=== PATIENT | female | born 1970 | race Caucasian/White ===

== ENCOUNTER 2018-01-06 18:20 | Emergency (ER) | payer OTHER ==
--- OUTSIDE RECORDS SUMMARY | 2018-01-06 18:23 | XMS REPORT | Clinical Summary ---
:1970 Author Organization [facility] Address [address] [place] [address] Care Team Providers Name Role Phone Robert Perez MD Primary Care Provider Allergies Active Allergy Reactions Severity Noted Date Comments Iodine And Iodide Containing Products 04/06/2017 Current Medications Prescription Sig. Disp. Refills Start Date End Date Status ALPRAZolam (NIRAVAM) 0.5 MG TAKE 1 TABLET BY 2 03/09/2017 Active disintegrating tablet MOUTH ONCE A DAY NEEDED amLODIPine (NORVASC) 5 mg Take 5 mg by 3 03/02/2017 Active tablet mouth once daily. atorvastatin (LIPITOR) 40 Take 40 mg by 3 03/02/2017 Active MG tablet mouth once daily. ciprofloxacin HCl (CIPRO) TK 1 T PO BID 0 02/26/2017 Active 250 MG tablet ciprofloxacin, mixture, Take by mouth 0 03/07/2017 Active (CIPRO XR) 500 mg 24 hr once daily. tablet doxycycline (VIBRA-TABS) TK 1 T PO BID 0 04/04/2017 Active 100 MG tablet WITH FOOD. ezetimibe (ZETIA) 10 mg Take 10 mg by 3 03/02/2017 Active tablet mouth once daily. lamoTRIgine (LaMICtal) 200 Take 200 mg by 0 03/30/2017 Active MG tablet mouth once daily. omeprazole (PriLOSEC) 40 MG Take 40 mg by 3 03/02/2017 Active capsule mouth once daily. phenazopyridine (PYRIDIUM) TK 1 T PO TID 0 02/26/2017 Active 200 MG tablet sertraline (ZOLOFT) 100 MG Take 100 mg by 0 03/30/2017 Active tablet mouth once daily. sulfamethoxazole-trimethopr TAKE 1 TABLET BY 0 04/01/2017 Active im (BACTRIM DS) 800-160 mg MOUTH EVERY 12 per tablet HOURS FOR 10 DAYS telmisartan (MICARDIS) 80 Take 80 mg by 3 03/03/2017 Active MG tablet mouth once daily. 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 Endometriosis of bladder; Adenomyosis; Pelvic pain in female; Dyspareunia, female 12/20/2017 Telephone Obstetrics Kajal Owens Gynecology Jose Ramirez MD 12/19/2017 Office Visit Obstetrics Chas Anders, Endometriosis ( Primary Dx); Gynecology Endometriosis, bladder; Pelvic pain; Adenomyosis; Dyspareunia, female 09/14/2017 Office Visit Chas Reynolds, Endometriosis ( Primary Dx); Gynecology Endometriosis, bladder; Pelvic pain; Adenomyosis 08/09/2017 Telephone Urology Leighann Zuleta MD 08/05/2017 Office Visit Urology Leighann Zuleta, History of hematuria ( Primary Dx); Endometriosis 04/12/2017 Procedure Pass Radiology 04/12/2017 Procedure Pass Radiology 04/12/2017 Orders Only Urology Mariza Dawson Gross hematuria LUIS F Nicole (Primary Dx) 04/06/2017 Lab Lab Leighann Zuleta MD 04/06/2017 Office Visit Urology Leighann Zuleta Gross hematuria MD (Primary Dx) after 01/05/2017 Family History Medical History Relation Name Comments Cancer Brother Alzheimer's disease Father Hypertension Father Cancer Mother Hypertension Mother Relation Name Status Comments Brother Alive colon Father Alive Mother Alive breast Social History Tobacco Use Types Packs/Day Years Used Date Current Every Day Smoker Smokeless Tobacco: Never Used Alcohol Use Drinks/Week oz/Week Comments No Sex Assigned at Date Recorded Not on file Last Filed Vital Signs Vital Sign Reading Time Taken Blood Pressure 141/85 12/19/2017 3:33 PM CDT Pulse 91 12/19/2017 3:33 PM CDT Temperature - - Respiratory Rate - - Oxygen Saturation - - Inhaled Oxygen Concentration - - Weight 113 kg (250 lb) 12/19/2017 3:33 PM CDT Height 165.1 cm (5' 5") 04/15/2017 9:25 AM CDT Body Mass Index 41.6 12/19/2017 3:33 PM CDT Plan of Treatment Date Type Specialty Care Team Description 01/25/2018 Office Visit Physical Therapy Chas Eisenberg MD [address] [facility] [address] [place], [place] [id number] Graciela Dempsey, PT 03/20/2018 Office Visit Obstetrics and Gynecology Chas Eisenberg MD [address] [facility] [address] [place], [place] [id number] Health Maintenance Due Date Last Done Comments PAP SMEAR 1989 INFLUENZA VACCINE 04/19/2018 Results US Pelvic Transvaginal (09/14/2017 11:38 AM) Specimen Performing Laboratory [facility] [address] [place] [address] Narrative Uterus:7.35x3.33x4.87 cm, texture heterogeneous Endometrium: 5.1 mm Free Fluid:Small amount Rt Ovary: 2.88x1.86x2.72 (2.49cm) Rt Adnexa:wnl Lt Ovary: 2.72x2.74x2.93 (2.8cm) Lt Adnexa:wnl kt POC urinalysis dipstick (08/05/2017 12:18 PM)Only the most recent of2 resultswithin the time period is included. Component Value Ref Range Color urine, POC Yellow Clarity urine, POC Clear Glucose urine, POC Negative Negative Bilirubin urine, POC Negative Negative Ketones urine, POC Negative Negative Specific gravity urine, POC 1.025 1.005 - 1.030 Blood urine, POC Moderate (A) Negative pH urine, POC 5.5 5.0, 5.5, 6.0, 6.5, 7.0, 7.5, 8.0, 8.5 Protein urine, POC Negative Negative Urobilinogen urine, POC <2.0 <2.0 Nitrite urine, POC Negative Negative Leukocyte esterase urine, POC Small (A) Negative Specimen Performing Laboratory Urine Urinalysis, automated with microscopy (08/05/2017 12:10 PM)Only the most recent of2 resultswithin the time period is included. Component Value Ref Range Color, UA DARK YELLOW YELLOW Appearance TURBID (A) CLEAR Specific gravity, urine 1.020 1.001 - 1.035 pH, urine 5.5 5.0 - 8.0 Glucose, urine NEGATIVE NEGATIVE Bilirubin, UA NEGATIVE NEGATIVE Ketones, UA NEGATIVE NEGATIVE Occult blood, urine 2+ (A) NEGATIVE Protein, UA NEGATIVE NEGATIVE Nitrite, UA NEGATIVE NEGATIVE Leukocyte esterase, UA 1+ (A) NEGATIVE WBC, UA 40-60 (A) < OR=5 /HPF RBC, UA 3-10 (A) < OR=2 /HPF Squamous epithelial cells, UA 0-5 < OR=5 /HPF Bacteria, UA NONE SEEN NONE SEEN /HPF Hyaline casts, UA NONE SEEN NONE SEEN /LPF Specimen Performing Laboratory [facility] Urine culture (08/05/2017 12:10 PM)Only the most recent of2 resultswithin the time period is included. Component Value Ref Range Urine culture SEE NOTE Comment: CULTURE, URINE, ROUTINE MICRO NUMBER:[id number] TEST STATUS: FINAL SPECIMEN SOURCE: URINE SPECIMEN QUALITY:ADEQUATE RESULT:Multiple organisms present, each less than 10,000 CFU/mL. These organisms, commonly found on external and internal genitalia, are considered to be colonizers. No further testing performed. Specimen Performing Laboratory Urine [facility] MRI Abdomen W Wo Contrast (04/15/2017 10:30 AM) Specimen Performing Laboratory [address] [address] Narrative EXAMINATION:MRI ABDOMEN W WO CONTRAST CLINICAL HISTORY:R31.0 Gross hematuria, Gross hematuria COMPARISON:None. TECHNIQUE: Multiplanar, multisequence MRI of the abdomen with and without intravenous gadolinium. FINDINGS: Kidneys are normal in size. There is an 8 mm cyst in the left midpole. No suspicious renal lesion. MRI is not sensitive for detection of stone disease. No obvious stones are seen. There is no hydronephrosis. No abnormal thickening or enhancement is seen along the visualized proximal course of the ureters. There is marked fatty infiltration of the liver. Unremarkable gallbladder, pancreas, and spleen. No adrenal mass. No retroperitoneal adenopathy. Colon diverticulosis. IMPRESSION: No suspicious renal lesion. Subcentimeter left midpole cyst. Marked hepatic steatosis. [facility]-[id number] Procedure Note [facility], Radiology Results - 04/15/2017 4:40 PM CDT EXAMINATION: MRI ABDOMEN W WO CONTRAST CLINICAL HISTORY: R31.0 Gross hematuria, Gross hematuria COMPARISON: None. TECHNIQUE: Multiplanar, multisequence MRI of the abdomen with and without intravenous gadolinium. FINDINGS: Kidneys are normal in size. There is an 8 mm cyst in the left midpole. No suspicious renal lesion. MRI is not sensitive for detection of stone disease. No obvious stones are seen. There is no hydronephrosis. No abnormal thickening or enhancement is seen along the visualized proximal course of the ureters. There is marked fatty infiltration of the liver. Unremarkable gallbladder, pancreas, and spleen. No adrenal mass. No retroperitoneal adenopathy. Colon diverticulosis. IMPRESSION: No suspicious renal lesion. Subcentimeter left midpole cyst. Marked hepatic steatosis. [facility]-[id number] MRI Pelvis W Wo Contrast (04/15/2017 10:30 AM) Specimen Performing Laboratory [facility] [address] [place] [address] Narrative EXAMINATION:MRI PELVIS W WO CONTRAST CLINICAL HISTORY:R31.0 Gross hematuria, GROSS HEMATURIA TECHNIQUE:Multiplanar, multisequence MR imaging examination of the pelvis obtained prior to and following gadolinium IV contrast. COMPARISON:None. IMPRESSION: 1.Uterus measures 8.1 x 3.1 x 6.1 cm. Nabothian cysts. Diffuse thickening of the junctional zone extending to the serosa, and measuring approximately 14 mm. Tiny punctate T1 and T2 hyperintense foci. Findings indicate adenomyosis. The endometrial stripe is poorly visualized, atrophic. section scar noted. 2.Ovaries demonstrate nothing unusual. 3.No free fluid or lymphadenopathy identified within the pelvis. Regional marrow signal show no suspicious lesion. 4.Wall thickening in the sigmoid colon partially imaged, and there is some mild stranding especially anteriorly in the proximal sigmoid colon. Scattered diverticula present. Findings indicate mild or early acute epididymitis. Follow-up to ensure resolution recommended. No fluid collection is identified indicate an abscess on the [id number] of this exam. 5.Urinary bladder mostly collapsed and not well seen. There does appear to be some wall irregularity and attenuation at the left posterior lateral aspect of the bladder dome, series 7 image 21. Detail limited as the bladder is slightly collapsed. Given the history of hematuria however, correlation with cystoscopy is advised. The visualized left ureter does not appear dilated. This is just anterolateral to the expected location of the left UVJ. 6.Visualized portions of the sciatic nerves well-maintained. SUMMARY: Early acute sigmoid diverticulitis. Follow-up to ensure resolution recommended. Focal wall irregularity and attenuation at the left posterolateral aspect of the bladder dome. Cystoscopy correlation advised. Adenomyosis. [facility]-[id number] Procedure Note [facility]m Interface, Radiology Results Incoming - 04/15/2017 8:11 PM CDT EXAMINATION: MRI PELVIS W WO CONTRAST CLINICAL HISTORY: R31.0 Gross hematuria, GROSS HEMATURIA TECHNIQUE: Multiplanar, multisequence MR imaging examination of the pelvis obtained prior to and following gadolinium IV contrast. COMPARISON: None. IMPRESSION: 1. Uterus measures 8.1 x 3.1 x 6.1 cm. Nabothian cysts. Diffuse thickening of the junctional zone extending to the serosa, and measuring approximately 14 mm. Tiny punctate T1 and T2 hyperintense foci. Findings indicate adenomyosis. The endometrial stripe is poorly visualized, atrophic. section scar noted. 2. Ovaries demonstrate nothing unusual. 3. No free fluid or lymphadenopathy identified within the pelvis. Regional marrow signal show no suspicious lesion. 4. Wall thickening in the sigmoid colon partially imaged, and there is some mild stranding especially anteriorly in the proximal sigmoid colon. Scattered diverticula present. Findings indicate mild or early acute epididymitis. Follow- up to ensure resolution recommended. No fluid collection is identified indicate an abscess on the [id number] of this exam. 5. Urinary bladder mostly collapsed and not well seen. There does appear to be some wall irregularity and attenuation at the left posterior lateral aspect of the bladder dome, series 7 image 21. Detail limited as the bladder is slightly collapsed. Given the history of hematuria however, correlation with cystoscopy is advised. The visualized left ureter does not appear dilated. This is just anterolateral to the expected location of the left UVJ. 6. Visualized portions of the sciatic nerves well-maintained. SUMMARY: Early acute sigmoid diverticulitis. Follow-up to ensure resolution recommended. Focal wall irregularity and attenuation at the left posterolateral aspect of the bladder dome. Cystoscopy correlation advised. Adenomyosis. [facility]-[id number] Basic metabolic panel (04/06/2017 12:49 PM) Component Value Ref Range Glucose 117 (H) 65 - 99 mg/dL Comment: Fasting reference interval For someone without known diabetes, a glucose value between 100 and 125 mg/dL is consistent with prediabetes and should be confirmed with a follow-up test. BUN, whole blood 12 7 - 25 mg/dL Creatinine 1.00 0.50 - 1.10 mg/dL EGFR Non-Afr. Mauritian 67 > OR=60 mL/min/1.73m2 EGFR 77 > OR=60 mL/min/1.73m2 BUN/creatinine ratio NOT APPLICABLE 6 - 22 (calc) Sodium 137 135 - 146 mmol/L Potassium 4.5 3.5 - 5.3 mmol/L Chloride 100 98 - 110 mmol/L CO2 28 20 - 31 mmol/L Calcium 10.2 8.6 - 10.2 mg/dL Specimen Performing Laboratory [facility] Surgical pathology request (04/06/2017 10:38 AM) Component Value Ref Range Surgical pathology report See link below for PDF Lab Report Specimen Performing Laboratory [facility] DEPARTMENT OF PATHOLOGY AND GENOMIC MEDICINE [address] [place] [phone] after 01/05/2017 Insurance Payer Benefit Plan / Group Subscriber ID Type Phone Address AETNA AETNA PPO OPEN CHOICE xxxxxxxxx PPO Home: [id number] [phone] [place] [id number]
[2018-01-06] MEDS ORDERED: TETANUS & DIPHTHERIA TOX,ADULT 0.5 ML VIAL ONE (19:00)
[2018-01-06] MEDS ORDERED: HYDROCODONE/APAP 10/325 TAB ONE (19:10)
[2018-01-06] MEDS ORDERED: LIDOCAINE 2% MPF 5 ML VIAL ONE (19:41)
--- NOTE | 2018-01-06 20:21 | EDPHYS ---
Physician Documentation [facility] Name: Kelley Ordaz Age: 47 yrs Sex: Female : 1970 Arrival Date: 01/06/2018 Time: 18:24 Bed 16 Private MD: ED Physician Ted Booker HPI: 01/06 20:30 This 47 yrs old Female presents to ER via Wheelchair with complaints of pm1 Insect Bite. 20:30 The patient presents with cellulitis of the right leal. Description: The affected area pm1 is approximately 1.5 cm(s), circular. Onset: The symptoms/episode began/occurred 2 day(s) ago. Possible cause(s): Shaving legs. Associated signs and symptoms: Pertinent negatives: discharge, drainage, fever. Modifying factors: the symptoms are alleviated by nothing, the symptoms are aggravated by walking, touching. Severity of symptoms: in the emergency department the symptoms are actually worse. The patient has experienced similar episodes in the past, a few times. 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 - Social history:: Smoking status: Patient uses tobacco products, smokes one pack cigarettes per day. ROS: 20:30 Constitutional: Negative for fever, chills, and weight loss, Cardiovascular: Negative pm1 for chest pain, palpitations, and edema, Respiratory: Negative for shortness of breath, cough, wheezing, and pleuritic chest pain, Abdomen/GI: Negative for abdominal pain, nausea, vomiting, diarrhea, and constipation, Back: Negative for injury and pain. 20:30 Neuro: Negative for headache, weakness, numbness, tingling, and seizure. 20:30 Skin: Positive for cellulitis, of the right leal. Exam: 20:30 Constitutional: This is a well developed, well nourished patient who is awake, alert, pm1 and in no acute distress. Head/Face: Normocephalic, atraumatic. Chest/axilla: Normal chest wall appearance and motion. Nontender with no deformity. No lesions are appreciated. Cardiovascular: Regular rate and rhythm with a normal S1 and S2. No gallops, murmurs, or rubs. Normal PMI, no JVD. No pulse deficits. Respiratory: Lungs have equal breath sounds bilaterally, clear to auscultation and percussion. No rales, rhonchi or wheezes noted. No increased work of breathing, no retractions or nasal flaring. Abdomen/GI: Soft, non-tender, with normal bowel sounds. No distension or tympany. No guarding or rebound. No evidence of tenderness throughout. Back: No spinal tenderness. No costovertebral tenderness. Full range of motion. 20:30 Skin: abscess, not appreciated, cellulitis, that is mild, on the right leal. Vital Signs: 18:44 BP 184 / 70; Pulse 92; Resp 16; Temp 98.3; Pulse Ox 100% on R/A; Weight 113.4 kg; hb Height 5 ft. 6 in. (167.64 cm); Pain 9/10; 19:12 BP 156 / 86; Pulse 95; Resp 18; Pulse Ox 98% on R/A; ea 19:49 BP 179 / 98; Pulse 87; Resp 18; Pulse Ox 99% on R/A; ea 20:43 BP 159 / 85; Pulse 78; Resp 18; Temp 98.2; Pulse Ox 99% on R/A; Pain 3/10; ea 18:44 Body Mass Index 40.35 (113.40 kg, 167.64 cm) hb MDM: 18:48 Patient medically screened. pm1 20:15 ED course: Needle aspiration performed without any purulent drainage. Will treat pm1 patient with antibiotics for cellulitis. Local anesthesia with lidocaine 1 mL. Patient tolerated procedure well. 20:19 Data reviewed: vital signs. Data interpreted: Pulse oximetry: on room air is 99 %. pm1 Interpretation: normal. Counseling: I had a detailed discussion with the patient and/or guardian regarding: the historical points, exam findings, and any diagnostic results supporting the discharge/admit diagnosis, the need for outpatient follow up, to return to the emergency department if symptoms worsen or persist or if there are any questions or concerns that arise at home. Administered Medications: 19:12 Drug: [place] 10 mg-325 mg 1 tabs Route: PO; ea 20:44 Follow up: Response: No adverse reaction; Pain is decreased ea 20:30 Drug: Lidocaine (1 %) 5 ml {Note: administered by provider.} Volume: 5 ml; Route: ea Infiltration; Disposition: 01/06/18 20:20 Discharged to Home. Impression: Cellulitis of right lower limb. - Condition is Stable. - Discharge Instructions: Cellulitis. - Prescriptions for Bactrim DS 800- 160 mg Oral Tablet - take 1 tablet by ORAL route every 12 hours for 10 days; 20 tablet. Tylenol- Codeine #3 300-30 mg Oral Tablet - take 2 tablets by ORAL route every 6 hours As needed; 20 tablet. - Medication Reconciliation Form, Thank You Letter, Antibiotic Education, Prescription Opioid Use form. - Follow up: Emergency Department; When: As needed; Reason: Worsening of condition. Follow up: Private Physician; When: 2 - 3 days; Reason: Recheck today's complaints, Continuance of care, Re-evaluation by your physician. - Problem is new. - Symptoms have improved. Addendum: 01/21/2018 19:55 Co-signature as Attending Physician, Ted Booker MD I agree with the assessment and k dr plan of care. Signatures: Ted Booker MD MD [facility] Dexter Gagnon NP INSTRUMENT SPECIALIST pm1 Mery Masterson RN RN Beronica Gold RN RN ea Corrections: (The following items were deleted from the chart) 01/06 20:47 20:20 01/06/2018 20:20 Discharged to Home. Impression: Cellulitis of right lower limb. ea Condition is Stable. Forms are Medication Reconciliation Form, Thank You Letter, Antibiotic Education, Prescription Opioid Use. Follow up: Emergency Department; When: As needed; Reason: Worsening of condition. Follow up: Private Physician; When: 2 - 3 days; Reason: Recheck today's complaints, Continuance of care, Re-evaluation by your physician. Problem is new. Symptoms have improved. pm1
--- NOTE | 2018-01-06 20:21 | ER ---
Nurse's Notes [facility] Name: Kelley Ordaz Age: 47 yrs Sex: Female : 1970 Arrival Date: 01/06/2018 Time: 18:24 Bed 16 Private MD: Diagnosis: Cellulitis of right lower limb Presentation: 01/06 18:43 Presenting complaint: Patient states: Painful insect bite on right leal x 2 days. Pt hb report pain has become severe and she is unable to bear weight. Seen at urgent care today for same s/s, received clindamycin IM. Transition of care: patient was not received from another setting of care. Onset of symptoms was January 05, 2018. Care prior to arrival: None. 18:43 Method Of Arrival: Wheelchair hb 18:43 Acuity: DEJUAN 3 hb 20:46 Initial Sepsis Screen: Does the patient meet any 2 criteria? No. Patient's initial ea sepsis screen is negative. Does the patient have a suspected source of infection? No. Patient's initial sepsis screen is negative. Triage Assessment: 19:30 Bite description: bite sustained to right leal by pt reports she was bitten by spider. 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 - Social history:: Smoking status: Patient uses tobacco products, smokes one pack cigarettes per day. Screenin:06 Abuse screen: Denies threats or abuse. Nutritional screening: No deficits noted. ea Tuberculosis screening: No symptoms or risk factors identified. Fall Risk None identified. Assessment: 19:03 General: Appears in no apparent distress. Behavior is calm, cooperative, appropriate ea for age. Pain: Complains of pain in right leal Pain currently is 10 out of 10 on a pain scale. Quality of pain is described as aching. Neuro: Level of Consciousness is awake, alert, obeys commands, Oriented to person, place, time, situation. Cardiovascular: Patient's skin is warm and dry. Respiratory: Airway is patent Respiratory effort is even, unlabored, Respiratory pattern is regular, symmetrical. GI: No signs and/or symptoms were reported involving the gastrointestinal system. : No signs and/or symptoms were reported regarding the genitourinary system. EENT: No signs and/or symptoms were reported regarding the EENT system. Derm: Skin patient reports she was bit by an insect. red area noted to right leal Skin is normal. 20:42 Reassessment: Patient and/or family updated on plan of care and expected duration. Pain ea level reassessed. Patient is alert, oriented x 3, equal unlabored respirations, skin warm/dry/pink. Discharge instruction given to patient, verbalized the understanding of instruction. Vital Signs: 18:44 BP 184 / 70; Pulse 92; Resp 16; Temp 98.3; Pulse Ox 100% on R/A; Weight 113.4 kg; hb Height 5 ft. 6 in. (167.64 cm); Pain 9/10; 19:12 BP 156 / 86; Pulse 95; Resp 18; Pulse Ox 98% on R/A; ea 19:49 BP 179 / 98; Pulse 87; Resp 18; Pulse Ox 99% on R/A; ea 20:43 BP 159 / 85; Pulse 78; Resp 18; Temp 98.2; Pulse Ox 99% on R/A; Pain 3/10; ea 18:44 Body Mass Index 40.35 (113.40 kg, 167.64 cm) hb ED Course: 18:24 Patient arrived in ED. al2 18:44 Triage completed. hb 18:45 Arm band placed on right wrist. hb 18:47 Dexter Gagnon NP is PHCP. pm1 18:47 Ted Booker MD is Attending Physician. pm1 19:03 Beronica Gold, ABI is Primary Nurse. ea 19:07 Patient has correct armband on for positive identification. Bed in low position. Call ea light in reach. Side rails up X 1. 20:42 No provider procedures requiring assistance completed. Patient did not have IV access ea during this emergency room visit. Administered Medications: 19:12 Drug: [place] 10 mg-325 mg 1 tabs Route: PO; ea 20:44 Follow up: Response: No adverse reaction; Pain is decreased ea 20:30 Drug: Lidocaine (1 %) 5 ml {Note: administered by provider.} Volume: 5 ml; Route: ea Infiltration; Outcome: 20:20 Discharge ordered by . pm1 20:45 Discharged to home via wheelchair. ea 20:45 Discharged to home via wheelchair, with significant other. 20:45 Condition: improved 20:45 Discharge instructions given to patient, family, Instructed on discharge instructions, follow up and referral plans. medication usage, Demonstrated understanding of instructions, follow-up care, medications, Prescriptions given X 2. 20:47 Patient left the ED. ea Signatures: Dexter Gagnon, SHEILA MECHANICAL ENGINEERING TECHNOLOGIST pm1 Mery Masterson RN RN hb Antunez, Elena, RN RN ea Love, Angelica al2
[2018-01-06 20:55] VITALS: BP 159/85; TEMP 98.2; O2SAT 99
== END 2018-01-06 20:47 | disposition home or self-care (01) ==
LOC: ER 18:20
DX: L03.115 Cellulitis of right lower limb (principal); E78.5 Hyperlipidemia, unspecified; I10 Essential (primary) hypertension; F32.9 Major depressive disorder, single episode, unspecified; Z91.09 Other allergy status, other than to drugs and biological substances
CPT/HCPCS: 90714; 99283

== ENCOUNTER 2018-02-20 12:54 | Emergency (ER) | payer SELFPAY ==
--- OUTSIDE RECORDS SUMMARY | 2018-02-20 12:56 | XMS REPORT | Clinical Summary ---
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 Endometriosis of bladder; Adenomyosis; Pelvic pain in [...] Zuleta Gross hematuria MD (Primary Dx) after 02/19/2017 Family History Medical History Relation Name Comments [...] Treatment Date Type Specialty Care Team Description 03/20/2018 Office Visit Obstetrics and Gynecology Chas Eisenberg MD [address] [facility] [address] [place] [address] Health Maintenance Due Date Last Done Comments CERVICAL CANCER SCREENING 1989 INFLUENZA VACCINE 04/19/2018 Results US Pelvic Transvaginal (09/14/2017 11:38 AM) Specimen Performing Laboratory [facility] [address] [place] [address] Narrative Uterus:7.35x3.33x4.87 cm, texture heterogeneous Endometrium: 5.1 [...] SEE NOTE Comment: CULTURE, URINE, ROUTINE MICRO NUMBER:[id number] TEST STATUS: FINAL SPECIMEN SOURCE: URINE SPECIMEN QUALITY:ADEQUATE RESULT:Multiple organisms present, each less than 10,000 CFU/mL. These organisms, commonly found on external and internal genitalia, are considered to be colonizers. No further testing performed. Specimen Performing Laboratory Urine [facility] MRI Abdomen W Wo Contrast (04/15/2017 10:30 AM) Specimen Performing Laboratory [address] [address] Narrative EXAMINATION:MRI ABDOMEN W WO CONTRAST CLINICAL [...] Subcentimeter left midpole cyst. Marked hepatic steatosis. [id number] Procedure Note [facility], Radiology Results - 04/15/2017 4:40 PM [...] Subcentimeter left midpole cyst. Marked hepatic steatosis. [id number] MRI Pelvis W Wo Contrast (04/15/2017 10:30 AM) Specimen Performing Laboratory [facility] [address] [place] [address] Narrative EXAMINATION:MRI PELVIS W WO CONTRAST CLINICAL [...] is identified indicate an abscess on the rvcak-pw-zbdb of this exam. 5.Urinary bladder mostly collapsed [...] the bladder dome. Cystoscopy correlation advised. Adenomyosis. [id number] Procedure Note Hm Interface, Radiology Results Incoming [...] is identified indicate an abscess on the uujxz-ru-gszq of this exam. 5. Urinary bladder mostly [...] the bladder dome. Cystoscopy correlation advised. Adenomyosis. [id number] Basic metabolic panel (04/06/2017 12:49 PM) Component Value Ref Range Glucose 117 (H) 65 - 99 mg/dL Comment: Fasting reference interval For someone without known diabetes, a glucose value between 100 and 125 mg/dL is consistent with prediabetes and should be confirmed with a follow-up test. BUN, whole blood 12 7 - 25 mg/dL Creatinine 1.00 0.50 - 1.10 mg/dL EGFR Non-Afr. Slovenian 67 > OR=60 mL/min/1.73m2 EGFR 77 > [...] for PDF Lab Report Specimen Performing Laboratory [facility] DEPARTMENT OF PATHOLOGY AND GENOMIC MEDICINE [address] [place] [address] after 02/19/2017 Insurance Payer Benefit Plan / Group Subscriber ID Type Phone Address AETNA AETNA PPO OPEN CHOICE xxxxxxxxx PPO
--- NOTE | 2018-02-20 14:45 | ER ---
Nurse's Notes [facility] Name: Kelley Ordaz Age: 47 yrs Sex: Female : 1970 Arrival Date: 02/20/2018 Time: 12:57 Bed Waiting Private MD: Edvin Perez B Diagnosis: Presentation: 02/20 13:09 Presenting complaint: Patient states: "I have like an insect bite on my left hip area aa5 since and Tuesday it started bleeding and getting more red". Transition of care: patient was not received from another setting of care. Onset of symptoms was 2017. Risk Assessment: Do you want to hurt yourself or someone else? Patient reports no desire to harm self or others. Initial Sepsis Screen: Does the patient meet any 2 criteria? No. Patient's initial sepsis screen is negative. Does the patient have a suspected source of infection? No. Patient's initial sepsis screen is negative. Care prior to arrival: None. 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 - Social history:: Smoking status: Patient uses tobacco products, smokes one pack cigarettes per day. - Ebola Screening: : No symptoms or risks identified at this time. Vital Signs: 13:11 BP 145 / 74; Pulse 88; Resp 18 S; Temp 97.0(TE); Pulse Ox 96% on R/A; Weight 113.4 kg aa5 (R); Height 5 ft. 6 in. (167.64 cm) (R); Pain 6/10; 13:11 Body Mass Index 40.35 (113.40 kg, 167.64 cm) aa5 ED Course: 12:57 Patient arrived in ED. mr 12:58 Edvin Perez MD is Private Physician. mr 13:10 Triage completed. aa5 13:10 Arm band placed on. aa5 13:55 Sushma Resendez FNP-C is PSYCHIATRICP. snw 13:55 Navneet Taylor MD is Attending Physician. snw 14:44 Kenzie Malik, RN is Primary Nurse. iw Administered Medications: No medications were administered Outcome: 14:45 Patient left the ED. iw 14:45 Eloped from waiting room, before seeing physician Time discovered patient gone: February at 14:45 Signatures: Sushma Resendez FNP-C CHIEF TECHNOLOGY OFFICER-[facility] Aleyda Barrett mr Kenzie Malik, RN RN iw Crystal Mccurdy RN RN aa5
[2018-02-20 14:48] VITALS: BP 145/74; TEMP 97; O2SAT 96
== END 2018-02-20 14:45 | disposition left against medical advice (07) ==
LOC: ER 12:54
DX: Z53.21 Procedure and treatment not carried out due to patient leaving prior to being seen by health care provider (principal)
CPT/HCPCS: 99281

== ENCOUNTER 2018-02-22 11:43 | Day surgery (SDC) | payer OTHER ==
--- OUTSIDE RECORDS SUMMARY | 2018-02-22 11:46 | XMS REPORT | Clinical Summary ---
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 Endometriosis of bladder; Adenomyosis; Pelvic pain in [...] Zuleta Gross hematuria MD (Primary Dx) after 02/21/2017 Family History Medical History Relation Name Comments [...] Visit Obstetrics and Gynecology Chas Eisenberg MD [address] [facility] [address] [place] [address] Health Maintenance Due Date Last Done Comments CERVICAL CANCER SCREENING 1989 INFLUENZA VACCINE 04/19/2018 Results US Pelvic Transvaginal (09/14/2017 11:38 AM) Specimen Performing Laboratory [facility] [address] [place] [address] Narrative Uterus:7.35x3.33x4.87 cm, texture heterogeneous Endometrium: 5.1 [...] SEE NOTE Comment: CULTURE, URINE, ROUTINE MICRO NUMBER:[id number] TEST STATUS: FINAL SPECIMEN SOURCE: URINE SPECIMEN QUALITY:ADEQUATE RESULT:Multiple organisms present, each less than 10,000 CFU/mL. These organisms, commonly found on external and internal genitalia, are considered to be colonizers. No further testing performed. Specimen Performing Laboratory Urine [facility] MRI Abdomen W Wo Contrast (04/15/2017 10:30 AM) Specimen Performing Laboratory [address] [address] Narrative EXAMINATION:MRI ABDOMEN W WO CONTRAST CLINICAL [...] Subcentimeter left midpole cyst. Marked hepatic steatosis. [facility]-[id number] Procedure Note [facility], Radiology Results - 04/15/2017 4:40 [...] Subcentimeter left midpole cyst. Marked hepatic steatosis. [facility]-[id number] MRI Pelvis W Wo Contrast (04/15/2017 10:30 AM) Specimen Performing Laboratory [facility] [address] [place] [address] Narrative EXAMINATION:MRI PELVIS W WO CONTRAST CLINICAL [...] is identified indicate an abscess on the awbiy-ir-eouq of this exam. 5.Urinary bladder mostly collapsed [...] the bladder dome. Cystoscopy correlation advised. Adenomyosis. [facility]-[id number] Procedure Note Hm Interface, Radiology Results Incoming [...] is identified indicate an abscess on the ssrxz-yu-bujc of this exam. 5. Urinary bladder mostly [...] the bladder dome. Cystoscopy correlation advised. Adenomyosis. [facility]-[id number] Basic metabolic panel (04/06/2017 12:49 PM) Component Value Ref Range Glucose 117 (H) 65 - 99 mg/dL Comment: Fasting reference interval For someone without known diabetes, a glucose value between 100 and 125 mg/dL is consistent with prediabetes and should be confirmed with a follow-up test. BUN, whole blood 12 7 - 25 mg/dL Creatinine 1.00 0.50 - 1.10 mg/dL EGFR Non-Afr. [place]er 67 > OR=60 mL/min/1.73m2 EGFR 77 > [...] for PDF Lab Report Specimen Performing Laboratory [facility] DEPARTMENT OF PATHOLOGY AND GENOMIC MEDICINE [address] [place] [address] after 02/21/2017 Insurance Payer Benefit Plan / Group Subscriber ID Type Phone Address AETNA AETNA PPO OPEN CHOICE xxxxxxxxx PPO
[2018-02-22] MEDS ORDERED: Ringers Lactate 1,000 ML IV ONE (11:51)
[2018-02-22] MEDS ORDERED: PROPOFOL 200 MG/20 ML VIAL IV ONE (12:03)
[2018-02-22] MEDS ORDERED: FENTANYL CITR 100 MCG/2 ML ONE (12:04)
[2018-02-22] MEDS ORDERED: LIDOCAINE 1% MPF 5 ML VIAL ONE (12:04)
[2018-02-22] MEDS ORDERED: MIDAZOLAM HCL 2 MG/2 ML INJ ONE (12:04)
[2018-02-22] MEDS ORDERED: ONDANSETRON HCL 40 MG/20 ML VIAL ONE (12:06)
[2018-02-22 12:23] LABS: Absolute Lymphocytes (CBC) 2.4 K/uL (0.7-4.9); Absolute Monocytes 0.7 K/uL (0.1-1.3); Basophils % 1.1 % (0-1.3); Eosinophils % 2.1 % (0-4.4); Lymphocytes % 23.1 % (15.3-44.8); MCH 30.5 pg (27.0-35.0); MCV 88.5 fL (80-100); MPV 8.8 fL (7.6-11.3); Monocytes % 6.6 % (3.3-12.3); RBC Red Blood Cell Count 4.98 M/uL (3.86-4.86)
[2018-02-22 12:26] LABS: Specific Gravity 1.025 (1.005-1.030)
[2018-02-22] MEDS: CEFAZOLIN/SWI 1gm 1 GM/10 ML SYR ONE ×2 (12:27→12:31)
--- NOTE | 2018-02-22 12:27 | RAD REPORT ---
EXAM DESCRIPTION: RAD - Chest Pa And Lat (2 Views) - 02/22/2018 12:22 pm CLINICAL HISTORY: Preop chest, emergent drainage of soft tissue abscess COMPARISON: December 2016, August 2016 TECHNIQUE: PA and lateral views of the chest were obtained. FINDINGS: The lungs are clear of an acute infiltrate, mass or failure finding. Lung markings are sim ilar to the comparison studies. Heart size is normal and central vasculature is within normal limit s. No pleural effusion or pneumothorax seen. No acute bony finding noted. No aortic abnormality. IMPRESSION: No acute cardiopulmonary process. No significant change back to August 2016.
[2018-02-22 12:34] LABS: Potassium 3.8 mEq/L (3.6-5.0)
[2018-02-22] MEDS ORDERED: EPHEDRINE SULF 50 MG/5 ML SYR ONE (12:39)
[2018-02-22] MEDS ORDERED: BUPIVACAINE 0.5% Inj,MDV 50 mL VIAL ONE (12:42)
--- NOTE | 2018-02-22 13:01 | P.BOP ---
Preoperative diagnosis: left buttock cellulitis / abscess Postoperative diagnosis: same Primary procedure: Incision and drainage of left buttock complex abscess [id number] Estimated blood loss: <10cc Specimen: necrotic devitalized tissue Findings: as above Anesthesia: General Complications: None Drain(s): Other Transferred to: Recovery Room Condition: Good
[2018-02-22] MEDS: MEPERIDINE HCL 50 MG/ML AMP ONE ×2 (13:13→13:18)
[2018-02-22] MEDS ORDERED: CODEINE 30MG/APAP 300MG TAB ONE (13:38)
[2018-02-22 14:05] VITALS: BP 115/64; TEMP 98.1; O2SAT 92
--- NOTE | 2018-02-22 16:31 | DS ---
Date of Discharge: 02/22/2018 Diagnosis: Left buttock cellulitis and abscess. Procedure: Incision and drainage of complex left buttock cellulitis and abscess, 5 x 5 x 3 cm. Disposition: Home. Activity: As tolerated. No heavy lifting. Followup: Follow up in my office in 1 week. Call for appointment [phone]. Discharge Medications: Include normal saline. Dressing changes daily. CHARLEE/JACKELINE Voice ID: [id number] Report ID: [id number]
--- NOTE | 2018-02-22 23:31 | OP ---
Date of Procedure: 02/22/2018 Surgeon: Pepe Coats MD Preoperative Diagnosis: Left buttocks cellulitis and abscess. Postoperative Diagnosis: Left buttocks cellulitis and abscess. Procedures: Incision and drainage of left buttock complex abscess, 5 x 5 x 3 cm. Specimen: Necrotic tissue. Anesthesia: General plus local. Indications: This is a case of a 47-year-old patient, comes to us with above diagnosis. I fully exp lained the benefits, alternatives, and risks of incision and drainage of complex abscess and debridem ent, which include, but are not limited to infection, bleeding, damage to adjacent structures anesthe rony complications, nonhealing wound, NE, and even . She also understood this may not relieve an y symptoms. She might need more than one surgical intervention. She also understood the importance of wound care and she thinks her and her can do the dressing changes. The patient came this morning. The area was marked by me and the patient in the holding room. Description Of Procedure: The patient was brought to the operating room and placed in the supine pos ition. Anesthesia was done without complication. A time-out was called. The patient was placed in lateral decubitus position with proper protection. The area was prepped and draped in usual sterile fashion. An incision was made in the skin in a circular fashion since the patient has necrotic tissu e that needs to be opened that led into an abscess. With multiple loculations, they were explored, o pened, irrigated, and hemostasis was obtained. Those loculations were aspirated. The area was irrig ated. was then debrided. Then, we noticed the cavity to be about 5 x 5 x 3 cm. The area was packed with wet-to-dry dressing. The patient tolerated the procedure well. The patient was sent to recovery in stable condition. CHARLEE/JACKELINE Voice ID: [id number] Report ID: [id number]
== END 2018-02-22 14:45 | disposition home or self-care (01) ==
LOC: OR 11:43
PROVIDERS: ATTEND Surgery
PROC: 0J990ZZ Drainage of Buttock Subcutaneous Tissue and Fascia, Open Approach (ICD-10-PCS; principal; 2018-02-22 12:30)
DX: L02.31 Cutaneous abscess of buttock (principal); I10 Essential (primary) hypertension; I25.10 Atherosclerotic heart disease of native coronary artery without angina pectoris; K21.9 Gastro-esophageal reflux disease without esophagitis; F17.210 Nicotine dependence, cigarettes, uncomplicated; Z88.3 Allergy status to other anti-infective agents; Z82.49 Family history of ischemic heart disease and other diseases of the circulatory system; Z80.0 Family history of malignant neoplasm of digestive organs; Z80.3 Family history of malignant neoplasm of breast
CPT/HCPCS: 36415; 71046; 80048; 81025; 82962; 85025; 87070; 87075; 87077; 87186; 87205; 88304; J0690; J2175; J2250; J2405; J3010

== ENCOUNTER 2018-11-11 12:39 | Inpatient (IN) | payer OTHER ==
--- OUTSIDE RECORDS SUMMARY | 2018-11-11 12:41 | XMS REPORT | Clinical Summary ---
:1970 Author Organization [facility] Address [address] [place] [address] Care Team Providers Name Role Phone Robert Perez MD Primary Care Provider Allergies Active Allergy Reactions Severity Noted Date Comments Iodine And Iodide Containing Products 04/06/2017 Medications Medication Sig Dispensed Refills Start Date End Date Status ALPRAZolam (NIRAVAM) 0.5 TAKE 1 TABLET 2 03/09/2017 Active MG disintegrating tablet BY MOUTH ONCE A DAY NEEDED amLODIPine (NORVASC) [...] Active tablet mouth once daily. lamoTRIgine (LaMICtal) Take 200 mg by 0 03/30/2017 Active 200 MG tablet mouth once daily. omeprazole (PriLOSEC) 40 Take 40 mg by 3 03/02/2017 Active MG capsule mouth once daily. phenazopyridine TK 1 T PO TID 0 02/26/2017 Active (PYRIDIUM) 200 MG tablet sertraline (ZOLOFT) 100 Take 100 mg by 0 03/30/2017 Active MG tablet mouth once daily. sulfamethoxazole-trimetho TAKE 1 TABLET 0 04/01/2017 Active prim (BACTRIM DS) 800-160 BY MOUTH EVERY mg per tablet 12 HOURS FOR 10 DAYS telmisartan (MICARDIS) 80 Take 80 mg by 3 03/03/2017 Active MG tablet mouth once daily. Active Problems Not on file Encounters Date Type Specialty Care Team Description 12/29/2017 Orders Only Obstetrics and Susi Rose, Endometriosis ( Primary Dx); Gynecology INTELLIGENCE OPERATIONS Endometriosis of bladder; Adenomyosis; Pelvic pain in female; Dyspareunia, female 12/20/2017 Telephone Obstetrics and Kajal Prieto Gynecology Jose Ramirez MD 12/19/2017 Office Visit Obstetrics and Chas Eisenberg, Endometriosis ( Primary Dx); Gynecology Endometriosis, bladder; Pelvic pain; Adenomyosis; Dyspareunia, female after 11/10/2017 Family History Medical History Relation Name Comments Cancer Brother Alzheimer's disease Father Hypertension Father Cancer Mother Hypertension Mother Relation Name Status Comments Brother Alive colon Father Alive Mother Alive breast Social History Tobacco Use Types Packs/Day Years Used Date Current Every Day Smoker Smokeless Tobacco: Never Used Alcohol Use Drinks/Week oz/Week Comments No Sex Assigned at Date Recorded Not on file Job Start Date Occupation Industry Not on file Not on file Not on file Travel History Travel Start Travel End No recent travel history available. Last Filed Vital Signs Vital Sign Reading Time Taken Blood Pressure 141/85 12/19/2017 3:33 PM CDT Pulse 91 12/19/2017 3:33 PM CDT Temperature - - Respiratory Rate - - Oxygen Saturation - - Inhaled Oxygen Concentration - - Weight 113 kg (250 lb) 12/19/2017 3:33 PM CDT Height - - Body Mass Index 41.6 12/19/2017 3:33 PM CDT Plan of Treatment Health Maintenance Due Date Last Done Comments CERVICAL CANCER SCREENING 1989 INFLUENZA VACCINE 04/19/2018 BREAST CANCER SCREENING 2018 COLON CANCER SCREENING 2018 SHINGLES VACCINES (#1) 2018 Results Not on fileafter 11/10/2017 Insurance Payer Benefit Plan / Group Subscriber ID Type Phone Address AETNA AETNA PPO OPEN CHOICE xxxxxxxxx PPO Advance Directives Patient has advance care planning documents on file. For more information, please contact:Jayesh Betts[address] [place] [address]
[2018-11-11 13:33] LABS: Protime INR 1.04
[2018-11-11 13:36] LABS: Absolute Lymphocytes (CBC) 2.4 K/uL (0.7-4.9); Absolute Monocytes 0.7 K/uL (0.1-1.3); Absolute Neutrophil 6.7 K/uL (1.8-8.0); Basophils % 1.2 % (0-1.3); Eosinophils % 2.9 % (0-4.4); Hematocrit 42.9 % (36.0-45.0); Lymphocytes % 23.3 % (15.3-44.8); MPV 8.7 fL (7.6-11.3); Monocytes % 6.8 % (3.3-12.3); RBC Red Blood Cell Count 4.82 M/uL (3.86-4.86)
[2018-11-11 13:50] LABS: ALT/SGPT 29 U/L (12-78); AST/SGOT 18 U/L (15-37); Albumin 3.6 g/dL (3.4-5.0); Alkaline Phosphatase 77 U/L (45-117); BUN Blood Urea Nitrogen 13 mg/dL (7-18); Bicarbonate 26 mmol/L (21-32); Bilirubin Direct < 0.1 mg/dL (0-0.2); Bilirubin Total 0.4 mg/dL (0.2-1.0); Glucose Level 144 mg/dL (74-106); Lipase 124 U/L (73-393); Magnesium 2.1 mg/dL (1.8-2.4); NT PRO-BNP 201 pg/mL (<125); Potassium 3.5 mmol/L (3.5-5.1); Protein, Total 7.4 g/dL (6.4-8.2); Sodium Level 139 mmol/L (136-145)
--- NOTE | 2018-11-11 13:58 | RAD REPORT ---
EXAM DESCRIPTION: RAD - Chest Single View - 11/11/2018 1:26 pm CLINICAL HISTORY: Cough, chest pain COMPARISON: February 2018 TECHNIQUE: AP portable chest image was obtained 1323 hours . FINDINGS: Lung volumes are low accentuating baseline interstitial pattern. No peripheral mass or con solidation. No significant failure or volume overload suspected. Heart and vasculature are normal. No measurable pleural effusion and no pneumothorax. No acute bony abnormality seen. No acute aortic fin dings suspected. IMPRESSION: Shallow inspiration chest film without acute cardiopulmonary finding. No significant change from comparison.
--- NOTE | 2018-11-11 13:59 | ER ---
Nurse's Notes [facility] Name: Kelley Ordaz Age: 48 yrs Sex: Female : 1970 Arrival Date: 11/11/2018 Time: 12:41 Bed 25 Private MD: Edvin Perez B Diagnosis: Other chest pain;Dyspnea;Essential (primary) hypertension Presentation: 11/11 13:02 Presenting complaint: Patient states: Chest pain that started this morning, reports sg having shortness of breath that had resolved prior to arrival, still becomes short of breath with walking short distances, denies N/V/D/Fever. Transition of care: patient was not received from another setting of care. Onset of symptoms was November 11, 2018. Risk Assessment: Do you want to hurt yourself or someone else? Patient reports no desire to harm self or others. Initial Sepsis Screen: Does the patient meet any 2 criteria? No. Patient's initial sepsis screen is negative. Does the patient have a suspected source of infection? No. Patient's initial sepsis screen is negative. Care prior to arrival: None. 13:02 Method Of Arrival: Ambulatory sg 13:02 Acuity: DEJUAN 3 sg Historical: - Allergies: 13:04 Iodine (Respiratory distress); sg - Home Meds: 15:26 Norvasc 10 mg Oral tab 1 tab once daily [Active]; sertraline 150 oral tab [Active]; la1 telmisartan oral oral [Active]; - PMHx: 13:04 Depression; High Cholesterol; Hypertension; sg - PSHx: 13:04 Vaginal Mesh; TURBT; Carpal Tunnel Repair; D \T\ C; Tubal ligation; sg - Immunization history:: Adult Immunizations up to date. - Social history:: Smoking status: Patient/guardian denies using tobacco. - Ebola Screening: : Patient negative for fever greater than or equal to 101.5 degrees Fahrenheit, and additional compatible Ebola Virus Disease symptoms Patient denies exposure to infectious person Patient denies travel to an Ebola-affected area in the 21 days before illness onset No symptoms or risks identified at this time. - Family history:: not pertinent. Screenin:59 Abuse screen: Denies threats or abuse. Nutritional screening: No deficits noted. la1 Tuberculosis screening: No symptoms or risk factors identified. Fall Risk None identified. Assessment: 13:30 Pain: Complains of pain in mid-sternal area Pain radiates to anterior aspect of left la1 upper chest and anterior aspect of right upper chest and left clavicle and right clavicle Pain currently is 4 out of 10 on a pain scale. Quality of pain is described as pressure, Pain began 2-3 days ago. Neuro: Level of Consciousness is awake, alert, obeys commands, Oriented to person, place, time, situation. Cardiovascular: Heart tones S1 S2 present Capillary refill < 3 seconds Patient's skin is warm and dry. Rhythm is sinus rhythm. Respiratory: Airway is patent Respiratory effort is even, unlabored, Respiratory pattern is regular, symmetrical, Breath sounds are clear bilaterally. GI: No signs and/or symptoms were reported involving the gastrointestinal system. : No signs and/or symptoms were reported regarding the genitourinary system. 13:58 General: Appears in no apparent distress. Behavior is calm, cooperative. la1 15:21 Reassessment: Patient appears in no apparent distress at this time. No changes from la1 previously documented assessment. Patient and/or family updated on plan of care and expected duration. Pain level reassessed. Patient is alert, oriented x 3, equal unlabored respirations, skin warm/dry/pink. Patient states symptoms have improved. Vital Signs: 13:04 BP 154 / 88; Pulse 98; Resp 17; Temp 98.2; Pulse Ox 96% on R/A; Pain 7/10; sg 13:52 Weight 108.86 kg; la1 13:58 BP 132 / 74; Pulse 79; Resp 18; Pulse Ox 98% on R/A; la1 15:21 BP 124 / 74; Pulse 80; Resp 18; Pulse Ox 98% on R/A; la1 16:04 BP 138 / 72; Pulse 71; Resp 18; Pulse Ox 97% on R/A; la1 ED Course: 12:41 Patient arrived in ED. mr 12:42 Edvin Perez MD is Private Physician. mr 12:49 Navneet Taylor MD is Attending Physician. ted 12:59 Rashi Alvarado, ABI is Primary Nurse. la1 13:02 Arm band placed on. sg 13:04 Triage completed. sg 13:23 X-ray completed. Portable x-ray completed in exam room. Patient tolerated procedure sg4 well. 13:25 XRAY Chest (1 view) In Process Unspecified. EDMS 13:57 Js Burch MD is Hospitalizing Provider. ted 13:59 Bed in low position. Call light in reach. Side rails up X 1. monitoring and evaluation advisor on. Pulse la1 ox on. NIBP on. 13:59 No provider procedures requiring assistance completed. Inserted saline lock: 22 gauge la1 in left forearm, using aseptic technique. Blood collected. Patient maintains SpO2 saturation greater than 95% on room air. 14:[address] kw1 16:22 Patient admitted, IV remains in place. la1 Administered Medications: 14:18 Drug: PlaVIX 300 mg Route: PO; la1 15:22 Follow up: Response: No adverse reaction la1 14:21 Drug: morphine 4 mg Route: IVP; Site: left forearm; la1 15:22 Follow up: Response: No adverse reaction; Pain is decreased la1 14:21 Drug: Zofran 4 mg Route: IVP; Site: left forearm; la1 15:22 Follow up: Response: No adverse reaction la1 14:22 Drug: Aspirin Chewable Tablet 324 mg Route: PO; la1 15:22 Follow up: Response: No adverse reaction la1 14:22 Drug: Lovenox 1 mg/kg Route: Sub-Q; Site: left upper abdomen; la1 15:22 Follow up: Response: No adverse reaction la1 14:22 Drug: Pepcid 20 mg Route: IVP; Site: left forearm; la1 15:22 Follow up: Response: No adverse reaction la1 15:17 Drug: Lopressor 25 mg Route: PO; la1 15:21 Follow up: Response: No adverse reaction la1 16:35 Drug: Bactrim (160 mg-800 mg (DS) 1 tablet Route: PO; la1 16:36 Follow up: Response: No adverse reaction la1 16:36 Drug: Clindamycin 900 mg Route: IVPB; Infused Over: 30 mins; Site: left antecubital; la1 16:36 Follow up: IV Status: Infusion continued upon admission la1 Outcome: 13:59 Decision to Hospitalize by Provider. ted 16:22 Admitted to Med/surg accompanied by tech, via wheelchair, room 211, with chart, Report la1 called to TJ 16:22 Condition: stable 16:22 Instructed on the need for admit. 16:53 Patient left the ED. la1 Signatures: Dispatcher [employer] EDMS Evert Null RN RN sg Anderson, Corey, MD MD cha Rivera, Mary mr Attema, ABI Markham RN, Kimberly kw1 Garcia, Susana sg4
--- NOTE | 2018-11-11 13:59 | EDPHYS ---
Physician Documentation [facility] Name: Kelley Ordaz Age: 48 yrs Sex: Female : 1970 Arrival Date: 11/11/2018 Time: 12:41 Bed 25 Private MD: Edvin Perez B ED Physician Navneet Taylor HPI: 11/11 13:51 This 48 yrs old Female presents to ER via Ambulatory with complaints of Chest ted Pain. 13:51 The patient or guardian reports chest pain that is located primarily in the substernal ted area. Onset: 2 day(s) ago. The pain radiates to both shoulders. Associated signs and symptoms: The patient has no apparent associated signs or symptoms. The chest pain is described as aching, a pressure. Modifying factors: The symptoms are alleviated by nothing. the symptoms are aggravated by nothing. Severity of pain: At its worst the pain was. The patient has not experienced similar symptoms in the past. Historical: - Allergies: 13:04 Iodine (Respiratory distress); sg - Home Meds: 15:26 Norvasc 10 mg Oral tab 1 tab once daily [Active]; sertraline 150 oral tab [Active]; la1 telmisartan oral oral [Active]; - PMHx: 13:04 Depression; High Cholesterol; Hypertension; sg - PSHx: 13:04 Vaginal Mesh; TURBT; Carpal Tunnel Repair; D \T\ C; Tubal ligation; sg - Immunization history:: Adult Immunizations up to date. - Social history:: Smoking status: Patient/guardian denies using tobacco. - Ebola Screening: : Patient negative for fever greater than or equal to 101.5 degrees Fahrenheit, and additional compatible Ebola Virus Disease symptoms Patient denies exposure to infectious person Patient denies travel to an Ebola-affected area in the 21 days before illness onset No symptoms or risks identified at this time. - Family history:: not pertinent. ROS: 13:51 Constitutional: Negative for fever, chills, and weight loss, Eyes: Negative for injury, ted pain, redness, and discharge, ENT: Negative for injury, pain, and discharge, Neck: Negative for injury, pain, and swelling, Respiratory: Negative for shortness of breath, cough, wheezing, and pleuritic chest pain, Abdomen/GI: Negative for abdominal pain, nausea, vomiting, diarrhea, and constipation, Back: Negative for injury and pain, : Negative for injury, bleeding, discharge, and swelling, MS/Extremity: Negative for injury and deformity, Skin: Negative for injury, rash, and discoloration, Neuro: Negative for headache, weakness, numbness, tingling, and seizure, Psych: Negative for depression, anxiety, suicide ideation, homicidal ideation, and hallucinations, Allergy/Immunology: Negative for hives, rash, and allergies, Endocrine: Negative for neck swelling, polydipsia, polyuria, polyphagia, and marked weight changes, Hematologic/Lymphatic: Negative for swollen nodes, abnormal bleeding, and unusual bruising. 13:51 Cardiovascular: Positive for chest pain, of the right clavicle, left clavicle, anterior aspect of right upper chest, anterior aspect of left upper chest and mid-sternal area. Exam: 13:51 Constitutional: This is a well developed, well nourished patient who is awake, alert, ted and in no acute distress. Head/Face: Normocephalic, atraumatic. Eyes: Pupils equal round and reactive to light, extra-ocular motions intact. Lids and lashes normal. Conjunctiva and sclera are non-icteric and not injected. Cornea within normal limits. Periorbital areas with no swelling, redness, or edema. ENT: Nares patent. No nasal discharge, no septal abnormalities noted. Tympanic membranes are normal and external auditory canals are clear. Oropharynx with no redness, swelling, or masses, exudates, or evidence of obstruction, uvula midline. Mucous membranes moist. Neck: Trachea midline, no thyromegaly or masses palpated, and no cervical lymphadenopathy. Supple, full range of motion without nuchal rigidity, or vertebral point tenderness. No Meningismus. Chest/axilla: Normal chest wall appearance and motion. Nontender with no deformity. No lesions are appreciated. Cardiovascular: Regular rate and rhythm with a normal S1 and S2. No gallops, murmurs, or rubs. Normal PMI, no JVD. No pulse deficits. Respiratory: Lungs have equal breath sounds bilaterally, clear to auscultation and percussion. No rales, rhonchi or wheezes noted. No increased work of breathing, no retractions or nasal flaring. Abdomen/GI: Soft, non-tender, with normal bowel sounds. No distension or tympany. No guarding or rebound. No evidence of tenderness throughout. Back: No spinal tenderness. No costovertebral tenderness. Full range of motion. Skin: Warm, dry with normal turgor. Normal color with no rashes, no lesions, and no evidence of cellulitis. MS/ Extremity: Pulses equal, no cyanosis. Neurovascular intact. Full, normal range of motion. Neuro: Awake and alert, GCS 15, oriented to person, place, time, and situation. Cranial nerves II-XII grossly intact. Motor strength 5/5 in all extremities. Sensory grossly intact. Cerebellar exam normal. Normal gait. Psych: Awake, alert, with orientation to person, place and time. Behavior, mood, and affect are within normal limits. 13:51 Musculoskeletal/extremity: ROM: no acute changes, intact in all extremities, Circulation is intact in all extremities. Sensation intact. Compartment Syndrome exam of affected extremity: is normal. DVT Exam: No signs of deep vein thrombosis. no pain, no swelling, no tenderness, negative Homans' sign noted on exam, no appreciated bluish discoloration, no erythema, no increased warmth. Vital Signs: 13:04 BP 154 / 88; Pulse 98; Resp 17; Temp 98.2; Pulse Ox 96% on R/A; Pain 7/10; sg 13:52 Weight 108.86 kg; la1 13:58 BP 132 / 74; Pulse 79; Resp 18; Pulse Ox 98% on R/A; la1 15:21 BP 124 / 74; Pulse 80; Resp 18; Pulse Ox 98% on R/A; la1 16:04 BP 138 / 72; Pulse 71; Resp 18; Pulse Ox 97% on R/A; la1 MDM: 12:50 Patient medically screened. [facility] 13:54 Data reviewed: vital signs, nurses notes, lab test result(s), EKG, radiologic studies, [facility] CT scan, plain films. 11/11 12:57 Order name: Basic Metabolic Panel; Complete Time: 13:54 [facility] 11/11 12:57 Order name: CBC with Diff; Complete Time: 13:54 [facility] 11/11 12:57 Order name: LFT's; Complete Time: 13:54 [facility] 11/11 12:57 Order name: Magnesium; Complete Time: 13:54 [facility] 11/11 12:57 Order name: NT PRO-BNP; Complete Time: 13:54 [facility] 11/11 12:57 Order name: PT-INR; Complete Time: 13:36 [facility] 11/11 12:57 Order name: Troponin (emerg Dept Use Only); Complete Time: 13:54 [facility] 11/11 12:57 Order name: XRAY Chest (1 view); Complete Time: 15:12 [facility] 11/11 12:57 Order name: Lipase; Complete Time: 13:55 [facility] 11/11 13:51 Order name: CT Chest Wo Con [facility] 11/11 13:51 Order name: D-Dimer [facility] 11/11 14:37 Order name: Urine Dipstick--Ancillary (enter results) tx 11/11 14:37 Order name: Urine --Ancillary (enter results) tx 11/11 16:25 Order name: Wound Culture [facility] 11/11 12:57 Order name: EKG; Complete Time: 12:58 [facility] 11/11 12:57 Order name: Cardiac monitoring; Complete Time: 14:22 [facility] 11/11 12:57 Order name: EKG - Nurse/Tech; Complete Time: 14:22 [facility] 11/11 12:57 Order name: IV Saline Lock; Complete Time: 14:22 [facility] 11/11 12:57 Order name: Labs collected and sent; Complete Time: 14:23 [facility] 11/11 12:57 Order name: O2 Per Protocol; Complete Time: 14:23 [facility] 11/11 14:48 Order name: CT; Complete Time: 15:12 EDCT 11/11 12:57 Order name: O2 Sat Monitoring; Complete Time: 14:23 [facility] 11/11 12:57 Order name: Urine Dipstick-Ancillary (obtain specimen); Complete Time: 14:35 [facility] 11/11 16:25 Order name: Wound dressing; Complete Time: 16:53 [facility] Administered Medications: 14:18 Drug: PlaVIX 300 mg Route: PO; la1 15:22 Follow up: Response: No adverse reaction la1 14:21 Drug: morphine 4 mg Route: IVP; Site: left forearm; la1 15:22 Follow up: Response: No adverse reaction; Pain is decreased la1 14:21 Drug: Zofran 4 mg Route: IVP; Site: left forearm; la1 15:22 Follow up: Response: No adverse reaction la1 14:22 Drug: Aspirin Chewable Tablet 324 mg Route: PO; la1 15:22 Follow up: Response: No adverse reaction la1 14:22 Drug: Lovenox 1 mg/kg Route: Sub-Q; Site: left upper abdomen; la1 15:22 Follow up: Response: No adverse reaction la1 14:22 Drug: Pepcid 20 mg Route: IVP; Site: left forearm; la1 15:22 Follow up: Response: No adverse reaction la1 15:17 Drug: Lopressor 25 mg Route: PO; la1 15:21 Follow up: Response: No adverse reaction la1 16:35 Drug: Bactrim (160 mg-800 mg (DS) 1 tablet Route: PO; la1 16:36 Follow up: Response: No adverse reaction la1 16:36 Drug: Clindamycin 900 mg Route: IVPB; Infused Over: 30 mins; Site: left antecubital; la1 16:36 Follow up: IV Status: Infusion continued upon admission la1 Disposition: 11/11/18 13:59 Hospitalization ordered by Js Burch for Observation. Preliminary diagnosis are Other chest pain, Dyspnea, Essential (primary) hypertension. - Bed requested for Telemetry/MedSurg (observation). - Status is Observation. la1 - Condition is Fair. - Problem is new. - Symptoms have improved. UTI on Admission? No Signatures: Dispatcher [employer] EDEvert Stone RN RN Navneet Long MD MD cha Attema, Lee, RN RN laAn aLilia Villar RN RN df Corrections: (The following items were deleted from the chart) 14:55 13:59 Hospitalization Ordered by Js Burch MD for Observation. Preliminary diagnosis df is Other chest pain; Dyspnea; Essential (primary) hypertension. Bed requested for Telemetry/MedSurg (observation). Status is Observation. Condition is Fair. Problem is new. Symptoms have improved. UTI on Admission? No. ted 16:53 14:55 11/11/2018 13:59 Hospitalization Ordered by Js Burch MD for Observation. la1 Preliminary diagnosis is Other chest pain; Dyspnea; Essential (primary) hypertension. Bed requested for Telemetry/MedSurg (observation). Status is Observation. Condition is Fair. Problem is new. Symptoms have improved. UTI on Admission? No. df
[2018-11-11] MEDS ORDERED: ASPIRIN 81 MG CHEWABLE TABLET ONE (14:17)
[2018-11-11] MEDS ORDERED: MORPHINE 4 MG/ML SYR ONE (14:18)
[2018-11-11] MEDS ORDERED: CLOPIDOGREL 75 MG TABLET ONE (14:18)
[2018-11-11] MEDS ORDERED: ONDANSETRON 4 MG/2 ML VIAL ONE (14:18)
[2018-11-11] MEDS ORDERED: ENOXAPARIN 100 MG/ML SYR SQ ONE (14:18)
[2018-11-11] MEDS ORDERED: FAMOTIDINE 20 MG/2 ML VIAL IV ONE (14:19)
[2018-11-11] MEDS ORDERED: NA CHLORIDE 0.9% 1,000 ML ONE (14:20)
--- NOTE | 2018-11-11 14:47 | RAD REPORT ---
EXAM DESCRIPTION: CT - Thorax Wo Con - 11/11/2018 2:37 pm CLINICAL HISTORY: Chest pain, shortness of breath COMPARISON: Films same date TECHNIQUE: Axial 5 mm thick images of the chest were obtained without IV contrast. All CT scans are performed using dose optimization technique as appropriate and may include automated exposure control or mA/KV adjustment according to patient size. FINDINGS: No mass or infiltrate in the lung parenchyma. No pleural thickening or pleural effusion. N o pneumothorax. A few small nonspecific mediastinal lymph nodes are present. These are not regarded as suspicious. Co ronary artery calcifications are present. No pericardial thickening or effusion. No gross aortic or p ulmonary artery finding suspected. Assessment is limited in the absence of IV contrast. No chest wall mass or abnormal axillary lymphadenopathy. Disc and bony degenerative changes are present. Limited imaging of the upper abdomen shows mild diffu se fatty infiltration of the liver. IMPRESSION: No mass, infiltrate or other emergent CT chest finding. Coronary artery calcifications without cardiomegaly or pericardial effusion. Fatty infiltration of the liver.
[2018-11-11] MEDS ORDERED: METOPROLOL TAR 25 MG TAB ONE (15:28)
[2018-11-11] MEDS ORDERED: CLINDAMYCIN 900MG/D5W 900 MG/50 ML IVPB IV ONE (16:39)
[2018-11-11] MEDS ORDERED: SMZ./TMP. 800/160 MG TABLET ONE (16:43)
[2018-11-11] MEDS ORDERED: NITROGLYCERIN 0.4 MG/TAB SL PRN (17:02)
[2018-11-11] MEDS ORDERED: MORPHINE 2 MG/ML SYR IV PRN (17:02)
[2018-11-11 17:18] VITALS: BMI 39.5
[2018-11-11] MEDS ORDERED: INFLUENZA VACCINE (for 3y+) 0.5 ML DOSE IMVAC ONE (18:00)
--- NOTE | 2018-11-11 18:29 | EKG ---
Test Date: 2018-11-11 Test Time: 13:09:38 Pharmacy Billing Adjudicator: LA MEASUREMENT RESULTS: Intervals: Rate: 85 MD: 124 QRSD: 74 QT: 390 QTc: 464 [place]: P: 7 MD: 124 QRS: 0 T: 33 INTERPRETIVE STATEMENTS: Normal sinus rhythm Prolonged QT Abnormal ECG Compared to ECG 01/14/2017 10:15:14 Prolonged QT interval now present T-wave abnormality no longer present Electronically Signed On 11-11-18 18:29:30 PRODUCTION HARDENER by Amaury Fabian
[2018-11-11] MEDS: ACETAMINOPHEN 500 MG TAB PO PRN (18:30)
[2018-11-11 18:38] LABS: Troponin I 0.11 ng/mL (0.0-0.045)
[2018-11-11 20:30] LABS: Urine Blood NEGATIVE (NEG); Urine Glucose NEGATIVE (NEG); Urine Protein NEGATIVE (NEG); Urine Specific Gravity 1.025 (1.005-1.030); Urine pH 5.5 (5.0-7.0)
[2018-11-11] MEDS: ATORVASTATIN 80 MG TAB PO SCH (21:07)
[2018-11-11] MEDS: METOPROLOL TAR 25 MG TAB PO SCH (21:07)
--- NOTE | 2018-11-12 01:46 | HP ---
Date of Admission: 11/11/2018 Chief Complaint: Chest pain. Consultants: Dr. Fabian with Cardiology. History Of Present Illness: The patient is a 48-year-old female with past medical history of hyperte nsion, hyperlipidemia, obesity, and history of gestational diabetes, who has had a previous history o f heart catheterization 4 years ago, which was normal, comes in with chest pain. Chest pain started 3 days prior to admission. It was substernal, radiating to her neck and head, also causing some head ache. The patient describes nausea, but no vomiting, diaphoresis, or palpitations. No significant s hortness of breath. The patient's symptoms are constant, moderate, and progressively worsening. She came into the ER for further evaluation. In the ER, her workup showed an elevated troponin level of 0.1. Her EKG did not show any changes. Imaging studies including CT scan of the chest was negative , did show some fatty liver infiltration. The patient was then referred for admission. When seen in the ER, she was awake, alert, and oriented x3, stating that her chest pain had improved. Past Medical History: Hypertension, hyperlipidemia, major depressive disorder, and gestational diabe madai. Past Surgical History: Carpal tunnel repair, tubal ligation, and mesh liner. Allergies: NO KNOWN DRUG ALLERGIES. Medications: List reviewed. Social History: The patient denies any alcohol use. Does smoke 1 pack per day for 30 years. No ill icit drug use. The patient has 1 son who lives at home, is independent in her activities of daily li ving. Family History: Father has Alzheimer's disease and aneurysm. Mother had hypertension, breast cancer , and colon cancer. Review of Systems: An 11-point system reviewed, negative except as per HPI. Physical Examination: Vital Signs: Blood pressure 154/88, pulse 98, respirations 17, temperature 98.2, and O2 96% on room air. General: Awake, alert, and oriented x3, ill-appearing, obese female. HEENT: Normocephalic, atraumatic. PERRLA. EOMI. Moist mucous membranes. Oropharynx is clear. No rmal dentition. Conjunctivae are anicteric. Neck: Supple. No JVD. Trachea midline. CV: S1, S2. Regular rate and rhythm. Peripheral pulses present. No murmurs, gallops, or rubs. Respiratory: Clear to auscultation bilaterally. No wheezing or stridor. No use of accessory muscle s. Gastrointestinal: Abdomen is soft, nontender, and nondistended. Positive bowel sounds. No guarding or rigidity. Extremities: No clubbing, cyanosis, or edema. No calf tenderness. Neuro: Cranial nerves 2-12 intact grossly. No focal neurological deficits. Speech is normal. Stre ngth is 5/5 in bilateral upper and lower extremities. Sensation intact to light touch. Skin: No rashes. Normal skin turgor. Psych: Mood is okay. Affect is flat. Insight and judgment are fair. Laboratory Data: WBC 10.2, H and H 15.3 and 42.9, platelets 265, and neutrophils 65%. INR 1.04. D- dimer is pending. Sodium 139, potassium 3.5, chloride 106, CO2 26, BUN 13, creatinine 0.84, glucose 144, calcium 8.6, and magnesium 2.1. Troponin 0.1, albumin 3.6, and lipase 124. UA is pending. Imaging Studies: Chest x-ray shows shallow inspiration chest film without acute cardiopulmonary find ing. No significant change from previous. CT scan of the chest shows no mass, infiltrate, or other urgent CT chest finding. Coronary artery calcification without cardiomegaly or pericardial effusion. Fatty infiltration of the liver. EKG showed sinus bradycardia, no acute ST elevation. Assessment And Plan: A 48-year-old female with: 1.Zva-TE-bahikcjnx myocardial infarction. We will start her on chest pain guidelines. We will star t her on blood thinners with Lovenox 1 mg/kg q.[address] Fabian with Cardiology recommended that the patient will likely need cardiac catheterization. 2.Essential hypertension, stable. We will resume home medications. 3.Dyslipidemia. We will check lipid panel. Start her on statin. 4.Major depressive disorder, on SSRI. 5.Obesity. 6.Nicotine dependence with cigarette smoking. Counseled. 7.Deep vein thrombosis prophylaxis, Lovenox. Admit the patient to Med-Surg, place as inpatient with remote cardiac telemetry. Length of stay, gre ater than 2 midnights. DERRELL Voice ID: [id number]
[2018-11-12] MEDS ORDERED: ENOXAPARIN 100 MG/ML SYR SQ SCH (05:00)
[2018-11-12 06:26] LABS: Potassium 3.9 mmol/L (3.5-5.1)
[2018-11-12 06:36] LABS: Absolute Lymphocytes (CBC) 2.6 K/uL (0.7-4.9); Absolute Monocytes 0.9 K/uL (0.1-1.3); Absolute Neutrophil 5.6 K/uL (1.8-8.0); Basophils % 0.5 % (0-1.3); Eosinophils % 3.3 % (0-4.4); Hematocrit 40.7 % (36.0-45.0); Lymphocytes % 27.8 % (15.3-44.8); MPV 9.1 fL (7.6-11.3); Monocytes % 9.4 % (3.3-12.3); RBC Red Blood Cell Count 4.55 M/uL (3.86-4.86)
[2018-11-12] MEDS: METOPROLOL TAR 25 MG TAB PO SCH ×2 (08:26→21:08)
[2018-11-12] MEDS: SERTRALINE HCL 100 MG TAB PO SCH (08:26)
[2018-11-12] MEDS: LOSARTAN POTASSIUM 50 MG TABLET PO SCH (08:26)
[2018-11-12] MEDS: ASPIRIN EC 81 MG TAB PO SCH (08:26)
[2018-11-12] MEDS: DIPHENHYDRAMINE 50 MG/ML VIAL IV PRN (11:22)
[2018-11-12] MEDS: ACETAMINOPHEN 500 MG TAB PO PRN ×2 (11:23→17:06)
--- NOTE | 2018-11-12 11:39 | CON ---
History Of Present Illness: Ms. Ordaz came to the hospital because of chest pain. She has had a lo t of spells of heart pounding, heart racing, and she had a spell of chest pain that started with a he adache and then later became diffuse pain across her chest, lasted for several minutes, resolved. Jignesh perdomo has had several spells of chest pains being in the hospital. There is nothing on telemetry to [facility] it is atrial fibrillation or any other arrhythmia. Her electrocardiogram shows sinus rhythm. El ectrocardiogram shows sinus rhythm. There is no infarction injury or ischemia. There is nonspecific T-wave flattening. Her troponins are elevated. All of them are just about the same and they are al l about 0.15. She has had a CT scan of the chest and chest x-ray that are unremarkable. In 2016, jignesh perdomo had a similar presentation. We did a cardiac cath and her coronary arteries were completely normal . She is a regular cigarette smoker. She says she is trying to quit, certainly wants to quit. Outpatient Medications: Telmisartan, sertraline, amlodipine. She reports a drug intolerance to iodine. Physical Examination: General: She is alert, oriented, pleasant, 5 feet 6 inches, weight 245 pounds, obese. No carotid br uit. Lungs: Clear. Cardiac exam: Within normal limits. Abdomen: Soft. Extremities: Normal. Impression: The patient probably has CAD causing elevated troponins and chest pain. We will do a ca rdiac cath and see if there is anything to do other than medical therapy. JIGNESH/JACKELINE Voice ID: [id number] Report ID: [id number]
--- NOTE | 2018-11-12 17:51 | PN ---
Date of Progress Note: 11/12/2018 Subjective: The patient is seen and examined. Chart reviewed, and case discussed with RN and Dr. Manpreet villafuerte. The patient states her pain has improved. Medications: List reviewed. Physical Examination: Vital Signs: Temperature 97.3, heart rate 75, blood pressure 116/58, respirations 18, O2 of 95% on r oom air. General: Awake, alert, oriented x3. A morbidly obese female, in some mild distress. CV: S1, S2. Regular rate and rhythm. Peripheral pulses present. Respiratory: Moving air well bilaterally. No wheezing or stridor. Gastrointestinal: Abdomen is soft, nontender, nondistended. Positive bowel sounds. Extremities: No clubbing, cyanosis, or edema. Neurologic: Nonfocal. Laboratory Data: Sodium 140, potassium 3.9, chloride 105, CO2 of 27, BUN 14, creatinine 0.78, glucos e 107, calcium 8.2. Troponin 0.10, 0.11, and 0.12. Triglycerides 385, cholesterol 247, LDL 142, HDL 28. WBC 9.4, H and H 14 and 40.7, platelets 227. Assessment: A 48-year-old female with: 1.Tli-CM-thbbtkpcq myocardial infarction. Continue chest pain guidelines. Appreciate Dr. Fabian' i nput. Cardiac catheterization on Tuesday. 2.Essential hypertension, stable. 3.Dyslipidemia, uncontrolled. We will continue high-dose statin. 4.Hyperglycemia without diagnosis of diabetes. We will check hemoglobin A1c. 5.Obesity, BMI 39.5. 6.Major depressive disorder. Continue SSRI. 7.Nicotine dependence with cigarette smoking. Counseled. 8.Deep venous thrombosis prophylaxis with Lovenox. Plan: As above. /JACKELINE Voice ID: [id number] Report ID: [id number]
[2018-11-12] MEDS ORDERED: predniSONE 20 MG TAB PO ONE (20:00)
[2018-11-12] MEDS: ATORVASTATIN 80 MG TAB PO SCH (21:08)
[2018-11-13] MEDS: METOPROLOL TAR 25 MG TAB PO SCH ×2 (09:05→21:21)
[2018-11-13] MEDS: ASPIRIN EC 81 MG TAB PO SCH (09:05)
[2018-11-13] MEDS: LOSARTAN POTASSIUM 50 MG TABLET PO SCH (09:05)
[2018-11-13] MEDS: SERTRALINE HCL 100 MG TAB PO SCH (09:05)
--- NOTE | 2018-11-13 11:13 | ECHO ---
HEIGHT: 5 ft 6 in WEIGHT: 245 lb 0 oz DATE OF STUDY: 11/13/[address]: Js Burch MD 2-DIMENSIONAL: YES M.MODE: YES DOPPLER: YES COLOR FLOW: YES TDS: NO PORTABLE: NO DEFINITY: NO BUBBLE STUDY: NO DIAGNOSIS: MYOCARDIAL INFARCTION CARDIAC HISTORY: CATHERIZATION: YES SURGERY: NO PROSTHETIC VALVE: NO PACEMAKER: NO MEASUREMENTS (cm) DIASTOLIC (NORMALS) SYSTOLIC (NORMALS) IVSd 1.0 (0.6-1.2) LA Diam 4.0 (1.9-4.0) LVEF 68% LVIDd 4.7 (3.5-5.7) LVIDs 2.9 (2.0-3.5) %FS 38% LVPWd 1.2 (0.6-1.2) Ao Diam 2.6 (2.0-3.7) 2 DIMENSIONAL ASSESSMENT: RIGHT ATRIUM: NORMAL LEFT ATRIUM: NORMAL RIGHT VENTRICLE: NORMAL LEFT VENTRICLE: NORMAL TRICUSPID VALVE: NORMAL MITRAL VALVE: NORMAL PULMONIC VALVE: NORMAL AORTIC VALVE: NORMAL PERICARDIAL EFFUSION: NONE AORTIC ROOT: NORMAL LEFT VENTRICULAR WALL MOTION: NORMAL DOPPLER/COLOR FLOW: MILD MITRAL AND TRICUSPID REGURGITATION. NORMAL RIGHT VENTRICULAR SYSTOIC PRESSURE. COMMENTS: NORMAL 2D ECHOCARDIOGRAM ECHOCARDIOGRAM. MILD MITRAL AND TRICUSPID REGURGITATION. TECHNOLOGIST: Latrice WIN
[2018-11-13] MEDS ORDERED: HEPA 1000U/500MLS 1,000 UNIT/500 ML BAG IV ONE ×2 (11:18→11:41)
[2018-11-13] MEDS ORDERED: NA CHLORIDE 0.9% 500 ML ONE (11:18)
[2018-11-13] MEDS ORDERED: MIDAZOLAM HCL 2 MG/2 ML INJ ONE ×2 (11:28→11:41)
[2018-11-13] MEDS ORDERED: HEPARIN 5000 UNIT/ML 1 ML VIAL ONE (11:28)
[2018-11-13] MEDS ORDERED: METHYLPREDNISOLONE 125 MG INJ ONE (11:28)
[2018-11-13] MEDS ORDERED: NITROGLYCERIN 100 MCG/ML SYR (for cath lab use only) IV ONE (11:29)
[2018-11-13] MEDS ORDERED: NICARDIPINE HCL 25 MG/10 ML IV ONE (11:29)
[2018-11-13] MEDS ORDERED: NA CHLORIDE 0.9% 50 ML ONE (11:29)
[2018-11-13] MEDS ORDERED: ATROPINE SULF 1 MG/10 ML SYR IV ONE (11:29)
[2018-11-13] MEDS ORDERED: FENTANYL CITR 100 MCG/2 ML ONE ×2 (11:29→12:05)
[2018-11-13] MEDS ORDERED: NA CHLORIDE 0.9% 100 ML IV ONE (12:08)
[2018-11-13] MEDS ORDERED: DIPHENHYDRAMINE 50 MG/ML VIAL ONE (12:18)
[2018-11-13] MEDS ORDERED: PRASUGREL (EFFIENT) 10 MG TAB ONE (12:47)
[2018-11-13] MEDS: AMLODIPINE 5 MG TAB PO SCH (13:58)
--- NOTE | 2018-11-13 14:20 | PN ---
Date of Progress Note: 11/13/2018 Subjective: The patient is seen and examined. Chart reviewed and case discussed with RN and Dr. Florentin long. The patient went for cardiac catheterization today with the stent, with multiple stent placemen ts in the RCA. Medications: List reviewed. Physical Examination: Vital Signs: Temperature 97.7, heart rate 73, blood pressure 135/81, respirations 16, and O2 of 97% on room air. General: Awake, alert, and oriented x3, not in any acute distress, obese female. CV: S1 and S2. Regular rate and rhythm. Peripheral pulses present. Respiratory: Moving air well bilaterally. No wheezing or stridor. Gastrointestinal: Abdomen is soft, nontender, and nondistended. Positive bowel sounds. Extremities: No clubbing, cyanosis, or edema. Neurologic: Nonfocal. Laboratory Data: Sodium 140, potassium 3.9, chloride 105, CO2 of 27, BUN 14, creatinine 0.78, glucos e 107, and calcium 8.2, lab values from 11/12/2018. Echocardiogram shows EF of 68%, mild mitral and tricuspid regurgitation. Assessment: A 48-year-old female with, 1.Gou-TO-mbgazkrli myocardial infarction, status post cardiac catheterization with stent in the righ t coronary artery x3. We will continue with antiplatelet therapy and chest pain guidelines. I appre ciate Dr. Fabian' input. 2.Essential hypertension, stable. 3.Dyslipidemia. Continue high-dose statin. 4.Hyperglycemia without diagnosis of diabetes. Hemoglobin A1c is still pending. 5.Obesity, BMI of 39.5. 6.Major depressive disorder. We will continue SSRI. 7.Nicotine dependence with cigarette smoking, counseled. 8.Deep venous thrombosis prophylaxis with SCDs. SA/MODL Voice ID: [id number] Report ID: [id number]
[2018-11-13] MEDS: ATORVASTATIN 80 MG TAB PO SCH (21:21)
[2018-11-13] MEDS: DIPHENHYDRAMINE 50 MG/ML VIAL IV PRN (21:23)
[2018-11-13 22:09] VITALS: O2SAT 95
--- NOTE | 2018-11-13 22:35 | OP ---
Surgeon: Amaury Fabian MD Procedures: Left heart catheterization, coronary left ventricular angiography, and percutaneous braden nary intervention of 3 separate lesions in the right coronary artery; 99, 90, and a 70. All were suc cessful. Procedure Findings: The patient has diffuse CAD. There is mild disease in the LAD and circumflex. The right coronary is diffusely torturous and diffusely plaqued. Three separate 90% lesions. A coup le of other 50% lesions were noted. Procedure In Detail: The patient was brought to the cardiac catheterization lab in a fasting state, sedated with Versed and fentanyl, and prepared and draped in usual sterile fashion. Right radial glynn rooney was used. Right radial artery was entered using a 21-gauge needle after anesthetizing it with 1% lidocaine. A 6-Greek sheath was placed after cannulating it with a 0.830-wqpr-aqltwnhh guidewire . We used a TIG catheter to angiogram right coronary, left coronary, and left ventricle. We then pl aced an exchange-length J-wire. We gave Angiomax and documented an activated clotting time greater t morales 400 seconds. We used an Wattvision right guide catheter with side holes, guided to the right coronary ostium using fluoroscopy. We crossed all the lesions using a [place] wire. We pre-dilated the lesio ns with a 2.25 x 15 Emerge balloon. We then used a 2.5 x 8 Emerge noncompliant balloon to dilate one of the lesions up to 18 atmospheres that would not dilate it; 14, it dilated. We then succeeded in placing three different stents, two in the mid right coronary, one in the proximal right coronary. A ll stents were 2.5 x 12 Synergy stents, inflated to 14 atmospheres. The angiographic result was exce llent. Complications From The Procedure: None. Estimated Blood Loss: 150 cc. JIGNESH/JACKELINE Voice ID: [id number] Report ID: [id number]
[2018-11-14 06:29] LABS: Potassium 4.1 mmol/L (3.5-5.1)
[2018-11-14 06:33] LABS: Hematocrit 42.3 % (36.0-45.0); MPV 9.6 fL (7.6-11.3); RBC Red Blood Cell Count 4.75 M/uL (3.86-4.86)
[2018-11-14] MEDS: ASPIRIN EC 81 MG TAB PO SCH (08:21)
[2018-11-14] MEDS: AMLODIPINE 5 MG TAB PO SCH (08:22)
[2018-11-14] MEDS: METOPROLOL TAR 25 MG TAB PO SCH (08:22)
[2018-11-14] MEDS: SERTRALINE HCL 100 MG TAB PO SCH (08:22)
[2018-11-14] MEDS ORDERED: CLOPIDOGREL 75 MG TABLET PO SCH (09:00)
[2018-11-14] MEDS ORDERED: VALSARTAN 80 MG TAB PO SCH (09:00)
[2018-11-14 10:31] LABS: Absolute Lymphocytes (CBC) 3.2 K/uL (0.7-4.9); Absolute Monocytes 1.4 K/uL (0.1-1.3); Absolute Neutrophil 13.8 K/uL (1.8-8.0); Basophils % 0.3 % (0-1.3); Eosinophils % 0.2 % (0-4.4); Hematocrit 42.9 % (36.0-45.0); Lymphocytes % 17.1 % (15.3-44.8); MPV 9.3 fL (7.6-11.3); Monocytes % 7.8 % (3.3-12.3)
[2018-11-14 14:30] VITALS: BP 132/76; TEMP 97.3
--- NOTE | 2018-11-15 07:15 | PN ---
Date of Progress Note: 11/14/2018 Ms. Ordaz is a 48-year-old white woman who had an RCA stent by Dr. Fabian on 11/13/2018. Overnight, she did very well. She has no hematoma at the insertion site with the catheter, had good pulses. N o chest pain overnight. No telemetry issues overnight. The patient sees Dr. Edvin Perez as an out patient. I recommend she goes home today on aspirin, Plavix, beta-julius, and a statin. The case w as discussed with Dr. Burch. She will see us in the office in the near future. JL/JACKELINE Voice ID: [id number] Report ID: [id number]
--- NOTE | 2018-11-16 18:32 | P.DS ---
Admission Date: 11/11/18 Discharge Date: 11/16/18 Disposition: ROUTINE DISCHARGE Discharge Condition: GOOD Reason for Admission: Chest pain Consultations: Cardiology, Dr. Fabian Brief History of Present Illness: : The patient is a 48-year-old female with past medical history of hypertension , hyperlipidemia, obesity, and history of gestational diabetes, who has had a previous history of heart catheterization 4 years ago, which was normal, comes in with chest pain. Chest pain started 3 days prior to admission. It was substernal, radiating to her neck and head, also causing some headache. The patient describes nausea, but no vomiting, diaphoresis, or palpitations. No significant shortness of breath. The patient's symptoms are constant, moderate , and progressively worsening. She came into the ER for further evaluation. In the ER, her workup showed an elevated troponin level of 0.1. Her EKG did not show any changes. Imaging studies including CT scan of the chest was negative, did show some fatty liver infiltration. The patient was then referred for admission. When seen in the ER, she was awake, alert, and oriented x3, stating that her chest pain had improved. Hospital Course: Patient was admitted for chest pain. She was started on Lovenox 1 milligram/ kilogram q.12 hr, cardiology was consulted and she was started on chest pain guidelines. Per cardiology recommendations, patient underwent cardiac catheterization with stent placement in the right coronary artery x3. She was continued on antiplatelet therapy and chest pain guidelines. She otherwise remained stable throughout the stay. Her hemoglobin A1c was 6.0. Prior to discharge, her WBC count was elevated, likely related to steroids that she was seen she was hemodynamically stable, afebrile, no other evidence of infection. Prior to discharge, she was symptom-free, alert oriented x3, hemodynamically stable. She was discharged home in a stable manner with callusing on smoking cessation and other lifestyle modifications. Vital Signs/Physical Exam: Temp Pulse Resp BP Pulse Ox 97.3 F 65 16 132/76 97 11/14/18 12:00 11/14/18 12:00 11/14/18 12:00 11/14/18 12:11/14/18 12:00 General: Alert, In no apparent distress, Oriented x3 HEENT: Atraumatic, PERRLA, EOMI Neck: Supple, JVD not distended Respiratory: Clear to auscultation bilaterally, Normal air movement Cardiovascular: Regular rate/rhythm, Normal S1 S2 Gastrointestinal: Normal bowel sounds, No tenderness Musculoskeletal: No tenderness Integumentary: No rashes Neurological: Normal speech, Normal tone, Normal affect Lymphatics: No axilla or inguinal lymphadenopathy Laboratory Data at Discharge: WBC 18.5 K/uL (4.3-10.9) H 11/14/18 10:11 Hgb 14.7 g/dL (12.0-15.0) 11/14/18 10:11 Hct 42.9 % (36.0-45.0) 11/14/18 10:11 Plt Count 279 K/uL (152-406) 11/14/18 10:11 PT 12.2 SECONDS (9.5-12.5) 11/11/18 13:20 INR 1.04 11/11/18 13:20 Sodium 141 mmol/L (136-145) 11/14/18 05:27 Potassium 4.1 mmol/L (3.5-5.1) 11/14/18 05:27 BUN 15 mg/dL (7-18) 11/14/18 05:27 Creatinine 0.79 mg/dL (0.55-1.3) 11/14/18 05:27 Glucose 141 mg/dL (74-106) H 11/14/18 05:27 Magnesium 2.1 mg/dL (1.8-2.4) 11/11/18 13:20 Total Bilirubin 0.4 mg/dL (0.2-1.0) 11/11/18 13:20 AST 18 U/L (15-37) 11/11/18 13:20 ALT 29 U/L (12-78) 11/11/18 13:20 Alkaline Phosphatase 77 U/L (45-117) 11/11/18 13:20 Troponin I 0.12 ng/mL (0.0-0.045) H 11/11/18 21:07 Triglycerides 385 mg/dL (<150) H 11/11/18 17:54 Cholesterol 247 mg/dL (<200) H 11/11/18 17:54 HDL Cholesterol 28 mg/dL (40-60) L 11/11/18 17:54 Cholesterol/HDL Ratio 8.82 11/11/18 17:54 Lipase 124 U/L (73-393) 11/11/18 13:20 Home Medications: Sertraline HCl 150 mg PO DAILY 12/19/16 Telmisartan 80 mg PO DAILY 12/19/16 Amlodipine [Norvasc*] 10 mg PO DAILY 02/22/18 Amlodipine [Norvasc*] 5 mg PO DAILY #30 tab 11/14/18 Atorvastatin Calcium [Lipitor] 80 mg PO BEDTIME #30 tab 11/14/18 Clopidogrel Bisulfate [Plavix*] 75 mg PO DAILY #30 tablet 11/14/18 Metoprolol Tartrate [Lopressor*] 25 mg PO BID #60 tab 11/14/18 Nitroglycerin [Nitrostat*] 0.4 mg SL UD PRN #1 bottle 11/14/18 Sertraline [Zoloft*] 150 mg PO DAILY tab 11/14/18 New Medications: Amlodipine [Norvasc*] 5 mg PO DAILY #30 tab Atorvastatin Calcium [Lipitor] 80 mg PO BEDTIME #30 tab Clopidogrel Bisulfate [Plavix*] 75 mg PO DAILY #30 tablet Metoprolol Tartrate [Lopressor*] 25 mg PO BID #60 tab Nitroglycerin [Nitrostat*] 0.4 mg SL UD PRN #1 bottle PRN Reason: Pain Scale 2-4 (Mild) Patient Discharge Instructions: Please follow up with the primary care physician 1 week. Please follow up with cardiology in 2 weeks. Information provided to you. Please return to the emergency room for worsening symptoms. Diet: AHA Activity: Ad rena Followup: Rasheed Romero MD [ACTIVE - CAN ADMIT] - 1-2 Weeks Time spent managing pt's care (in minutes): 55
== END 2018-11-14 15:15 | disposition home or self-care (01) | DRG 247 ==
LOC: ER 12:39 → ERHOLD 14:20 → 2ND 16:22
PROVIDERS: ADMIT Family Medicine; ATTEND Family Medicine
PROC: 027036Z Dilation of Coronary Artery, One Artery with Three Drug-eluting Intraluminal Devices, Percutaneous Approach (ICD-10-PCS; principal; 2018-11-13)
PROC: 4A023N7 Measurement of Cardiac Sampling and Pressure, Left Heart, Percutaneous Approach (ICD-10-PCS; 2018-11-13)
PROC: B2111ZZ Fluoroscopy of Multiple Coronary Arteries using Low Osmolar Contrast (ICD-10-PCS; 2018-11-13)
DX: I21.4 Non-ST elevation (NSTEMI) myocardial infarction (principal); I25.10 Atherosclerotic heart disease of native coronary artery without angina pectoris; I10 Essential (primary) hypertension; E78.5 Hyperlipidemia, unspecified; R73.9 Hyperglycemia, unspecified; K76.0 Fatty (change of) liver, not elsewhere classified; F32.9 Major depressive disorder, single episode, unspecified; F17.210 Nicotine dependence, cigarettes, uncomplicated; Z79.899 Other long term (current) drug therapy; E66.01 Morbid (severe) obesity due to excess calories; Z68.39 Body mass index [BMI] 39.0-39.9, adult; Z86.32 Personal history of gestational diabetes; I34.0 Nonrheumatic mitral (valve) insufficiency; I36.1 Nonrheumatic tricuspid (valve) insufficiency
CPT/HCPCS: 36415; 71045; 71250; 80048; 80061; 80076; 81003; 81025; 83036; 83690; 83735; 83880; 84484; 85025; 85027; 85347; 85379; 85610; 87070; 87205; 92928; 93005; 93306; 93458; 94760; 96372; 99285; C1725; C1893; G0008; J0583; J1644; J1650; J2250; J2270; J2405; J2930; J3010; J7030; J7512; Q2035

== ENCOUNTER 2019-04-07 23:35 | Emergency (ER) | payer OTHER ==
--- OUTSIDE RECORDS SUMMARY | 2019-04-07 23:38 | XMS REPORT | Clinical Summary ---
:1970 Author Organization [facility] Address [address] [place] [address] Care Team Providers Name Role Phone Robert [...] once daily. Active Problems Not on file Family History Medical History Relation Name Comments [...] travel history available. Last Filed Vital Signs Not on file Plan of Treatment Health Maintenance Due Date Last Done Comments BREAST CANCER SCREENING 2018 COLONOSCOPY SCREENING 2018 SHINGLES VACCINES (#1) 2018 INFLUENZA VACCINE 04/19/2019 Results Not on fileafter 04/06/2018 Advance Directives Patient has advance care planning documents on file. For more information, please contact:[place] [address]
--- OUTSIDE RECORDS SUMMARY | 2019-04-07 23:39 | XMS REPORT | Continuity of Care Document ---
:1970 Author Organization [facility] Care Team Providers Name Role Phone MD Ureil, Samson Unavailable Unavailable Insurance Providers Payer name Policy type / Coverage type Policy ID Covered alliance party ID Policy Simmons AETNA AETNA Encounters Encounter Performer Location Date Office Visit Samson Trevino MD [facility] Aug 23, 2014 Problems Problem Effective Dates Problem Status HYPERTENSION January 17, 2014 Active DYSLIPIDEMIA January 17, 2014 Active ANXIETY DEPRESSION January 17, 2014 Active OBESITY January 17, 2014 Active PHYSICAL EXAMINATION January 17, 2014 Active RHINITIS Mar 29, 2014 Inactive UTI Mar 29, 2014 Inactive POLYDIPSIA May 10, 2014 Active TMJ SYNDROME Aug 23, 2014 Active MEDIAL MENISCUS TEAR, LEFT Aug 23, 2014 Active Procedures Date Description Comments January 17, 2014 smoking status current every day smoker Feb 17, 2013 vaginal Pap smear results Complete January 17, 2014 smoking/tobacco cessation, patient education DONE and counseling Apr 19, 2013 mammogram Complete Mar 29, 2014 smoking status Current every day smoker Mar 29, 2014 smoking/tobacco cessation, patient education yes and counseling May 10, 2014 smoking status Current every day smoker May 10, 2014 smoking/tobacco cessation, patient education yes and counseling Aug 23, 2014 smoking status Current every day smoker Aug 23, 2014 smoking/tobacco cessation, patient education yes and counseling Medications Medication Instructions Start Date Status LAMICTAL 150 MG TABS 1 tablet daily January 17, 2014 Active LEXAPRO 20 MG TABS 1 tablet twice day January 17, 2014 Active ALPRAZOLAM 0.5 MG TABS 1 tablet daily PRN January 17, 2014 Active ATORVASTATIN CALCIUM 10 MG TABS one tablet every evening Mar 29, 2014 Active BACTRIM DS 800-160 MG TABS one bid. Mar 29, 2014 Inactive DIOVAN HCT 160-12.5 MG TABS one daily January 17, 2014 Inactive AMLODIPINE BESY-BENAZEPRIL HCL 5-40 one daily May 10, 2014 Active MG CAPS AMLODIPINE BESY-BENAZEPRIL HCL 5-20 One tablet every morning. Mar 29, 2014 Inactive MG CAPS AMLODIPINE BESY-BENAZEPRIL HCL 10-40 one daily Aug 23, 2014 Active MG CAPS DYAZIDE 37.5-25 MG CAPS one daily Aug 23, 2014 Active Vital Signs Date Description Test Result January 17, 2014 height Tashi - 8302-2 HEIGHT 65.5 in January 17, 2014 weight Tashi - 3141-9 WEIGHT 240 lb January 17, 2014 temperature E&M TEMPERATURE 98.0 deg f January 17, 2014 pulse rate E&M - 8867-4 PULSE RATE 82 /min January 17, 2014 blood pressure, systolic - 8480-6 BP SYSTOLIC 140 mm Hg January 17, 2014 blood pressure, diastolic - 8462-4 BP DIASTOLIC 90 mm Hg Mar 29, 2014 weight Tashi - 3141-9 WEIGHT 242 lb Mar 29, 2014 temperature E&M TEMPERATURE 97.8 deg f Mar 29, 2014 pulse rate E&M - 8867-4 PULSE RATE 98 /min Mar 29, 2014 blood pressure, systolic - 8480-6 BP SYSTOLIC 140 mm Hg Mar 29, 2014 blood pressure, diastolic - 8462-4 BP DIASTOLIC 86 mm Hg May 10, 2014 weight Tashi - 3141-9 WEIGHT 242 lb May 10, 2014 temperature E&M TEMPERATURE 98.2 deg f May 10, 2014 pulse rate E&M - 8867-4 PULSE RATE 84 /min May 10, 2014 blood pressure, systolic - 8480-6 BP SYSTOLIC 144 mm Hg May 10, 2014 blood pressure, diastolic - 8462-4 BP DIASTOLIC 96 mm Hg May 10, 2014 height Tashi - 8302-2 HEIGHT 65.5 in Aug 23, 2014 height Tashi - 8302-2 HEIGHT 65.5 in Aug 23, 2014 weight Tashi - Kamar1-9 WEIGHT 242 lb Aug 23, 2014 temperature E&M TEMPERATURE 98.1 deg f Aug 23, 2014 pulse rate E&M - 8867-4 PULSE RATE 96 /min Aug 23, 2014 blood pressure, systolic - 8480-6 BP SYSTOLIC 142 mm Hg Aug 23, 2014 blood pressure, diastolic - 8462-4 BP DIASTOLIC 90 mm Hg Results Date Description Test Name Value Reference Interpretation Status January 17, hemoglobin, blood HGB 14.9 g/dL 12.0-16.0 2013January 17, hematocrit, blood HCT 43.8 % 36.0-48.0 2013January 17, platelet count PLATELETS 251 K/CMM 709-152 2618 /mm3 January 17, hemoglobin, blood HGB 14.9 g/dL 12.0-16.0 2013January 17, hematocrit, blood HCT 43.8 % 36.0-48.0 2013January 17, platelet count PLATELETS 251 K/CMM 460-945 5327 /mm3 January 17, cholesterol, serum CHOLESTEROL 271 mg/dl <=199 High 2013January 17, triglyceride, TRIGLYCERIDE 574 mg/dl <=149 High 2013 serum, fasting January 17, HDL cholesterol, HDL 31 mg/dl >=61 Low 2013 serum January 17, LDL cholesterol, LDL See Note <=99 2014 serum mg/dL mg/dl January 17, sodium, serum SODIUM 137 MEQ/L 246-358 8569 mmol/L January 17, potassium, serum POTASSIUM 4.6 MEQ/L 3.5-5.1 2013 mmol/L January 17, creatinine, serum CREATININE 0.7 mg/dL 0.5-1.4 2013January 17, urea nitrogen, BUN 15 mg/dL 7-22 2013 blood January 17, urea BUN/CREAT 21 null 6-25 2013 nitrogen/creatinine ratio, serum January 17, albumin, serum ALBUMIN 4.3 g/dL 3.5-5.0 2013January 17, calcium, serum CALCIUM 9.0 mg/dL 8.5-10.5 2013January 17, alanine SGPT (ALT) 30 U/L 0-65 2013 aminotransferase (SGPT), serum January 17, aspartate SGOT (AST) 12 U/L 0-37 2013 aminotransferase (SGOT), serum January 17, alkaline ALK PHOS 73 U/L 39-136 2013 phosphatase, serum January 17, thyroid stimulating TSH 1.680 0.360-3.740 2013 hormone, serum uIU/mL January 17, cholesterol, serum CHOLESTEROL 271 mg/dl <=199 High 2013January 17, triglyceride, TRIGLYCERIDE 574 mg/dl <=149 High 2013 serum, fasting January 17, HDL cholesterol, HDL 31 mg/dl >=61 Low 2013 serum January 17, LDL cholesterol, LDL See Note <=99 2013 serum mg/dL mg/dl January 17, sodium, serum SODIUM 137 MEQ/L 242-737 5965 mmol/L January 17, potassium, serum POTASSIUM 4.6 MEQ/L 3.5-5.1 2013 mmol/L January 17, creatinine, serum CREATININE 0.7 mg/dL 0.5-1.4 2013January 17, urea nitrogen, BUN 15 mg/dL 7-2013 blood January 17, urea BUN/CREAT 21 null 6-25 2013 nitrogen/creatinine ratio, serum January 17, albumin, serum ALBUMIN 4.3 g/dL 3.5-5.0 2013January 17, calcium, serum CALCIUM 9.0 mg/dL 8.5-10.5 2013January 17, alanine SGPT (ALT) 30 U/L 0-65 2013 aminotransferase (SGPT), serum January 17, aspartate SGOT (AST) 12 U/L 0-37 2013 aminotransferase (SGOT), serum January 17, alkaline ALK PHOS 73 U/L 39-136 2013 phosphatase, serum January 17, thyroid stimulating TSH 1.680 0.360-3.740 2013 hormone, serum uIU/mL May 10, hemoglobin A1C, HGBA1C 5.5 % <=5.6 2014 blood, as % of total hemoglobin May 10, cholesterol, serum CHOLESTEROL 175 mg/dl <=199 2013May 10, triglyceride, TRIGLYCERIDE 246 mg/dl <=149 High 2013 serum, fasting May 10, HDL cholesterol, HDL 36 mg/dl >=61 Low 2013 serum May 10, LDL cholesterol, LDL 90 mg/dl <=99 2013 serum Feb 17, vaginal Pap smear PAP SMEAR Complete 2012 results null
--- OUTSIDE RECORDS SUMMARY | 2019-04-07 23:39 | XMS REPORT | Continuity of Care Document ---
:1970 Author Organization [employer] Care Team Providers Name Role Phone [employer] [facility] Unavailable Unavailable Problems Problem Status Onset Classification Date Comments Source Date Reported Discharge Diagnosis: 03/02/2017 Acute UTI 017 [place] ABD PAIN Active [facility] 017 [place] TMJ SYNDROME Active Condition 08/23/2014 [facility] MEDIAL MENISCUS TEAR, Active Condition 08/23/2014 LEFT [facility] Tear of medial Resolved Problem 04/06/2019 Data [facility] meniscus of knee6 014 [facility]. Temporomandibular Resolved Problem 04/06/2019 Data [facility] [id number] 014 migrated Neuro,[facility] syndrome7 [facility] 02/18[facility]15. POLYDIPSIA Active Condition 08/23/2014 [facility] Excessive thirst2 Resolved Problem 04/06/2019 Data [facility] 014 migrated [facility] from [facility] on 02/18/15. RHINITIS Inactive Condition 08/23/2014 [facility] UTI Inactive Condition 08/23/2014 [facility] Urinary tract Resolved Problem 04/06/2019 Data [facility] infectious disease8 014 migrated [facility] 04/04/15. HYPERTENSION Active Condition 08/23/2014 [facility] DYSLIPIDEMIA Active Condition 08/23/2014 [facility] ANXIETY DEPRESSION Active Condition 08/23/2014 [facility] OBESITY Active Condition 08/23/2014 [facility] PHYSICAL EXAMINATION Active Condition 08/23/2014 014 [facility] Dyslipidemia1 Active Problem 04/06/2019 Data [facility] 014 migrated Neuro, from [facility] on 02/18/15. Hypertensive disorder3 Active Problem 04/06/2019 Data [facility] 014 migrated Neuro, from [facility] on 02/18/15. Mixed anxiety and Active Problem 04/06/2019 Data [facility] depressive disorder4 014 migrated Neuro, from [facility] on 02/18/15. Obesity5 Active Problem 04/06/2019 Data [facility] 014 migrated Neuro, from [facility] on 02/18/15. Diabetes Active Problem 04/06/2019 [facility] Diverticulitis Resolved Problem 04/06/2019 [facility] Headache Active Problem 04/06/2019 [facility] Hypercholesterolemia Active Problem 04/06/2019 [facility] Lumbar radiculopathy Active Problem 04/06/2019 [facility] Depression Active Problem 04/06/2019 [facility] Myocardial infarct Active Problem 04/06/2019 [facility] Hypertension Active Problem 03/02/2017 [facility] Medications Medication Details Route Status Patient Ordering Order Source Instructions Provider Date ezetimibe 10 mg=1 Active tab, PO, 2018 [facility] Daily, # 30 tab, 0 Refill(s) Nitroglycerin See Active Instructi 2019 Neuro ons, 5 mg PO Daily, 0 Refill(s) Lipitor 80 mg, Active PO, 2019 [facility] Daily, 0 Refill(s) Vascepa 1g, PO, Active Daily, 0 2018 Neuro Refill(s) Sertraline 100 mg, Active cher PO, 2019 Neuro Daily, 0 Refill(s) clopidogrel 75 mg, Active cher PO, 2019 Neuro Daily, 0 Refill(s) Hydrochlorothiazide 25 mg, Active [facility] PO, BID, 2018 Neuro 0 Refill(s) Norvasc 5 mg, PO, Active cher Daily, 0 2018 Neuro Refill(s) Metformin 500 mg, Active [facility] PO, BID, 2018 Neuro 0 Refill(s) tramadol 50 mg=1 Active 02/28/ hydrochloride 50 MG tab, PO, 2017 [place] Oral Tablet Q6H, PRN Pain, X 3 day, # 12 tab, 0 Refill(s) 24 HR Ciprofloxacin 500 mg=1 Active 500 MG Extended tab, PO, 2017 [place] Release Tablet Daily, X [Cipro] 5 day, # 5 tab, 0 Refill(s) Benadryl 50 mg, Inactive Route: 2016 [place] IVP, ONCE, Dosing Weight 110.455, kg, Priority: STAT, Start date: 02/27/17 19:30:00 CDT, Stop date: 02/27/17 19:30:00 CDT Morphine 4 mg, Inactive Route: 2016 [place] IVP, ONCE, Dosing Weight 110.455, kg, Priority: STAT, Start date: 02/27/17 18:55:00 CDT, Stop date: 02/27/17 18:55:00 CDT Zofran 4 mg, Inactive Route: 2016 [place] IVP, Drug form: INJ, ONCE, Dosing Weight 110.455, kg, Priority: STAT, Start date: 02/27/17 18:55:00 CDT, Stop date: 02/27/17 18:55:00 CDT Saline Flush 0.9% 10 mL, Inactive Route: 2016 [place] IVP, Drug Form: INJ, kg, PRN, PRN Line Flush, Start date: 02/27/17 17:13:00 CDT, Duration: 30 day, Stop date: 03/29/17 17:12:00 CDTNotes: (Same as: BD Posiflush ) AMLODIPINE one daily Active BESY-BENAZEPRIL HCL 2013 Medical 10-40 MG [facility] DYAZIDE 37.5-25 MG one daily Active CAPS 2014 [facility] AMLODIPINE one daily Active BESY-BENAZEPRIL HCL 2013 Medical 5-40 MG [facility] Group ATORVASTATIN CALCIUM one Active 10 MG TABS tablet 2014 Medical every Group evening AMLODIPINE One No Longer BESY-BENAZEPRIL HCL tablet Active 2013 Medical 5-20 MG CAPS every Group morning. BACTRIM DS 800-160 MG one bid. No Longer TABS Active 2013 [facility] ATORVASTATIN CALCIUM one Active 10 MG TABS tablet 2013 Medical every Group evening DIOVAN HCT 160-12.5 one daily No Longer MG TABS Active 2013 [facility] LAMICTAL 150 MG TABS 1 tablet Active daily 2013 [facility] LEXAPRO 20 MG TABS 1 tablet Active twice day 2013 [facility] ALPRAZOLAM 0.5 MG 1 tablet Active TABS daily PRN 2013 [facility] LEXAPRO 20 MG TABS 1 tablet Active twice day 2013 [facility] ALPRAZOLAM 0.5 MG 1 tablet Active TABS daily PRN 2013 [facility] DIOVAN HCT 160-12.5 one daily No Longer MG TABS Active 2013 [facility] Allergies, Adverse Reactions, Alerts Substance Category Reaction Severity Reaction Status Date Comments Source type Reported No Known Assertion Drug [facility] Medication allergy Neuro Allergies Immunizations No Data Provided for This Section Results Order Name Results Value Reference Date Interpretation Comments Source Range CHEM PANEL eGFR 95 02/27 Result Comment: The [place] eGFR is calculated using the CKD-EPI formula. In most young, healthy individuals the eGFR will be >90 mL/min/1.73m2 . The eGFR declines with age. An eGFR of 60-89 may be normal in some populations, particularly the elderly, for whom the CKD-EPI formula has not been extensively validated. Use of the eGFR is not recommended in the following populations:< br/>
Nadine viduals with unstable creatinine concentration s, including patients and those with serious co-morbid conditions.<b r/>
Patie nts with extremes in muscle mass or diet.

The data above are obtained from the National Kidney Disease Education Program (NKDEP) which additionally recommends that when the eGFR is used in patients with extremes of body mass index for purposes of drug dosing, the eGFR should be multiplied by the estimated BMI. CHEM PANEL ASPARTATE 13 0 - 37 02/27 MH [place] CHEM PANEL BUN 10 7 - 22 02/27 [place] CHEM PANEL Creatinine 0.74 0.50 - 02/27 Lvl 1.40 [place] CHEM PANEL ALANINE 28 0 - 65 02/27 MH AMINO [place] ASE CHEM PANEL Albumin Lvl 3.6 3.5 - 5.0 02/27 [place] CHEM PANEL Alk Phos 81 39 - 136 02/27 [place] CHEM PANEL Glucose Lvl 123 70 - 99 02/27 [place] CHEM PANEL Bili Total 0.3 0.2 - 1.3 02/27 [place] CHEM PANEL Sodium Lvl 143 135 - 145 02/27 [place] CHEM PANEL Total Protein 7.9 6.4 - 8.4 02/27 [place] CHEM PANEL Calcium Lvl 8.9 8.5 - 10.5 02/27 [place] CHEM PANEL Chloride Lvl 107 95 - 109 02/27 [place] CHEM PANEL Potassium Lvl 3.9 3.5 - 5.1 02/27 [place] CHEM PANEL CO2 29 24 - 32 02/27 [place] CHEM PANEL A/G Ratio 0.8 0.7 - 1.6 02/27 [place] CHEM PANEL AGAP 10.9 10.0 - 02/27 MH 20.0 [place] CHEM PANEL Globulin 4.3 2.7 - 4.2 02/27 [place] CHEM PANEL B/C Ratio 14 6 - 25 02/27 [place] CHEM PANEL Lipase Lvl 157 73 - 393 02/27 [place] ENDOCRINOLO hCG Tot 1 02/27 [place] HEMATOLOGY Segs 64.7 45.0 - 02/27 MH 75.0 [place] HEMATOLOGY Lymphocytes # 2.9 1.0 - 5.5 02/27 [place] HEMATOLOGY Basophils # 0.1 0.0 - 0.2 02/27 [place] HEMATOLOGY Eosinophils # 0.4 0.0 - 0.5 02/27 [place] HEMATOLOGY Monocytes # 0.9 0.0 - 0.8 02/27 [place] HEMATOLOGY Segs-Bands # 7.8 1.5 - 8.1 02/27 [place] HEMATOLOGY Eosinophils 3.2 0.0 - 4.0 02/27 [place] HEMATOLOGY Monocytes 7.4 2.0 - 12.0 02/27 [place] HEMATOLOGY Lymphocytes 24.1 20.0 - 06 MH 40.0 /2016 [place] HEMATOLOGY Basophils 0.6 0.0 - 1.0 02/27 MH /2016 [place] HEMATOLOGY Hct 40.4 36.0 - 02/27 MH 48.0 /2016 [place] HEMATOLOGY Hgb 13.9 12.0 - 02/27 MH 16.0 /2016 [place] HEMATOLOGY RBC X 10x6 4.61 4.20 - 02/27 MH 5.40 /2016 [place] HEMATOLOGY WBC X 10x3 12.0 3.7 - 10.4 02/27 [place] HEMATOLOGY MPV 8.1 7.4 - 10.4 02/27 [place] HEMATOLOGY RDW 13.9 11.5 - 02/27 MH 14.5 /2016 [place] HEMATOLOGY Platelet 279 133 - 450 02/27 [place] HEMATOLOGY MCHC 34.5 32.0 - 02/27 MH 36.0 [place] HEMATOLOGY MCH 30.2 27.0 - 02/27 MH 31.0 [place] HEMATOLOGY MCV 87.5 80.0 - 02/27 MH 98.0 [place] URINE AND UA Bacteria Moderate None Seen 02/27 STOOL /HPF /HPF /2016 [place] URINE AND UA Sq Epi Few /LPF Few /LPF 02/27 STOOL /2016 [place] URINE AND UA WBC 11-20 None Seen 02/27 STOOL /HPF /HPF /2016 [place] URINE AND UA RBC 21-50 0 - 2 02/27 STOOL /HPF /2016 [place] URINE AND UA Nitrite See Note Negative 02/27 STO[facility] (02/27/17 5:29 PM) /2016 [place] URINE AND UA Leuk Est Moderate Negative 02/27 STOOL *ABN* /2016 [place] (02/27/17 5:29 PM) URINE AND UA 4.0 0.1 - 1.0 02/27 STOOL Urobilinogen /2016 [place] URINE AND UA Glucose See Note 1 Negative 02/27 Result [facility] (02/27/17 5:29 PM) /2016 Comment: [place] Unable to determine due to interference from color of urine.
17:57 cg URINE AND UA Ketones Negative Negative 02/27 STOOL *NA* /2016 [place] (02/27/17 5:29 PM) URINE AND UA Bili See Note Negative 02/27 [facility] (02/27/17 5:29 PM) [place] URINE AND UA Blood Large Negative 02/27 STOOL *ABN* /2016 [place] (02/27/17 5:29 PM) URINE AND UA Protein >=300 Negative 02/27 STOOL mg/dL mg/dL [place] URINE AND UA Turbidity Slight Cloudy Clear 02/27 [facility] (02/27/17 5:29 PM) [place] URINE AND UA Spec Grav >=1.030 <=1.030 02/27 STOOL *ABN* /2016 [place] (02/27/17 5:29 PM) URINE AND UA pH 5.5 5.0 - 8.0 02/27 STOOL /2016 [place] URINE AND UA Color Altheimer Yellow 02/27 STOOL *ABN* /2016 [place] (02/27/17 5:29 PM) URINE CHEM U Preg Negative Negative 02/27 (02/27/17 5:29 PM) [place] Chemistry HGBA1C 5.5 - 5.6 05/10 [facility] Chemistry CHOLESTEROL 175 - 199 05/10 [facility] Chemistry TRIGLYCERIDE 246 - 149 05/10 [facility] Chemistry HDL 36 >=61 05/10 [facility] Chemistry LDL 90 - 99 05/10 [facility] Chemistry CHOLESTEROL 271 - 199 01/17 [facility] Chemistry TRIGLYCERIDE 574 - 149 01/17 [facility] Chemistry HDL 31 >=61 01/17 [facility] Chemistry LDL See Note - 99 01/17 mg/dL [facility] Chemistry SODIUM 137 MEQ/L 135 - 145 01/17 [facility] Chemistry POTASSIUM 4.6 MEQ/L 3.5 - 5.1 01/17 [facility] Chemistry CREATININE 0.7 0.5 - 1.4 01/17 [facility] Chemistry BUN 15 7 - 22 01/17 [facility] Chemistry BUN/CREAT 21 6 - 25 01/17 [facility] Chemistry ALBUMIN 4.3 3.5 - 5.0 01/17 [facility] Chemistry CALCIUM 9.0 8.5 - 10.5 01/17 [facility] Chemistry SGPT (ALT) 30 0 - 65 01/17 [facility] Chemistry SGOT (AST) 12 0 - 37 01/17 [facility] Chemistry ALK PHOS 73 39 - 136 01/17 [facility] Chemistry TSH 1.680 0.360 - 01/17 3 [facility] Chemistry CHOLESTEROL 271 - 199 01/17 [facility] Chemistry TRIGLYCERIDE 574 - 149 01/17 [facility] Chemistry HDL 31 >=61 01/17 [facility] Chemistry LDL See Note - 99 01/17 mg/dL [facility] Chemistry SODIUM 137 MEQ/L 135 - 145 01/17 [facility] Chemistry POTASSIUM 4.6 MEQ/L 3.5 - 5.1 01/17 [facility] Chemistry CREATININE 0.7 0.5 - 1.4 01/17 [facility] Chemistry BUN 15 7 - 22 01/17 [facility] Chemistry BUN/CREAT 21 6 - 25 01/17 [facility] Chemistry ALBUMIN 4.3 3.5 - 5.0 01/17 [facility] Chemistry CALCIUM 9.0 8.5 - 10.5 01/17 [facility] Chemistry SGPT (ALT) 30 0 - 65 01/17 [facility] Chemistry SGOT (AST) 12 0 - 37 01/17 [facility] Chemistry ALK PHOS 73 39 - 136 01/17 [facility] Chemistry TSH 1.680 0.360 - 01/17 3 [facility] Hematology HGB 14.9 12.0 - 01/17 16.0 [facility] Hematology HCT 43.8 36.0 - 01/17 48.0 [facility] Hematology PLATELETS 251 K/CMM 133 - 450 01/17 [facility] Hematology HGB 14.9 12.0 - 01/17 16.0 [facility] Hematology HCT 43.8 36.0 - 01/17 48.0 [facility] Hematology PLATELETS 251 K/CMM 133 - 450 01/17 [facility] Bending Machine Set Up Operator PAP SMEAR Complete 02/17 [facility] Bending Machine Set Up Operator PAP SMEAR Complete 02/17 [facility] Pathology PAP SMEAR Complete 02/17 [facility] Pathology PAP SMEAR Complete 02/17 [facility] Pathology Reports No Data Provided for This Section Diagnostic Reports Report Value Date Source ED Abdomen/Pelvis IV Study: CT abdomen and pelvis with contrast. 02/27/[address] [facility] [place] [place] contrast only CT HISTORY: Left lower quadrant pain Comments: Abdomen pelvic CT was obtained utilizing multiple axial images from the lung bases to the pelvic outlet. Intravenous contrast was given. Sagittal and coronal reconstructions were reviewed. Total exam DLP is 1695 mgy-cm. Visualized lower chest: The lung bases are clear. Normal size heart. ABDOMEN: The liver, spleen, gallbladder, kidneys, pancreas and adrenal glands are within normal limits. The small and large bowel loops are nondilated. No evidence of acute appendicitis or diverticulitis. No free intraperitoneal air or fluid collections. Urinary bladder is underdistended. 2 x 1.7 cm low-density region within the urinary bladder is not filled with contrast in the delayed images and is of uncertain etiology. Correlate with cystoscopy. Bones are within normal limits. Impression: 2 x 1.7 cm low-density region within the urinary bladder is not filled with contrast in the delayed images and is of uncertain etiology. Correlate with cystoscopy. Colonic diverticulosis without acute diverticulitis. Consultation Notes No Data Provided for This Section Discharge Summaries No Data Provided for This Section History and Physicals No Data Provided for This Section Vital Signs Vital Sign Value Date Comments Source Weight 118.636 04/03/2019 [facility] BMI Calculated 42.21 04/03/2019 [facility] Height 167.64 cm 04/03/2019 [facility] Heart Rate 82 04/03/2019 [facility] Respitory Rate 16 04/03/2019 [facility] Systolic (mm Hg) 121 04/03/2019 [facility] Diastolic (mm Hg) 83 04/03/2019 [facility] Systolic (mm Hg) 133 02/28/2017 [facility] Diastolic (mm Hg) 63 02/28/2017 [facility] Respitory Rate 18 02/28/2017 [facility] Temperature Oral (F) 98 F 02/28/2017 [facility] Heart Rate 82 02/28/2017 [facility] Systolic (mm Hg) 142 02/28/2017 [facility] Diastolic (mm Hg) 70 02/28/2017 [facility] Heart Rate 122 02/27/2017 [facility] Systolic (mm Hg) 128 02/27/2017 [facility] Diastolic (mm Hg) 85 02/27/2017 [facility] Temperature Oral (F) 98.6 F 02/27/2017 [facility] Respitory Rate 18 02/27/2017 [facility] Height 167.64 cm 02/27/2017 [facility] BMI Calculated 39.3 02/27/2017 [facility] Weight 110.455 02/27/2017 [facility] Height 65.5 08/23/2014 [facility] Weight 242 08/23/2014 [facility] Temperature Oral (F) 98.1 F 08/23/2014 [facility] Heart Rate 96 08/23/2014 [facility] Systolic (mm Hg) 142 08/23/2014 [facility] Diastolic (mm Hg) 90 08/23/2014 [facility] Weight 242 05/10/2014 [facility] Temperature Oral (F) 98.2 F 05/10/2014 [facility] Heart Rate 84 05/10/2014 [facility] Systolic (mm Hg) 144 05/10/2014 [facility] Diastolic (mm Hg) 96 05/10/2014 [facility] Height 65.5 05/10/2014 [facility] Weight 242 03/29/2014 [facility] Temperature Oral (F) 97.8 F 03/29/2014 [facility] Heart Rate 98 03/29/2014 [facility] Systolic (mm Hg) 140 03/29/2014 [facility] Diastolic (mm Hg) 86 03/29/2014 [facility] Height 65.5 01/17/2014 [facility] Weight 240 01/17/2014 [facility] Temperature Oral (F) 98.0 F 01/17/2014 [facility] Heart Rate 82 01/17/2014 [facility] Systolic (mm Hg) 140 01/17/2014 [facility] Diastolic (mm Hg) 90 01/17/2014 [facility] Encounters Location Location Encounter Encounter Reason Attending ADM DC Status Source Details Type Number For Provider Date Date Visit [facility] [id number] Samson 01/17 01/17 Srini 6980 [facility] Office [id number] Samson03/29 [place] Visit 1590 [facility] Office [id number] 05/10 Srini Visit 5240 Medical Medical [facility] Lab Report [id number] 05/10 Srini 2930 Medical Medical [facility] Group [facility] Office [id number] Samson 08/23 08/23 Srini Visit 3330 [place], /2013 Medical Medical [facility] Group [facility] Emergency [id number] Spike 02/27 02/28 ZANA Billy /2016 [facility] Outpatient [id number] Ruy 04/03 04/04 [facility] /2018 Neuro [place] Outpatient [id number] Ruy 05/18 [facility] [place] Procedures Procedure Code Date Perfomer Comments Source smoking/tobacco 14 08/23/2014 yes Medical cessation, patient Group education and counseling smoking/tobacco 14 05/10/2014 yes Medical cessation, patient Group education and counseling smoking/tobacco 14 03/29/2014 yes Medical cessation, patient Group education and counseling smoking/tobacco 14 01/17/2014 DONE Medical cessation, patient Group education and counseling mammogram [id number] 04/19/2013 [facility] vaginal Pap smear [id number] 02/17/2013 [facility] Assessment and Plan No Data Provided for This Section Plan of Care No Data Provided for This Section Social History Social History Date Source Social History TypeResponse 04/03/2019 [facility] Employment/School Status: Employed. Work/School description: [employer]. Smoking Status Current every day smoker; Lives with someone who smokes; Cigarette Smoking Last 365 Days Yes; Reg Smoking Cessation Counseling Yes entered on: 04/03/19 Social History TypeResponse 02/27/2017 [facility] Smoking Status Current every day smoker; Lives with someone who smokes; Cigarette Smoking Last 365 Days Yes; Reg Smoking Cessation Counseling Yes Family History No Data Provided for This Section Advance Directives No Data Provided for This Section Functional Status No Data Provided for This Section
--- OUTSIDE RECORDS SUMMARY | 2019-04-07 23:39 | XMS REPORT | Continuity of Care Document ---
:1970 Author Organization [facility] Care Team Providers Name Role Phone MD Uriel, Samson Unavailable Unavailable Insurance Providers Payer name Policy type / Coverage type Policy ID Covered democrat ID Policy [place] AET[employer] AET[employer] Encounters Encounter Performer Location Date Lab Report Samson Trevino MD [facility] May 10, 2014 Problems Problem Effective Dates Problem Status HYPERTENSION January 17, 2014 Active DYSLIPIDEMIA January 17, 2014 Active ANXIETY DEPRESSION January 17, 2014 Active OBESITY January 17, 2014 Active PHYSICAL EXAMINATION January 17, 2014 Active RHINITIS Mar 29, 2014 Active UTI Mar 29, 2014 Active POLYDIPSIA May 10, 2014 Active Procedures Date Description Comments January [...] tablet every evening Mar 29, 2014 Active AMLODIPINE BESY-BENAZEPRIL HCL 5-20 One tablet every morning. Mar 29, 2014 Active MG CAPS BACTRIM DS 800-160 MG TABS one bid. Mar 29, 2014 Inactive DIOVAN HCT 160-12.5 MG TABS one daily January 17, 2014 Inactive AMLODIPINE BESY-BENAZEPRIL HCL 5-40 one daily May 10, 2014 Active MG CAPS Vital Signs Date Description Test Result January 17, 2014 height E&M HEIGHT 65.5 in January 17, 2014 weight E&M WEIGHT 240 lb January 17, 2014 temperature E&M TEMPERATURE 98.0 deg f January 17, 2014 pulse rate E&M PULSE RATE 82 /min January 17, 2014 blood pressure, systolic BP SYSTOLIC 140 mm Hg January 17, 2014 blood pressure, diastolic BP DIASTOLIC 90 mm Hg Mar 29, 2014 weight E&M WEIGHT 242 lb Mar 29, 2014 temperature E&M TEMPERATURE 97.8 deg f Mar 29, 2014 pulse rate E&M PULSE RATE 98 /min Mar 29, 2014 blood pressure, systolic BP SYSTOLIC 140 mm Hg Mar 29, 2014 blood pressure, diastolic BP DIASTOLIC 86 mm Hg May 10, 2014 weight E&M WEIGHT 242 lb May 10, 2014 temperature E&M TEMPERATURE 98.2 deg f May 10, 2014 pulse rate E&M PULSE RATE 84 /min May 10, 2014 blood pressure, systolic BP SYSTOLIC 144 mm Hg May 10, 2014 blood pressure, diastolic BP DIASTOLIC 96 mm Hg May 10, 2014 height E&M HEIGHT 65.5 in Results Date Description Test Name Value Reference Interpretation Status January 17, hemoglobin, blood HGB 14.9 g/dL 12.0-16.0 2013January 17, hematocrit, blood HCT 43.8 % 36.0-48.0 2013January 17, platelet count PLATELETS 251 K/CMM [phone] /mm3 January 17, hemoglobin, blood HGB 14.9 g/dL 12.0-16.0 2013January 17, hematocrit, blood HCT 43.8 % 36.0-48.0 2013January 17, platelet count PLATELETS 251 K/CMM [phone] /mm3 January 17, cholesterol, serum CHOLESTEROL 271 mg/dl <=199 High 2013January 17, triglyceride, TRIGLYCERIDE 574 mg/dl <=149 High 2013 serum, fasting January 17, HDL cholesterol, HDL 31 mg/dl >=61 Low 2013 serum January 17, LDL cholesterol, LDL See Note <=99 2013 serum mg/dL mg/dl January 17, sodium, serum SODIUM 137 MEQ/L [phone] mmol/L January 17, potassium, serum POTASSIUM 4.6 [...] January 17, sodium, serum SODIUM 137 MEQ/L [phone] mmol/L January 17, potassium, serum POTASSIUM 4.6 MEQ/L 3.5-5.1 2013 mmol/L January 17, creatinine, serum CREATININE 0.7 mg/dL 0.5-1.4 2013January 17, urea nitrogen, BUN 15 mg/dL 04-09 blood January 17, urea BUN/CREAT 21 null [...]
--- OUTSIDE RECORDS SUMMARY | 2019-04-07 23:39 | XMS REPORT | Continuity of Care Document ---
:1970 Author Organization [facility] Care Team Providers Name Role Phone MD Uriel, Samson Unavailable Unavailable Insurance Providers Payer name Policy type / Coverage type Policy ID Covered constitution party ID Policy Simmons AETNA AETNA Encounters Encounter Performer Location Date Office Visit Samson Trevino MD [facility] Mar 29, 2014 Problems Problem Effective Dates Problem Status HYPERTENSION January 17, 2014 Active DYSLIPIDEMIA January 17, 2014 Active ANXIETY DEPRESSION January 17, 2014 Active OBESITY January 17, 2014 Active PHYSICAL EXAMINATION January 17, 2014 Active RHINITIS Mar 29, 2014 Active UTI Mar 29, 2014 Active Procedures Date Description Comments January 17, 2014 smoking status current every day smoker Feb 17, 2013 vaginal Pap smear results Complete January 17, 2014 smoking/tobacco cessation, patient education DONE and counseling Apr 19, 2013 mammogram Complete Mar 29, 2014 smoking status Current every day smoker Mar 29, 2014 smoking/tobacco cessation, patient education yes and counseling Medications Medication Instructions Start Date Status DIOVAN HCT 160-12.5 MG TABS one daily January 17, 2014 Active LAMICTAL 150 MG TABS 1 tablet daily January 17, 2014 Active LEXAPRO 20 MG TABS 1 tablet twice day January 17, 2014 Active ALPRAZOLAM 0.5 MG TABS 1 tablet daily PRN January 17, 2014 Active ATORVASTATIN CALCIUM 10 MG TABS one tablet every evening Mar 29, 2014 Active AMLODIPINE BESY-BENAZEPRIL HCL 5-20 MG One tablet every morning. Mar 29, 2014 Active CAPS BACTRIM DS 800-160 MG TABS one bid. Mar 29, 2014 Active Vital Signs Date Description Test [...] pressure, diastolic BP DIASTOLIC 86 mm Hg Results Date Description Test Name Value Reference Interpretation Status January 17, hemoglobin, blood HGB 14.9 g/dL 12.0-16.0 2013January 17, hematocrit, blood HCT 43.8 % 36.0-48.0 2013January 17, platelet count PLATELETS 251 K/CMM [phone] /mm3 January 17, hemoglobin, blood HGB 14.9 g/dL 12.0-16.0 2013January 17, hematocrit, blood HCT 43.8 % 36.0-48.0 2013January 17, platelet count PLATELETS 251 K/CMM [phone] /mm3 January 17, cholesterol, serum CHOLESTEROL 271 mg/dl <=199 High 2013January 17, triglyceride, TRIGLYCERIDE 574 mg/dl <=149 High 2013 serum, fasting January 17, HDL cholesterol, HDL 31 mg/dl >=61 Low 2013 serum January 17, LDL cholesterol, LDL See Note <=99 2013 serum mg/dL mg/dl January 17, sodium, serum SODIUM 137 MEQ/L [phone] mmol/L January 17, potassium, serum POTASSIUM 4.6 [...] 17, triglyceride, TRIGLYCERIDE 574 mg/dl <=149 High 2014 serum, fasting January 17, HDL cholesterol, HDL 31 mg/dl >=61 Low 2013 serum January 17, LDL cholesterol, LDL See Note <=99 2014 serum mg/dL mg/dl January 17, sodium, serum SODIUM 137 MEQ/L [phone] mmol/L January 17, potassium, serum POTASSIUM 4.6 MEQ/L 3.5-5.1 2013 mmol/L January 17, creatinine, serum CREATININE 0.7 mg/dL 0.5-1.4 2013January 17, urea nitrogen, BUN 15 mg/dL 7-2013 blood January 17, urea BUN/CREAT 21 null -2013 nitrogen/creatinine ratio, serum January 17, albumin, serum [...] TSH 1.680 0.360-3.740 2013 hormone, serum uIU/mL Feb 17, vaginal Pap smear PAP SMEAR Complete 2012 results null
--- OUTSIDE RECORDS SUMMARY | 2019-04-07 23:39 | XMS REPORT | Continuity of Care Document ---
:1970 Author Organization [facility] Care Team Providers Name Role Phone MD Uriel, Samson Unavailable Unavailable Insurance Providers Payer name Policy type / Coverage type Policy ID Covered alliance party ID Policy Simmons AETNA AETNA Encounters Encounter Performer Location Date Office Visit Samson Trevino MD [facility] May 10, 2014 Problems Problem Effective Dates [...] 2013January 17, platelet count PLATELETS 251 K/CMM [phone] /mm3 January 17, hemoglobin, blood HGB 14.9 g/dL 12.0-16.0 2013January 17, hematocrit, blood HCT 43.8 % 36.0-48.0 2013January 17, platelet count PLATELETS 251 K/CMM [phone] /mm3 January 17, cholesterol, serum CHOLESTEROL 271 mg/dl <=199 High 2013January 17, triglyceride, TRIGLYCERIDE 574 mg/dl <=149 High 2013 serum, fasting January 17, HDL cholesterol, HDL 31 mg/dl >=61 Low 2013 serum January 17, LDL cholesterol, LDL See Note <=99 2013 serum mg/dL mg/dl January 17, sodium, serum SODIUM 137 MEQ/L [phone] mmol/L January 17, potassium, serum POTASSIUM 4.6 [...] January 17, sodium, serum SODIUM 137 MEQ/L [phone] mmol/L January 17, potassium, serum POTASSIUM 4.6 [...]
--- OUTSIDE RECORDS SUMMARY | 2019-04-07 23:39 | XMS REPORT | Continuity of Care Document ---
:1970 Author Organization [facility] Care Team Providers Name Role Phone MD Uriel, Samson Unavailable Unavailable Insurance Providers Payer name Policy type / Coverage type Policy ID Covered democrat ID Policy Simmons AETNA AETNA Encounters Encounter Performer Location Date Lab Report Samson Trevino MD [facility] January 17, 2014 Problems Problem Effective Dates Problem Status HYPERTENSION January 17, 2014 Active DYSLIPIDEMIA January 17, 2014 Active ANXIETY DEPRESSION January 17, 2014 Active OBESITY January 17, 2014 Active PHYSICAL EXAMINATION January 17, 2014 Active Procedures Date Description Comments January 17, 2014 smoking status current every day smoker Feb 17, 2013 vaginal Pap smear results Complete January 17, 2014 smoking/tobacco cessation, patient education DONE and counseling Apr 19, 2013 mammogram Complete Medications Medication Instructions Start Date Status DIOVAN HCT 160-12.5 MG TABS one daily January 17, 2014 Active LAMICTAL 150 MG TABS 1 tablet daily January 17, 2014 Active LEXAPRO 20 MG TABS 1 tablet twice day January 17, 2014 Active ALPRAZOLAM 0.5 MG TABS 1 tablet daily PRN January 17, 2014 Active Vital Signs Date Description Test Result January 17, 2014 height E&M - 8302-2 HEIGHT 65.5 in January 17, 2014 weight E&M - 3141-9 WEIGHT 240 lb January 17, [...] 2013January 17, platelet count PLATELETS 251 K/CMM [phone] /mm3 January 17, hemoglobin, blood HGB 14.9 g/dL 12.0-16.0 2013January 17, hematocrit, blood HCT 43.8 % 36.0-48.0 2013January 17, platelet count PLATELETS 251 K/CMM [phone] /mm3 January 17, cholesterol, serum CHOLESTEROL 271 mg/dl <=199 High 2013January 17, triglyceride, TRIGLYCERIDE 574 mg/dl <=149 High 2013 serum, fasting January 17, HDL cholesterol, HDL 31 mg/dl >=61 Low 2013 serum January 17, LDL cholesterol, LDL See Note <=99 2013 serum mg/dL mg/dl January 17, sodium, serum SODIUM 137 MEQ/L [phone] mmol/L January 17, potassium, serum POTASSIUM 4.6 MEQ/L 3.5-5.1 2013 mmol/L January 17, creatinine, serum CREATININE 0.7 mg/dL 0.5-1.4 2013January 17, urea nitrogen, BUN 15 mg/dL 04-09 blood January 17, urea BUN/CREAT 21 null 03-13 nitrogen/creatinine ratio, serum January 17, albumin, serum [...] HDL cholesterol, HDL 31 mg/dl >=61 Low 2013January 17, LDL cholesterol, LDL See Note <=99 2013 serum mg/dL mg/dl January 17, sodium, serum SODIUM 137 MEQ/L [phone] mmol/L January 17, potassium, serum POTASSIUM 4.6 [...] January 17, thyroid stimulating TSH 1.680 0.360-3.740 2014 hormone, serum uIU/mL Feb 17, vaginal Pap smear PAP SMEAR Complete 2013 results null
--- OUTSIDE RECORDS SUMMARY | 2019-04-07 23:40 | XMS REPORT | Summary of Care ---
:1970 Author Organization [facility] [place] Address [address] [place] [address]- Encounter HQ Jorge(FIN) [id number] Date(s): 04/03/19 - 04/03/19 [facility] [address] [place] [address]- [phone] Discharge Disposition: Home or Self Care Attending Physician: Ruy Mac MD Referring Physician: Ruy Mac MD Vital Signs Most recent to oldest [Reference Range]: 1 Height 167.64 cm (04/03/19 1:11 PM) Blood Pressure [90-140/60-90 mmHg] 121/83 mmHg (04/03/19 1:11 PM) Respiratory Rate [14-20 BRMIN] 16 BRMIN (04/03/19 1:11 PM) Peripheral Pulse Rate [60-100 bpm] 82 bpm (04/03/19 1:11 PM) Weight 118.636 kg (04/03/19 1:11 PM) Body Mass Index 42.21 m2 (04/03/19 1:11 PM) Problem List Condition Effective Dates Status Health Status Informant Diabetes(Confirmed) Active Diverticulitis(Confirmed) Resolved Dyslipidemia1 01/17/14 Active Excessive thirst2 05/10/14 Resolved Headache(Confirmed) Active Hypercholesterolemia(Confirmed) Active Hypertensive disorder3 01/17/14 Active Lumbar radiculopathy(Confirmed) Active 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 Depression(Confirmed) Active Myocardial infarct(Confirmed) Active Obesity5 01/17/14 Active Tear of medial meniscus of knee6 08/23/14 Resolved 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 Allergies, Adverse Reactions, Alerts No Known Medication Allergies Medications clopidogrel 75 mg, PO, Daily, 0 Refill(s) Start Date: 04/03/19 Status: Orderedezetimibe 10 mg=1 tab, PO, Daily, # 30 tab, 0 Refill(s) Start Date: 04/03/19 Status: Orderedhydrochlorothiazide 25 mg, PO, BID, 0 Refill(s) Start Date: 04/03/19 Status: OrderedLipitor 80 mg, PO, Daily, 0 Refill(s) Start Date: 04/03/19 Status: OrderedmetFORMIN 500 mg, PO, BID, 0 Refill(s) Start Date: 04/03/19 Status: Orderednitroglycerin See Instructions, 5 mg PO Daily, 0 Refill(s) Start Date: 04/03/19 Status: OrderedNorvasc 5 mg, PO, Daily, 0 Refill(s) Start Date: 04/03/19 Status: Orderedsertraline 100 mg, PO, Daily, 0 Refill(s) Start Date: 04/03/19 Status: OrderedVascepa 1g, PO, Daily, 0 Refill(s) Start Date: 04/03/19 Status: Ordered Results No data available for this section Immunizations No data available for this section Procedures No data available for this section Social History Social History Type Response Employment/School Status: Employed. Work/School description: [employer]. Smoking Status Current every day smoker; Lives with someone who smokes; Cigarette Smoking Last 365 Days Yes; Reg Smoking Cessation Counseling Yes entered on: 04/03/19 Assessment and Plan No data available for this section
--- OUTSIDE RECORDS SUMMARY | 2019-04-07 23:40 | XMS REPORT | Summary of Care ---
:1970 Author Organization [facility] Address [address] [place] [address]- Encounter HQ Varun_clemencia(FIN) [id number] Date(s): 02/27/17 - 02/27/17 [facility] [id number] [place] [address] [phone] Discharge Diagnosis: Acute UTI Discharge Disposition: Home or Self Care Attending Physician: Spike Billy MD Vital Signs Most recent to oldest 1 2 3 [Reference Range]: Height 167.64 cm (02/27/17 5:13 PM) Temperature Oral [96.4-99.1 98 DegF 98.6 DegF DegF] (02/27/17 7:36 PM) (02/27/17 5:13 PM) Blood Pressure [90-140/60-90 133/63 mmHg 142/70 mmHg 128/85 mmHg mmHg] (02/27/17 8:20 PM) *HI* (02/27/17 5:13 PM) (02/27/17 7:36 PM) Respiratory Rate [14-20 BRMIN] 18 BRMIN 18 BRMIN (02/27/17 7:36 PM) (02/27/17 5:13 PM) Peripheral Pulse Rate [60-100 82 bpm 122 bpm bpm] (02/27/17 7:36 PM) *HI* (02/27/17 5:13 PM) Weight 110.455 kg (02/27/17 5:13 PM) Body Mass Index 39.3 m2 (02/27/17 5:13 PM) Problem List Condition Effective Dates Status Health Status Informant Diverticulitis(Confirmed) Active Dyslipidemia1 01/17/14 Active Excessive thirst2 05/10/14 Active Hypercholesterolemia(Confirmed) Active Hypertensive disorder3 01/17/14 Active Hypertension(Confirmed) Active 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 Allergies, Adverse Reactions, Alerts Substance Reaction Severity Status NKDA1 Active 1Data migrated from [employer] on 11/11/15. Originally documented as NKA. Medications Benadryl 50 mg, Route: IVP, ONCE, Dosing Weight 110.455, kg, Priority: STAT, Start date: 02/27/17 19:30:00 CDT, Stop date: 02/27/17 19:30:00 CDT Start Date: 02/27/17 Stop Date: 02/27/17 Status: CompletedCipro XR 500 mg oral tablet, extended release 500 mg=1 tab, PO, Daily, X 5 day, # 5 tab, 0 Refill(s) Start Date: 02/27/17 Stop Date: 03/04/17 Status: Orderedmorphine Sulfate 4 mg, Route: IVP, ONCE, Dosing Weight 110.455, kg, Priority: STAT, Start date: 02/27/17 18:55:00 CDT, Stop date: 02/27/17 18:55:00 CDT Start Date: 02/27/17 Stop Date: 02/27/17 Status: CompletedSaline Flush 0.9% 10 mL, Route: IVP, Drug Form: INJ, kg, PRN, PRN Line Flush, Start date: 17:13:00 CDT, Duration: 30 day, Stop date: 03/29/17 17:12:00 CDT Notes: (Same as: BD Posiflush) Start Date: 02/27/17 Stop Date: 02/27/17 Status: Discontinuedtramadol 50 mg oral tablet 50 mg=1 tab, PO, Q6H, PRN Pain, X 3 day, # 12 tab, 0 Refill(s) Start Date: 02/27/17 Stop Date: 03/02/17 Status: OrderedZofran 4 mg, Route: IVP, Drug form: INJ, ONCE, Dosing Weight 110.455, kg, Priority: STAT, Start date: 02/27/17 18:55:00 CDT, Stop date: 02/27/17 18:55:00 CDT Start Date: 02/27/17 Stop Date: 02/27/17 Status: Completed Results ELECTROLYTES Most recent to oldest [Reference Range]: 1 Sodium Lvl [135-145 mEq/L] 143 mEq/L (02/27/17 5:38 PM) Potassium Lvl [3.5-5.1 mEq/L] 3.9 mEq/L (02/27/17 5:38 PM) Chloride Lvl [95-109 mEq/L] 107 mEq/L (02/27/17 5:38 PM) CO2 [24-32 mEq/L] 29 mEq/L (02/27/17 5:38 PM) AGAP [10.0-20.0 mEq/L] 10.9 mEq/L (02/27/17 5:38 PM) CHEM PANEL Most recent to oldest [Reference Range]: 1 Creatinine Lvl [0.50-1.40 mg/dL] 0.74 mg/dL (02/27/17 5:38 PM) eGFR 95 mL/min/1.73m2 1 *NA* (02/27/17 5:38 PM) BUN [7-22 mg/dL] 10 mg/dL (02/27/17 5:38 PM) B/C Ratio [6-25] 14 (02/27/17 5:38 PM) Glucose Lvl [70-99 mg/dL] 123 mg/dL *HI* (02/27/17 5:38 PM) Total Protein [6.4-8.4 g/dL] 7.9 g/dL (02/27/17 5:38 PM) Albumin Lvl [3.5-5.0 g/dL] 3.6 g/dL (02/27/17 5:38 PM) Globulin [2.7-4.2 g/dL] 4.3 g/dL *HI* (02/27/17 5:38 PM) A/G Ratio [0.7-1.6] 0.8 (02/27/17 5:38 PM) Calcium Lvl [8.5-10.5 mg/dL] 8.9 mg/dL (02/27/17 5:38 PM) ALT [0-65 unit/L] 28 unit/L (02/27/17 5:38 PM) AST [0-37 unit/L] 13 unit/L (02/27/17 5:38 PM) Alk Phos [39-136 unit/L] 81 unit/L (02/27/17 5:38 PM) Bili Total [0.2-1.3 mg/dL] 0.3 mg/dL (02/27/17 5:38 PM) Lipase Lvl [73-393 unit/L] 157 unit/L (02/27/17 5:38 PM) 1Result Comment: The eGFR is calculated using the CKD-EPI formula. In most young , healthy individualsthe eGFR will be >90 mL/min/1.73m2. The eGFR declines with age. An eGFR of 60-89 may be normal in some populations, particularly the elderly, for whom the CKD-EPI formula has not been extensively validated. Use of the eGFR is not recommended in the following populations: Individuals with unstable creatinine concentrations, including patients and those with serious co-morbid conditions. Patients with extremes in muscle mass or diet. The data above are obtained from the National Kidney Disease Education Program ( NKDEP) which additionally recommends that when the eGFR is used in patients with extremes of body mass index for purposesof drug dosing, the eGFR should be multiplied by the estimated BMI.ENDOCRINOLOGY Most recent to oldest [Reference Range]: 1 hCG Tot 1 mIU/mL *NA* (02/27/17 5:38 PM) URINE CHEM Most recent to oldest [Reference Range]: 1 U Preg [Negative] Negative (02/27/17 5:29 PM) URINE AND STOOL Most recent to oldest [Reference Range]: 1 UA Turbidity [Clear] Slight Cloudy (02/27/17 5:29 PM) UA Color [Yellow] Phelps *ABN* (02/27/17 5:29 PM) UA pH [5.0-8.0] 5.5 (02/27/17 5:29 PM) UA Spec Grav [<=1.030] >=1.030 *ABN* (02/27/17 5:29 PM) UA Glucose [Negative] See Note 1 (02/27/17 5:29 PM) UA Blood [Negative] Large *ABN* (02/27/17 5:29 PM) UA Ketones [Negative] Negative *NA* (02/27/17 5:29 PM) UA Protein [Negative mg/dL] >=300 mg/dL *ABN* (02/27/17 5:29 PM) UA Urobilinogen [0.1-1.0 EU/dL] 4.0 EU/dL *HI* (02/27/17 5:29 PM) UA Bili [Negative] See Note (02/27/17 5:29 PM) UA Leuk Est [Negative] Moderate *ABN* (02/27/17 5:29 PM) UA Nitrite [Negative] See Note (02/27/17 5:29 PM) UA WBC [None Seen /HPF] 11-20 /HPF *ABN* (02/27/17 5:29 PM) UA RBC [0-2 /HPF] 21-50 /HPF *ABN* (02/27/17 5:29 PM) UA Bacteria [None Seen /HPF] Moderate /HPF (02/27/17 5:29 PM) UA Sq Epi [Few /LPF] Few /LPF (02/27/17 5:29 PM) 1Result Comment: Unable to determine due to interference from color of urine. 02/27/2017 17:57 cgHEMATOLOGY Most recent to oldest [Reference Range]: 1 WBC [3.7-10.4 K/CMM] 12.0 K/CMM *HI* (02/27/17 5:38 PM) RBC [4.20-5.40 M/CMM] 4.61 M/CMM (02/27/17 5:38 PM) Hgb [12.0-16.0 g/dL] 13.9 g/dL (02/27/17 5:38 PM) Hct [36.0-48.0 %] 40.4 % (02/27/17 5:38 PM) MCV [80.0-98.0 fL] 87.5 fL (02/27/17 5:38 PM) MCH [27.0-31.0 pg] 30.2 pg (02/27/17 5:38 PM) MCHC [32.0-36.0 g/dL] 34.5 g/dL (02/27/17 5:38 PM) RDW [11.5-14.5 %] 13.9 % (02/27/17 5:38 PM) Platelet [133-450 K/CMM] 279 K/CMM (02/27/17 5:38 PM) MPV [7.4-10.4 fL] 8.1 fL (02/27/17 5:38 PM) Segs [45.0-75.0 %] 64.7 % (02/27/17 5:38 PM) Lymphocytes [20.0-40.0 %] 24.1 % (02/27/17 5:38 PM) Monocytes [2.0-12.0 %] 7.4 % (02/27/17 5:38 PM) Eosinophils [0.0-4.0 %] 3.2 % (02/27/17 5:38 PM) Basophils [0.0-1.0 %] 0.6 % (02/27/17 5:38 PM) Segs-Bands # [1.5-8.1 K/CMM] 7.8 K/CMM (02/27/17 5:38 PM) Lymphocytes # [1.0-5.5 K/CMM] 2.9 K/CMM (02/27/17 5:38 PM) Monocytes # [0.0-0.8 K/CMM] 0.9 K/CMM *HI* (02/27/17 5:38 PM) Eosinophils # [0.0-0.5 K/CMM] 0.4 K/CMM (02/27/17 5:38 PM) Basophils # [0.0-0.2 K/CMM] 0.1 K/CMM (02/27/17 5:38 PM) Immunizations No data available for this section Procedures No data available for this section Social History Social History Type Response Smoking Status Current every day smoker; Lives with someone who smokes; Cigarette Smoking Last 365 Days Yes; Reg Smoking Cessation Counseling Yes Assessment and Plan No data available for this section
[2019-04-08 00:27] LABS: Absolute Lymphocytes (CBC) 2.6 K/uL (0.7-4.9); Basophils % 0.9 % (0-1.3); Hematocrit 39.9 % (36.0-45.0); Lymphocytes % 22.6 % (15.3-44.8); MPV 9.2 fL (7.6-11.3); Monocytes % 7.4 % (3.3-12.3)
[2019-04-08 00:28] LABS: Protime INR 0.96
[2019-04-08] MEDS ORDERED: ASPIRIN 81 MG CHEWABLE TABLET ONE (00:48)
[2019-04-08] MEDS ORDERED: ONDANSETRON 4 MG/2 ML VIAL ONE (00:49)
[2019-04-08] MEDS ORDERED: FENTANYL CITR 100 MCG/2 ML ONE (00:49)
[2019-04-08 01:00] LABS: ALT/SGPT 30 U/L (12-78); AST/SGOT 16 U/L (15-37); Albumin 3.6 g/dL (3.4-5.0); Alkaline Phosphatase 96 U/L (45-117); BUN Blood Urea Nitrogen 15 mg/dL (7-18); Bicarbonate 26 mmol/L (21-32); Bilirubin Direct < 0.1 mg/dL (0-0.2); Bilirubin Total 0.2 mg/dL (0.2-1.0); Glucose Level 179 mg/dL (74-106); Magnesium 1.9 mg/dL (1.8-2.4); NT PRO-BNP 76 pg/mL (<125); Potassium 3.7 mmol/L (3.5-5.1); Protein, Total 7.4 g/dL (6.4-8.2); Sodium Level 139 mmol/L (136-145); Troponin (Emerg Dept Use Only) < 0.02 ng/mL (0.0-0.045)
--- NOTE | 2019-04-08 03:30 | ER ---
Nurse's Notes [facility] Name: Kelley Ordaz Age: 48 yrs Sex: Female : 1970 Arrival Date: 04/07/2019 Time: 23:38 Bed 15 Private MD: Edvin Perez B Diagnosis: Chest pain, unspecified Presentation: 04/07 23:57 Presenting complaint: Patient states: she has been having left arm pain all day then bb for the last 45 mins she has been having chest pain with various other areas of pain. Transition of care: patient was not received from another setting of care. Onset of symptoms was April 07, 2019. Risk Assessment: Do you want to hurt yourself or someone else? Patient reports no desire to harm self or others. Initial Sepsis Screen: Does the patient meet any 2 criteria? No. Patient's initial sepsis screen is negative. Does the patient have a suspected source of infection? No. Patient's initial sepsis screen is negative. Care prior to arrival: None. 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 00:06 LMP N/A - Post-menopause bb Historical: - Allergies: 00:06 Iodine (Respiratory distress); bb - Home Meds: 00:06 Norvasc 5 mg oral tab [Active]; Plavix 75 mg Oral tab 1 tab once daily [Active]; bb ezetimibe oral oral [Active]; Hydrochlorothiazide Oral [Active]; Lipitor Oral [Active]; Metformin Oral [Active]; Nitroglycerin SL [Active]; sertraline oral oral [Active]; Vascepa oral oral [Active]; Vitamin D3 oral oral [Active]; - PMHx: 00:06 Depression; High Cholesterol; Hypertension; CAD; Myocardial infarction; Diverticulitis; bb - PSHx: 00:06 Heart stents; uterine ablation; Carpal Tunnel Repair; Tubal ligation; TURBT; bb - Immunization history:: Adult Immunizations up to date. - Social history:: Smoking status: Patient uses tobacco products, smokes one pack cigarettes per day. Patient uses alcohol, but reports only rare drinking. - Ebola Screening: : No symptoms or risks identified at this time. Screenin:06 Abuse screen: Denies threats or abuse. Nutritional screening: No deficits noted. la1 Tuberculosis screening: No symptoms or risk factors identified. Fall Risk None identified. Assessment: 00:08 General: Appears in no apparent distress. Behavior is calm, cooperative. Pain: la1 Complains of pain in Chest, back, left arm, left leg, headache. Neuro: Level of Consciousness is awake, alert, obeys commands, Oriented to person, place, time, situation. Cardiovascular: Capillary refill < 3 seconds Patient's skin is warm and dry. Respiratory: Airway is patent Respiratory effort is even, unlabored, Respiratory pattern is regular, symmetrical, Breath sounds are clear bilaterally. GI: No signs and/or symptoms were reported involving the gastrointestinal system. : No signs and/or symptoms were reported regarding the genitourinary system. 01:47 Reassessment: pt family member comes out and states pt c/o increase in pain in her ch back, relieved with laying the bed down, and that the pt thinks the pain medication is wearing off. when I go in room to assess pt. pt appears asleep, eyes closed resps even and unlabored, no s/s of distress or pain at this time. pillow and call light within pt reach. Rashi notified of pt status, awaiting repeat blood draw. 02:50 Reassessment: Patient appears in no apparent distress at this time. No changes from la1 previously documented assessment. Patient and/or family updated on plan of care and expected duration. Pain level reassessed. Patient is alert, oriented x 3, equal unlabored respirations, skin warm/dry/pink. 03:00 Pain: Pain does not radiate. Pain began gradually. Vital Signs: 00:05 BP 114 / 57; Pulse 83; Resp 16; Temp 97.5; Pulse Ox 98% on R/A; la1 01:30 BP 97 / 58; Pulse 71; Resp 16; Pulse Ox 95% on R/A; ch 02:55 BP 114 / 49; Pulse 66; Resp 16; Pulse Ox 93% on R/A; la1 ED Course: 04/07 23:38 Patient arrived in ED. am2 23:39 Edvin Perez MD is Private Physician. am2 23:57 [facility]armad [facility]weeney [facility] jr8 23:57 Dwight Leach MD is Attending Physician. jr8 04/08 00:01 Triage completed. bb 00:05 Rashi Alvarado, RN is Primary Nurse. la1 00:06 Arm band placed on left wrist. EKG completed in triage. Results shown to MD. la1 00:06 No provider procedures requiring assistance completed. Inserted saline lock: 20 gauge la1 in right antecubital area, using aseptic technique. Patient maintains SpO2 saturation greater than 95% on room air. 00:09 Placed in gown. Bed in low position. Call light in reach. certified novell engineer on. Pulse ox la1 on. NIBP on. 00:11 X-ray completed. Portable x-ray completed in exam room. Patient tolerated procedure kw well. 02:11 XRAY Chest (1 view) In Process Unspecified. EDMS 02:59 Primary Nurse role handed off by Rashi Alvarado RN 02:59 Sydney Godwin, RN is Primary Nurse. 03:20 IV discontinued, intact, bleeding controlled, No redness/swelling at site. Pressure ch dressing applied. Administered Medications: 00:38 Drug: Zofran 4 mg Route: IVP; Site: right antecubital; la1 00:54 Follow up: Response: No adverse reaction la1 00:38 Drug: fentaNYL (PF) 50 mcg Route: IVP; Site: right antecubital; la1 00:55 Follow up: Response: No adverse reaction; Pain is decreased la1 00:39 Drug: Aspirin Chewable Tablet 324 mg Route: PO; la1 00:55 Follow up: Response: No adverse reaction la1 Outcome: 03:29 Discharge ordered by MD. berry 03:35 Discharged to home ambulatory, with family. 03:35 Condition: stable 03:35 Discharge instructions given to patient, family, Instructed on discharge instructions, follow up and referral plans. Demonstrated understanding of instructions, follow-up care. 03:40 Patient left the ED. Signatures: Dispatcher [employer] EDWY Sydney Godwin, ABI ALEX Katya Shah RN RN bb Whitley, Kimberlee kw Roszak, Josh, PA PA jrRashi Alexandre RN RN la1 Aubree Dunn am2 Corrections: (The following items were deleted from the chart) 01:17 00:05 BP 114 / 57; Pulse 83bpm; Resp 16bpm; Pulse Ox 98% RA; la1 la1
--- NOTE | 2019-04-08 03:31 | EDPHYS ---
Physician Documentation [facility] Name: Kelley Ordaz Age: 48 yrs Sex: Female : 1970 Arrival Date: 04/07/2019 Time: 23:38 Bed 15 Private MD: Edvin Perez B ED Physician Dwight Leach HPI: 04/08 00:44 This 48 yrs old Female presents to ER via Ambulatory with complaints of Chest jr8 Pain. 00:44 The patient or guardian reports chest pain that is located primarily in the substernal jr8 area. Onset: acutely, 1 hour(s) ago, at 23:00. The pain radiates to back. Associated signs and symptoms: Pertinent positives: headache, nausea, Pertinent negatives: cough, diaphoresis, dizziness, recent travel, shortness of breath, vomiting. The chest pain is described as a heaviness. Duration: The patient or guardian reports a single episode, that is still ongoing, but improving. Modifying factors: The symptoms are alleviated by nothing. the symptoms are aggravated by nothing. Severity of pain: in the emergency department the pain has improved is a 5 / 10. The patient has experienced a previous episode, approximately 5 months ago, but today's symptoms are not as bad as this previous episode, had 2 stents placed at that time. The patient has not recently seen a physician. Chest pain radiating through to back and headache both with sudden onset at 2300 while sitting down on couch. Denies fever, SOB, or cough. 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 LMP N/A - Post-menopause bb Historical: - Allergies: 00:06 Iodine (Respiratory distress); bb - Home Meds: 00:06 Norvasc 5 mg oral tab [Active]; Plavix 75 mg Oral tab 1 tab once daily [Active]; bb ezetimibe oral oral [Active]; Hydrochlorothiazide Oral [Active]; Lipitor Oral [Active]; Metformin Oral [Active]; Nitroglycerin SL [Active]; sertraline oral oral [Active]; Vascepa oral oral [Active]; Vitamin D3 oral oral [Active]; - PMHx: 00:06 Depression; High Cholesterol; Hypertension; CAD; Myocardial infarction; Diverticulitis; bb - PSHx: 00:06 Heart stents; uterine ablation; Carpal Tunnel Repair; Tubal ligation; TURBT; bb - Immunization history:: Adult Immunizations up to date. - Social history:: Smoking status: Patient uses tobacco products, smokes one pack cigarettes per day. Patient uses alcohol, but reports only rare drinking. - Ebola Screening: : No symptoms or risks identified at this time. ROS: 00:44 Constitutional: Negative for fever, chills, and weight loss, Eyes: Negative for injury, jr8 pain, redness, and discharge, ENT: Negative for injury, pain, and discharge, Neck: Negative for injury, pain, and swelling, Respiratory: Negative for shortness of breath, cough, wheezing, and pleuritic chest pain, Back: Negative for injury and pain, MS/Extremity: Negative for injury and deformity, Skin: Negative for injury, rash, and discoloration, Neuro: Negative for headache, weakness, numbness, tingling, and seizure. 00:44 Cardiovascular: Positive for chest pain, Negative for edema, orthopnea, palpitations, paroxysmal nocturnal dyspnea. 00:44 Respiratory: Negative for cough, shortness of breath. 00:44 Abdomen/GI: Positive for nausea, diarrhea, Negative for abdominal pain, vomiting. Exam: 00:44 Constitutional: This is a well developed, well nourished patient who is awake, alert, jr8 and in no acute distress. Head/Face: Normocephalic, atraumatic. Eyes: Pupils equal round and reactive to light, extra-ocular motions intact. Lids and lashes normal. Conjunctiva and sclera are non-icteric and not injected. Cornea within normal limits. Periorbital areas with no swelling, redness, or edema. ENT: Nares patent. No nasal discharge, no septal abnormalities noted. Tympanic membranes are normal and external auditory canals are clear. Oropharynx with no redness, swelling, or masses, exudates, or evidence of obstruction, uvula midline. Mucous membranes moist. Chest/axilla: Normal chest wall appearance and motion. Nontender with no deformity. No lesions are appreciated. Cardiovascular: Regular rate and rhythm with a normal S1 and S2. No gallops, murmurs, or rubs. Normal PMI, no JVD. No pulse deficits. Respiratory: Lungs have equal breath sounds bilaterally, clear to auscultation and percussion. No rales, rhonchi or wheezes noted. No increased work of breathing, no retractions or nasal flaring. Abdomen/GI: Soft, non-tender, with normal bowel sounds. No distension or tympany. No guarding or rebound. No evidence of tenderness throughout. Back: No spinal tenderness. No costovertebral tenderness. Full range of motion. Skin: Warm, dry with normal turgor. Normal color with no rashes, no lesions, and no evidence of cellulitis. MS/ Extremity: Pulses equal, no cyanosis. Neurovascular intact. Full, normal range of motion. Neuro: Awake and alert, GCS 15, oriented to person, place, time, and situation. Cranial nerves II-XII grossly intact. Motor strength 5/5 in all extremities. Sensory grossly intact. Cerebellar exam normal. Normal gait. Vital Signs: 00:05 BP 114 / 57; Pulse 83; Resp 16; Temp 97.5; Pulse Ox 98% on R/A; la1 01:30 BP 97 / 58; Pulse 71; Resp 16; Pulse Ox 95% on R/A; ch 02:55 BP 114 / 49; Pulse 66; Resp 16; Pulse Ox 93% on R/A; la1 MDM: 04/07 23:57 Patient medically screened. 04/08 03:00 The patient was given aspirin in the Emergency Department. Data reviewed: vital signs, [facility] nurses notes, lab test result(s), EKG, radiologic studies, plain films. 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 ED course: Patient hemodynamically stable. Currently pain free and feeling better. X 2 negative troponins. Will d/c home to f/u with smoking pipe maker after the weekend. Knows to come back if worse or something changes. 04/07 23:58 Order name: Basic Metabolic Panel 04/07 23:58 Order name: CBC with Diff 04/07 23:58 Order name: LFT's 04/07 23:58 Order name: Magnesium; Complete Time: 02:[address] [facility] 04/07 23:58 Order name: NT PRO-BNP; Complete Time: 02:59 04/07 23:58 Order name: PT-INR; Complete Time: 02:11 04/07 23:58 Order name: Troponin (emerg Dept Use Only); Complete Time: 02:59 04/07 23:58 Order name: XRAY Chest (1 view) 04/08 02:08 Order name: Basic Metabolic Panel; Complete Time: 02:59 EDMS 04/08 02:08 Order name: CBC with Automated Diff; Complete Time: 02:59 EDMS 04/08 02:08 Order name: Liver (Hepatic) Function; Complete Time: 02:59 EDMS 04/08 02:50 Order name: Troponin (emerg Dept Use Only); Complete Time: 03:29 oh04/07 23:58 Order name: EKG; Complete Time: 02:09 04/07 23:58 Order name: Cardiac monitoring; Complete Time: 00:00 04/07 23:58 Order name: EKG - Nurse/Tech; Complete Time: 00:00 04/07 23:58 Order name: IV Saline Lock; Complete Time: 00:10 04/07 23:58 Order name: Labs collected and sent; Complete Time: 00:10 04/07 23:58 Order name: O2 Per Protocol; Complete Time: 00:01 04/07 23:58 Order name: O2 Sat Monitoring; Complete Time: 00:01 EC:01 Rate is 84 beats/min. Rhythm is regular, Normal Sinus Rhythm with No ectopy. QRS [place] jr8 is Normal. NV interval is normal at 130 msec. QRS interval is normal at 72 msec. QT interval is normal at 458 msec. No Q waves. T waves are Normal. No ST changes noted. Clinical impression: Normal ECG. Interpreted by me. Reviewed by me. Administered Medications: 00:38 Drug: Zofran 4 mg Route: IVP; Site: right antecubital; la1 00:54 Follow up: Response: No adverse reaction la1 00:38 Drug: fentaNYL (PF) 50 mcg Route: IVP; Site: right antecubital; la1 00:55 Follow up: Response: No adverse reaction; Pain is decreased la1 00:39 Drug: Aspirin Chewable Tablet 324 mg Route: PO; la1 00:55 Follow up: Response: No adverse reaction la1 Disposition: 06:40 Co-signature as Attending Physician, Dwight Leach MD I agree with the assessment and tw4 plan of care. Disposition: 04/08/19 03:29 Discharged to Home. Impression: Chest pain, unspecified. - Condition is Stable. - Discharge Instructions: Nonspecific Chest Pain, Chest Pain Observation. - Medication Reconciliation Form, Thank You Letter, Antibiotic Education, Prescription Opioid Use form. - Follow up: Private Physician; When: 1 - 2 days; Reason: Recheck today's complaints, Continuance of care, Re-evaluation by your physician. - Problem is new. - Symptoms have improved. Signatures: Dispatcher [employer] EDMS Sydney Godwin, RN RN Katya Hannah RN RN bb Roszak, Josh, PA PA jr8 Rashi Alvarado RN RN la1 Wadley, Terrence, MD MD tw4 Corrections: (The following items were deleted from the chart) 03:40 03:29 04/08/2019 03:29 Discharged to Home. Impression: Chest pain, unspecified. Condition is Stable. Discharge Instructions: Nonspecific Chest Pain, Chest Pain Observation. Forms are Medication Reconciliation Form, Thank You Letter, Antibiotic Education, Prescription Opioid Use. Follow up: Private Physician; When: 1 - 2 days; Reason: Recheck today's complaints, Continuance of care, Re-evaluation by your physician. Problem is new. Symptoms have improved. jr8
[2019-04-08 05:24] VITALS: TEMP 97.5
[2019-04-08 05:44] VITALS: BP 114/49; O2SAT 93
--- NOTE | 2019-04-08 09:11 | EKG ---
Test Date: 2019-04-07 Test Time: 23:47:02 Energy Specialist: JORGE LUIS MEASUREMENT RESULTS: Intervals: Rate: 84 [place]: 130 QRSD: 72 QT: 388 QTc: 458 [place]: P: 2 [place]: 130 QRS: 18 T: 39 INTERPRETIVE STATEMENTS: Normal sinus rhythm Normal ECG Compared to ECG 11/11/2018 13:09:38 Prolonged QT interval no longer present Electronically Signed On 04-08-19 09:10:35 CDT by Rasheed Romero
--- NOTE | 2019-04-08 12:52 | RAD REPORT ---
EXAM DESCRIPTION: RAD - Chest Single View - 04/08/2019 12:16 am CLINICAL HISTORY: CHEST PAIN Chest pain. COMPARISON: Chest Single View dated 11/11/2018; Chest Pa And Lat (2 Views) dated 02/22/2018; Chest Sing le View dated 12/19/2016; Chest Pa And Lat (2 Views) dated 09/10/2016 FINDINGS: Portable technique limits examination quality. The lungs are grossly clear. The heart is normal in size. No displaced fractures. IMPRESSION: No acute intrathoracic process suspected.
== END 2019-04-08 03:40 | disposition home or self-care (01) ==
LOC: ER 23:35
DX: R07.9 Chest pain, unspecified (principal); R51 Headache; R11.0 Nausea; F32.9 Major depressive disorder, single episode, unspecified; E78.00 Pure hypercholesterolemia, unspecified; I25.2 Old myocardial infarction; I25.10 Atherosclerotic heart disease of native coronary artery without angina pectoris; I10 Essential (primary) hypertension; F17.210 Nicotine dependence, cigarettes, uncomplicated
CPT/HCPCS: 36415; 71045; 80048; 80076; 83735; 83880; 84484; 85025; 85610; 93005; 96374; 96375; 99285; J2405; J3010

== ENCOUNTER 2019-05-08 18:44 | Emergency (ER) | payer OTHER ==
--- OUTSIDE RECORDS SUMMARY | 2019-05-08 18:47 | XMS REPORT | Clinical Summary ---
:1970 Author Organization [facility] Address [address] [place] [address] Care Team Providers Name Role Phone Robert [...] INFLUENZA VACCINE 04/19/2019 Results Not on fileafter 05/07/2018 Advance Directives For more information, please contact: [phone] Type Date Recorded Patient Fire Eater Explanation Advance Directives, Living Will and Medical Power of Engagement Specialist
--- OUTSIDE RECORDS SUMMARY | 2019-05-08 18:48 | XMS REPORT | Continuity of Care Document ---
:1970 Author Organization [facility] Care Team Providers Name Role Phone MD Uriel, Samson Unavailable Unavailable Insurance Providers Payer name Policy type / Coverage type Policy ID Covered libertarian ID Policy Simmons AETNA AETNA Encounters Encounter Performer Location Date Office Visit Samson Trevino MD [facility] Mar 29, 2014 Problems Problem Effective [...] 2013January 17, platelet count PLATELETS 251 K/CMM [phone] /mm3 January 17, hemoglobin, blood HGB 14.9 g/dL 12.0-16.0 2013January 17, hematocrit, blood HCT 43.8 % 36.0-48.0 2013January 17, platelet count PLATELETS 251 K/CMM [phone] /mm3 January 17, cholesterol, serum CHOLESTEROL 271 mg/dl <=199 High 2013January 17, triglyceride, TRIGLYCERIDE 574 mg/dl <=149 High 2013 serum, fasting January 17, HDL cholesterol, HDL 31 mg/dl >=61 Low 2013 serum January 17, LDL cholesterol, LDL See Note <=99 2013 serum mg/dL mg/dl January 17, sodium, serum SODIUM 137 MEQ/L [phone] mmol/L January 17, potassium, serum POTASSIUM 4.6 [...] January 17, sodium, serum SODIUM 137 MEQ/L [phone] mmol/L January 17, potassium, serum POTASSIUM 4.6 [...]
--- OUTSIDE RECORDS SUMMARY | 2019-05-08 18:48 | XMS REPORT | Continuity of Care Document ---
:1970 Author Organization [facility] Care Team Providers Name Role Phone MD Uriel, Samson Unavailable Unavailable Insurance Providers Payer name Policy type / Coverage type Policy ID Covered alliance party ID Policy [employer] AETNA AETNA Encounters Encounter Performer Location Date Office Visit Samson Trevino MD [facility] May 10, 2014 Problems Problem Effective Dates [...] 2013January 17, platelet count PLATELETS 251 K/CMM [phone] /mm3 January 17, hemoglobin, blood HGB 14.9 g/dL 12.0-16.0 2013January 17, hematocrit, blood HCT 43.8 % 36.0-48.0 2013January 17, platelet count PLATELETS 251 K/CMM [phone] /mm3 January 17, cholesterol, serum CHOLESTEROL 271 mg/dl <=199 High 2013January 17, triglyceride, TRIGLYCERIDE 574 mg/dl <=149 High 2013 serum, fasting January 17, HDL cholesterol, HDL 31 mg/dl >=61 Low 2013 serum January 17, LDL cholesterol, LDL See Note <=99 2013 serum mg/dL mg/dl January 17, sodium, serum SODIUM 137 MEQ/L [phone] mmol/L January 17, potassium, serum POTASSIUM 4.6 [...] January 17, sodium, serum SODIUM 137 MEQ/L [phone] mmol/L January 17, potassium, serum POTASSIUM 4.6 [...]
--- OUTSIDE RECORDS SUMMARY | 2019-05-08 18:48 | XMS REPORT | Continuity of Care Document ---
:1970 Author Organization [facility] Care Team Providers Name Role Phone [facility] Unavailable Unavailable Problems Problem Status Onset Classification Date Comments Source Date Reported Discharge Diagnosis: 03/02/2017 Acute UTI 017 [place] ABD PAIN Active [facility] 017 [place] TMJ SYNDROME Active Condition 08/23/2014 [facility] MEDIAL MENISCUS TEAR, Active Condition 08/23/2014 LEFT [facility] Tear of medial Resolved Problem 04/06/2019 Data [facility] meniscus of knee6 014 [facility]. Temporomandibular Resolved Problem 04/06/2019 Data [facility] [id number] 014 migrated Neuro,MH syndrome7 from [facility] on 02/18/15. POLYDIPSIA Active Condition 08/23/2014 [facility] Excessive thirst2 Resolved Problem 04/06/2019 Data [facility] 014 migrated Neuro,[facility] from [facility] on 02/18/15. RHINITIS Inactive Condition 08/23/2014 [...] 04/06/2019 Data [facility] 014 migrated Neuro, from [facility] on 02/18/15. Hypertensive disorder3 Active Problem 04/06/2019 Data [facility] 014 migrated Neuro, from [facility] on 02/18/15. Mixed anxiety and Active Problem [facility]06[facility]4 [facility] Neuro, from [facility] on 02/18/15. Obesity5 Active Problem 04/06/2019 Data [facility] 014 migrated Neuro, from [facility] on 02/18/15. Diabetes Active Problem 04/06/2019 [facility] Diverticulitis Resolved Problem 04/06/2019 [facility] Headache Active Problem 04/06/2019 [facility] Hypercholesterolemia Active Problem 04/06/2019 [facility] Lumbar radiculopathy Active Problem 04/06/2019 [facility] Depression Active Problem 04/06/2019 [facility] Myocardial infarct Active Problem 04/06/2019 [facility] Hypertension Active Problem 03/02/2017 [facility] Medications Medication Details Route Status Patient Ordering [...] 02/28/ hydrochloride 50 MG tab, PO, 2017 [place] Oral Tablet Q6H, PRN Pain, X 3 day, # 12 tab, 0 Refill(s) 24 HR Ciprofloxacin 500 mg=1 Active 500 MG Extended tab, PO, 2017 [place] Release Tablet Daily, X [Cipro] 5 day, # 5 tab, 0 Refill(s) Benadryl 50 mg, Inactive Route: 2016 [place] IVP, ONCE, Dosing Weight 110.455, kg, Priority: STAT, Start date: 02/27/17 19:30:00 CDT, Stop date: 02/27/17 19:30:00 CDT Morphine 4 mg, Inactive Route: 2016 [place] IVP, ONCE, Dosing Weight 110.455, kg, Priority: STAT, Start date: 02/27/17 18:55:00 CDT, Stop date: 02/27/17 18:55:00 CDT Zofran 4 mg, Inactive Route: 2016 [place] IVP, Drug form: INJ, ONCE, Dosing Weight 110.455, kg, Priority: STAT, Start date: 02/27/17 18:55:00 CDT, Stop date: 02/27/17 18:55:00 CDT Saline Flush 0.9% 10 mL, Inactive Route: 2016 [place] IVP, Drug Form: INJ, kg, PRN, PRN [...] PANEL eGFR 95 02/27 Result Comment: The [place] eGFR is calculated using the CKD-EPI formula. [...] ASPARTATE 13 0 - 37 02/27 [facility] [place] CHEM PANEL BUN 10 7 - 22 02/27 [place] CHEM PANEL Creatinine 0.74 0.50 - 02/27 Lvl 1.40 [place] CHEM PANEL ALANINE 28 0 - 65 02/27 MH AMINO [place] ASE CHEM PANEL Albumin Lvl 3.6 3.5 - 5.0 02/27 [place] CHEM PANEL Alk Phos 81 39 - 136 02/27 [place] CHEM PANEL Glucose Lvl 123 70 - 99 02/27 [place] CHEM PANEL Bili Total 0.3 0.2 - 1.3 02/27 [place] CHEM PANEL Sodium Lvl 143 135 - 145 02/27 [place] CHEM PANEL Total Protein 7.9 6.4 - 8.4 02/27 [place] CHEM PANEL Calcium Lvl 8.9 8.5 - 10.5 02/27 [place] CHEM PANEL Chloride Lvl 107 95 - 109 02/27 [place] CHEM PANEL Potassium Lvl 3.9 3.5 - 5.1 02/27 [place] CHEM PANEL CO2 29 24 - 32 02/27 [place] CHEM PANEL A/G Ratio 0.8 0.7 - 1.6 02/27 [place] CHEM PANEL AGAP 10.9 10.0 - 02/27 MH 20.0 [place] CHEM PANEL Globulin 4.3 2.7 - 4.2 02/27 [place] CHEM PANEL B/C Ratio 14 6 - 25 02/27 [place] CHEM PANEL Lipase Lvl 157 73 - 393 02/27 [facility] ENDOCRINOLO hCG Tot 1 02/27 [place] HEMATOLOGY Segs 64.7 45.0 - 02/27 MH 75.0 [place] HEMATOLOGY Lymphocytes # 2.9 1.0 - 5.5 02/27 [place] HEMATOLOGY Basophils # 0.1 0.0 - 0.2 02/27 [place] HEMATOLOGY Eosinophils # 0.4 0.0 - 0.5 02/27 [place] HEMATOLOGY Monocytes # 0.9 0.0 - 0.8 02/27 [place] HEMATOLOGY Segs-Bands # 7.8 1.5 - 8.1 02/27 [place] HEMATOLOGY Eosinophils 3.2 0.0 - 4.0 02/27 [place] HEMATOLOGY Monocytes 7.4 2.0 - 12.0 02/27 [place] HEMATOLOGY Lymphocytes 24.1 20.0 - 06 MH 40.0 /2016 [place] HEMATOLOGY Basophils 0.6 0.0 - 1.0 02/27 MH /2016 [place] HEMATOLOGY Hct 40.4 36.0 - 02/27 MH 48.0 /2016 [place] HEMATOLOGY Hgb 13.9 12.0 - 02/27 MH 16.0 /2016 [place] HEMATOLOGY RBC X 10x6 4.61 4.20 - 02/27 MH 5.40 /2016 [place] HEMATOLOGY WBC X 10x3 12.0 3.7 - 10.4 02/27 [place] HEMATOLOGY MPV 8.1 7.4 - 10.4 02/27 [place] HEMATOLOGY RDW 13.9 11.5 - 02/27 MH 14.5 /2016 [place] HEMATOLOGY Platelet 279 133 - 450 02/27 [place] HEMATOLOGY MCHC 34.5 32.0 - 02/27 MH 36.0 [place] HEMATOLOGY MCH 30.2 27.0 - 02/27 MH 31.0 [place] HEMATOLOGY MCV 87.5 80.0 - 02/27 MH 98.0 [place] URINE AND UA Bacteria Moderate None Seen 02/27 STOOL /HPF /HPF /2016 [place] URINE AND UA Sq Epi Few /LPF Few /LPF 02/27 STOOL /2016 [place] URINE AND UA WBC 11-20 None Seen 02/27 STOOL /HPF /HPF /2016 [place] URINE AND UA RBC 21-50 0 - 2 02/27 STOOL /HPF /2016 [place] URINE AND UA Nitrite See Note Negative 02/27 STOOL (02/27/17 5:29 PM) /2016 [place] URINE AND UA Leuk Est Moderate Negative 02/27 STOOL *ABN* /2016 [place] (02/27/17 5:29 PM) URINE AND UA 4.0 0.1 - 1.0 02/27 STOOL Urobilinogen /2016 [place] URINE AND UA Glucose See Note 1 Negative 02/27 Result [facility]OOL (02/27/17 5:29 PM) /2016 Comment: [place] Unable to determine due to interference from color of urine.
17:57 cg URINE AND UA Ketones Negative Negative 02/27 STOOL *NA* /2016 [place] (02/27/17 5:29 PM) URINE AND UA Bili See Note Negative 02/27 STOOL (02/27/17 5:29 PM) [place] URINE AND UA Blood Large Negative 02/27 STOOL *ABN* /2016 [place] (02/27/17 5:29 PM) URINE AND UA Protein >=300 Negative 02/27 STOOL mg/dL mg/dL [place] URINE AND UA Turbidity Slight Cloudy Clear 02/27 STOOL (02/27/17 5:29 PM) [place] URINE AND UA Spec Grav >=1.030 <=1.030 02/27 STOOL *ABN* /2016 [place] (02/27/17 5:29 PM) URINE AND UA pH 5.5 5.0 - 8.0 02/27 STOOL /2016 [place] URINE AND UA Color [place] Yellow 02/27 STOOL *ABN* /2016 [place] (02/27/17 5:29 PM) URINE CHEM U Preg Negative Negative 02/27 (02/27/17 5:29 PM) [place] Chemistry HGBA1C 5.5 - 5.6 05/10 Medical [...] K/CMM 133 - 450 01/17 [facility] Wet End Helper PAP SMEAR Complete 02/17 [facility] Wet End Helper PAP SMEAR Complete 02/17 [facility] Pathology PAP SMEAR Complete 02/17 [facility] Pathology PAP SMEAR Complete 02/17 [facility] Pathology Reports No Data Provided for This Section Diagnostic Reports Report Value Date Source ED Abdomen/Pelvis IV Study: CT abdomen and pelvis with contrast. 02/27/2017 [facility] contrast only CT HISTORY: Left lower quadrant [...] Value Date Comments Source Weight 118.636 04/03/2019 [facility] Neuro BMI Calculated 42.21 04/03/2019 [facility] Height 167.64 cm 04/03/2019 [facility] Heart Rate 82 04/03/2019 [facility] Respitory Rate 16 04/03/2019 [facility] Systolic (mm Hg) 121 04/03/2019 [facility] Diastolic (mm Hg) 83 04/03/2019 [facility] Systolic (mm Hg) 133 02/28/2017 [facility] Diastolic (mm Hg) 63 02/28/2017 [facility] Respitory Rate 18 02/28/2017 [facility] Temperature Oral (F) 98 F 02/28/2017 [facility] Heart Rate 82 02/28/2017 [facility] Systolic (mm Hg) 142 02/28/2017 [facility] Diastolic (mm Hg) 70 02/28/2017 [facility] Heart Rate 122 02/27/2017 [facility] Systolic (mm Hg) 128 02/27/2017 [facility] Diastolic (mm Hg) 85 02/27/2017 [facility] Temperature Oral (F) 98.6 F 02/27/2017 [facility] Respitory Rate 18 02/27/2017 [facility] Height 167.64 cm 02/27/2017 [facility] BMI Calculated 39.3 02/27/2017 [facility] Weight 110.455 02/27/2017 [facility] Height 65.5 08/23/2014 [facility] Weight 242 [...] Provider Date Date Visit [facility] Report [id number] Samson 01/17 01/17 Srini 6980 [facility] Office [id number] Samson03/29 [place] Visit 1590 [facility] Office [id number] 05/10 [place] Visit 5240 [facility] Lab Report [id number] 05/10 [place] 2930 [facility] Office [id number] Samson 08/23 08/23 Srini Visit 3330 U[place], /2013 [facility] Emergency [id number] Spike 02/27 02/28 Srini Billy /2016 [facility] Outpatient [id number] Ruy 04/03 04/04 [facility] /2018 Neuro [place] [facility] [id number] Ruy 05/18 [facility] Kre Srini Procedures Procedure Code Date Perfomer Comments Source smoking/tobacco 14 08/23/2014 yes Medical cessation, patient Group education and counseling mammogram [id number] 04/19/2013 [facility] vaginal Pap smear 63640 02/17/2013 [facility] Assessment and Plan No Data Provided for This Section Plan of Care No Data Provided for This Section Social History Social History Date Source Social History TypeResponse 04/03/2019 [facility] Employment/School Status: Employed. Work/School description: Smoking Status Current every day smoker; Lives with someone who smokes; Cigarette Smoking Last 365 Days Yes; Reg Smoking Cessation Counseling Yes entered on: 04/03/19 Social History TypeResponse 02/27/2017 [facility] Smoking Status Current every day smoker; Lives with someone who smokes; Cigarette Smoking Last 365 Days Yes; Reg Smoking Cessation Counseling Yes Family History No Data Provided for This Section Advance Directives No Data Provided for This Section Functional Status No Data Provided for This Section
--- OUTSIDE RECORDS SUMMARY | 2019-05-08 18:48 | XMS REPORT | Continuity of Care Document ---
:1970 Author Organization [facility] Care Team Providers Name Role Phone MD Uriel, Samson Unavailable Unavailable Insurance Providers Payer name Policy type / Coverage type Policy ID Covered republican ID Policy Simmons AETNA AETNA Encounters Encounter Performer Location Date Lab Report Samson Trevino MD [facility] [place] January 17, 2014 Problems Problem Effective [...] 2013January 17, platelet count PLATELETS 251 K/CMM [phone] /mm3 January 17, hemoglobin, blood HGB 14.9 g/dL 12.0-16.0 2013January 17, hematocrit, blood HCT 43.8 % 36.0-48.0 2013January 17, platelet count PLATELETS 251 K/CMM [phone] /mm3 January 17, cholesterol, serum CHOLESTEROL 271 mg/dl <=199 High 2013January 17, triglyceride, TRIGLYCERIDE 574 mg/dl <=149 High 2013 serum, fasting January 17, HDL cholesterol, HDL 31 mg/dl >=61 Low 2013 serum January 17, LDL cholesterol, LDL See Note <=99 2013 serum mg/dL mg/dl January 17, sodium, serum SODIUM 137 MEQ/L [phone] mmol/L January 17, potassium, serum POTASSIUM 4.6 [...] January 17, sodium, serum SODIUM 137 MEQ/L [phone] mmol/L January 17, potassium, serum POTASSIUM 4.6 [...]
--- OUTSIDE RECORDS SUMMARY | 2019-05-08 18:49 | XMS REPORT | Continuity of Care Document ---
:1970 Author Organization [facility] Care Team Providers Name Role Phone MD Uriel, Samson Unavailable Unavailable Insurance Providers Payer name Policy type / Coverage type Policy ID Covered constitution party ID Policy Simmons AETNA AETNA Encounters Encounter Performer Location Date Office Visit Samson Trevino MD [facility] Aug 23, 2014 Problems Problem Effective Dates [...] 2013January 17, platelet count PLATELETS 251 K/CMM [phone] /mm3 January 17, hemoglobin, blood HGB 14.9 g/dL 12.0-16.0 2013January 17, hematocrit, blood HCT 43.8 % 36.0-48.0 2013January 17, platelet count PLATELETS 251 K/CMM [phone] /mm3 January 17, cholesterol, serum CHOLESTEROL 271 mg/dl <=199 High 2013January 17, triglyceride, TRIGLYCERIDE 574 mg/dl <=149 High 2013 serum, fasting January 17, HDL cholesterol, HDL 31 mg/dl >=61 Low 2013 serum January 17, LDL cholesterol, LDL See Note <=99 2014 serum mg/dL mg/dl January 17, sodium, serum SODIUM 137 MEQ/L [phone] mmol/L January 17, potassium, serum POTASSIUM 4.6 [...] January 17, sodium, serum SODIUM 137 MEQ/L [phone] mmol/L January 17, potassium, serum POTASSIUM 4.6 [...]
--- OUTSIDE RECORDS SUMMARY | 2019-05-08 18:49 | XMS REPORT | Continuity of Care Document ---
:[address] [facility] Care Team Providers Name Role Phone MD Uriel, Samson Unavailable Unavailable Insurance Providers Payer name Policy type / Coverage type Policy ID Covered libertarian ID Policy [employer] AETNA AETNA Encounters Encounter Performer Location Date Lab Report Samson Trevino MD [facility] May 10, 2014 Problems Problem Effective Dates [...] 2013January 17, platelet count PLATELETS 251 K/CMM [phone] /mm3 January 17, hemoglobin, blood HGB 14.9 g/dL 12.0-16.0 2013January 17, hematocrit, blood HCT 43.8 % 36.0-48.0 2013January 17, platelet count PLATELETS 251 K/CMM [phone] /mm3 January 17, cholesterol, serum CHOLESTEROL 271 mg/dl <=199 High 2013January 17, triglyceride, TRIGLYCERIDE 574 mg/dl <=149 High 2013 serum, fasting January 17, HDL cholesterol, HDL 31 mg/dl >=61 Low 2013 serum January 17, LDL cholesterol, LDL See Note <=99 2013 serum mg/dL mg/dl January 17, sodium, serum SODIUM 137 MEQ/L [phone] mmol/L January 17, potassium, serum POTASSIUM 4.6 [...] January 17, sodium, serum SODIUM 137 MEQ/L [phone] mmol/L January 17, potassium, serum POTASSIUM 4.6 [...]
[2019-05-08 19:36] LABS: Absolute Lymphocytes (CBC) 2.4 K/uL (0.7-4.9); Basophils % 0.7 % (0-1.3); Hematocrit 41.6 % (36.0-45.0); Lymphocytes % 22.2 % (15.3-44.8); MPV 8.8 fL (7.6-11.3); RBC Red Blood Cell Count 4.65 M/uL (3.86-4.86)
[2019-05-08 20:13] LABS: ALT/SGPT 38 U/L (12-78); AST/SGOT 26 U/L (15-37); Albumin 3.5 g/dL (3.4-5.0); Alkaline Phosphatase 103 U/L (45-117); BUN Blood Urea Nitrogen 14 mg/dL (7-18); Bicarbonate 23 mmol/L (21-32); Bilirubin Direct < 0.1 mg/dL (0-0.2); Bilirubin Total 0.4 mg/dL (0.2-1.0); Glucose Level 199 mg/dL (74-106); Lipase 193 U/L (73-393); Potassium 4.2 mmol/L (3.5-5.1); Protein, Total 7.6 g/dL (6.4-8.2); Sodium Level 143 mmol/L (136-145)
[2019-05-08 20:21] LABS: Urine Blood 1+ (NEG); Urine Glucose NEGATIVE (NEG); Urine Protein NEGATIVE (NEG); Urine Specific Gravity 1.025 (1.005-1.030); Urine pH 5.5 (5.0-7.0)
[2019-05-08] MEDS ORDERED: METRONIDAZOLE 500mg IVPB 500 MG/100 ML BAG IV ONE (20:31)
[2019-05-08] MEDS ORDERED: MORPHINE 4 MG/ML SYR ONE ×2 (20:31→23:32)
[2019-05-08] MEDS ORDERED: ONDANSETRON 4 MG/2 ML VIAL ONE ×2 (20:31→22:03)
[2019-05-08] MEDS ORDERED: FAMOTIDINE 20 MG/2 ML VIAL IV ONE (20:31)
[2019-05-08] MEDS ORDERED: CIPROFLOXACIN 400mg IV 400 MG/200 ML BAG IV ONE (20:31)
[2019-05-08] MEDS ORDERED: NA CHLORIDE 0.9% 1,000 ML ONE (20:31)
--- NOTE | 2019-05-08 20:40 | RAD REPORT ---
EXAM DESCRIPTION: RAD - Chest Single View - 05/08/2019 8:26 pm CLINICAL HISTORY: Abdominal pain, abdominal distention COMPARISON: April 08 TECHNIQUE: AP portable chest image was obtained 2023 hours . FINDINGS: Lung volumes are low. This accentuates interstitial pattern. Large body habitus further ac centuates lung markings on a shallow inspiration portable exam. No peripheral mass or consolidation. Cardiomediastinal silhouette is accentuated in this setting. Trachea is midline. No measurable pleura l effusion and no pneumothorax. No acute bony abnormality seen. No acute aortic findings suspected. IMPRESSION: Limited shallow inspiration portable examination. No focal mass or consolidations seen. Mild interstitial edema or infiltrate can be masked.
[2019-05-08 20:57] LABS: Urine Bacteria 20-50 /HPF (<20); Urine Culture Reflex Order NOT NEEDED; Urine RBC NONE SEEN /HPF (NONE SEEN)
[2019-05-08 20:58] LABS: Protime INR 0.89
[2019-05-08 21:22] LABS: Magnesium 2.3 mg/dL (1.8-2.4); NT PRO-BNP 124 pg/mL (<125); Troponin (Emerg Dept Use Only) < 0.02 ng/mL (0.0-0.045)
--- NOTE | 2019-05-08 23:24 | ER ---
Nurse's Notes [facility] Name: Kelley Ordaz Age: 48 yrs Sex: Female : 1970 Arrival Date: 05/08/2019 Time: 18:47 Bed 28 Private MD: Diagnosis: Abdominal tenderness;Urinary tract infection, site not specified;Diverticular disease of intestine Presentation: 05/08 18:47 Presenting complaint: Patient states: i think its my diverticulitis again, i have a hj stomach pain on my R side that moves to my L side area, that started last night, denies fever and chills; reports diarrhea;. Transition of care: patient was not received from another setting of care. Onset of symptoms was May 08, 2019. Risk Assessment: Do you want to hurt yourself or someone else? Patient reports no desire to harm self or others. Initial Sepsis Screen: Does the patient meet any 2 criteria? No. Patient's initial sepsis screen is negative. Does the patient have a suspected source of infection? No. Patient's initial sepsis screen is negative. Care prior to arrival: None. 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 Historical: - Allergies: 18:49 Iodine (Respiratory distress); hj - Home Meds: 23:38 ezetimibe Oral [Active]; Hydrochlorothiazide Oral [Active]; Lipitor Oral [Active]; mg2 Metformin Oral [Active]; Nitroglycerin SL [Active]; Norvasc 5 mg Oral tab [Active]; Plavix 75 mg Oral tab 1 tab once daily [Active]; sertraline Oral [Active]; Vascepa Oral [Active]; Vitamin D3 Oral [Active]; - PMHx: 18:49 CAD; Depression; Diverticulitis; High Cholesterol; Hypertension; Myocardial infarction; hj - PSHx: 18:49 Heart stents; uterine ablation; Carpal Tunnel Repair; Tubal ligation; TURBT; hj - Immunization history:: Flu vaccine status is unknown. - Social history:: Smoking status: unknown. - Family history:: not pertinent. - Ebola Screening: : No symptoms or risks identified at this time. Screenin:36 Abuse screen: Denies threats or abuse. Denies injuries from another. Nutritional mg2 screening: No deficits noted. Tuberculosis screening: No symptoms or risk factors identified. Fall Risk IV access (20 points). Assessment: 19:30 General: Appears in no apparent distress. comfortable, Behavior is calm, cooperative, rr5 appropriate for age. 19:30 Pain: Complains of pain in abdomen Pain does not radiate. Pain currently is 8 out of 10 rr5 on a pain scale. Quality of pain is described as aching, Pain began gradually, Is intermittent. Neuro: Level of Consciousness is awake, alert, obeys commands, Oriented to person, place, time, situation, none. Cardiovascular: Capillary refill < 3 seconds Patient's skin is warm and dry. Respiratory: Airway is patent Respiratory effort is even, unlabored, Respiratory pattern is regular, symmetrical. GI: Abdomen is obese, Abdomen is tender to palpation Reports lower abdominal pain, upper abdominal pain, nausea, vomiting. GI: Bowel sounds present X 4 quads. : No signs and/or symptoms were reported regarding the genitourinary system. EENT: No signs and/or symptoms were reported regarding the EENT system. Derm: Skin is intact, is healthy with good turgor, Skin is pink, warm \T\ dry. normal. Musculoskeletal: Circulation, motion, and sensation intact. Capillary refill < 3 seconds. 20:30 Reassessment: Patient appears in no apparent distress at this time. Patient and/or rr5 family updated on plan of care and expected duration. Pain level reassessed. Patient is alert, oriented x 3, equal unlabored respirations, skin warm/dry/pink. 21:15 Reassessment: Patient appears in no apparent distress at this time. Patient is alert, rr5 oriented x 3, equal unlabored respirations, skin warm/dry/pink. awaiting for result. Patient states feeling better. Patient states symptoms have improved. 22:15 Reassessment: Patient appears in no apparent distress at this time. before en route to rr5 CT scan patient complaint of nausea. ED provider informed with order made and carried out. 23:15 Reassessment: Patient appears in no apparent distress at this time. Patient is alert, rr5 oriented x 3, equal unlabored respirations, skin warm/dry/pink. awaiting for result Patient states feeling better. Patient states symptoms have improved. 23:23 General: Appears in no apparent distress. comfortable, Behavior is calm, cooperative. mg2 Pain: Complains of pain in abdomen. 23:35 Neuro: Level of Consciousness is awake, alert, obeys commands, Oriented to person, mg2 place, time, situation. Cardiovascular: Capillary refill < 3 seconds Patient's skin is warm and dry. Respiratory: Airway is patent Respiratory effort is even, unlabored, Respiratory pattern is regular, symmetrical. GI: Bowel sounds present X 4 quads. Abd is soft and non tender Reports lower abdominal pain, upper abdominal pain, nausea. : No signs and/or symptoms were reported regarding the genitourinary system. : Urine is pls see urine dip. EENT: No signs and/or symptoms were reported regarding the EENT system. Derm: Skin is intact, is healthy with good turgor, Skin is pink, warm \T\ dry. normal. Musculoskeletal: Circulation, motion, and sensation intact. Capillary refill < 3 seconds. 23:42 Reassessment: Patient appears in no apparent distress at this time. complaining of rr5 abdominal cramping pain score 7/10. ED provider aware with order made and carried out. 05/09 00:25 Reassessment: Patient appears in no apparent distress at this time. Patient is alert, rr5 oriented x 3, equal unlabored respirations, skin warm/dry/pink. discharge instruction given and explained without complaints made. Patient denies pain at this time. Patient states feeling better. Patient states symptoms have improved. Vital Signs: 05/08 18:50 BP 144 / 75; Pulse 90; Resp 18; Temp 98.9(TE); Pulse Ox 98% on R/A; Weight 118.84 kg; Height 5 ft. 5 in. (165.10 cm); Pain 6/10; 19:32 BP 136 / 59 RA (auto/lg); Pulse 80; Resp 18; Pulse Ox 97% on R/A; Pain 7/10; lt1 20:30 BP 136 / 75; Pulse 85; Resp 17; Pulse Ox 99% on R/A; rr5 21:30 BP 131 / 64; Pulse 79; Resp 17; Pulse Ox 100% on R/A; Pain 3/10; rr5 22:15 BP 123 / 68; Pulse 80; Resp 17; Pulse Ox 98% on R/A; rr5 23:00 BP 125 / 49; Pulse 76; Resp 15; Pulse Ox 99% on R/A; Pain 3/10; rr5 23:41 BP 121 / 66; Pulse 71; Resp 18; Temp 98.4; Pulse Ox 96% on R/A; Pain 8/10; rr5 18:50 Body Mass Index 43.60 (118.84 kg, 165.10 cm) ED Course: 18:47 Patient arrived in ED. hj 18:49 Triage completed. hj 18:50 Arm band placed on left wrist. hj 19:23 Jermaine Brock, ABI is Primary Nurse. rr5 19:30 Navneet Taylor MD is Attending Physician. [facility] 19:30 No provider procedures requiring assistance completed. Inserted saline lock: 20 gauge mg2 in left forearm, using aseptic technique. Blood collected. 19:33 Bed in low position. Call light in reach. Side rails up X 1. Warm blanket given. Pillow lt1 given. Verbal reassurance given. Pulse ox on. NIBP on. 19:33 Patient maintains SpO2 saturation greater than 95% on room air. lt1 20:25 XRAY Chest (1 view) In Process Unspecified. EDMS 22:26 Abdomen In Process Unspecified. EDMS 08 00:25 IV discontinued, intact, bleeding controlled, No redness/swelling at site. Pressure rr5 dressing applied. Administered Medications: 05/08 20:40 Drug: NS 0.9% 1000 ml Route: IV; Rate: 1 bolus; Site: left antecubital; rr5 22:50 Follow up: Response: No adverse reaction; IV Status: Completed infusion; IV Intake: rr5 1000ml 20:41 Drug: Pepcid 20 mg Route: IVP; Site: left antecubital; rr5 21:40 Follow up: Response: No adverse reaction rr5 20:42 Drug: Zofran 4 mg Route: IVP; Site: left antecubital; rr5 21:40 Follow up: Response: No adverse reaction rr5 20:45 Drug: morphine 4 mg {Note: rass 0.} Route: IVP; Site: left antecubital; rr5 21:45 Follow up: Response: No adverse reaction; RASS: Alert and Calm (0) rr5 20:52 Drug: Cipro 400 mg Volume: 200 ml; Route: IVPB; Infused Over: 60 mins; Site: left rr5 antecubital; 21:50 Follow up: Response: No adverse reaction; IV Status: Completed infusion; IV Intake: rr5 200ml 21:51 Drug: Flagyl 500 mg Volume: 100 ml; Route: IVPB; Rate: 200 ml/hr; Infused Over: 30 rr5 mins; Site: left antecubital; 22:20 Follow up: Response: No adverse reaction; IV Status: Completed infusion; IV Intake: rr5 100ml 22:20 Drug: Zofran 4 mg Route: IVP; Site: left antecubital; rr5 23:20 Follow up: Response: No adverse reaction rr5 23:39 Drug: morphine 4 mg {Note: rass 0.} Route: IVP; Site: left antecubital; rr5 05/09 00:30 Follow up: Response: No adverse reaction; RASS: Alert and Calm (0) rr5 Intake: 05/08 21:50 IV: 200ml; Total: 200ml. rr5 22:20 IV: 100ml; Total: 300ml. rr5 22:50 IV: 1000ml; Total: 1300ml. rr5 Outcome: 23:24 Discharge ordered by MD. jean 05/09 00:25 Discharged to home via wheelchair, with family. rr5 Condition: stable Discharge instructions given to patient, family, Instructed on discharge instructions, follow up and referral plans. medication usage, Demonstrated understanding of instructions, follow-up care, medications, Prescriptions given X 5x 00:30 Patient left the ED. rr5 Signatures: Dispatcher [employer] EDMS Navneet Taylor MD MD cha Joaquin, Henry, RN RN hj Gardose, Michele, RN RN [facility] [place] Jermaine Brock RN RN rr5 Saige Craig 1 Corrections: (The following items were deleted from the chart) 05/08 18:50 18:47 Presenting complaint: Patient states: i think its my diverticulitis again, i have hj a stomach pain on my L side that moves to my R side area, denies fever and chills; hj 18:53 18:50 Pulse 90bpm; Resp 18bpm; Pulse Ox 98% RA; Temp 98.9F Temporal; 118.84 kg; Height hj 5 ft. 5 in.; BMI: 43.6; Pain 6/10; hj 23:51 23:41 BP 121 / 66; Pulse 71bpm; Resp 18bpm; Pulse Ox 96% RA; Temp 98.4F; Pain 1/10; mg2 rr5
--- NOTE | 2019-05-08 23:25 | EDPHYS ---
Physician Documentation [facility] Name: Kelley Ordaz Age: 48 yrs Sex: Female : 1970 Arrival Date: 05/08/2019 Time: 18:47 Bed 28 Private MD: ED Physician Navneet Taylor HPI: 05/08 20:16 This 48 yrs old Female presents to ER via Ambulatory with complaints of ted Abdominal Pain. 20:16 The patient presents with abdominal pain in the lower abdomen, abdominal distention in ted the upper abdomen, in the lower abdomen. Onset: The symptoms/episode began/occurred 2 day(s) ago. The symptoms radiate to right lower quadrant and left lower quadrant. Associated signs and symptoms: Pertinent positives: diarrhea. The symptoms are described as crampy. Modifying factors: The symptoms are alleviated by nothing, the symptoms are aggravated by movement, pressure. Severity of pain: At its worst the pain was moderate in the emergency department the pain is unchanged. The patient has not experienced similar symptoms in the past. 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 Historical: - Allergies: 18:49 Iodine (Respiratory distress); hj - Home Meds: 23:38 ezetimibe Oral [Active]; Hydrochlorothiazide Oral [Active]; Lipitor Oral [Active]; mg2 Metformin Oral [Active]; Nitroglycerin SL [Active]; Norvasc 5 mg Oral tab [Active]; Plavix 75 mg Oral tab 1 tab once daily [Active]; sertraline Oral [Active]; Vascepa Oral [Active]; Vitamin D3 Oral [Active]; - PMHx: 18:49 CAD; Depression; Diverticulitis; High Cholesterol; Hypertension; Myocardial infarction; hj - PSHx: 18:49 Heart stents; uterine ablation; Carpal Tunnel Repair; Tubal ligation; TURBT; hj - Immunization history:: Flu vaccine status is unknown. - Social history:: Smoking status: unknown. - Family history:: not pertinent. - Ebola Screening: : No symptoms or risks identified at this time. ROS: 20:16 Constitutional: Negative for fever, chills, and weight loss, Eyes: Negative for injury, ted pain, redness, and discharge, ENT: Negative for injury, pain, and discharge, Neck: Negative for injury, pain, and swelling, Cardiovascular: Negative for chest pain, palpitations, and edema, Respiratory: Negative for shortness of breath, cough, wheezing, and pleuritic chest pain, Back: Negative for injury and pain, : Negative for injury, bleeding, discharge, and swelling, MS/Extremity: Negative for injury and deformity, Skin: Negative for injury, rash, and discoloration, Neuro: Negative for headache, weakness, numbness, tingling, and seizure, Psych: Negative for depression, anxiety, suicide ideation, homicidal ideation, and hallucinations, Allergy/Immunology: Negative for hives, rash, and allergies, Endocrine: Negative for neck swelling, polydipsia, polyuria, polyphagia, and marked weight changes, Hematologic/Lymphatic: Negative for swollen nodes, abnormal bleeding, and unusual bruising. 20:16 Abdomen/GI: Positive for abdominal pain, abdominal distension, of the right lower quadrant and left lower quadrant. Exam: 20:16 Constitutional: This is a well developed, well nourished patient who is awake, alert, ted and in no acute distress. Head/Face: Normocephalic, atraumatic. Eyes: Pupils equal round and reactive to light, extra-ocular motions intact. Lids and lashes normal. Conjunctiva and sclera are non-icteric and not injected. Cornea within normal limits. Periorbital areas with no swelling, redness, or edema. ENT: Nares patent. No nasal discharge, no septal abnormalities noted. Tympanic membranes are normal and external auditory canals are clear. Oropharynx with no redness, swelling, or masses, exudates, or evidence of obstruction, uvula midline. Mucous membranes moist. Neck: Trachea midline, no thyromegaly or masses palpated, and no cervical lymphadenopathy. Supple, full range of motion without nuchal rigidity, or vertebral point tenderness. No Meningismus. Chest/axilla: Normal chest wall appearance and motion. Nontender with no deformity. No lesions are appreciated. Cardiovascular: Regular rate and rhythm with a normal S1 and S2. No gallops, murmurs, or rubs. Normal PMI, no JVD. No pulse deficits. Respiratory: Lungs have equal breath sounds bilaterally, clear to auscultation and percussion. No rales, rhonchi or wheezes noted. No increased work of breathing, no retractions or nasal flaring. Back: No spinal tenderness. No costovertebral tenderness. Full range of motion. Female : Normal external genitalia. Skin: Warm, dry with normal turgor. Normal color with no rashes, no lesions, and no evidence of cellulitis. MS/ Extremity: Pulses equal, no cyanosis. Neurovascular intact. Full, normal range of motion. Neuro: Awake and alert, GCS 15, oriented to person, place, time, and situation. Cranial nerves II-XII grossly intact. Motor strength 5/5 in all extremities. Sensory grossly intact. Cerebellar exam normal. Normal gait. Psych: Awake, alert, with orientation to person, place and time. Behavior, mood, and affect are within normal limits. 20:16 Abdomen/GI: Inspection: distension, that is mild, that is moderate, gravid appearance, ia not appreciated, obese Vital Signs: 18:50 BP 144 / 75; Pulse 90; Resp 18; Temp 98.9(TE); Pulse Ox 98% on R/A; Weight 118.84 kg; hj Height 5 ft. 5 in. (165.10 cm); Pain 6/10; 19:32 BP 136 / 59 RA (auto/lg); Pulse 80; Resp 18; Pulse Ox 97% on R/A; Pain 7/10; lt1 20:30 BP 136 / 75; Pulse 85; Resp 17; Pulse Ox 99% on R/A; rr5 21:30 BP 131 / 64; Pulse 79; Resp 17; Pulse Ox 100% on R/A; Pain 3/10; rr5 22:15 BP 123 / 68; Pulse 80; Resp 17; Pulse Ox 98% on R/A; rr5 23:00 BP 125 / 49; Pulse 76; Resp 15; Pulse Ox 99% on R/A; Pain 3/10; rr5 23:41 BP 121 / 66; Pulse 71; Resp 18; Temp 98.4; Pulse Ox 96% on R/A; Pain 8/10; rr5 18:50 Body Mass Index 43.60 (118.84 kg, 165.10 cm) MDM: 19:30 Patient medically screened. [facility] 20:18 Data reviewed: vital signs, nurses notes, lab test result(s), EKG, radiologic studies, [facility] CT scan, plain films. 05/08 19:06 Order name: Basic Metabolic Panel; Complete Time: 20:15 mg2 05/08 19:06 Order name: CBC with Diff; Complete Time: 20:15 mg2 05/08 19:06 Order name: Creatinine for Radiology; Complete Time: 20:15 mg2 05/08 19:06 Order name: Hepatic Function; Complete Time: 20:15 mg2 05/08 19:06 Order name: Lipase; Complete Time: 20:15 mg2 05/08 19:36 Order name: Urine Dipstick--Ancillary (enter results); Complete Time: 21:06 mw2 05/08 19:36 Order name: Urine --Ancillary (enter results); Complete Time: 21:06 mw2 05/08 19:54 Order name: Urine Microscopic Only; Complete Time: 21:06 rr5 05/08 20:14 Order name: Magnesium; Complete Time: 21:54 ted 05/08 20:14 Order name: NT PRO-BNP; Complete Time: 21:54 ted 05/08 20:14 Order name: PT-INR; Complete Time: 21:06 ted 05/08 20:14 Order name: Troponin (emerg Dept Use Only); Complete Time: 21:54 ted 05/08 20:14 Order name: XRAY Chest (1 view); Complete Time: 21:06 ted 05/08 21:10 Order name: Urine Culture [facility] 05/08 19:06 Order name: IV Saline Lock; Complete Time: 19:30 mg2 05/08 19:06 Order name: Labs collected and sent; Complete Time: 19:30 mg2 05/08 20:14 Order name: EKG; Complete Time: 20:15 ted 05/08 20:14 Order name: Cardiac monitoring; Complete Time: 21:30 ted 05/08 20:14 Order name: EKG - Nurse/Tech; Complete Time: 21:30 ted 05/08 20:14 Order name: O2 Per Protocol; Complete Time: 21:08 ted 05/08 20:25 Order name: Abdomen EDMS 05/08 20:14 Order name: O2 Sat Monitoring; Complete Time: 21:08 ted Administered Medications: 20:40 Drug: NS 0.9% 1000 ml Route: IV; Rate: 1 bolus; Site: left antecubital; rr5 22:50 Follow up: Response: No adverse reaction; IV Status: Completed infusion; IV Intake: rr5 1000ml 20:41 Drug: Pepcid 20 mg Route: IVP; Site: left antecubital; rr5 21:40 Follow up: Response: No adverse reaction rr5 20:42 Drug: Zofran 4 mg Route: IVP; Site: left antecubital; rr5 21:40 Follow up: Response: No adverse reaction rr5 20:45 Drug: morphine 4 mg {Note: rass 0.} Route: IVP; Site: left antecubital; rr5 21:45 Follow up: Response: No adverse reaction; RASS: Alert and Calm (0) rr5 20:52 Drug: Cipro 400 mg Volume: 200 ml; Route: IVPB; Infused Over: 60 mins; Site: left rr5 antecubital; 21:50 Follow up: Response: No adverse reaction; IV Status: Completed infusion; IV Intake: rr5 200ml 21:51 Drug: Flagyl 500 mg Volume: 100 ml; Route: IVPB; Rate: 200 ml/hr; Infused Over: 30 rr5 mins; Site: left antecubital; 22:20 Follow up: Response: No adverse reaction; IV Status: Completed infusion; IV Intake: rr5 100ml 22:20 Drug: Zofran 4 mg Route: IVP; Site: left antecubital; rr5 23:20 Follow up: Response: No adverse reaction rr5 23:39 Drug: morphine 4 mg {Note: rass 0.} Route: IVP; Site: left antecubital; rr5 05/09 00:30 Follow up: Response: No adverse reaction; RASS: Alert and Calm (0) rr5 Disposition: 05/08/19 23:24 Discharged to Home. Impression: Abdominal tenderness, Urinary tract infection, site not specified, Diverticular disease of intestine. - Condition is Stable. - Discharge Instructions: Abdominal Pain, Adult, Dysuria, Nausea and Vomiting, Adult, Urinary Tract Infection, Adult, Abdominal Pain, Adult, Pzmp-on-Eule. - Prescriptions for Bentyl 20 mg Oral Tablet - take 1 tablet by ORAL route every 6 hours As needed; 20 tablet. Flagyl 500 mg Oral Tablet - take 1 tablet by ORAL route every 6 hours for 7 days; 28 tablet. Pepcid 20 mg Oral Tablet - take 1 tablet by ORAL route every 12 hours for 10 days; 20 tablet. Zofran 4 mg Oral Tablet - take 1 tablet by ORAL route every 12 hours As needed; 20 tablet. Cipro 500 mg Oral Tablet - take 1 tablet by ORAL route every 12 hours for 7 days; 14 tablet. - Medication Reconciliation Form, Thank You Letter, Antibiotic Education, Prescription Opioid Use form. - Follow up: Private Physician; When: 2 - 3 days; Reason: Recheck today's complaints, Continuance of care, Re-evaluation by your physician. - Problem is new. - Symptoms have improved. Signatures: Dispatcher [employer] [facility] Navneet Taylor MD MD cha Joaquin, Henry RN RN Malvin Aguilar RN RN [facility] [place] Jermaine Brock RN RN rr5 Corrections: (The following items were deleted from the chart) 05/08 20:25 20:16 Abdomen Pelvis W [id number].[id number] ordered. [facility] 05/09 00:30 05/08 23:24 05/08/2019 23:24 Discharged to Home. Impression: Abdominal tenderness; rr5 Urinary tract infection, site not specified; Diverticular disease of intestine. Condition is Stable. Forms are Medication Reconciliation Form, Thank You Letter, Antibiotic Education, Prescription Opioid Use. Follow up: Private Physician; When: 2 - 3 days; Reason: Recheck today's complaints, Continuance of care, Re-evaluation by your physician. Problem is new. Symptoms have improved. ted
[2019-05-09 01:59] VITALS: BP 121/66; TEMP 98.4; O2SAT 96
--- NOTE | 2019-05-09 07:46 | EKG ---
Test Date: 2019-05-08 Test Time: 21:23:46 Machine Filler: MITZY MEASUREMENT RESULTS: Intervals: Rate: 74 IN: 132 QRSD: 74 QT: 418 QTc: 463 [place]: P: 3 IN: 132 QRS: 40 T: 25 INTERPRETIVE STATEMENTS: Normal sinus rhythm Nonspecific T wave abnormality Prolonged QT Abnormal ECG Compared to ECG 04/07/2019 23:47:02 T-wave abnormality now present Prolonged QT interval now present Electronically Signed On 05-09-19 07:45:20 CDT by Amaury Fabian
--- NOTE | 2019-05-09 11:12 | RAD REPORT ---
EXAM DESCRIPTION: Abdomen Pelvis Wo Contrast CLINICAL HISTORY: 48 years Female ABD PAIN TECHNIQUE: Contiguous axial images obtained through the abdomen and pelvis oral intravenous contrast administration. Coronal and sagittal reformatted images provided. This CT exam was performed according to our departmental dose-optimization program, which includes on e or more of the following dose reduction techniques: automated exposure control, adjustment of the m A and/or kV according to patient size, and/or use of iterative reconstruction technique. COMPARISON: No prior exams provided for comparison. FINDINGS: There is sigmoid diverticulosis without diverticulitis, bowel inflammation, obstruction, f ree intraperitoneal air, or ascites. The appendix is normal. There is steatosis of the liver, which is moderately enlarged without focal lesion on this noncontras t study. Mild splenomegaly without focal lesion. The lung bases, biliary tree, gallbladder, pancreas, adrenal glands, uterus, ovaries, and urinary marco dder are normal. Single punctate nonobstructing intrarenal calculus on the right. No hydronephrosis on either side. No acute osseous abnormality. IMPRESSION: No acute abdominal or pelvic abnormalities. Sigmoid diverticulosis without diverticuliti s. Steatosis of the liver with hepatosplenomegaly. Electronically signed by: Lindy Rubio MD 05/08/2019 10:45 PM CDT Due to temporary technical issues with the PACS/Fluency reporting system, reports are being signed by the in house radiologist as a courtesy to ensure prompt reporting. The interpreting radiologist is jesus purdy responsible for the content of the report.
== END 2019-05-09 00:30 | disposition home or self-care (01) ==
LOC: ER 18:44
DX: K57.90 Diverticulosis of intestine, part unspecified, without perforation or abscess without bleeding (principal); N39.0 Urinary tract infection, site not specified; I10 Essential (primary) hypertension; I25.2 Old myocardial infarction; E78.00 Pure hypercholesterolemia, unspecified; I25.10 Atherosclerotic heart disease of native coronary artery without angina pectoris; Z91.09 Other allergy status, other than to drugs and biological substances
CPT/HCPCS: 93005; 87088; 85025; 87086; 80048; 36415; 83735; 81025; 85610; 80076; 84484; 83690; 83880; 74176; 71045; J7030; J2405 ×2; J0744; 81003; 81015; 96361; 96365; 96367; 96375; 99284

== ENCOUNTER 2019-06-21 10:11 | Inpatient (IN) | payer OTHER ==
--- NOTE | 2019-06-21 10:42 | EDPHYS ---
Physician Documentation [facility] Name: Kelley Ordaz Age: 48 yrs Sex: Female : 1970 Arrival Date: 06/21/2019 Time: 10:14 Bed 6 Private MD: Edvin Perez B ED Physician Navneet Taylor HPI: 06/21 10:33 This 48 yrs old Female presents to ER via Ambulatory with complaints of Chest ted Tightness, High Blood Pressure, Dizziness. 10:33 The patient or guardian reports chest pain that is located primarily in the substernal ted area, anterior chest wall. Onset: just prior to arrival. The pain does not radiate. Associated signs and symptoms: Pertinent positives: dizziness. The chest pain is described as a heaviness, a pressure. Modifying factors: The symptoms are alleviated by nothing. the symptoms are aggravated by nothing. Severity of pain: At its worst the pain was mild in the emergency department the pain is unchanged. 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 - Social history:: Smoking status: Patient uses tobacco products, smokes one pack cigarettes per day. - Ebola Screening: : No symptoms or risks identified at this time. ROS: 10:36 Constitutional: Negative for fever, chills, and weight loss, Eyes: Negative for injury, ted pain, redness, and discharge, ENT: Negative for injury, pain, and discharge, Neck: Negative for injury, pain, and swelling, Respiratory: Negative for shortness of breath, cough, wheezing, and pleuritic chest pain, Abdomen/GI: Negative for abdominal pain, nausea, vomiting, diarrhea, and constipation, Back: Negative for injury and pain, : Negative for injury, bleeding, discharge, and swelling, MS/Extremity: Negative for injury and deformity, Skin: Negative for injury, rash, and discoloration, Neuro: Negative for headache, weakness, numbness, tingling, and seizure, Psych: Negative for depression, anxiety, suicide ideation, homicidal ideation, and hallucinations, Allergy/Immunology: Negative for hives, rash, and allergies, Endocrine: Negative for neck swelling, polydipsia, polyuria, polyphagia, and marked weight changes, Hematologic/Lymphatic: Negative for swollen nodes, abnormal bleeding, and unusual bruising. 10:36 Cardiovascular: Positive for chest pain. 10:36 Neuro: Positive for dizziness. Exam: 10:36 Constitutional: This is a well developed, well nourished patient who is awake, alert, ted and in no acute distress. Head/Face: Normocephalic, atraumatic. Eyes: Pupils equal round and reactive to light, extra-ocular motions intact. Lids and lashes normal. Conjunctiva and sclera are non-icteric and not injected. Cornea within normal limits. Periorbital areas with no swelling, redness, or edema. ENT: Nares patent. No nasal discharge, no septal abnormalities noted. Tympanic membranes are normal and external auditory canals are clear. Oropharynx with no redness, swelling, or masses, exudates, or evidence of obstruction, uvula midline. Mucous membranes moist. Neck: Trachea midline, no thyromegaly or masses palpated, and no cervical lymphadenopathy. Supple, full range of motion without nuchal rigidity, or vertebral point tenderness. No Meningismus. Chest/axilla: Normal chest wall appearance and motion. Nontender with no deformity. No lesions are appreciated. Cardiovascular: Regular rate and rhythm with a normal S1 and S2. No gallops, murmurs, or rubs. Normal PMI, no JVD. No pulse deficits. Respiratory: Lungs have equal breath sounds bilaterally, clear to auscultation and percussion. No rales, rhonchi or wheezes noted. No increased work of breathing, no retractions or nasal flaring. Abdomen/GI: Soft, non-tender, with normal bowel sounds. No distension or tympany. No guarding or rebound. No evidence of tenderness throughout. Back: No spinal tenderness. No costovertebral tenderness. Full range of motion. Skin: Warm, dry with normal turgor. Normal color with no rashes, no lesions, and no evidence of cellulitis. MS/ Extremity: Pulses equal, no cyanosis. Neurovascular intact. Full, normal range of motion. Neuro: Awake and alert, GCS 15, oriented to person, place, time, and situation. Cranial nerves II-XII grossly intact. Motor strength 5/5 in all extremities. Sensory grossly intact. Cerebellar exam normal. Normal gait. Psych: Awake, alert, with orientation to person, place and time. Behavior, mood, and affect are within normal limits. 10:36 Musculoskeletal/extremity: DVT Exam: No signs of deep vein thrombosis. no pain, no swelling, no tenderness, negative Homans' sign noted on exam, no appreciated bluish discoloration, no erythema, no increased warmth. Vital Signs: 10:23 BP 155 / 92; Pulse 79; Resp 16; Temp 98.0(TE); Pulse Ox 98% on R/A; Weight 117.93 kg; ss Height 5 ft. 6 in. (167.64 cm); Pain 6/10; 11:22 BP 126 / 56; Pulse 68; Resp 16; Pulse Ox 98% on R/A; iw 10:23 Body Mass Index 41.96 (117.93 kg, 167.64 cm) ss MDM: 10:20 Patient medically screened. [facility] [place] 10:37 Data reviewed: vital signs, nurses notes, lab test result(s), EKG, radiologic studies, ted plain films. 06/21 10:20 Order name: Basic Metabolic Panel; Complete Time: 11:54 sv 06/21 10:20 Order name: CBC with Diff; Complete Time: 11:54 06/21 10:20 Order name: LFT's; Complete Time: 11:54 sv 06/21 10:20 Order name: Magnesium; Complete Time: 11:54 sv 06/21 10:20 Order name: NT PRO-BNP; Complete Time: 11:54 sv 06/21 10:20 Order name: PT-INR; Complete Time: 11:54 sv 06/21 10:20 Order name: Troponin (emerg Dept Use Only); Complete Time: 11:54 sv 06/21 10:20 Order name: XRAY Chest (1 view); Complete Time: 11:54 sv 06/21 10:21 Order name: Lipase; Complete Time: 11:54 [facility] [place] 06/21 10:21 Order name: Urine Culture [facility] [place] 06/21 10:38 Order name: CT Head Brain wo Cont; Complete Time: 11:54 [facility] [place] 06/21 11:12 Order name: Urine Dipstick--Ancillary (enter results) 06/21 11:56 Order name: US Abdomen Limited [facility] [place] 06/21 10:20 Order name: EKG; Complete Time: 10:21 sv 06/21 10:20 Order name: Cardiac monitoring; Complete Time: 10:25 sv 06/21 10:20 Order name: EKG - Nurse/Tech; Complete Time: 10:25 sv 06/21 10:20 Order name: IV Saline Lock; Complete Time: 11:18 sv 06/21 10:20 Order name: Labs collected and sent; Complete Time: 11:18 sv 06/21 10:20 Order name: O2 Per Protocol; Complete Time: 10:25 sv 06/21 10:20 Order name: O2 Sat Monitoring; Complete Time: 10:25 sv 06/21 12:01 Order name: NPO EDIN 06/21 12:22 Order name: Abdomen EDIN 06/21 12:50 Order name: US [facility] 06/21 10:21 Order name: Urine Dipstick-Ancillary (obtain specimen); Complete Time: 12:28 [facility] [place] Administered Medications: 11:18 Drug: Lovenox 100 mg Route: Sub-Q; Site: right lower abdomen; iw 11:18 Drug: morphine 2 mg Route: IVP; Site: right antecubital; iw 11:18 Drug: Zofran 4 mg Route: IVP; Site: right antecubital; iw 11:18 Drug: Pepcid 20 mg Route: IVP; Site: right antecubital; iw 11:25 Not Given (pt took metoprolol at home 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 Preliminary diagnosis are Chest pain, unspecified, Dizziness and giddiness, Essential (primary) hypertension, Type 2 diabetes mellitus. - Bed requested for Telemetry/MedSurg (observation). - Status is Observation. iw - Condition is Fair. - Problem is new. - Symptoms have improved. UTI on Admission? No Signatures: Dispatcher [employer] EDMS Mariposa Zamarripa Stephanie, RN RN sv Anderson, Corey, MD MD cha Williams, Kenzie, ABI RN iw Shantal Le, ABI RN ss Corrections: (The following items were deleted from the chart) 12:04 10:40 Hospitalization Ordered by Geneva Person MD for Observation. Preliminary diagnosis bd is Chest pain, unspecified; Dizziness and giddiness; Essential (primary) hypertension; Type 2 diabetes mellitus. Bed requested for Telemetry/MedSurg (observation). Status is Observation. Condition is Fair. Problem is new. Symptoms have improved. UTI on Admission? No. ted 12:07 12:01 Abdomen W/Wo Contrast ordered. EDMS EDMS 12:21 11:56 Abdomen Pelvis W Con+CT.RAD.BRZ ordered. EDMS EDMS 13:03 12:04 06/21/2019 10:40 Hospitalization Ordered by Geneva Person MD for Observation. iw Preliminary diagnosis is Chest pain, unspecified; Dizziness and giddiness; Essential (primary) hypertension; Type 2 diabetes mellitus. Bed requested for Telemetry/MedSurg (observation). Status is Observation. Condition is Fair. Problem is new. Symptoms have improved. UTI on Admission? No. bd
--- NOTE | 2019-06-21 10:42 | ER ---
Nurse's Notes [facility] Name: Kelley Ordaz Age: 48 yrs Sex: Female : 1970 Arrival Date: 06/21/2019 Time: 10:14 Bed 6 Private MD: Edvin Perez B Diagnosis: Chest pain, unspecified;Dizziness and giddiness;Essential (primary) hypertension;Type 2 diabetes mellitus Presentation: 06/21 10:24 Presenting complaint: Patient states: dizziness and chest discomfort that began 1 hour ss ago. Patient reports this feels similar to that of when she had her last SD back in October. Transition of care: patient was not received from another setting of care. Onset of symptoms was June 21, 2019. Risk Assessment: Do you want to hurt yourself or someone else? Patient reports no desire to harm self or others. Initial Sepsis Screen: Does the patient meet any 2 criteria? No. Patient's initial sepsis screen is negative. Does the patient have a suspected source of infection? No. Patient's initial sepsis screen is negative. Care prior to arrival: None. 10:24 Method Of Arrival: Ambulatory ss 10:24 Acuity: DEJUAN 2 ss 10:25 Initial Sepsis Screen: Does the patient meet any 2 criteria? No. Patient's initial sv sepsis screen is negative. Does the patient have a suspected source of infection? No. Patient's initial sepsis screen is negative. 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 - Social history:: Smoking status: Patient uses tobacco products, smokes one pack cigarettes per day. - Ebola Screening: : No symptoms or risks identified at this time. Screenin:25 Abuse screen: Denies threats or abuse. Denies injuries from another. Nutritional sv screening: No deficits noted. Tuberculosis screening: No symptoms or risk factors identified. Fall Risk None identified. Assessment: 10:31 General: Appears in no apparent distress. Behavior is calm, cooperative. Pain: iw Complains of pain in from mid body up though chest Pain does not radiate. Pain currently is 6 out of 10 on a pain scale. Quality of pain is described as pressure, Pain began Is. Neuro: Level of Consciousness is awake, alert, obeys commands, Oriented to person, place, time, situation, Moves all extremities. Full function. Cardiovascular: Reports chest pain, lightheadedness, Patient's skin is warm and dry. Respiratory: Respiratory effort is even, unlabored. Derm: Skin is intact, is healthy with good turgor. Musculoskeletal: Range of motion: intact in all extremities. 11:22 Reassessment: Patient appears in no apparent distress at this time. Patient and/or iw family updated on plan of care and expected duration. Pain level reassessed. Patient is alert, oriented x 3, equal unlabored respirations, skin warm/dry/pink. pt assisted to bathroom via wheelchair, pt c/o midsternal chest pain. 12:26 Reassessment: Patient appears in no apparent distress at this time. Patient and/or iw family updated on plan of care and expected duration. Pain level reassessed. Patient is alert, oriented x 3, equal unlabored respirations, skin warm/dry/pink. pt back to room 6, from US, attempting to call report. Vital Signs: 10:23 BP 155 / 92; Pulse 79; Resp 16; Temp 98.0(TE); Pulse Ox 98% on R/A; Weight 117.93 kg; ss Height 5 ft. 6 in. (167.64 cm); Pain 6/10; 11:22 BP 126 / 56; Pulse 68; Resp 16; Pulse Ox 98% on R/A; iw 10:23 Body Mass Index 41.96 (117.93 kg, 167.64 cm) ss Vitals: 11:22 Cardiac Rhythm Assessment Regular. ED Course: 10:14 Patient arrived in ED. mr 10:14 Edvin Perez MD is Private Physician. mr 10:19 Kenzie Malik, ABI is Primary Nurse. iw 10:20 Navneet Taylor MD is Attending Physician. ted 10:23 Arm band placed on right wrist. ss 10:25 Patient has correct armband on for positive identification. Placed in gown. Bed in low sv position. Call light in reach. quality assurance monitor chassis on. Pulse ox on. NIBP on. Door closed. Head of bed elevated. 10:26 Triage completed. ss 10:28 EKG done, by metal room dental technician. reviewed by Navneet Taylor MD. 3 10:40 Geneva Person MD is Hospitalizing Provider. [facility] 10:40 Inserted saline lock: 20 gauge in right antecubital area, using aseptic technique. sv Blood collected. Flushed right antecubital with 5 ml normal saline. 10:49 XRAY Chest (1 view) In Process Unspecified. EDMS 10:49 CT Head Brain wo Cont In Process Unspecified. EDMS 12:22 Abdomen In Process Unspecified. EDMS 13:00 No provider procedures requiring assistance completed. Patient admitted, IV remains in iw place. Patient maintains SpO2 saturation greater than 95% on room air. 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 [facility] 13:00 Admitted to Tele accompanied by tech, family with patient, via wheelchair, room 204, iw with chart, Report called to ABI Rangel 13:00 Condition: good 13:00 Discharge instructions given to patient, family, Instructed on the need for admit, Demonstrated understanding of instructions. 13:03 Patient left the ED. iw Signatures: Dispatcher [employer] EDMayra Mendiola RN RN sv Anderson, Corey, MD MD cha Rivera, Mary mr Williams, Irene, RN RN iw Smirch, Shelby, RN RN Reema Hardin 3
[2019-06-21] MEDS ORDERED: METOPROLOL TAR 25 MG TAB ONE (10:44)
[2019-06-21] MEDS ORDERED: MORPHINE 2 MG/ML SYR ONE (10:44)
[2019-06-21] MEDS ORDERED: ONDANSETRON 4 MG/2 ML VIAL ONE (10:44)
[2019-06-21] MEDS ORDERED: ENOXAPARIN 100 MG/ML SYR SQ ONE (10:45)
[2019-06-21] MEDS ORDERED: FAMOTIDINE 20 MG/2 ML VIAL IV ONE (10:45)
--- NOTE | 2019-06-21 10:52 | RAD REPORT ---
EXAM DESCRIPTION: RAD - Chest Single View - 06/21/2019 10:47 am CLINICAL HISTORY: CHEST PAIN Chest pain. COMPARISON: Chest Single View dated 05/08/2019; Chest Single View dated 04/08/2019; Chest Single View dated 11/11/2018; Chest Pa And Lat (2 Views) dated 02/22/2018 FINDINGS: Portable technique limits examination quality. Mild interstitial pulmonary edema. The heart is moderately enlarged in size. No displaced fractures. IMPRESSION: Mild CHF.
[2019-06-21 10:57] LABS: Absolute Lymphocytes (CBC) 2.3 K/uL (0.7-4.9); Basophils % 0.8 % (0-1.3); Lymphocytes % 19.7 % (15.3-44.8); MPV 8.9 fL (7.6-11.3); RBC Red Blood Cell Count 4.67 M/uL (3.86-4.86)
--- NOTE | 2019-06-21 10:58 | RAD REPORT ---
EXAM DESCRIPTION: CT - Head Brain Wo Cont - 06/21/2019 10:48 am CLINICAL HISTORY: Dizziness, syncope COMPARISON: August 2016 TECHNIQUE: Axial 5 mm thick images of the head were obtained without IV contrast. All CT scans are performed using dose optimization technique as appropriate and may include automated exposure control or mA/KV adjustment according to patient size. FINDINGS: No intracranial hemorrhage, mass, edema or shift of mid-line structures. No acute infarcti on changes seen. No abnormal extra-axial fluid collections. No significant atrophy or chronic ischemi c change. Ventricles are normal. Physiologic calcifications are present. Mastoid air cells and visualized portions of the paranasal sinuses are clear. No acute bony findings. IMPRESSION: Negative non-contrast CT head examination for acute finding. No significant change from 2016 study.
[2019-06-21 11:00] LABS: Protime INR 0.96
[2019-06-21 11:14] LABS: ALT/SGPT 22 U/L (12-78); AST/SGOT 12 U/L (15-37); Alkaline Phosphatase 91 U/L (45-117); BUN Blood Urea Nitrogen 11 mg/dL (7-18); Bicarbonate 28 mmol/L (21-32); Bilirubin Direct 0.1 mg/dL (0-0.2); Bilirubin Total 0.3 mg/dL (0.2-1.0); Glucose Level 119 mg/dL (74-106); Lipase 3190 U/L (73-393); NT PRO-BNP 166 pg/mL (<125); Potassium 4.1 mmol/L (3.5-5.1); Sodium Level 140 mmol/L (136-145); Troponin (Emerg Dept Use Only) < 0.02 ng/mL (0.0-0.045)
[2019-06-21 12:03] LABS: Urine Blood NEGATIVE (NEG); Urine Glucose NEGATIVE (NEG); Urine Protein NEGATIVE (NEG); Urine Specific Gravity <1.005 (1.005-1.030); Urine pH 5.5 (5.0-7.0)
--- NOTE | 2019-06-21 12:34 | EKG ---
Test Date: 2019-06-21 Test Time: 10:24:28 Sterile Tech: MAICO MEASUREMENT RESULTS: Intervals: Rate: 73 UT: 132 QRSD: 76 QT: 380 QTc: 418 [place]: P: 11 UT: 132 QRS: 58 T: 60 INTERPRETIVE STATEMENTS: Normal sinus rhythm Normal ECG Compared to ECG 05/08/2019 21:23:46 T-wave abnormality no longer present Prolonged QT interval no longer present Electronically Signed On 06-21-19 12:33:44 CDT by Amaury Fabian
--- NOTE | 2019-06-21 12:42 | RAD REPORT ---
EXAM DESCRIPTION: US - Abdomen Exam Limited - 06/21/2019 12:20 pm CLINICAL HISTORY: ABD PAIN COMPARISON: Abdomen Exam Complete dated 05/23/2019 FINDINGS: The gallbladder demonstrates no gallstones. No pericholecystic fluid or gallbladder wall t hickening. The common bile duct is normal measuring 4 mm. The liver demonstrates mildly heterogenous echotexture. IMPRESSION: Negative gallbladder/ biliary tree findings.
--- NOTE | 2019-06-21 12:51 | RAD REPORT ---
EXAM DESCRIPTION: CT - Abdomen Pelvis Wo Contrast - 06/21/2019 12:10 pm CLINICAL HISTORY: ABD PAIN COMPARISON: Abdomen Pelvis Wo Contrast dated 05/08/2019; Abdomen Pelvis W Contrast dated 12/19/2016 TECHNIQUE: Axial [address] imaging of the abdomen and pelvis was performed without IV contrast. No IV contrast was given because of allergy to iodinated contrast. Oral contrast was given. All CT scans are performed using dose optimization technique as appropriate and may include automated exposure control or mA/KV adjustment according to patient size. FINDINGS: No suspicious findings in the lung bases. Liver is prominent in size. No nodularity of the capsule. No focal lesions seen on noncontrast imagin g. Attenuation throughout the liver is decreased relative to the spleen. Small accessory splenic nodule seen. Spleen is normal in size. No pancreatic solid or cystic mass. Th ere is a trace amount of stranding at the pancreatic tail when compared to prior imaging. Gallbladder and biliary tree are also without suspicious finding. No hydronephrosis or suspicious renal mass. No significant adrenal finding. Isodense renal masses an d pyelonephritis cannot be excluded in the absence of IV contrast. The urinary bladder is without sig nificant finding. Uterus and ovaries show no suspicious findings. No dilated bowel loops or bowel wall thickening. Mild sigmoid diverticulosis is present without diver ticulitis. Appendix is normal. Appendix is retrocecal in positioning. No active GI process seen. No f ree air, free fluid or inflammatory stranding. No mass or bulky lymphadenopathy. Patient has a very s mall umbilical hernia. No suspicious bony findings. Punctate focus of air in the subcutaneous fat of the lower right abdomen is presumed to be medicatio n injection site. IMPRESSION: Trace amount of stranding is seen around the pancreatic tail without solid or cystic mas s. Correlation is needed with any clinical or laboratory findings that would support minimal pancreat itis. Liver shows a mild diffuse fatty infiltration pattern without a focal lesion identifiable. Gallbladde r and biliary tree are normal. No acute , GI or COLOR MAKER process identified. Full assessment is limited is the absence of IV contrast.
[2019-06-21] MEDS ORDERED: NITROGLYCERIN 0.4 MG/TAB SL PRN (13:09)
[2019-06-21 13:14] VITALS: BMI 41.4
[2019-06-21] MEDS: MORPHINE 4 MG/ML SYR IV PRN ×3 (14:19→23:48)
[2019-06-21] MEDS: ONDANSETRON 4 MG/2 ML VIAL IV PRN ×3 (14:19→23:52)
[2019-06-21] MEDS ORDERED: INSULIN -REGULAR HUMAN 50 UNIT/0.5 ML ML SQ SCH (16:30)
[2019-06-21] MEDS ORDERED: INFLUENZA VACCINE (for 3y+) 0.5 ML DOSE IMVAC ONE (18:00)
--- NOTE | 2019-06-21 18:31 | P.HP ---
Certification for Inpatient Patient admitted to: Inpatient Practitioner: I am a practitioner with admitting privileges, knowledge of patient current condition, hospital course, and medical plan of care. Services: Services provided to patient in accordance with Admission requirements found in Title 42 Section 412.3 of the Code of Federal Regulations Patient History Date of Service: 06/21/19 Reason for admission: Epigastric pain History of Present Illness: This is a 48-year-old female with past medical history of CAD, depression, hypertension, hyperlipidemia, cardiac stents and diabetes who presents to the emergency room with complaints of epigastric pain and fullness along with dizziness, nausea. Per patient, she has been having this epigastric discomfort for the past 2 months it has been intermittent. She describes it as sharp, located in the right upper quadrant going to the epigastric region and associated with nausea. This morning she also had an episode of dizziness that has been progressively worsening throughout the day. Her blood pressure is also been slowly climbing throughout the day. She states that she also has a history of anxiety, but has not been feeling well in general. Therefore her co- worker drove her to the emergency room. In the ER, blood pressure was 155/92, heart rate 79, respirations 16, afebrile at 98, satting 90% on room air with a BMI of 41.96. Her labs were fairly unremarkable except for lipase which was elevated to 3190. Troponin was seen at x1. Head CT was negative. Chest x-ray showed mild CHF. Abdominal CT was ordered by me, showed trace stranding around pancreas. Abdominal ultrasound showed no gallbladder etiology of gallstones. She had a cardiac catheterization in October of this month requiring PCI. In the ER, she received Lovenox, morphine, Zofran. At the time of my exam she was alert oriented x3, in no acute distress and hemodynamically stable. Allergies Iodine Allergy (Uncoded 11/11/18 17:05) Hives Home medications list reviewed: Yes Home Medications: Amlodipine Besylate 1 tab PO DAILY 06/21/19 Aspirin [Aspirin EC 81 MG] 1 tab PO BEDTIME 06/21/19 Atorvastatin Calcium [Lipitor] 80 mg PO BEDTIME 06/21/19 Cholecalciferol (Vitamin D3) [Vitamin D3] 1 cap PO DAILY 06/21/19 Clopidogrel Bisulfate [Plavix*] 1 tab PO DAILY 06/21/19 Ezetimibe 1 tab PO BEDTIME 06/21/19 Icosapent Ethyl [Vascepa] 1 cap PO BEDTIME 06/21/19 Metformin HCl [Metformin HCl ER] 1 tab PO BID 06/21/19 Metoprolol Tartrate 1 tab PO BID 06/21/19 Pregabalin 1 cap PO BID 06/21/19 Sertraline HCl 1 tab PO DAILY 06/21/19 - Past Medical/Surgical History Has patient received pneumonia vaccine in the past: Yes Diabetic: No -: HTN -: depression -: high cholesterol -: gestational DM -: carpal tunnel repair -: tubal ligation -: mesh liner - Family History Father -: Other (see notes) Notes: Alzeimehrs, aneursym Mother -: Hypertension, Cancer Notes: breast, colon, prostate - Social History Smoking Status: Current every day smoker Alcohol use: No CD- Drugs: No Caffeine use: Yes Place of Residence: Home Review of Systems 10-point ROS is otherwise unremarkable Physical Examination - Vital Signs Temperature: 97.4 F Blood Pressure: 139/83 Pulse: 67 Respirations: 16 Pulse Ox (%): 97 - Physical Exam General: Alert, In no apparent distress, Oriented x3 HEENT: Atraumatic, PERRLA, Mucous membr. moist/pink, EOMI, Sclerae nonicteric Neck: Supple, 2+ carotid pulse no bruit, No LAD, Without JVD or thyroid abnormality Respiratory: Clear to auscultation bilaterally, Normal air movement Cardiovascular: Regular rate/rhythm, Normal S1 S2 Gastrointestinal: Normal bowel sounds, Tenderness (Right lower quadrant) Musculoskeletal: No tenderness Integumentary: No rashes Neurological: Normal gait, Normal speech, Normal strength at 5/5 x4 extr, Normal tone, Normal affect Lymphatics: No axilla or inguinal lymphadenopathy - Studies Laboratory Data (last 24 hrs) 06/21/19 10:40: Triglycerides 214 H, Cholesterol 160, HDL Cholesterol 31 L, Cholesterol/HDL Ratio 5.16 06/21/19 10:40: PT 11.4, INR 0.96 06/21/19 10:40: WBC 11.9 H, Hgb 14.4, Hct 41.0, Plt Count 266 06/21/19 10:40: Sodium 140, Potassium 4.1, BUN 11, Creatinine 0.76, Glucose 119 H, Magnesium 2.0, Total Bilirubin 0.3, AST 12 L, ALT 22, Alkaline Phosphatase 91 , Lipase 3190 H Assessment and Plan - Plan Acute pancreatitis -Patient's symptoms consistent with acute pancreatitis -abdominal CT with trace stranding around the pancreas -abdominal ultrasound negative for any gallbladder etiology -keep NPO -IV fluids -pain control -lipid panel pending Coronary artery disease -Patient with a heart catheterization in October of this month, requiring PCI. -EKG with nonspecific changes -Initial troponin negative, will go ahead and trend troponins -denying any chest pain at the time of my exam, mostly epigastric pain. -will continue to monitor Depression/anxiety Stable, continue home medication Hypertension Stable, will continue home med Hyperlipidemia Continue home statin Diabetes mellitus type 2, tdi-[id number] with hyperglycemia Accu-Cheks and mild sliding scale insulin Nicotine dependence, uncomplicated Nicotine patch ordered Counseled Morbid Obesity, BMI 41.5 DVT prophylaxis: Lovenox GI prophylaxis: Protonix Diet: NPO Disposition: Admit to floor with tele, pending symptomatic improvement. Discharge Plan: Home Plan to discharge in: Greater than 2 days - Advance Directives Does patient have a Living Will: No Does patient have a Durable POA for Healthcare: No Time Spent Managing Pts Care (In Minutes): 55
[2019-06-21] MEDS: NICOTINE 21 MG/PAT TD SCH (19:38)
[2019-06-21] MEDS ORDERED: ICOSAPENT ETHYL 1 GM CAP PO SCH (21:00)
[2019-06-21] MEDS: PREGABALIN 75 MG CAP PO SCH (21:00)
[2019-06-21] MEDS ORDERED: METOPROLOL TAR 50 MG TAB PO SCH (21:00)
[2019-06-21] MEDS ORDERED: ATORVASTATIN 80 MG TAB PO SCH (21:00)
[2019-06-21] MEDS: METOPROLOL TAR 25 MG TAB PO SCH (21:00)
[2019-06-21] MEDS ORDERED: ATORVASTATIN 40 MG TAB PO SCH (21:00)
[2019-06-21] MEDS ORDERED: EZETIMIBE 10 MG TAB PO SCH (21:00)
[2019-06-21] MEDS ORDERED: ASPIRIN EC 81 MG TAB PO SCH (21:00)
[2019-06-21] MEDS ORDERED: D5 0.45 NS 1,000 ML IV SCH (23:00)
[2019-06-22] MEDS: MORPHINE 4 MG/ML SYR IV PRN (05:29)
[2019-06-22] MEDS: ONDANSETRON 4 MG/2 ML VIAL IV PRN (05:29)
[2019-06-22] MEDS: INSULIN -REGULAR HUMAN 50 UNIT/0.5 ML ML SQ SCH ×3 (06:00→12:00)
[2019-06-22 07:21] LABS: Absolute Lymphocytes (CBC) 2.3 K/uL (0.7-4.9); Basophils % 0.9 % (0-1.3); Hematocrit 40.9 % (36.0-45.0); Lymphocytes % 20.3 % (15.3-44.8); MPV 9.2 fL (7.6-11.3); RBC Red Blood Cell Count 4.57 M/uL (3.86-4.86)
[2019-06-22 07:39] LABS: Potassium 4.3 mmol/L (3.5-5.1)
[2019-06-22] MEDS: NICOTINE 21 MG/PAT TD SCH (09:00)
[2019-06-22] MEDS: METOPROLOL TAR 25 MG TAB PO SCH (09:00)
[2019-06-22] MEDS ORDERED: ASPIRIN EC 81 MG TAB PO SCH (09:00)
[2019-06-22] MEDS ORDERED: CLOPIDOGREL 75 MG TABLET PO SCH ×2 (09:00)
[2019-06-22] MEDS ORDERED: AMLODIPINE 5 MG TAB PO SCH (09:00)
[2019-06-22] MEDS ORDERED: SERTRALINE HCL 100 MG TAB PO SCH (09:00)
[2019-06-22] MEDS ORDERED: HOME MED 1 EA UNK (Cholecalciferol (Vitamin D3) [Vitamin D3] 1 CAP) PO SCH (09:00)
[2019-06-22] MEDS ORDERED: LISINOPRIL 10 MG TAB PO SCH (09:00)
[2019-06-22] MEDS: PREGABALIN 75 MG CAP PO SCH (09:01)
[2019-06-22 10:17] VITALS: O2SAT 92
--- NOTE | 2019-06-22 12:24 | P.PN ---
Subjective Date of Service: 06/22/19 Chief Complaint: Epigastric pain Subjective: No C/O voiced, Improving Patient seen and examined at bedside. No family at bedside. Chart reviewed and case discussed with nursing staff. Patient reports resolved abdominal pain. Patient continues to go down to smoke No Acute events noted overnight Review of Systems 10-point ROS is otherwise unremarkable Physical Examination - Vital Signs Temperature: 97.8 F Blood Pressure: 128/67 Pulse: 69 Respirations: 18 Pulse Ox (%): 96 - Physical Exam General: Alert, In no apparent distress, Oriented x3, Obese HEENT: Atraumatic, PERRLA, EOMI Neck: Supple, JVD not distended Respiratory: Clear to auscultation bilaterally, Normal air movement Cardiovascular: Regular rate/rhythm, Normal S1 S2 Gastrointestinal: Normal bowel sounds, No tenderness Musculoskeletal: No tenderness Integumentary: No rashes Neurological: Normal speech, Normal tone, Normal affect Lymphatics: No axilla or inguinal lymphadenopathy - Studies Laboratory Data (last 24 hrs) 06/21/19 10:40: Triglycerides 214 H, Cholesterol 160, HDL Cholesterol 31 L, Cholesterol/HDL Ratio 5.16 Assessment And Plan - Plan Acute pancreatitis improving -Patient's symptoms consistent with acute pancreatitis -abdominal CT with trace stranding around the pancreas -abdominal ultrasound negative for any gallbladder etiology -start clear liquid diet, advance as tolerated -IV fluids -pain control -lipid panel with slightly elevated triglycerides in the 200s. Coronary artery disease -Patient with a heart catheterization in October of this month, requiring PCI. -EKG with nonspecific changes -Initial troponin negative, will go ahead and trend troponins -denying any chest pain at the time of my exam, mostly epigastric pain. -will continue to monitor Depression/anxiety Stable, continue home medication Hypertension Stable, will continue home med Hyperlipidemia Continue home statin Diabetes mellitus type 2, ggi-vuzjhjw-hokpeeytd with hyperglycemia Accu-Cheks and mild sliding scale insulin Nicotine dependence, uncomplicated Nicotine patch ordered Counseled Morbid Obesity, BMI 41.5 DVT prophylaxis: Lovenox GI prophylaxis: Protonix Diet: Clear liquid diet Disposition: Pending symptomatic improvement. Anticipate discharge home in the next 24 hr once tolerating GI soft diet. Discharge Plan: Home Plan to discharge in: 24 Hours
[2019-06-22] MEDS ORDERED: ACETAMINOPHEN 325 MG TABLET PO PRN (15:36)
[2019-06-22] MEDS ORDERED: GLUCAGON 1 MG/VIAL IM PRN (15:38)
[2019-06-22] MEDS ORDERED: D50W 25 GM/50 ML SYRINGE IV PRN (15:38)
[2019-06-22] MEDS ORDERED: INSULIN -REGULAR HUMAN 50 UNIT/0.5 ML ML SQ SCH (16:30)
[2019-06-22 18:43] VITALS: BP 96/49; TEMP 99
[2019-06-25] MEDS ORDERED: DRISDOL (VITAMIN D=ERGOCALCIFEROL) 50000 UNIT CAP PO SCH (09:00)
--- NOTE | 2019-06-29 15:32 | P.DS ---
Admission Date: 06/21/19 Discharge Date: 06/22/19 Disposition: ROUTINE DISCHARGE Discharge Condition: GOOD Reason for Admission: Epigastric pain Brief History of Present Illness: This is a 48-year-old female with past medical history of CAD, depression, hypertension, hyperlipidemia, cardiac stents and diabetes who presents to the emergency room with complaints of epigastric pain and fullness along with dizziness, nausea. Per patient, she has been having this epigastric discomfort for the past 2 months it has been intermittent. She describes it as sharp, located in the right upper quadrant going to the epigastric region and associated with nausea. This morning she also had an episode of dizziness that has been progressively worsening throughout the day. Her blood pressure is also been slowly climbing throughout the day. She states that she also has a history of anxiety, but has not been feeling well in general. Therefore her co- worker drove her to the emergency room. In the ER, blood pressure was 155/92, heart rate 79, respirations 16, afebrile at 98, satting 90% on room air with a BMI of 41.96. Her labs were fairly unremarkable except for lipase which was elevated to 3190. Troponin was seen at x1. Head CT was negative. Chest x-ray showed mild CHF. Abdominal CT was ordered by me, showed trace stranding around pancreas. Abdominal ultrasound showed no gallbladder etiology of gallstones. She had a cardiac catheterization in October of this month requiring PCI. In the ER, she received Lovenox, morphine, Zofran. At the time of my exam she was alert oriented x3, in no acute distress and hemodynamically stable. Hospital Course: Patient was admitted for CP, RUQ pain along wiht nausea. She was found to have acute pancreatitis. She was kept NPO, given IVF and pain control. As her symptoms improved, she was started on CLD and advanced as tolerated. Prior to discharge, she was tolerating a GI soft diet, her symptoms had improved and she was hemodynamically stable. She otherwise did well throughtout the stay. her diagnosis/treatment plan was explained to her, all questions were answered and she verbalized understanding. She was then discharged home in a safe and stable manner. Vital Signs/Physical Exam: Temp Pulse Resp BP Pulse Ox 99.0 F 71 18 96/49 L 95 06/22/19 16:00 06/22/19 16:00 06/22/19 16:00 06/22/19 16:00 06/22/19 16:00 General: Alert, In no apparent distress, Obese HEENT: Atraumatic, PERRLA, EOMI Neck: Supple, JVD not distended Respiratory: Clear to auscultation bilaterally, Normal air movement Cardiovascular: Regular rate/rhythm, Normal S1 S2 Gastrointestinal: Normal bowel sounds, No tenderness Musculoskeletal: No tenderness Integumentary: No rashes Neurological: Normal speech, Normal tone, Normal affect Lymphatics: No axilla or inguinal lymphadenopathy Laboratory Data at Discharge: WBC 11.4 K/uL (4.3-10.9) H 06/22/19 06:51 Hgb 14.0 g/dL (12.0-15.0) 06/22/19 06:51 Hct 40.9 % (36.0-45.0) 06/22/19 06:51 Plt Count 207 K/uL (152-406) D 06/22/19 06:51 PT 11.4 SECONDS (9.5-12.5) 06/21/19 10:40 INR 0.96 06/21/19 10:40 Sodium 140 mmol/L (136-145) 06/22/19 06:51 Potassium 4.3 mmol/L (3.5-5.1) 06/22/19 06:51 BUN 12 mg/dL (7-18) 06/22/19 06:51 Creatinine 0.90 mg/dL (0.55-1.3) 06/22/19 06:51 Glucose 127 mg/dL (74-106) H 06/22/19 06:51 Magnesium 2.0 mg/dL (1.8-2.4) 06/21/19 10:40 Total Bilirubin 0.3 mg/dL (0.2-1.0) 06/21/19 10:40 AST 12 U/L (15-37) L 06/21/19 10:40 ALT 22 U/L (12-78) 06/21/19 10:40 Alkaline Phosphatase 91 U/L (45-117) 06/21/19 10:40 Troponin I < 0.02 ng/mL (0.0-0.045) 06/22/19 01:52 Triglycerides 214 mg/dL (<150) H 06/21/19 10:40 Cholesterol 160 mg/dL (<200) 06/21/19 10:40 HDL Cholesterol 31 mg/dL (40-60) L 06/21/19 10:40 Cholesterol/HDL Ratio 5.16 06/21/19 10:40 Lipase 3190 U/L (73-393) H 06/21/19 10:40 Home Medications: Amlodipine Besylate 1 tab PO DAILY 06/21/19 Aspirin [Aspirin EC 81 MG] 1 tab PO BEDTIME 06/21/19 Atorvastatin Calcium [Lipitor] 80 mg PO BEDTIME 06/21/19 Cholecalciferol (Vitamin D3) [Vitamin D3] 1 cap PO DAILY 06/21/19 Clopidogrel Bisulfate [Plavix*] 1 tab PO DAILY 06/21/19 Ezetimibe 1 tab PO BEDTIME 06/21/19 Icosapent Ethyl [Vascepa] 1 cap PO BEDTIME 06/21/19 Metformin HCl [Metformin HCl ER] 1 tab PO BID 06/21/19 Metoprolol Tartrate 1 tab PO BID 06/21/19 Pregabalin 1 cap PO BID 06/21/19 Sertraline HCl 1 tab PO DAILY 06/21/19 Patient Discharge Instructions: Please follow up with the primary care physician in 2-3 days. Return to the emergency room for worsening symptoms. Diet: as tolerated Activity: Ad rena Time spent managing pt's care (in minutes): 55
== END 2019-06-22 20:35 | disposition home or self-care (01) | DRG 439 ==
LOC: ER 10:11 → ERHOLD 11:46 → 2ND 12:38
PROVIDERS: ADMIT Family Medicine; ATTEND Family Medicine
DX: K85.90 Acute pancreatitis without necrosis or infection, unspecified (principal); Z68.41 Body mass index [BMI] 40.0-44.9, adult; I25.10 Atherosclerotic heart disease of native coronary artery without angina pectoris; I10 Essential (primary) hypertension; E78.5 Hyperlipidemia, unspecified; E66.9 Obesity, unspecified; F41.8 Other specified anxiety disorders; E11.65 Type 2 diabetes mellitus with hyperglycemia; F17.210 Nicotine dependence, cigarettes, uncomplicated; Z95.5 Presence of coronary angioplasty implant and graft; Z23 Encounter for immunization
CPT/HCPCS: 36415; 70450; 71045; 74176; 76705; 80048; 80061; 80076; 81003; 82962; 83690; 83735; 83880; 84484; 85025; 85610; 90471; 93005; 94760; 96372; 96374; 96375; 99285; J1650; J2270; J2405; J7799; Q2035

== ENCOUNTER 2019-07-01 22:50 | Inpatient (IN) | payer OTHER ==
[2019-07-01] MEDS ORDERED: NA CHLORIDE 0.9% 1,000 ML ONE (23:32)
[2019-07-01] MEDS ORDERED: KETOROLAC 30 MG/ML INJ ONE (23:32)
[2019-07-01 23:41] LABS: Urine Blood TRACE (NEG); Urine Glucose 2+ (NEG); Urine Protein NEGATIVE (NEG); Urine Specific Gravity >1.030 (1.005-1.030)
[2019-07-01 23:51] LABS: Absolute Lymphocytes (CBC) 2.1 K/uL (0.7-4.9); Basophils % 1.2 % (0-1.3); Hematocrit 39.3 % (36.0-45.0); Lymphocytes % 20.4 % (15.3-44.8); MPV 8.9 fL (7.6-11.3); RBC Red Blood Cell Count 4.44 M/uL (3.86-4.86)
[2019-07-01 23:56] LABS: Urine Bacteria 20-50 /HPF (<20); Urine Culture Reflex Order REFLEXED; Urine RBC <5 /HPF (NONE SEEN)
[2019-07-02 00:41] LABS: ALT/SGPT 20 U/L (12-78); AST/SGOT 16 U/L (15-37); Albumin 3.5 g/dL (3.4-5.0); Alkaline Phosphatase 88 U/L (45-117); BUN Blood Urea Nitrogen 14 mg/dL (7-18); Bicarbonate 27 mmol/L (21-32); Bilirubin Direct < 0.1 mg/dL (0-0.2); Bilirubin Total 0.3 mg/dL (0.2-1.0); Glucose Level 255 mg/dL (74-106); Lipase 2109 U/L (73-393); Potassium 3.9 mmol/L (3.5-5.1); Protein, Total 7.3 g/dL (6.4-8.2); Sodium Level 139 mmol/L (136-145)
[2019-07-02] MEDS ORDERED: HYDROMORPHONE HCL 1 MG/ML INJ ONE (00:58)
[2019-07-02] MEDS ORDERED: ACETAMINOPHEN 500 MG TAB PO PRN (01:16)
--- NOTE | 2019-07-02 02:06 | EDPHYS ---
Physician Documentation [facility] Name: Kelley Ordaz Age: 48 yrs Sex: Female : 1970 Arrival Date: 07/01/2019 Time: 22:53 Bed 8 Private MD: ED Physician Navin Cash HPI: 07/02 01:55 This 48 yrs old Female presents to ER via Ambulatory with complaints of gs Abdominal Pain. 02:01 The patient presents with abdominal pain in the left upper quadrant, in the left lower gs quadrant. Onset: The symptoms/episode began/occurred yesterday. Associated signs and symptoms: Pertinent positives: nausea. The symptoms are described as crampy, sharp. Modifying factors: The symptoms are alleviated by nothing, the symptoms are aggravated by nothing. Severity of pain: At its worst the pain was severe in the emergency department the pain is unchanged. The patient has experienced similar episodes in the past, a few times. The patient has been recently been admitted at [facility], was discharged a couple of weeks ago. 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 - Social history:: Smoking status: Patient uses tobacco products, smokes one pack cigarettes per day. - Ebola Screening: : No symptoms or risks identified at this time. ROS: 07/02 02:01 All other systems are negative. gs Exam: 02:01 Head/Face: Normocephalic, atraumatic. Eyes: Pupils equal round and reactive to light, gs extra-ocular motions intact. Lids and lashes normal. Conjunctiva and sclera are non-icteric and not injected. Cornea within normal limits. Periorbital areas with no swelling, redness, or edema. ENT: Nares patent. No nasal discharge, no septal abnormalities noted. Tympanic membranes are normal and external auditory canals are clear. Oropharynx with no redness, swelling, or masses, exudates, or evidence of obstruction, uvula midline. Mucous membranes moist. Neck: Trachea midline, no thyromegaly or masses palpated, and no cervical lymphadenopathy. Supple, full range of motion without nuchal rigidity, or vertebral point tenderness. No Meningismus. Chest/axilla: Normal chest wall appearance and motion. Nontender with no deformity. No lesions are appreciated. Cardiovascular: Regular rate and rhythm with a normal S1 and S2. No gallops, murmurs, or rubs. Normal PMI, no JVD. No pulse deficits. Respiratory: Lungs have equal breath sounds bilaterally, clear to auscultation and percussion. No rales, rhonchi or wheezes noted. No increased work of breathing, no retractions or nasal flaring. Skin: Warm, dry with normal turgor. Normal color with no rashes, no lesions, and no evidence of cellulitis. MS/ Extremity: Pulses equal, no cyanosis. Neurovascular intact. Full, normal range of motion. Neuro: Awake and alert, GCS 15, oriented to person, place, time, and situation. Cranial nerves II-XII grossly intact. Motor strength 5/5 in all extremities. Sensory grossly intact. Cerebellar exam normal. Normal gait. 02:01 Constitutional: The patient appears alert, awake, in obvious distress, uncomfortable. 02:01 Abdomen/GI: Palpation: moderate abdominal tenderness, in the left upper quadrant and left lower quadrant, rebound tenderness, is not appreciated. Vital Signs: 07/01 23:02 BP 158 / 74; Pulse 90; Resp 16; Temp 97.5; Pulse Ox 100% on R/A; Weight 113.4 kg; la1 Height 5 ft. 6 in. (167.64 cm); 07/02 01:00 BP 137 / 63; Pulse 85; Resp 17; Pulse Ox 99% ; Pain 5/10; rr5 02:20 BP 125 / 70; Pulse 75; Resp 19; Pulse Ox 98% ; Pain 3/10; rr5 03:22 BP 110 / 67; Pulse 69; Resp 17; Temp 97.8; Pulse Ox 99% ; Pain 0/10; rr5 07/01 23:02 Body Mass Index 40.35 (113.40 kg, 167.64 cm) la1 MDM: 07/01 23:24 Patient medically screened. gs 07/02 02:01 Differential diagnosis: diverticulitis, non-specific abd pain, pancreatitis, gs Ureterolithiasis. Data reviewed: vital signs, nurses notes, old medical records, lab test result(s), radiologic studies. Counseling: I had a detailed discussion with the patient and/or guardian regarding: the historical points, exam findings, and any diagnostic results supporting the discharge/admit diagnosis, lab results, radiology results, the need for further work-up and treatment in the hospital. Response to treatment: the patient's symptoms have markedly improved after treatment, and as a result, I will admit patient. 07/01 23:24 Order name: Basic Metabolic Panel; Complete Time: 00:55 07/01 23:24 Order name: CBC with Diff; Complete Time: 00:55 07/01 23:24 Order name: Hepatic Function; Complete Time: 00:55 07/01 23:24 Order name: Lipase; Complete Time: 00:55 07/01 23:27 Order name: Urine Microscopic Only; Complete Time: 00:55 07/01 23:28 Order name: Urine Dipstick--Ancillary (enter results); Complete Time: 00:55 [facility] 07/01 23:24 Order name: CT Stone Protocol 07/01 23:28 Order name: Urine --Ancillary (enter results); Complete Time: 00:55 [facility] 07/01 23:57 Order name: Urine Culture [facility] 07/02 01:21 Order name: CBC with Automated Diff [facility] 07/02 01:21 Order name: Comprehensive Metabolic Panel [facility] 07/02 01:21 Order name: Lipase [facility] 07/02 01:21 Order name: Lipid Profile [facility] 07/02 01:21 Order name: Troponin I [facility] 07/01 23:24 Order name: IV Saline Lock; Complete Time: 23:42 07/01 23:24 Order name: Labs collected and sent; Complete Time: 23:42 07/01 23:27 Order name: Urine Test (obtain specimen); Complete Time: 23:31 07/01 23:27 Order name: Urine Dipstick-Ancillary (obtain specimen); Complete Time: 23:31 07/02 01:21 Order name: CONS Pharmacy Consult [facility] 07/02 01:21 Order name: NPO [facility] Administered Medications: 07/01 23:43 Drug: TORadol - Ketorolac 15 mg Route: IVP; Site: right antecubital; rr5 07/02 01:00 Follow up: Response: No adverse reaction; Pain is decreased rr5 07/01 23:43 Drug: NS 0.9% 1000 ml Route: IV; Rate: 1 bolus; Site: right antecubital; rr5 07/02 03:30 Follow up: Response: No adverse reaction; IV Status: Completed infusion; IV Intake: rr5 1000ml 01:11 Drug: Dilaudid 1 mg {Note: rass 0.} Route: IVP; Site: right forearm; rr5 02:10 Follow up: Response: No adverse reaction; Pain is decreased rr5 Disposition: 07/02/19 02:05 Hospitalization ordered by Servando Paul for Inpatient Admission. Preliminary diagnosis is Acute pancreatitis. - Bed requested for Telemetry/MedSurg (Inpatient). - Status is Inpatient Admission. rr5 - Condition is Stable. - Problem is an acute exacerbation. - Symptoms are unchanged. UTI on Admission? No Signatures: Dispatcher [employer] EDMS Uzma Mejia RN RN Rashi Alvarado RN RN la1 Navin Cash MD MD Jermaine Brock RN RN rr5 Corrections: (The following items were deleted from the chart) 03:03 02:05 Hospitalization Ordered by Servando Paul MD for Inpatient Admission. Preliminary diagnosis is Acute pancreatitis. Bed requested for Telemetry/MedSurg (Inpatient). Status is Inpatient Admission. Condition is Stable. Problem is an acute exacerbation. Symptoms are unchanged. UTI on Admission? No. gs 03:31 03:03 07/02/2019 02:05 Hospitalization Ordered by Servando Paul MD for Inpatient rr5 Admission. Preliminary diagnosis is Acute pancreatitis. Bed requested for Telemetry/MedSurg (Inpatient). Status is Inpatient Admission. Condition is Stable. Problem is an acute exacerbation. Symptoms are unchanged. UTI on Admission? No. mw
--- NOTE | 2019-07-02 02:06 | ER ---
Nurse's Notes [facility] Name: Kelley Ordaz Age: 48 yrs Sex: Female : 1970 Arrival Date: 07/01/2019 Time: 22:53 Bed 8 Private MD: Diagnosis: Acute pancreatitis Presentation: 07/01 23:01 Presenting complaint: Patient states: left flank pain since tuesday. Transition of care: la1 patient was not received from another setting of care. Onset of symptoms was July 01, 2019. Risk Assessment: Do you want to hurt yourself or someone else? Patient reports no desire to harm self or others. Initial Sepsis Screen: Does the patient meet any 2 criteria? No. Patient's initial sepsis screen is negative. Does the patient have a suspected source of infection? No. Patient's initial sepsis screen is negative. Care prior to arrival: None. 23:01 Method Of Arrival: Ambulatory la1 23:01 Acuity: DEJUAN 3 la1 WARE TESTER: 23:00 LMP 2013 rr5 Historical: - Allergies: 23:02 Iodine (Respiratory distress); la1 - PMHx: 23:02 CAD; Depression; Diverticulitis; High Cholesterol; Hypertension; Myocardial infarction; la1 - Immunization history:: Adult Immunizations up to date. - Social history:: Smoking status: Patient uses tobacco products, smokes one pack cigarettes per day. - Ebola Screening: : No symptoms or risks identified at this time. Screenin:17 Abuse screen: Denies threats or abuse. Denies injuries from another. Nutritional rr5 screening: No deficits noted. Tuberculosis screening: No symptoms or risk factors identified. Fall Risk None identified. Total Nguyen Fall Scale indicates No Risk (0-24 pts). Assessment: 23:05 General: Appears in no apparent distress. uncomfortable, Behavior is calm, cooperative, rr5 appropriate for age. 23:05 Pain: Complains of pain in left upper quadrant Pain does not radiate. Pain currently is rr5 7 out of 10 on a pain scale. Quality of pain is described as aching, Pain began gradually, Is intermittent. Neuro: Level of Consciousness is awake, alert, obeys commands, Oriented to person, place, time, situation, Appropriate for age. Cardiovascular: Capillary refill < 3 seconds Patient's skin is warm and dry. Respiratory: Airway is patent Respiratory effort is even, unlabored, Respiratory pattern is regular, symmetrical. GI: Abdomen is round obese, Reports upper abdominal pain, nausea. : No signs and/or symptoms were reported regarding the genitourinary system. EENT: No signs and/or symptoms were reported regarding the EENT system. Derm: Skin is intact, is healthy with good turgor, Skin temperature is warm. Musculoskeletal: Circulation, motion, and sensation intact. Capillary refill < 3 seconds. 07/02 00:06 Reassessment: Patient appears in no apparent distress at this time. Patient and/or rr5 family updated on plan of care and expected duration. Pain level reassessed. Patient is alert, oriented x 3, equal unlabored respirations, skin warm/dry/pink. awaiting for results. 01:00 Reassessment: Patient appears in no apparent distress at this time. complaining that rr5 the pain is increasing right now. as verbalized by the patient. ED provider aware with order made and carried out. 02:00 Reassessment: Patient appears in no apparent distress at this time. resting eyes closed rr5 breathing spontaneously at room air. Patient states feeling better. Patient states symptoms have improved. 03:25 Reassessment: Patient appears in no apparent distress at this time. Patient is alert, rr5 oriented x 3, equal unlabored respirations, skin warm/dry/pink. for transfer to room [facility]. no complaints made. Patient states feeling better. Patient states symptoms have improved. Vital Signs: 07/01 23:02 BP 158 / 74; Pulse 90; Resp 16; Temp 97.5; Pulse Ox 100% on R/A; Weight 113.4 kg; la1 Height 5 ft. 6 in. (167.64 cm); 07/02 01:00 BP 137 / 63; Pulse 85; Resp 17; Pulse Ox 99% ; Pain 5/10; rr5 02:20 BP 125 / 70; Pulse 75; Resp 19; Pulse Ox 98% ; Pain 3/10; rr5 03:22 BP 110 / 67; Pulse 69; Resp 17; Temp 97.8; Pulse Ox 99% ; Pain 0/10; rr5 07/01 23:02 Body Mass Index 40.35 (113.40 kg, 167.64 cm) la1 ED Course: 07/01 22:53 Patient arrived in ED. ag3 23:01 Triage completed. la1 23:02 Rashi Alvarado RN is Primary Nurse. la1 23:02 Arm band placed on right wrist. la1 23:05 Patient has correct armband on for positive identification. Placed in gown. Bed in low rr5 position. Call light in reach. Side rails up X2. Pulse ox on. NIBP on. 23:09 Jermaine Brock, ABI is Primary Nurse. rr5 23:14 Navin Cash MD is Attending Physician. 23:42 Inserted saline lock: 22 gauge in right forearm, using aseptic technique. Blood mt collected. 07/02 00:35 CT Stone Protocol In Process Unspecified. EDMS 01:52 No provider procedures requiring assistance completed. rr5 02:04 Servando Paul MD is Hospitalizing Provider. 03:24 Patient admitted, IV remains in place. intact, No redness/swelling at site. rr5 Administered Medications: 07/01 23:43 Drug: TORadol - Ketorolac 15 mg Route: IVP; Site: right antecubital; rr5 07/02 01:00 Follow up: Response: No adverse reaction; Pain is decreased rr5 07/01 23:43 Drug: NS 0.9% 1000 ml Route: IV; Rate: 1 bolus; Site: right antecubital; rr5 07/02 03:30 Follow up: Response: No adverse reaction; IV Status: Completed infusion; IV Intake: rr5 1000ml 01:11 Drug: Dilaudid 1 mg {Note: rass 0.} Route: IVP; Site: right forearm; rr5 02:10 Follow up: Response: No adverse reaction; Pain is decreased rr5 Intake: 03:30 IV: 1000ml; Total: 1000ml. rr5 Outcome: 02:05 Decision to Hospitalize by Provider. gs 03:24 Admitted to Med/surg accompanied by nurse, accompanied by tech, via wheelchair, room rr5 212, with chart, Report called to ananth 03:24 Condition: stable 03:24 Instructed on the need for admit. 03:31 Patient left the ED. rr5 Signatures: Dispatcher [employer] EDMS Rashi Alvarado RN RN la1 Isabel Jauregui nm Navin Cash MD MD Talya Gale [facility] Jermaine Brock, ABI RN rr5
[2019-07-02] MEDS: NA CHLORIDE 0.9% 1,000 ML IV SCH ×3 (03:37→22:00)
[2019-07-02] MEDS: ONDANSETRON 4 MG/2 ML VIAL IV PRN ×2 (04:02→19:48)
[2019-07-02] MEDS: MORPHINE 4 MG/ML SYR IV PRN ×5 (04:03→21:33)
[2019-07-02 04:36] VITALS: BMI 40.3
[2019-07-02 05:55] LABS: Absolute Lymphocytes (CBC) 2.5 K/uL (0.7-4.9); Basophils % 0.7 % (0-1.3); Hematocrit 36.7 % (36.0-45.0); Lymphocytes % 27.7 % (15.3-44.8); MPV 8.7 fL (7.6-11.3)
[2019-07-02] MEDS ORDERED: CEFTRIAXONE 1 GM/NS 50 ML 1 GM/50 ML BAG IV SCH (06:00)
[2019-07-02] MEDS: CEFTRIAXONE/SWI 1gm 1 GM/10 ML SYR IV SCH (06:14)
[2019-07-02 06:24] LABS: ALT/SGPT 19 U/L (12-78); AST/SGOT 13 U/L (15-37); Albumin 3.2 g/dL (3.4-5.0); Alkaline Phosphatase 84 U/L (45-117); BUN Blood Urea Nitrogen 16 mg/dL (7-18); Bicarbonate 28 mmol/L (21-32); Bilirubin Total 0.2 mg/dL (0.2-1.0); Glucose Level 162 mg/dL (74-106); HDL Cholesterol 28 mg/dL (40-60); LDL Cholesterol, Calculated 75 (<130); Lipase 1568 U/L (73-393); Potassium 3.9 mmol/L (3.5-5.1); Protein, Total 6.7 g/dL (6.4-8.2); Sodium Level 141 mmol/L (136-145); Troponin I < 0.02 ng/mL (0.0-0.045)
--- NOTE | 2019-07-02 09:17 | P.HP ---
Certification for Inpatient Patient admitted to: Inpatient With expected LOS: >2 Midnights Patient will require the following post-hospital care: None Practitioner: I am a practitioner with admitting privileges, knowledge of patient current condition, hospital course, and medical plan of care. Services: Services provided to patient in accordance with Admission requirements found in Title 42 Section 412.3 of the Code of Federal Regulations Patient History Date of Service: 07/02/19 Reason for admission: Acute pancreatitis History of Present Illness: Patient is a 48-year-old female who came to the hospital with abdominal pain. Pain was mainly in the epigastric region. Patient has similar complaints about a week ago. At that time she was found to be on a Glucagon-like peptide- 1 receptor agonist. This was stopped. However, she has had recurrence of her pancreatitis. We will go ahead and get an MRCP, and will get a GI consultation. Patient will be admitted for IV hydration and pain control. She will be kept NPO for now. Allergies Iodine Allergy (Uncoded 07/02/19 03:25) Shortness of breath Home Medications: Aspirin [Aspirin EC 81 MG] 1 tab PO BEDTIME 06/21/19 Atorvastatin Calcium [Lipitor] 80 mg PO BEDTIME 06/21/19 Cholecalciferol (Vitamin D3) [Vitamin D3] 1 cap PO SEECOM 06/21/19 Clopidogrel Bisulfate [Plavix*] 1 tab PO DAILY 06/21/19 Ezetimibe 1 tab PO BEDTIME 06/21/19 Icosapent Ethyl [Vascepa] 1 cap PO BEDTIME 06/21/19 Metformin HCl [Metformin HCl ER] 1 tab PO TID 06/21/19 Metoprolol Tartrate 1 tab PO BID 06/21/19 Pregabalin 1 cap PO BID 06/21/19 Sertraline HCl 1 tab PO DAILY 06/21/19 Amlodipine Bes/Olmesartan Med [Amlodipine-Olmesartan 5-40 mg] 1 each PO DAILY - Past Medical/Surgical History Has patient received pneumonia vaccine in the past: No Diabetic: No -: HTN -: depression -: high cholesterol -: gestational DM -: carpal tunnel repair -: tubal ligation -: mesh liner - Family History Father Medical History: Other (see notes) Notes: Alzeimehrs, aneursym Mother Medical History: Hypertension, Cancer Notes: breast, colon, prostate - Social History Smoking Status: Current every day smoker Alcohol use: No CD- Drugs: No Caffeine use: Yes Place of Residence: Home Review of Systems 10-point ROS is otherwise unremarkable Physical Examination - Vital Signs Temperature: 97.0 F Blood Pressure: 143/67 Pulse: 71 Respirations: 18 Pulse Ox (%): 96 - Physical Exam General: Alert, In no apparent distress, Oriented x3 HEENT: Atraumatic, PERRLA, Mucous membr. moist/pink, EOMI, Sclerae nonicteric Neck: Supple, 2+ carotid pulse no bruit, No LAD, Without JVD or thyroid abnormality Respiratory: Clear to auscultation bilaterally, Normal air movement Cardiovascular: Regular rate/rhythm, Normal S1 S2, No murmurs Gastrointestinal: Normal bowel sounds, Soft and benign, Non-distended, Tenderness Musculoskeletal: No clubbing, No swelling, No tenderness Integumentary: No rashes Neurological: Normal gait, Normal speech, Normal strength at 5/5 x4 extr, Normal tone, Sensation intact, Cranial nerves 3-12 intact, Normal affect Lymphatics: No axilla or inguinal lymphadenopathy - Studies Laboratory Data (last 24 hrs) 07/01/19 23:35: WBC 10.4, Hgb 13.7, Hct 39.3, Plt Count 248 07/01/19 23:35: Sodium 139, Potassium 3.9, BUN 14, Creatinine 0.90, Glucose 255 H, Total Bilirubin 0.3, AST 16, ALT 20, Alkaline Phosphatase 88, Lipase 2109 H Assessment & Plan - Problems (Diagnosis) (1) Acute pancreatitis Current Visit: Yes Status: Acute (2) CAD (coronary artery disease) Current Visit: No Status: Acute (3) Diabetes mellitus Onset Date: 12/20/16 Current Visit: No Status: Chronic (4) Fatty liver Current Visit: No Status: Chronic (5) HTN (hypertension) Onset Date: 12/20/16 Current Visit: No Status: Chronic Qualifiers: (6) Hyperlipidemia Current Visit: No Status: Chronic Qualifiers: - Plan Plan: 1. IV hydration 2. Pain control 3. MRCP 4. GI consultation 5. Antiemetics as needed 6. Lipid profile 7. GI and DVT prophylaxis Discharge Plan: Home Plan to discharge in: Greater than 2 days - Advance Directives Does patient have a Living Will: No Does patient have a Durable POA for Healthcare: No - Code Status/Comfort Care Code Status Assessed: Yes Code Status: Full Code Critical Care: No Time Spent Managing PTS Care (In Minutes): 50
[2019-07-02] MEDS ORDERED: GLUCAGON 1 MG/VIAL IM PRN (09:51)
[2019-07-02] MEDS ORDERED: D50W 25 GM/50 ML SYRINGE IV PRN (09:51)
--- NOTE | 2019-07-02 10:02 | RAD REPORT ---
EXAM DESCRIPTION: CT - Stone Protocol - 07/02/2019 4:27 am CLINICAL HISTORY: 48 years Female FLANK PAIN COMPARISON: None TECHNIQUE: Images were obtained in axial, sagittal, and coronal planes. No intravenous or oral contr ast was administered. This exam was performed according to our departmental dose-optimization program which includes use of Automated Exposure Control, adjustment of the mA and/or kV according to patient size and/or use of i terative reconstruction technique. FINDINGS: Mildly enlarged distal body and tail of pancreas with associated mesenteric stranding and ill-defined fluid. The findings would be consistent with acute pancreatitis. No associated pseudocyst or abnormal calcification. No involvement head of pancreas. Thickening Gerota's fascia on left. Decreased attenuation liver consistent with fatty change. Prominent right lobe of liver likely Jose Luis 's lobe. Spleen is enlarged measuring 14.6 cm in greatest dimension. Suspected varices in region of s plenic hilus. Accessory splenic tissue also present. Contracted gallbladder. No obstructing renal calcifications bilaterally. No hydronephrosis bilaterally. Unremarkable bladder. Appendix within normal limits. No bowel obstruction, perforation, or inflammation. Marked diverticulo sis distal left colon with no associated inflammatory change. No abnormality lower lungs bilaterally. No acute osseous abnormality. No dilatation abdominal aorta. No adenopathy or abnormal fluid collections seen. IMPRESSION: Findings consistent with acute pancreatitis distal body and tail of pancreas. No associa aleta pseudocyst. Fatty change involving the liver. Enlarged spleen. Suspected varices left upper abdomen. Extensive diverticulosis distal left colon with no associated inflammatory change. Electronically signed by: Lucila Gore MD 07/02/2019 12:41 AM CDT Due to temporary technical issues with the PACS/Fluency reporting system, reports are being signed by the in house radiologist as a courtesy to ensure prompt reporting. The interpreting radiologist is f ully responsible for the content of the report.
[2019-07-02] MEDS: INSULIN -REGULAR HUMAN 50 UNIT/0.5 ML ML SQ SCH ×3 (11:30→19:50)
--- NOTE | 2019-07-02 11:58 | RAD REPORT ---
EXAM DESCRIPTION: MRI - Cholangiogram - 07/02/2019 11:47 am CLINICAL HISTORY: pancreatitis recurrent Abdominal pain COMPARISON: Stone Protocol dated 07/02/2019; Abdomen Pelvis Wo Contrast dated 06/21/2019; Abdomen E xam Limited dated 06/21/2019 FINDINGS: Three-dimensional MRCP was performed using maximum intensity projection reconstruction on the same work station. No intrahepatic biliary tree dilatation is seen. The common bile duct is normal caliber without evide nce of retained stone, stricture or mass. The pancreatic duct is not pathologically dilated. The gallbladder is unremarkable. Limited T2 sequences through the abdomen demonstrates no bulky adenopathy, significant free fluid or abscess. Mild inflammatory changes suspected about the pancreatic tail region. IMPRESSION: Negative MR cholangiogram.
[2019-07-03] MEDS: NA CHLORIDE 0.9% 1,000 ML IV SCH ×2 (02:31→08:00)
[2019-07-03] MEDS: MORPHINE 4 MG/ML SYR IV PRN ×4 (06:00→21:23)
[2019-07-03] MEDS: INSULIN -REGULAR HUMAN 50 UNIT/0.5 ML ML SQ SCH ×4 (07:30→21:00)
[2019-07-03] MEDS: CEFTRIAXONE/SWI 1gm 1 GM/10 ML SYR IV SCH (09:09)
[2019-07-03] MEDS: ONDANSETRON 4 MG/2 ML VIAL IV PRN ×2 (10:15→16:37)
--- NOTE | 2019-07-03 11:29 | PN ---
Patient seen and examined. Chart reviewed and case discussed with RN. Patient still having signific ant amount of abdominal pain radiating to the left flank and back. No nausea or vomiting. Medications: List reviewed. Physical Examination: Vital Signs: Temperature 98.2, heart rate 68, blood pressure 132/62, respirations 18, O2 sat at 96% on room air. General: Awake, alert, oriented x3. Morbidly obese female. BMI 40. CV: S1, S2. Regular rate and rhythm. Peripheral pulses present. Respiratory: Moving air well bilaterally. No wheezing or stridor. No use of accessory muscles Cory rointestinal: Abdomen soft. Mild tenderness to palpation in the epigastric and suprapubic region. No rebound or guarding. Positive bowel sounds. Extremities: No clubbing, cyanosis, or edema. Neuro: Cranial nerves 2 through 12 intact grossly. No focal neurological deficit. Speech is normal . Laboratory Data: Pending urine culture. Preliminarily showing no growth. MRCP is negative. Assessment And Plan: 1.Acute pancreatitis likely secondary to GLP-1 receptor agonist. Lipase level still very much eleva aleta. We will recheck this morning. GI has is on board. MRCP is negative. Triglyceride levels are mildly elevated at 354. 2.Morbid obesity. BMI of 40. 3.Coronary artery disease [place] artery and [place] heart without angina, stable. Resume home medica tions as appropriate. 4.Essential hypertension, stable. 5.Major depressive disorder, stable, currently in remission. 6.Hyperlipidemia, mixed. Patient counseled. 7.Fatty liver disease. Patient counseled. She will need to continue following up with GI. She und erstands that long-term fatty liver disease may lead to end-stage renal disease and need for transpla nt and possibly even in the next decade on two unless she changes her diet and exercise habits and reverses fatty liver disease. 8.Deep vein thrombosis prophylaxis addressed. Plan: We will recheck lipase level. Follow up with GI. Continue n.p.o. Possible clear liquids in a.m. SA/MODL Voice ID: [id number] Report ID: [id number]
[2019-07-03] MEDS: Ringers Lactate 1,000 ML IV SCH ×2 (12:30→23:05)
[2019-07-04] MEDS: Ringers Lactate 1,000 ML IV SCH ×4 (01:50→20:58)
[2019-07-04 06:22] LABS: Albumin 3.1 g/dL (3.4-5.0); Bilirubin Total 0.4 mg/dL (0.2-1.0); Potassium 3.8 mmol/L (3.5-5.1); Protein, Total 6.6 g/dL (6.4-8.2)
[2019-07-04] MEDS: INSULIN -REGULAR HUMAN 50 UNIT/0.5 ML ML SQ SCH ×4 (07:30→21:00)
[2019-07-04] MEDS: MORPHINE 4 MG/ML SYR IV PRN ×2 (09:17→23:04)
[2019-07-04] MEDS: CEFTRIAXONE/SWI 1gm 1 GM/10 ML SYR IV SCH (09:17)
--- NOTE | 2019-07-04 13:23 | PN ---
Patient is seen and examined. Chart reviewed and case discussed with RN. Patient was still having some abdominal pain, states it has moved from the epigastrium to her suprapubic region. No nausea or vomiting. Medications: List reviewed. Physical Examination: Vital Signs: Temperature 98.1, heart rate 69, blood pressure 143/63, respirations 16, O2 100% on room air. General: Awake, alert, oriented x3. Ill-appearing morbidly obese female. CV: S1, S2. Regular rate and rhythm. Peripheral pulses present. Respiratory: Moving air well bilaterally. No wheezing or stridor. No use of accessory muscles. Gastrointestinal: Abdomen is soft. Tenderness to palpation in the epigastric and suprapubic region. No rebound or guarding. Positive bowel sounds. Extremities: No clubbing, cyanosis, or edema. Neurologic: Nonfocal. Laboratory Data: Sodium 138, potassium 3.8, chloride 106, CO2 29, BUN 8, creatinine 0.76, glucose 121, calcium 8.2, albumin 3.1, lipase levels 565. Urine culture growing mixed adriana. Assessment And Plan: A 48-year-old female with; 1. Acute pancreatitis likely due to GLP-1 receptor agonist. Lipase levels trending down however patient is still having some abdominal pain. No significant nausea or vomiting. We will start on clear liquid diet. Appreciate Dr. Farooq's input. Continue with IV fluids. 2. Hypertriglyceridemia. Counseled. Diet modification. 3. Morbid obesity. BMI greater than 40. 4. Coronary artery disease [place] artery and [place] heart without angina, stable. Continue home medications. 5. Essential hypertension, stable. 6. Major depressive disorder, stable, currently in remission. 7. Fatty liver disease. Continue outpatient followup with GI and imaging studies. 8. DM2. Non insulin requiring with hyperglycemia. 9. Deep venous thrombosis prophylaxis. SCDs, ambulation Plan: Encourage ambulation. Resume home medications as appropriate. Likely discharge in the next 24 to 48 hours depending on clinical response. /JACKELINE Voice ID: [id number] Report ID: [id number] JOSE
[2019-07-04 13:28] VITALS: O2SAT 100
--- NOTE | 2019-07-04 17:58 | P.PN ---
Subjective Date of Service: 07/04/19 Chief Complaint: Acute pancreatitis Subjective: Improving (Lipase down from ~ 1000 to ~ 500 overnight. Tolerated ice chips and water. PCP started liquids today.) Physical Examination - Vital Signs Temperature: 98.2 F Blood Pressure: 172/76 Pulse: 76 Respirations: 16 Pulse Ox (%): 94 - Studies Microbiology Data (last 24 hrs): 07/01/19 23:20 Clean Catch Urine [place] Count - Final BETWEEN 10,000 & 100,000 CFU/ML 07/01/19 23:20 Clean Catch Urine - Final MIXED BALTAZAR. Assessment And Plan - Current Problems (Diagnosis) (1) Obesity, morbid, BMI 40.0-49.9 Current Visit: Yes Status: Acute (2) Acute pancreatitis Current Visit: Yes Status: Acute (3) Abdominal pain Current Visit: No Status: Acute (4) Abnormal CT of the abdomen Current Visit: No Status: Acute (5) Depression with anxiety Current Visit: No Status: Chronic (6) Diabetes mellitus Onset Date: 12/20/16 Current Visit: No Status: Chronic (7) Fatty liver Current Visit: No Status: Chronic (8) HTN (hypertension) Onset Date: 12/20/16 Current Visit: No Status: Chronic Qualifiers: (9) Hyperlipidemia Current Visit: No Status: Chronic Qualifiers: - Plan REC: 1) continue IVFs 2) no more Ozempic 3) lipid control, exercise, and weight loss 4) GI clinic f/u in 1-2 weeks
[2019-07-04] MEDS: METOPROLOL TAR 25 MG TAB PO SCH (20:57)
[2019-07-04] MEDS: PREGABALIN 75 MG CAP PO SCH (20:58)
[2019-07-04] MEDS ORDERED: ASPIRIN EC 81 MG TAB PO SCH (21:00)
[2019-07-05] MEDS: Ringers Lactate 1,000 ML IV SCH ×3 (04:30→11:10)
[2019-07-05 05:35] LABS: Absolute Lymphocytes (CBC) 1.9 K/uL (0.7-4.9); Lymphocytes % 23.3 % (15.3-44.8); MPV 8.9 fL (7.6-11.3); RBC Red Blood Cell Count 3.97 M/uL (3.86-4.86)
[2019-07-05 05:54] LABS: Albumin 3.1 g/dL (3.4-5.0); Bilirubin Total 0.5 mg/dL (0.2-1.0); Potassium 3.8 mmol/L (3.5-5.1); Protein, Total 6.7 g/dL (6.4-8.2)
[2019-07-05] MEDS: INSULIN -REGULAR HUMAN 50 UNIT/0.5 ML ML SQ SCH ×2 (07:30→11:30)
[2019-07-05] MEDS: METOPROLOL TAR 25 MG TAB PO SCH (08:32)
[2019-07-05] MEDS: PREGABALIN 75 MG CAP PO SCH (08:32)
[2019-07-05] MEDS ORDERED: [UNRECOGNIZED DRUG - OTHER] PO SCH (09:00)
[2019-07-05] MEDS ORDERED: SERTRALINE HCL 100 MG TAB PO SCH (09:00)
[2019-07-05] MEDS ORDERED: CLOPIDOGREL 75 MG TABLET PO SCH (09:00)
[2019-07-05] MEDS ORDERED: AMLODIPINE BES PO SCH (09:00)
[2019-07-05] MEDS ORDERED: OLMESARTAN MED PO SCH (09:00)
[2019-07-05 10:16] VITALS: TEMP 97.2
[2019-07-05 13:39] VITALS: BP 170/85
--- NOTE | 2019-07-06 09:44 | DS ---
Date of Discharge: 07/05/2019 Consultants: Dr. Farooq with GI. Procedures: None. Admitting Diagnoses: 1. Acute pancreatitis. 2. Coronary artery disease. 3. Diabetes mellitus type 2, [id number] with hyperglycemia. 4. Fatty liver disease. 5. Essential hypertension. 6. Hyperlipidemia. Discharge Diagnoses: 1. Acute pancreatitis secondary to GLP-1 receptor agonist. Discontinue ozempic. 2. Hypertriglyceridemia, counseled. 3. Coronary artery disease [place] artery and [place] heart without angina, stable. 4. Essential hypertension, stable. 5. Morbid obesity. BMI 40.4. 6. Major depressive disorder, currently in remission. 7. Fatty liver disease. Outpatient followup with GI. 8. Diabetes mellitus type 2, [id number] with hyperglycemia. Hospital Course: Patient is a 48-year-old female, came into the hospital with abdominal pain. This was thought to be due to pancreatitis, which has recurred. The likely culprit is the glucagon-like peptide 1 receptor agonist which was discontinued. The patient's lipase level was significantly elevated at 2109. She was kept n.p.o. Started on IV fluids. GI was consulted. MRCP was done, which was negative for any ductal abnormality. Patient was slowly started on clear liquid diet and her diet was advanced. She tolerated her diet. Patient was then cleared from GI standpoint for outpatient followup. She was counseled regarding her obesity and fatty liver disease. She will need to adjust her diet and exercise regimen. She understands that fatty liver disease can convert to liver cirrhosis in 20 years or so and may cause irreversible damage leading to need for transplant or possibly even . She will need to follow up closely with GI to avoid nonalcoholic fatty liver disease and its complications, voiced understanding. The patient was then cleared for discharge. Medications: As per medication reconciliation list. Followup: Follow up with primary care physician in 2 to 3 days. Follow up with Dr. Farooq, GI in 2 weeks. Return to ER for worsening condition. Diet: Diabetic. No fried or fatty foods. Condition: Stable. Physical Examination: General: Awake, alert and oriented x3. Morbidly obese female. CV: S1, S2. Respiratory: Moving air well bilaterally. Abdomen: Abdomen is soft, nontender, nondistended. Positive bowel sounds. Extremities: No clubbing, cyanosis, edema. Neurologic: Nonfocal. Total time spent discharging the patient was 37 minutes. DERRELL Voice ID: [id number] Report ID: [id number] MTDTerry
== END 2019-07-05 13:45 | disposition home or self-care (01) | DRG 439 ==
LOC: ER 22:50 → ERHOLD 07-02 01:35 → 2ND 07-02 03:17
PROVIDERS: ADMIT Hospitalist; ATTEND Family Medicine
DX: K85.30 Drug induced acute pancreatitis without necrosis or infection (principal); Z68.41 Body mass index [BMI] 40.0-44.9, adult; T38.3X5A Adverse effect of insulin and oral hypoglycemic [antidiabetic] drugs, initial encounter; I25.10 Atherosclerotic heart disease of native coronary artery without angina pectoris; E11.65 Type 2 diabetes mellitus with hyperglycemia; E78.1 Pure hyperglyceridemia; I10 Essential (primary) hypertension; K76.0 Fatty (change of) liver, not elsewhere classified; F32.9 Major depressive disorder, single episode, unspecified; E66.01 Morbid (severe) obesity due to excess calories; Y92.9 Unspecified place or not applicable
CPT/HCPCS: 36415; 74176; 74181; 76377; 80048; 80053; 80061; 80076; 81003; 81015; 81025; 82962; 83690; 84484; 85025; 87086; 87088; 96361; 96374; 96375; 99285; J0696; J1170; J2405; J7030; J7120

== ENCOUNTER 2020-01-01 11:20 | Emergency (ER) | payer BC, OTHER ==
--- NOTE | 2020-01-01 12:04 | RAD REPORT ---
EXAM DESCRIPTION: CT - Head Brain Wo Cont - 01/01/2020 11:58 am CLINICAL HISTORY: NUMBNESS Headache, drowsiness COMPARISON: Head Brain Wo Cont dated 06/21/2019; Head Brain Wo Cont dated 09/10/2016 TECHNIQUE: All CT scans are performed using dose optimization technique as appropriate and may inclu de automated exposure control or mA/KV adjustment according to patient size. FINDINGS: No intracranial hemorrhage, hydrocephalus or extra-axial fluid collection.No areas of brai n edema or evidence of midline shift. The paranasal sinuses and mastoids are clear. The calvarium is intact. IMPRESSION: No acute intracranial abnormality.
[2020-01-01 12:06] LABS: Basophils % 0.8 % (0-1.3); Lymphocytes % 18.6 % (15.3-44.8); RBC Red Blood Cell Count 4.99 M/uL (3.86-4.86)
[2020-01-01] MEDS ORDERED: CLOPIDOGREL 75 MG TABLET ONE (12:11)
[2020-01-01] MEDS ORDERED: NA CHLORIDE 0.9% 1,000 ML ONE (12:12)
[2020-01-01] MEDS ORDERED: FOLIC ACID 5 MG/ML VIAL ONE (12:12)
--- NOTE | 2020-01-01 12:18 | RAD REPORT ---
EXAM DESCRIPTION: RAD - Chest Single View - 01/01/2020 12:06 pm CLINICAL HISTORY: COUGH Chest pain. COMPARISON: Chest Single View dated 06/21/2019; Chest Single View dated 05/08/2019; Chest Single View dated 04/08/2019; Chest Single View dated 11/11/2018 FINDINGS: Portable technique limits examination quality. The lungs are grossly clear. The heart is normal in size. No displaced fractures. IMPRESSION: No acute intrathoracic process suspected.
[2020-01-01 12:30] LABS: ALT/SGPT 20 U/L (12-78); AST/SGOT 12 U/L (15-37); Albumin 3.9 g/dL (3.4-5.0); Alkaline Phosphatase 113 U/L (45-117); BUN Blood Urea Nitrogen 15 mg/dL (7-18); Bicarbonate 31 mmol/L (21-32); Bilirubin Direct < 0.1 mg/dL (0-0.2); Bilirubin Total 0.3 mg/dL (0.2-1.0); Glucose Level 336 mg/dL (74-106); NT PRO-BNP 47 pg/mL (<125); Potassium 3.8 mmol/L (3.5-5.1); Protein, Total 8.3 g/dL (6.4-8.2); Sodium Level 139 mmol/L (136-145); Troponin (Emerg Dept Use Only) < 0.02 ng/mL (0.0-0.045)
--- NOTE | 2020-01-01 12:33 | RAD REPORT ---
EXAM DESCRIPTION: US - Extremity Venous Uni Ltd - 01/01/2020 12:16 pm CLINICAL HISTORY: Pain;Swelling Leg swelling and edema. COMPARISON: No comparisons FINDINGS: Left lower extremity venous system was interrogated with Doppler technique. Normal flow, c ompressibility and augmentation was noted. There is no DVT present. IMPRESSION: No evidence of left lower extremity deep venous thrombosis.
[2020-01-01 12:53] LABS: Urine Blood NEGATIVE (NEG); Urine Glucose 2+ (NEG); Urine Protein NEGATIVE (NEG)
--- NOTE | 2020-01-01 12:58 | EDPHYS ---
Physician Documentation [facility] Name: Kelley Ordaz Age: 49 yrs Sex: Female : 1970 Arrival Date: 01/01/2020 Time: 11:24 Bed 14 Private MD: Edvin Perez B ED Physician Navneet Taylor HPI: 12/31 11:45 This 49 yrs old Female presents to ER via Ambulatory with complaints of ted Numbness Of Mouth, Feet Swelling, Leg Pain. 11:45 The patient presents with decreased range of motion, pain, swelling, tenderness. The ted complaints affect the lateral aspect of left calf, left calf, medial aspect of left calf and left leal. Context: The problem was sustained at an unknown site, resulted from an unknown cause. Onset: The symptoms/episode began/occurred 3 day(s) ago. Modifying factors: The symptoms are alleviated by elevating leg, the symptoms are aggravated by movement, weight bearing, bending knee. Associated signs and symptoms: The patient has no apparent associated signs or symptoms. Treatment prior to arrival includes: no previous treatment. Severity of symptoms: At their worst the symptoms were moderate, in the emergency department the symptoms are unchanged. The patient has not experienced similar symptoms in the past. 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 - Irregular menses ca1 Historical: - Allergies: 11:32 Iodine (Respiratory distress); ca1 - Home Meds: 11:32 Plavix 75 mg Oral tab 1 tab once daily [Active]; ca1 12:17 amlodipine-olmesartan oral 5-40mg oral 1 tab [Active]; aspirin 81 mg Oral chew 1 tab ca1 once daily [Active]; clonazepam 0.5 mg Oral tab [Active]; ezetimibe 10mg Oral 1 tab [Active]; Latuda 20 mg oral tab [Active]; Lipitor 80 mg oral tab [Active]; Lyrica 75mg Oral [Active]; metformin 500 mg oral tab [Active]; metoprolol tartrate 25 mg Oral tab [Active]; metoprolol tartrate 25 mg Oral tab [Active]; Novolog PenFill 100 unit/mL subcutaneous crtg [Active]; Repatha SureClick 140 mg/mL subcutaneous pnij [Active]; Triseba 54ML [Active]; Vascepa 1 gram oral cap [Active]; Vitamin D3 oral oral [Active]; - PMHx: 11:32 CAD; Depression; Diverticulitis; High Cholesterol; Hypertension; Myocardial infarction; ca1 Diabetes - IDDM; Diabetes - NIDDM; Pancreatitis; - PSHx: 11:32 Carpal Tunnel Repair; D \T\ C; Tubal ligation; Heart stents; TURP; ca1 - Immunization history:: Adult Immunizations up to date, Flu vaccine is up to date. - Social history:: Smoking status: Patient reports the use of cigarette tobacco products, smokes two packs cigarettes per day. ROS: 11:46 Constitutional: Negative for fever, chills, and weight loss, Eyes: Negative for injury, ted pain, redness, and discharge, ENT: Negative for injury, pain, and discharge, Neck: Negative for injury, pain, and swelling, Cardiovascular: Negative for chest pain, palpitations, and edema, Respiratory: Negative for shortness of breath, cough, wheezing, and pleuritic chest pain, Abdomen/GI: Negative for abdominal pain, nausea, vomiting, diarrhea, and constipation, Back: Negative for injury and pain, : Negative for injury, bleeding, discharge, and swelling, Skin: Negative for injury, rash, and discoloration, Psych: Negative for depression, anxiety, suicide ideation, homicidal ideation, and hallucinations, Allergy/Immunology: Negative for hives, rash, and allergies, Endocrine: Negative for neck swelling, polydipsia, polyuria, polyphagia, and marked weight changes. 11:46 MS/extremity: Positive for pain, swelling, tenderness, of the lateral aspect of left calf, left calf and medial aspect of left calf. 11:46 Neuro: Positive for numbness, of the left cheek, 1 hour ago, hx of this in the past. Exam: 11:47 Constitutional: This is a well developed, well nourished patient who is awake, alert, ted and in no acute distress. Head/Face: Normocephalic, atraumatic. Eyes: Pupils equal round and reactive to light, extra-ocular motions intact. Lids and lashes normal. Conjunctiva and sclera are non-icteric and not injected. Cornea within normal limits. Periorbital areas with no swelling, redness, or edema. ENT: Nares patent. No nasal discharge, no septal abnormalities noted. Tympanic membranes are normal and external auditory canals are clear. Oropharynx with no redness, swelling, or masses, exudates, or evidence of obstruction, uvula midline. Mucous membranes moist. Neck: Trachea midline, no thyromegaly or masses palpated, and no cervical lymphadenopathy. Supple, full range of motion without nuchal rigidity, or vertebral point tenderness. No Meningismus. Chest/axilla: Normal chest wall appearance and motion. Nontender with no deformity. No lesions are appreciated. Cardiovascular: Regular rate and rhythm with a normal S1 and S2. No gallops, murmurs, or rubs. Normal PMI, no JVD. No pulse deficits. Respiratory: Lungs have equal breath sounds bilaterally, clear to auscultation and percussion. No rales, rhonchi or wheezes noted. No increased work of breathing, no retractions or nasal flaring. Abdomen/GI: Soft, non-tender, with normal bowel sounds. No distension or tympany. No guarding or rebound. No evidence of tenderness throughout. Back: No spinal tenderness. No costovertebral tenderness. Full range of motion. Skin: Warm, dry with normal turgor. Normal color with no rashes, no lesions, and no evidence of cellulitis. Neuro: Awake and alert, GCS 15, oriented to person, place, time, and situation. Cranial nerves II-XII grossly intact. Motor strength 5/5 in all extremities. Sensory grossly intact. Cerebellar exam normal. Normal gait. 11:47 Musculoskeletal/extremity: ROM: no acute changes, intact in all extremities, full active range of motion, full passive range of motion, Circulation is intact in all extremities. Sensation intact. Compartment Syndrome exam of affected extremity: is normal. DVT Exam: negative Homans' sign noted on exam, no appreciated bluish discoloration, no erythema, no increased warmth, pain, swelling, tenderness, of the left leg. 13:01 ECG was reviewed by the Attending Physician. ted 13:05 Musculoskeletal/extremity: right leg no pain, no swelling, no homans , no cords, ted nvi!!!!. Vital Signs: 11:25 BP 145 / 75; Pulse 86; Resp 16 S; Temp 97.2(TE); Pulse Ox 97% on R/A; Weight 108.41 kg ca1 (R); Height 5 ft. 6 in. (167.64 cm) (R); Pain 6/10; 12:31 BP 152 / 92; Pulse 78; Resp 20; Pulse Ox 98% on R/A; ca1 13:09 BP 141 / 71; Pulse 79; Resp 17; Temp 97.5(TE); Pulse Ox 100% on R/A; mh5 11:25 Body Mass Index 38.58 (108.41 kg, 167.64 cm) ca1 NIH Stroke Scale Scores: 11:47 NIHSS Score: 0 ted 13:01 NIHSS Score: 0 ted MDM: 11:31 Patient medically screened. [facility] 11:48 Data reviewed: vital signs, nurses notes, lab test result(s), EKG, radiologic studies, ted CT scan, doppler, plain films. 13:00 ED course: all test done as requested and results relayed to dr perez, jovanna holder and ted have follow up . 13:06 ED course: . [facility] 12/31 11:44 Order name: Basic Metabolic Panel [facility] 12/31 11:44 Order name: CBC with Diff [facility] 12/31 11:44 Order name: LFT's; Complete Time: 12:55 [facility] 12/31 11:44 Order name: Magnesium; Complete Time: 12:55 [facility] 12/31 11:44 Order name: NT PRO-BNP; Complete Time: 12:55 ted 12/31 11:44 Order name: Troponin (emerg Dept Use Only); Complete Time: 12:55 [facility] 12/31 11:44 Order name: XRAY Chest (1 view); Complete Time: 12:55 [facility] 12/31 11:44 Order name: US Extremity Venous Unilateral Ltd; Complete Time: 12:55 [facility] 12/31 11:44 Order name: CT Head Brain wo Cont: left face numbness, order per dr perez; Complete [facility] Time: 12:55 12/31 11:45 Order name: Basic Metabolic Panel; Complete Time: 12:55 EDMS 12/31 11:45 Order name: CBC with Automated Diff; Complete Time: 12:55 EDMS 12/31 12:07 Order name: Urine Dipstick--Ancillary (enter results) 12/31 11:44 Order name: EKG; Complete Time: 11:46 ted 12/31 11:44 Order name: Cardiac monitoring; Complete Time: 12:10 ted 12/31 11:44 Order name: EKG - Nurse/Tech; Complete Time: 12:26 [facility] 12/31 11:44 Order name: IV Saline Lock; Complete Time: 12:10 [facility] 12/31 11:44 Order name: Labs collected and sent; Complete Time: 12: [facility] 12/31 11:44 Order name: O2 Per Protocol; Complete Time: 12:11 [facility] 12/31 11:44 Order name: O2 Sat Monitoring; Complete Time: 12:11 [facility] 12/31 11:44 Order name: Urine Dipstick-Ancillary (obtain specimen); Complete Time: 12:10 [facility] EC:01 Rate is 77 beats/min. Rhythm is regular. QRS [place] is Normal. [place] interval is normal. QRS ted interval is normal. QT interval is normal. No Q waves. T waves are Normal. No ST changes noted. Administered Medications: Discontinued: NS 0.9% 1000 ml IV at 125 ml/hr continuous 12:20 Drug: PlaVIX 75 mg Route: PO; ca1 13:12 Follow up: Response: No adverse reaction ca1 12:21 Drug: NS 0.9% 1000 ml Route: IV; Rate: 125 ml/hr; Site: right antecubital; ca1 13:13 Follow up: Response: No adverse reaction; IV Intake: 125ml ca1 12:22 Drug: foLIC Acid 1 mg Route: IVPB; Site: right antecubital; ca1 13:13 Follow up: Response: No adverse reaction; IV Status: Completed infusion ca1 13:15 Drug: Aspirin 81 mg Route: PO; ca1 13:33 Follow up: Response: Medication administered at discharge. ca1 13:20 Drug: Insulin Regular Human 6 units {Co-Signature: hb (Mery Masterson RN).} Route: ca1 Sub-Q; Site: left lower abdomen; 13:34 Follow up: Response: Medication administered at discharge.; Medication administered at ca1 discharge. Pt refused to stay for BGL rechek Disposition: 01/01/20 12:58 Discharged to Home. Impression: Pain in left leg, Type 2 diabetes mellitus. - Condition is Stable. - Discharge Instructions: Type 2 Diabetes Mellitus, Diagnosis, Adult, Musculoskeletal Pain, Stroke Prevention, Type 2 Diabetes Mellitus, Diagnosis, Adult, [id number], Stroke Prevention, [id number], Form - Return To Work. - Medication Reconciliation Form, Thank You Letter, Antibiotic Education, Prescription Opioid Use, Work release form form. - Follow up: Edvin Perez MD; When: 2 - 3 days; Reason: Recheck today's complaints, Continuance of care, Re-evaluation by your physician. Follow up: Dieter Colorado MD; When: 2 - 3 days; Reason: Recheck today's complaints, Re-evaluation by your physician. - Problem is new. - Symptoms have improved. NIH Stroke Scale - NIH Stroke Score Date: 01/01/2020 Time: 11:47 Total Score = 0 1a. Level of Consciousness (LOC) - 0(Alert) 1b. Level of Consciousness (LOC) (Year \T\ Age) - 0(Both) 1c. LOC Commands (Open \T\ Closes Eyes/Personnel Officer) - 0(Both) 2. Best Gaze (Lateral Gaze Paresis) - 0(Normal) 3. Visual Field Loss - 0(No visual loss) 4. Facial Palsy - 0(Normal) 5a. Left Arm: Motor (10-second hold) - 0(No drift) 5b. Right Arm: Motor (10-second hold) - 0(No drift) 6a. Left Leg: Motor (5-second hold - always test supine) - 0(No drift) 6b. Right Leg: Motor (5-second hold - always test supine) - 0(No drift) 7. Limb Ataxia (finger/nose \T\ heel/leal - test with eyes open) - 0(Absent) 8. Sensory Loss (pinprick arms/legs/face) - 0(Normal) 9. Best Language: Aphasia (description/naming/reading) - 0(No aphasia) 10. Dysarthria (speech clarity - read or repeat words) - 0(Normal) 11. Extinction and Inattention (visual/tactile/auditory/spatial/personal) - 0(No abnormality) Initials: [facility] NIH Stroke Scale - NIH Stroke Score Date: 01/01/2020 Time: 13:01 Total Score = 0 1a. Level of Consciousness (LOC) - 0(Alert) 1b. Level of Consciousness (LOC) (Year \T\ Age) - 0(Both) 1c. LOC Commands (Open \T\ Closes Eyes/Personnel Officer) - 0(Both) 2. Best Gaze (Lateral Gaze Paresis) - 0(Normal) 3. Visual Field Loss - 0(No visual loss) 4. Facial Palsy - 0(Normal) 5a. Left Arm: Motor (10-second hold) - 0(No drift) 5b. Right Arm: Motor (10-second hold) - 0(No drift) 6a. Left Leg: Motor (5-second hold - always test supine) - 0(No drift) 6b. Right Leg: Motor (5-second hold - always test supine) - 0(No drift) 7. Limb Ataxia (finger/nose \T\ heel/leal - test with eyes open) - 0(Absent) 8. Sensory Loss (pinprick arms/legs/face) - 0(Normal) 9. Best Language: Aphasia (description/naming/reading) - 0(No aphasia) 10. Dysarthria (speech clarity - read or repeat words) - 0(Normal) 11. Extinction and Inattention (visual/tactile/auditory/spatial/personal) - 0(No abnormality) Initials: ted Signatures: Dispatcher [employer] EDNavneet Howard MD MD cha Acob, ABI Shin RN ca1 Mery Masterson RN Corrections: (The following items were deleted from the chart) 13:34 12:58 01/01/2020 12:58 Discharged to Home. Impression: Pain in left leg; Type 2 ca1 diabetes mellitus. Condition is Stable. Forms are Medication Reconciliation Form, Thank You Letter, Antibiotic Education, Prescription Opioid Use. Follow up: Edvin Perez; When: 2 - 3 days; Reason: Recheck today's complaints, Continuance of care, Re-evaluation by your physician. Follow up: Dieter Colorado; When: 2 - 3 days; Reason: Recheck today's complaints, Re-evaluation by your physician. Problem is new. Symptoms have improved. ted
--- NOTE | 2020-01-01 12:58 | ER ---
Nurse's Notes [facility] Name: Kelley Ordaz Age: 49 yrs Sex: Female : 1970 Arrival Date: 01/01/2020 Time: 11:24 Bed 14 Private MD: Edvin Perez B Diagnosis: Pain in left leg;Type 2 diabetes mellitus Presentation: 12/31 11:25 Chief complaint: Patient states: an hour ago, numbness on left side of cheek. 4 days ca1 ago, leg cramps on L side. Today, pain on L leg, at the calf, hurts to walk. Reports swelling on both legs. Coronavirus screen: Proceed with normal triage. Patient denies a cough. Patient denies shortness of breath or difficulty breathing. Patient denies measured and/or subjective temperature greater than 100.4F prior to today's visit. Patient denies travel on a cruise ship or to a country the [facility] currently lists as an affected area. Patient denies contact with known and/or suspected case of COVID-19. Ebola Screen: Patient negative for fever greater than or equal to 101.5 degrees Fahrenheit, and additional compatible Ebola Virus Disease symptoms Patient denies exposure to infectious person. Patient denies travel to an Ebola-affected area in the 21 days before illness onset. No symptoms or risks identified at this time. Initial Sepsis Screen: Does the patient meet any 2 criteria? No. Patient's initial sepsis screen is negative. Does the patient have a suspected source of infection? No. Patient's initial sepsis screen is negative. Risk Assessment: Do you want to hurt yourself or someone else? Patient reports no desire to harm self or others. Onset of symptoms was January 01, 2020. 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 ca1 Historical: - Allergies: 11:32 Iodine (Respiratory distress); ca1 - Home Meds: 11:32 Plavix 75 mg Oral tab 1 tab once daily [Active]; ca1 12:17 amlodipine-olmesartan oral 5-40mg oral 1 tab [Active]; aspirin 81 mg Oral chew 1 tab ca1 once daily [Active]; clonazepam 0.5 mg Oral tab [Active]; ezetimibe 10mg Oral 1 tab [Active]; Latuda 20 mg oral tab [Active]; Lipitor 80 mg oral tab [Active]; Lyrica 75mg Oral [Active]; metformin 500 mg oral tab [Active]; metoprolol tartrate 25 mg Oral tab [Active]; metoprolol tartrate 25 mg Oral tab [Active]; Novolog PenFill 100 unit/mL subcutaneous crtg [Active]; Repatha SureClick 140 mg/mL subcutaneous pnij [Active]; Triseba 54ML [Active]; Vascepa 1 gram oral cap [Active]; Vitamin D3 oral oral [Active]; - PMHx: 11:32 CAD; Depression; Diverticulitis; High Cholesterol; Hypertension; Myocardial infarction; ca1 Diabetes - IDDM; Diabetes - NIDDM; Pancreatitis; - PSHx: 11:32 Carpal Tunnel Repair; D \\T\\ C; Tubal ligation; Heart stents; TURP; ca1 - Immunization history:: Adult Immunizations up to date, Flu vaccine is up to date. - Social history:: Smoking status: Patient reports the use of cigarette tobacco products, smokes two packs cigarettes per day. Screenin:37 Abuse screen: Denies threats or abuse. Denies injuries from another. Nutritional ca1 screening: No deficits noted. Tuberculosis screening: No symptoms or risk factors identified. Fall Risk IV access (20 points). Assessment: 11:37 General: Appears in no apparent distress. comfortable, Behavior is calm, cooperative, ca1 appropriate for age. Pain: Complains of pain in left calf Pain currently is 5 out of 10 on a pain scale. Pain began today Is intermittent, Aggravated by weight bearing. Neuro: Level of Consciousness is awake, alert, obeys commands, Oriented to person, place, time, situation, Appropriate for age. Cardiovascular: Heart tones S1 S2 present Capillary refill < 3 seconds Patient's skin is warm and dry. Respiratory: Airway is patent Respiratory effort is even, unlabored, Respiratory pattern is regular, symmetrical, Breath sounds are clear bilaterally. GI: Abdomen is round non-distended, Bowel sounds present X 4 quads. Abd is soft and non tender X 4 quads. : No signs and/or symptoms were reported regarding the genitourinary system. EENT: No signs and/or symptoms were reported regarding the EENT system. Derm: Skin is intact, is healthy with good turgor, Skin is pink, warm \\T\\ dry. Musculoskeletal: Circulation, motion, and sensation intact. Capillary refill < 3 seconds. 11:57 Reassessment: Pt to CT. ca1 12:28 Reassessment: Patient appears in no apparent distress at this time. Patient and/or ca1 family updated on plan of care and expected duration. Pain level reassessed. Patient is alert, oriented x 3, equal unlabored respirations, skin warm/dry/pink. 12:31 Reassessment: : Ariel Astorga [phone]. Call for updates. ca1 13:29 Reassessment: Patient appears in no apparent distress at this time. Instructed pt to ca1 stay 30-mins to an hour to recheck BGL, pt refused and stated, "I have a Glucometer at home I will just recheck it at home". Vital Signs: 11:25 BP 145 / 75; Pulse 86; Resp 16 S; Temp 97.2(TE); Pulse Ox 97% on R/A; Weight 108.41 kg ca1 (R); Height 5 ft. 6 in. (167.64 cm) (R); Pain 6/10; 12:31 BP 152 / 92; Pulse 78; Resp 20; Pulse Ox 98% on R/A; ca1 13:09 BP 141 / 71; Pulse 79; Resp 17; Temp 97.5(TE); Pulse Ox 100% on R/A; mh5 11:25 Body Mass Index 38.58 (108.41 kg, 167.64 cm) ca1 NIH Stroke Scale Scores: 11:47 NIHSS Score: 0 ted 13:01 NIHSS Score: 0 [facility] ED Course: 11:24 Patient arrived in ED. ag5 11:24 Edvin Perez MD is Private Physician. ag5 11:28 Triage completed. ca1 11:31 Navneet Taylor MD is Attending Physician. ted 11:32 Aleida Motley RN is Primary Nurse. ca1 11:32 Arm band placed on right wrist. ca1 11:37 Patient has correct armband on for positive identification. Placed in gown. Bed in low ca1 position. Call light in reach. Side rails up X 1. school lunch monitor on. Pulse ox on. NIBP on. Warm blanket given. 11:54 Initial lab(s) drawn, by me, sent to lab. Inserted saline lock: 20 gauge in right ca1 antecubital area, using aseptic technique. Blood collected. 11:54 No provider procedures requiring assistance completed. ca1 11:57 Note: ct will give to u/s. hr 11:58 CT Head Brain wo Cont: left face numbness, order per dr perez In Process Unspecified. EDMS 12:06 XRAY Chest (1 view) In Process Unspecified. EDMS 12:17 US Extremity Venous Unilateral Ltd In Process Unspecified. EDMS 12:28 Urine collected: clean catch specimen, clear, Amount Voided: 90mL EKG done, by ED ca1 staff, reviewed by Navneet Taylor MD. 12:57 Edvin Perez MD is Referral Physician. ted 12:57 Dieter Colorado MD is Referral Physician. ted 13:34 IV discontinued, intact, bleeding controlled, No redness/swelling at site. Pressure ca1 dressing applied. Administered Medications: Discontinued: NS 0.9% 1000 ml IV at 125 ml/hr continuous 12:20 Drug: PlaVIX 75 mg Route: PO; ca1 13:12 Follow up: Response: No adverse reaction ca1 12:21 Drug: NS 0.9% 1000 ml Route: IV; Rate: 125 ml/hr; Site: right antecubital; ca1 13:13 Follow up: Response: No adverse reaction; IV Intake: 125ml ca1 12:22 Drug: foLIC Acid 1 mg Route: IVPB; Site: right antecubital; ca1 13:13 Follow up: Response: No adverse reaction; IV Status: Completed infusion ca1 13:15 Drug: Aspirin 81 mg Route: PO; ca1 13:33 Follow up: Response: Medication administered at discharge. ca1 13:20 Drug: Insulin Regular Human 6 units {Co-Signature: hb (Mery Masterson RN).} Route: ca1 Sub-Q; Site: left lower abdomen; 13:34 Follow up: Response: Medication administered at discharge.; Medication administered at ca1 discharge. Pt refused to stay for BGL rechek Intake: 13:13 IV: 125ml; Total: 125ml. ca1 Outcome: 12:58 Discharge ordered by . ted 13:34 Discharged to home ambulatory. ca1 13:34 Condition: stable 13:34 Discharge instructions given to patient, Instructed on discharge instructions, follow up and referral plans. Demonstrated understanding of instructions, follow-up care. 13:34 Patient left the ED. ca1 NIH Stroke Scale - NIH Stroke Score Date: 01/01/2020 Time: 11:47 Total Score = 0 1a. Level of Consciousness (LOC) - 0(Alert) 1b. Level of Consciousness (LOC) (Year \\T\\ Age) - 0(Both) 1c. LOC Commands (Open \\T\\ Closes Eyes/Art Glass Designer) - 0(Both) 2. Best Gaze (Lateral Gaze Paresis) - 0(Normal) 3. Visual Field Loss - 0(No visual loss) 4. Facial Palsy - 0(Normal) 5a. Left Arm: Motor (10-second hold) - 0(No drift) 5b. Right Arm: Motor (10-second hold) - 0(No drift) 6a. Left Leg: Motor (5-second hold - always test supine) - 0(No drift) 6b. Right Leg: Motor (5-second hold - always test supine) - 0(No drift) 7. Limb Ataxia (finger/nose \\T\\ heel/leal - test with eyes open) - 0(Absent) 8. Sensory Loss (pinprick arms/legs/face) - 0(Normal) 9. Best Language: Aphasia (description/naming/reading) - 0(No aphasia) 10. Dysarthria (speech clarity - read or repeat words) - 0(Normal) 11. Extinction and Inattention (visual/tactile/auditory/spatial/personal) - 0(No abnormality) Initials: [facility] NIH Stroke Scale - NIH Stroke Score Date: 01/01/2020 Time: 13:01 Total Score = 0 1a. Level of Consciousness (LOC) - 0(Alert) 1b. Level of Consciousness (LOC) (Year \\T\\ Age) - 0(Both) 1c. LOC Commands (Open \\T\\ Closes Eyes/Art Glass Designer) - 0(Both) 2. Best Gaze (Lateral Gaze Paresis) - 0(Normal) 3. Visual Field Loss - 0(No visual loss) 4. Facial Palsy - 0(Normal) 5a. Left Arm: Motor (10-second hold) - 0(No drift) 5b. Right Arm: Motor (10-second hold) - 0(No drift) 6a. Left Leg: Motor (5-second hold - always test supine) - 0(No drift) 6b. Right Leg: Motor (5-second hold - always test supine) - 0(No drift) 7. Limb Ataxia (finger/nose \\T\\ heel/leal - test with eyes open) - 0(Absent) 8. Sensory Loss (pinprick arms/legs/face) - 0(Normal) 9. Best Language: Aphasia (description/naming/reading) - 0(No aphasia) 10. Dysarthria (speech clarity - read or repeat words) - 0(Normal) 11. Extinction and Inattention (visual/tactile/auditory/spatial/personal) - 0(No abnormality) Initials: [facility] Signatures: Dispatcher [employer] EDNavneet Howard MD MD cha Rod, Aleyda Carson [facility] Aleida Motley RN RN ca1 Lorenza Blake 5 Mery Masterson RN
[2020-01-01] MEDS ORDERED: ASPIRIN EC 81 MG TAB PO ONE (13:23)
[2020-01-01] MEDS ORDERED: INSULIN -REGULAR HUMAN 50 UNIT/0.5 ML ML ONE (13:23)
[2020-01-01 13:59] VITALS: BP 141/71; TEMP 97.5; O2SAT 100
--- NOTE | 2020-01-02 07:56 | EKG ---
Test Date: 2020-01-01 Test Time: 12:27:01 Dentistry Teacher: ELIU MEASUREMENT RESULTS: Intervals: Rate: 77 RI: 128 QRSD: 74 QT: 402 QTc: 454 [place]: P: 14 RI: 128 QRS: 39 T: 14 INTERPRETIVE STATEMENTS: Normal sinus rhythm Normal ECG Compared to ECG 06/21/2019 10:24:28 No significant changes Electronically Signed On 01-02-20 07:55:54 CDT by Rasheed Romero
== END 2020-01-01 13:34 | disposition home or self-care (01) ==
LOC: ER 11:20
DX: M79.605 Pain in left leg (principal); E11.9 Type 2 diabetes mellitus without complications; F17.210 Nicotine dependence, cigarettes, uncomplicated; I10 Essential (primary) hypertension; E78.00 Pure hypercholesterolemia, unspecified; F32.9 Major depressive disorder, single episode, unspecified; Z95.818 Presence of other cardiac implants and grafts
CPT/HCPCS: 93005; 85025; 80048; 36415; 83735; 82947; 80076; 81003; 84484; 83880; 70450; 71045; 93971; J7030; 96365; 96372; 99284

== ENCOUNTER 2020-01-23 09:54 | Observation (INO) | payer BC ==
[2020-01-23] MEDS ORDERED: ONDANSETRON 4 MG/2 ML VIAL ONE ×2 (10:53→14:11)
[2020-01-23] MEDS ORDERED: MORPHINE 4 MG/ML SYR ONE ×2 (10:53→14:11)
[2020-01-23] MEDS ORDERED: NA CHLORIDE 0.9% 1,000 ML ONE (10:54)
[2020-01-23 10:57] LABS: Absolute Lymphocytes (CBC) 1.9 K/uL (0.7-4.9); Basophils % 0.6 % (0-1.3); Hematocrit 40.6 % (36.0-45.0); Lymphocytes % 16.6 % (15.3-44.8); MPV 9.4 fL (7.6-11.3); RBC Red Blood Cell Count 4.64 M/uL (3.86-4.86)
[2020-01-23 11:27] LABS: ALT/SGPT 21 U/L (12-78); AST/SGOT 9 U/L (15-37); Albumin 3.5 g/dL (3.4-5.0); Alkaline Phosphatase 93 U/L (45-117); BUN Blood Urea Nitrogen 14 mg/dL (7-18); Bicarbonate 26 mmol/L (21-32); Bilirubin Direct < 0.1 mg/dL (0-0.2); Bilirubin Total 0.2 mg/dL (0.2-1.0); Glucose Level 296 mg/dL (74-106); Lipase 224 U/L (73-393); Protein, Total 7.7 g/dL (6.4-8.2); Sodium Level 138 mmol/L (136-145)
[2020-01-23] MEDS ORDERED: FENTANYL CITR 100 MCG/2 ML ONE (11:28)
--- NOTE | 2020-01-23 11:33 | RAD REPORT ---
EXAM DESCRIPTION: CT - Abdomen Pelvis Wo Contrast - 01/23/2020 10:54 am CLINICAL HISTORY: Prior Hx of pancreatitis;Abd pain COMPARISON: Stone Protocol dated 07/02/2019 TECHNIQUE: Axial [address] imaging of the abdomen and pelvis was performed without IV contrast. No IV contrast was given because of allergy, abnormal renal function, patient refusal or physician re quest. Oral contrast was given. All CT scans are performed using dose optimization technique as appropriate and may include automated exposure control or mA/KV adjustment according to patient size. FINDINGS: No suspicious findings in the lung bases. Liver and spleen show no suspicious findings. Gallbladder is mostly contracted. No biliary tree dilat ation. Pancreatic tissue is homogeneous. No discrete pancreatic mass identifiable. There is trace stranding adjacent to the body of the pancreas. No fluid in the peripancreatic tissues. Anterior pararenal fas bindu shows no suspicious finding. Small accessory splenic nodule present at the tail of the pancreas. No hydronephrosis or suspicious renal mass. No significant adrenal finding. Isodense renal masses an d pyelonephritis cannot be excluded in the absence of IV contrast. The urinary bladder is without sig nificant finding. Uterus and ovaries show no suspicious findings. No dilated bowel loops or bowel wall thickening. No free air, free fluid or inflammatory stranding. No hernia, mass or bulky lymphadenopathy. Disc and bony degenerative changes are present. IMPRESSION: Pancreas appears mildly edematous with trace amount of stranding along the margins of th e pancreas. Findings are minimal but could indicate an early acute pancreatitis. Correlation is neede d with any clinical or laboratory supporting findings. Exam is otherwise without an acute or significant finding. Full assessment is limited is the absence of IV contrast.
--- NOTE | 2020-01-23 11:54 | RAD REPORT ---
EXAM DESCRIPTION: RAD - Chest Single View - 01/23/2020 11:36 am CLINICAL HISTORY: LUQ pain COMPARISON: Single-view chest January 01, 2020, CT abdomen and pelvis January 23, 2020 TECHNIQUE: AP portable chest image was obtained 01/23/2020 11:36 am . FINDINGS: Lung volumes are low accentuating interstitial pattern. No focal mass or consolidation. No focal left base abnormality seen. There is no free air under the diaphragm. Heart and vasculature are normal. No measurable pleural effusion and no pneumothorax. No acute bony abnormality seen. No acute aortic findings suspected. IMPRESSION: No acute cardiopulmonary process.
--- NOTE | 2020-01-23 12:09 | ER ---
Nurse's Notes [facility] Name: Kelley Ordaz Age: 49 yrs Sex: Female : 1970 Arrival Date: 01/23/2020 Time: 09:56 Bed 14 Private MD: Edvin Perez B Diagnosis: Abdominal and pelvic pain;Acute pancreatitis Presentation: 01/22 10:06 Chief complaint: Patient states: massive pain o left lateral chest under her breast iw radiates from to back and shooting pain to nipple, pain started last night and is constant , getting worse. Coronavirus screen: Proceed with normal triage. Patient denies a cough. Patient denies shortness of breath or difficulty breathing. Patient denies measured and/or subjective temperature greater than 100.4F prior to today's visit. Patient denies travel on a cruise ship or to a country the [facility] currently lists as an affected area. Patient denies contact with known and/or suspected case of COVID-19. Ebola Screen: Patient negative for fever greater than or equal to 101.5 degrees Fahrenheit, and additional compatible Ebola Virus Disease symptoms Patient denies exposure to infectious person. Patient denies travel to an Ebola-affected area in the 21 days before illness onset. No symptoms or risks identified at this time. Initial Sepsis Screen: Does the patient meet any 2 criteria? No. Patient's initial sepsis screen is negative. Does the patient have a suspected source of infection? No. Patient's initial sepsis screen is negative. Risk Assessment: Do you want to hurt yourself or someone else? Patient reports no desire to harm self or others. Onset of symptoms was January 22, 2020. 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: 11:32 LMP N/A - Uterine Ablation ca1 Historical: - Allergies: 10:11 Iodine (Respiratory distress); iw - Home Meds: 10:11 amlodipine-olmesartan 5-40mg Oral 1 tab [Active]; aspirin 81 mg Oral chew 1 tab once iw daily [Active]; clonazepam 0.5 mg Oral tab [Active]; ezetimibe 10mg Oral 1 tab [Active]; Latuda 20 mg Oral tab [Active]; Lipitor 80 mg Oral tab [Active]; Lyrica 75mg Oral [Active]; metformin 500 mg Oral tab [Active]; metoprolol tartrate 25 mg Oral tab 2 times per day [Active]; meloxicam oral oral once daily [Active]; Novolog PenFill 100 unit/mL subcutaneous crtg 25 unit three times a day [Active]; Plavix 75 mg Oral tab 1 tab once daily [Active]; Repatha SureClick 140 mg/mL subcutaneous pnij [Active]; Triseba SQ 60 unit [Active]; Vascepa 1 gram Oral cap [Active]; Vitamin D3 Oral [Active]; - PMHx: 10:11 CAD; Depression; Diabetes - IDDM; Diabetes - NIDDM; Diverticulitis; High Cholesterol; iw Hypertension; Myocardial infarction; Pancreatitis; - PSHx: 10:11 Carpal Tunnel Repair; D \T\ C; Tubal ligation; Heart stents; TURP; iw - Immunization history:: Adult Immunizations up to date. - Social history:: Smoking status: Patient reports the use of cigarette tobacco products, smokes one pack cigarettes per day. Screenin:50 Abuse screen: Denies threats or abuse. Denies injuries from another. Nutritional ca1 screening: No deficits noted. Tuberculosis screening: No symptoms or risk factors identified. Fall Risk IV access (20 points). Assessment: 10:50 General: Appears in no apparent distress. comfortable, Behavior is calm, cooperative, ca1 appropriate for age. Pain: Complains of pain in left upper quadrant Pain radiates to left mid back Pain currently is 8 out of 10 on a pain scale. Pain began 1 day ago. Is intermittent. Neuro: Level of Consciousness is awake, alert, obeys commands, Oriented to person, place, time, situation, Appropriate for age. Cardiovascular: Heart tones S1 S2 present Capillary refill < 3 seconds Patient's skin is warm and dry. Respiratory: Airway is patent Respiratory effort is even, unlabored, Respiratory pattern is regular, symmetrical, Breath sounds are clear bilaterally. GI: Abdomen is round non-distended, Bowel sounds present X 4 quads. Abd is soft X 4 quads Abdomen is tender to palpation in left upper quadrant Reports nausea. : No signs and/or symptoms were reported regarding the genitourinary system. EENT: No signs and/or symptoms were reported regarding the EENT system. Derm: Skin is intact, is healthy with good turgor, Skin is pink, warm \T\ dry. Musculoskeletal: Circulation, motion, and sensation intact. Capillary refill < 3 seconds. 10:56 Reassessment: PT to CT. ca1 11:36 Reassessment: Patient appears in no apparent distress at this time. Patient and/or ca1 family updated on plan of care and expected duration. Pain level reassessed. Patient is alert, oriented x 3, equal unlabored respirations, skin warm/dry/pink. 12:30 Reassessment: Patient appears in no apparent distress at this time. Patient and/or ca1 family updated on plan of care and expected duration. Pain level reassessed. Patient is alert, oriented x 3, equal unlabored respirations, skin warm/dry/pink. 13:18 Reassessment: Patient appears in no apparent distress at this time. Patient and/or ca1 family updated on plan of care and expected duration. Pain level reassessed. Patient is alert, oriented x 3, equal unlabored respirations, skin warm/dry/pink. 13:41 Reassessment: Attempted to call report, nurse to call back. sv 14:10 Reassessment: Patient appears in no apparent distress at this time. Patient and/or ca1 family updated on plan of care and expected duration. Pain level reassessed. Patient is alert, oriented x 3, equal unlabored respirations, skin warm/dry/pink. 14:32 Reassessment: Called for report. Pt's room is changed and the assigned RN. RN will call ca1 back in 5 minutes. Vital Signs: 10:06 BP 151 / 78; Pulse 81; Resp 16; Temp 98.3; Pulse Ox 97% on R/A; Weight 108.86 kg; iw Height 5 ft. 6 in. (167.64 cm); Pain 9/10; 11:10 BP 103 / 87; Pulse 69; Resp 17 S; Pulse Ox 99% on R/A; ca1 11:36 BP 117 / 69; Pulse 83; Resp 20; Pulse Ox 98% on R/A; ca1 12:02 Pain 5/10; ca1 12:50 BP 120 / 69; Pulse 71; Resp 14; Pulse Ox 98% ; sv 13:30 BP 137 / 64; Pulse 68; Resp 17 S; Pulse Ox 97% on R/A; ca1 14:32 BP 125 / 65; Pulse 63; Resp 18 S; Pulse Ox 96% on R/A; ca1 10:06 Body Mass Index 38.74 (108.86 kg, 167.64 cm) iw ED Course: 09:56 Patient arrived in ED. ag5 09:56 Edvin Perez MD is Private Physician. ag5 09:59 Ted Booker MD is Attending Physician. kdr 10:08 Triage completed. iw 10:28 Aleida Motley, RN is Primary Nurse. ca1 10:42 No provider procedures requiring assistance completed. Initial lab(s) drawn, by me, ca1 sent to lab. Inserted saline lock: 20 gauge in right antecubital area, using aseptic technique. Blood collected. 10:50 Patient has correct armband on for positive identification. Placed in gown. Bed in low ca1 position. Call light in reach. Side rails up X 1. residential monitor on. Pulse ox on. NIBP on. Warm blanket given. 10:53 Arm band placed on right wrist. ca1 10:55 CT Abd/Pelvis - Without Contrast In Process Unspecified. EDMS 11:26 X-ray(s) taken. sv 11:37 CXR XRAY In Process Unspecified. EDMS 11:38 EKG done, by health and safety technician. reviewed by Ted Booker MD. tc 12:09 Mj Patterson DO is Hospitalizing Provider. kdr 14:43 Patient admitted, IV remains in place. ca1 Administered Medications: 11:05 Drug: NS 0.9% 500 ml Route: IV; Rate: bolus; Site: right antecubital; ca1 11:40 Follow up: Response: No adverse reaction; IV Status: Completed infusion ca1 11:11 Drug: Zofran (Ondansetron) 4 mg Route: IVP; Site: right antecubital; ca1 12:03 Follow up: Response: No adverse reaction; Nausea is decreased ca1 11:23 Not Given (Hemodynamic Parameters): morphine 4 mg IVP once; RASS on ADMIN: Combtv4, ca1 Very Agttd3, Agttd2, Rstlss1, AlertClm0, Drwsy-1, Lt Sdtn-2, Mod Sdtn-3, Dp Sdtn-4, UnArsble-5 11:24 Drug: fentaNYL (PF) 25 mcg {Note: RASS - 0.} Route: IVP; Site: right antecubital; ca1 12:02 Follow up: Pain 5/10 Adult; Response: No adverse reaction; Pain is decreased; RASS: ca1 Alert and Calm (0) 14:08 Drug: Zofran (Ondansetron) 4 mg Route: IVP; Site: right antecubital; sv 14:30 Follow up: Response: No adverse reaction; Nausea is decreased ca1 14:11 Drug: morphine 4 mg {Note: rass0.} Route: IVP; Site: right antecubital; sv 14:30 Follow up: Response: No adverse reaction; Pain is decreased; RASS: Alert and Calm (0) ca1 Outcome: 12:09 Decision to Hospitalize by Provider. kdr 14:44 Admitted to Med/surg accompanied by tech, via wheelchair, room 215, with chart, Report ca1 called to ABI Rangel 14:44 Condition: stable 14:44 Instructed on the need for admit. 14:51 Patient left the ED. ca1 Signatures: Dispatcher [employer] Mayra Boykin RN RN sv Rittger, Kevin, MD MD kdr Williams, Irene, RN RN iw Callis, Tiffany, clinical genetics laboratory chief EKG Ttc AcAleida cr RN RN ca1 Hayden, [facility] ag5
--- NOTE | 2020-01-23 12:10 | EDPHYS ---
Physician Documentation [facility] Name: Kelley Ordaz Age: 49 yrs Sex: Female : 1970 Arrival Date: 01/23/2020 Time: 09:56 Bed 14 Private MD: Edvin Perez B ED Physician Ted Booker HPI: 01/22 15:43 This 49 yrs old Female presents to ER via Ambulatory with complaints of kdr Abdominal Pain LUQ and lower left chest pain. 15:43 The patient presents with abdominal pain in the left upper quadrant. Onset: The kdr symptoms/episode began/occurred gradually, last night, The patient has been having intermittent LUQ pain and left chest pain since . 15:48 The symptoms radiate to left back. Associated signs and symptoms: Pertinent positives: kdr nausea, shortness of breath, Pertinent negatives: anorexia, blood in stools, constipation, diarrhea, dysuria, fever, headache, hematuria, palpitations, vaginal discharge, vomiting, vomiting blood. The symptoms are described as achy, sharp, steady. Modifying factors: The symptoms are alleviated by nothing, the symptoms are aggravated by coughing, breathing deeply, movement. Severity of pain: At its worst the pain was moderate severe just prior to arrival, in the emergency department the pain has improved mildly. The patient has experienced similar episodes in the past, a few times, has been occurring sporadically since prior admission a year ago for pancreatitis. The patient has not recently seen a physician. 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 LMP N/A - Uterine Ablation ca1 Historical: - Allergies: 10:11 Iodine (Respiratory distress); iw - Home Meds: 10:11 amlodipine-olmesartan 5-40mg Oral 1 tab [Active]; aspirin 81 mg Oral chew 1 tab once iw daily [Active]; clonazepam 0.5 mg Oral tab [Active]; ezetimibe 10mg Oral 1 tab [Active]; Latuda 20 mg Oral tab [Active]; Lipitor 80 mg Oral tab [Active]; Lyrica 75mg Oral [Active]; metformin 500 mg Oral tab [Active]; metoprolol tartrate 25 mg Oral tab 2 times per day [Active]; meloxicam oral oral once daily [Active]; Novolog PenFill 100 unit/mL subcutaneous crtg 25 unit three times a day [Active]; Plavix 75 mg Oral tab 1 tab once daily [Active]; Repatha SureClick 140 mg/mL subcutaneous pnij [Active]; Triseba SQ 60 unit [Active]; Vascepa 1 gram Oral cap [Active]; Vitamin D3 Oral [Active]; - PMHx: 10:11 CAD; Depression; Diabetes - IDDM; Diabetes - NIDDM; Diverticulitis; High Cholesterol; iw Hypertension; Myocardial infarction; Pancreatitis; - PSHx: 10:11 Carpal Tunnel Repair; D \T\ C; Tubal ligation; Heart stents; TURP; iw - Immunization history:: Adult Immunizations up to date. - Social history:: Smoking status: Patient reports the use of cigarette tobacco products, smokes one pack cigarettes per day. ROS: 15:48 Constitutional: Negative for fever, chills, and weight loss, Eyes: Negative for injury, kdr pain, redness, and discharge, Neck: Negative for injury, pain, and swelling, Cardiovascular: Negative for chest pain, palpitations, and edema, Respiratory: Negative for shortness of breath, cough, wheezing, and pleuritic chest pain, Back: Negative for injury and pain, : Negative for injury, bleeding, discharge, and swelling, MS/Extremity: Negative for injury and deformity, Skin: Negative for injury, rash, and discoloration, Neuro: Negative for headache, weakness, numbness, tingling, and seizure activity. Psych: Negative for depression, anxiety, suicide ideation, homicidal ideation, and hallucinations, Allergy/Immunology: Negative for hives, rash, and allergies, Endocrine: Negative for neck swelling, polydipsia, polyuria, polyphagia, and marked weight changes, Hematologic/Lymphatic: Negative for swollen nodes, abnormal bleeding, and unusual bruising. 15:48 Abdomen/GI: Positive for abdominal pain, nausea, Negative for black/tarry stool, rectal pain, rectal bleeding, bowel incontinence. Exam: 11:47 ECG was reviewed by the Attending Physician. kdr 15:48 Constitutional: This is a well developed, well nourished patient who is awake, alert, kdr and in no acute distress. Head/Face: Normocephalic, atraumatic. Eyes: Pupils equal round and reactive to light, extra-ocular motions intact. Lids and lashes normal. Conjunctiva and sclera are non-icteric and not injected. Cornea within normal limits. Periorbital areas with no swelling, redness, or edema. Neck: Trachea midline, no thyromegaly or masses palpated, and no cervical lymphadenopathy. Supple, full range of motion without nuchal rigidity, or vertebral point tenderness. No Meningismus. Chest/axilla: Normal chest wall appearance and motion. Nontender with no deformity. No lesions are appreciated. Cardiovascular: Regular rate and rhythm with a normal S1 and S2. No gallops, murmurs, or rubs. Normal PMI, no JVD. No pulse deficits. Respiratory: Lungs have equal breath sounds bilaterally, clear to auscultation and percussion. No rales, rhonchi or wheezes noted. No increased work of breathing, no retractions or nasal flaring. Abdomen/GI: Soft, non-tender, with normal bowel sounds. No distension or tympany. No guarding or rebound. No evidence of tenderness throughout. Back: No spinal tenderness. No costovertebral tenderness. Full range of motion. Skin: Warm, dry with normal turgor. Normal color with no rashes, no lesions, and no evidence of cellulitis. MS/ Extremity: Pulses equal, no cyanosis. Neurovascular intact. Full, normal range of motion. Neuro: Awake and alert, GCS 15, oriented to person, place, time, and situation. Cranial nerves II-XII grossly intact. Motor strength 5/5 in all extremities. Sensory grossly intact. Cerebellar exam normal. Normal gait. Psych: Awake, alert, with orientation to person, place and time. Behavior, mood, and affect are within normal limits. Vital Signs: 10:06 BP 151 / 78; Pulse 81; Resp 16; Temp 98.3; Pulse Ox 97% on R/A; Weight 108.86 kg; iw Height 5 ft. 6 in. (167.64 cm); Pain 9/10; 11:10 BP 103 / 87; Pulse 69; Resp 17 S; Pulse Ox 99% on R/A; ca1 11:36 BP 117 / 69; Pulse 83; Resp 20; Pulse Ox 98% on R/A; ca1 12:02 Pain 5/10; ca1 12:50 BP 120 / 69; Pulse 71; Resp 14; Pulse Ox 98% ; sv 13:30 BP 137 / 64; Pulse 68; Resp 17 S; Pulse Ox 97% on R/A; ca1 14:32 BP 125 / 65; Pulse 63; Resp 18 S; Pulse Ox 96% on R/A; ca1 10:06 Body Mass Index 38.74 (108.86 kg, 167.64 cm) iw MDM: 12:09 Patient medically screened. kdr 17:10 Data reviewed: lab test result(s), radiologic studies. Counseling: I had a detailed kdr discussion with the patient and/or guardian regarding: the historical points, exam findings, and any diagnostic results supporting the discharge/admit diagnosis, lab results, radiology results, the need for outpatient follow up. 01/22 10:39 Order name: Basic Metabolic Panel; Complete Time: 12:04 kdr 01/22 10:39 Order name: CBC with Diff; Complete Time: 12:04 kdr 01/22 10:39 Order name: Creatinine for Radiology; Complete Time: 12:04 kdr 01/22 10:39 Order name: Hepatic Function; Complete Time: 12:04 kdr 01/22 10:39 Order name: Lipase; Complete Time: 12:04 kdr 01/22 10:39 Order name: CXR XRAY; Complete Time: 12:04 kdr 01/22 10:39 Order name: CT Abd/Pelvis - Without Contrast; Complete Time: 12:04 kdr 01/22 12:30 Order name: EKG Electrocardiogram EDAZ 01/22 10:39 Order name: IV Saline Lock; Complete Time: 10:49 kdr 01/22 10:39 Order name: Labs collected and sent; Complete Time: 10:49 kdr 01/22 10:39 Order name: EKG - Nurse/Tech; Complete Time: 11:24 kdr EC:47 Rate is 66 beats/min. Rhythm is regular, Normal Sinus Rhythm with No ectopy. QRS [place] kdr is Normal. VT interval is normal. QRS interval is normal. QT interval is normal. Clinical impression: Normal ECG. Administered Medications: 11:05 Drug: NS 0.9% 500 ml Route: IV; Rate: bolus; Site: right antecubital; ca1 11:40 Follow up: Response: No adverse reaction; IV Status: Completed infusion ca1 11:11 Drug: Zofran (Ondansetron) 4 mg Route: IVP; Site: right antecubital; ca1 12:03 Follow up: Response: No adverse reaction; Nausea is decreased ca1 11:23 Not Given (Hemodynamic Parameters): morphine 4 mg IVP once; RASS on ADMIN: Combtv4, ca1 Very Agttd3, Agttd2, Rstlss1, AlertClm0, Drwsy-1, Lt Sdtn-2, Mod Sdtn-3, Dp Sdtn-4, UnArsble-5 11:24 Drug: fentaNYL (PF) 25 mcg {Note: RASS - 0.} Route: IVP; Site: right antecubital; ca1 12:02 Follow up: Pain 5/10 Adult; Response: No adverse reaction; Pain is decreased; RASS: ca1 Alert and Calm (0) 14:08 Drug: Zofran (Ondansetron) 4 mg Route: IVP; Site: right antecubital; sv 14:30 Follow up: Response: No adverse reaction; Nausea is decreased ca1 14:11 Drug: morphine 4 mg {Note: rass0.} Route: IVP; Site: right antecubital; sv 14:30 Follow up: Response: No adverse reaction; Pain is decreased; RASS: Alert and Calm (0) ca1 Disposition: 01/23/20 12:09 Hospitalization ordered by Mj Patterson for Observation. Preliminary diagnosis are Abdominal and pelvic pain, Acute pancreatitis. - Bed requested for Telemetry/MedSurg (observation). - Status is Observation. ca1 - Condition is Fair. - Problem is new. - Symptoms have improved. Signatures: Dispatcher [employer] EDMS Mariposa Zamarripa Stephanie, RN RN sv Rittger, Kevin, MD MD kdr Williams, Irene, RN RN iw Elsi Nicole RN RN tl1 Aleida Motley RN RN ca1 Corrections: (The following items were deleted from the chart) 13:30 12:09 Hospitalization Ordered by Mj Patterson DO for Observation. Preliminary bd diagnosis is Abdominal and pelvic pain; Acute pancreatitis. Bed requested for Telemetry/MedSurg (observation). Status is Observation. Condition is Fair. Problem is new. Symptoms have improved. kdr 13:44 13:30 01/23/2020 12:09 Hospitalization Ordered by Mj Patterson DO for Observation. tl1 Preliminary diagnosis is Abdominal and pelvic pain; Acute pancreatitis. Bed requested for Telemetry/MedSurg (observation). Status is Observation. Condition is Fair. Problem is new. Symptoms have improved. bd 14:51 13:44 01/23/2020 12:09 Hospitalization Ordered by Mj Patterson DO for Observation. ca1 Preliminary diagnosis is Abdominal and pelvic pain; Acute pancreatitis. Bed requested for Telemetry/MedSurg (observation). Status is Observation. Condition is Fair. Problem is new. Symptoms have improved. tl1
[2020-01-23] MEDS ORDERED: TRAMADOL HCL 50 MG TAB PO PRN (13:37)
[2020-01-23] MEDS ORDERED: MORPHINE 2 MG/ML SYR IV PRN (13:37)
--- NOTE | 2020-01-23 13:37 | P.HP ---
Certification for Inpatient Patient admitted to: Observation With expected LOS: <2 Midnights Patient will require the following post-hospital care: None Practitioner: I am a practitioner with admitting privileges, knowledge of patient current condition, hospital course, and medical plan of care. Services: Services provided to patient in accordance with Admission requirements found in Title 42 Section 412.3 of the Code of Federal Regulations Patient History Date of Service: 01/23/20 Primary Care Provider: Dr. Perez; GI-Dr. Kraft; Pain management; Neurology Reason for admission: Left upper quadrant abdominal pain History of Present Illness: 49-year-old female with history of diabetes, hypertension, hyperlipidemia, CAD with prior stents, fatty liver and obesity. Patient presented with left upper quadrant abdominal pain. She rated the pain about a 9/10. This started last night and continued to get worse. It was associated with some nausea but no vomiting. She denied any fever. She has had some diarrhea off and on. This morning she ate Whataburger. She continued to have pain. She came to the ER for further evaluation. In the ER white count 11.6, hemoglobin 13.7. Lipase within normal range. CMP unremarkable. CT scan showed some inflammation to the pancreas indicative of pancreatitis. Patient admitted for further evaluation. When I saw the patient ER, pain had improved. Patient with history of pancreatitis in the past. In June 2019 she was admitted. Apparently 1 of her diabetic medications was the cause of pancreatitis at that time. She had an ERCP which was unremarkable. She has since followed up with GI. Patient smokes regularly. She drinks on occasion. Her last use of alcohol was 2 weeks ago. Allergies Iodine Allergy (Uncoded 07/02/19 03:25) Shortness of breath Home medications list reviewed: Yes Home Medications: Aspirin [Aspirin EC 81 MG] 1 tab PO BEDTIME 06/21/19 Atorvastatin Calcium [Lipitor] 80 mg PO BEDTIME 06/21/19 Cholecalciferol (Vitamin D3) [Vitamin D3] 1 cap PO SEECOM 06/21/19 Clopidogrel Bisulfate [Plavix*] 1 tab PO DAILY 06/21/19 Ezetimibe 1 tab PO BEDTIME 06/21/19 Icosapent Ethyl [Vascepa] 1 cap PO BEDTIME 06/21/19 Metformin HCl [Metformin HCl ER] 1 tab PO TID 06/21/19 Metoprolol Tartrate 1 tab PO BID 06/21/19 Pregabalin 1 cap PO BID 06/21/19 Sertraline HCl 1 tab PO DAILY 06/21/19 Amlodipine Bes/Olmesartan Med [Amlodipine-Olmesartan 5-40 mg] 1 each PO DAILY 07/02/19 - Past Medical/Surgical History Diabetic: No -: HTN -: Diabetes mellitus type 2 insulin-dependent -: Hyperlipidemia -: CAD with prior stent -: Fatty liver -: Obesity -: Chronic pain -: carpal tunnel repair -: tubal ligation -: Cardiac stents Psychosocial/ Personal History: Patient is - Family History Father -: Other (see notes) Notes: Alzeimehrs, aneursym Mother -: Hypertension, Cancer Notes: breast, colon, prostate - Social History Smoking Status: Heavy Tobacco smoker (>10 cigarettes/day) Counseled patient to stop smoking for: less than 10 minutes Smoking therapy provided: Yes Patient receptive to therapy: Yes Alcohol use: Yes CD- Drugs: No Caffeine use: Yes Place of Residence: Home Review of Systems General: As per HPI Eyes: Unremarkable ENT: Unremarkable Respiratory: Unremarkable Cardiovascular: Unremarkable Gastrointestinal: Nausea, Abdominal Pain, As per HPI Genitourinary: Unremarkable Musculoskeletal: Unremarkable Integumentary: Unremarkable Neurological: Unremarkable Lymphatics: Unremarkable Physical Examination - Physical Exam General: Alert, In no apparent distress, Oriented x3, Cooperative HEENT: Atraumatic, Normocephalic, Mucous membr. moist/pink Neck: Supple Respiratory: Clear to auscultation bilaterally, Normal air movement Cardiovascular: Normal pulses, Regular rate/rhythm Gastrointestinal: Normal bowel sounds, Soft and benign, Non-distended, No masses, No rebound, No guarding, Tenderness (Mild pain to the left upper quadrant) Musculoskeletal: No erythema, No tenderness, No warmth Integumentary: No tenderness/swelling, No erythema, No warmth, No cyanosis Neurological: Normal speech, Normal strength at 5/5 x4 extr, Normal tone, Normal affect - Studies Laboratory Data (last 24 hrs) 01/23/20 10:43: Creatinine 0.76 01/23/20 10:43: WBC 11.6 H, Hgb 13.7, Hct 40.6, Plt Count 218 01/23/20 10:43: Sodium 138, Potassium 4.0, BUN 14, Creatinine 0.77, Glucose 296 H, Total Bilirubin 0.2, AST 9 L, ALT 21, Alkaline Phosphatase 93, Lipase 224 Assessment and Plan - Plan Impression: Left upper quadrant abdominal pain secondary to acute pancreatitis Diabetes mellitus type 2 insulin-dependent with hyperglycemia Hypertension Hyperlipidemia Fatty liver CAD with prior stents Chronic pain Plan: Left upper quadrant abdominal pain secondary to acute pancreatitis: Patient will be admitted for further evaluation. Will obtain blood cultures, triglyceride level to further evaluate. Will also obtain abdominal ultrasound. Will continue with IV fluid hydration. Will monitor lipase. Will consult GI to further evaluate. Will start off with a clear liquid diet then advance as tolerated. Anticipate improvement over the next day with possible discharge as early as tomorrow. Await further recommendations by GI. Diabetes mellitus type 2 insulin-dependent with hyperglycemia: Will provide sliding scale. Will need to obtain and restart home medication. Hypertension: Obtain and restart home medication. Hyperlipidemia: Obtain and restart home medication. Will check triglyceride level. And fasting lipid panel in the morning. Fatty liver: Await recommendations by GI CAD with prior stents: Continue medication, patient on DVT prophylaxis. Chronic pain: Continue with her pain medication. Discharge Plan: Home Plan to discharge in: 24 Hours - Advance Directives Does patient have a Living Will: No Does patient have a Durable POA for Healthcare: No - Code Status/Comfort Care Code Status Assessed: Yes (Patient is full code) Time Spent Managing Pts Care (In Minutes): 55
[2020-01-23] MEDS ORDERED: ACETAMINOPHEN 500 MG TAB PO PRN (15:04)
[2020-01-23] MEDS ORDERED: ONDANSETRON 4 MG/2 ML VIAL IV PRN (15:04)
[2020-01-23 16:04] LABS: Thyroid Stimulating Hormone 2.43 uIU/mL (0.360-3.740)
[2020-01-23 16:16] VITALS: BMI 38.4
--- NOTE | 2020-01-23 16:16 | EKG ---
Test Date: 2020-01-23 Test Time: 11:25:44 Enterprise Systems Architect: FRANCES MEASUREMENT RESULTS: Intervals: Rate: 66 VA: 124 QRSD: 74 QT: 432 QTc: 452 [place]: P: 17 VA: 124 QRS: 24 T: 37 INTERPRETIVE STATEMENTS: Normal sinus rhythm Normal ECG Compared to ECG 01/01/2020 12:27:01 No significant changes Electronically Signed On 01-23-20 16:16:17 CDT by Rasheed Romero
[2020-01-23] MEDS: INSULIN -REGULAR HUMAN 50 UNIT/0.5 ML ML SQ SCH ×2 (16:30→22:35)
[2020-01-23] MEDS: NA CHLORIDE 0.9% 1,000 ML IV SCH (16:38)
[2020-01-23] MEDS: ENOXAPARIN 40 MG/0.4 ML SQ SCH (16:38)
[2020-01-23 20:22] VITALS: O2SAT 95
--- NOTE | 2020-01-23 20:36 | RAD REPORT ---
EXAM DESCRIPTION: US - Abdomen Exam Complete - 01/23/2020 8:23 pm CLINICAL HISTORY: Abdominal pain. pancreatitis COMPARISON: Abdomen Exam Limited dated 06/21/2019; Abdomen Pelvis Wo Contrast dated 01/23/2020 FINDINGS: The liver is normal in size, shape and echotexture. No focal liver lesions or intrahepatic biliary dilatation is seen. The gallbladder demonstrates no gallstones, pericholecystic fluid or gallbladder wall thickening. Co mmon bile duct is normal in caliber measuring 5 millimeters. Both kidneys are normal in size, shape and echotexture. No hydronephrosis, focal lesion of concern or perinephric fluid. Small cortical calcification suspected left kidney laterally. The spleen is normal in size measuring 13 cm. The pancreas and aorta are obscured by bowel gas. The visualized aspects of the IVC are grossly normal. IMPRESSION: Unremarkable study except for limited assessment of the pancreas and aorta due to bowel gas.
[2020-01-23] MEDS: HYDROCODONE/APAP 7.5/325 MG TAB PO PRN (21:08)
[2020-01-23] MEDS: METOPROLOL TAR 50 MG TAB PO SCH (21:08)
[2020-01-24] MEDS: HYDROCODONE/APAP 7.5/325 MG TAB PO PRN (02:30)
[2020-01-24 04:27] LABS: Absolute Lymphocytes (CBC) 2.2 K/uL (0.7-4.9); Basophils % 0.4 % (0-1.3); Hematocrit 37.6 % (36.0-45.0); Lymphocytes % 22.4 % (15.3-44.8); MPV 9.5 fL (7.6-11.3); RBC Red Blood Cell Count 4.21 M/uL (3.86-4.86)
[2020-01-24 04:43] LABS: ALT/SGPT 19 U/L (12-78); AST/SGOT 6 U/L (15-37); Albumin 3.1 g/dL (3.4-5.0); Alkaline Phosphatase 75 U/L (45-117); BUN Blood Urea Nitrogen 12 mg/dL (7-18); Bicarbonate 27 mmol/L (21-32); Bilirubin Total 0.3 mg/dL (0.2-1.0); Glucose Level 162 mg/dL (74-106); HDL Cholesterol 33 mg/dL (40-60); LDL Cholesterol, Calculated 1 (<130); Lipase 316 U/L (73-393); Potassium 3.8 mmol/L (3.5-5.1); Protein, Total 6.6 g/dL (6.4-8.2); Sodium Level 139 mmol/L (136-145)
[2020-01-24] MEDS: NA CHLORIDE 0.9% 1,000 ML IV SCH (05:49)
[2020-01-24] MEDS: INSULIN -REGULAR HUMAN 50 UNIT/0.5 ML ML SQ SCH (07:30)
[2020-01-24 08:01] LABS: Urine Appearance CLEAR; Urine Bilirubin NEGATIVE (NEG); Urine Blood NEGATIVE (NEG); Urine Color YELLOW; Urine Glucose NEGATIVE (NEG); Urine Protein NEGATIVE (NEG); Urine Urobilinogen 0.2 mg/dL (0.2-1.0); Urine pH 5.5 (5.0-7.0)
[2020-01-24 08:02] LABS: Urine Microscopic Reflex NO UMIC
[2020-01-24] MEDS: ENOXAPARIN 40 MG/0.4 ML SQ SCH (08:23)
[2020-01-24] MEDS: METOPROLOL TAR 50 MG TAB PO SCH (08:23)
[2020-01-24 08:26] VITALS: BP 123/60
[2020-01-24] MEDS ORDERED: AMLODIPINE 5 MG TAB PO SCH (09:00)
[2020-01-24] MEDS ORDERED: ASPIRIN EC 81 MG TAB PO SCH (09:00)
[2020-01-24] MEDS ORDERED: POTASSIUM CL SA 10 MEQ TAB PO ONE (09:00)
[2020-01-24] MEDS ORDERED: VALSARTAN 40 MG TAB PO SCH (09:00)
--- NOTE | 2020-01-24 09:12 | P.DS ---
Admission Date: 01/23/20 Discharge Date: 01/24/20 Primary Care Provider: Dr. Perez; GI-Dr. Kraft; Pain management; Neurology Disposition: ROUTINE DISCHARGE Discharge Condition: GOOD Reason for Admission: Left upper quadrant abdominal pain Consultations: GI-Dr. Farooq Procedures: CT scan: FINDINGS: No suspicious findings in the lung bases. Liver and spleen show no suspicious findings. Gallbladder is mostly contracted. No biliary tree dilatation. Pancreatic tissue is homogeneous. No discrete pancreatic mass identifiable. There is trace stranding adjacent to the body of the pancreas. No fluid in the peripancreatic tissues. Anterior pararenal fascia shows no suspicious finding. Small accessory splenic nodule present at the tail of the pancreas. No hydronephrosis or suspicious renal mass. No significant adrenal finding. Isodense renal masses and pyelonephritis cannot be excluded in the absence of IV contrast. The urinary bladder is without significant finding. Uterus and ovaries show no suspicious findings. No dilated bowel loops or bowel wall thickening. No free air, free fluid or inflammatory stranding. No hernia, mass or bulky lymphadenopathy. Disc and bony degenerative changes are present. IMPRESSION: Pancreas appears mildly edematous with trace amount of stranding along the margins of the pancreas. Findings are minimal but could indicate an early acute pancreatitis. Correlation is needed with any clinical or laboratory supporting findings. Exam is otherwise without an acute or significant finding. Abdominal ultrasound: FINDINGS: The liver is normal in size, shape and echotexture. No focal liver lesions or intrahepatic biliary dilatation is seen. The gallbladder demonstrates no gallstones, pericholecystic fluid or gallbladder wall thickening. Common bile duct is normal in caliber measuring 5 millimeters. Both kidneys are normal in size, shape and echotexture. No hydronephrosis, focal lesion of concern or perinephric fluid. Small cortical calcification suspected left kidney laterally. The spleen is normal in size measuring 13 cm. The pancreas and aorta are obscured by bowel gas. The visualized aspects of the IVC are grossly normal. IMPRESSION: Unremarkable study except for limited assessment of the pancreas and aorta due to bowel gas. Medical problem List: Left upper quadrant abdominal pain secondary to acute pancreatitis, etiology unknown Diabetes mellitus type 2 insulin-dependent with hyperglycemia Hypertension Hyperlipidemia Fatty liver CAD with prior stents Chronic pain Brief History of Present Illness: 49-year-old female with history of diabetes, hypertension, hyperlipidemia, CAD with prior stents, fatty liver and obesity. Patient presented with left upper quadrant abdominal pain. She rated the pain about a 9/10. This started last night and continued to get worse. It was associated with some nausea but no vomiting. She denied any fever. She has had some diarrhea off and on. This morning she ate Whataburger. She continued to have pain. She came to the ER for further evaluation. In the ER white count 11.6, hemoglobin 13.7. Lipase within normal range. CMP unremarkable. CT scan showed some inflammation to the pancreas indicative of pancreatitis. Patient admitted for further evaluation. When I saw the patient ER, pain had improved. Patient with history of pancreatitis in the past. In June 2019 she was admitted. Apparently 1 of her diabetic medications was the cause of pancreatitis at that time. She had an ERCP which was unremarkable. She has since followed up with GI. Patient smokes regularly. She drinks on occasion. Her last use of alcohol was 2 weeks ago. Hospital Course: Patient presented with left upper quadrant abdominal pain. This was found related to acute pancreatitis. Lipase levels unremarkable. CT scan showed some mild pancreatitis. Abdominal ultrasound unremarkable. Patient was given IV hydration and monitor closely. GI also consulted. Patient has tolerated diet. Abdominal pain improved. Etiology of pancreatitis unknown. Patient with prior history of pancreatitis related to 1 of her diabetic medications. No recent change in her medications. Triglycerides were slightly elevated. Patient takes multiple medications for mixed hyperlipidemia. At discharge will recommend to increase Vascepa 2 g twice daily for better control of triglycerides. Recommend follow up with GI in 1-2 weeks to follow up this hospitalization. She will continue with a diabetic diet. Further evaluation for pancreatitis can be done by GI as an outpatient. Patient with diabetes mellitus type 2 insulin dependent. Blood sugar slightly elevated. This was monitor closely. At discharge she will continue with her current regimen of NovoLog, Tresiba 60 units daily and metformin 500 mg twice daily. Patient will continue with diabetic diet. Recommend follow up with her ripening room operator to further monitor and adjust medication. Patient with hypertension. At discharge she will continue with her current me dications Norvasc/olmesartan 5/40 mg daily and metoprolol 25 mg 1 pill twice daily. Recommend to maintain blood pressures less 150/80. Further adjustment can be done by her PCP. Patient with mixed hyperlipidemia. As recommended above her Vascepa will be increased to 2 g twice daily for better control of her triglycerides. Patient also takes Repatha injections, Zetia 10 mg daily and Lipitor 80 mg daily. She will continue with these medications. Recommend to recheck fasting lipid panel in 2-4 weeks to monitor her progress. Further adjustment can be done by her PCP or cardiology. Patient with history of CAD and prior stents. Patient will continue with aspirin 81 mg daily and Plavix 75 mg daily. Further adjustment can be done by cardiology. Patient with fatty liver. Recommend follow up with GI to further address. Education will be provided. Patient with chronic pain. At discharge she will continue with her current medications of Lyrica 75 mg 1 pill twice daily. Patient also takes a muscle relaxer. Patient takes Mobic as needed but will recommend to limit this medication due to her multiple medical issues. Vital Signs/Physical Exam: Temp Pulse Resp BP Pulse Ox 97.9 F 65 16 123/60 96 01/24/20 04:00 01/24/20 08:23 01/24/20 04:00 01/24/20 08:23 01/24/20 04:00 General: Alert, In no apparent distress, Oriented x3, Cooperative HEENT: Atraumatic Neck: Supple Respiratory: Clear to auscultation bilaterally, Normal air movement Cardiovascular: Normal pulses, Regular rate/rhythm Gastrointestinal: Normal bowel sounds, Soft and benign, Non-distended, No tenderness, No masses, No rebound, No guarding Neurological: Normal speech, Normal strength at 5/5 x4 extr, Normal tone, Normal affect Laboratory Data at Discharge: WBC 9.8 K/uL (4.3-10.9) D 01/24/20 03:46 Hgb 12.7 g/dL (12.0-15.0) 01/24/20 03:46 Hct 37.6 % (36.0-45.0) 01/24/20 03:46 Plt Count 185 K/uL (152-406) 01/24/20 03:46 Sodium 139 mmol/L (136-145) 01/24/20 03:46 Potassium 3.8 mmol/L (3.5-5.1) 01/24/20 03:46 BUN 12 mg/dL (7-18) 01/24/20 03:46 Creatinine 0.59 mg/dL (0.55-1.3) 01/24/20 03:46 Glucose 162 mg/dL (74-106) H 01/24/20 03:46 Magnesium 2.0 mg/dL (1.8-2.4) 01/24/20 03:46 Total Bilirubin 0.3 mg/dL (0.2-1.0) 01/24/20 03:46 AST 6 U/L (15-37) L 01/24/20 03:46 ALT 19 U/L (12-78) 01/24/20 03:46 Alkaline Phosphatase 75 U/L (45-117) 01/24/20 03:46 Triglycerides 230 mg/dL (<150) H 01/24/20 03:46 Cholesterol 80 mg/dL (<200) 01/24/20 03:46 HDL Cholesterol 33 mg/dL (40-60) L 01/24/20 03:46 Cholesterol/HDL Ratio 2.42 01/24/20 03:46 Lipase 316 U/L (73-393) 01/24/20 03:46 Home Medications: Aspirin [Aspirin EC 81 MG] 1 tab PO BEDTIME 06/21/19 Atorvastatin Calcium [Lipitor] 80 mg PO BEDTIME 06/21/19 Cholecalciferol (Vitamin D3) [Vitamin D3] 1 cap PO SEECOM 06/21/19 Clopidogrel Bisulfate [Plavix*] 1 tab PO DAILY 06/21/19 Ezetimibe 1 tab PO BEDTIME 06/21/19 Metformin HCl [Metformin HCl ER] 1 tab PO BID 06/21/19 Metoprolol Tartrate 1 tab PO BID 06/21/19 Pregabalin 1 cap PO BID 06/21/19 Amlodipine Bes/Olmesartan Med [Amlodipine-Olmesartan 5-40 mg] 1 each PO DAILY 07/02/19 Evolocumab [Repatha Sureclick] 1 ml SQ SEECOM 01/23/20 Insulin Aspart [Novolog Flexpen] 25 units SQ TID 01/23/20 Insulin Degludec [Tresiba Flextouch U-200] 60 units SQ BEDTIME 01/23/20 Lidocaine 4% Patch [Lidoderm 5% Patch*] 2 patch TOP DAILY PRN 01/23/20 Meloxicam [Mobic] 1 tab PO DAILY 01/23/20 methocarbamoL [Methocarbamol] 1 tab PO BID PRN 01/23/20 Icosapent Ethyl [Vascepa] 2 cap PO BID #120 01/24/20 New Medications: Icosapent Ethyl [Vascepa] 2 cap PO BID #120 Patient Discharge Instructions: 1. Recommend follow up with her PCP in 1 week to follow up this hospitalization. 2. Patient presented with left upper quadrant abdominal pain. This was found related to acute pancreatitis. Lipase levels unremarkable. CT scan showed some mild pancreatitis. Abdominal ultrasound unremarkable. Patient was given IV hydration and monitor closely. GI also consulted. Patient has tolerated diet. Abdominal pain improved. Etiology of pancreatitis unknown. Patient with prior history of pancreatitis related to 1 of her diabetic medications. No recent change in her medications. Triglycerides were slightly elevated. Patient takes multiple medications for mixed hyperlipidemia. At discharge will recommend to increase Vascepa 2 g twice daily for better control of triglycerides. Recommend follow up with GI in 1-2 weeks to follow up this hospitalization. She will continue with a diabetic diet. Further evaluation for pancreatitis can be done by GI as an outpatient. 3. Patient with diabetes mellitus type 2 insulin dependent. Blood sugar slightly elevated. This was monitor closely. At discharge she will continue with her current regimen of NovoLog, Tresiba 60 units daily and metformin 500 mg twice daily. Patient will continue with diabetic diet. Recommend follow up with her ripening room operator to further monitor and adjust medication. 4. Patient with hypertension. At discharge she will continue with her current medications Norvasc/olmesartan 5/40 mg daily and metoprolol 25 mg 1 pill twice daily. Recommend to maintain blood pressures less 150/80. Further adjustment can be done by her PCP. 5. Patient with mixed hyperlipidemia. As recommended above her Vascepa will be increased to 2 g twice daily for better control of her triglycerides. Patient also takes Repatha injections, Zetia 10 mg daily and Lipitor 80 mg daily. She will continue with these medications. Recommend to recheck fasting lipid panel in 2-4 weeks to monitor her progress. Further adjustment can be done by her PCP or cardiology. 6. Patient with history of CAD and prior stents. Patient will continue with aspirin 81 mg daily and Plavix 75 mg daily. Further adjustment can be done by cardiology. 7. Patient with fatty liver. Recommend follow up with GI to further address. Education will be provided. 8. Patient with chronic pain. At discharge she will continue with her current medications of Lyrica 75 mg 1 pill twice daily. Patient also takes a muscle relaxer. Patient takes Mobic as needed but will recommend to limit this medication due to her multiple medical issues. Diet: ADA Activity: Ad rena Time spent managing pt's care (in minutes): 55
[2020-01-24 09:14] VITALS: TEMP 97
--- NOTE | 2020-02-03 15:09 | CON ---
Date of Consultation: 01/23/2020 Reason For Consultation: Recurrent pancreatitis. History Of Present Illness: Patient is a 49-year-old white female with history of recurrent pancreat itis; diabetes; hypertension; hyperlipidemia; coronary artery disease, status post cardiac stent; obe sity; and fatty liver. Patient admitted to the hospital due to left upper quadrant pain. Patient turner s a history of pancreatitis, felt to be due to a medicine called, Ilyaempic, in the past. She states h er last alcoholic beverage was 1 week ago. She had an MRCP on her last admission on July 02, 2019 , that was negative. She has no prior laparoscopic cholecystectomy. She has had left upper quadrant abdominal pain that radiates to her left flank and left back, maximum 9/10, now 3/10, associated wit h nausea, but no vomiting, fevers, chills, or night sweats. She has had some mild diarrhea off and o n for the past [address] scan reveals mild possible pancreatitis in the body of the pancreas. Ult rasound is negative. Past Medical History: As stated above, consistent with diabetes; hypertension; hyperlipidemia; coron molly artery disease, status post cardiac stent; fatty liver disease; obesity; chronic pain; carpal venu derrick syndrome; tubal ligation; cardiac stent. Medications: At home include; aspirin, Lipitor, vitamin D3, Plavix, ezetimibe, Vascepa, metformin, m etoprolol, pregabalin, sertraline, amlodipine and olmesartan combo pill. Allergies: IODINE. Social History: She is , 2 children. Positive for tobacco. Positive for alcohol. Family History: Father of old age at 86. Mother still alive with age of 82 with dementia. Review of Systems: Patient has left upper quadrant pain, radiating to the left flank and left back associated with nause a, maximum 9/10, now down to 3/10. No emesis, fevers, chills, night sweats, melena, hematochezia, he matemesis, coffee-grounds emesis, chest pain, shortness of breath, seizure, syncope, lower extremity muscle aches, joint aches, backaches. She does have change in bowel habits with diarrhea, but no con stipation. Does have some decreased mood and anxiety issues also. Physical Examination: Vital Signs: Patient is 5 feet 6 inches, 238 pounds, BMI 38 kg/m2. She has a temperature of 98.3 de grees Fahrenheit, pulse 81, respirations 16, blood pressure 151/78, O2 saturation 97% to 99%. General: She is an obese female, lying in bed, in no acute distress currently except for some mild l eft upper quadrant pain radiating to her left flank and back. HEENT: Normocephalic, atraumatic. Anicteric. Pupils equal, round, and reactive to light. Extraocu lar muscles intact. Oropharynx is clear. Neck: Supple. No masses. Respirations: Clear to auscultation bilaterally. Cardiac: Regular rate and rhythm. No gallops or rubs. Gastrointestinal: Positive bowel sounds. Soft, obese, nondistended. She did have pain in the left upper quadrant radiating to the left flank, that was mild to moderate pain to palpation. No hepatosp lenomegaly. Back: No CVA tenderness noted. Extremities: No clubbing, cyanosis, or edema. 2+ pulses. Neurologic: Alert and oriented x3. Grossly nonfocal. 5/5 motor. Sensation intact to light touch. Laboratory Data: The patient's white count 11.6, hemoglobin of 13.7, hematocrit 41, MCV of 88, plate let count 218, polys 75%, lymphocytes 17%, monocytes 6%, eosinophils 3%. The patient has a sodium of 138, potassium 4.0, chloride 106, bicarb 26, BUN of 14, creatinine of 0.8, glucose of 296, calcium 8 .7, total bilirubin 0.2, direct bilirubin less than 0.1, AST of 9, ALT of 21, alkaline phosphatase 93 , total protein 12.7, albumin 3.5. Triglycerides 199. Lipase 224. TSH of 2.43, free T4 0.92. Imaging: The patient had a CT scan that reveals mild acute pancreatitis in the body of the pancreas. Gallbladder is contracted. No biliary tree dilatation. Ultrasound of abdomen was negative. Impression: 1.Acute recurrent pancreatitis in the past, that has been associated with Ozempic medication and pos sibly alcohol. MRCP back on July 02, 2019, was negative. She has no prior laparoscopic cholecyst ectomy; however, CT and ultrasound were negative for any gallbladder findings. Last alcoholic leonel ge was 1 week ago. She has left upper quadrant pain, left flank pain, left back pain with nausea, bu t no emesis, fevers, chills, or night sweats. She has some mild diarrhea off and on for [address] scan reveals mild acute pancreatitis in body of the pancreas, but ultrasound was negative. Recommendations: 1.Increase IV fluids. 2.Continue p.r.n. pain medications and antiemetics. 3.Check CA 19-9. 4.Check triglycerides, which has been done, which are negative. 5.Consider an ERCP in this patient. SUSAN/JACKELINE Voice ID: [id number] Report ID: [id number]
== END 2020-01-24 10:20 | disposition home or self-care (01) ==
LOC: ER 09:54 → ERHOLD 13:24 → 2ND 14:18
PROVIDERS: ADMIT Family Medicine; ATTEND Family Medicine
DX: K85.90 Acute pancreatitis without necrosis or infection, unspecified (principal); R10.12 Left upper quadrant pain; E11.65 Type 2 diabetes mellitus with hyperglycemia; I10 Essential (primary) hypertension; K76.0 Fatty (change of) liver, not elsewhere classified; G89.29 Other chronic pain; I25.10 Atherosclerotic heart disease of native coronary artery without angina pectoris; Z95.5 Presence of coronary angioplasty implant and graft; E66.9 Obesity, unspecified; Z68.38 Body mass index [BMI] 38.0-38.9, adult; E78.2 Mixed hyperlipidemia; F17.210 Nicotine dependence, cigarettes, uncomplicated; Z79.4 Long term (current) use of insulin; Z79.02 Long term (current) use of antithrombotics/antiplatelets; Z79.82 Long term (current) use of aspirin; Z80.3 Family history of malignant neoplasm of breast; Z80.0 Family history of malignant neoplasm of digestive organs; Z80.42 Family history of malignant neoplasm of prostate; Z82.49 Family history of ischemic heart disease and other diseases of the circulatory system
CPT/HCPCS: 96361; 93005; 87040 ×2; 85025 ×2; 80048; 36415; 83735; 84478; 87205 ×2; 80061; 82947 ×3; 80076; 84443; 81003; 84439; 83690 ×2; 80053; 84145; 74176; 71045; 76700; 96375; 96374; 99285; J1650 ×2; J3010; J2270; J7030 ×3; J2405 ×2; G0378 ×3

== ENCOUNTER 2020-02-03 23:22 | Emergency (ER) | payer BC ==
--- OUTSIDE RECORDS SUMMARY | 2020-02-03 23:25 | XMS REPORT | Clinical Summary ---
:1970 Author Organization [facility] Address [address] [place] [address] Care Team Providers Name Role Phone MD Chris Primary Care Provider Allergies Active Allergy Reactions Severity Noted Date Comments Iodine And Iodide Containing Products Medications Medication Sig Dispensed Refills Start Date [...] (CIPRO) TK 1 T PO BID 0 7 Active 250 MG tablet ciprofloxacin, mixture, Take [...] Last Done Comments CERVICAL CANCER SCREENING 1989 BREAST CANCER SCREENING 2018 COLONOSCOPY SCREENING 2018 SHINGLES VACCINES (#1) 2018 INFLUENZA VACCINE 04/19/2020 Results Not on fileafter 02/02/2019 Advance Directives For more information, please contact: [phone] Type Date Recorded Patient Clinical Research Monitor Explanati on Advance Directives, Living Will and 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
--- OUTSIDE RECORDS SUMMARY | 2020-02-03 23:26 | XMS REPORT | Continuity of Care Document ---
:1970 Author Organization [facility] up Care Team Providers Name Role Phone MD Uriel, Samson Unavailable Unavailable Insurance Providers Payer name Policy type / Coverage type Policy ID Covered green party ID Policy [employer] AET[employer] AET[employer] Encounters Encounter Performer Location Date Office Visit Samson Trevino MD [facility] May 10, 2014 Problems Problem Effective Dates Problem Status HYPERTENSION January 17, 2014 Active DYSLIPIDEMIA January 17, 2014 Active ANXIETY DEPRESSION January 17, 2014 Active OBESITY January 17, 2014 Active PHYSICAL EXAMINATION January 17, 2014 Active RHINITIS Mar 29, 2014 Active UTI Mar 29, 2014 Active POLYDIPSIA May 10, 2014 Active Procedures Date Description Comments January 17, 2014 smoking status current every day [facility] Feb 17, 2013 vaginal Pap smear results Complete January 17, 2014 smoking/tobacco cessation, patient educa tion DONE and counseling Apr 19, 2013 mammogram Complete Mar 29, 2014 smoking status Current every day [facility] Mar 29, 2014 smoking/tobacco cessation, patient educa tion yes and counseling May 10, 2014 smoking status Current every day ok May 10, 2014 smoking/tobacco cessation, patient educa tion yes and counseling Medications Medication Instructions Start [...] BESY-BENAZEPRIL HCL 5-20 One tablet every morning. Ju l 2013 Active MG CAPS BACTRIM DS 800-160 MG TABS one bid. Mar 29, 2014 Inact arlene DIOVAN HCT 160-12.5 MG TABS one daily January 17, 2014 Inac tive AMLODIPINE BESY-BENAZEPRIL HCL 5-40 one daily May [...] Date Description Test Name Value Reference Interpretation Sta tus January 17, hemoglobin, blood HGB 14.9 g/dL 12.0-16.0 2013January 17, hematocrit, blood HCT 43.8 % 36.0-48.0 2013January 17, platelet count PLATELETS 251 K/CMM [phone] /mm3 January 17, hemoglobin, blood HGB 14.9 g/dL 12.0-16.0 2013January 17, hematocrit, blood HCT 43.8 % 36.0-48.0 2013January 17, platelet count PLATELETS 251 K/CMM 149-242 3491 /mm3 January 17, cholesterol, serum CHOLESTEROL 271 mg/dl <=199 High 2013January 17, triglyceride, TRIGLYCERIDE 574 mg/dl <=149 High 2013 serum, fasting January 17, HDL cholesterol, HDL 31 mg/dl >=61 Low 2013 serum January 17, LDL cholesterol, LDL See Note <=99 2013 serum mg/dL mg/dl January 17, sodium, serum SODIUM 137 MEQ/L [phone] mmol/L January 17, potassium, serum POTASSIUM 4.6 MEQ/L 3.5-5.1 2013 mmol/L January 17, creatinine, serum CREATININE 0.7 mg/dL 0.5-1.4 2013January 17, urea nitrogen, BUN 15 mg/dL 7-22 2013 blood January 17, urea BUN/CREAT 21 null 6-25 2014 nitrogen/creatinine ratio, serum January 17, albumin, serum [...] January 17, sodium, serum SODIUM 137 MEQ/L [phone] mmol/L January 17, potassium, serum POTASSIUM 4.6 [...]
--- OUTSIDE RECORDS SUMMARY | 2020-02-03 23:26 | XMS REPORT | Continuity of Care Document ---
:1970 Author Organization navigaya Information [facility] Care Team Providers Name Role Phone navigaya Information [facility] Unavailable Un available Problems Problem Status Onset Classification Date Comments Sourc e Date Reported Urinary tract 03/02/2017 infection, site not 017 [place] specified ABD PAIN Active [facility] 017 Sr[facility] TMJ SYNDROME Active Condition 08/23/2014 014 [facility] MEDIAL MENISCUS TEAR, Active Condition 08/23/2014 LEFT 014 [facility] Tear of medial Resolved Problem 01/12/2020 Data meniscus of knee 014 migrated Med ical (disorder) from [facility],Mis Centricity jamee on 02/18/15. Neuro, [facility] [place] Temporomandibular Resolved Problem 01/12/2020 Data M H [id number] 014 migrate d Medical syndrome (disorder) from [facility],Mis Centricity jamee on 02/18/15. Neuro [facility] [place] POLYDIPSIA Active Condition 08/23/2014 014 [facility] Group Excessive thirst Resolved Problem 01/12/2020 Data (finding) 014 migrated Medical from [facility],Mis Centricity jamee on 02/18/15. Neuro [facility] [place] RHINITIS Inactive Condition 08/23/2014 014 [facility] UTI Inactive Condition 08/23/2014 014 [facility] Urinary tract Resolved Problem 01/12/2020 Data infectious disease 014 migrated M edical (disorder) from [facility],Mis Centricity jamee on 04/04/15. Neuro [facility] [place] HYPERTENSION Active Condition 08/23/2014 014 [facility] DYSLIPIDEMIA Active Condition 08/23/2014 014 [facility] ANXIETY DEPRESSION Active Condition 08/23/2014 014 [facility] OBESITY Active Condition 08/23/2014 014 [facility] PHYSICAL EXAMINATION Active Condition 08/23/2014 014 [facility] Dyslipidemia Active Problem 01/12/2020 Data MH (disorder) 014 migrated Medical from [facility],Mis Centricity jamee on 02/18/15. Neuro,[facility], [facility] [place] Hypertensive disorder, Active Problem 01/12/2020 Data MH systemic arterial 014 migrated Me dical (disorder) from Group,Mis Centricity jamee on 02/18/15. Neuro,[facility], [facility] [place] Mixed anxiety and Active Problem 01/12/2020 Data M H depressive disorder 014 migrated Medical (disorder) from [facility],Mis Centricity jamee on 02/18/15. Neuro,[facility], [facility] [place] Obesity (disorder) Active Problem 01/12/2020 Data 014 migrated Medical from [facility],Mis Centricity jamee on 02/18/15. Neuro,[facility] [place] Diabetes mellitus Active Problem 01/12/2020 M H (disorder) Medical Group,[facility] Neuro, [facility] [place] Diverticulitis Resolved Problem 01/12/2020 MH (disorder) Medical Group,Mis jamee Neuro,[facility] [place] Headache (finding) Active Problem 01/12/2020 Medical Group,[facility] Neuro, [facility] [place] Hypercholesterolemia Active Problem 01/12/2020 (disorder) Medical Group,Mis jamee Neuro,[facility] [place] Lumbar radiculopathy Active Problem 01/12/2020 MH (disorder) Medical Group,Mis jamee Neuro, [facility] [place] Depressive disorder Active Problem 01/12/2020 (disorder) Medical Group,[facility] jamee Neuro,[facility] [place] Myocardial infarction Active Problem 01/12/2020 (disorder) Medical Group,Mis jamee Neuro, [facility] [place] Dysarthria (finding) Active Problem 01/12/2020 [facility] Paresthesia (finding) Active Problem 01/12/2020 [facility] Medications Medication Details Route Status Patient Ordering Order Source Instructions Provider Date Diclofenac Sodium 2 gm, Active 01/09/ Mische r 0.01 MG/MG Topical TOP, BID, 2019 Roxy ro Gel [Voltaren] 0 Refill(s) Repatha 140 mg, Active 01/09/ [facility] SUB-Q, 2019 Neuro qMonth, 0 Refill(s) meloxicam 15 mg, Active cher PO, 2019 Neuro Daily, 0 Refill(s) Methocarbamol 0 Active Refill(s) 2019 Neuro NovoLog 25 unit, Active [facility] SUB-Q, 2019 Neuro TID-Befor e Meals, 0 Refill(s) pregabalin 75 MG Oral 75 mg = 1 Active cher Capsule [Lyrica] cap, PO, 2019 Neuro BID, # 60 cap, 3 Refill(s) , Pharmacy: [id number] repaglinide 2 mg oral 4 mg = 2 Active ischer tablet tab, PO, 2019 Neuro TID-Befor e Meals, 0 Refill(s) metFORMIN 500 mg oral 500 mg = Active ischer tablet, extended 1 tab, 2019 Neuro release PO, BID-Meals , # 60 tab, 1 Refill(s) 3 ML insulin degludec SUB-Q, Active lester 200 UNT/ML Pen Daily, 0 2019 Neuro Injector [Tresiba] Refill(s) pregabalin 75 MG Oral 75 mg = 1 Active cher Capsule [Lyrica] cap, PO, 2018 Neuro BID, # 60 cap, 3 Refill(s) pregabalin 75 MG Oral 75 mg = 1 Active 05/18/ [facility] Capsule [Lyrica] cap, PO, 2018 Neuro BID, # 60 cap, 2 Refill(s) ezetimibe 10 mg = 1 Active cher tab, PO, 2018 Neuro Daily, # 30 tab, 0 Refill(s) Nitroglycerin See Active Instructi 2018 Neuro ons, 5 mg PO Daily, 0 Refill(s) Lipitor 80 mg, Active cher PO, 2018 Neuro Daily, 0 Refill(s) Vascepa 1g, PO, Active Daily, 0 2018 Neuro Refill(s) Sertraline 100 mg, Active 07/16/ [facility] PO, 2018 Neuro Daily, 0 Refill(s) clopidogrel 75 mg, Active [facility] PO, 2019 Neuro Daily, 0 Refill(s) Hydrochlorothiazide 25 mg, Active c her PO, BID, 2018 Neuro 0 Refill(s) Norvasc 5 mg, PO, Active cher Daily, 0 2019 Neuro Refill(s) Metformin 500 mg, Active cher PO, BID, 2018 Neuro 0 Refill(s) tramadol 50 mg = 1 Active hydrochloride 50 MG tab, PO, 2016 [place] Oral Tablet Q6H, PRN Pain, X 3 day, # 12 tab, 0 Refill(s) 24 HR Ciprofloxacin 500 mg = Active 500 MG Extended 1 tab, 2017 [place] Release Tablet PO, [Cipro] Daily, X 5 day, # 5 tab, 0 Refill(s) Benadryl 50 mg, Inactive Route: 2016 [place] IVP, ONCE, Dosing Weight 110.455, kg, Priority: STAT, Start date: 02/27/17 19:30:00 CDT, Stop date: 02/27/17 19:30:00 CDT Morphine 4 mg, Inactive Route: 2016 [place] IVP, ONCE, Dosing Weight 110.455, kg, Priority: STAT, Start date: 02/27/17 18:55:00 CDT, Stop date: 02/27/17 18:55:00 CDT Zofran 4 mg, Inactive Route: 2016 [place] IVP, Drug form: INJ, ONCE, Dosing Weight 110.455, kg, Priority: STAT, Start date: 02/27/17 18:55:00 CDT, Stop date: 02/27/17 18:55:00 CDT Saline Flush 0.9% Notes: Inactive (Same as: 2016 [place] BD Posiflush ) AMLODIPINE one daily Active BESY-BENAZEPRIL HCL 2013 Medi johnny 10-40 MG [facility] DYAZIDE 37.5-25 MG one daily Active CAPS 2014 Medical Group AMLODIPINE one daily Active BESY-BENAZEPRIL HCL 2013 Medi johnny 5-40 MG [facility] ATORVASTATIN CALCIUM one Active 10 MG TABS tablet 2013 Medical every Group evening AMLODIPINE One No Longer BESY-BENAZEPRIL HCL tablet Active 2013 Medi johnny 5-20 MG [facility] every Group morning. BACTRIM [...] Category Reaction Severity Reaction Status Date Comments S ource type Reported No Known Assertion Drug Misch er Medication allergy Neuro Allergies Immunizations No Data Provided for This Section Results Order Name Results Value Reference Date Interpretation Comments Hafsa rce Range CHEM PANEL eGFR 95 02/27 Result Comment: The [place] eGFR is calculated using the CKD-EPI formula. [...] CHEM PANEL ASPARTATE 13 0 - 37 06/11 MH [place] CHEM PANEL BUN 10 7 - 22 06 [place] CHEM PANEL Creatinine 0.74 0.50 - 06/11 MH Lvl 1.40 [place] CHEM PANEL ALANINE 28 0 - 65 06/ AMINO [place] ASE CHEM PANEL Albumin Lvl 3.6 3.5 - 5.0 02/27 [place] CHEM PANEL Alk Phos 81 39 - 136 02/27 [place] CHEM PANEL Glucose Lvl 123 70 - 99 02/27 [place] CHEM PANEL Bili Total 0.3 0.2 - 1.3 02/27 [place] CHEM PANEL Sodium Lvl 143 135 - 145 02/27 [place] CHEM PANEL Total Protein 7.9 6.4 - 8.4 02/27 [place] CHEM PANEL Calcium Lvl 8.9 8.5 - 10.5 02/27 [place] CHEM PANEL Chloride Lvl 107 95 - 109 02/27 [place] CHEM PANEL Potassium Lvl 3.9 3.5 - 5.1 02/27 [place] CHEM PANEL CO2 29 24 - 32 02/27 [place] CHEM PANEL A/G Ratio 0.8 0.7 - 1.6 02/27 [place] CHEM PANEL AGAP 10.9 10.0 - 02/27 MH 20.0 [place] CHEM PANEL Globulin 4.3 2.7 - 4.2 02/27 [place] CHEM PANEL B/C Ratio 14 6 - 25 02/27 [place] CHEM PANEL Lipase Lvl 157 73 - 393 02/27 [place] ENDOCRINOLO hCG Tot 1 06/ [place] HEMATOLOGY Segs 64.7 45.0 - 02/27 MH 75.0 [place] HEMATOLOGY Lymphocytes # 2.9 1.0 - 5.5 02/27 [place] HEMATOLOGY Basophils # 0.1 0.0 - 0.2 02/27 [place] HEMATOLOGY Eosinophils # 0.4 0.0 - 0.5 02/27 [place] HEMATOLOGY Monocytes # 0.9 0.0 - 0.8 02/27 [place] HEMATOLOGY Segs-Bands # 7.8 1.5 - 8.1 02/27 /2016 [place] HEMATOLOGY Eosinophils 3.2 0.0 - 4.0 02/27 [place] HEMATOLOGY Monocytes 7.4 2.0 - 12.0 02/27 [place] HEMATOLOGY Lymphocytes 24.1 20.0 - 02/27 MH 40.0 /2016 [place] HEMATOLOGY Basophils 0.6 0.0 - 1.0 02/27 [place] HEMATOLOGY Hct 40.4 36.0 - 02/27 MH 48.0 /2016 [place] HEMATOLOGY Hgb 13.9 12.0 - 02/27 MH 16.0 /2016 [place] HEMATOLOGY RBC X 10x6 4.61 4.20 - 02/27 MH 5.40 /2016 [place] HEMATOLOGY WBC X 10x3 12.0 3.7 - 10.4 02/27 [place] HEMATOLOGY MPV 8.1 7.4 - 10.4 02/27 [place] HEMATOLOGY RDW 13.9 11.5 - 02/27 MH 14.5 [place] HEMATOLOGY Platelet 279 133 - 450 02/27 [place] HEMATOLOGY MCHC 34.5 32.0 - 02/27 MH 36.0 [place] HEMATOLOGY MCH 30.2 27.0 - 02/27 MH 31.0 [place] HEMATOLOGY MCV 87.5 80.0 - 02/27 MH 98.0 [place] URINE AND UA Bacteria Moderate None Seen 02/27 STOOL /HPF /HPF [place] URINE AND UA Sq Epi Few /LPF Few /LPF 02/27 STOOL /2016 [place] URINE AND UA WBC 11-20 None Seen 02/27 STOOL /HPF /HPF [place] URINE AND UA RBC 21-50 0 - 2 02/27 STOOL /HPF /2016 [place] URINE AND UA Nitrite See Note Negative 02/27 STOOL (02/27/17 5:29 PM) /2016 [place] URINE AND UA Leuk Est Moderate Negative 02/27 STOOL *ABN* /2016 [place] (02/27/17 5:29 PM) URINE AND UA 4.0 0.1 - 1.0 02/27 STOOL Urobilinogen /2016 [place] URINE AND UA Glucose See Note 1 Negative 02/27 Result STOOL (02/27/17 5:29 PM) /2016 Comment: Patricia and Unable to determine due to interference from color of urine.
17:57 cg URINE AND UA Ketones Negative Negative 02/27 STOOL *NA* /2016 [place] (02/27/17 5:29 PM) URINE AND UA Bili See Note Negative 02/27 STOOL (02/27/17 5:29 PM) /2016 [place] URINE AND UA Blood Large Negative 02/27 STOOL *ABN* /2016 [place] (02/27/17 5:29 PM) URINE AND UA Protein >=300 Negative 02/27 STOOL mg/dL mg/dL [place] URINE AND UA Turbidity Slight Cloudy Clear 02/27 STOOL (02/27/17 5:29 PM) /2016 [place] URINE AND UA Spec Grav >=1.030 <=1.030 02/27 STOOL *ABN* [place] (02/27/17 5:29 PM) URINE AND UA pH 5.5 5.0 - 8.0 02/27 STOOL /2016 [place] URINE AND UA Color [place] Yellow 02/27 STOOL *ABN* /2016 [place] (02/27/17 5:29 PM) URINE CHEM U Preg Negative Negative 02/27 (02/27/17 5:29 PM) /2016 [place] Chemistry HGBA1C 5.5 - 5.6 05/10 Medical [...] Group Chemistry TSH 1.680 0.360 - 01/17 [facility] Group Chemistry CHOLESTEROL 271 - 199 [...] Group Chemistry TSH 1.680 0.360 - 01/17 Medical Group Hematology HGB 14.9 12.0 - 01/17 16.0 [facility] Group Hematology HCT 43.8 36.0 - 01/17 48.0 [facility] Group Hematology PLATELETS 251 K/CMM 133 - 450 01/17 [facility] Hematology HGB 14.9 12.0 - 01/17 16. 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, cont to have upper abd pain, radiating to left side CT COMPARISON: CT scan 02/27/2017 TECHNIQUE: Helical acquisiti on of the abdomen. Axial, sagittal and coronal images MPR's were interpreted. This exam was performed according to our department dose optimization protocol, which i ncludes automated exposure c ontrol, adjustment of the mA and/or kV according to patient size and/or use of iterative reconstruction technique. IV contrast: 100 cc Omnipaque 300 Enteric contrast: None. DLP: 2604 mGy-cm FINDINGS: Lower thorax: Visualized portions are unremarkab le. Liver/Gallbladder/Biliary tree: Unremarkable. Pancreas: Unremarkable. Spleen: Unremarkable. Adrenals: Unremarkable. Kidneys/Ureters: Unremarkable. Gastrointestinal tract: Stom ach is unremarkable. No dilated loops of bowel. Appendix is normal. Scattered diverticuli seen within the large bowel, without evidence to suggest acute diverticulitis. Peritoneum/Mesentery/Retrope ritoneum: No peritoneal fluid. No pneumoperitoneum. Lymph nodes: Unremarkable. Vasculature: No abdominal aortic aneurysm. Bones/Soft tissues: No acute abnormality. No suspicious osteoblastic or osteolytic lesions. IMPRESSION: No acute abnormalities seen within the abdomen. Pancreas is unremarkable. ED Abdomen/Pelvis IV Study: CT abdomen and pelvis with contrast. 02/27/2017 [facility] contrast only CT HISTORY: Left lower quadrant pain Comments: Abdomen pelvic CT was obtain ed utilizing multiple axial images from the lung bases to the pelvic outlet. Intravenous contrast was given. Sagittal and coronal reconstructions were reviewed. Total exam DLP is 1695 mgy-cm. Visualized lower chest: The lung bases are clear . Normal size heart. ABDOMEN: The liver, spleen, gallbladder, kidneys, pancreas and adrenal glands are within normal limits. The small and large bowel lo ops are nondilated. No evidence of acute appendicitis or diverticulitis. No free intraperitoneal air or fluid collections . Urinary bladder is underdist ended. 2 x 1.7 cm low-density region within the urinary bladder is not filled with contrast in the delayed images and is of uncertain etiology. Correlate with cystoscopy. Bones are within normal limits. Impression: 2 x 1.7 cm low-density regio n within the urinary bladder is not filled with contrast in the delayed images and is of uncertain etiology. Correlate with cystoscopy. Colonic diverticulosis without acute diverticuli tis. Consultation Notes No Data Provided for This Section Discharge Summaries No Data Provided for This Section History and Physicals No Data Provided for This Section Vital Signs Vital Sign Value Date Comments Source Systolic (mm Hg) 132 12/05/2019 [facility]oxy [facility] Diastolic (mm Hg) 77 12/05/2019 [facility] Ne uro Heart Rate 85 12/05/2019 [facility] Neuro Respitory Rate 16 12/05/2019 [facility] Neuro Height 167.64 cm 12/05/2019 [facility] Neuro Weight 111.818 12/05/2019 [facility] Neuro BMI Calculated 39.79 12/05/2019 [facility] Neuro Systolic (mm Hg) 137 10/12/2019 [facility] Group Diastolic (mm Hg) 83 10/12/2019 Medical Group Heart Rate 72 10/12/2019 [facility] Grou p Height 167.64 cm 10/12/2019 Medical Gr[facility] p Weight 110.511 10/12/2019 [facility] Gr[facility] p BMI Calculated 39.32 10/12/2019 Medical Gr oup Systolic (mm Hg) 120 08/08/2019 [facility] Roxy ro Diastolic (mm Hg) 63 08/08/2019 [facility] Ne uro Heart Rate 77 08/08/2019 [facility] Neuro Respitory Rate 16 08/08/2019 [facility] Neuro Height 167.64 cm 08/08/2019 [facility] Neuro Weight 112.273 08/08/2019 [facility] Neuro BMI Calculated 39.95 [facility]/08[facility] Systolic (mm Hg) 122 06/27/2019 [facility] Roxy ro Diastolic (mm Hg) 74 06/27/2019 [facility] Ne uro Heart Rate 79 06/27/2019 [facility] Neuro Respitory Rate 16 06/27/2019 [facility] Neuro Height 167.64 cm 06/27/2019 [facility] Neuro Weight 118.182 06/27/2019 [facility] Neuro BMI Calculated 42.05 06/27/2019 [facility] Systolic (mm Hg) 140 05/18/2019 [facility] Roxy ro Diastolic (mm Hg) 87 05/18/2019 [facility] Ne uro Heart Rate 91 05/18/2019 [facility] Neuro Respitory Rate 16 05/18/2019 [facility] Height 167.64 cm 05/18/2019 [facility] Weight 117.727 05/18/2019 [facility] BMI Calculated 41.89 05/18/2019 [facility] Weight 118.636 04/03/2019 [facility] BMI Calculated 42.21 04/03/2019 [facility] Height 167.64 cm 04/03/2019 [facility] Heart Rate 82 04/03/2019 [facility] Respitory Rate 16 04/03/2019 [facility] Systolic (mm Hg) 121 04/03/2019 [facility] Roxy ro Diastolic (mm Hg) 83 04/03/2019 [facility] Ne uro Systolic (mm Hg) 133 02/28/2017 [place] Diastolic (mm Hg) 63 02/28/2017 [place] Respitory [facility] 18 [facility] Temperature Oral (F) 98 F 02/28/2017 [place] Heart Rate 82 02/28/2017 [place] Systolic (mm Hg) 142 02/28/2017 [facility] Diastolic (mm Hg) 70 02/28/2017 [place] Heart Rate 122 02/27/2017 [place] Systolic (mm Hg) 128 02/27/2017 [facility] Diastolic (mm Hg) 85 02/27/2017 [place] Temperature Oral (F) 98.6 F 02/27/2017 [place] Respitory Rate 18 02/27/2017 [facility] Height 167.64 cm 02/27/2017 [facility] BMI Calculated 39.3 02/27/2017 [place] Weight 110.455 02/27/2017 [facility] Height 65.5 08/23/2014 [facility] p Weight 242 08/23/2014 Medical Gr[facility] p Temperature Oral (F) 98.1 F 08/23/2014 [facility] Heart Rate 96 08/23/2014 [facility] Gr[facility] p Systolic (mm Hg) 142 08/23/2014 [facility] Diastolic (mm Hg) 90 08/23/2014 [facility] Group Weight 242 05/10/2014 Medical Grou p Temperature Oral (F) 98.2 F 05/10/2014 [facility] Group Heart Rate 84 05/10/2014 [facility] Gr[facility] p Systolic (mm Hg) 144 05/10/2014 [facility] Diastolic (mm Hg) 96 05/10/2014 [facility] Height 65.5 05/10/2014 [facility] Gr[facility] p Weight 242 03/29/2014 Medical Grou p Temperature Oral (F) 97.8 F 03/29/2014 [facility] Group Heart Rate 98 03/29/2014 Medical Gr[facility] p Systolic (mm Hg) 140 03/29/2014 [facility] Diastolic (mm Hg) 86 03/29/2014 [facility] Group Height 65.5 01/17/2014 [facility] Gr[facility] p Weight 240 01/17/2014 Medical Grou p Temperature Oral (F) 98.0 F 01/17/2014 [facility] Group Heart Rate 82 01/17/2014 [facility] Grou p Systolic (mm Hg) 140 01/17/2014 [facility] Group Diastolic (mm Hg) 90 01/17/2014 [facility] Group Encounters Location Location Encounter Encounter Reason Attending ADM DC Stat us Source Details Type Number For Provider Date Date Visit [facility] Lab Report [id number] Samson 01/17 01/[address] [facility], Medical Medical MD Group Group [facility] Office [id number] Samson 03/29 03/29 Srini Visit 1590 , Medical Medical MD Group Group [facility] Office [id number] Samson 05/10 05/10 Srini Visit [address] [facility] Medical Medical MD Group Group [facility] Lab Report [id number] Samson 05/10 05/10 Srini 2930 , Medical Medical MD Group Group [facility] Office [id number] Samson 08/23 08/23 [place] Visit [address] [facility], Medical Medical MD Group Group [facility] Emergency [id number] Spike 02/27 02/28 Srini Billy /2016 [facility] MNA Outpatient [id number] Ruy 04/03 04/04 [facility] /2018 Neuro [place] Outpatient [id number] Ruy 05/18 [facility] Srini MNA Outpatient [id number] Ruy 05/18 05/19 [facility] Neurology Kre [facility] [place] Outpatient [id number] Ruy 06/27 Active [facility]ini MNA Outpatient [id number] Ruy 06/27 06/28 [facility] Neurology Kre [facility] [place] Outpatient [id number] Ruy 08/08 Active [facility] Srini MNA Outpatient [id number] Ruy 08/08 08/09 [facility] Neurology Kre [facility] [place] Outpatient [id number] Nadim 10/12 Active [facility] /2019 [place] [facility] Outpatient [id number] Nadim 10/12 10/13 [facility] Medic al ology [facility] [id number] 10/13 10/14 Gastroenter Visit Medic al ology [facility] Outpt Diag [id number] Nadim 10/30 10/31 [facility] [place] Outpatient [id number] Ruy 12/04 Active [facility] [place] MNA Outpatient [id number] Ruy 12/04 12/05 [facility] Neurology Kre [facility] [place] Outpatient [id number] Ruy 01/09 Active [facility] [place] MNA Outpatient [id number] Ruy 01/09 01/10 [facility] Neurology Kre [facility] [place] Outpatient [id number] Ruy 02/06 Active [facility] [place] Outpatient [id number] Ruy 04/02 Active [facility] /2019 Srini Procedures Procedure Code Date Perfomer Comments Source smoking/tobacco 14 01/17/2014 DONE Medica l cessation, patient Group education and counseling mammogram [id number] 04/19/2013 [facility] vaginal Pap smear [id number] 02/17/2013 [facility]ny results Group Assessment and Plan No Data Provided for This Section Plan of Care No Data Provided for This Section Social History Social History Date Source Social History TypeResponse 04/03/2019 [facility] Employment/School Status: Employed. Work/School description: [employer]. Smoking Status Current every day smoker; Type: Cigarett es; Exposure to Tobacco Smoke Unable to obtain; Cigarette Smoking Last 365 Days Yes; Reg Smoking Cessation Counseling No entered on: 01/10/20 Social History TypeResponse 04/03/2019 Lisa george Employment/School Status: Employed. Work/School description: [employer]. Smoking Status Current every day smoker; Lives with chau eone who smokes; Cigarette Smoking Last 365 Days Yes; Reg Smoking Cessation Counseling Yes entered on: 10/12/19 Social History TypeResponse 04/03/2019 ROCAEL [place] Employment/School Status: Employed. Work/School description: [employer]. Smoking Status Current every day smoker; Lives with chau eone who smokes; Cigarette Smoking Last 365 Days Yes; Reg Smoking Cessation Counseling Yes entered on: 10/12/19 Social History TypeResponse 02/27/2017 [place] Smoking Status Current every day smoker; Lives with chau eone who smokes; Cigarette Smoking Last 365 Days Yes; Reg Smoking Cessation Counseling Yes Family History No Data Provided for This Section Advance Directives No Data Provided for This Section Functional Status No Data Provided for This Section
--- OUTSIDE RECORDS SUMMARY | 2020-02-03 23:26 | XMS REPORT | Continuity of Care Document ---
:[address] [facility] up Care Team Providers Name Role Phone MD Uriel, Samson Unavailable Unavailable Insurance Providers Payer name Policy type / Coverage type Policy ID Covered alliance party ID Policy Simmons AETNA AETNA Encounters Encounter Performer Location Date Office Visit Samson Trevino MD [facility] Mar 29, 2014 Problems Problem Effective Dates Problem Status HYPERTENSION January 17, 2014 Active DYSLIPIDEMIA January 17, 2014 Active ANXIETY DEPRESSION January 17, 2014 Active OBESITY January 17, 2014 Active PHYSICAL EXAMINATION January 17, 2014 Active RHINITIS Mar 29, 2014 Active UTI Mar 29, 2014 Active Procedures Date Description Comments January 17, 2014 smoking status current every day [facility] Feb 17, 2013 vaginal Pap smear results Complete January 17, 2014 smoking/tobacco cessation, patient educa tion DONE and counseling Apr 19, 2013 mammogram Complete Mar 29, 2014 smoking status Current every day [facility] Mar 29, 2014 smoking/tobacco cessation, patient educa tion yes and counseling Medications Medication Instructions Start Date Status DIOVAN HCT 160-12.5 MG TABS one daily January 17, 2014 Acti ve LAMICTAL 150 MG TABS 1 tablet daily [...] MG TABS one bid. Mar 29, 2014 Activ e Vital Signs Date Description Test Result January [...] 2013January 17, platelet count PLATELETS 251 K/CMM 659-339 9420 /mm3 January 17, hemoglobin, blood HGB 14.9 g/dL 12.0-16.0 2013January 17, hematocrit, blood HCT 43.8 % 36.0-48.0 2013January 17, platelet count PLATELETS 251 K/CMM 405-818 5823 /mm3 January 17, cholesterol, serum CHOLESTEROL 271 mg/dl <=199 High 2013January 17, triglyceride, TRIGLYCERIDE 574 mg/dl <=149 High 2013 serum, fasting January 17, HDL cholesterol, HDL 31 mg/dl >=61 Low 2013 serum January 17, LDL cholesterol, LDL See Note <=99 2014 serum mg/dL mg/dl January 17, sodium, serum SODIUM 137 MEQ/L 839-055 3853 mmol/L January 17, potassium, serum POTASSIUM 4.6 [...] TSH 1.680 0.360-3.740 2014 hormone, serum uIU/mL January 17, cholesterol, serum CHOLESTEROL 271 mg/dl <=199 High 2013January 17, triglyceride, TRIGLYCERIDE 574 mg/dl <=149 High 2013 serum, fasting January 17, HDL cholesterol, HDL 31 mg/dl >=61 Low 2013 serum January 17, LDL cholesterol, LDL See Note <=99 2013 serum mg/dL mg/dl January 17, sodium, serum SODIUM 137 MEQ/L 861-165 6010 mmol/L January 17, potassium, serum POTASSIUM 4.6 MEQ/L 3.5-5.1 2013 mmol/L January 17, creatinine, serum CREATININE 0.7 mg/dL 0.5-1.4 2013January 17, urea nitrogen, BUN 15 mg/dL -2013 blood January 17, urea BUN/CREAT 21 null [...]
--- OUTSIDE RECORDS SUMMARY | 2020-02-03 23:26 | XMS REPORT | Continuity of Care Document ---
:1970 Author Organization [facility] up Care Team Providers Name Role Phone MD Uriel, Samson Unavailable Unavailable Insurance Providers Payer name Policy type / Coverage type Policy ID Covered democrat ID Policy Simmons AETNA AETNA Encounters Encounter Performer Location Date Lab Report Samson Trevino MD [facility] [place] January 17, 2014 Problems Problem Effective [...] 2013January 17, platelet count PLATELETS 251 K/CMM 605-455 1238 /mm3 January 17, hemoglobin, blood HGB 14.9 g/dL 12.0-16.0 2013January 17, hematocrit, blood HCT 43.8 % 36.0-48.0 2013January 17, platelet count PLATELETS 251 K/CMM 940-258 3700 /mm3 January 17, cholesterol, serum CHOLESTEROL 271 mg/dl <=199 High 2013January 17, triglyceride, TRIGLYCERIDE 574 mg/dl <=149 High 2013 serum, fasting January 17, HDL cholesterol, HDL 31 mg/dl >=61 Low 2013January 17, LDL cholesterol, LDL See Note <=99 2013 serum mg/dL mg/dl January 17, sodium, serum SODIUM 137 MEQ/L 418-750 8889 mmol/L January 17, potassium, serum POTASSIUM 4.6 [...] January 17, sodium, serum SODIUM 137 MEQ/L 962-521 9384 mmol/L January 17, potassium, serum POTASSIUM 4.6 [...]
--- OUTSIDE RECORDS SUMMARY | 2020-02-03 23:26 | XMS REPORT | Continuity of Care Document ---
:1970 Author Organization [facility] up Care Team Providers Name Role Phone MD Uriel, Samson Unavailable Unavailable Insurance Providers Payer name Policy type / Coverage type Policy ID Covered constitution party ID Policy Simmons AETNA AETNA Encounters Encounter Performer Location Date Lab Report Samson Trevino MD [facility] May 10, 2014 Problems Problem Effective Dates Problem Status HYPERTENSION January 17, 2014 Active DYSLIPIDEMIA January 17, 2014 Active ANXIETY DEPRESSION January 17, 2014 Active OBESITY January 17, 2014 Active PHYSICAL EXAMINATION January 17, 2014 Active RHINITIS Mar 29, 2014 Active UTI Mar 29, 2014 Active POLYDIPSIA May 10, 2014 Active Procedures Date Description Comments January 17, 2014 smoking status current every day [facility] Feb 17, 2013 vaginal Pap smear [...] 2013January 17, platelet count PLATELETS 251 K/CMM [phone] /mm3 January 17, hemoglobin, blood HGB 14.9 g/dL 12.0-16.0 2013January 17, hematocrit, blood HCT 43.8 % 36.0-48.0 2013January 17, platelet count PLATELETS 251 K/CMM 856-414 4722 /mm3 January 17, cholesterol, serum CHOLESTEROL 271 mg/dl <=199 High 2013January 17, triglyceride, TRIGLYCERIDE 574 mg/dl <=149 High 2013 serum, fasting January 17, HDL cholesterol, HDL 31 mg/dl >=61 Low 2013 serum January 17, LDL cholesterol, LDL See Note <=99 2013 serum mg/dL mg/dl January 17, sodium, serum SODIUM 137 MEQ/L 148-463 3715 mmol/L January 17, potassium, serum POTASSIUM 4.6 [...] January 17, sodium, serum SODIUM 137 MEQ/L 120-973 8687 mmol/L January 17, potassium, serum POTASSIUM 4.6 [...] 10, hemoglobin A1C, HGBA1C 5.5 % <=5.6 2013 blood, as % of total hemoglobin May [...]
--- OUTSIDE RECORDS SUMMARY | 2020-02-03 23:27 | XMS REPORT | Continuity of Care Document ---
:1970 Author Organization [facility] up Care Team Providers Name Role Phone MD Uriel, Samson Unavailable Unavailable Insurance Providers Payer name Policy type / Coverage type Policy ID Covered alliance party ID Policy Simmons AETNA AETNA Encounters Encounter Performer Location Date Office Visit Samson Trevino MD [facility] Aug 23, 2014 Problems Problem Effective Dates [...] 17, 2014 smoking status current every day [place] Feb 17, 2013 vaginal Pap smear results Complete January 17, 2014 smoking/tobacco cessation, patient educa tion DONE and counseling Apr 19, 2013 mammogram Complete Mar 29, 2014 smoking status Current every day [place] Mar 29, 2014 smoking/tobacco cessation, patient educa tion yes and counseling May 10, 2014 smoking status Current every day [place] May 10, 2014 smoking/tobacco cessation, patient educa tion yes and counseling Aug 23, 2014 smoking status Current every day [facility] Aug 23, 2014 smoking/tobacco cessation, patient educa tion yes [...] One tablet every morning. Ju l 2013 Inactive MG CAPS AMLODIPINE BESY-BENAZEPRIL HCL 10-40 one daily Aug 23 4 Active MG CAPS DYAZIDE 37.5-25 MG CAPS one daily Aug 23, 2014 Active Vital Signs Date Description Test Result January 17, 2014 height BrandonM - 8302-2 HEIGHT 65.5 in January 17, 2014 weight Edel&Puneet - 3141-9 WEIGHT 240 lb January 17, 2014 temperature E&M TEMPERATURE 98.0 deg f January 17, 2014 pulse rate E&M - 8867-4 PULSE RATE 82 /min January 17, 2014 blood pressure, systolic - 8480-6 BP SYSTOLIC 140 mm Hg January 17, 2014 blood pressure, diastolic - 8462-4 BP DIASTOLIC 90 mm Hg Mar 29, 2014 weight E&M - 3141-9 WEIGHT 242 lb Mar 29, 2014 temperature E&M TEMPERATURE 97.8 deg f Mar 29, 2014 pulse rate E&M - 8867-4 PULSE RATE 98 /min Mar 29, 2014 blood pressure, systolic - 8480-6 BP SYSTOLIC 140 mm Hg Mar 29, 2014 blood pressure, diastolic - 8462-4 BP DIASTOLIC 86 mm Hg May 10, 2014 weight Edel&M - 3141-9 WEIGHT 242 lb May 10, 2014 temperature E&M TEMPERATURE 98.2 deg f May 10, 2014 pulse rate E&M - 8867-4 PULSE RATE 84 /min May 10, 2014 blood pressure, systolic - 8480-6 BP SYSTOLIC 144 mm Hg May 10, 2014 blood pressure, diastolic - 8462-4 BP DIASTOLIC 96 mm Hg May 10, 2014 height E&M - 8302-2 HEIGHT 65.5 in Aug 23, 2014 height E&M - 8302-2 HEIGHT 65.5 in Aug 23, 2014 weight Edel&M - 3141-9 WEIGHT 242 lb Aug 23, 2014 temperature [...] 2013January 17, platelet count PLATELETS 251 K/CMM 739-268 0415 /mm3 January 17, hemoglobin, blood HGB 14.9 g/dL 12.0-16.0 2013January 17, hematocrit, blood HCT 43.8 % 36.0-48.0 2013January 17, platelet count PLATELETS 251 K/CMM 118-842 1400 /mm3 January 17, cholesterol, serum CHOLESTEROL 271 mg/dl <=199 High 2013January 17, triglyceride, TRIGLYCERIDE 574 mg/dl <=149 High 2013 serum, fasting January 17, HDL cholesterol, HDL 31 mg/dl >=61 Low 2013January 17, LDL cholesterol, LDL See Note <=99 2013 serum mg/dL mg/dl January 17, sodium, serum SODIUM 137 MEQ/L 139-457 4179 mmol/L January 17, potassium, serum POTASSIUM 4.6 [...] January 17, sodium, serum SODIUM 137 MEQ/L [phone] mmol/L January 17, potassium, serum POTASSIUM 4.6 [...] 10, triglyceride, TRIGLYCERIDE 246 mg/dl <=149 High 2014 serum, fasting May 10, HDL cholesterol, HDL 36 mg/dl >=61 Low 2013 serum May 10, LDL cholesterol, LDL 90 mg/dl <=99 2013 serum Feb 17, vaginal Pap smear PAP SMEAR Complete 2012 results null
--- OUTSIDE RECORDS SUMMARY | 2020-02-03 23:27 | XMS REPORT | Summary of Care ---
:1970 Author Organization [facility] [place] Address [address] [place] [address] Encounter HQ Ashleyntr_clemencia(FIN) [id number] Date(s): 10/12/19 - 10/12/19 [facility] [place] [address] [place] [address] [phone] Discharge Disposition: Home or Self Care Attending Physician: Mike Saleh MD Vital Signs Most recent to oldest [Reference Range]: 1 Height 167.64 cm (10/12/19 11:34 AM) Blood Pressure [90-140/60-90 mmHg] 137/83 mmHg (10/12/19 11:34 AM) Peripheral Pulse Rate [60-100 bpm] 72 bpm (10/12/19 11:34 AM) Weight 110.511 kg (10/12/19 11:34 AM) Body Mass Index 39.32 m2 (10/12/19 11:34 AM) Problem List Condition Effective Dates Status Health Status Informant Diabetes(Confirmed) Active Diverticulitis(Confirmed) Resolved Dyslipidemia1 01/17/14 Active Excessive thirst2 05/10/14 Resolved Headache(Confirmed) Active Hypercholesterolemia(Confirmed) Active Hypertensive disorder3 01/17/14 Active Lumbar radiculopathy(Confirmed) Active 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 Work/Scho ol description: [place]. Smoking Status Current every day smoker; Li ves with someone who smokes; Cigarette Smoking Last 365 Days Yes; Reg Smoking Cessation Counseling Yes entered on: 10/12/19 Assessment and Plan No data available for this section
--- OUTSIDE RECORDS SUMMARY | 2020-02-03 23:27 | XMS REPORT | Summary of Care ---
:1970 Author Organization [facility] [place] Address [address] [place] [address] Encounter HQ Encntr_alias(FIN) [id number] Date(s): 10/13/19 - 10/14/19 [facility] [place] [address] [place] [address] [phone] Vital Signs No data available for this section Problem List Condition Effective Dates Status Health Status Informant Diabetes(Confirmed) Active Diverticulitis(Confirmed) Resolved Dyslipidemia1 01/17/14 Active Excessive thirst2 05/10/14 Resolved Headache(Confirmed) Active Hypercholesterolemia(Confirmed) Active Hypertensive disorder3 01/17/14 Active Lumbar radiculopathy(Confirmed) Active 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 Work/Scho ol description: [employer]. Smoking Status Current every day smoker; Li ves with someone who smokes; Cigarette Smoking Last 365 Days Yes; Reg Smoking Cessation Counseling Yes entered on: 10/12/19 Assessment and Plan No data available for this section
--- OUTSIDE RECORDS SUMMARY | 2020-02-03 23:28 | XMS REPORT | Summary of Care ---
:1970 Author Organization [facility] [place] Address [address] [place] [address]- Encounter HQ Encntr_alias(FIN) [id number] Date(s): 10/30/19 - 10/30/19 [facility] Outpatient Imaging [address] [address]- [place] Discharge Disposition: Home or Self Care Attending Physician: Mike Saleh MD Referring Physician: Mike Saleh MD Vital Signs No data available for this [...] of knee6 08/23/14 Resolved Temporomandibular 08/23/14 Resolved tltam-clbv-glquysdyrsp syndrome7 Urinary tract infectious disease8 03/29/14 Resolved [...]
--- OUTSIDE RECORDS SUMMARY | 2020-02-03 23:28 | XMS REPORT | Summary of Care ---
:1970 Author Organization [facility] [place] Address [address] [place] [address]- Encounter HQ Neemar_clemencia(FIN) [id number] Date(s): 06/27/19 - 06/27/19 [facility] [address] [place] [address]- [phone] Discharge Disposition: Home or Self Care Attending Physician: Ruy Mac MD Referring Physician: Edvin Perez MD Vital Signs Most recent to oldest [Reference Range]: 1 Height 167.64 cm (06/27/19 3:49 PM) Blood Pressure [90-140/60-90 mmHg] 122/74 mmHg (06/27/19 3:49 PM) Respiratory Rate [14-20 BRMIN] 16 BRMIN (06/27/19 3:49 PM) Peripheral Pulse Rate [60-100 bpm] 79 bpm (06/27/19 3:49 PM) Weight 118.182 kg (06/27/19 3:49 PM) Body Mass Index 42.05 m2 (06/27/19 3:49 PM) Problem List Condition Effective Dates Status Health Status Informant Diabetes(Confirmed) Active Diverticulitis(Confirmed) Resolved Dyslipidemia1 01/17/14 Active Excessive thirst2 05/10/14 Resolved Headache(Confirmed) Active Hypercholesterolemia(Confirmed) Active Hypertensive disorder3 01/17/14 Active Lumbar radiculopathy(Confirmed) Active 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
--- OUTSIDE RECORDS SUMMARY | 2020-02-03 23:28 | XMS REPORT | Summary of Care ---
:1970 Author Organization [facility] Neu[facility] [place] Address [address] [place] [address]- Encounter HQ Jorge(FIN) [id number] Date(s): 08/08/19 - 08/08/19 [facility] [address] [place] [address]- [phone] Discharge Disposition: Home or Self Care Attending Physician: Ruy Mac MD Vital Signs Most recent to oldest [Reference Range]: 1 Height 167.64 cm (08/08/19 2:55 PM) Blood Pressure [90-140/60-90 mmHg] 120/63 mmHg (08/08/19 2:55 PM) Respiratory Rate [14-20 BRMIN] 16 BRMIN (08/08/19 2:55 PM) Peripheral Pulse Rate [60-100 bpm] 77 bpm (08/08/19 2:55 PM) Weight 112.273 kg (08/08/19 2:55 PM) Body Mass Index 39.95 m2 (08/08/19 2:55 PM) Problem List Condition Effective Dates Status Health Status Informant Diabetes(Confirmed) Active Diverticulitis(Confirmed) Resolved Dyslipidemia1 01/17/14 Active Excessive thirst2 05/10/14 Resolved Headache(Confirmed) Active Hypercholesterolemia(Confirmed) Active Hypertensive disorder3 01/17/14 Active Lumbar radiculopathy(Confirmed) Active 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 Depression(Confirmed) Active Myocardial infarct(Confirmed) Active Obesity5 01/17/14 Active Tear of medial meniscus of knee6 08/23/14 Resolved Temporomandibular 08/23/14 Resolved kpqsk-arsq-hkivpanrfdc syndrome7 Urinary tract infectious disease8 03/29/14 Resolved [...] Reactions, Alerts No Known Medication Allergies Medications Lyrica 75 mg oral capsule 75 mg = 1 cap, PO, BID, # 60 cap, 3 Refill(s) Start Date: 08/08/19 Stop Date: 12/06/19 Status: Ordered Results No data available for this section Immunizations No data available for this section Procedures No data available for this section Social History Social History Type Response Employment/School Status: Employed. Work/Scho ol description: [place]. Smoking Status Current every day smoker; Li ves with someone who smokes; Cigarette Smoking Last 365 Days Yes; Reg Smoking Cessation Counseling Yes entered on: 08/08/19 Assessment and Plan No data available for this section
--- OUTSIDE RECORDS SUMMARY | 2020-02-03 23:28 | XMS REPORT | Summary of Care ---
:1970 Author Organization [facility] Neu[facility] [place] Address [address] [place] [address]- Encounter HQ Jorge(FIN) [id number] Date(s): 12/05/19 - 12/05/19 [facility] [address] [place] [address]- [phone] Discharge Disposition: Home or Self Care Attending Physician: Ruy Mac MD Vital Signs Most recent to oldest [Reference Range]: 1 Height 167.64 cm (12/05/19 2:12 PM) Blood Pressure [90-140/60-90 mmHg] 132/77 mmHg (12/05/19 2:12 PM) Respiratory Rate [14-20 BRMIN] 16 BRMIN (12/05/19 2:12 PM) Peripheral Pulse Rate [60-100 bpm] 85 bpm (12/05/19 2:12 PM) Weight 111.818 kg (12/05/19 2:12 PM) Body Mass Index 39.79 m2 (12/05/19 2:12 PM) Problem List Condition Effective Dates Status Health Status Informant Diabetes(Confirmed) Active Diverticulitis(Confirmed) Resolved Dyslipidemia1 01/17/14 Active Excessive thirst2 05/10/14 Resolved Headache(Confirmed) Active Hypercholesterolemia(Confirmed) Active Hypertensive disorder3 01/17/14 Active Lumbar radiculopathy(Confirmed) Active 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 Depression(Confirmed) Active Myocardial infarct(Confirmed) Active Obesity5 01/17/14 Active Tear of medial meniscus of knee6 08/23/14 Resolved Temporomandibular 08/23/14 Resolved kpran-xwms-jjficsxkbdz syndrome7 Urinary tract infectious disease8 03/29/14 Resolved [...] cap, PO, BID, # 60 cap, 3 Refill(s), Pharmacy: [facility]/pharmacy #[id number] Start Date: 12/05/19 Stop Date: 04/03/20 Status: OrderedmetFORMIN 500 mg oral tablet, extended release 500 mg = 1 tab, PO, BID-Meals, # 60 tab, 1 Refill(s) Start Date: 12/05/19 Status: Orderedrepaglinide 2 mg oral tablet 4 mg = 2 tab, PO, TID-Before Meals, 0 Refill(s) Start Date: 12/05/19 Status: OrderedTresiba FlexTouch 200 units/mL subcutaneous solution SUB-Q, Daily, 0 Refill(s) Start Date: 12/05/19 Status: Ordered Results No data available for this section Immunizations No data available for this section Procedures No data available for this section Social History Social History Type Response Employment/School Status: Employed. Work/Scho ol description: [employer]. Smoking Status Current every day smoker; Ty pe: Cigarettes; Exposure to Tobacco Smoke Unable to obtain; Cigarette Smoking Last 365 Days Yes; Reg Smoking Cessation Counseling No entered on: 12/05/19 Assessment and Plan No data available for this section
--- OUTSIDE RECORDS SUMMARY | 2020-02-03 23:28 | XMS REPORT | Summary of Care ---
:1970 Author Organization [facility] [place] Address [address] [place] [address]- phone Encounter HQ Jorge(FIN) [id number] Date(s): 01/10/20 - 01/10/20 [facility] [place] [address] [place] [address]- [phone] Discharge Disposition: Home or Self Care Attending Physician: Ruy Mac MD Referring Physician: Ruy Mac MD Vital Signs No data available for this section Problem List Condition Effective Dates Status Health Status Informant Diabetes(Confirmed) Active Diverticulitis(Confirmed) Resolved Dysarthria(Confirmed) Active Dyslipidemia1 01/17/14 Active Excessive thirst2 05/10/14 Resolved Headache(Confirmed) Active Hypercholesterolemia(Confirmed) Active Hypertensive disorder3 01/17/14 Active Lumbar radiculopathy(Confirmed) Active 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 Depression(Confirmed) Active Myocardial infarct(Confirmed) Active Obesity5 01/17/14 Active Paresthesia(Confirmed) Active Tear of medial meniscus of knee6 08/23/14 Resolved Temporomandibular 08/23/14 Resolved lqxvi-rirz-lghhxwknaca syndrome7 Urinary tract infectious disease8 03/29/14 Resolved [...] Reactions, Alerts No Known Medication Allergies Medications meloxicam 15 mg, PO, Daily, 0 Refill(s) Start Date: 01/10/20 Status: Orderedmethocarbamol 0 Refill(s) Start Date: 01/10/20 Status: OrderedNovoLOG 25 unit, SUB-Q, TID-Before Meals, 0 Refill(s) Start Date: 01/10/20 Status: OrderedRepatha 140 mg, SUB-Q, qMonth, 0 Refill(s) Start Date: 01/10/20 Status: OrderedVoltaren Topical 1% topical gel 2 gm, TOP, BID, 0 Refill(s) Start Date: 01/10/20 Status: Ordered Results No data available for this section Immunizations No data available for this section Procedures No data available for this section Social History Social History Type Response Employment/School Status: Employed. Work/Scho ol description: [employer]. Smoking Status Current every day smoker; Ty pe: Cigarettes; Exposure to Tobacco Smoke Unable to obtain; Cigarette Smoking Last 365 Days Yes; Reg Smoking Cessation Counseling No entered on: 01/10/20 Assessment and Plan No data available for this section
[2020-02-03 23:53] LABS: Absolute Lymphocytes (CBC) 2.3 K/uL (0.7-4.9); Basophils % 1.2 % (0-1.3); Hematocrit 44.1 % (36.0-45.0); Lymphocytes % 16.7 % (15.3-44.8); MPV 9.3 fL (7.6-11.3); RBC Red Blood Cell Count 5.01 M/uL (3.86-4.86)
[2020-02-03] MEDS ORDERED: KETOROLAC 30 MG/ML INJ ONE (23:53)
[2020-02-03] MEDS ORDERED: NA CHLORIDE 0.9% 1,000 ML ONE (23:53)
[2020-02-04 00:17] LABS: Albumin 3.9 g/dL (3.4-5.0); Bilirubin Direct 0.1 mg/dL (0-0.2); Bilirubin Total 0.3 mg/dL (0.2-1.0); Potassium 3.7 mmol/L (3.5-5.1); Protein, Total 8.4 g/dL (6.4-8.2)
[2020-02-04 01:01] LABS: Urine Bacteria <20 /HPF (<20); Urine Culture Reflex Order REFLEXED
[2020-02-04 01:04] LABS: Urine Blood TRACE (NEG); Urine Glucose NEGATIVE (NEG); Urine Protein TRACE (NEG); Urine Specific Gravity >1.030 (1.005-1.030); Urine pH 5.5 (5.0-7.0)
--- NOTE | 2020-02-04 01:16 | ER ---
Nurse's Notes [facility] Name: Kelley Ordaz Age: 49 yrs Sex: Female : 1970 Arrival Date: 02/03/2020 Time: 23:25 Bed 13 Private MD: Valentín Farooq H; Edvin Perez B Diagnosis: Acute pancreatitis, unspecified Presentation: 02/02 23:26 Acuity: DEJUAN 3 sg 23:26 Chief complaint: Patient states: LUQ, L side, Left upper back pain, that radiates to sg the Left groin, states having nausea, denies urinary problems, reports constipation beginning Jeremias morning. Coronavirus screen: Proceed with normal triage. Initial Sepsis Screen: Does the patient meet any 2 criteria? No. Patient's initial sepsis screen is negative. Does the patient have a suspected source of infection? No. Patient's initial sepsis screen is negative. Risk Assessment: Do you want to hurt yourself or someone else? Patient reports no desire to harm self or others. Onset of symptoms was January 31, 2020. Care prior to arrival: None. Transition of care: patient was not received from another setting of care. 23:26 Method Of Arrival: Ambulatory sg 23:30 Ebola Screen: No symptoms or risks identified at this time. ea 23:33 Initial Sepsis Screen: Does the patient meet any 2 criteria? No. Patient's initial ea sepsis screen is negative. Does the patient have a suspected source of infection? No. Patient's initial sepsis screen is negative. Risk Assessment: Do you want to hurt yourself or someone else? Patient reports no desire to harm self or others. Onset of symptoms was February 03, 2020. Historical: - Allergies: 23:26 Iodine (Respiratory distress); sg - PMHx: 23:26 CAD; Depression; Diabetes - IDDM; Diabetes - NIDDM; Diverticulitis; High Cholesterol; sg Hypertension; Myocardial infarction; Pancreatitis; - PSHx: 23:26 Carpal Tunnel Repair; D \T\ C; Tubal ligation; Heart stents; TURP; sg - Immunization history:: Adult Immunizations up to date. - Social history:: Smoking status: Patient denies any tobacco usage or history of. Screenin:29 Abuse screen: Denies threats or abuse. Nutritional screening: No deficits noted. ea Tuberculosis screening: No symptoms or risk factors identified. Fall Risk None identified. Assessment: 23:49 General: Appears uncomfortable, Behavior is calm, cooperative, appropriate for age. ea Pain:. Neuro: Level of Consciousness is awake, alert, obeys commands, Oriented to person, place, time. Respiratory: Airway is patent Respiratory effort is even, unlabored, Respiratory pattern is regular, symmetrical. GI: Bowel sounds present X 4 quads. Abd is soft and non tender X 4 quads. 02/03 00:28 Reassessment: Patient and/or family updated on plan of care and expected duration. Pain ea level reassessed. Patient is alert, oriented x 3, equal unlabored respirations, skin warm/dry/pink. 01:30 Reassessment: Patient and/or family updated on plan of care and expected duration. Pain ea level reassessed. Patient is alert, oriented x 3, equal unlabored respirations, skin warm/dry/pink. Discharge instruction given to patient, pt verbalized the understanding of instruction. Pt awaiting on family to drive her home. 01:52 Reassessment: Patient and/or family updated on plan of care and expected duration. Pain ea level reassessed. Patient is alert, oriented x 3, equal unlabored respirations, skin warm/dry/pink. Pt left ED ambulatory tolerating well. Pt left via private vehicle with . Vital Signs: 02/02 23:33 Pulse 98; Resp 18; Temp 98.4; Pulse Ox 100% ; Weight 108.86 kg; Height 5 ft. 6 in. ea (167.64 cm); 02/03 00:27 BP 143 / 96; Pulse 80; Resp 18; Pulse Ox 100% ; ea 01:32 BP 137 / 69; Pulse 75; Resp 18; Pulse Ox 100% on R/A; sg 02/02 23:33 Body Mass Index 38.74 (108.86 kg, 167.64 cm) ea ED Course: 02/02 23:25 Patient arrived in ED. mr 23:25 Edvin Perez MD is Private Physician. mr 23:26 Triage completed. sg 23:26 Arm band placed on. sg 23:27 Dwight Leach MD is Attending Physician. tw4 23:30 Patient has correct armband on for positive identification. Bed in low position. Call ea light in reach. 23:35 Valentín Farooq MD is Private Physician. sg 23:50 Beronica Gold RN is Primary Nurse. ea 23:55 Inserted saline lock: 20 gauge in left antecubital area, using aseptic technique. Blood ea collected. 02/03 00:10 CT Stone Protocol In Process Unspecified. EDMS 01:16 Valentín Farooq MD is Referral Physician. tw4 01:30 No provider procedures requiring assistance completed. ea 01:39 IV discontinued, intact, bleeding controlled, No redness/swelling at site. Pressure ea dressing applied. Administered Medications: 00:08 Drug: NS 0.9% 1000 ml Route: IV; Rate: 1 bolus; Site: left antecubital; ea 01:21 Follow up: Response: No adverse reaction; IV Status: Completed infusion; IV Intake: ea 1000ml 00:08 Drug: TORadol 30 mg Route: IVP; Site: left antecubital; ea 01:00 Follow up: Response: No adverse reaction ea 01:20 Drug: Zofran (Ondansetron) 4 mg Route: IVP; Site: left antecubital; ea 01:54 Follow up: Response: No adverse reaction ea 01:29 Drug: morphine 4 mg {Note: RASS 0.} Route: IVP; Site: left antecubital; ea 01:54 Follow up: Response: No adverse reaction; Pain is decreased; RASS: Alert and Calm (0) ea Intake: 01:21 IV: 1000ml; Total: 1000ml. ea Outcome: 01:16 Discharge ordered by . tw4 01:31 Discharge instructions given to patient, Instructed on discharge instructions, follow ea up and referral plans. medication usage, Demonstrated understanding of instructions, follow-up care, medications, Prescriptions given X 3. 01:55 Discharged to home ambulatory, with family. ea 01:55 Condition: stable 01:55 Patient left the ED. ea Signatures: Dispatcher [employer] EDMS Evert Null RN RN sg April Barrett mr Beronica Gold RN RN ea Wadley, Terrence, MD MD tw4 Corrections: (The following items were deleted from the chart) 01:55 01:54 Response: No adverse reaction; Pain is decreased ea ea
--- NOTE | 2020-02-04 01:17 | EDPHYS ---
Physician Documentation [facility] Name: Kelley Ordaz Age: 49 yrs Sex: Female : 1970 Arrival Date: 02/03/2020 Time: 23:25 Bed 13 Private MD: Valentín Farooq H; Edvin Perez B ED Physician Dwight Leach HPI: 02/02 23:36 This 49 yrs old Female presents to ER via Ambulatory with complaints of tw4 Abdominal Pain, Nausea. 23:36 The patient presents with abdominal pain. Onset: The symptoms/episode began/occurred tw4 just prior to arrival, today. The symptoms radiate to the left flank. Associated signs and symptoms: Pertinent positives: constipation, nausea, Pertinent negatives: nausea, vomiting, and diarrhea, nausea and vomiting, blood in stools, chest pain. The symptoms are described as dull. Modifying factors: The symptoms are alleviated by nothing, the symptoms are aggravated by nothing. The patient has not experienced similar symptoms in the past. 23:36 Severity of pain: At its worst the pain was moderate in the emergency department the tw4 pain is unchanged. Historical: - Allergies: 23:26 Iodine (Respiratory distress); sg - PMHx: 23:26 CAD; Depression; Diabetes - IDDM; Diabetes - NIDDM; Diverticulitis; High Cholesterol; sg Hypertension; Myocardial infarction; Pancreatitis; - PSHx: 23:26 Carpal Tunnel Repair; D \T\ C; Tubal ligation; Heart stents; TURP; sg - Immunization history:: Adult Immunizations up to date. - Social history:: Smoking status: Patient denies any tobacco usage or history of. ROS: 23:36 Constitutional: Negative for fever, chills, and weight loss, Eyes: Negative for injury, tw4 pain, redness, and discharge, Cardiovascular: Negative for chest pain, palpitations, and edema, Respiratory: Negative for shortness of breath, cough, wheezing, and pleuritic chest pain, Back: Negative for injury and pain, MS/Extremity: Negative for injury and deformity, Skin: Negative for injury, rash, and discoloration, Neuro: Negative for headache, weakness, numbness, tingling, and seizure. 23:36 Abdomen/GI: Positive for abdominal pain, Negative for nausea and vomiting, nausea, vomiting, and diarrhea, nausea, vomiting, diarrhea, constipation, abdominal cramps, abdominal distension, anorexia, dysphagia, hematemesis, black/tarry stool, rectal pain, rectal bleeding, bowel incontinence, flatulence. Exam: 23:36 Constitutional: This is a well developed, well nourished patient who is awake, alert, tw4 and in no acute distress. Head/Face: Normocephalic, atraumatic. Chest/axilla: Normal chest wall appearance and motion. Nontender with no deformity. No lesions are appreciated. Cardiovascular: Regular rate and rhythm with a normal S1 and S2. No gallops, murmurs, or rubs. Normal PMI, no JVD. No pulse deficits. Respiratory: Lungs have equal breath sounds bilaterally, clear to auscultation and percussion. No rales, rhonchi or wheezes noted. No increased work of breathing, no retractions or nasal flaring. Back: No spinal tenderness. No costovertebral tenderness. Full range of motion. Skin: Warm, dry with normal turgor. Normal color with no rashes, no lesions, and no evidence of cellulitis. MS/ Extremity: Pulses equal, no cyanosis. Neurovascular intact. Full, normal range of motion. Neuro: Awake and alert, GCS 15, oriented to person, place, time, and situation. Cranial nerves II-XII grossly intact. Motor strength 5/5 in all extremities. Sensory grossly intact. Cerebellar exam normal. Normal gait. 23:36 Abdomen/GI: Inspection: abdomen appears normal, Bowel sounds: normal, Palpation: moderate abdominal tenderness, in the left lower quadrant. Vital Signs: 23:33 Pulse 98; Resp 18; Temp 98.4; Pulse Ox 100% ; Weight 108.86 kg; Height 5 ft. 6 in. ea (167.64 cm); 02/03 00:27 BP 143 / 96; Pulse 80; Resp 18; Pulse Ox 100% ; ea 01:32 BP 137 / 69; Pulse 75; Resp 18; Pulse Ox 100% on R/A; sg 02/02 23:33 Body Mass Index 38.74 (108.86 kg, 167.64 cm) ea MDM: 01:16 Patient medically screened. [facility] 02/02 23:28 Order name: Basic Metabolic Panel; Complete Time: 00:30 4 02/03 00:31 Interpretation: Normal except: GLUC 166; GFR 76; BUN 19. 02/02 23:28 Order name: CBC with Diff; Complete Time: 00:30 02/03 00:31 Interpretation: Normal except: WBC 13.8; RBC 5.01; HCT 44.1; PLT 237; NEUT A 10.2. 02/02 23:28 Order name: Hepatic Function; Complete Time: 00:30 02/03 00:31 Interpretation: Normal except: AST 11; TP 8.4; GLOB 4.5; A/G 0.9. 02/02 23:28 Order name: Lipase; Complete Time: 00:30 02/03 00:31 Interpretation: Normal except: LIP 738. 02/02 23:39 Order name: Urine Microscopic Only [facility] 02/03 00:12 Order name: Urine Dipstick--Ancillary (enter results) [facility] 02/02 23:28 Order name: IV Saline Lock; Complete Time: 00:09 [facility] 02/02 23:28 Order name: Labs collected and sent; Complete Time: 00:09 [facility] 02/02 23:39 Order name: CT Stone Protocol [facility] 02/03 01:03 Order name: Urine Culture [facility] 02/02 23:39 Order name: Urine Dipstick-Ancillary (obtain specimen); Complete Time: 00:35 Administered Medications: 00:08 Drug: NS 0.9% 1000 ml Route: IV; Rate: 1 bolus; Site: left antecubital; ea 01:21 Follow up: Response: No adverse reaction; IV Status: Completed infusion; IV Intake: ea 1000ml 00:08 Drug: TORadol 30 mg Route: IVP; Site: left antecubital; ea 01:00 Follow up: Response: No adverse reaction ea 01:20 Drug: Zofran (Ondansetron) 4 mg Route: IVP; Site: left antecubital; ea 01:54 Follow up: Response: No adverse reaction ea 01:29 Drug: morphine 4 mg {Note: RASS 0.} Route: IVP; Site: left antecubital; ea 01:54 Follow up: Response: No adverse reaction; Pain is decreased; RASS: Alert and Calm (0) ea Disposition: 02/04/20 01:16 Discharged to Home. Impression: Acute pancreatitis, unspecified. - Condition is Stable. - Discharge Instructions: Acute Pancreatitis. - Prescriptions for Zofran 4 mg Oral Tablet - take 1 tablet by ORAL route every 12 hours As needed; 6 tablet. Tramadol 50 mg Oral Tablet - take 1 tablet by ORAL route every 8 hours as needed; 12 tablet. - Medication Reconciliation Form, Thank You Letter, Antibiotic Education, Prescription Opioid Use form. - Follow up: Valentín Farooq MD; When: Upon discharge from the Emergency Department; Reason: Recheck today's complaints, Continuance of care, Re-evaluation by your physician. - Problem is new. - Symptoms have improved. Signatures: Dispatcher [employer] EDMS Evert Null RN RN Beronica Casillas RN RN Dwight Betancourt MD MD tw4 Corrections: (The following items were deleted from the chart) 01:55 01:16 02/04/2020 01:16 Discharged to Home. Impression: Acute pancreatitis, unspecified. ea Condition is Stable. Forms are Medication Reconciliation Form, Thank You Letter, Antibiotic Education, Prescription Opioid Use. Follow up: Valentín Farooq; When: Upon discharge from the Emergency Department; Reason: Recheck today's complaints, Continuance of care, Re-evaluation by your physician. Problem is new. Symptoms have improved. tw4
[2020-02-04] MEDS ORDERED: ONDANSETRON 4 MG/2 ML VIAL ONE (01:23)
[2020-02-04] MEDS ORDERED: MORPHINE 4 MG/ML SYR ONE (01:31)
--- NOTE | 2020-02-04 11:04 | RAD REPORT ---
EXAM DESCRIPTION: CT - Stone Protocol - 02/04/2020 4:40 am CLINICAL HISTORY: FLANK PAIN COMPARISON: None. TECHNIQUE: CT ABDOMEN PELVIS WITHOUT IV CONTRAST on 02/03/2020 11:39 PM CDT This exam was performed according to our departmental dose-optimization program, which includes autom ated exposure control, adjustment of the mA and/or kV according to patient size and/or use of iterati ve reconstruction technique. FINDINGS: Lower lungs are clear. Abdomen: Liver is fatty in attenuation. There is no biliary dilatation. Gallbladder is normal in appe arance. There is questionable minimal inflammation surrounding the body and tail the pancreas. The ad renal glands and kidneys are unremarkable. Abdominal aorta is normal in course and caliber without aneurysm. There is no free air. There is no r etroperitoneal adenopathy. Pelvis: There is no bowel obstruction. Urinary bladder is unremarkable. There is no free fluid. Appen jaye is normal. Uterus is normal in size COMPARISON: 01/23/2020. Skeleton: There are no acute osseous findings. No suspicious bony lesions. IMPRESSION: No renal or ureteral calculi. Questionable mild peripancreatic inflammation. Electronically signed by: Durga Ricardo MD 02/04/2020 12:42 AM CDT Due to temporary technical issues with the PACS/Fluency reporting system, reports are being signed by the in house radiologist as a courtesy to ensure prompt reporting. The interpreting radiologist is f ully responsible for the content of the report.
== END 2020-02-04 01:55 | disposition home or self-care (01) ==
LOC: ER 23:22
DX: K85.90 Acute pancreatitis without necrosis or infection, unspecified (principal); I10 Essential (primary) hypertension; I25.2 Old myocardial infarction; Z95.818 Presence of other cardiac implants and grafts; Z91.048 Other nonmedicinal substance allergy status
CPT/HCPCS: 87088; 85025; 87086; 80048; 36415; 80076; 83690; 76377; 74176; J7030; J2405; 81003; 81015; 96361; 96374; 96375; 99284

== ENCOUNTER 2020-02-17 17:24 | Emergency (ER) | payer BC ==
--- OUTSIDE RECORDS SUMMARY | 2020-02-17 17:26 | XMS REPORT | Clinical Summary ---
:1970 Author Organization [facility] Address [address] [place] [address] Care Team Providers Name Role Phone MD [...] INFLUENZA VACCINE 04/19/2020 Results Not on fileafter 02/16/2019 Advance Directives For more information, please contact: [phone] Type Date Recorded Patient Training Lead Explanati on Advance Directives, Living Will and Medical Power of Cigar Brander
--- OUTSIDE RECORDS SUMMARY | 2020-02-17 17:27 | XMS REPORT | Clinical Summary ---
:1970 Author Organization [facility] Address [address] [place] [address] Care Team Providers Name Role Phone Pcp, No Primary Care Provider Unavailable Allergies Active Allergy Reactions Severity Noted Date Comments Iodinated Contrast Media Swelling High 02/12/2020 Medications Medication Sig Dispensed Refills Start Date End Date Status predniSONE Take 1 tablet 5 tablet 0 02/12/2020 02/17/2020 Act arlene (DELTASONE) 50 MG (50 mg total) tablet by mouth daily for 5 days. albuterol HFA Inhale 2 puffs 1 Inhaler 0 02/12/2020 02/11/2021 Active (VENTOLIN HFA) 90 by mouth via mcg/actuation inhaler every inhaler 4 (four) hours as needed for Wheezing. AZITHROmycin Take 2 tablets 6 tablet 0 02/12/2020 02/17/2020 Active (ZITHROMAX) 250 MG (500 mg total) tablet by mouth daily for 1 day, THEN 1 tablet (250 mg total) daily for 4 days. Take by mouth as directed.. albuterol HFA Inhale 2 puffs 1 Inhaler 0 02/12/2020 02/12/2020 Discontinued (VENTOLIN HFA) 90 by mouth via mcg/actuation inhaler every inhaler 4 (four) hours as needed for Wheezing. AZITHROmycin Take 2 tablets 6 tablet 0 02/12/2020 02/12/2020 Discontinued (ZITHROMAX) 250 MG (500 mg total) tablet by mouth daily for 1 day, THEN 1 tablet (250 mg total) daily for 4 days. Take by mouth as directed.. Active Problems Not on file Encounters Date Type Specialty Care Team Description 02/12/2020 Emergency Emergency Medicine Sean Gray COPD exacerbation (HCC) MD Liset (Primary Dx) 02/12/2020 Orders Only General Internal Medicine 02/12/2020 Travel after 02/16/2019 Social History Tobacco Use Types Packs/Day Years Used Date Never Assessed Sex Assigned at Date Recorded Not on file Job Start Date Occupation Industry Not on file Not on file Not on file Travel History Travel Start Travel End No recent travel history available. Last Filed Vital Signs Vital Sign Reading Time Taken Blood Pressure 124/68 02/12/2020 7:00 PM CDT Pulse 98 02/12/2020 7:00 PM CDT Temperature 36.9 C (98.4 F) 02/12/2020 3:57 PM CDT Respiratory Rate 19 02/12/2020 7:00 PM CDT Oxygen Saturation 96% 02/12/2020 7:00 PM CDT Inhaled Oxygen Concentration - - Weight 108 kg (238 lb) 02/12/2020 3:57 PM CDT Height - - Body Mass Index - - Plan of Treatment Not on file Procedures Procedure Name Priority Date/Time Associated Comments Diagnosis XR CHEST 2 VIEWS STAT 02/12/2020 5:30 Results for this PM CDT procedure are i n the results section. CBC W/PLT COUNT & STAT 02/12/2020 5:15 Result s for this AUTO DIFFERENTIAL PM CDT procedure are in the results section. TROPONIN I STAT 02/12/2020 5:15 Results for this PM CDT procedure are i n the results section. BASIC METABOLIC PANEL STAT 02/12/2020 5:15 Re sults for this (7) PM CDT procedure are i n the results section. B-TYPE NATRIURETIC STAT 02/12/2020 5:15 Resul ts for this FACTOR (BNP) PM CDT procedure are i n the results section. CBC W/PLT COUNT & STAT 02/12/2020 5:15 Result s for this AUTO DIFFERENTIAL PM CDT procedure are in the results section. SARS-COV2/RT-PCR STAT 02/12/2020 5:15 Results for this ([facility]) PM CDT procedure are in the results section. ECG 12-LEAD Routine 02/12/2020 4:18 PM CDT Procedure Note - Interface, External Ris In - 02/12/2020 6:22 PM CDT Ventricular Rate 94 BPM Atrial Rate 94 BPM P-R Interval 124 ms QRS Duration 72 ms Q-T Interval 378 ms QTC Calculation(Bazett) 472 ms P Rosebud 5 degrees R Rosebud -1 degrees T Rosebud 23 degrees Normal sinus rhythm Normal ECG No previous ECGs available ECG 12-LEAD STAT 02/12/2020 4:18 PM CDT Resu lts for this procedure are in the results section . after 02/16/2019 Results XR chest 2 views (02/12/2020 5:30 PM CDT) Specimen Narrative Performed At FINAL REPORT [facility] TECHNIQUE: Frontal and lateral chest rad iographs dated 02/12/2020. CLINICAL HISTORY: Wheezing COMPARISON STUDY: None FINDINGS: There are vague airspace opacities seen bilaterally. Differential diagnosis includes an infectious/inflamm atory processes versus pulmonary edema. No pleural effusion or pneumothorax. Cardiomediastinal silhouette is normal i n size. No pulmonary edema. Degenerative changes are seen in the spi ne. IMPRESSION: Vague airspace opacities see n bilaterally. Differential diagnosis includes an infectious/inflamm atory processes versus pulmonary edema Signed: Orly Esquivel MD Report Verified Date/Time:02/12/2020 17:35:52 Reading Location: [address] Reading Room Procedure Note Interface, External Ris In - 02/12/2020 5:38 PM CDT FINAL REPORT TECHNIQUE: Frontal and lateral chest rad iographs dated 02/12/2020. CLINICAL HISTORY: Wheezing COMPARISON STUDY: None FINDINGS: There are vague airspace opacities seen bilaterally. Differential diagnosis includes an infectious/inflamm atory processes versus pulmonary edema. No pleural effusion or pneumothorax. Cardiomediastinal silhouette is normal i n size. No pulmonary edema. Degenerative changes are seen in the spi ne. IMPRESSION: Vague airspace opacities see n bilaterally. Differential diagnosis includes an infectious/inflamm atory processes versus pulmonary edema Signed: Orly Esquivel MD Report Verified Date/Time: 02/12/2020 1 7:35:52 Reading Location: [address] [facility] Reading Room Performing Organization Address City/State/Zipcode Phone Number [facility] SARS-CoV2/RT-PCR (Symptomatic ONLY) (02/12/2020 5:15 PM CDT) SARS-COV2/RT-PCR Not Detected Not Detected, Negative [facility] SARS-COV-2 PERFORMING LAB [facility] Specimen Other Narrative Performed At Negative results do not preclude SARS-CoV-2 [facility] infection and should not be used as the sole basis for patient management decisions. Negative results must be combined with clinical observations, patient history, and epidemiological information. A false negative result may occur if a specimen is improperly collected, transported or handled. The limit of detection for this assay is 250 copies/mL. This SARS CoV-2 test is a rapid, real-time RT-PCR test intended for the qualitative detection of nucleic acid from SARS-CoV-2 in a nasopharyngeal swab specimen collected from individuals suspected of COVID-19 by their healthcare provider. This test has not been Food and Drug Administration (FDA) cleared or approved and has been authorized by FDA under an Emergency Use Authorization (EUA). This EUA will be effective until the declaration that circumstances exist justifying the authorization of the emergency use of in vitro diagnostic tests for detection and/or diagnosis of COVID-19 is terminated under Section 564(b)(2) of the Act or the EUA is revoked under Section 564(g) of the Act. Fact Sheet for Healthcare Providers: https://www.[employer].com/Documents/Xpert%20Xpre ss%20SARS%20CoV-2/Fact%20Sheets/3023802%20SAR S-COV-2%20HEALTHCARE%20PROVIDERS%20FACT%20SHEE T.pdf Fact Sheet for Healthcare Patients: https://www.[employer].com/Documents/Xpert%20Xpre ss%20SARS%20CoV-2/Fact%20Sheets/3023801%20SAR S-COV-2%20PATIENT%20FACT%20SHEET.pdf Performing Laboratory: [address] [place] [address] Performing Organization Address City/State/Zipcode Phone Number [address] [address] CENTER CBC with platelet count + automated diff (02/12/2020 5:15 PM CDT) WBC 19.8 (H) 3.5 - 10.5 K/L [facility] RBC 5.14 3.93 - 5.22 M/L [facility] Hemoglobin 14.5 11.2 - 15.7 GM/DL [facility] Hematocrit 45.1 (H) 34.1 - 44.9 % [facility] MCV 87.7 79.4 - 94.8 fL [facility] MCH 28.2 25.6 - 32.2 pg [facility] MCHC 32.2 32.2 - 35.5 GM/DL [facility] RDW 12.6 11.7 - 14.4 % [facility] Platelets 217 150 - 450 K/CU MM [facility] MPV 10.8 9.4 - 12.3 fL [facility] nRBC 0 0 - 0 /100 WBC [facility] % Neutros 91 % [facility] % Lymphs 5 % [facility] % Monos 3 % [facility] % Eos 0 % [facility] % Baso 0 % [facility] # Neutros 18.10 (H) 1.56 - 6.13 K/L [facility] # Lymphs 0.90 (L) 1.18 - 3.74 K/L [facility] # Monos 0.62 (H) 0.24 - 0.36 K/L [facility] # Eos 0.02 (L) 0.04 - 0.36 K/L [facility] # Baso 0.05 0.01 - 0.08 K/L [facility] Immature 1 0 - 1 % [facility] Granulocytes-Relative [facility]TER Specimen Blood Performing Organization Address [facility] Phone Number [address] [address] CENTER Troponin I (02/12/2020 5:15 PM CDT) Troponin I <0.01 0.00 - 0.03 ng/mL [facility] Specimen Blood Narrative Performed At Troponin I (TnI) levels must be interpreted [facility] in the context of the presenting symptoms and the clinical findings. Elevated TnI levels indicate myocardial damage, but are not specific for ischemic heart disease. Elevated TnI levels are seen in patients with other cardiac conditions (including myocarditis and congestive heart failure), and slight TnI elevations occur in patients with other conditions, including sepsis, renal failure, acidosis, acute neurological disease, and persistent tachyarrhythmia. Delivery Stock Clerk ID - ARIES E Performing Organization Address City/[facility] Phone Number [address] [address] CENTER B-type Natriuretic Factor (BNP) (02/12/2020 5:15 PM CDT) BNP 18 0 - 100 pg/mL [facility] Specimen Blood Narrative Performed At Delivery Stock Clerk ID - ARIES E [facility] Performing Organization Address City/[facility]/Zipcode Phone Number [address] [address] CENTER Basic Metabolic Panel (02/12/2020 5:15 PM CDT) Sodium 139 136 - 145 meq/L [facility] Potassium 3.8 3.5 - 5.1 meq/L [facility] Chloride 106 98 - 107 meq/L [facility] CO2 25 22 - 29 meq/L [facility] BUN 10 7 - 21 mg/dL [facility] Creatinine 0.70 0.57 - 1.25 mg/dL [facility] Glucose 184 (H) 70 - 105 mg/dL [facility] Calcium 8.8 8.4 - 10.2 mg/dL [facility] EGFR 107Comment: INSUFFICIENT mL/min/1.73 sq m [facility] CLINICAL DATA TO CALCULATE [facility] ESTIMATED GFR. Specimen Blood Narrative Performed At Delivery Stock Clerk ID - ARIES E [facility] Performing Organization Address City/State/Zipcode Phone Number [facility] [address] [place] [address] CENTER ECG 12 lead (02/12/2020 4:18 PM CDT) Specimen Narrative Performed At Ventricular Rate 94 BPM GE MUSE Atrial Rate 94 BPM P-R Interval 124 ms QRS Duration 72 ms Q-T Interval 378 ms QTC Calculation(Bazett) 472 ms P Rosebud 5 degrees R Rosebud -1 degrees T Rosebud 23 degrees Normal sinus rhythm Normal ECG No previous ECGs available Confirmed by MD VIVAR JOSEPH P ([id number]) on 0 6:29:32 AM Procedure Note Interface, External Ris In - 02/13/2020 6:29 AM CDT Ventricular Rate 94 BPM Atrial Rate 94 BPM P-R Interval 124 ms QRS Duration 72 ms Q-T Interval 378 ms QTC Calculation(Bazett) 472 ms P Rosebud 5 degrees R Rosebud -1 degrees T Rosebud 23 degrees Normal sinus rhythm Normal ECG No previous ECGs available Confirmed by MD VIVAR JOSEPH P ([id number]) on 02/13/2020 6:29:32 AM Performing Organization Address City/State/Zipcode Phone Number [employer] after 02/16/2019 Insurance Payer Benefit Plan / Group Subscriber ID Type Phone A ddress CDCREVIEW CDCREVIEW xxxxxxxx [address] [place], [place] [phone] (Home) [place] [phone]
--- OUTSIDE RECORDS SUMMARY | 2020-02-17 17:29 | XMS REPORT | Summary of Care ---
:1970 Author Organization [facility] [place] Address [address] [place] [address]- phone Encounter HQ Jorge(FIN) [phone] Date(s): 02/07/20 - 02/07/20 [facility] [place] [address] [place] [address]- [phone] Discharge Disposition: Home or Self Care Attending Physician: Ruy Mac MD Referring Physician: Ruy Mac MD Vital Signs Most recent to oldest [Reference Range]: 1 Height 167.64 cm (02/07/20 9:50 AM) Blood Pressure [90-140/60-90 mmHg] 142/99 mmHg *HI* (02/07/20 9:50 AM) Respiratory Rate [14-20 BRMIN] 16 BRMIN (02/07/20 9:50 AM) Peripheral Pulse Rate [60-100 bpm] 80 bpm (02/07/20 9:50 AM) Weight 108.182 kg (02/07/20 9:50 AM) Body Mass Index 38.49 m2 (02/07/20 9:50 AM) Problem List Condition Effective Dates Status Health Status Informant Diabetes(Confirmed) Active Diverticulitis(Confirmed) Resolved Dysarthria(Confirmed) Active Dyslipidemia1 01/17/14 Active Excessive thirst2 05/10/14 Resolved Headache(Confirmed) Active Hypercholesterolemia(Confirmed) Active Hypertensive disorder3 01/17/14 Active Lumbar radiculopathy(Confirmed) Active 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 Depression(Confirmed) Active Myocardial infarct(Confirmed) Active Obesity5 01/17/14 Active Paresthesia(Confirmed) Active Tear of medial meniscus of knee6 08/23/14 Resolved Temporomandibular 08/23/14 Resolved [id number]-[id number]-yrzxntxuziq syndrome7 Urinary tract infectious disease8 03/29/14 Resolved [...] Reactions, Alerts No Known Medication Allergies Medications Abilify 5 mg oral tablet 5 mg = 1 tab, PO, Daily, 0 Refill(s) Start Date: 02/07/20 Status: OrderedLyrica 75 mg oral capsule 75 mg = 1 cap, PO, Daily, # 30 cap, 3 Refill(s), other Start Date: 02/07/20 Stop Date: 06/06/20 Status: Ordered Results No data available for this section Immunizations No data available for this section Procedures No data available for this section Social History Social History Type Response Employment/School Status: Employed. Work/Scho ol description: [employer]. Smoking Status Current every day smoker; Ty pe: Cigarettes; Exposure to Tobacco Smoke Unable to obtain; Cigarette Smoking Last 365 Days Yes; Reg Smoking Cessation Counseling No entered on: 02/07/20 Assessment and Plan No data available for this section
--- OUTSIDE RECORDS SUMMARY | 2020-02-17 17:29 | XMS REPORT | Continuity of Care Document ---
:1970 Author Organization [employer] Care Team Providers Name Role Phone Avnera Unavailable Un available Problems Problem Status Onset Classification Date Comments Sourc e Date Reported Urinary tract 03/02/2017 infection, site not 017 [place] specified ABD PAIN Active [facility] 017 [place] TMJ SYNDROME Active Condition 08/23/2014 014 [facility] MEDIAL MENISCUS TEAR, Active Condition 08/23/2014 LEFT 014 [facility] Tear of medial Resolved Problem 02/09/2020 Data meniscus of knee 014 migrated Med ical (disorder) from [facility],Mis Centricity jamee on 02/18/15. Neuro, [facility] [place] Temporomandibular Resolved Problem 02/09/2020 Data M H [id number] 014 migrate d Medical syndrome (disorder) from [facility],Mis Centricity jamee on 02/18/15. Neuro [facility] [place] POLYDIPSIA Active Condition 08/23/2014 014 [facility] Excessive thirst Resolved Problem 02/09/2020 Data (finding) 014 migrated Medical from [facility],Mis Centricity jamee on 02/18/15. Neuro [facility] [place] RHINITIS Inactive Condition 08/23/2014 014 [facility] UTI Inactive Condition 08/23/2014 014 [facility] Urinary tract Resolved Problem 02/09/2020 Data infectious disease 014 migrated M edical (disorder) from [facility],Mis Centricity jamee on 04/04/15. Neuro [place] [place] HYPERTENSION Active Condition 08/23/2014 014 [facility] DYSLIPIDEMIA Active Condition 08/23/2014 014 [facility] ANXIETY DEPRESSION Active Condition 08/23/2014 014 [facility] OBESITY Active Condition 08/23/2014 014 [facility] PHYSICAL EXAMINATION Active Condition 08/23/2014 014 [facility] Dyslipidemia Active Problem 02/09/2020 Data MH (disorder) 014 migrated Medical from Group,Mis Centricity jamee on 02/18/15. Neuro,[facility], [facility] [place] Hypertensive disorder, Active Problem 02/09/2020 Data MH systemic arterial 014 migrated Me dical (disorder) from Group,Mis Centricity jamee on 02/18/15. Neuro,[facility], [facility] [place] Mixed anxiety and Active Problem 02/09/2020 Data M H depressive disorder 014 migrated Medical (disorder) from [facility],Mis Centricity jamee on 02/18/15. Neuro,[facility], [facility] [place] Obesity (disorder) Active Problem 02/09/2020 Data 014 migrated Medical from Group,Mis Centricity jamee on 02/18/15. Neuro,[facility] [place] Diabetes mellitus Active Problem 02/09/2020 M H (disorder) Medical Group,Mis jamee Neuro, [facility] [place] Diverticulitis Resolved Problem 02/09/2020 MH (disorder) Medical Group,Mis jamee Neuro,[facility] [place] Headache (finding) Active Problem 02/09/2020 Medical Group,Mis j[facility]e Neuro, [facility] [place] Hypercholesterolemia Active Problem 02/09/2020 (disorder) Medical Group,Mis j[facility]e Neuro,[facility] [place] Lumbar radiculopathy Active Problem 02/09/2020 MH (disorder) Medical Group,Mis j[facility] Neuro, [facility] [place] Depressive disorder Active Problem 02/09/2020 (disorder) Medical Group,Mis jamee Neuro,[facility] [place] Myocardial infarction Active Problem 02/09/2020 MH (disorder) Medical Group,Mis j[facility] Neuro, [facility] [place] Dysarthria (finding) Active Problem 02/09/2020 [facility] Paresthesia (finding) Active Problem 02/09/2020 [facility] Medications Medication Details Route Status Patient Ordering Order Source Instructions Provider Date pregabalin 75 MG Oral 75 mg = 1 Active 02/06/ [facility] Capsule [Lyrica] cap, PO, 2019 [facility] Daily, # 30 cap, 3 Refill(s) , other aripiprazole 5 MG 5 mg = 1 Active 02/06/ [facility] Oral Tablet [Abilify] tab, PO, 2019 N euro Daily, 0 Refill(s) Diclofenac Sodium 2 gm, Active che r 0.01 MG/MG Topical TOP, BID, 2019 Roxy ro Gel [Voltaren] 0 Refill(s) Repatha 140 mg, Active [facility] SUB-Q, 2019 [facility] qMonth, 0 Refill(s) meloxicam 15 mg, Active [facility] PO, 2019 [facility] Daily, 0 Refill(s) Methocarbamol 0 Active [facility] Refill(s) 2019 Neuro NovoLog 25 unit, Active [facility] SUB-Q, 2019 Neuro TID-Befor e Meals, 0 Refill(s) pregabalin 75 MG Oral 75 mg = 1 Active 12/04/ [facility] Capsule [Lyrica] cap, PO, 2019 Neuro BID, # 60 cap, 3 Refill(s) , Pharmacy: [id number] repaglinide 2 mg oral 4 mg = [...] MG Oral 75 mg = 1 Active 08/08/ [facility] Capsule [Lyrica] cap, PO, 2018 [facility] BID, # 60 cap, 3 Refill(s) pregabalin 75 MG Oral 75 mg = 1 Active 05/18/ [facility] Capsule [Lyrica] cap, PO, 2018 Neuro BID, # 60 cap, 2 Refill(s) ezetimibe 10 mg = 1 Active 04/03/ [facility] tab, PO, 2018 [facility] Daily, # 30 tab, 0 Refill(s) Nitroglycerin See Active Instructi 2019 Neuro ons, 5 mg PO Daily, 0 Refill(s) Lipitor 80 mg, Active PO, 2019 [facility] Daily, 0 Refill(s) Vascepa 1g, PO, Active Daily, 0 2018 Neuro Refill(s) Sertraline 100 mg, Active PO, 2019 [facility] Daily, 0 Refill(s) clopidogrel 75 mg, Active cher PO, 2019 [facility] Daily, 0 Refill(s) Hydrochlorothiazide 25 mg, Active c her PO, BID, 2018 Neuro 0 Refill(s) Norvasc 5 mg, PO, Active Daily, 0 2018 Neuro Refill(s) Metformin 500 mg, Active PO, BID, 2019 Neuro 0 Refill(s) tramadol 50 mg = 1 Active hydrochloride 50 MG tab, PO, 2016 [place] Oral Tablet Q6H, PRN Pain, X 3 day, # 12 tab, 0 Refill(s) 24 HR Ciprofloxacin 500 mg = Active 500 MG Extended 1 tab, 2017 [place] Release Tablet PO, [Cipro] Daily, X 5 day, # 5 tab, 0 Refill(s) Benadryl 50 mg, Inactive Route: 2017 [place] IVP, ONCE, Dosing Weight 110.455, kg, Priority: STAT, Start date: 02/27/17 19:30:00 CDT, Stop date: 02/27/17 19:30:00 CDT Morphine 4 mg, Inactive Route: 2016 [place] IVP, ONCE, Dosing Weight 110.455, kg, Priority: STAT, Start date: 02/27/17 18:55:00 CDT, Stop date: 02/27/17 18:55:00 CDT Zofran 4 mg, Inactive Route: 2016 [place] IVP, Drug form: INJ, ONCE, Dosing Weight 110.455, kg, Priority: STAT, Start date: 02/27/17 18:55:00 CDT, Stop date: 02/27/17 18:55:00 CDT Saline Flush 0.9% Notes: Inactive (Same as: 2016 [place] BD Posiflush ) AMLODIPINE one daily Active BESY-BENAZEPRIL HCL 2013 Medi johnny 10-40 MG [facility] DYAZIDE 37.5-25 MG one daily Active [facility] 2013 [facility] AMLODIPINE one daily Active BESY-BENAZEPRIL [...] PANEL eGFR 95 02/27 Result Comment: The [place] eGFR is calculated using the CKD-EPI formula. [...] PANEL ASPARTATE 13 0 - 37 02/27 [place] CHEM PANEL BUN 10 7 - 22 02/27 [place] CHEM PANEL Creatinine 0.74 0.50 - 02/27 Lvl 1.40 [place] CHEM PANEL ALANINE 28 0 - 65 02/27 AMINO [place] ASE CHEM PANEL Albumin Lvl 3.6 3.5 - 5.0 02/27 [place] CHEM PANEL Alk Phos 81 39 - 136 02/27 [place] CHEM PANEL Glucose Lvl 123 70 - 99 02/27 [place] CHEM PANEL Bili Total 0.3 0.2 - 1.3 02/27 [place] CHEM PANEL Sodium Lvl 143 135 - 145 02/27 [place] CHEM PANEL Total Protein 7.9 6.4 - 8.4 02/27 [place] CHEM PANEL Calcium Lvl 8.9 8.5 - 10.5 02/27 [place] CHEM PANEL Chloride Lvl 107 95 - 109 02/27 [place] CHEM PANEL Potassium Lvl 3.9 3.5 - 5.1 02/27 [place] CHEM PANEL CO2 29 24 - 32 02/27 [place] CHEM PANEL A/G Ratio 0.8 0.7 - 1.6 02/27 [place] CHEM PANEL AGAP 10.9 10.0 - 02/27 MH 20.0 [place] CHEM PANEL Globulin 4.3 2.7 - 4.2 02/27 [place] CHEM PANEL B/C Ratio 14 6 - 25 02/27 [place] CHEM PANEL Lipase Lvl 157 73 - 393 02/27 [place] ENDOCRINOLO hCG Tot 1 02/27 [place] HEMATOLOGY Segs 64.7 45.0 - 02/27 MH 75.0 [place] HEMATOLOGY Lymphocytes # 2.9 1.0 - 5.5 02/27 [place] HEMATOLOGY Basophils # 0.1 0.0 - 0.2 02/27 [place] HEMATOLOGY Eosinophils # 0.4 0.0 - 0.5 02/27 [place] HEMATOLOGY Monocytes # 0.9 0.0 - 0.8 02/27 [place] HEMATOLOGY Segs-Bands # 7.8 1.5 - 8.1 02/27 [place] HEMATOLOGY Eosinophils 3.2 0.0 - 4.0 02/27 [place] HEMATOLOGY Monocytes 7.4 2.0 - 12.0 02/27 [place] HEMATOLOGY Lymphocytes 24.1 20.0 - 02/27 MH 40.0 [place] HEMATOLOGY Basophils 0.6 0.0 - 1.0 02/27 [place] HEMATOLOGY Hct 40.4 36.0 - 02/27 MH 48.0 [place] HEMATOLOGY Hgb 13.9 12.0 - 02/27 MH 16.0 [place] HEMATOLOGY RBC X 10x6 4.61 4.20 - 02/27 MH 5.40 [place] HEMATOLOGY WBC X 10x3 12.0 3.7 - 10.4 02/27 [place] HEMATOLOGY MPV 8.1 7.4 - 10.4 02/27 [place] HEMATOLOGY RDW 13.9 11.5 - 02/27 MH 14.5 [place] HEMATOLOGY Platelet 279 133 - 450 02/27 [place] HEMATOLOGY MCHC 34.5 32.0 - 02/27 MH 36.0 [place] HEMATOLOGY MCH 30.2 27.0 - 02/27 MH 31.0 [place] HEMATOLOGY MCV 87.5 80.0 - 02/27 MH 98.0 [place] URINE AND UA Bacteria Moderate None Seen 02/27 STOOL /HPF /HPF /2016 [place] URINE AND UA Sq Epi Few /LPF Few /LPF 02/27 STOOL /2016 [place] URINE AND UA WBC 11-20 None Seen 02/27 STOOL /HPF /HPF /2016 [place] URINE AND UA RBC 21-50 0 - 2 02/27 STOOL /HPF /2016 [place] URINE AND UA Nitrite See Note Negative 02/27 [facility] (02/27/17 5:29 PM) /2016 [place] URINE AND UA Leuk Est Moderate Negative 02/27 STOOL *ABN* /2016 [place] (02/27/17 5:29 PM) URINE AND UA 4.0 0.1 - 1.0 02/27 STOOL Urobilinogen /2016 [place] URINE AND UA Glucose See Note 1 Negative 02/27 Result STOOL (02/27/17 5:29 PM) /2016 Comment: Patricia and Unable to determine due to interference from color of urine.
17:57 cg URINE AND UA Ketones Negative Negative 02/27 STOOL *NA* /2016 [place] (02/27/17 5:29 PM) URINE AND UA Bili See Note Negative 02/27 STOOL (02/27/17 5:29 PM) /2016 [place] URINE AND UA Blood Large Negative 02/27 STOOL *ABN* [place] (02/27/17 5:29 PM) URINE AND UA Protein >=300 Negative 02/27 STOOL mg/dL mg/dL [place] URINE AND UA Turbidity Slight Cloudy Clear 02/27 STOOL (02/27/17 5:29 PM) /2016 [place] URINE AND UA Spec Grav >=1.030 <=1.030 02/27 STOOL *ABN* [place] (02/27/17 5:29 PM) URINE AND UA pH 5.5 5.0 - 8.0 02/27 STOOL /2016 [place] URINE AND UA Color [place] Yellow 02/27 STOOL *ABN* [place] (02/27/17 5:29 PM) URINE CHEM U Preg Negative Negative 02/27 (02/27/17 5:29 PM) [place] Chemistry HGBA1C 5.5 - 5.6 [...] Group Chemistry TSH 1.680 0.360 - 01/17 3. [facility] Chemistry CHOLESTEROL 271 - 199 [...] Group Chemistry TSH 1.680 0.360 - 01/17 3.74 [facility] Hematology HGB 14.9 12.0 - 01/17 16.0 [facility] Hematology HCT 43.8 36.0 - 01/17 48.0 /2013 [facility] Hematology PLATELETS 251 K/CMM 133 - 450 01/17 Medical [facility] Hematology HGB 14.9 12.0 - 01/17 16.0 /2013 [facility] Hematology HCT 43.8 36.0 - 01/17 48.0 /2013 Medical [facility] Hematology PLATELETS 251 K/CMM 133 - 450 01/17 [facility] Application Integrator PAP SMEAR Complete 02/17 [facility] Application Integrator PAP SMEAR Complete 02/17 [facility] Group Pathology PAP SMEAR Complete 02/17 [facility] Pathology PAP SMEAR Complete 02/17 [facility] Pathology Reports No Data Provided for This Section Diagnostic Reports Report Value Date Source Abd Pancreatic Abd Pancreatic Protocol w/wo contrast CT 10/30/2019 8:41 [facility] [employer] 10/30/2019 [facility] [place] Protocol w/wo contrast INDICATION: - hx of pancrea titis in Nov, admitted to [facility], cont to have upper abd pain, radiating [...] CT abdomen and pelvis with contrast. 02/27/2017 [facility] contrast only CT HISTORY: Left lower quadrant [...] Value Date Comments Source Systolic (mm Hg) 142 02/07/2020 [facility] Roxy ro Diastolic (mm Hg) 99 02/07/2020 [facility] Ne uro Heart Rate 80 02/07/2020 [facility] Neuro Respitory Rate 16 02/07/2020 [facility] Neuro Height 167.64 cm 02/07/2020 [facility] Neuro Weight 108.182 02/07/2020 [facility] Neuro BMI Calculated 38.49 02/07/2020 [facility] Neuro Systolic (mm Hg) 132 12/05/2019 [facility] Roxy ro Diastolic (mm Hg) 77 12/05/2019 [facility] Ne uro Heart Rate 85 12/05/2019 [facility] Neuro Respitory Rate 16 12/05/2019 [facility] Neuro Height 167.64 cm 12/05/2019 [facility] Neuro Weight 111.818 12/05/2019 [facility] Neuro BMI Calculated 39.79 12/05/2019 [facility] Neuro Systolic (mm Hg) 137 10/12/2019 [facility] Group Diastolic (mm Hg) 83 10/12/2019 [facility] Heart Rate 72 10/12/2019 [facility] Height 167.64 cm 10/12/2019 [facility] p Weight 110.511 10/12/2019 [facility] Gr[facility] p BMI Calculated 39.32 10/12/2019 Medical Gr oup Systolic (mm Hg) 120 08/08/2019 [facility] Roxy ro Diastolic (mm Hg) 63 08/08/2019 [facility] Ne uro Heart Rate 77 08/08/2019 [facility] Respitory Rate 16 08/08/2019 [facility] Height 167.64 cm 08/08/2019 [facility] Weight 112.273 08/08/2019 [facility] BMI Calculated 39.95 08/08/2019 [facility] Systolic (mm Hg) 122 06/27/2019 [facility] Roxy ro Diastolic (mm Hg) 74 06/27/2019 [facility] Ne uro Heart Rate 79 06/27/2019 [facility] Respitory Rate 16 06/27/2019 [facility] Height 167.64 cm 06/27/2019 [facility] Weight 118.182 06/27/2019 [facility] BMI Calculated 42.05 06/27/2019 [facility] [...] Ne uro Systolic (mm Hg) 133 02/28/2017 [facility] [place] Diastolic (mm Hg) 63 02/28/2017 [place] Respitory Rate 18 02/28/2017 [place] Temperature Oral (F) 98 F 02/28/2017 [place] Heart Rate 82 02/28/2017 [facility] [place] Systolic (mm Hg) 142 02/28/2017 [facility] [place] Diastolic (mm Hg) 70 02/28/2017 [place] Heart Rate 122 02/27/2017 MH [place] Systolic (mm Hg) 128 02/27/2017 [facility] [place] Diastolic (mm Hg) 85 02/27/2017 [place] Temperature Oral (F) 98.6 F 02/27/2017 [facility] Respitory Rate 18 02/27/2017 [facility] Height 167.64 cm 02/27/2017 [facility] BMI Calculated 39.3 02/27/2017 [facility] Weight 110.455 02/27/2017 [facility] Height 65.5 08/23/2014 [facility] Gr[facility] p Weight [...] Provider Date Date Visit [facility] Report [id number] Samson 01/17 01/17 Srini 6980 Medical Medical [facility] Group [facility] Office [id number] Samson 03/29 03/29 [place] Visit 1590 Karen Medical Medical MD Group Group [facility] [id number] Samson 05/10 05/10 [place] Visit 5240 2014 Medical Medical MD [facility] Group [facility] Lab Report [id number] Samson 05/10 05/10 [facility], Medical Medical MD Group Group [facility] Office [id number] Samson 08/23 08/23 [place] Visit 3330 [place], Medical Medical MD Group Group [facility] Emergency [id number] Spike 02/27 02/28 Srini Wenceslao /2016 [facility] MNA Outpatient [id number] Ruy 04/03 04/04 [facility] Kre /2018 [facility] [place] Out[facility] [id number] Ruy 05/18 Active [facility] Kre [facility]ini MNA Outpatient [id number] Ruy 05/18 05/19 [facility] [place] Out[facility] [id number] Ruy 06/27 Active [facility] Kre [place] MNA Outpatient [id number] Ruy 06/27 06/28 [facility] [place] Outpatient [id number] Ruy 08/08 Active [facility] Kre [place] MNA Outpatient [id number] Ruy 08/08 08/09 [facility] [place] Out[facility] [id number] Nadim 10/12 Active [facility] Therese Srini [facility] Outpatient [id number] Nadim 10/12 10/13 Gastroenter Therese /2019 Medic al [facility] Between [id number] 10/13 10/14 Gastroenter Visit /2019 Medic al ology [facility] Outpt Diag [id number] Nadim 10/30 10/31 [facility] [place] Outpatient [id number] Ruy 12/04 Active [facility] Kre [place] MNA Outpatient [id number] Ruy 12/04 12/05 [facility] Kre /2019 Neuro [place] Outpatient [id number] Ruy 01/09 Active [facility] Kre Srini MNA Outpatient [id number] Ruy 01/09 01/10 [facility] Kre /2019 Neuro [place] Outpatient [id number] Ruy 02/06 Active [facility] Krell /2019 Srini MNA Outpatient [id number] Ruy 02/06 02/07 [facility]2019 [facility] [place] Out[facility] [id number] Ruy 04/02 Active [facility] Krell /2020 [place] Outpatient [id number] Ruy 05/23 Active [facility] Krell /2020 [facility] Procedures Procedure Code Date Perfomer Comments Source smoking/tobacco 14 01/17/2014 DONE Medica l cessation, patient Group education and counseling mammogram 40611 04/19/2013 [facility] vaginal Pap smear 11340 02/17/2013 Complete [facility] johnny results Group Assessment and Plan No Data Provided for This Section Plan of Care No Data Provided for This Section Social History Social History Date Source Social History TypeResponse 04/03/2019 [facility] Employment/School Status: Employed. Work/School description: [employer]. Smoking Status Current every day smoker; Type: Cigarett es; Exposure to Tobacco Smoke Unable to obtain; Cigarette Smoking Last 365 Days Yes; Reg Smoking Cessation Counseling No entered on: 02/07/20 Social History TypeResponse 04/03/2019 Lisa G ariel Employment/School Status: Employed. Work/School description: [employer]. Smoking Status Current every day smoker; Lives with chau eone who smokes; Cigarette Smoking Last 365 Days Yes; Reg Smoking Cessation Counseling Yes entered on: 10/12/19 Social History TypeResponse 04/03/2019 ROCAEL Morris Employment/School Status: Employed. Work/School description: [employer]. Smoking Status Current every day smoker; Lives [...]
--- OUTSIDE RECORDS SUMMARY | 2020-02-17 17:32 | XMS REPORT ---
:1970 Author Organization [facility] t Address [address] [place] [id number] Care Team Providers Name Role Phone Chris WATSON Primary Care Physician KARIN KERN Attending Clinician Unavailable Valentín Mac Attending Clinician Jorge Saleh Attending Clinician Jorge A Billy Attending Clinician Problems Condition Condition Condition Status Onset Resolution Last Treating Co mments Source Name Details Category Date Date Treatment Clinician Date ABD PAIN Diagnosis Active 2017-02-27 M emoria 02-27 17:40:00 l ABD PAIN 00:00: Juan F n 00 Active 02/27/2017 [facility] TMJ Condition Active 2013-092014-08-23 SYNDROME 2-05 10:51:01 Medica l TMJ 00:00: Group SYNDROME 00 Active 08/23/2014 Condition 4 Medical Group MEDIAL Condition Active 2013-092014-08-23 MENISCUS 2-05 10:51:01 Medica l TEAR, LEFT MEDIAL 00:00: Grou p MENISCUS 00 TEAR, LEFT Active 08/23/2014 Condition 4 Medical Group POLYDIPSIA Condition Active 2014-08-23 MH 05-10 10:51:01 Medical 00:00: Group POLYDIPSIA 00 Active 05/10/2014 Condition 4 Medical Group HYPERTENSI Condition Active 2014-08-23 ON 01-17 10:51:01 Medical 00:00: Group HYPERTENSI 00 ON Active 4 Condition 08/23/2014 Medical Group DYSLIPIDEM Condition Active 2014-08-23 MH [place] - 10:51:01 Medical 00:00: Group DYSLIPIDEM 00 IA Active 4 Condition 08/23/2014 Medical Group ANXIETY Condition Active 2014-08-23 DEPRESSION 5- 10:51:01 Medi johnny ANXIETY 00:00: Group DEPRESSION 00 Active 01/17/2014 Condition 4 Medical Group OBESITY Condition Active 2014-08-23 MH 5- 10:51:01 Medical OBESITY 00:00: Group 00 Active 01/17/2014 Condition 4 Medical Group PHYSICAL Condition Active 2014-08-23 M H EXAMINATIO 01-17 10:51:01 Medi johnny N PHYSICAL 00:00: Group EXAMINATIO 00 N Active 01/17/2014 Condition 4 Medical Group Dyslipidem Problem Active 2020-02-09 M H ia 01-17 23:58:52 Medical (disorder) 00:00: Group, Dyslipidem 00 Mische r ia Neuro, (disorder) MH [place], MH Active OPID [place] 01/17/2014 Problem 02/09/2020 Data migrated from [employer] on 02/18/15. Medical Group,Mis her Neuro,MH [place],M H OPID [place] Hypertensi Problem Active 2020-02-09 M H ve 01-17 23:58:52 Medical disorder, 00:00: Group, systemic Hypertensi 00 Misc her arterial ve Neuro, (disorder) disorder, systemic [place] arterial d, MH (disorder) OPID [place] Active 01/17/2014 Problem 02/09/2020 Data migrated from [employer] on 02/18/15. Medical Group,Misc her Neuro,MH [place],M H OPID [place] Mixed Problem Active 2020-02-09 MH anxiety 01-17 23:58:52 Medical and Mixed 00:00: Group, depressive anxiety 00 Misch er disorder and Neuro, (disorder) depressive MH disorder [place] (disorder) d, MH OPID [place] 01/17/2014 Problem 02/09/2020 Data migrated from [employer] on 02/18/15. Medical Group,[facility] her Neuro,MH [place],M H OPID [place] Obesity Problem Active 2014-0 2020-02-09 MH (disorder) 01-17 23:58:52 Medi johnny Obesity 00:00: Group, (disorder) 00 Mische r Neuro, Active [place] d, OPID 01/17/2014 [place] Problem 02/09/2020 Data migrated from [employer] on 02/18/15. Medical Group,[facility] her Neuro, [place],M H OPID [place] Diabetes Problem Active 2020-02-09 mellitus 23:58:52 Medica l (disorder) Diabetes Gr oup, mellitus Mischer (disorder) Neuro, OPID [place] Problem 02/09/2020 Medical Group,[facility] her Neuro, OPID [place] Diverticul Problem Resolve 2020-02-09 itis d 23:58:52 Medical (disorder) Group, Diverticul Mische r itis Neuro, (disorder) Chalino galvan, Resolved OPID [place] Problem 02/09/2020 Medical Group,[facility] her Neuro, [place],M H OPID [place] Headache Problem Active 2020-02-09 (finding) 23:58:52 Medic al Headache Group, (finding) Mischer Neuro, OPID Active [place] Problem 02/09/2020 Medical Group,[facility] her Neuro, OPID [place] Hyperchole Problem Active 2020-02-09 M H sterolemia 23:58:52 Medi johnny (disorder) Group, Hyperchole Mische r sterolemia Neuro, (disorder) Chalino galvan, Active OPID [place] Problem 02/09/2020 Medical Group,[facility] her Neuro, [place],M H OPID [place] Lumbar Problem Active 2020-02-09 radiculopa 23:58:52 Medi johnny thy Lumbar Group, (disorder) radiculopa Mi lester thy Neuro, (disorder) OPI D [place] Active Problem 02/09/2020 Medical Group,[facility] her Neuro, OPID [place] Depressive Problem Active 2020-02-09 M H disorder 23:58:52 Medica l (disorder) Group, Depressive Mische r disorder Neuro, (disorder) Chalino galvan, Active OPID [place] Problem 02/09/2020 Medical Group,Mis her Neuro,MH [place],M H OPID [place] Myocardial Problem Active 2020-02-09 M H infarction 23:58:52 Medi johnny (disorder) Group, Myocardial Mische r infarction Neuro, (disorder) OPI D [place] Active Problem 02/09/2020 Medical Group,Mis her Neuro,MH OPID [place] Dysarthria Problem Active 2020-02-09 M ischer (finding) 23:58:52 Neuro Dysarthria (finding) Active Problem 02/09/2020 [facility] Neuro Paresthesi Problem Active 2020-02-09 M ischer a 23:58:52 Neuro (finding) Paresthesi a (finding) Active Problem 02/09/2020 [facility] Neuro Urinary Problem 2016-2017-03-02 2017-03-02 tract 02-27 00:42:19 00:42:19 [place] n infection, Urinary 05:00: d site not tract 00 specified infection, site not specified 02/27/2017 03/02/2017 [place] Allergies, Adverse Reactions, Alerts Allergy Allergy Status Severity Reaction(s) Onset Inactive Treating Comm ents Source Name Type Date Date Clinician Iodine Propensi Active David And ty to 04-06 Methodi Iodide adverse 00:00: st Containi reaction 00 ng s to Products drug No Known No Known Active Memori a Medicati Medicati l on on Srini Allergie Allergie [facility] e s s [facility]osp[facility] l Family History Family Member Diagnosis Comments Start Date Stop Date Source Natural brother Cancer [facility] ethodist Natural [facility] Y[facility] Natural father Hypertension [facility] Natural mother Hypertension [facility] Social History Social Habit Start Date Stop Date Quantity Comments Source Sex Assigned At [facility] ethodist Social History 2019-04-03 2019-04-[address] [facility] valerie 18:52:55 18:52:55 [facility] Alcohol intake 2017-12-19 2017-12-19 Current [facility] thodist 00:00:00 00:00:00 non-drinker of alcohol (finding) Smoking Status Start Date Stop Date Source Social History 2017-02-27 23:48:32 [facility] Medications Ordered Filled Start Stop Current Ordering Indication Dosage Frequency Signature Comments Components Source Medication Medication Date Date Medication? Clinician (SIG) Name Name pregabalin 2020-0 Yes 75 mg = 1 Mi lester 75 MG Oral 5-21 cap, PO, Neuro Capsule 15:03: Daily, # [Lyrica] 00 30 cap, 3 Refill(s), other aripiprazol 2020-0 Yes 5 mg = 1 Mi lesetr e 5 MG Oral 5-21 tab, PO, Neur o Tablet 14:52: Daily, 0 [Abilify] 00 Refill(s) Diclofenac 2020-0 Yes 2 gm, TOP, M ischer Sodium 0.01 4-23 BID, 0 Neuro MG/MG 14:28: Refill(s) Topical Gel 00 [Voltaren] Repatha 2020-0 Yes 140 mg, Mischer 4-23 SUB-Q, Neuro 14:28: qMonth, 0 00 Refill(s) meloxicam 2020-0 Yes 15 mg, PO, Mi lester 4-23 Daily, 0 Neuro 14:25: Refill(s) 00 Methocarbam 2020-0 Yes 0 Mische r ol 4-23 Refill(s) Neuro 14:25: 00 NovoLog 2020-0 Yes 25 unit, Mische r 4-23 SUB-Q, Neuro 14:24: TID-Before 00 Meals, 0 Refill(s) pregabalin 2020-0 Yes 75 mg = 1 Mi lester 75 MG Oral 3-18 cap, PO, Neuro Capsule 19:33: BID, # 60 [Lyrica] 00 cap, 3 Refill(s), Pharmacy: [id number] repaglinide 2020-0 Yes 4 mg = 2 Mi lester 2 mg oral 3-18 tab, PO, Neuro tablet 19:17: TID-Before 00 Meals, 0 Refill(s) metFORMIN 2020-0 Yes 500 mg = 1 Mi lester 500 mg oral 3-18 tab, PO, Neur o tablet, 19:17: BID-Meals, extended 00 # 60 tab, release 1 Refill(s) 3 ML 2020-0 Yes SUB-Q, Mischer insulin 3-18 Daily, 0 Neuro degludec 19:17: Refill(s) 200 UNT/ML 00 Pen Injector [Tresiba] pregabalin 2018- Yes 75 mg = 1 Mi lester 75 MG Oral 1-20 cap, PO, Neuro Capsule 21:20: BID, # 60 [Lyrica] 16 cap, 3 Refill(s) pregabalin Yes 75 mg = 1 Mi lester 75 MG Oral 8-30 cap, PO, Neuro Capsule 20:43: BID, # 60 [Lyrica] 00 cap, 2 Refill(s) ezetimibe Yes 10 mg = 1 Mis jamee 7-16 tab, PO, Neuro 18:39: Daily, # 00 30 tab, 0 Refill(s) Nitroglycer Yes See Mische r in 16 Instructio Neuro 18:39: ns, 5 mg 00 PO Daily, 0 Refill(s) Lipitor Yes 80 mg, PO, Misc her 7-16 Daily, 0 Neuro 18:39: Refill(s) 00 Vascepa Yes 1g, PO, Mischer 7-16 Daily, 0 Neuro 18:39: Refill(s) 00 Sertraline Yes 100 mg, Misc her 7-16 PO, Daily, Neuro 18:39: 0 00 Refill(s) clopidogrel Yes 75 mg, PO, Mischer 7-16 Daily, 0 Neuro 18:39: Refill(s) 00 Hydrochloro Yes 25 mg, PO, Mischer thiazide 7-16 BID, 0 Neuro 18:39: Refill(s) 00 Norvasc Yes 5 mg, PO, Misch er 7-16 Daily, 0 Neuro 18:39: Refill(s) 00 Metformin Yes 500 mg, Misch er 7-16 PO, BID, 0 Neuro 18:39: Refill(s) 00 doxycycline Yes TK 1 T PO [place] (VIBRA-TABS 7-17 BID WITH Meth gris ) 100 MG 00:00: FOOD. st tablet 00 sulfamethox Yes TAKE 1 [place] azole-trime 7-14 TABLET BY Met hodi thoprim 00:00: MOUTH st (BACTRIM 00 EVERY 12 DS) 800-160 HOURS FOR mg per 10 DAYS tablet lamoTRIgine Yes 200mg QD Take 200 [place] (LaMICtal) 7-12 mg by Methodi 200 MG 00:00: mouth once st tablet 00 daily. sertraline Yes 100mg QD Take 100 [place] (ZOLOFT) 7-12 mg by Methodi 100 MG 00:00: mouth once st tablet 00 daily. ALPRAZolam 2017-0 Yes TAKE 1 [place] (NIRAVAM) 6-21 TABLET BY Metho di 0.5 MG 00:00: MOUTH ONCE st disintegrat 00 A DAY ing tablet NEEDED ciprofloxac 2017-0 Yes QD Take by Serena chase in, 6-19 mouth once Methodi mixture, 00:00: daily. st (CIPRO XR) 00 500 mg 24 hr tablet telmisartan 2017-0 Yes 80mg QD Take 80 mg M[place]on[place] (MICARDIS) 6-15 by mouth Metho di 80 MG 00:00: once st tablet 00 daily. amLODIPine 2017-0 Yes 5mg QD Take 5 mg Ho useric (NORVASC) 5 6-14 by mouth Meth gris mg tablet 00:00: once st 00 daily. atorvastati 2017-0 Yes 40mg QD Take 40 mg M[place]onnell n (LIPITOR) 6-14 by mouth Meth gris 40 MG 00:00: once st tablet 00 daily. ezetimibe 2017-0 Yes 10mg QD Take 10 mg Ho useric (ZETIA) 10 6-14 by mouth Metho di mg tablet 00:00: once st 00 daily. omeprazole 2017-0 Yes 40mg QD Take 40 mg [place] (PriLOSEC) 6-14 by mouth Metho di 40 MG 00:00: once st capsule 00 daily. tramadol 2017-0 Yes 50 mg = 1 hydrochlori 6-12 tab, PO, Pear kit de 50 MG 01:01: Q6H, PRN d Oral Tablet 00 Pain, X 3 day, # 12 tab, 0 Refill(s) 24 HR 2017- Yes 500 mg = 1 Ciprofloxac 6-12 tab, PO, Pear kit in 500 MG 01:00: Daily, X 5 d Extended 00 day, # 5 Release tab, 0 Tablet Refill(s) [Cipro] Benadryl 2016- No 50 mg, MH 6-12 Route: [place] 00:30: IVP, ONCE, d 00 Dosing Weight 110.455, kg, Priority: STAT, Start date: 02/27/17 19:30:00 CDT, Stop date: 02/27/17 19:30:00 CDT Morphine 2017-0 No 4 mg, MH 6-11 Route: [place] 23:55: IVP, ONCE, d 00 Dosing Weight 110.455, kg, Priority: STAT, Start date: 02/27/17 18:55:00 CDT, Stop date: 02/27/17 18:55:00 CDT Zofran 2016- No 4 mg, MH 6-11 Route: [place] 23:55: IVP, Drug d 00 form: INJ, ONCE, Dosing Weight 110.455, kg, Priority: STAT, Start date: 02/27/17 18:55:00 CDT, Stop date: 02/27/17 18:55:00 CDT Saline 2016- No Notes: Flush 0.9% 6-11 (Same as: Pear kit 22:13: BD d 00 Posiflush) ciprofloxac Yes TK 1 T PO [place] in HCl 6-10 BID Methodi (CIPRO) 250 00:00: st MG tablet 00 phenazopyri Yes TK 1 T PO [place] dine 6-10 TID Methodi (PYRIDIUM) 00:00: st 200 MG 00 tablet AMLODIPINE 2013-09 Yes one daily BESY-BENAZE 2-05 Medical PRIL HCL 00:00: Group 10-40 MG 00 CAPS DYAZIDE 2013-09 Yes one daily 37.5-25 MG 2-05 Medical CAPS 00:00: Group 00 AMLODIPINE Yes one daily BESY-BENAZE 8-22 Medical PRIL HCL 00:00: Group 5-40 MG 00 CAPS ATORVASTATI Yes one tablet MH N CALCIUM 7-11 every Medical 10 MG TABS 00:00: evening Grou p 00 AMLODIPINE No One tablet M H BESY-BENAZE 7-11 every Medical PRIL HCL 00:00: morning. Group 5-20 MG 00 CAPS BACTRIM DS No one bid. MH 800-160 MG 7-11 Medical TABS 00:00: Group 00 ATORVASTATI Yes one tablet MH N CALCIUM 7-11 every Medical 10 MG TABS 00:00: evening Grou p 00 DIOVAN HCT No one daily MH 160-12.5 MG 5-01 Medical TABS 00:00: Group 00 LAMICTAL Yes 1 tablet MH 150 MG TABS 5-01 daily Medical 00:00: Group 00 LEXAPRO 20 Yes 1 tablet MH MG TABS 5-01 twice day Medical 00:00: Group 00 ALPRAZOLAM Yes 1 tablet MH 0.5 MG TABS 5-01 daily PRN Med ical 00:00: Group 00 LEXAPRO 20 Yes 1 tablet MH MG TABS 5-01 twice day Medical 00:00: Group 00 ALPRAZOLAM Yes 1 tablet MH 0.5 MG TABS 5-01 daily PRN Med ical 00:00: Group 00 DIOVAN HCT No one daily MH 160-12.5 MG 5-01 Medical TABS 00:00: Group 00 Vital Signs Vital Name Observation Time Observation Value Comments Source Systolic (mm Hg) 2020-02-07 14:50:00 Misc her Neuro Diastolic (mm Hg) 2020-02-07 14:50:00 Mis jamee Neuro Heart Rate 2020-02-07 14:50:00 [facility]ischer Neuro Respitory Rate 2020-02-07 14:50:00 Mische r Neuro Height 2020-02-07 14:50:00 167.64 cm [facility]ischer Neuro Weight 2020-02-07 14:50:00 [facility] Neuro BMI Calculated 2020-02-07 14:50:00 Mische r Neuro Systolic (mm Hg) 2019-12-05 19:12:00 Misc her Neuro Diastolic (mm Hg) 2019-12-05 19:12:00 Mis jamee Neuro Heart Rate 2019-12-05 19:12:00 [facility]ischer Neuro Respitory Rate 2019-12-05 19:12:00 Mische r Neuro Height 2019-12-05 19:12:00 167.64 cm [facility]ischer Neuro Weight 2019-12-05 19:12:00 [facility]ischer Neuro BMI Calculated 2019-12-05 19:12:00 Mische r Neuro Systolic (mm Hg) 2019-10-12 17:34:00 MH M edical Group Diastolic (mm Hg) 2019-10-12 17:34:00 Medical Group Heart Rate 2019-10-12 17:34:00 MH Medic al Group Height 2019-10-12 17:34:00 167.64 cm MH Medic al Group Weight 2019-10-12 17:34:00 MH Medic al Group BMI Calculated 2019-10-12 17:34:00 MH Med ical Group Systolic (mm Hg) 2019-08-08 20:55:00 Misc her Neuro Diastolic (mm Hg) 2019-08-08 20:55:00 Mis jamee Neuro Heart Rate 2019-08-08 20:55:00 Mischer Neuro Respitory Rate 2019-08-08 20:55:00 Mische r Neuro Height 2019-08-08 20:55:00 167.64 cm Mischer Neuro Weight 2019-08-08 20:55:00 Mischer Neuro BMI Calculated 2019-08-08 20:55:00 Mische r Neuro Systolic (mm Hg) 2019-06-27 20:49:00 Misc her Neuro Diastolic (mm Hg) 2019-06-27 20:49:00 Mis jamee Neuro Heart Rate 2019-06-27 20:49:00 Mischer Neuro Respitory Rate 2019-06-27 20:49:00 Mische r Neuro Height 2019-06-27 20:49:00 167.64 cm Mischer Neuro Weight 2019-06-27 20:49:00 Mischer Neuro BMI Calculated 2019-06-27 20:49:00 Mische r Neuro Systolic (mm Hg) 2019-05-18 20:00:00 Misc her Neuro Diastolic (mm Hg) 2019-05-18 20:00:00 Mis jamee Neuro Heart Rate 2019-05-18 20:00:00 [facility]ischer Neuro Respitory Rate 2019-05-18 20:00:00 Mische r Neuro Height 2019-05-18 20:00:00 167.64 cm Mischer Neuro Weight 2019-05-18 20:00:00 Mischer Neuro BMI Calculated 2019-05-18 20:00:00 Mische r Neuro Weight 2019-04-03 18:11:00 Mischer Neuro BMI Calculated 2019-04-03 18:11:00 Mische r Neuro Height 2019-04-03 18:11:00 167.64 cm Mischer Neuro Heart Rate 2019-04-03 18:11:00 Mischer Neuro Respitory Rate 2019-04-03 18:11:00 Mische r Neuro Systolic (mm Hg) 2019-04-03 18:11:00 Misc her Neuro Diastolic (mm Hg) 2019-04-03 18:11:00 Mis jamee Neuro Systolic (mm Hg) 2017-02-28 01:20:00 MH [place] Diastolic (mm Hg) 2017-02-28 01:20:00 [place] Respitory Rate 2017-02-28 00:36:00 MH [place] Temperature Oral (F) 2017-02-28 00:36:00 98 F [facility] Heart Rate 2017-02-28 00:36:00 MH Patricia and Systolic (mm Hg) 2017-02-28 00:36:00 MH [place] Diastolic (mm Hg) 2017-02-28 00:36:00 [facility] Heart Rate 2017-02-27 22:13:00 MH [place] and Systolic (mm Hg) 2017-02-27 22:13:00 MH [place] Diastolic (mm Hg) 2017-02-27 22:13:00 [facility] Temperature Oral (F) 2017-02-27 22:13:00 98.6 F [facility] Respitory Rate 2017-02-27 22:13:00 MH [place] Height 2017-02-27 22:13:00 167.64 cm Patricia and BMI Calculated 2017-02-27 22:13:00 MH [place] Weight 2017-02-27 22:13:00 MH Patricia and Height 2014-08-23 16:51:01 Medic al Group Weight 2014-08-23 16:51:01 Medic al Group Temperature Oral (F) 2014-08-23 16:51:01 98.1 F Medical Group Heart Rate 2014-08-23 16:51:01 Medic al Group Systolic (mm Hg) 2014-08-23 16:51:01 M edical Group Diastolic (mm Hg) 2014-08-23 16:51:01 Medical Group Weight 2014-05-10 15:26:33 Medic al Group Temperature Oral (F) 2014-05-10 15:26:33 98.2 F Medical Group Heart Rate 2014-05-10 15:26:33 Medic al Group Systolic (mm Hg) 2014-05-10 15:26:33 M edical Group Diastolic (mm Hg) 2014-05-10 15:26:33 Medical Group Height 2014-05-10 15:26:33 Medic al Group Weight 2014-03-29 15:53:52 Medic al Group Temperature Oral (F) 2014-03-29 15:53:52 97.8 F Medical Group Heart Rate 2014-03-29 15:53:52 Medic al Group Systolic (mm Hg) 2014-03-29 15:53:52 M edical Group Diastolic (mm Hg) 2014-03-29 15:53:52 Medical Group Height 2014-01-17 14:43:32 Medic al Group Weight 2014-01-17 14:43:32 Medic al Group Temperature Oral (F) 2014-01-17 14:43:32 98.0 F Medical Group Heart Rate 2014-01-17 14:43:32 Medic al Group Systolic (mm Hg) 2014-01-17 14:43:32 M edical Group Diastolic (mm Hg) 2014-01-17 14:43:32 Medical Group Procedures Procedure Date / Time Performed Performing Clinician [facility] smoking/tobacco 2014-01-17 14:43:32 Medical G roup cessation, patient education and counseling mammogram 2013-04-19 15:45:41 Medical G roup vaginal Pap smear results 2013-02-17 14:53:37 Medical Group Plan of Care Planned Activity Planned Date Details Comments Source Future Scheduled 2020-04-19 INFLUENZA VACCINE [place] [facility] Test 00:00:00 [code = INFLUENZA VACCINE] Future Scheduled 2018 BREAST CANCER [facility] Test 00:00:00 SCREENING [code = BREAST CANCER SCREENING] Future Scheduled 2018 COLONOSCOPY SCREENING [facility] Yarsani Test 00:00:00 [code = COLONOSCOPY SCREENING] Future Scheduled 2018 SHINGLES VACCINES [place] [facility] Test 00:00:00 (#1) [code = SHINGLES VACCINES (#1)] Future Scheduled 1989 Screening for [facility] thodist Test 00:00:00 malignant neoplasm of cervix (procedure) [code = 117371905] Encounters Start End Encounter Admission Attending Care Care Encounter Source Date/Time Date/Time Type Type Clinicians Facility Department ID 2020-05-23 2020-05-23 Outpatient IEALT RANCHO [id number] Memoria 09:15:00 09:15:00 08 zach Milligan 2020-04-02 2020-04-02 Outpatient IEALT EASTON [id number] Memoria 13:15:00 13:15:00 05 zach Milligan 2020-02-07 2020-02-08 Outpatient MHIEALT MNA [id number] Mischer 14:30:00 04:59:59 Neurology 07 Neur o [place] 2020-02-07 2020-02-07 Outpatient PRIMO MacSCHCALE MHMISCHER [id number] 09:30:00 23:59:59 Ruy 07 Valentín 2020-02-07 2020-02-07 Outpatient MHIEALT MHIEALT [id number] Memoria 09:30:00 09:30:00 07 zach Srini 2020-01-10 2020-01-11 Outpatient MHIEALT MNA [id number] Mischer 14:15:00 04:59:59 Neurology 06 Neur o Caitlin 2020-01-10 2020-01-10 Outpatient PRIMO MacSCHCALE MHMISCHER [id number] 09:15:00 23:59:59 Ruy 06 Valentín 2020-01-10 2020-01-10 Outpatient MHIEALT MHIEALT [id number] Memoria 09:15:00 09:15:00 06 zach Milligan 2019-12-05 2019-12-06 Outpatient MHIEALT MNA [id number] Mischer 18:45:00 04:59:59 Neurology 04 Neur o Caitlin 2019-12-05 2019-12-05 Outpatient DASHA Mac MHMISCHER [id number] 13:45:00 23:59:59 Ruy 04 Valentín 2019-12-05 2019-12-05 Outpatient MHIEALT MHIEALT [id number] Memoria 13:45:00 13:45:00 04 zahc Milligan 2019-10-30 2019-10-31 Outpt Diag MHIEALT [facility] [id number] MH OPID 14:26:00 05:59:00 Services Outpatient 00 [facility] [place] 2019-10-30 2019-10-30 Outpatient Therese, [id number] 08:26:00 23:59:00 Nadim Jorge [id number] 2019-10-13 2019-10-14 Between MHIEALT MH [id number] 19:24:03 19:24:03 Visit Gastroenter 03 Me dical ology [place] 2019-10-13 2019-10-14 Outpatient MHMG MG [id number] 13:24:03 13:24:03 03 2019-10-12 2019-10-13 Outpatient MHIEALT [facility] [id number] MH 17:00:00 05:59:59 Gastroenter 00 Me dical ology [place] [facility] 2019-10-12 2019-10-12 Outpatient Therese, MHMG MG [id number] 11:00:00 23:59:59 Nadim Jorge 00 2019-10-12 2019-10-12 Outpatient MHIEALT MHIEALT [id number] Memoria 11:00:00 11:00:00 00 zach Milligan 2019-08-08 2019-08-09 Outpatient MHIEALT MNA [id number] Mischer 20:45:00 05:59:59 Neurology 03 Neur bc [place] 2019-08-08 2019-08-08 Outpatient DASHA Mac MISCHER [id number] 14:45:00 23:59:59 Ruy 03 Valentín 2019-08-08 2019-08-08 Outpatient MHIEALT MHIEALT [id number] Memoria 14:45:00 14:45:00 03 zach Milligan 2019-06-27 2019-06-28 Outpatient MHIEALT MNA [id number] Mischer 20:45:00 04:59:59 Neurology 02 Mike [place] 2019-06-27 2019-06-27 Outpatient DASHA MacSCHER [id number] 15:45:00 23:59:59 Ruy 02 Valentín 2019-06-27 2019-06-27 Outpatient MHIEALT MHIEALT [id number] Memoria 15:45:00 15:45:00 02 zach Milligan 2019-05-18 2019-05-19 Outpatient MHIEALT MNA [id number] Mischer 19:30:00 04:59:59 Neurology 01 Neur bc [place] 2019-05-18 2019-05-18 Outpatient DASHA Mac MISCHER [id number] 14:30:00 23:59:59 Ryu 01 Valentín 2019-05-18 2019-05-18 Outpatient MHIEALT MHIEALT [id number] Memoria 14:30:00 14:30:00 01 zach Milligan 2019-04-03 2019-04-04 Outpatient MHIEALT MNA [id number] Mischer 18:00:00 04:59:59 Neurology 00 Neur o [place] 2019-04-03 2019-04-03 [id number] 13:00:00 23:59:59 Ruy 00 Valentín 2017-02-27 2017-02-28 Emergency [facility] [id number] MH 22:07:00 01:28:00 Srini Samayoa [facility] 2017-02-27 2017-02-27 Outpatient Wenceslao, ZANAPL MHPL [id number] 17:07:00 20:28:00 Spike Danita Jules 2014-08-23 2014-08-23 Office [facility] [id number] MH 00:00:00 00:00:00 Visit Srini [id number] [facility] 2014-05-10 2014-05-10 Office [facility] [id number] MH 00:00:00 00:00:00 Visit Srini [id number] [facility] 2014-05-10 2014-05-10 Lab Report [facility] [id number] MH 00:00:00 00:00:00 Srini [id number] Medica l Medical Group [facility] 2014-03-29 2014-03-29 Office [facility] [id number] MH 00:00:00 00:00:00 Visit Sriin [id number] [facility]ica l [facility] 2014-01-17 2014-01-17 [facility] [id number] MH 00:00:00 00:00:00 [facility] [id number] [facility] Results Test Description Test Time Test Comments Results Result Comments Source SARS-COV2/RT-PCR ([facility]) 2020-02-12 19:30:00 Test Item Value Reference Range Interpretation Comme nts SARS-COV2/RT-PCR (test code = [id number]) Not Detected Not Detected, N egative SARS-COV-2 PERFORMING LAB (test code = [facility] [id number]) Negative results do not preclude SARS-CoV-2 infection and should not be used as the sole basis for patient management decisions. Negative results must be combined with clinical observations, patient history, and epidemiological information. A false negative result may occur if a specimen is improperly collected, transported or handled.The limit of detection for this assay is 250 copies/mL.This SARS CoV-2 test is a rapid, real-time RT-PCR test intended for the qualitative detection of nucleic acid from SARS-CoV-2 in a nasopharyngeal swab specimen collected from individuals suspected of COVID-19 by their healthcare provider.This test has not been Food and Drug [...] is revoked under Section 564(g) of the Act.Fact Sheet for Healthcare Pro viders:https://[email or web address]/Xpert%20Xpress%20SARS%20CoV-2/Fact%20Sh eets/[id number]%95GDUJ-OOC-6%20HEALTHCARE%20PROVIDERS%20FACT%20SHEET.pdfFact Sheet for Healthcare Patients:https://www.Center'd/Documents/Xpert%20Xpress%20SARS%20CoV-2/Fact%20Sheets/3023801%20SARS-COV -2%20PATIENT%20FACT%20SHEET.pdfPerforming Laboratory:[facility] KellerUn[facility], [place] [address]DWYDWJTG [id number] 18:17:00 Test Item Value Reference Range Interpretation Comments TROPONIN I (BEAKER) (test code = 397) < ng/mL 0.00-0.03 Troponin I (TnI) levels must be interpreted in the context of the presenting symptoms and the clinical findings. Elevated TnI levels indicate myocardial damage, but are not specific for ischemic heart disease. Elevated TnI levels are seen in patients with other cardiac conditions (including myocarditis and congestive heart failure), and slight TnI elevations occur in patients with other conditions, including sepsis, renal failure, acidosis, acute neurological disease, and persistent tachyarrhythmia.Youth Officer KRISTINA CHRIS EB-TYPE NATRIURETIC FACTOR (BNP)2020-02-12 18:10:00 Test Item Value Reference Range Interpretation Comments B-TYPE NATRIURETIC PEPTIDE (BEAKER) 18 pg/mL 0-100 (test code = 700) Youth Officer KRISTINA DRISCOLLASIC METABOLIC [id number] 18:07:00 Test Item Value Reference Range Interpretation Comments SODIUM (BEAKER) 139 meq/L 136-145 (test code = 381) POTASSIUM (BEAKER) 3.8 meq/L 3.5-5.1 (test code = 379) CHLORIDE (BEAKER) 106 meq/L 98-107 (test code = 382) CO2 (BEAKER) (test 25 meq/L 22-29 code = 355) BLOOD UREA NITROGEN 10 mg/dL 7-21 (BEAKER) (test code = 354) CREATININE (BEAKER) 0.70 mg/dL 0.57-1.25 (test code = 358) GLUCOSE RANDOM 184 mg/dL 70-105 H (BEAKER) (test code = 652) CALCIUM (BEAKER) 8.8 mg/dL 8.4-10.2 (test code = 697) EGFR (BEAKER) (test 107 INSUFFIC IENT CLINICAL code = 1092) mL/min/1.73 sq DATA TO CALCU LATE m ESTIMATED GFR. Youth Officer KRISTINA CHRIS ERAD, CHEST, 2 [id number] 17:35:00Reason for exam:->WHEEZINGFINAL REPORT TECHNIQUE: Frontal and lateral chest radiographs dated 02/12/2020. CLINICAL HISTORY: Wheezing COMPARISON STUDY: None FINDINGS: There are vague airspace opacities seen bilaterally. Differential diagnosis includes an infectious/inflammatory processes versus pulmonaryedema. No pleural effusion or pneumothorax. Cardiomediastinal silhouette is normal in size. No pulmonary edema. Degenerative changes are seen in the spine. IMPRESSION: Vague airspace opacities seen bilaterally. Differential diagnosis includes an infectious/inflammatory processes versus pulmonary edemaSigned: Darshana Grigsbyeport Verified Date/Time: 02/12/2020 17:35:52 Reading Location: [address] Transitional Reading Room CBC W/PLT COUNT & AUTO [id number] 17:34:00 Test Item Value Reference Range Interpretation Comments WHITE BLOOD CELL COUNT (BEAKER) 19.8 K/ L 3.5-10.5 H (test code = 775) RED BLOOD CELL COUNT (BEAKER) 5.14 M/ L 3.93-5.22 (test code = 761) HEMOGLOBIN (BEAKER) (test code = 14.5 GM/DL 11.2-15.7 410) HEMATOCRIT (BEAKER) (test code = 45.1 % 34.1-44.9 H 411) MEAN CORPUSCULAR VOLUME (BEAKER) 87.7 fL 79.4-94.8 (test code = 753) MEAN CORPUSCULAR HEMOGLOBIN 28.2 pg 25.6-32.2 (BEAKER) (test code = 751) MEAN CORPUSCULAR HEMOGLOBIN CONC 32.2 GM/DL 32.2-35.5 (BEAKER) (test code = 752) RED CELL DISTRIBUTION WIDTH 12.6 % 11.7-14.4 (BEAKER) (test code = 412) PLATELET COUNT (BEAKER) (test 217 K/CU MM 150-450 code = 756) MEAN PLATELET VOLUME (BEAKER) 10.8 fL 9.4-12.3 (test code = 754) NUCLEATED RED BLOOD CELLS 0 /100 WBC 0-0 (BEAKER) (test code = 413) NEUTROPHILS RELATIVE PERCENT 91 % (BEAKER) (test code = 429) LYMPHOCYTES RELATIVE PERCENT 5 % (BEAKER) (test code = 430) MONOCYTES RELATIVE PERCENT 3 % (BEAKER) (test code = 431) EOSINOPHILS RELATIVE PERCENT 0 % (BEAKER) (test code = 432) BASOPHILS RELATIVE PERCENT 0 % (BEAKER) (test code = 437) NEUTROPHILS ABSOLUTE COUNT 18.10 K/ L 1.56-6.13 H (BEAKER) (test code = 670) LYMPHOCYTES ABSOLUTE COUNT 0.90 K/ L 1.18-3.74 L (BEAKER) (test code = 414) MONOCYTES ABSOLUTE COUNT (BEAKER) 0.62 K/ L 0.24-0.36 H (test code = 415) EOSINOPHILS ABSOLUTE COUNT 0.02 K/ L 0.04-0.36 L (BEAKER) (test code = 416) BASOPHILS ABSOLUTE COUNT (BEAKER) 0.05 K/ L 0.01-0.08 (test code = 417) IMMATURE GRANULOCYTES-RELATIVE 1 % 0-1 PERCENT (BEAKER) (test code = 2801) CHEM [id number] 22:38:0095MH [facility]CHE[facility] CCBFC2121-35-09 22:38:0013 [facility] VFISW9908-09-19 22:38:0010 [facility]CHE[facility] YLEER4244-22-72 22:38:00 0.74MH [facility]landCHEM EFOWY7997-31-54 22:38:0028 [facility]CHEM XCLDQ1638-82-29 22:38:003.6MH [facility]CHEM JBSKL2147-96-37 22:38:0081 [facility]CHEM PANEL 2017-02-27 22:38:10366KW [facility]landCHEM BQSEZ1289-00-51 22:38:000.3MH [facility]landCHEM CYMTG4072-92-92 22:38:98865SG [facility]CHEM MKKQA4710-85-66 22:38:007.9 [facility]CHE[facility] NUXVI1910-39-86 22:38:008.9 [facility]CHE[facility] DUWKS3393-58-35 22:38:00 107 [facility]landCHEM WUVPY6265-10-21 22:38:003.9 [facility]CHE[facility] RODPD7217-47-59 22:38:0029 [facility]CHE[facility] SNDGO4120-00-13 22:38:000.8 [facility]landCHEM PANEL 2017-02-27 22:38:0010.9 [facility]CHE[facility] NETDG4673-90-00 22:38:004.[facility] MYDEP7593-04-46 22:38:0014 [facility]landCHEM QKGDJ2872-68-54 22:38:22652ILUniversity [facility] CenterZmqazvpiJVCGWQLTPGUKW3651-47-33 22:38:001MH MseunlzeENUMNYAJUY5342-89-91 22:38:0064.7 LnlkxsfpTORUKIAAUU8662-11-11 22:38:002.9 [facility]landHEMATOLOGY 2017-02-27 22:38:000.1MH MlxjymmvHAKQVLQZEQ4714-37-62 22:38:000.4[facility] RCOPAGWBDS9815-49-42 22:38:000.9[facility] CenterPiqaruguAJVAHIVSKA5972-85-75 22:38:007.8[facility] CenterLxxbnbhuHBCAVLRMJO0454-88-87 22:38:003.2MPalm [facility] HospitalHvdswtuiWOAILAAAKH6191-32-56 22:38:00 7.4[facility] CenterMjxenmizUUAGAZFGXV2331-91-36 22:38:0024.1MPalm Bay Community HospitalHnaxxhldGMMKFMBLKS0864-46-09 22:38:000.6MH RkikkjvkAFBCXQIMEH5240-29-29 22:38:0040.4[facility] CenterHEMATOLOGY 2017-02-27 22:38:0013.9[facility] CenterJvfnqdlbCXJEOZWPTM6954-65-15 22:38:004.61[facility] JPVCMCLUSC3166-57-74 22:38:0012.0[facility] CenterWgrfxgwiSFUDIGGRQJ2332-03-23 22:38:008.1MFormerly [facility]acoastDvggadsiDXKDSHRDQT8665-34-82 22:38:0013.9[facility] CenterKjuwqyhmDIBPVYNWEN4962-52-61 22:38:05986LMUniversity of [facility] Medical CenterTnanitdxXZDXBREUVW0943-05-88 22:38:0034.5[facility] CenterHEMATOLOGY 2017-02-27 22:38:00 Test Item Value Reference Range Interpretation Comments MCH (test code = MCH) 30.2 pg 27.0-31.0 [facility] CenterVehpujjqGLUVKBGCEF2702-56-64 22:38:0087.5[facility] [id number] 22:29:00See Note (02/27/17 5:29 PM)[facility] WZJSO9702-29-52 22:29:00 Moderate *ABN*(02/27/17 5:29 PM) [facility] QAPGB3843-40-93 22:29:004.0 [facility] BPNDD3807-83-70 22:29:00See Note 1(02/27/17 5:29 PM)[facility] UEPCE6751-89-33 22:29:00Negative *NA*(02/27/17 5:29 PM)[facility] NSTJR2189-43-92 22:29:00See Note (02/27/17 5:29 PM)[facility] URINE AND PSKGP4780-84-30 22:29:00Large *ABN*(02/27/17 5:29 PM)[facility] TPNET5111-76-20 22:29:00Slight Cloudy (02/27/17 5:29 PM)[facility] FYLRL9080-16-53 22:29:00>=1.030 *ABN*(02/27/17 5:29 PM)[facility] [id number] 22:29:00 Test Item Value Reference Range Interpretation Comments UA pH (test code = UA pH) 5.5 1 5.0-8.0 [facility] CPQJP7421-80-15 22:29:00Orange *ABN*(02/27/17 5:29 PM)[facility] PBJM3567-53-96 22:29:00Negative (02/27/17 5:29 PM)[facility] Gxeaduzgj5057-03-31 16:20:005.5 Medical DytlzQbpgycfom5494-41-91 16:20:01944LV Medical OpwnyZqpqbocko3023-91-99 16:20:27383EE Medical CodqyQttqqdaxg5364-02-57 16:20:0036 Medical KznmmQrvjebqfi2666-70-29 16:20:0090 Medical Group Afoddopze3598-05-80 15:30:44637ZC Medical NloxbPutpozmzp6608-26-97 15:30:59585KD Medical YrudlDnrplfkur6497-07-44 15:30:0031 Medical BrvmuYkzwyvtdk1666-15-14 15:30:00See Note mg/dL Medical IkcwxKgcglonjm7013-50-57 15:30:70672 MEQ/LM Medical RkuquNuvczibjr9433-68-12 15:30:004.6 MEQ/[facility] Medical GroupChemistry 2014-01-17 15:30:000.7 Medical UmbciRrortjzgf1435-65-96 15:30:0015 Medical JicukAgfbttdvm5605-37-97 15:30:00 Test Item Value Reference Range Interpretation Comments BUN/CREAT (test code = BUN/CREAT) 21 1 6-25 Medical EqtqmQcxyckmeu0946-29-24 15:30:004.[facility] Medical GroupChemistry 2014-01-17 15:30:009.0 Medical OaigwZqsjayfio4152-55-58 15:30:0030 Medical IeeaqSnadqhxvx7170-99-98 15:30:0012 Medical QimwnDeitwnfco9976-24-49 15:30:00 73 Medical MdbhpXyavrhaht8990-07-81 15:30:001.[facility] Medical GroupChemistry 2014-01-17 15:30:95498VD Medical CrsgpTqgsobidj0183-76-61 15:30:34562LX Medical JwjmrFyaugszpy0883-66-75 15:30:0031 Medical GiwwjWntssxmla3998-15-61 15:30:00 See Note mg/dL Medical TpjygMpblqqdye4780-18-40 15:30:83703 MEQ/[facility] Medical QdqqeWblskkfsd8484-05-19 15:30:004.6 MEQ/[facility] Medical PxdneJychztgby7849-23-57 15:30:000.[facility] Medical CvnydMeefqkgif8057-93-93 15:30:0015 Medical Group Ruawxxlal7980-39-67 15:30:00 Test Item Value Reference Range Interpretation Comments BUN/CREAT (test code = BUN/CREAT) 21 1 03-13 Medical DvcalUzapbgnzo3502-67-10 15:30:004.[facility] Medical GroupChemistry 2014-01-17 15:30:009.0 Medical PuqfnTyjjvthdw7772-34-45 15:30:0030 Medical VitrwWpulmlqfw4531-54-86 15:30:0012 Medical DlmggVvyryvjjy7652-33-10 15:30:00 [facility] Medical XgxyzYahvbdnnt6070-70-00 15:30:001.[facility] Medical GroupHematology 2014-01-17 15:30:0014.[facility] Medical AnjtwKmqadbofcq1606-29-98 15:30:0043.[facility] Medical JajvoThdlhoykkh6388-07-84 15:30:49066 K/CM[facility] Medical GroupHematology 2014-01-17 15:30:0014.9 Medical GocleHmwxaxvtdf4793-29-71 15:30:0043.[facility] Medical AgexjDdsxkciqmw2554-88-05 15:30:46557 K/CM[facility] Medical GroupOb/Hr Intern 2013-02-17 14:53:37[facility] Medical GroupOb/Qws0151-66-63 14:53:[address] QcxebVuyabuxte6156-95-78 14:53:37[address] Medical GroupPathology 2013-02-17 14:53:37Com[facility] Group
[2020-02-17] MEDS ORDERED: METHYLPREDNISOLONE 125 MG INJ ONE (19:58)
[2020-02-17] MEDS ORDERED: FAMOTIDINE 20 MG TAB ONE (19:59)
[2020-02-17 21:27] VITALS: TEMP 97.7
[2020-02-17 21:28] VITALS: O2SAT 99
[2020-02-17 21:30] VITALS: BP 110/79
--- NOTE | 2020-02-18 19:22 | EDPHYS ---
Physician Documentation [facility] Name: Kelley Ordaz Age: 49 yrs Sex: Female : 1970 Arrival Date: 02/17/2020 Time: 17:25 Bed 20 Private MD: Edvin Perez B ED Physician Lyndon Leon HPI: 02/16 19:45 This 49 yrs old Female presents to ER via Ambulatory with complaints of Rash. cp 19:45 The patient's rash thought to be caused by medication. The rash is located on the body cp diffusely. The rash can be described as erythematous. Onset: The symptoms/episode began/occurred this morning. Associated signs and symptoms: Pertinent positives: burning sensation, itching, Pertinent negatives: difficulty breathing, fever, swelling of lips, swelling of throat, swelling of tongue, vomiting. Severity of symptoms: in the emergency department the symptoms are worse. Treatment given at home: Benadryl. Patient reports she has been taking oral metronidazole and cipro for past 8 days. Rash appeared today. EMERGENCY ROOM PHYSICIAN: 18:10 LMP N/A - Uterine ablation ca1 Historical: - Allergies: 18:10 Iodine (Respiratory distress); ca1 - Home Meds: 18:10 amlodipine-olmesartan 5-40mg Oral 1 tab [Active]; aspirin 81 mg Oral chew 1 tab once ca1 daily [Active]; clonazepam 0.5 mg Oral tab [Active]; ezetimibe 10mg Oral 1 tab [Active]; Latuda 20 mg Oral tab [Active]; Lipitor 80 mg Oral tab [Active]; Lyrica 75mg Oral [Active]; meloxicam Oral once daily [Active]; metformin 500 mg Oral tab [Active]; metoprolol tartrate 25 mg Oral tab 2 times per day [Active]; metoprolol tartrate 25 mg Oral tab [Active]; Novolog PenFill 100 unit/mL subcutaneous crtg 25 unit three times a day [Active]; Plavix 75 mg Oral tab 1 tab once daily [Active]; Repatha SureClick 140 mg/mL subcutaneous pnij [Active]; Triseba SQ 60 unit [Active]; Vascepa 1 gram Oral cap [Active]; Vitamin D3 Oral [Active]; - PMHx: 18:10 CAD; Depression; Diabetes - IDDM; Diabetes - NIDDM; Diverticulitis; High Cholesterol; ca1 Hypertension; Myocardial infarction; Pancreatitis; - PSHx: 18:10 Carpal Tunnel Repair; D \T\ C; Tubal ligation; Heart stents; TURP; ca1 - Immunization history:: Adult Immunizations up to date. - Social history:: Smoking status: Patient reports the use of cigarette tobacco products, smokes one pack cigarettes per day. ROS: 19:50 Constitutional: Negative for body aches, chills, fever, poor PO intake. cp 19:50 Eyes: Negative for injury, pain, redness, and discharge. cp 19:50 ENT: Negative for ear pain, sore throat, difficulty swallowing, difficulty handling secretions. 19:50 Cardiovascular: Negative for chest pain, palpitations. 19:50 Respiratory: Negative for cough, shortness of breath, wheezing. 19:50 Abdomen/GI: Negative for abdominal pain, nausea, vomiting, and diarrhea. 19:50 Skin: Positive for rash. 19:50 Neuro: Negative for altered mental status, headache, weakness. 19:50 All other systems are negative. Exam: 20:00 Constitutional: The patient appears in no acute distress, alert, awake, cp non-diaphoretic, non-toxic, well developed, well nourished. 20:00 Head/Face: Normocephalic, atraumatic. cp 20:00 ENT: External ear(s): are unremarkable, Nose: is normal, Mouth: is normal, Posterior pharynx: Airway: no evidence of obstruction, patent, swelling, is not appreciated, erythema, is not appreciated. 20:00 Cardiovascular: Rate: normal, Rhythm: regular. 20:00 Respiratory: the patient does not display signs of respiratory distress, Respirations: normal, no use of accessory muscles, no retractions, labored breathing, is not present, Breath sounds: are clear throughout, no decreased breath sounds, no stridor, no wheezing. 20:00 Skin: rash can be described as erythematous, hives, and is diffusely located. Vital Signs: 18:05 BP 143 / 82; Pulse 87; Resp 16 S; Temp 97.7(TE); Pulse Ox 98% on R/A; Weight 107.95 kg ca1 (R); Height 5 ft. 6 in. (167.64 cm) (R); Pain 5/10; 20:01 BP 104 / 74; Pulse 85; Resp 17; Pulse Ox 99% ; rr5 21:00 BP 110 / 79; Pulse 80; Resp 16; Pulse Ox 99% ; rr5 18:05 Body Mass Index 38.41 (107.95 kg, 167.64 cm) ca1 MDM: 19:18 Patient medically screened. cp 20:53 Data reviewed: vital signs, nurses notes, and as a result, I will discharge patient. cp 20:53 Counseling: I had a detailed discussion with the patient and/or guardian regarding: the cp historical points, exam findings, and any diagnostic results supporting the discharge/admit diagnosis, to return to the emergency department if symptoms worsen or persist or if there are any questions or concerns that arise at home. Response to treatment: the patient's symptoms have mildly improved after treatment, and as a result, I will discharge patient. ED course: VSS. Recommend stopping antibiotics as those are only new medications. Will discharge to home for continued monitoring. Administered Medications: 19:57 Drug: SOLU-Medrol 125 mg Route: IM; Site: left gluteus; rr5 21:13 Follow up: Response: No adverse reaction rr5 19:57 Drug: Pepcid 20 mg Route: PO; rr5 21:12 Follow up: Response: No adverse reaction rr5 Disposition: 02/17/20 20:54 Discharged to Home. Impression: Allergy status to unspecified drugs, medicaments and biological substances status, Hives. - Condition is Stable. - Discharge Instructions: Allergies, Adult, Hives. - Prescriptions for Pepcid 20 mg Oral Tablet - take 1 tablet by ORAL route every 12 hours for 5 days; 10 tablet. Prednisone 20 mg Oral Tablet - take 2 tablet by ORAL route once daily for 5 days; 10 tablet. - Medication Reconciliation Form, Thank You Letter, Antibiotic Education, Prescription Opioid Use form. - Follow up: Private Physician; When: 1 - 2 days; Reason: Recheck today's complaints. - Problem is new. - Symptoms have improved. Addendum: 02/21/2020 19:03 Co-signature as Attending Physician, Lyndon Leon MD. lamar cooney Signatures: Lyndon Leon MD MD pkl Page, Corey, PA PA cp Roque, Raymond, RN RN rr5 Aleida Motley RN RN ca1 Corrections: (The following items were deleted from the chart) 02/16 21:13 20:54 02/17/2020 20:54 Discharged to Home. Impression: Allergy status to unspecified rr5 drugs, medicaments and biological substances status; Hives. Condition is Stable. Forms are Medication Reconciliation Form, Thank You Letter, Antibiotic Education, Prescription Opioid Use. Follow up: Private Physician; When: 1 - 2 days; Reason: Recheck today's complaints. Problem is new. Symptoms have improved. cp
--- NOTE | 2020-02-18 19:22 | ER ---
Nurse's Notes [facility] Name: Kelley Ordaz Age: 49 yrs Sex: Female : 1970 Arrival Date: 02/17/2020 Time: 17:25 Bed 20 Private MD: Edvin Perez B Diagnosis: Allergy status to unspecified drugs, medicaments and biological substances status;Hives Presentation: 02/16 18:05 Chief complaint: Patient states: Rashes from ears down to knees, more on the body that ca1 started this morning. Had Benadryl twice today and cortisone 10mg with no relief and seem to have been getting worse. Reports pain and itching. Coronavirus screen: Proceed with normal triage. Patient denies a cough. Patient denies shortness of breath or difficulty breathing. Patient denies measured and/or subjective temperature greater than 100.4F prior to today's visit. Patient denies travel on a cruise ship or to a country the [facility] currently lists as an affected area. Patient denies contact with known and/or suspected case of COVID-19. Ebola Screen: Patient negative for fever greater than or equal to 101.5 degrees Fahrenheit, and additional compatible Ebola Virus Disease symptoms Patient denies exposure to infectious person. Patient denies travel to an Ebola-affected area in the 21 days before illness onset. No symptoms or risks identified at this time. Initial Sepsis Screen: Does the patient meet any 2 criteria? No. Patient's initial sepsis screen is negative. Initial Sepsis Screen: Does the patient have a suspected source of infection? No. Patient's initial sepsis screen is negative. Risk Assessment: Do you want to hurt yourself or someone else? Patient reports no desire to harm self or others. Onset of symptoms was February 17, 2020. 18:05 Method Of Arrival: Ambulatory ca1 18:05 Acuity: DEJUAN 4 ca1 ADDRESSER: 18:10 LMP N/A - Uterine ablation ca1 Historical: - Allergies: 18:10 Iodine (Respiratory distress); ca1 - Home Meds: 18:10 amlodipine-olmesartan 5-40mg Oral 1 tab [Active]; aspirin 81 mg Oral chew 1 tab once ca1 daily [Active]; clonazepam 0.5 mg Oral tab [Active]; ezetimibe 10mg Oral 1 tab [Active]; Latuda 20 mg Oral tab [Active]; Lipitor 80 mg Oral tab [Active]; Lyrica 75mg Oral [Active]; meloxicam Oral once daily [Active]; metformin 500 mg Oral tab [Active]; metoprolol tartrate 25 mg Oral tab 2 times per day [Active]; metoprolol tartrate 25 mg Oral tab [Active]; Novolog PenFill 100 unit/mL subcutaneous crtg 25 unit three times a day [Active]; Plavix 75 mg Oral tab 1 tab once daily [Active]; Repatha SureClick 140 mg/mL subcutaneous pnij [Active]; Triseba SQ 60 unit [Active]; Vascepa 1 gram Oral cap [Active]; Vitamin D3 Oral [Active]; - PMHx: 18:10 CAD; Depression; Diabetes - IDDM; Diabetes - NIDDM; Diverticulitis; High Cholesterol; ca1 Hypertension; Myocardial infarction; Pancreatitis; - PSHx: 18:10 Carpal Tunnel Repair; D \T\ C; Tubal ligation; Heart stents; TURP; ca1 - Immunization history:: Adult Immunizations up to date. - Social history:: Smoking status: Patient reports the use of cigarette tobacco products, smokes one pack cigarettes per day. Screenin:01 Abuse screen: Denies threats or abuse. Denies injuries from another. Nutritional rr5 screening: No deficits noted. Tuberculosis screening: No symptoms or risk factors identified. Fall Risk None identified. Total Nguyen Fall Scale indicates No Risk (0-24 pts). Assessment: 19:58 General: Appears in no apparent distress. uncomfortable, Behavior is calm, cooperative, rr5 appropriate for age. Pain: Complains of pain in all over the rashes Pain does not radiate. Pain currently is 5 out of 10 on a pain scale. Quality of pain is described as aching, Pain began gradually, Is intermittent. Neuro: Level of Consciousness is awake, alert, obeys commands, Oriented to person, place, time, situation. Cardiovascular: Capillary refill < 3 seconds Patient's skin is warm and dry. Respiratory: Airway is patent Respiratory effort is even, unlabored, Respiratory pattern is regular, symmetrical, Denies shortness of breath. GI: No signs and/or symptoms were reported involving the gastrointestinal system. : No signs and/or symptoms were reported regarding the genitourinary system. EENT: redness on ears, eyes ,face. Derm: Skin temperature is warm Rash noted that is itchy, red, raised, urticaria, on face, right ear, left ear, right eye, left eye, back, chest, abdomen, pelvis, right arm, left arm, right leg and left leg. Musculoskeletal: Circulation, motion, and sensation intact. Capillary refill < 3 seconds. 21:00 Reassessment: Patient appears in no apparent distress at this time. Patient is alert, rr5 oriented x 3, equal unlabored respirations, skin warm/dry/pink. discharge instruction given and explained without complaints made. Patient states feeling better. Patient states symptoms have improved. Vital Signs: 18:05 BP 143 / 82; Pulse 87; Resp 16 S; Temp 97.7(TE); Pulse Ox 98% on R/A; Weight 107.95 kg ca1 (R); Height 5 ft. 6 in. (167.64 cm) (R); Pain 5/10; 20:01 BP 104 / 74; Pulse 85; Resp 17; Pulse Ox 99% ; rr5 21:00 BP 110 / 79; Pulse 80; Resp 16; Pulse Ox 99% ; rr5 18:05 Body Mass Index 38.41 (107.95 kg, 167.64 cm) ca1 ED Course: 17:25 Patient arrived in ED. ag5 17:26 Edvin Perez MD is Private Physician. ag5 18:09 Triage completed. ca1 18:10 Arm band placed on right wrist. ca1 19:17 Navneet Barrios PA is PHCP. cp 19:17 Lyndon Leon MD is Attending Physician. cp 19:45 Jermaine Brock RN is Primary Nurse. rr5 20:01 Patient has correct armband on for positive identification. Placed in gown. Bed in low rr5 position. Call light in reach. Pulse ox on. NIBP on. 21:12 No provider procedures requiring assistance completed. Patient did not have IV access rr5 during this emergency room visit. Administered Medications: 19:57 Drug: SOLU-Medrol 125 mg Route: IM; Site: left gluteus; rr5 21:13 Follow up: Response: No adverse reaction rr5 19:57 Drug: Pepcid 20 mg Route: PO; rr5 21:12 Follow up: Response: No adverse reaction rr5 Outcome: 20:54 Discharge ordered by . cp 21:12 Discharged to home ambulatory. rr5 21:12 Condition: stable 21:12 Discharge instructions given to patient, Instructed on discharge instructions, follow up and referral plans. medication usage, Demonstrated understanding of instructions, follow-up care, medications, Prescriptions given X 2. 21:13 Patient left the ED. rr5 Signatures: Navneet Barrios PA PA cp Roque, Raymond, RN RN rr5 Aleida Motley RN RN [facility] Lorenza Blake 5
== END 2020-02-17 21:13 | disposition home or self-care (01) ==
LOC: ER 17:24
DX: L50.9 Urticaria, unspecified (principal); Z88.9 Allergy status to unspecified drugs, medicaments and biological substances; F17.210 Nicotine dependence, cigarettes, uncomplicated; I10 Essential (primary) hypertension; E11.9 Type 2 diabetes mellitus without complications; E78.00 Pure hypercholesterolemia, unspecified; F32.9 Major depressive disorder, single episode, unspecified; I25.2 Old myocardial infarction; Z79.01 Long term (current) use of anticoagulants; Z79.4 Long term (current) use of insulin; Z79.82 Long term (current) use of aspirin; Z88.8 Allergy status to other drugs, medicaments and biological substances
CPT/HCPCS: 96372; 99283; J2930

== ENCOUNTER 2020-03-09 07:56 | Observation (INO) | payer BC ==
--- OUTSIDE RECORDS SUMMARY | 2020-03-09 07:59 | XMS REPORT | Clinical Summary ---
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
--- OUTSIDE RECORDS SUMMARY | 2020-03-09 08:00 | XMS REPORT | Clinical Summary ---
:1970 Author Organization [facility] Address [address] [place] [address] Care Team Providers Name Role Phone Pcp, No Primary Care Provider Unavailable Allergies Active Allergy Reactions Severity Noted Date Comments Iodinated Contrast Media Swelling High 02/12/2020 Medications Medication Sig Dispensed Refills Start Date End Date Status albuterol HFA Inhale 2 puffs 1 Inhaler 0 02/12/2020 02/11/2021 Active (VENTOLIN HFA) 90 by mouth via mcg/actuation inhaler every inhaler 4 (four) hours as needed for Wheezing. albuterol HFA Inhale 2 puffs 1 Inhaler [...] 4 days. Take by mouth as directed.. predniSONE Take 1 tablet 5 tablet 0 02/12/2020 02/17/2020 Exp ired (DELTASONE) 50 MG (50 mg total) tablet by mouth daily for 5 days. AZITHROmycin Take 2 tablets 6 tablet 0 02/12/2020 02/17/2020 (ZITHROMAX) 250 MG (500 mg total) tablet by mouth daily for 1 day, THEN 1 tablet (250 mg total) daily for 4 days. Take by mouth as directed.. Active Problems Not on file Encounters Date Type Specialty Care Team Description 02/12/2020 Emergency Emergency Medicine Sean Gray COPD exacerbation (HCC) MD Liset (Primary Dx) 02/12/2020 Orders Only General Internal Medicine 02/12/2020 Travel after 03/09/2019 Social History Tobacco Use Types Packs/Day Years [...] 378 ms QTC Calculation(Bazett) 472 ms P George 5 degrees R George -1 degrees T George 23 degrees Normal sinus rhythm Normal ECG No previous ECGs available ECG 12-LEAD STAT 02/12/2020 4:18 PM CDT Resu lts for this procedure are in the results section . after 03/09/2019 Results XR chest 2 views (02/12/2020 5:30 PM CDT) Specimen Narrative Performed At FINAL REPORT [facility] TECHNIQUE: Frontal and lateral chest rad [...] MD Report Verified Date/Time:02/12/2020 17:35:52 Reading Location: [address] [facility] Reading Room Procedure Note Interface, External Ris [...] Verified Date/Time: 02/12/2020 1 7:35:52 Reading Location: [address] [employer] [facility] Reading Room Performing Organization Address City/State/Zipcode Phone Number [facility] SARS-CoV2/RT-PCR (Symptomatic ONLY) (02/12/2020 5:15 PM CDT) SARS-COV2/RT-PCR Not Detected Not Detected, Negative [facility] SARS-COV-2 PERFORMING LAB [facility] Specimen Other Narrative Performed At Negative results do not preclude SARS-CoV-2 [facility] infection and should not be used as [...] the Act. Fact Sheet for Healthcare Providers: https://www.[employer]/Documents/Xpert%20Xpre ss%20SARS%20CoV-2/Fact%20Sheets/3023802%20SAR S-COV-2%20HEALTHCARE%20PROVIDERS%20FACT%20SHEE T.pdf Fact Sheet for Healthcare Patients: https://www.[employer]/Documents/Xpert%20Xpre ss%20SARS%20CoV-2/Fact%20Sheets/3023801%20SAR S-COV-2%20PATIENT%20FACT%20SHEET.pdf Performing Laboratory: [address] [place] [address] Performing Organization Address City/State/Zipcode Phone Number [address] [address] CENTER CBC with platelet count + automated diff (02/12/2020 5:15 PM CDT) WBC 19.8 (H) 3.5 - 10.5 K/L [facility] RBC 5.14 3.93 - 5.22 M/L [facility] Hemoglobin 14.5 11.2 - 15.7 GM/DL [facility] Hematocrit 45.1 (H) 34.1 - 44.9 % [facility] MCV 87.7 79.4 - 94.8 fL [facility] MCH 28.2 25.6 - 32.2 pg [facility] MCHC 32.2 32.2 - 35.5 GM/DL [facility] RDW 12.6 11.7 - 14.4 % [facility] Platelets 217 150 - 450 K/CU MM [facility] MPV 10.8 9.4 - 12.3 fL [facility] nRBC 0 0 - 0 /[address] [facility] % Neutros 91 % [facility] % Lymphs 5 % [facility] % Monos 3 % [facility] % Eos 0 % [facility] % Baso 0 % [facility] # Neutros 18.10 (H) 1.56 - 6.13 K/L [facility] # Lymphs 0.90 (L) 1.18 - 3.74 K/L [facility] # Monos 0.62 (H) 0.24 - 0.36 K/L [facility] # Eos 0.02 (L) 0.04 - 0.36 K/L [facility] # Baso 0.05 0.01 - 0.08 K/L [facility] Immature 1 0 - 1 % [facility] Granulocytes-Relative [facility]TER Specimen Blood Performing Organization Address [facility] Phone Number [address] [address] CENTER Troponin I (02/12/2020 5:15 PM CDT) Troponin I <0.01 0.00 - 0.03 ng/mL [facility] Specimen Blood Narrative Performed At Troponin I (TnI) levels must be interpreted [facility] in the context of the presenting symptoms and the clinical findings. Elevated TnI levels indicate myocardial damage, but are not specific for ischemic heart disease. Elevated TnI levels are seen in patients with other cardiac conditions (including myocarditis and congestive heart failure), and slight TnI elevations occur in patients with other conditions, including sepsis, renal failure, acidosis, acute neurological disease, and persistent tachyarrhythmia. Prepper ID - ARIES E Performing Organization Address City/[facility] Phone Number [address] [address] CENTER B-type Natriuretic Factor (BNP) (02/12/2020 5:15 PM CDT) BNP 18 0 - 100 pg/mL [facility] Specimen Blood Narrative Performed At Prepper ID - ARIES E [facility] Performing Organization Address City/[facility]/Zipcode Phone Number [address] [address] CENTER Basic Metabolic Panel (02/12/2020 5:15 PM CDT) Sodium 139 136 - 145 meq/L [facility] Potassium 3.8 3.5 - 5.1 meq/L [facility] Chloride 106 98 - 107 meq/L [facility] CO2 25 22 - 29 meq/L [facility] BUN 10 7 - 21 mg/dL [facility] Creatinine 0.70 0.57 - 1.25 mg/dL [facility] Glucose 184 (H) 70 - 105 mg/dL [facility] Calcium 8.8 8.4 - 10.2 mg/dL [facility] EGFR 107Comment: INSUFFICIENT mL/min/1.73 sq m [facility] CLINICAL DATA TO CALCULATE [facility] ESTIMATED GFR. Specimen Blood Narrative Performed At Prepper ID - ARIES E [facility] [place] Performing Organization Address City/State/Zipcode Phone Number [facility] [address] [place] [address] CENTER ECG 12 lead (02/12/2020 4:18 PM CDT) Specimen Narrative Performed At Ventricular Rate 94 BPM GE MUSE Atrial Rate 94 BPM P-R Interval 124 ms QRS Duration 72 ms Q-T Interval 378 ms QTC Calculation(Bazett) 472 ms P George 5 degrees R George -1 degrees T George 23 degrees Normal sinus rhythm Normal ECG No previous ECGs available Confirmed by MD VIVAR JOSEPH P ([id number]) on 0 6:29:32 AM Procedure Note Interface, External Ris In - 02/13/2020 6:29 AM CDT Ventricular Rate 94 BPM Atrial Rate 94 BPM P-R Interval 124 ms QRS Duration 72 ms Q-T Interval 378 ms QTC Calculation(Bazett) 472 ms P George 5 degrees R George -1 degrees T George 23 degrees Normal sinus rhythm Normal ECG No previous ECGs available Confirmed by MD VIVAR JOSEPH P ([id number]) on 02/13/2020 6:29:32 AM Performing Organization Address City/State/Zipcode Phone Number [employer] after 03/09/2019 Insurance Payer Benefit Plan / Group Subscriber ID Type Phone A ddress CDCREVIEW CDCREVIEW xxxxxxxx [address], [place] [phone]
--- OUTSIDE RECORDS SUMMARY | 2020-03-09 08:03 | XMS REPORT | Continuity of Care Document ---
:1970 Author Organization [employer] Information [place] Care Team Providers Name Role Phone [employer] Unavailable Un available Problems Problem Status Onset Classification Date Comments Sourc e Date Reported Urinary tract 03/02/2017 infection, site not 017 [place] specified ABD PAIN Active [facility] 017 [place] TMJ SYNDROME Active Condition 08/23/2014 [facility]14 [facility] MEDIAL MENISCUS TEAR, Active Condition 08/23/2014 LEFT 014 [facility] Tear of medial Resolved Problem 02/09/2020 Data meniscus of knee 014 migrated Med ical (disorder) from [facility],Mis Centricity jamee on 02/18/15. Neuro, [facility] Temporomandibular Resolved Problem 02/09/2020 Data M H [id number] 014 migrate d Medical syndrome (disorder) from [facility]is Centricity jamee on 02/18/15. Neuro [facility] POLYDIPSIA Active Condition 08/23/2014 014 [facility] Excessive thirst Resolved Problem 02/09/2020 Data (finding) 014 migrated Medical from [facility],Mis Centricity jamee on 02/18/15. Neuro [facility] RHINITIS Inactive Condition 08/23/2014 014 [facility] UTI Inactive Condition 08/23/2014 014 [facility] Urinary tract Resolved Problem 02/09/2020 Data infectious disease 014 migrated M edical (disorder) from [facility],Mis Centricity jamee on 04/04/15. Neuro [facility] HYPERTENSION Active Condition 08/23/2014 014 [facility] DYSLIPIDEMIA Active Condition 08/23/2014 014 [facility] ANXIETY DEPRESSION Active Condition 08/23/2014 014 [facility] OBESITY Active Condition 08/23/2014 014 [facility] PHYSICAL EXAMINATION Active Condition 08/23/2014 014 [facility] Dyslipidemia Active Problem 02/09/2020 Data MH (disorder) 014 migrated Medical from Group,Mis Centricity jamee on 02/18/15. Neuro,[facility], [facility] Hypertensive disorder, Active Problem 02/09/2020 Data MH systemic arterial 014 migrated Me dical (disorder) from Group,Mis Centricity jamee on 02/18/15. Neuro,[facility], [facility] Mixed anxiety and Active Problem 02/09/2020 Data M H depressive disorder 014 migrated Medical (disorder) from [facility],Mis Centricity jamee on 02/18/15. Neuro,[facility], [facility] Obesity (disorder) Active Problem 02/09/2020 Data 014 migrated Medical from Group,Mis Centricity jamee on 02/18/15. Neuro,[facility] Diabetes mellitus Active Problem 02/09/2020 M H (disorder) Medical Group,Mis jamee Neuro, [facility] Diverticulitis Resolved Problem 02/09/2020 MH (disorder) Medical Group,Mis jamee Neuro,[facility] Headache (finding) Active Problem 02/09/2020 Medical Group,Mis jamee Neuro, [facility] Hypercholesterolemia Active Problem 02/09/2020 (disorder) Medical Group,Mis jamee Neuro,[facility] Lumbar radiculopathy Active Problem 02/09/2020 MH (disorder) Medical Group,Mis j[facility]e Neuro, [facility] Depressive disorder Active Problem 02/09/2020 (disorder) Medical Group,Mis jamee Neuro,[facility] Myocardial infarction Active Problem 02/09/2020 MH (disorder) Medical Group,Mis jamee Neuro, [facility] Dysarthria (finding) Active Problem 02/09/2020 [facility] [...] cap, 3 Refill(s) , Pharmacy: [id number] repaglinide 2 mg oral 4 mg = [...] Active 500 MG Extended 1 tab, 2017 [place] Release Tablet PO, [Cipro] Daily, X 5 day, # 5 tab, 0 Refill(s) Benadryl 50 mg, Inactive Route: 2017 [place] IVP, ONCE, Dosing Weight 110.455, kg, Priority: STAT, Start date: 02/27/17 19:30:00 CDT, Stop date: 02/27/17 19:30:00 CDT Morphine 4 mg, Inactive Route: 2016 [place] IVP, ONCE, Dosing Weight 110.455, kg, Priority: STAT, Start date: 02/27/17 18:55:00 CDT, Stop date: 02/27/17 18:55:00 CDT Zofran 4 mg, Inactive Route: 2016 [place] IVP, Drug form: INJ, ONCE, Dosing Weight 110.455, kg, Priority: STAT, Start date: 02/27/17 18:55:00 CDT, Stop date: 02/27/17 18:55:00 CDT Saline Flush 0.9% Notes: Inactive (Same as: 2016 [place] BD Posiflush ) AMLODIPINE one daily Active [...] PANEL eGFR 95 02/27 Result Comment: The [place] eGFR is calculated using the CKD-EPI formula. [...] PANEL ASPARTATE 13 0 - 37 02/27 [place] CHEM PANEL BUN 10 7 - 22 02/27 [place] CHEM PANEL Creatinine 0.74 0.50 - 02/27 Lvl 1.40 [place] CHEM PANEL ALANINE 28 0 - 65 02/27 AMINO [facility] ASE CHEM PANEL Albumin Lvl 3.6 3.5 - 5.0 02/27 [place] CHEM PANEL Alk Phos 81 39 - 136 02/27 [place] CHEM PANEL Glucose Lvl 123 70 - 99 02/27 [place] CHEM PANEL Bili Total 0.3 0.2 - 1.3 02/27 [place] CHEM PANEL Sodium Lvl 143 135 - 145 02/27 [place] CHEM PANEL Total Protein 7.9 6.4 - 8.4 02/27 [place] CHEM PANEL Calcium Lvl 8.9 8.5 - 10.5 02/27 [place] [facility] CHEM PANEL Chloride Lvl 107 95 - 109 02/27 [place] CHEM PANEL Potassium Lvl 3.9 3.5 - 5.1 02/27 [place] CHEM PANEL CO2 29 24 - 32 02/27 [place] CHEM PANEL A/G Ratio 0.8 0.7 - 1.6 02/27 [place] CHEM PANEL AGAP 10.9 10.0 - 02/27 MH 20.0 [place] CHEM PANEL Globulin 4.3 2.7 - 4.2 02/27 [place] [facility] CHEM PANEL B/C Ratio 14 6 - 25 02/27 [place] [facility] CHEM PANEL Lipase Lvl 157 73 - 393 02/27 [facility] ENDOCRINOLO hCG Tot 1 02/27 [facility] HEMATOLOGY Segs 64.7 45.0 - 02/27 MH 75.0 [place] HEMATOLOGY Lymphocytes # 2.9 1.0 - 5.5 02/27 [place] [facility] HEMATOLOGY Basophils # 0.1 0.0 - 0.2 02/27 [place] HEMATOLOGY Eosinophils # 0.4 0.0 - 0.5 02/27 [place] HEMATOLOGY Monocytes # 0.9 0.0 - 0.8 02/27 [place] [facility] HEMATOLOGY Segs-Bands # 7.8 1.5 - 8.1 02/27 [place] HEMATOLOGY Eosinophils 3.2 0.0 - 4.0 02/27 [place] HEMATOLOGY Monocytes 7.4 2.0 - 12.0 02/27 [place] HEMATOLOGY Lymphocytes 24.1 20.0 - 02/27 MH 40.0 [place] HEMATOLOGY Basophils 0.6 0.0 - 1.0 02/27 [place] [facility] HEMATOLOGY Hct 40.4 36.0 - 02/27 MH 48.0 [place] HEMATOLOGY Hgb 13.9 12.0 - 02/27 MH 16.0 [place] HEMATOLOGY RBC X 10x6 4.61 4.20 - 02/27 MH 5.40 [place] HEMATOLOGY WBC X 10x3 12.0 3.7 - 10.4 02/27 [place] [facility] HEMATOLOGY MPV 8.1 7.4 - 10.4 02/27 [place] [facility] HEMATOLOGY RDW 13.9 11.5 - 02/27 MH 14.5 [place] HEMATOLOGY Platelet 279 133 - 450 02/27 [place] [facility] HEMATOLOGY MCHC 34.5 32.0 - 02/27 MH 36.0 [place] HEMATOLOGY MCH 30.2 27.0 - 02/27 MH 31.0 [place] HEMATOLOGY MCV 87.5 80.0 - 02/27 MH 98.0 [place] URINE AND UA Bacteria Moderate None Seen 02/27 STOOL /HPF /HPF /2016 [place] URINE AND UA Sq Epi Few /LPF Few /LPF 02/27 STOOL /2016 [place] URINE AND UA WBC 11-20 None Seen 02/27 STOOL /HPF /HPF /2016 [place] URINE AND UA RBC 21-50 0 - 2 02/27 [facility]OOL /HPF /2016 [place] URINE AND UA Nitrite See Note Negative 02/27 [facility] (02/27/17 5:29 PM) /2016 [place] URINE AND UA Leuk Est Moderate Negative 02/27 STOOL *ABN* /2016 [place] (02/27/17 5:29 PM) URINE AND UA 4.0 0.1 - 1.0 02/27 STOOL Urobilinogen /2016 [place] URINE AND UA Glucose See Note 1 Negative 02/27 Result [facility] (02/27/17 5:29 PM) /2016 Comment: Patricia and Unable to determine due to interference from color of urine.
17:57 cg URINE AND UA Ketones Negative Negative 02/27 STOOL *NA* /2016 [place] (02/27/17 5:29 PM) URINE AND UA Bili See Note Negative 02/27 [facility] (02/27/17 5:29 PM) /2016 [place] URINE AND UA Blood Large Negative 02/27 STOOL *ABN* [place] (02/27/17 5:29 PM) URINE AND UA Protein >=300 Negative 02/27 STOOL mg/dL mg/dL [place] URINE AND UA Turbidity Slight Cloudy Clear 02/27 [facility] (02/27/17 5:29 PM) /2016 [place] URINE AND UA Spec Grav >=1.030 <=1.030 02/27 STOOL *ABN* [place] (02/27/17 5:29 PM) URINE AND UA pH 5.5 5.0 - 8.0 02/27 STOOL /2016 [place] URINE AND UA Color Terry Yellow 02/27 STOOL *ABN* [place] (02/27/17 5:29 PM) URINE CHEM U Preg [...] 251 K/CMM 133 - 450 01/17 [facility] Hematology HGB 14.9 12.0 - 01/17 16.0 /2013 [facility] Hematology HCT 43.8 36.0 - 01/17 48.0 /2013 [facility] Hematology PLATELETS 251 K/CMM 133 - 450 01/17 [facility] Field Care Manager PAP SMEAR Complete 02/17 [facility] Field Care Manager PAP SMEAR Complete 02/17 [facility] Pathology PAP SMEAR Complete 02/17 [facility] Pathology PAP SMEAR Complete 02/17 [facility] Pathology Reports No Data Provided for This Section Diagnostic Reports Report Value Date Source Abd Pancreatic Abd Pancreatic Protocol w/wo contrast CT 10/30/2019 8:41 [employer]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 02/27/2017 [facility] contrast only CT HISTORY: Left lower quadrant [...] Comments Source Systolic (mm Hg) 142 02/07/2020 [facility] Roxy ro Diastolic (mm Hg) 99 02/07/2020 [facility] Ne uro Heart Rate 80 02/07/2020 [facility] Neuro Respitory Rate 16 02/07/2020 [facility] Neuro Height 167.64 cm 02/07/2020 [facility] Neuro Weight 108.182 02/07/2020 [facility] Neuro BMI Calculated 38.49 02/07/2020 [facility] Neuro Systolic (mm Hg) 132 12/05/2019 [facility] Roxy ro Diastolic (mm Hg) 77 12/05/2019 [facility] Ne uro Heart Rate 85 12/05/2019 [facility] Neuro Respitory Rate 16 12/05/2019 [facility] Neuro Height 167.64 cm 12/05/2019 [facility] Neuro Weight 111.818 12/05/2019 [facility] Neuro BMI Calculated 39.79 12/05/2019 [facility] Neuro Systolic (mm Hg) 137 10/12/2019 Medical [...] uro Systolic (mm Hg) 133 02/28/2017 [facility] [place] Diastolic (mm Hg) 63 02/28/2017 [place] Respitory Rate 18 02/28/2017 [place] Temperature Oral (F) 98 F 02/28/2017 [place] Heart Rate 82 02/28/2017 [facility] [place] Systolic (mm Hg) 142 02/28/2017 [facility] [place] Diastolic (mm Hg) 70 02/28/2017 [place] Heart Rate 122 02/27/2017 [facility] [place] Systolic (mm Hg) 128 02/27/2017 [facility] [place] Diastolic (mm Hg) 85 02/27/2017 [place] Temperature Oral (F) 98.6 F 02/27/2017 [facility] Respitory Rate 18 02/27/2017 [facility] Height 167.64 cm 02/27/2017 [facility] BMI Calculated 39.3 02/27/2017 [facility] Weight 110.455 02/27/2017 [facility] Height 65.5 08/23/2014 [facility] [...] Provider Date Date Visit [facility] Report [id number] Samson 01/17 01/17 Srini 6980 [facility] Office [id number] Samson 03/29 03/29 [place] Visit 1590 Karen [facility] Office [id number] Samson 05/10 05/10 [place] Visit 5240 2014 Medical [facility] Lab Report [id number] [facility]/10 [facility], Medical Medical [facility] Group [facility] Office [id number] Samson 08/23 08/23 [place] Visit 3330 Uriel, Medical Medical MD Group Group [facility] Emergency [id number] Spike 02/27 02/28 Srini Wenceslao /2016 [facility] Outpatient [id number] Ruy 04/03 04/04 [facility] /2018 [facility] [place] Outpatient [id number] Ruy 05/18 Active [facility] Kre Srini MNA Outpatient [id number] Ruy 05/18 05/19 [facility] [place] Outpatient [id number] Ruy 06/27 Active [facility] Kre [place] [facility] Outpatient [id number] Ruy 06/27 06/28 [facility] [place] Outpatient [id number] Ruy 08/08 Active [facility] Kre [place] [facility] Outpatient [id number] Ruy 08/08 08/09 [facility] [place] Outpatient [id number] Nadim 10/12 Active [facility] Therese [place] [facility] Outpatient [id number] Nadim 10/12 10/13 [facility] Therese /2019 [facility] Between [id number] 10/13 10/14 Gastroenter Visit /2019 Medic al ology [facility] Outpt Diag [id number] Nadim 10/30 10/31 [facility] Outpatient [id number] Ruy 12/04 Active [facility] Kre Srini [facility] Outpatient [id number] Ruy 12/04 12/05 [facility] Kre /2019 [facility] [place] Outpatient [id number] Ruy 01/09 Active [facility] Kre Srini [facility] Outpatient [id number] Ruy 01/09 01/10 [facility] Kre /2019 [facility] [place] Outpatient [id number] Ruy 02/06 Active [facility] Krell /2019 [place] [facility] Outpatient [id number] Ruy 02/06 02/07 [facility] [place] [facility] [id number] Ruy 04/02 Active [facility] Krell /2020 [place] Outpatient [id number] Ruy 05/23 Active [facility] Krell /2020 [place] Procedures Procedure Code Date Perfomer Comments Source smoking/tobacco 14 01/17/2014 [facility] Med[facility] l cessation, patient Group education and counseling mammogram 63347 04/19/2013 [facility] vaginal Pap smear 52007 02/17/2013 [facility] johnny results Group Assessment and Plan No Data Provided for This Section Plan of Care No Data Provided for This Section Social History Social History Date Source Social History TypeResponse 04/03/2019 [facility] Employment/School Status: Employed. Work/School description: [employer]. Smoking Status Current every day smoker; Type: Cigarett es; Exposure to Tobacco Smoke Unable to obtain; Cigarette Smoking Last 365 Days Yes; Reg Smoking Cessation Counseling No entered on: 02/07/20 Social History TypeResponse 04/03/2019 Lisa G ariel Employment/School Status: Employed. Work/School description: [employer]. Smoking Status Current every day smoker; Lives with chau eone who smokes; Cigarette Smoking Last 365 Days Yes; Reg Smoking Cessation Counseling Yes entered on: 10/12/19 Social History TypeResponse 04/03/2019 ROCAEL Morris Employment/School Status: Employed. Work/School description: [place]. Smoking Status Current every day smoker; Lives [...]
--- OUTSIDE RECORDS SUMMARY | 2020-03-09 08:08 | XMS REPORT | Continuity of Care Document ---
:1970 Author Organization [facility] t Address [address] [place] [id number] Care Team Providers Name Role Phone Chris WATSON Primary Care Physician KARIN KERN Attending Clinician Unavailable Karin Kern MD Attending Clinician Valentín Mac Attending Clinician Jorge Saleh Attending Clinician Jorge A Billy Attending Clinician Payers Payer Name Policy Policy Effective Expiration Source Type Number Date Date CDCREVIEWCDCREVIEWxxxxxxxxPO xxxxx[place] [address] [facility] Problems Condition Condition Condition Status Onset Resolution Last Treating Co mments Source Name Details Category Date Date Treatment Clinician Date ABD PAIN Diagnosis Active 2017-02-27 M emoria - 17:40:00 l ABD PAIN 00:00: Juan F n 00 Active 02/27/2017 [facility] Srini TMJ Condition Active 2013-092014-08-23 Mem oria SYNDROME 2- 10:51:01 l TMJ 00:00: Srini SYNDROME 00 Active 08/23/2014 Condition [facility] MEDIAL Condition Active 2013-092014-08-23 Mem oria MENISCUS 2-05 10:51:01 l TEAR, LEFT MEDIAL 00:00: Herm birgit MENISCUS 00 TEAR, LEFT Active 08/23/2014 Condition [facility] POLYDIPSIA Condition Active 2014-08-23 Memoria 8- 10:51:01 l 00:00: Perry POLYDIPSIA 00 Active 05/10/2014 Condition [facility] HYPERTENSI Condition Active 2014-08-23 Memoria ON 01-17 10:51:01 l 00:00: Srini HYPERTENSI 00 ON Active 4 Condition 08/23/2014 Medical Group DYSLIPIDEM Condition Active 2014-08-23 Memoria IA 01-17 10:51:01 l 00:00: Srini DYSLIPIDEM 00 IA Active 4 Condition 08/23/2014 Medical Group ANXIETY Condition Active 2014-08-23 Me moria DEPRESSION - 10:51:01 l ANXIETY 00:00: Perry DEPRESSION 00 Active 01/17/2014 Condition [facility] OBESITY Condition Active 2014-08-23 Me moria 5- 10:51:01 l OBESITY 00:00: Perry 00 Active 01/17/2014 Condition [facility] PHYSICAL Condition Active 2014-08-23 M emoria EXAMINATIO - 10:51:01 l N PHYSICAL 00:00: Juan F n EXAMINATIO 00 N Active 01/17/2014 Condition 4 [facility] Dyslipidem Problem Active 2020-02-09 M emoria ia 01-17 23:58:52 l (disorder) 00:00: Juan F n Dyslipidem 00 ia (disorder) Active 01/17/2014 Problem 02/09/2020 Data migrated from [employer] on 02/18/15. Medical Group,[facility] her Neuro, [place] [facility] [place] Hypertensi Problem Active 2020-02-09 M emoria ve 01-17 23:58:52 l disorder, 00:00: Perry systemic Hypertensi 00 arterial ve (disorder) disorder, systemic arterial (disorder) Active 01/17/2014 Problem 02/09/2020 Data migrated from [employer] on 02/18/15. Medical Group,[facility] her Neuro, [place] [facility] [place] [place] Mixed Problem Active 2020-02-09 Memor ia anxiety 01-17 23:58:52 l and Mixed 00:00: Srini depressive anxiety 00 disorder and (disorder) depressive disorder (disorder) Active 01/17/2014 Problem 02/09/2020 Data migrated from [employer] on 02/18/15. Medical Group,[facility] her Neuro, [place] [facility] [place] Obesity Problem Active 2020-02-09 Alexey farida (disorder) 01-17 23:58:52 l Obesity 00:00: Srini (disorder) 00 Active 01/17/2014 Problem 02/09/2020 Data migrated from [employer] on 02/18/15. Medical Group,[facility] her Neuro, [place] [facility] [place] Diverticul Problem Resolve 2020-02-09 Memoria itis d 23:58:52 l (disorder) Juan F n Diverticul itis (disorder) Resolved Problem 02/09/2020 Medical Group,[facility] her Neuro, [place] [facility] [place] Diabetes Problem Active 2020-02-09 Mem oria mellitus 23:58:52 l (disorder) Diabetes He rmann mellitus (disorder) Active Problem 02/09/2020 Medical Group,[facility] her Neuro, [place] Headache Problem Active 2020-02-09 Mem oria (finding) 23:58:52 l Headache Juan F n (finding) Active Problem 02/09/2020 Medical Group,[facility] her Neuro, [place] Hyperchole Problem Active 2020-02-09 M emoria sterolemia 23:58:52 l (disorder) Juan F n Hyperchole sterolemia (disorder) Active Problem 02/09/2020 Medical Group,[facility] her Neuro, [place] [facility] [place] Lumbar Problem Active 2020-02-09 Memor ia radiculopa 23:58:52 l thy Lumbar Srini (disorder) radiculopa thy (disorder) Active Problem 02/09/2020 Medical Group,[facility] her Neuro, [place] Depressive Problem Active 2020-02-09 M emoria disorder 23:58:52 l (disorder) Juan F n Depressive disorder (disorder) Active Problem 02/09/2020 Medical Group,[facility] her Neuro, [place] [facility] [place] Myocardial Problem Active 2020-02-09 M emoria infarction 23:58:52 l (disorder) Juan F schmidt Myocardial infarction (disorder) Active Problem 02/09/2020 Medical Group,[facility] her Neuro,[facility] Dysarthria Problem Active 2020-02-09 M emoria (finding) 23:58:52 l [place] Dysarthria (finding) Active Problem 02/09/2020 [facility] Paresthesi Problem Active 2020-02-09 M emoria a 23:58:52 l (finding) [place] Paresthesi a (finding) Active Problem 02/09/2020 [facility] Urinary Problem 2016-2017-03-02 2017-03-02 Memoria tract - 00:42:19 00:42:19 l infection, Urinary 05:00: Her ley site not tract 00 specified infection, site not specified 02/27/2017 03/02/2017 [place] Allergies, Adverse Reactions, Alerts Allergy Allergy Status Severity Reaction(s) Onset Inactive Treating Comm ents Source Name Type Date Date Clinician Iodinate Drug Active Swelling [facility] St d Allergy 5-26 [facility] Contrast 00:00: [facility] 00 Center Iodine Propensi Active [place] And ty to 7-19 [facility] Iodide adverse 00:00: st Containi reaction 00 ng s to Products drug No Known No Known Active Memori a Medicati Medicati l on on Srini Coppola Allergthang s s Family History Family Member Diagnosis Comments Start Date Stop Date Source Natural brother Cancer [facility] ethodist Natural father Alzheimer's disease kade [facility] Natural father Hypertension [place] [facility] Natural mother Cancer [facility] thodist Natural mother Hypertension [facility] Social History Social Habit Start Date Stop Date Quantity Comments Source Sex Assigned At [facility] Social History 2019-04-03 2019-04-03 Edward padilla 18:52:55 18:52:55 Alcohol intake 2017-12-19 2017-12-19 Current [facility] thodist 00:00:00 00:00:00 non-drinker of alcohol (finding) Smoking Status Start Date Stop Date Source Social History 2017-02-27 23:48:32 [facility] Medications Ordered Filled Start Stop Current Ordering Indication Dosage Frequency Signature Comments Components Source Medication Medication Date Date Medication? Clinician (SIG) Name Name albuterol 2020- Yes 2{puff} Inhale [address] [facility] HFA 02-11- puffs by [facility] - (VENTOLIN 00:00: 23:59 mouth via Me dical HFA) 90 00 :00 inhaler Center mcg/actuati every 4 on inhaler (four) hours as needed for Wheezing. predniSONE 2019- No 50mg QD Take [address] [facility] (DELTASONE) 02-11 tablet (50 L ukes - 50 MG 00:00: 23:59 mg total) Medica l tablet 00 :00 by mouth Center daily for 5 days. AZITHROmyci 2019- No Take [address] [facility] n 02-11 tablets [facility] - (ZITHROMAX) 00:00: 23:59 (500 mg Me dical 250 MG 00 :00 total) by Center tablet mouth daily for 1 day, THEN 1 tablet (250 mg total) daily for 4 days. Take by mouth as directed.. albuterol 2019- No 2{puff} Inhale [address] [facility] [address] HFA 02-11 puffs by [facility] - (VENTOLIN 00:00: 00:00 mouth via Me dical HFA) 90 00 :00 inhaler Center mcg/actuati every 4 on inhaler (four) hours as needed for Wheezing. AZITHROmyci 2019- No Take [address] [facility] n 02-11 tablets [facility] - (ZITHROMAX) 00:00: 00:00 (500 mg Me dical 250 MG 00 :00 total) by Center tablet mouth daily for 1 day, THEN 1 tablet (250 mg total) daily for 4 days. Take by mouth as directed.. pregabalin 2019- Yes 75 mg = 1 Me moria 75 MG Oral 5-21 cap, PO, l Capsule 15:03: Daily, # Juan F n [Lyrica] 00 30 cap, 3 Refill(s), other aripiprazol 2019-0 Yes 5 mg = 1 Me moria e 5 MG Oral 5-21 tab, PO, l Tablet 14:52: Daily, 0 Perry [Abilify] 00 Refill(s) Diclofenac 2019-0 Yes 2 gm, TOP, M emoria Sodium 0.01 4-23 BID, 0 l MG/MG 14:28: Refill(s) Srini Topical Gel 00 [Voltaren] Repatha 2020-0 Yes 140 mg, Memoria 4-23 SUB-Q, l 14:28: qMonth, 0 Perry 00 Refill(s) meloxicam 2019-0 Yes 15 mg, PO, Me moria 4-23 Daily, 0 l 14:25: Refill(s) [place] 00 Methocarbam 2019-0 Yes 0 Memori a ol 4-23 Refill(s) l 14:25: [place] NovoLog 2020-0 Yes 25 unit, Memori a 4-23 SUB-Q, l 14:24: TID-Before Perry 00 Meals, 0 Refill(s) pregabalin Yes 75 mg = 1 Me moria 75 MG Oral 3-18 cap, PO, l Capsule 19:33: BID, # 60 Alisia nn [Lyrica] 00 cap, 3 Refill(s), Pharmacy: [id number] repaglinide 2019-0 Yes 4 mg = 2 Me moria 2 mg oral 3-18 tab, PO, l tablet 19:17: TID-Before Alisia nn 00 Meals, 0 Refill(s) metFORMIN 2019- Yes 500 mg = 1 Me moria 500 mg oral 3-18 tab, PO, l tablet, 19:17: BID-Meals, Herm birgit extended 00 # 60 tab, release 1 Refill(s) 3 ML 2020-0 Yes SUB-Q, Memoria insulin 3-18 Daily, 0 l degludec 19:17: Refill(s) Herm birgit 200 UNT/ML 00 Pen Injector [Tresiba] pregabalin 2018-09 Yes 75 mg = 1 Me moria 75 MG Oral 1-20 cap, PO, l Capsule 21:20: BID, # 60 Alisia nn [Lyrica] 16 cap, 3 Refill(s) pregabalin Yes 75 mg = 1 Me moria 75 MG Oral 8-30 cap, PO, l Capsule 20:43: BID, # 60 Alisia nn [Lyrica] 00 cap, 2 Refill(s) ezetimibe Yes 10 mg = 1 Mem oria 7-16 tab, PO, l 18:39: Daily, # Srini 00 30 tab, 0 Refill(s) Nitroglycer Yes See Memori a in 16 Instructio l 18:39: ns, 5 mg PO Daily, 0 Refill(s) Lipitor 0 Yes 80 mg, PO, Alexey farida 7-16 Daily, 0 l 18:39: Refill(s) Vascepa Yes 1g, PO, Memoria 7-16 Daily, 0 l 18:39: Refill(s) Sertraline Yes 100 mg, Alexey farida 7-16 PO, Daily, l 18:39: 0 Refill(s) clopidogrel Yes 75 mg, PO, Memoria 7-16 Daily, 0 l 18:39: Refill(s) Hydrochloro Yes 25 mg, PO, Memoria thiazide 7-16 BID, 0 l 18:39: Refill(s) Norvasc Yes 5 mg, PO, Memor ia 7-16 Daily, 0 l 18:39: Refill(s) Metformin Yes 500 mg, Memor ia 7-16 PO, BID, 0 l 18:39: Refill(s) doxycycline Yes TK 1 T PO H [...] mouth once st tablet 00 daily. ALPRAZolam Yes TAKE 1 [place] on (NIRAVAM) 6-21 TABLET BY Metho di 0.5 MG 00:00: MOUTH ONCE st disintegrat 00 A DAY ing tablet NEEDED ciprofloxac Yes QD Take by Serena fritzroxana in, 6-19 mouth once [facility] mixture, 00:00: daily. st (CIPRO XR) 00 500 mg 24 hr tablet telmisartan 2017-0 Yes 80mg QD Take 80 mg Mcconnell (MICARDIS) 6-15 by mouth Metho di 80 MG 00:00: once st tablet 00 daily. amLODIPine 2017-0 Yes 5mg QD Take 5 mg Damion bhagat (NORVASC) 5 6-14 by mouth Meth gris mg tablet 00:00: once st 00 daily. atorvastati 2017-0 Yes 40mg QD Take 40 mg Mcconnell n (LIPITOR) 6-14 by mouth Meth gris 40 MG 00:00: once st tablet 00 daily. ezetimibe 2017-0 Yes 10mg QD Take 10 mg Damion bhagat (ZETIA) 10 6-14 by mouth Metho di mg tablet 00:00: once st 00 daily. omeprazole 2017-0 Yes 40mg QD Take 40 mg [place] (PriLOSEC) 6-14 by mouth Metho di 40 MG 00:00: once st capsule 00 daily. tramadol 2017-0 Yes 50 mg = 1 Alexey farida hydrochlori 6-12 tab, PO, l de 50 MG 01:01: Q6H, PRN Alisia nn Oral Tablet 00 Pain, X 3 day, # 12 tab, 0 Refill(s) 24 HR 2017-0 Yes 500 mg = 1 Memori a Ciprofloxac 6-12 tab, PO, l in 500 MG 01:00: Daily, X 5 He rmann Extended 00 day, # 5 Release tab, 0 Tablet Refill(s) [Cipro] Benadryl 2017-0 No 50 mg, Memoria 612 Route: l 00:30: IVP, ONCE, Dosing Weight 110.455, kg, Priority: STAT, Start date: 02/27/17 19:30:00 CDT, Stop date: 02/27/17 19:30:00 CDT Morphine 2017-0 No 4 mg, Memoria 02-27 Route: l 23:55: IVP, ONCE, Dosing Weight 110.455, kg, Priority: STAT, Start date: 02/27/17 18:55:00 CDT, Stop date: 02/27/17 18:55:00 CDT Zofran No 4 mg, Memoria 6-11 Route: l 23:55: IVP, Drug form: INJ, ONCE, Dosing Weight 110.455, kg, Priority: STAT, Start date: 02/27/17 18:55:00 CDT, Stop date: 02/27/17 18:55:00 CDT Saline No Notes: Memoria Flush 0.9% 6-11 (Same as: l 22:13: BD Posiflush) ciprofloxac Yes TK 1 T PO [place] in HCl 6-10 BID Methodi (CIPRO) 250 00:00: st MG tablet 00 phenazopyri Yes TK 1 T PO [place] dine 6-10 TID [facility] (PYRIDIUM) 00:00: st 200 MG 00 tablet AMLODIPINE 2013-09 Yes one daily Me moria BESY-BENAZE 2-05 l PRIL HCL 00:00: Perry 10-40 MG 00 CAPS DYAZIDE 2013-09 Yes one daily Memor ia 37.5-25 MG 2-05 l CAPS 00:00: AMLODIPINE Yes one daily Me moria BESY-BENAZE 8-22 l PRIL HCL 00:00: Perry 5-40 MG 00 CAPS ATORVASTATI Yes one tablet Memoria N CALCIUM 7-11 every l 10 MG TABS 00:00: evening AMLODIPINE No One tablet M emoria BESY-BENAZE 7-11 every l PRIL HCL 00:00: morning. Alisia nn 5-20 MG 00 CAPS BACTRIM DS No one bid. Mem oria 800-160 MG 7-11 l TABS 00:00: ATORVASTATI Yes one tablet Memoria N CALCIUM 7-11 every l 10 MG TABS 00:00: evening Herm birgit DIOVAN HCT No one daily Me moria 160-12.5 MG 5-01 l TABS 00:00: LAMICTAL Yes 1 tablet Memor ia 150 MG TABS 5-01 daily l 00:00: LEXAPRO 20 Yes 1 tablet Mem oria MG TABS 5-01 twice day l 00:00: ALPRAZOLAM 2014-0 Yes 1 tablet Mem oria 0.5 MG TABS 5-01 daily PRN l 00:00: LEXAPRO 20 2014-0 Yes 1 tablet Mem oria MG TABS 5-01 twice day l 00:00: ALPRAZOLAM 2014-0 Yes 1 tablet Mem oria 0.5 MG TABS 5-01 daily PRN l 00:00: DIOVAN HCT 2013-0 No one daily Me moria 160-12.5 MG 5-01 l TABS 00:00: Vital Signs Vital Name Observation Time Observation Value Comments Source Systolic blood 2020-02-12 19:00:00 124 mm[Hg] [facility] Diastolic blood 2020-02-12 19:00:00 68 mm[Hg] [facility] Heart rate 2020-02-12 19:00:00 98 /min [facility] Respiratory rate 2020-02-12 19:00:00 19 /min [facility] Oxygen saturation in 2020-02-12 19:00:00 96 /min [facility] Arterial blood by Medical Ce nter Pulse oximetry Body temperature 2020-02-12 15:57:00 36.89 Ayse [facility] Body weight Measured 2020-02-12 15:57:00 107.956 kg [facility] Systolic (mm Hg) 2020-02-07 14:50:00 Alexeybc meeks Srini Diastolic (mm Hg) 2020-02-07 [facility] 2020-02-07 14:50:00 [facility] Respitory Rate 2020-02-07 14:50:00 [facility] 2020-02-07 14:50:00 167.64 cm [facility] Weight 2020-02-07 14:50:00 [facility] BMI Calculated 2020-02-07 14:50:00 Memori al [place] Systolic (mm Hg) 2019-12-05 19:12:00 Alexey rial Srini Diastolic (mm Hg) 2019-12-05 19:12:00 [facility] orial [place] Heart Rate 2019-12-05 19:12:00 [facility] [place] Respitory Rate 2019-12-05 19:12:00 Memori al Srini Height 2019-12-05 19:12:00 167.64 cm Memorial Srini Weight 2019-12-05 19:12:00 [facility] [place] BMI Calculated 2019-12-05 19:12:00 Memori al Srini Systolic (mm Hg) 2019-10-12 17:34:00 Alexey rial Srini Diastolic (mm Hg) 2019-10-12 17:34:00 Mem orial Srini Heart Rate 2019-10-12 17:34:00 [facility] Srini Height 2019-10-12 17:34:00 167.64 cm [facility] [place] Weight 2019-10-12 17:34:00 [facility] [place] BMI Calculated 2019-10-12 17:34:00 Memori al Srini Systolic (mm Hg) 2019-08-08 20:55:00 Alexey rial Srini Diastolic (mm Hg) 2019-08-08 20:55:00 Mem orial [place] Heart Rate 2019-08-08 20:55:00 [facility] [place] Respitory Rate 2019-08-08 20:55:00 Memori al Srini Height 2019-08-08 20:55:00 167.64 cm [facility] [place] Weight 2019-08-08 20:55:00 [facility] [place] BMI Calculated 2019-08-08 20:55:00 Memori al Srini Systolic (mm Hg) 2019-06-27 20:49:00 Alexey rial [place] Diastolic (mm Hg) 2019-06-27 20:49:00 Mem orial Srini Heart Rate 2019-06-27 20:49:00 [facility] [place] Respitory Rate 2019-06-27 20:49:00 Memori al [place] Height 2019-06-27 20:49:00 167.64 cm [facility] [place] Weight 2019-06-27 20:49:00 [facility] [place] BMI Calculated 2019-06-27 20:49:00 Memori al [place] Systolic (mm Hg) 2019-05-18 20:00:00 Alexey rial Srini Diastolic (mm Hg) 2019-05-18 20:00:00 Mem orial Srini Heart Rate 2019-05-18 20:00:00 Memorial Srini Respitory Rate 2019-05-18 20:00:00 Memori al Srini Height 2019-05-18 20:00:00 167.64 cm [facility] [place] Weight 2019-05-18 20:00:00 [facility] [place] BMI Calculated 2019-05-18 20:00:00 Memori al Srini Weight 2019-04-03 18:11:00 Memorial Srini BMI Calculated 2019-04-03 18:11:00 Memori al [place] Height 2019-04-03 18:11:00 167.64 cm [facility] [place] Heart Rate 2019-04-03 18:11:00 [facility] Srini Respitory Rate 2019-04-03 18:11:00 Memori al Srini Systolic (mm Hg) 2019-04-03 18:11:00 Alexey rial [place] Diastolic (mm Hg) 2019-04-03 18:11:00 Mem orial Srini Systolic (mm Hg) 2017-02-28 01:20:00 Alexey rial [place] Diastolic (mm Hg) 2017-02-28 01:20:00 Mem orial [place] Respitory Rate 2017-02-28 00:36:00 Memori al Srini Temperature Oral (F) 2017-02-28 00:36:00 98 F [facility] [place] Heart Rate 2017-02-28 00:36:00 [facility] [place] Systolic (mm Hg) 2017-02-28 00:36:00 Alexey rial Srini Diastolic (mm Hg) 2017-02-28 00:36:00 Mem orial Srini Heart Rate 2017-02-27 22:13:00 [facility] Srini Systolic (mm Hg) 2017-02-27 22:13:00 Alexey rial Srini Diastolic (mm Hg) 2017-02-27 22:13:00 Mem orial Srini Temperature Oral (F) 2017-02-27 22:13:00 98.6 F [facility] [place] Respitory Rate 2017-02-27 22:13:00 Memori al Srini Height 2017-02-27 22:13:00 167.64 cm [facility] [place] BMI Calculated 2017-02-27 22:13:00 Memori al [place] Weight 2017-02-27 22:13:00 [facility] Srini Height 2014-08-23 16:51:01 [facility] Srini Weight 2014-08-23 16:51:01 [facility] [place] Temperature Oral (F) 2014-08-23 16:51:01 98.1 F [facility] [place] Heart Rate 2014-08-23 16:51:01 [facility] Srini Systolic (mm Hg) 2014-08-23 16:51:01 Alexey rial Srini Diastolic (mm Hg) 2014-08-23 16:51:01 Mem orial [place] Weight 2014-05-10 15:26:33 [facility] Srini Temperature Oral (F) 2014-05-10 15:26:33 98.2 F [facility] Srini Heart Rate 2014-05-10 15:26:33 [facility] Srini Systolic (mm Hg) 2014-05-10 15:26:33 Alexey rial Srini Diastolic (mm Hg) 2014-05-10 15:26:33 Mem orial [place] Height 2014-05-10 15:26:33 [facility] [place] Weight 2014-03-29 15:53:52 [facility] [place] Temperature Oral (F) 2014-03-29 15:53:52 97.8 F [facility] Srini Heart Rate 2014-03-29 15:53:52 [facility] [place] Systolic (mm Hg) 2014-03-29 15:53:52 Alexey rial Perry Diastolic (mm Hg) 2014-03-29 15:53:52 Mem orial Srini Height 2014-01-17 14:43:32 Memorial Srini Weight 2014-01-17 14:43:32 [facility] [place] Temperature Oral (F) 2014-01-17 14:43:32 98.0 F [facility] [place] Heart Rate 2014-01-17 14:43:32 [facility] [place] Systolic (mm Hg) 2014-01-17 14:43:32 Alexey rial [place] Diastolic (mm Hg) 2014-01-17 14:43:32 Mem orial [place] Procedures Procedure Date / Time Performed Performing Clinician [facility] e XR CHEST 2 VIEWS 2020-02-12 17:30:00 Sean Kern [facility] SARS-COV2/RT-PCR ([facility] & 2020-02-12 17:15:00 Sean Kern [facility] - REF LABS) [facility] B-TYPE NATRIURETIC 2020-02-12 17:15:00 Sean Kenr [facility] FACTOR (BNP) [facility] BASIC METABOLIC PANEL 2020-02-12 17:15:00 Sean Kern [facility] [address] TROPONIN I 2020-02-12 17:15:00 Sean Kernbc [facility] CBC W/PLT COUNT & AUTO 2020-02-12 17:15:00 IsaacSean mirbc [facility] ECG 12-LEAD 2020-02-12 16:18:19 Unknown, Hl[facility] smoking/tobacco 2014-01-17 14:43:32 [facility] cessation, patient education and counseling mammogram 2013-04-19 15:45:41 [facility] vaginal Pap smear 2013-02-17 14:53:37 [facility] ermann results Plan of Care Planned Activity Planned Date Details Comments Source Future Scheduled 2020-04-19 INFLUENZA VACCINE [place] [facility] Test 00:00:00 [code = INFLUENZA VACCINE] Future Scheduled 2018 BREAST CANCER [facility] thodist Test 00:00:00 SCREENING [code = BREAST CANCER SCREENING] Future Scheduled 2018 COLONOSCOPY SCREENING [place] [facility] Test 00:00:00 [code = COLONOSCOPY SCREENING] Future Scheduled 2018 SHINGLES VACCINES [place] [facility] Test 00:00:00 (#1) [code = SHINGLES VACCINES (#1)] Future Scheduled 1989 Screening for [facility] thodist Test 00:00:00 malignant neoplasm of cervix (procedure) [code = 335356344] Encounters Start End Encounter Admission Attending Care Care Encounter Source Date/Time Date/Time Type Type Clinicians Facility Department ID 2020-02-07 2020-02-07 Outpatient DASHA Mac [id number] 09:30:00 23:59:59 Ruy 07 Valentín 2020-01-10 2020-01-10 Outpatient DASHA Mac [id number] 09:15:00 23:59:59 Ruy 06 Valentín 2019-12-05 2019-12-05 Outpatient DASHA Mac [id number] 13:45:00 23:59:59 Ruy 04 Valentín 2019-10-30 2019-10-30 Outpatient Therese, [id number] 08:26:00 23:59:00 Nadim Jorge [id number] 2019-10-13 2019-10-14 Outpatient [facility] [id number] 13:24:03 13:24:03 03 2019-10-12 2019-10-12 Outpatient Therese [facility] [id number] 11:00:00 23:59:59 Nadim Jorge 00 2019-08-08 2019-08-08 Outpatient Estefania [facility] MISCHER [id number] 14:45:00 23:59:59 Ruy 03 [facility] 2019-06-27 2019-06-27 [id number] 15:45:00 23:59:59 Ruy [facility] 2019-05-18 2019-05-18 [facility] [id number] 14:30:00 23:59:59 Ruy [facility] 2019-04-03 2019-04-03 [id number] 13:00:00 23:59:59 Ruy 00 [facility] 2017-02-27 2017-02-[id number] 17:07:00 20:28:00 Spike Danita Jules Results Test Description Test Time Test Comments Results Result Sour e Comments ECG 12 lead 2020-01-19 Interface, External Ris [facility] In - 02/13/2020 6:29 Ashley es - 06:29:35 AM CDTVentricular Rate Me dical 94 BPMAtrial Rate 94 Cent er BPMP-R Interval 124 msQRS Duration 72 msQ-T Interval 378 msQTC Calculation(Bazett) 472 msP [place] 5 degreesR [place] -1 degreesT [place] 23 degreesNormal sinus rhythmNormal ECGNo previous ECGs availableConfirmed by MD CB, AGUILA Colin ([id number]) on 02/13/2020 6:29:32 AM SARS-CoV2/RT-PCR (Symptomatic ONLY) 2020-02-12 19:30:00 Test Item Value Reference Range Interpretation Comme nts SARS-COV2/RT-PCR (test code = Not Detected Not Detected, Negative 20314-8) SARS-COV-2 PERFORMING LAB [facility] (test code = 10600-2) MARGARITA (test code = MARGARITA) Negative results do not preclude SARS-CoV-2 infection [...] of the Act. Fact Sheet for Healthcare Providers:https://www.Jobfox/Documents/Xpert%20Xpress %20SARS%20CoV-2/Fact%20Sheets /302-3802%59NSSL-JRM-0%20HEAL THCARE%20PROVIDERS%20FACT%20S HEET.pdf Fact Sheet for Healthcare Patients:https://www.Crelow/Documents/Xpert%20Xpress% 20SARS%20CoV-2/Fact%20Sheets/ 302-3801%70GLQJ-URD-9%20PATIE NT%20FACT%20SHEET.pdf Performing Laboratory:[facility] [place] [address] [facility] & REF LABS)2020-02-12 19:30:00 Test Item Value Reference Range Interpretation Comments SARS-COV2/RT-PCR (test Not Detected Not Detected, Negative code = 1505049) SARS-COV-2 PERFORMING LAB [facility] (test code = 6126488) Negative results do not preclude SARS-CoV-2 infection [...] of the Act.Fact Sheet for Healthcare Pro viders:https://www.[employer] Team Products/Documents/Xpert%20Xpress%20SARS%20CoV-2/Fact%20Sh eets/3023802%46IHUJ-PEQ-4%20HEALTHCARE%20PROVIDERS%20FACT%20SHEET.pdfFact Sheet for Healthcare Patients:https://www.Dragon Ports/Documents/Xpert%20Xpress%20SARS%20CoV-2/Fact%20Sheets/302-3801%20SARS-COV -2%20PATIENT%20FACT%20SHEET.pdfPerforming Laboratory:[facility] [place], [place] [address]Cnkvwnmr [id number] 18:17:00 Test Item Value Reference Range Interpretation Comments Troponin I (test code = <0.01 0-0.03 48992-4) MARGARITA (test code = MARGARITA) Troponin I (TnI) levels must be interpreted [...] failure, acidosis, acute neurological disease, and persistent tachyarrhythmia.Opera tor ID - ARIES E Lab Interpretation (test Normal code = 50037-9) [facility] [id number] 18:17:00 Test Item Value Reference Range Interpretation [...] failure, acidosis, acute neurological disease, and persistent tachyarrhythmia.Marketing Forecaster [employer] - ARIES EB-type Natriuretic Factor (BNP)2020-02-12 18:10:00 Test Item Value Reference Range Interpretation Comments BNP (test code = 61141-6) 18 pg/mL 0-100 MARGARITA (test code = MARGARITA) Marketing Forecaster ID - ARIES E Lab Interpretation (test Normal code = 82734-4) [facility] (BNP)2020-02-12 18:10:00 Test Item Value Reference Range Interpretation Comments B-TYPE NATRIURETIC PEPTIDE (BEAKER) 18 pg/mL 0-100 (test code = 700) Marketing Forecaster [employer] EBasic Metabolic [id number] 18:07:00 Test Item Value Reference Range Interpretation Comments Sodium (test code = 139 meq/L 531-585 8238-2) Potassium (test code 3.8 meq/L 3.5-5.1 = 2823-3) Chloride (test code = 106 meq/L 98-107 2075-0) CO2 (test code = 25 meq/L 22-29 2028-9) BUN (test code = 10 mg/dL 7-21 3094-0) Creatinine (test code 0.70 mg/dL 0.57-1.25 = 2160-0) Glucose (test code = 184 mg/dL 70-105 H 2345-7) Calcium (test code = 8.8 mg/dL 8.4-10.2 72888-9) EGFR (test code = 107 mL/min/1.73 sq m INSUFF ICIENT 94984-9) CLINICAL DATA T O CALCULATE ESTIMATED GFR. MARGARITA (test code = MARGARITA) Marketing Forecaster KRISTINA Hollingsworth Lab Interpretation Abnormal (test code = 66693-4) [facility]OLIC [id number] 18:07:00 Test Item Value Reference Range Interpretation [...] DATA TO CALCU LATE m ESTIMATED GFR. Marketing Forecaster KRISTINA HURD, CHEST, 2 [id number] 17:35:00Reason for exam:->WHEEZINGFINAL REPORT TECHNIQUE: Frontal and [...] an infectious/inflammatory processes versus pulmonary edemaSigned: Darshana Grigsby MDReport Verified Date/Time: 02/12/2020 17:35:52 Reading Location: [address] Reading Room XR chest 2 [id number] 17:35:00Interface, External Ris In - 02/12/2020 5:38 PM CDTFINAL REPORT TECHNIQUE: Frontal and lateral chest radiographs dated 02/12/2020. CLINICAL HISTORY: Wheezing COMPARISON STUDY: None FINDINGS: There are vague airspace opacities seen bilaterally. Differential diagnosis includes an infectious/inflammatory processes versus pulmonary edema. No pleural effusion or pneumothorax. Cardiomediastinal silhouette is normal in size. No pulmonary edema. Degenerative changes are seen in the spine. IMPRESSION: Vague airspace opacities seen bilaterally. Differential diagnosis includes an infectious/inflammatory processes versus pulmonary edema Signed: Darshana Grigsby MDReport Verified Date/Time: 02/12/2020 17:35:52 Reading Location: [address] Transitional Reading Room Electronicallysigned by: DARSHANA GRIGSBY MD on 02/12/2020 05:35 [facility] CBC with platelet count + automated [id number] 17:34:00 Test Item Value Reference Range Interpretation Comments WBC (test code = 6690-2) 19.8 3.5- 10.5 K/L H RBC (test code = 789-8) 5.14 3.93- 5.22 M/L MCHC (test code = 786-4) 32.2 32.2- 35.5 GM/DL Hematocrit (test code = 4544-3) 45.1 % 34.1-44.9 H MCV (test code = 787-2) 87.7 fL 79.4-94.8 MCH (test code = 785-6) 28.2 pg 25.6-32.2 RDW (test code = 788-0) 12.6 % 11.7-14.4 Platelets (test code = 777-3) 217 150- 450 K/CU MM MPV (test code = 01023-7) 10.8 fL 9.4-12.3 nRBC (test code = 413) 0 0- 0 /100 WBC % Neutros (test code = 429) 91 % % Lymphs (test code = 430) 5 % % Monos (test code = 431) 3 % % Eos (test code = 432) 0 % % Baso (test code = 437) 0 % # Neutros (test code = 670) 18.10 1.56- 6.13 K/L H # Lymphs (test code = 414) 0.90 1.18- 3.74 K/L L # Monos (test code = 415) 0.62 0.24- 0.36 K/L H # Eos (test code = 416) 0.02 0.04- 0.36 K/L L # Baso (test code = 417) 0.05 0.01- 0.08 K/L Immature Granulocytes-Relative 1 % 0-1 (test code = 2801) Lab Interpretation (test code = Abnormal 68077-4) [facility] W/PLT COUNT & AUTO [id number] 17:34:00 Test Item Value Reference Range Interpretation [...] PERCENT (BEAKER) (test code = 2801) CHEM [id number] 22:38:0095[facility] BMTZH6550-11-76 22:38:0013 [facility]annCHE[facility] [id number] 22:38:0010[facility]annCHEM PANEL 2017-02-27 22:38:000.74[facility]annCHEM RTETZ4889-30-28 22:38:0028[facility]annCHE[facility] ZBTDQ3396-50-43 22:38:003.6[facility]annCHE[facility] MLIAV0537-65-77 22:38:0081[facility]annCHEM QVPEL6323-91-50 22:38:52755Xewrodms HermannCHEM FFENQ9089-01-73 22:38:000.3[facility]annCHEM LNTXM4356-81-49 22:38:40927 [facility] DZWYB0250-52-23 22:38:007.9[facility]annCHEM PANEL 2017-02-27 22:38:008.9[facility]annCHEM YFBYH7074-89-62 22:38:89873Cdyjmjxx HermannCHEM UZBSK4657-21-24 22:38:003.9[facility]annCHEM VUFLM4187-72-68 22:38:0029[facility]annCHEM DEXAH2338-67-33 22:38:000.8[facility]annCHEM XWNLW3490-40-34 22:38:0010.9[facility]annCHEM RTESC0270-05-14 22:38:004.3 [facility]annCHE[facility] WCZCH6072-90-75 22:38:0014[facility]annCHEM PANEL 2017-02-27 22:38:77587Tregwuen QfbpxeyIDUFHJYQLYEWX0763-04-77 22:38:001[facility] MtijkgvIRXJYOGFDW4836-84-43 22:38:0064.7[facility] ByiewhpKHWIPQZDBQ0262-84-87 22:38:002.9[facility] PaivuctXVCRHQDUEM7133-25-69 22:38:000.1[facility] OJHKNPWJHC7082-14-41 22:38:000.4[facility] FspemmzMUSAHFKCOS3212-11-28 22:38:000.9 [facility] SmvzdmnOWNLWCMOJY7090-86-95 22:38:007.8[facility] HermannHEMATOLOGY 2017-02-27 22:38:003.2[facility] ZfsqcwqCISUANDULV0738-05-52 22:38:007.4[facility] NaxsjcmIJACQVVOVW9374-64-73 22:38:0024.1[facility] TcknilvXUJPIINNBL3327-53-87 22:38:000.6[facility] KniukdnMGQKCITQZD4122-57-34 22:38:0040.4[facility] Srini TGYHNSUMJM8813-24-43 22:38:0013.9[facility] DcyyoelTMBEISPGFG1864-18-66 22:38:00 4.61[facility] WulbbwiABDDZZWEHA2215-77-98 22:38:0012.0[facility] HermannHEMATOLOGY 2017-02-27 22:38:008.1[facility] XoampoqUAOVQVRWRJ7426-69-95 22:38:0013.9[facility] YhjlixbIEODXHKBKB2995-96-22 22:38:43236Dzrvbcki VrqwpisNAEEUZEIWY5910-65-77 22:38:0034.5[facility] CchmkhuKUHYBBEWKO8676-82-00 22:38:00 Test Item Value Reference Range Interpretation Comments MCH (test code = MCH) 30.2 pg 27.0-31.0 [facility] EhmqzofTSCZVOESWO8220-02-77 22:38:0087.5[facility]annURINE AND STOOL 2017-02-27 22:29:00See Note (02/27/17 5:29 PM)[facility] STOOL 2017-02-27 22:29:00Moderate *ABN*(02/27/17 5:29 PM)[facility] JZOTT2455-51-11 22:29:004.0[facility] IBXLQ7135-44-41 22:29:00See Note 1(02/27/17 5:29 PM)[facility] FANWF8478-61-80 22:29:00 Negative *NA*(02/27/17 5:29 PM)[facility] MSWPG6144-56-10 22:29:00 See Note (02/27/17 5:29 PM)[facility] [id number] 22:29:00 Large *ABN*(02/27/17 5:29 PM)[facility] EOUJB4768-66-01 22:29:00 Slight Cloudy (02/27/17 5:29 PM)[facility] LRMAK5463-62-81 22:29:00>=1.030 *ABN*(02/27/17 5:29 PM)[facility] STOOL 2017-02-27 22:29:00 Test Item Value Reference Range Interpretation Comments UA pH (test code = UA pH) 5.5 1 5.0-8.0 [facility] [id number] 22:29:00Orange *ABN*(02/27/17 5:29 PM) [facility] [id number] 22:29:00Negative (02/27/17 5:29 PM)[facility] GbahichZobebdzvi6817-77-15 16:20:005.5[facility] RkfzibpNosnmnmrg6969-13-11 16:20:12238Kydiesdy MmbetyhPkyfbauwd9445-81-62 16:20:67313Ouptbhbl Srini Incydjatw6154-47-59 16:20:0036[facility] GvqugujCneytggke2693-06-22 16:20:0090 [facility] EtccjwgLaaimpzla5137-46-96 15:30:57276Hdwhdoek HermannChemistry 2014-01-17 15:30:80152Scyyfzke YzkmjtaVvwagaypj1725-67-33 15:30:0031[facility] FjfpuhaEpihngxjg6085-12-82 15:30:00See Note mg/dLMemorial HermannChemistry 2014-01-17 15:30:57783 MEQ/LMemorial LblvlfrZbgmogkoy3242-14-23 15:30:004.6 MEQ/LMemorial YtehevxNdhdmzbmj9324-40-92 15:30:000.7[facility] HermannChemistry 2014-01-17 15:30:0015[facility] WryaswoMfibdovgd8333-54-49 15:30:00 Test Item Value Reference Range Interpretation Comments BUN/CREAT (test code = BUN/CREAT) 21 1 03-13 [facility] FketvuzHmavazvqu9117-23-45 15:30:004.3[facility] HermannChemistry 2014-01-17 15:30:009.0[facility] YeybqfjPjqcvmeju1983-90-25 15:30:0030[facility] RobbsdrVduuvinds0165-75-19 15:30:0012[facility] PciiemaBtxscpfxz2028-36-12 15:30:0073[facility] OneodcgXeqldgqpx2741-06-94 15:30:001.680[facility] Srini Tuegqlvjm0350-59-57 15:30:43817Hovcydtt TujotsmCajywoalo0106-83-65 15:30:47200 [facility] UcrktcfLvsvkpxfj6395-42-23 15:30:0031[facility]annChemistry 2014-01-17 15:30:00See Note mg/dLMemorial PghurrcUxoaubhqy9531-69-73 15:30:20794 MEQ/LMemorial CcrvcvrPwntqltkd9828-51-75 15:30:004.6 MEQ/LMemorial Perry Vxqavdknu0722-32-51 15:30:000.7[facility] ZrlxbwjSiqefxecy6570-33-26 15:30:0015 [facility] EzgtnohPrhmmuvyg7242-60-25 15:30:00 Test Item Value Reference Range Interpretation Comments BUN/CREAT (test code = BUN/CREAT) 21 1 6-25 [facility] EwzzxezUltdhlubk4016-55-95 15:30:004.3[facility] HermannChemistry 2014-01-17 15:30:009.0[facility] QqplkxdAhglchjpm6825-03-01 15:30:0030[facility] YzgeupgEljykynfl6961-70-87 15:30:0012[facility] XfwciruWsrevrwbh8919-94-29 15:30:0073[facility] AwkidijXqslrclok2200-09-72 15:30:001.680[facility] Xanpcmgguq9473-96-66 15:30:0014.9[facility] GttmhbfQjwyuhncrn3388-00-33 15:30:00 43.8[facility] PzheczpBaeueirhjo8779-52-81 15:30:27103 K/CMMMemorial Srini Gwfiphlefc9662-92-13 15:30:0014.9[facility]orial HdieqkxNqdjeztxyj6131-00-01 15:30:00 43.8[facility]orial KqvpfwfGpwljekobc1878-44-95 15:30:42329 K/CMMMemorial HermannOb/Railcar Foreman 2013-02-17 14:53:37CompleteMemorial HermannOb/Tba1096-48-61 14:53:37Complete Memorial UzliaaiYnhaxxvqk9434-36-36 14:53:37CompleteMemorial HermannPathology 2013-02-17 14:53:37CompleteMemorial Srini
[2020-03-09 08:24] LABS: Absolute Lymphocytes (CBC) 0.8 K/uL (0.7-4.9); Basophils % 0.5 % (0-1.3); Hematocrit 42.2 % (36.0-45.0); Lymphocytes % 9.1 % (15.3-44.8); MPV 9.4 fL (7.6-11.3); RBC Red Blood Cell Count 4.87 M/uL (3.86-4.86)
[2020-03-09 08:28] LABS: Protime INR 1.06
[2020-03-09 08:44] LABS: ALT/SGPT 37 U/L (12-78); AST/SGOT 22 U/L (15-37); Albumin 3.5 g/dL (3.4-5.0); Alkaline Phosphatase 72 U/L (45-117); BUN Blood Urea Nitrogen 14 mg/dL (7-18); Bicarbonate 25 mmol/L (21-32); Bilirubin Direct 0.1 mg/dL (0-0.2); Bilirubin Total 0.6 mg/dL (0.2-1.0); Glucose Level 233 mg/dL (74-106); NT PRO-BNP 34 pg/mL (<125); Potassium 3.7 mmol/L (3.5-5.1); Protein, Total 7.6 g/dL (6.4-8.2); Sodium Level 139 mmol/L (136-145); Troponin (Emerg Dept Use Only) < 0.02 ng/mL (0.0-0.045)
[2020-03-09] MEDS ORDERED: MORPHINE 2 MG/ML SYR ONE ×2 (08:44→10:17)
[2020-03-09] MEDS ORDERED: NA CHLORIDE 0.9% 1,000 ML ONE (08:44)
[2020-03-09] MEDS ORDERED: METHYLPREDNISOLONE 125 MG INJ ONE (08:44)
[2020-03-09] MEDS ORDERED: ONDANSETRON 4 MG/2 ML VIAL ONE (08:44)
[2020-03-09] MEDS ORDERED: DIPHENHYDRAMINE 50 MG/ML VIAL ONE (08:44)
--- NOTE | 2020-03-09 09:22 | RAD REPORT ---
EXAM DESCRIPTION: CT - Abdomen Pelvis Wo Contrast - 03/09/2020 9:04 am CLINICAL HISTORY: Abdominal pain COMPARISON: 01/2020 TECHNIQUE: Computed axial tomography of the abdomen and pelvis was obtained. IV and oral contrast we re not requested. All CT scans are performed using dose optimization technique as appropriate and may include automated exposure control or mA/KV adjustment according to patient size. FINDINGS: The evaluation of solid organs, vessels and bowel is limited secondary to the lack of con trast administration. The pancreatic body is enlarged. Mild stranding within the adjacent fat. Peripancreatic lymph nodes a re noted. Soft tissue surrounds the celiac artery. The , spleen, adrenals and kidneys appear grossly normal. Equivocal vague low-density area right lobe liver The appendix is normal. Mild thickening of the wall of portions of the left colon. Mild stranding adjacent to a diverticulum lower descending colon IMPRESSION: Fullness in the pancreatic body consistent with known pancreatic neoplasm. Peripancreati c lymphadenopathy. Mild soft tissue surrounds celiac artery. Mild descending colon diverticulitis Mild thickening of the wall of portions of the left colon may indicate a mild colitis Equivocal vague lesion right lobe liver
--- NOTE | 2020-03-09 09:23 | RAD REPORT ---
EXAM DESCRIPTION: Leslie Single View03/09/2020 8:27 am CLINICAL HISTORY: Chest pain COMPARISON: January 2020 FINDINGS: The lungs appear clear of acute infiltrate. The heart is normal size IMPRESSION: No acute abnormalities displayed
--- NOTE | 2020-03-09 10:01 | EDPHYS ---
Physician Documentation [facility] Name: Kelley Ordaz Age: 49 yrs Sex: Female : 1970 Arrival Date: 03/09/2020 Time: 07:58 Bed 6 Private MD: Edvin Perez B ED Physician Servando Martinez HPI: 03/09 09:58 This 49 yrs old Female presents to ER via Ambulatory with complaints of Chest ma2 Pain. 09:58 The patient or guardian reports chest pain that is located primarily in the substernal ma2 area. Onset: suddenly, 1 day(s) ago. Associated signs and symptoms: Pertinent negatives: cough, headache, lower extremity swelling, nausea. Severity of pain: At its worst the pain was moderate in the emergency department the pain is unchanged. The patient has not experienced similar symptoms in the past. Historical: - Allergies: 08:10 Iodine (Respiratory distress); ss - PMHx: 08:10 CAD; Depression; Diabetes - IDDM; Diverticulitis; High Cholesterol; Hypertension; ss Myocardial infarction; Pancreatitis; - PSHx: 08:10 Carpal Tunnel Repair; D \T\ C; Tubal ligation; Heart stents; TURP; ss - Immunization history:: Adult Immunizations up to date. - Social history:: Smoking status: Patient reports the use of cigarette tobacco products, smokes one pack cigarettes per day. Patient/guardian denies using alcohol, street drugs, The patient lives with family. - Family history:: not pertinent. ROS: 09:58 Constitutional: Negative for fever, chills, and weight loss. ma2 09:58 All other systems are negative. Exam: 09:58 Constitutional: This is a well developed, well nourished patient who is awake, alert, ma2 and in no acute distress. Chest/axilla: Normal chest wall appearance and motion. Nontender with no deformity. No lesions are appreciated. Cardiovascular: Regular rate and rhythm with a normal S1 and S2. No gallops, murmurs, or rubs. Normal PMI, no JVD. No pulse deficits. Respiratory: Lungs have equal breath sounds bilaterally, clear to auscultation and percussion. No rales, rhonchi or wheezes noted. No increased work of breathing, no retractions or nasal flaring. Back: No spinal tenderness. No costovertebral tenderness. Full range of motion. MS/ Extremity: Pulses equal, no cyanosis. Neurovascular intact. Full, normal range of motion. Neuro: Awake and alert, GCS 15, oriented to person, place, time, and situation. Cranial nerves II-XII grossly intact. Motor strength 5/5 in all extremities. Sensory grossly intact. Cerebellar exam normal. Normal gait. 09:58 Abdomen/GI: Inspection: abdomen appears normal, Palpation: moderate abdominal tenderness, in the left lower quadrant, Rectal exam: Indicators: Liver: no appreciated palpable abnormalities, Hernia: not appreciated. Vital Signs: 08:03 Resp 16; Temp 97.0(TE); Weight 105.23 kg; Height 5 ft. 6 in. (167.64 cm); ss 08:14 BP 155 / 86; Pulse 97; sv 08:34 BP 114 / 84; Pulse 95; Resp 16; Pulse Ox 98% ; sv 09:13 BP 128 / 59; Pulse 78; Resp 16; Pulse Ox 100% ; sv 10:30 BP 118 / 62; Pulse 77; Resp 16; Pulse Ox 99% ; sv 10:51 Pain 3/10; sv 08:03 Body Mass Index 37.45 (105.23 kg, 167.64 cm) ss MDM: 08:00 Patient medically screened. [facility] 09:58 Differential diagnosis: esophagitis, gastritis, gastroesophageal reflux disease (GERD), ma2 pleurisy, stable angina. The patient's deep vein thrombosis risk score was calculated as follows:. The patient's pulmonary embolism risk score was calculated as follows: malignancy Total Score: 0-2 points. This patient was found to be at low risk for a pulmonary embolism by using the Well's assessment criteria. The patient's pulmonary embolism risk score was calculated as follows:. PADMINI Risk Score: 1 - Three or more CAD risk factors, 1 - ASA use in past 7 days. Data reviewed: vital signs, nurses notes. Counseling: I had a detailed discussion with the patient and/or guardian regarding: the historical points, exam findings, and any diagnostic results supporting the discharge/admit diagnosis, the presence of at least one elevated blood pressure reading (>120/80) during this emergency department visit, the need for further work-up and treatment in the hospital. 03/09 08:01 Order name: Basic Metabolic Panel ma2 03/09 08:01 Order name: CBC with Diff ma2 03/09 08:01 Order name: LFT's; Complete Time: 09:43 ma2 03/09 08:01 Order name: Magnesium; Complete Time: 09:43 ma2 03/09 08:01 Order name: NT PRO-BNP; Complete Time: 09:43 ma2 03/09 08:01 Order name: PT-INR; Complete Time: 08:30 ma2 03/09 08:01 Order name: Troponin (emerg Dept Use Only); Complete Time: 09:43 ma2 03/09 08:01 Order name: XRAY Chest (1 view); Complete Time: 09:43 ma2 03/09 08:02 Order name: Basic Metabolic Panel; Complete Time: 09:43 EDMS 03/09 08:02 Order name: CBC with Automated Diff; Complete Time: 08:30 EDMS 03/09 08:30 Order name: Lipase; Complete Time: 09:43 ma2 03/09 08:57 Order name: Abdomen ; Complete Time: 09:43 EDMS 03/09 08:01 Order name: EKG; Complete Time: 08:03 2 03/09 08:01 Order name: Cardiac monitoring; Complete Time: 08:18 ma2 03/09 08:01 Order name: EKG - Nurse/Tech; Complete Time: 08:18 ma2 03/09 08:01 Order name: IV Saline Lock; Complete Time: 08:18 ma2 03/09 08:01 Order name: Labs collected and sent; Complete Time: 08:18 ma2 03/09 08:01 Order name: O2 Per Protocol; Complete Time: 08:12 ma2 03/09 08:01 Order name: O2 Sat Monitoring; Complete Time: 08:12 ma2 Administered Medications: 08:40 Drug: NS 0.9% 1000 ml Route: IV; Rate: 1 bolus; Site: right hand; sv 10:51 Follow up: Response: No adverse reaction; IV Status: Completed infusion; IV Intake: sv 1000ml 08:40 Drug: Zofran (Ondansetron) 4 mg Route: IVP; Site: right hand; sv 09:11 Follow up: Response: No adverse reaction sv 08:42 Drug: morphine 2 mg {Note: rass0.} Route: IVP; Site: right hand; sv 08:44 Drug: Benadryl 50 mg Route: IVP; Site: right hand; sv 09:10 Follow up: Response: No adverse reaction sv 08:46 Drug: MethylPrednisoLONE 125 mg Route: IVP; Site: right hand; sv 09:10 Follow up: Response: No adverse reaction sv 10:08 Drug: morphine 2 mg {Note: rass1.} Route: IVP; Site: right hand; sv 10:51 Follow up: Pain 3/10 Adult; Response: No adverse reaction; Marked relief of symptoms; sv Pain is decreased; RASS: Drowsy (-1) 10:10 Drug: Rocephin 1 grams Route: IV; Rate: calculated rate; Site: right hand; sv 10:13 Follow up: Response: No adverse reaction; IV Status: Completed infusion; IV Intake: 10mlsv 10:15 Drug: Flagyl 500 mg Volume: 100 ml; Route: IVPB; Rate: 200 ml/hr; Infused Over: 30 sv mins; Site: right hand; 10:51 Follow up: Response: No adverse reaction; IV Status: Infusion continued upon admission sv Disposition: 03/09/20 10:01 Hospitalization ordered by Prince Ivanna for Observation. Preliminary diagnosis is Chest pain, unspecified. - Bed requested for Telemetry/MedSurg (observation). - Status is Observation. sv - Condition is Stable. - Problem is new. - Symptoms are unchanged. Signatures: Dispatcher [employer] EDOR Mayra German RN RN sv Martinez, Eric em1 Shantal Le RN RN ss Alzahri, Mohammad, MD MD ma2 Corrections: (The following items were deleted from the chart) 08:57 08:31 Abdomen Pelvis W Con+CT.RAD.BRZ ordered. EDOR EDMS 10:38 10:01 Hospitalization Ordered by Prince Ivanna WATSON for Observation. Preliminary em1 diagnosis is Chest pain, unspecified. Bed requested for Telemetry/MedSurg (observation). Status is Observation. Condition is Stable. Problem is new. Symptoms are unchanged. ma2 10:59 10:38 03/09/2020 10:01 Hospitalization Ordered by Prince Ivanna WATSON for Observation. sv Preliminary diagnosis is Chest pain, unspecified. Bed requested for Telemetry/MedSurg (observation). Status is Observation. Condition is Stable. Problem is new. Symptoms are unchanged. em1
--- NOTE | 2020-03-09 10:01 | ER ---
Nurse's Notes [facility] Name: Kelley Ordaz Age: 49 yrs Sex: Female : 1970 Arrival Date: 03/09/2020 Time: 07:58 Bed 6 Private MD: Edvin Perez B Diagnosis: Chest pain, unspecified Presentation: 03/09 08:03 Chief complaint: Patient states: Chest pain that began 30 minutes ago. Diarrhea that ss began last night, but now has blood in it. Pt recently had her first chemo infusion for pancreatic CA. Coronavirus screen: Patient denies a cough. Patient denies shortness of breath or difficulty breathing. Patient denies measured and/or subjective temperature greater than 100.4F prior to today's visit. Patient denies travel on a cruise ship or to a country the [facility] currently lists as an affected area. Patient denies contact with known and/or suspected case of COVID-19. Ebola Screen: Patient denies exposure to infectious person. Patient denies travel to an Ebola-affected area in the 21 days before illness onset. Initial Sepsis Screen: Does the patient meet any 2 criteria? No. Patient's initial sepsis screen is negative. Does the patient have a suspected source of infection? No. Patient's initial sepsis screen is negative. Risk Assessment: Do you want to hurt yourself or someone else? Patient reports no desire to harm self or others. Onset of symptoms was March 08, 2020. 08:03 Method Of Arrival: Ambulatory ss 08:03 Acuity: DEJUAN 3 ss Historical: - Allergies: 08:10 Iodine (Respiratory distress); ss - PMHx: 08:10 CAD; Depression; Diabetes - IDDM; Diverticulitis; High Cholesterol; Hypertension; ss Myocardial infarction; Pancreatitis; - PSHx: 08:10 Carpal Tunnel Repair; D \T\ C; Tubal ligation; Heart stents; TURP; ss - Immunization history:: Adult Immunizations up to date. - Social history:: Smoking status: Patient reports the use of cigarette tobacco products, smokes one pack cigarettes per day. Patient/guardian denies using alcohol, street drugs, The patient lives with family. - Family history:: not pertinent. Screenin:03 Abuse screen: Denies threats or abuse. Denies injuries from another. Nutritional ph screening: No deficits noted. Tuberculosis screening: No symptoms or risk factors identified. Fall Risk None identified. Assessment: 08:00 General: Appears in no apparent distress. uncomfortable, well developed, Behavior is sv calm, cooperative, appropriate for age. Pain: Complains of pain in chest Pain does not radiate. Pain currently is 5 out of 10 on a pain scale. Pain began 1 day ago. Neuro: Level of Consciousness is awake, alert, obeys commands, Oriented to person, place, time, situation, Moves all extremities. Full function Gait is steady. Cardiovascular: Rhythm is sinus rhythm. Respiratory: Airway is patent Respiratory effort is even, unlabored, Respiratory pattern is regular, symmetrical. GI: Reports bloody stool. Derm: Skin is pink, warm \T\ dry. 08:40 Reassessment: Patient appears in no apparent distress at this time. No changes from sv previously documented assessment. Patient and/or family updated on plan of care and expected duration. Pain level reassessed. Patient is alert, oriented x 3, equal unlabored respirations, skin warm/dry/pink. 09:47 Reassessment: Dr Martinez at bedside discussing results. sv 10:08 Reassessment: Patient appears in no apparent distress at this time. Patient and/or sv family updated on plan of care and expected duration. Pain level reassessed. Patient is alert, oriented x 3, equal unlabored respirations, skin warm/dry/pink. c/o abd pain returning. 10:50 Reassessment: Patient appears in no apparent distress at this time. Patient and/or sv family updated on plan of care and expected duration. Pain level reassessed. Patient is alert, oriented x 3, equal unlabored respirations, skin warm/dry/pink. Patient states feeling better. Patient states symptoms have improved. Vital Signs: 08:03 Resp 16; Temp 97.0(TE); Weight 105.23 kg; Height 5 ft. 6 in. (167.64 cm); ss 08:14 BP 155 / 86; Pulse 97; sv 08:34 BP 114 / 84; Pulse 95; Resp 16; Pulse Ox 98% ; sv 09:13 BP 128 / 59; Pulse 78; Resp 16; Pulse Ox 100% ; sv 10:30 BP 118 / 62; Pulse 77; Resp 16; Pulse Ox 99% ; sv 10:51 Pain 3/10; sv 08:03 Body Mass Index 37.45 (105.23 kg, 167.64 cm) ss ED Course: 07:58 Patient arrived in ED. as 07:59 Edvin Perez MD is Private Physician. as 08:00 Servando Martinez MD is Attending Physician. ma2 08:00 EKG done, by ED staff, reviewed by Servando Martinez MD. sv 08:04 Patient has correct armband on for positive identification. Placed in gown. Bed in low ph position. Call light in reach. Side rails up X 1. patient monitor on. Pulse ox on. NIBP on. Door closed. Noise minimized. Warm blanket given. Head of bed elevated. 08:04 Patient maintains SpO2 saturation greater than 95% on room air. ph 08:08 Triage completed. ss 08:10 Arm band placed on right wrist. ss 08:10 Initial lab(s) drawn, by me, sent to lab. Inserted saline lock: 22 gauge in right hand, ph using aseptic technique. Blood collected. 08:15 X-ray(s) taken. sv 08:17 Mayra German, RN is Primary Nurse. sv 08:18 Basic Metabolic Panel Sent. sv 08:18 CBC with Diff Sent. sv 08:18 XRAY Chest (1 view) Sent. sv 08:28 XRAY Chest (1 view) In Process Unspecified. EDMS 09:04 Abdomen In Process Unspecified. EDMS 09:04 CT completed. Patient tolerated procedure well. Patient moved back from CT. bq 09:09 Patient [address] back from [address]. sv 09:10 Awaiting lab results, Awaiting radiology results. sv 10:00 Prince Goncalves MD is Hospitalizing Provider. ma2 10:50 No provider procedures requiring assistance completed. Patient admitted, IV remains in sv place. intact. Administered Medications: 08:40 Drug: NS 0.9% 1000 ml Route: IV; Rate: 1 bolus; Site: right hand; sv 10:51 Follow up: Response: No adverse reaction; IV Status: Completed infusion; IV Intake: sv 1000ml 08:40 Drug: Zofran (Ondansetron) 4 mg Route: IVP; Site: right hand; sv 09:11 Follow up: Response: No adverse reaction sv 08:42 Drug: morphine 2 mg {Note: rass0.} Route: IVP; Site: right hand; sv 08:44 Drug: Benadryl 50 mg Route: IVP; Site: right hand; sv 09:10 Follow up: Response: No adverse reaction sv 08:46 Drug: MethylPrednisoLONE 125 mg Route: IVP; Site: right hand; sv 09:10 Follow up: Response: No adverse reaction sv 10:08 Drug: morphine 2 mg {Note: rass1.} Route: IVP; Site: right hand; sv 10:51 Follow up: Pain 3/10 Adult; Response: No adverse reaction; Marked relief of symptoms; sv Pain is decreased; RASS: Drowsy (-1) 10:10 Drug: Rocephin 1 grams Route: IV; Rate: calculated rate; Site: right hand; sv 10:13 Follow up: Response: No adverse reaction; IV Status: Completed infusion; IV Intake: 10mlsv 10:15 Drug: Flagyl 500 mg Volume: 100 ml; Route: IVPB; Rate: 200 ml/hr; Infused Over: 30 sv mins; Site: right hand; 10:51 Follow up: Response: No adverse reaction; IV Status: Infusion continued upon admission sv Intake: 10:13 IV: 10ml; Total: 10ml. sv 10:51 IV: 1000ml; Total: 1010ml. sv Outcome: 10:01 Decision to Hospitalize by Provider. ma2 10:50 Admitted to Tele accompanied by tech, via wheelchair, room 213, with chart, Report sv called to Matthew ALEX 10:50 Condition: stable 10:50 Instructed on the need for admit. 10:59 Patient left the ED. sv Signatures: Dispatcher [employer] Mayra Boykin RN RN sv Quilty, Betty bq Martinez, Amelia as Smirch, Shelby, RN RN Charlene Rcoa RN RN Servando Martinez MD MD ma2 Corrections: (The following items were deleted from the chart) 08:49 08:42 morphine 4 mg IVP in right hand sv sv
[2020-03-09] MEDS ORDERED: METRONIDAZOLE 500mg IVPB 500 MG/100 ML BAG IV ONE (10:14)
[2020-03-09] MEDS ORDERED: CEFTRIAXONE/SWI 1gm 1 GM/10 ML SYR ONE (10:14)
[2020-03-09 11:37] VITALS: BMI 37.4
[2020-03-09 11:43] LABS: Absolute Lymphocytes (CBC) 0.4 K/uL (0.7-4.9); Basophils % 0.2 % (0-1.3); Lymphocytes % 5.5 % (15.3-44.8); MPV 9.5 fL (7.6-11.3); RBC Red Blood Cell Count 4.72 M/uL (3.86-4.86)
[2020-03-09 11:56] LABS: HDL Cholesterol 39 mg/dL (40-60); LDL Cholesterol, Calculated 76 (<130); Troponin I < 0.02 ng/mL (0.0-0.045)
--- NOTE | 2020-03-09 12:28 | P.HP ---
Certification for Inpatient Patient admitted to: Observation With expected LOS: <2 Midnights Practitioner: I am a practitioner with admitting privileges, knowledge of patient current condition, hospital course, and medical plan of care. Services: Services provided to patient in accordance with Admission requirements found in Title 42 Section 412.3 of the Code of Federal Regulations Patient History Date of Service: 03/09/20 Reason for admission: diarrhea History of Present Illness: Patient is a 49 year old female with a known PMH of locally advanced pancreatic cancer currently on Gemcitabine and abraxane last taken 3 days [employer], CAD S/P PCI last stent placed December 2018. She presents to the ER accompanied by for an acute episode of diarrhea. She has been having sudden onset of multiple diarrhea episodes for the past 12 hours. Her diarreha progressed from water to bloody. Associated symptoms include subjective fever, chills and night sweats, and lower abdominal pain. En route to the ER, she developed a substernal chest pain that resolved spontaneously. CT A/P in the ER showed colonic diverticulitis. Allergies Iodine Allergy (Uncoded 07/02/19 03:25) Shortness of breath Home medications list reviewed: Yes Home Medications: Aspirin [Aspirin EC 81 MG] 1 tab PO BEDTIME 06/21/19 Atorvastatin Calcium [Lipitor] 80 mg PO BEDTIME 06/21/19 Cholecalciferol (Vitamin D3) [Vitamin D3] 1 cap PO SEECOM 06/21/19 Clopidogrel Bisulfate [Plavix*] 1 tab PO DAILY 06/21/19 Ezetimibe 1 tab PO BEDTIME 06/21/19 Metformin HCl [Metformin HCl ER] 1 tab PO BID 06/21/19 Metoprolol Tartrate 1 tab PO BID 06/21/19 Pregabalin 1 cap PO DAILY 06/21/19 Amlodipine Bes/Olmesartan Med [Amlodipine-Olmesartan 5-40 mg] 1 each PO DAILY 07/02/19 Evolocumab [Repatha Sureclick] 1 ml SQ SEECOM 01/23/20 Insulin Aspart [Novolog Flexpen] 25 units SQ TID 01/23/20 Insulin Degludec [Tresiba Flextouch U-200] 60 units SQ BEDTIME 01/23/20 Icosapent Ethyl [Vascepa 1 gm Cap] 2 gm PO BID #120 cap 01/24/20 Aripiprazole [Abilify] 7.5 mg PO DAILY 03/09/20 - Past Medical/Surgical History Has patient received pneumonia vaccine in the past: Yes Diabetic: No -: HTN -: Diabetes mellitus type insulin-dependent -: Hyperlipidemia -: CAD with prior stent -: Fatty liver -: Obesity -: Chronic pain -: carpal tunnel repair -: tubal ligation -: Cardiac stents Psychosocial/ Personal History: Patient is - Family History Father -: Other (see notes) Notes: Alzeimehrs, aneursym Mother -: Hypertension, Cancer Notes: breast, colon - Social History Smoking Status: Current every day smoker Alcohol use: No CD- Drugs: No Caffeine use: Yes Place of Residence: Home Physical Examination - Vital Signs Temperature: 97.0 F Blood Pressure: 128/59 Pulse: 78 Respirations: 16 - Physical Exam General: Oriented x3, Cooperative, Mild distress, Other (lethargic) HEENT: Atraumatic, Normocephalic, EOMI Neck: Supple, JVD not distended Respiratory: Clear to auscultation bilaterally, Normal air movement Cardiovascular: No edema, Normal pulses, Regular rate/rhythm, Normal S1 S2 Gastrointestinal: Normal bowel sounds, Soft and benign, Non-distended, Tenderness Musculoskeletal: No clubbing, No swelling, No contractures, No erythema, No tenderness, No warmth Integumentary: No rashes, No breakdown, No significant lesion, No tenderness/swe lling, No erythema, No warmth, No cyanosis Neurological: Normal speech, Sensation intact, Normal affect - Studies Laboratory Data (last 24 hrs) 03/09/20 08:10: Lipase 148 03/09/20 08:10: PT 12.5, INR 1.06 03/09/20 08:10: WBC 9.1 D, Hgb 14.2, Hct 42.2, Plt Count 172 D 03/09/20 08:10: Sodium 139, Potassium 3.7, BUN 14, Creatinine 0.60, Glucose 233 H, Magnesium 2.0, Total Bilirubin 0.6, AST 22, ALT 37, Alkaline Phosphatase 72 Assessment and Plan - Problems (Diagnosis) (1) Diverticulitis, colon Current Visit: Yes Status: Acute (2) Stented coronary artery Current Visit: Yes Status: Acute (3) Pancreatic cancer Current Visit: Yes Status: Acute (4) CAD (coronary artery disease) Current Visit: No Status: Acute (5) Obesity, morbid, BMI 40.0-49.9 Current Visit: No Status: Acute (6) Depression with anxiety Current Visit: No Status: Chronic (7) Diabetes mellitus Onset Date: 12/20/16 Current Visit: No Status: Chronic (8) Hyperlipidemia Current Visit: No Status: Chronic Qualifiers: - Plan Assessment Patient is a 49 year old female with a PMH of pancreatic cancer, on chemotherapy, CAD s/p PCI who is currently admitted with colonic diverticulitis. Chest pain on admission. Troponin negative x 2. Colonic diverticulitis Active pancreatic cancer, on Gemcitabine and Abraxane CAD S/P PCI last stent placed December 2018 Type II Diabetes mellitus Morbid obesity HTN Chest pain PLAN Admit under observation with telemetry Will keep NPO while on LR infusion Start levofloxacin and flagyl Follow up lactic acid Anti-emetics IV pantoprazole Add Nitroglycerin Trend troponin Resumed home cardioprotective agents (DAPT, statin) Discharge Plan: Home - Advance Directives Does patient have a Living Will: No Does patient have a Durable POA for Healthcare: No
[2020-03-09] MEDS ORDERED: SODIUM CHLORIDE 0.9% 10ML INJ IV PRN (12:44)
[2020-03-09] MEDS: ENOXAPARIN 40 MG/0.4 ML SQ SCH (12:59)
[2020-03-09] MEDS: PANTOPRAZOLE 40 MG INJ IVP SCH (12:59)
[2020-03-09] MEDS ORDERED: NITROGLYCERIN 0.4 MG/TAB SL ONE (13:00)
[2020-03-09] MEDS ORDERED: Levofloxacin 750mg IV 750 MG/150 ML BAG IV SCH (13:00)
[2020-03-09] MEDS: INSULIN -REGULAR HUMAN 50 UNIT/0.5 ML ML SQ SCH ×2 (13:00→17:46)
[2020-03-09] MEDS: Ringers Lactate 1,000 ML IV SCH ×2 (13:00→23:41)
[2020-03-09] MEDS: HYDROMORPHONE HCL 1 MG/ML INJ IV PRN ×3 (15:00→23:34)
[2020-03-09] MEDS ORDERED: HYDROCODONE/APAP 5/325 MG TAB PO PRN (16:17)
[2020-03-09] MEDS ORDERED: ONDANSETRON HCL PO PRN (16:17)
[2020-03-09] MEDS ORDERED: EVOLOCUMAB SQ SCH (16:30)
[2020-03-09] MEDS ORDERED: ONDANSETRON 4 MG (ODT) TAB PO PRN (17:05)
[2020-03-09] MEDS: METRONIDAZOLE 500mg IVPB 500 MG/100 ML BAG IV SCH (17:37)
[2020-03-09] MEDS: ONDANSETRON 4 MG/2 ML VIAL IV PRN (17:47)
[2020-03-09] MEDS ORDERED: D50W 25 GM/50 ML SYRINGE/VIAL IV PRN (19:23)
[2020-03-09] MEDS ORDERED: GLUCAGON 1 MG/VIAL IM PRN (19:23)
[2020-03-09] MEDS ORDERED: EZETIMIBE 10 MG TAB PO SCH (21:00)
[2020-03-09] MEDS ORDERED: HOME MED 1 EA UNK (Insulin Degludec [Tresiba Flextouch U-200] 60 UNITS) SQ SCH (21:00)
[2020-03-09] MEDS ORDERED: ATORVASTATIN 80 MG TAB PO SCH (21:00)
[2020-03-09] MEDS: METOPROLOL TAR 25 MG TAB PO SCH (21:10)
[2020-03-10] MEDS: METRONIDAZOLE 500mg IVPB 500 MG/100 ML BAG IV SCH ×2 (00:06→08:55)
[2020-03-10] MEDS: INSULIN -REGULAR HUMAN 50 UNIT/0.5 ML ML SQ SCH ×2 (00:51→06:00)
[2020-03-10] MEDS: HYDROMORPHONE HCL 1 MG/ML INJ IV PRN (03:27)
[2020-03-10] MEDS: ONDANSETRON 4 MG/2 ML VIAL IV PRN (04:34)
[2020-03-10] MEDS: ENOXAPARIN 40 MG/0.4 ML SQ SCH (08:55)
[2020-03-10] MEDS: PANTOPRAZOLE 40 MG INJ IVP SCH (08:55)
[2020-03-10] MEDS: METOPROLOL TAR 25 MG TAB PO SCH (08:56)
[2020-03-10] MEDS: Ringers Lactate 1,000 ML IV SCH (09:00)
[2020-03-10] MEDS ORDERED: AMLODIPINE 5 MG TAB PO SCH (09:00)
[2020-03-10] MEDS ORDERED: [UNRECOGNIZED DRUG - OTHER] PO SCH (09:00)
[2020-03-10] MEDS ORDERED: AMLODIPINE BES PO SCH (09:00)
[2020-03-10] MEDS ORDERED: PREGABALIN 75 MG CAP PO SCH (09:00)
[2020-03-10] MEDS ORDERED: ASPIRIN EC 81 MG TAB PO SCH (09:00)
[2020-03-10] MEDS ORDERED: OLMESARTAN MED PO SCH (09:00)
[2020-03-10] MEDS ORDERED: VALSARTAN 160 MG TAB PO SCH (09:00)
[2020-03-10] MEDS ORDERED: ARIPiprazole 5 MG TAB PO SCH (09:00)
[2020-03-10] MEDS ORDERED: ARIPIPRAZOLE 7.5 MG PO SCH (09:00)
--- NOTE | 2020-03-10 09:54 | P.DS ---
Admission Date: 03/09/20 Discharge Date: 03/10/20 Disposition: ROUTINE DISCHARGE Discharge Condition: GOOD Reason for Admission: diarrhea - Problems (1) Diverticulitis, colon Current Visit: Yes Status: Acute (2) Stented coronary artery Current Visit: Yes Status: Acute (3) Pancreatic cancer Current Visit: Yes Status: Acute (4) CAD (coronary artery disease) Current Visit: No Status: Acute (5) Obesity, morbid, BMI 40.0-49.9 Current Visit: No Status: Acute (6) Depression with anxiety Current Visit: No Status: Chronic (7) Diabetes mellitus Onset Date: 12/20/16 Current Visit: No Status: Chronic (8) Hyperlipidemia Current Visit: No Status: Chronic Qualifiers: Brief History of Present Illness: Patient is a 49 year old female with a known PMH of locally advanced pancreatic cancer currently on Gemcitabine and abraxane last taken 3 days [employer], CAD S/P PCI last stent placed December 2018. She presents to the ER accompanied by for an acute episode of diarrhea. She has been having sudden onset of multiple diarrhea episodes for the past 12 hours. Her diarreha progressed from water to bloody. Associated symptoms include subjective fever, chills and night sweats, and lower abdominal pain. En route to the ER, she developed a substernal chest pain that resolved spontaneously. CT A/P in the ER showed colonic diverticulitis. Hospital Course: The stay the hospital for management of uncomplicated diverticulitis. S responded to conservative treatment which included IV fluid infusion, antibiotics and anti emetics. Her diet was advanced on the day of discharge and she tolerated well. She will be discharged on a 5 day course of levofloxacin and Flagyl Vital Signs/Physical Exam: Temp Pulse Resp BP Pulse Ox 97.5 F 64 18 141/65 H 98 03/10/20 04:00 03/10/20 04:00 03/10/20 04:00 03/10/20 04:00 03/10/20 04:00 General: Alert, In no apparent distress, Cooperative HEENT: Atraumatic, Normocephalic, EOMI Neck: Supple, Without JVD or thyroid abnormality Respiratory: Clear to auscultation bilaterally, Normal air movement Cardiovascular: No edema, Normal pulses, Regular rate/rhythm, Normal S1 S2 Gastrointestinal: Normal bowel sounds, Soft and benign, Non-distended, No tenderness Musculoskeletal: No clubbing, No swelling, No contractures, No erythema, No tenderness, No warmth Integumentary: No rashes, No breakdown, No significant lesion, No tenderness/swelling, No erythema, No warmth, No cyanosis Neurological: Normal speech, Sensation intact, Normal affect Laboratory Data at Discharge: WBC 7.3 K/uL (4.3-10.9) D 03/09/20 11:31 Hgb 13.7 g/dL (12.0-15.0) 03/09/20 11:31 Hct 41.0 % (36.0-45.0) 03/09/20 11:31 Plt Count 160 K/uL (152-406) 03/09/20 11:31 PT 12.5 SECONDS (9.5-12.5) 03/09/20 08:10 INR 1.06 03/09/20 08:10 Sodium 139 mmol/L (136-145) 03/09/20 08:10 Potassium 3.7 mmol/L (3.5-5.1) 03/09/20 08:10 BUN 14 mg/dL (7-18) 03/09/20 08:10 Creatinine 0.60 mg/dL (0.55-1.3) 03/09/20 08:10 Glucose 233 mg/dL (74-106) H 03/09/20 08:10 Magnesium 2.0 mg/dL (1.8-2.4) 03/09/20 08:10 Total Bilirubin 0.6 mg/dL (0.2-1.0) 03/09/20 08:10 AST 22 U/L (15-37) 03/09/20 08:10 ALT 37 U/L (12-78) 03/09/20 08:10 Alkaline Phosphatase 72 U/L (45-117) 03/09/20 08:10 Troponin I < 0.02 ng/mL (0.0-0.045) 03/10/20 03:09 Triglycerides 159 mg/dL (<150) H 03/09/20 11:31 Cholesterol 147 mg/dL (<200) 03/09/20 11:31 HDL Cholesterol 39 mg/dL (40-60) L 03/09/20 11:31 Cholesterol/HDL Ratio 3.77 03/09/20 11:31 Lipase 148 U/L (73-393) 03/09/20 08:10 Home Medications: Aspirin [Aspirin EC 81 MG] 1 tab PO BEDTIME 06/21/19 Atorvastatin Calcium [Lipitor] 80 mg PO BEDTIME 06/21/19 Cholecalciferol (Vitamin D3) [Vitamin D3] 1 cap PO SEECOM 06/21/19 Clopidogrel Bisulfate [Plavix*] 1 tab PO DAILY 06/21/19 Ezetimibe 1 tab PO BEDTIME 06/21/19 Metformin HCl [Metformin HCl ER] 1 tab PO BID 06/21/19 Metoprolol Tartrate 1 tab PO BID 06/21/19 Pregabalin 1 cap PO DAILY 06/21/19 Amlodipine Bes/Olmesartan Med [Amlodipine-Olmesartan 5-40 mg] 1 each PO DAILY 07/02/19 Evolocumab [Repatha Sureclick] 1 ml SQ SEECOM 01/23/20 Insulin Aspart [Novolog Flexpen] 25 units SQ TID 01/23/20 Insulin Degludec [Tresiba Flextouch U-200] 60 units SQ BEDTIME 01/23/20 Icosapent Ethyl [Vascepa 1 gm Cap] 2 gm PO BID #120 cap 01/24/20 Aripiprazole [Abilify] 7.5 mg PO DAILY 03/09/20 Hydrocodone 5/APAP 325 [[place] 5/325*] 1 tab PO Q8H PRN 03/09/20 Ondansetron HCl [Zofran] 1 tab PO Q4H PRN 03/09/20 ARIPiprazole [Abilify*] 7.5 mg PO DAILY tab 03/10/20 Atorvastatin Calcium [Lipitor] 80 mg PO BEDTIME tab 03/10/20 levoFLOXacin [Levaquin*] 750 mg PO DAILY #5 tab 03/10/20 metroNIDAZOLE [Flagyl] 500 mg PO Q8H 5 Days #15 tablet 03/10/20 New Medications: metroNIDAZOLE [Flagyl] 500 mg PO Q8H 5 Days #15 tablet levoFLOXacin [Levaquin*] 750 mg PO DAILY #5 tab Diet: AHA
[2020-03-10 10:22] VITALS: O2SAT 98
[2020-03-10 13:36] VITALS: BP 142/66; TEMP 97.5
== END 2020-03-10 12:24 | disposition home or self-care (01) ==
LOC: ER 07:56 → ERHOLD 10:36 → 2ND 10:51
PROVIDERS: ADMIT Internal Medicine; ATTEND Internal Medicine
DX: K57.32 Diverticulitis of large intestine without perforation or abscess without bleeding (principal); C25.9 Malignant neoplasm of pancreas, unspecified; I25.10 Atherosclerotic heart disease of native coronary artery without angina pectoris; E11.9 Type 2 diabetes mellitus without complications; E78.5 Hyperlipidemia, unspecified; F41.8 Other specified anxiety disorders; E66.01 Morbid (severe) obesity due to excess calories; Z68.37 Body mass index [BMI] 37.0-37.9, adult; K76.9 Liver disease, unspecified; R07.89 Other chest pain; F17.210 Nicotine dependence, cigarettes, uncomplicated; Z79.4 Long term (current) use of insulin; Z79.82 Long term (current) use of aspirin; Z79.02 Long term (current) use of antithrombotics/antiplatelets; Z79.899 Other long term (current) drug therapy; Z95.5 Presence of coronary angioplasty implant and graft
CPT/HCPCS: 96365; 96361; 93005; 85025 ×2; 80048; 36415 ×2; 83735; 85610; 80061; 82947 ×5; 80076; 83605; 83036; 84484 ×4; 83690; 83880; 74176; 71045; 96375; 99285; J1200; C9113 ×2; J1650 ×2; J2270 ×2; J1170 ×4; J0696; J7120 ×2; J7030; J2930; J2405 ×3; G0378 ×3

== ENCOUNTER 2020-03-24 17:49 | Emergency (ER) | payer BC ==
--- OUTSIDE RECORDS SUMMARY | 2020-03-24 18:34 | XMS REPORT | Clinical Summary ---
:1970 Author Organization [facility] Address [address] [place] [address] Care Team Providers Name Role Phone Pcp, [...] Only General Internal Medicine 02/12/2020 Travel after 03/24/2019 Social History Tobacco Use Types Packs/Day Years [...] 378 ms QTC Calculation(Bazett) 472 ms P Malmo 5 degrees R Malmo -1 degrees T Mal[place] 23 degrees Normal sinus rhythm Normal ECG No previous ECGs available ECG 12-LEAD STAT 02/12/2020 4:18 PM CDT Resu lts for this procedure are in the results section . after 03/24/2019 Results XR chest 2 views (02/12/2020 5:30 PM CDT) Specimen Narrative Performed At FINAL REPORT [facility] TECHNIQUE: Frontal and lateral chest rad iographs [...] MD Report Verified Date/Time:02/12/2020 17:35:52 Reading Location: [address] [facility] Reading Room Procedure Note Interface, External [...] Verified Date/Time: 02/12/2020 1 7:35:52 Reading Location: [address] [facility] Reading Room Performing Organization Address City/State/Zipcode Phone Number [facility] SARS-CoV2/RT-PCR (Symptomatic ONLY) (02/12/2020 5:15 PM CDT) SARS-COV2/RT-PCR Not Detected Not Detected, Negative [facility] SARS-COV-2 PERFORMING LAB [address] Specimen Other Narrative Performed At Negative results do not preclude SARS-CoV-2 [facility] infection and should not be used as [...] the Act. Fact Sheet for Healthcare Providers: https://www.[employer]/Documents/Xpert%20Xpre ss%20SARS%20CoV-2/Fact%20Sheets/3023802%20SAR S-COV-2%20HEALTHCARE%20PROVIDERS%20FACT%20SHEE T.pdf Fact Sheet for Healthcare Patients: https://www.[employer]/Documents/Xpert%20Xpre ss%20SARS%20CoV-2/Fact%20Sheets/3023801%20SAR S-COV-2%20PATIENT%20FACT%20SHEET.pdf Performing Laboratory: [address] [place] [address] Performing Organization Address City/State/Zipcode Phone Number [address] [address] CENTER CBC with platelet count + automated diff (02/12/2020 5:15 PM CDT) WBC 19.8 (H) 3.5 - 10.5 K/L [facility] RBC 5.14 3.93 - 5.22 M/L [facility] Hemoglobin 14.5 11.2 - 15.7 GM/DL [facility] Hematocrit 45.1 (H) 34.1 - 44.9 % [facility] MCV 87.7 79.4 - 94.8 fL [facility] MCH 28.2 25.6 - 32.2 pg [facility] MCHC 32.2 32.2 - 35.5 GM/DL [facility] RDW 12.6 11.7 - 14.4 % [facility] Platelets 217 150 - 450 K/CU MM [facility] MPV 10.8 9.4 - 12.3 fL [facility] nRBC 0 0 - 0 /[address] [facility] % Neutros 91 % [facility] % Lymphs 5 % [facility] % Monos 3 % [facility] % Eos 0 % [facility] % Baso 0 % [facility] # Neutros 18.10 (H) 1.56 - 6.13 K/L [facility] # Lymphs 0.90 (L) 1.18 - 3.74 K/L [facility] # Monos 0.62 (H) 0.24 - 0.36 K/L [facility] # Eos 0.02 (L) 0.04 - 0.36 K/L [facility] # Baso 0.05 0.01 - 0.08 K/L [facility] Immature 1 0 - 1 % [facility] Granulocytes-Relative MEDICAL CE NTER Specimen Blood Performing Organization Address [facility] Cent[facility] Phone Number [address] [address] CENTER Troponin I (02/12/2020 5:15 PM CDT) Troponin I <0.01 0.00 - 0.03 ng/mL [facility] Specimen Blood Narrative Performed At Troponin I (TnI) levels must be interpreted [facility] in the context of the presenting symptoms and the clinical findings. Elevated TnI levels indicate myocardial damage, but are not specific for ischemic heart disease. Elevated TnI levels are seen in patients with other cardiac conditions (including myocarditis and congestive heart failure), and slight TnI elevations occur in patients with other conditions, including sepsis, renal failure, acidosis, acute neurological disease, and persistent tachyarrhythmia. Electrotype Servicer ID - ARIES E Performing Organization Address City/[facility] Cent[facility]ode Phone Number [address] [address] CENTER B-type Natriuretic Factor (BNP) (02/12/2020 5:15 PM CDT) BNP 18 0 - 100 pg/mL [facility] Specimen Blood Narrative Performed At Electrotype Servicer ID - ARIES E [facility] Performing Organization Address City/[facility]/Zipcode Phone Number [address] [address] CENTER Basic Metabolic Panel (02/12/2020 5:15 PM CDT) Sodium 139 136 - 145 meq/L [facility] Potassium 3.8 3.5 - 5.1 meq/L [facility] Chloride 106 98 - 107 meq/L [facility] CO2 25 22 - 29 meq/L [facility] BUN 10 7 - 21 mg/dL [facility] Creatinine 0.70 0.57 - 1.25 mg/dL [facility] Glucose 184 (H) 70 - 105 mg/dL [facility] Calcium 8.8 8.4 - 10.2 mg/dL [facility] EGFR 107Comment: INSUFFICIENT mL/min/1.73 sq m [facility] CLINICAL DATA TO CALCULATE [facility] ESTIMATED GFR. Specimen Blood Narrative Performed At Electrotype Servicer ID - ARIES E [facility] [place] Performing Organization Address City/State/Zipcode Phone Number [facility] [address] [place] [address] CENTER ECG 12 lead (02/12/2020 4:18 PM CDT) Specimen Narrative Performed At Ventricular Rate 94 BPM GE MUSE Atrial Rate 94 BPM P-R Interval 124 ms QRS Duration 72 ms Q-T Interval 378 ms QTC Calculation(Bazett) 472 ms P Malmo 5 degrees R Malmo -1 degrees T Mal[place] 23 degrees Normal sinus rhythm Normal ECG No previous ECGs available Confirmed by MD VIAVR JOSEPH P ([id number]) on 0 6:29:32 AM Procedure Note Interface, External Ris In - 02/13/2020 6:29 AM CDT Ventricular Rate 94 BPM Atrial Rate 94 BPM P-R Interval 124 ms QRS Duration 72 ms Q-T Interval 378 ms QTC Calculation(Bazett) 472 ms P Mal[place] 5 degrees R Malmo -1 degrees T [place] 23 degrees Normal sinus rhythm Normal ECG No previous ECGs available Confirmed by MD VIVAR JOSEPH P ([id number]) on 02/13/2020 6:29:32 AM Performing Organization Address City/State/Zipcode Phone Number [employer] after 03/24/2019 Insurance Payer Benefit Plan / Group Subscriber ID Type Phone A ddress CDC REVIEW CDC REVIEW xxxxxxxx [address] [place], [place] [phone]
--- OUTSIDE RECORDS SUMMARY | 2020-03-24 18:34 | XMS REPORT | Continuity of Care Document ---
:1970 Author Organization [employer] Care Team Providers Name Role Phone [employer] Unavailable Un available Problems Problem Status Onset Classification Date Comments Sourc e Date Reported Urinary tract 03/02/2017 infection, site not 017 [place] specified ABD PAIN Active [facility] 017 [place] TMJ SYNDROME Active Condition 08/23/2014 [facility]14 [facility] MEDIAL MENISCUS TEAR, Active Condition 08/23/2014 LEFT 014 [facility] Tear of medial Resolved Problem 02/09/2020 Data meniscus of knee 014 migrated Med ical (disorder) from [facility],Mis Centricity jamee on 02/18/15. Neuro, [facility] [place] Temporomandibular Resolved Problem 02/09/2020 Data H [id number] 014 migrate d Medical syndrome (disorder) from [facility],Mis Centricity jamee on 02/18/15. Neuro, [facility] [place] POLYDIPSIA Active Condition 08/23/2014 014 [facility] Excessive thirst Resolved Problem 02/09/2020 Data (finding) 014 migrated Medical from [facility],Mis Centricity jamee on 02/18/15. Neuro, [facility] [place] RHINITIS Inactive Condition 08/23/2014 014 [facility] UTI Inactive Condition 08/23/2014 014 [facility] Urinary tract Resolved Problem 02/09/2020 Data infectious disease 014 migrated M edical (disorder) from [facility],Mis Centricity jamee on 04/04/15. Neuro [facility] [place] HYPERTENSION Active Condition 08/23/2014 014 [facility] DYSLIPIDEMIA Active Condition 08/23/2014 014 [facility] ANXIETY DEPRESSION Active Condition 08/23/2014 014 [facility] OBESITY Active Condition 08/23/2014 014 [facility] PHYSICAL EXAMINATION Active Condition 08/23/2014 014 [facility] Dyslipidemia Active Problem 02/09/2020 Data MH (disorder) 014 migrated Medical from [facility],Mis Centricity jamee on 02/18/15. Neuro,[facility], [facility] [place] Hypertensive disorder, Active Problem 02/09/2020 Data MH systemic arterial 014 migrated Me dical (disorder) from Group,Mis Centricity jamee on 02/18/15. Neuro,[facility], [facility] [place] Mixed anxiety and Active Problem 02/09/2020 Data M H depressive disorder 014 migrated Medical (disorder) from [facility],Mis Centricity jamee on 02/18/15. Neuro,[facility] [place] Obesity (disorder) Active Problem 02/09/2020 Data 014 migrated Medical from [facility],Mis Centricity jamee on 02/18/15. Neuro,[facility] [place] Diabetes mellitus Active Problem 02/09/2020 M H (disorder) Medical Group,Mis jamee Neuro, [facility] [place] Diverticulitis Resolved Problem 02/09/2020 MH (disorder) [facility] Group,Mis jamee Neuro,[facility] [place] Headache (finding) Active Problem 02/09/2020 Medical Group,Mis jamee Neuro, [facility] [place] Hypercholesterolemia Active Problem 02/09/2020 MH (disorder) [facility] Group,Mis jamee Neuro,[facility] [place] Lumbar radiculopathy Active Problem 02/09/2020 MH (disorder) [facility],Mis jamee Neuro, [facility] [place] Depressive disorder Active Problem 02/09/2020 MH (disorder) Medical Group,Mis jamee Neuro,[facility] [place] Myocardial infarction Active Problem 02/09/2020 MH (disorder) [facility] Group,Mis jamee Neuro, [facility] [place] Dysarthria (finding) Active Problem 02/09/2020 [facility] Paresthesia (finding) Active Problem 02/09/2020 [facility] Medications Medication Details Route Status Patient Ordering Order Source Instructions Provider Date pregabalin 75 MG Oral 75 mg = 1 Active 02/06/ [facility] Capsule [Lyrica] cap, PO, 2019 Neuro Daily, # 30 cap, 3 Refill(s) , other aripiprazole 5 MG 5 mg = 1 Active 02/06/ ch er Oral Tablet [Abilify] tab, PO, 2019 N euro Daily, 0 Refill(s) Diclofenac Sodium 2 gm, Active 01/09/ che r 0.01 MG/MG Topical TOP, BID, [...] cap, 3 Refill(s) , Pharmacy: [id number] repaglinide 2 mg oral 4 mg = [...] Daily, 0 Refill(s) clopidogrel 75 mg, Active PO, 2019 Neuro Daily, 0 Refill(s) Hydrochlorothiazide 25 mg, Active c her PO, BID, 2018 Neuro 0 Refill(s) Norvasc 5 mg, PO, Active Daily, 0 2018 Neuro Refill(s) Metformin 500 mg, Active PO, BID, 2018 Neuro 0 Refill(s) tramadol 50 mg = 1 Active hydrochloride 50 MG tab, PO, 2016 [place] Oral Tablet Q6H, PRN Pain, X 3 day, # 12 tab, 0 Refill(s) 24 HR Ciprofloxacin 500 mg = Active 500 MG Extended 1 tab, 2017 [place] Release Tablet PO, [Cipro] Daily, X 5 day, # 5 tab, 0 Refill(s) Benadryl 50 mg, Inactive Route: 2017 [place] IVP, ONCE, Dosing Weight 110.455, kg, Priority: STAT, Start date: 02/27/17 19:30:00 CDT, Stop date: 02/27/17 19:30:00 CDT Morphine 4 mg, Inactive Route: 2016 [place] IVP, ONCE, Dosing Weight 110.455, kg, Priority: STAT, Start date: 02/27/17 18:55:00 CDT, Stop date: 02/27/17 18:55:00 CDT Zofran 4 mg, Inactive Route: 2016 [place] IVP, Drug form: INJ, ONCE, Dosing Weight 110.455, kg, Priority: STAT, Start date: 02/27/17 18:55:00 CDT, Stop date: 02/27/17 18:55:00 CDT Saline Flush 0.9% Notes: Inactive (Same as: 2016 [place] BD Posiflush ) AMLODIPINE one daily Active [...] PANEL eGFR 95 02/27 Result Comment: The [place] eGFR is calculated using the CKD-EPI formula. [...] PANEL ASPARTATE 13 0 - 37 02/27 [facility] CHEM PANEL BUN 10 7 - 22 02/27 [place] CHEM PANEL Creatinine 0.74 0.50 - 06 MH Lvl 1.40 [place] CHEM PANEL ALANINE 28 0 - 65 02/27 AMINO [place] ASE CHEM PANEL Albumin Lvl 3.6 3.5 - 5.0 02/27 [place] CHEM PANEL Alk Phos 81 39 - 136 02/27 [place] CHEM PANEL Glucose Lvl 123 70 - 99 02/27 [place] CHEM PANEL Bili Total 0.3 0.2 - 1.3 02/27 [place] CHEM PANEL Sodium Lvl 143 135 - 145 02/27 [place] CHEM PANEL Total Protein 7.9 6.4 - 8.4 02/27 [place] CHEM PANEL Calcium Lvl 8.9 8.5 - 10.5 02/27 [place] CHEM PANEL Chloride Lvl 107 95 - 109 02/27 [place] CHEM PANEL Potassium Lvl 3.9 3.5 - 5.1 02/27 [place] CHEM PANEL CO2 29 24 - 32 02/27 [place] CHEM PANEL A/G Ratio 0.8 0.7 - 1.6 02/27 [place] CHEM PANEL AGAP 10.9 10.0 - 02/27 MH 20.0 [place] CHEM PANEL Globulin 4.3 2.7 - 4.2 02/27 [place] CHEM PANEL B/C Ratio 14 6 - 25 02/27 [place] CHEM PANEL Lipase Lvl 157 73 - 393 02/27 [facility] ENDOCRINOLO hCG Tot 1 02/27 [facility] HEMATOLOGY Segs 64.7 45.0 - 02/27 MH 75.0 [place] HEMATOLOGY Lymphocytes # 2.9 1.0 - 5.5 02/27 [place] HEMATOLOGY Basophils # 0.1 0.0 - 0.2 02/27 [place] HEMATOLOGY Eosinophils # 0.4 0.0 - 0.5 02/27 [place] HEMATOLOGY Monocytes # 0.9 0.0 - 0.8 02/27 [place] HEMATOLOGY Segs-Bands # 7.8 1.5 - 8.1 02/27 [place] HEMATOLOGY Eosinophils 3.2 0.0 - 4.0 02/27 [place] HEMATOLOGY Monocytes 7.4 2.0 - 12.0 02/27 [place] HEMATOLOGY Lymphocytes 24.1 20.0 - 02/27 MH 40.0 [place] HEMATOLOGY Basophils 0.6 0.0 - 1.0 02/27 [place] HEMATOLOGY Hct 40.4 36.0 - 02/27 MH 48.0 [place] HEMATOLOGY Hgb 13.9 12.0 - 02/27 MH 16.0 [place] HEMATOLOGY RBC X 10x6 4.61 4.20 - 02/27 MH 5.40 [place] HEMATOLOGY WBC X 10x3 12.0 3.7 - 10.4 02/27 [place] HEMATOLOGY MPV 8.1 7.4 - 10.4 02/27 [place] HEMATOLOGY RDW 13.9 11.5 - 02/27 MH 14.5 [place] HEMATOLOGY Platelet 279 133 - 450 02/27 [place] HEMATOLOGY MCHC 34.5 32.0 - 02/27 MH 36.0 [place] HEMATOLOGY MCH 30.2 27.0 - 02/27 MH 31.0 [place] HEMATOLOGY MCV 87.5 80.0 - 02/27 MH 98.0 [place] URINE AND UA Bacteria Moderate None Seen 02/27 STOOL /HPF /HPF /2016 [place] URINE AND UA Sq Epi Few /LPF Few /LPF 02/27 STOOL /2016 [place] URINE AND UA WBC 11-20 None Seen 02/27 STOOL /HPF /HPF /2016 [place] URINE AND UA RBC 21-50 0 - 2 02/27 STOOL /HPF [place] URINE AND UA Nitrite See Note Negative 02/27 STOOL (02/27/17 5:29 PM) /2016 [place] URINE AND UA Leuk Est Moderate Negative 02/27 STOOL *ABN* /2016 [place] (02/27/17 5:29 PM) URINE AND UA 4.0 0.1 - 1.0 02/27 STOOL Urobilinogen /2016 [place] URINE AND UA Glucose See Note 1 Negative 02/27 Result STOOL (02/27/17 5:29 PM) /2016 Comment: Patricia and Unable to determine due to interference from color of urine.
17:57 cg URINE AND UA Ketones Negative Negative 02/27 STOOL *NA* /2016 [place] (02/27/17 5:29 PM) URINE AND UA Bili See Note Negative 02/27 STOOL (02/27/17 5:29 PM) /2016 [place] URINE AND UA Blood Large Negative 02/27 STOOL *ABN* [place] (02/27/17 5:29 PM) URINE AND UA Protein >=300 Negative 02/27 STOOL mg/dL mg/dL [place] URINE AND UA Turbidity Slight Cloudy Clear 02/27 STOOL (02/27/17 5:29 PM) /2016 [place] URINE AND UA Spec Grav >=1.030 <=1.030 02/27 STOOL *ABN* /2016 [place] (02/27/17 5:29 PM) URINE AND UA pH 5.5 5.0 - 8.0 02/27 STOOL /2016 [place] URINE AND UA Color Ritchie Yellow 02/27 STOOL *ABN* /2016 [place] (02/27/17 5:29 PM) URINE CHEM U Preg [...] LDL See Note - 99 01/17 mg/dL /2013 [facility] Chemistry SODIUM 137 MEQ/L 135 [...] 1.680 0.360 - 01/17 3. 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, cont to have upper abd pain, [...] CT abdomen and pelvis with contrast. 02/27/2017 [facility] contrast only CT HISTORY: Left [...] Comments Source Systolic (mm Hg) 142 02/07/2020 [facility] Roxy ro Diastolic (mm Hg) 99 02/07/2020 [facility] Ne uro Heart Rate 80 02/07/2020 [facility] Neuro Respitory Rate 16 02/07/2020 [facility] Neuro Height 167.64 cm 02/07/2020 [facility] Neuro Weight 108.182 02/07/2020 [facility] Neuro BMI Calculated 38.49 02/07/2020 [facility] Neuro Systolic (mm Hg) 132 12/05/2019 [facility] Roxy ro Diastolic (mm Hg) 77 12/05/2019 [facility] Ne uro Heart Rate 85 12/05/2019 [facility] Neuro Respitory Rate 16 12/05/2019 [facility] Neuro Height 167.64 cm 12/05/2019 [facility] Neuro Weight 111.818 12/05/2019 [facility] Neuro BMI Calculated 39.79 12/05/2019 [facility] Neuro Systolic (mm Hg) 137 10/12/2019 Medical [...] [facility] Ne uro Heart Rate 91 [facility]18[facility] Respitory Rate 16 05/18/2019 [facility] [...] uro Systolic (mm Hg) 133 02/28/2017 MH [place] Diastolic (mm Hg) 63 02/28/2017 [place] Respitory Rate 18 02/28/2017 [place] Temperature Oral (F) 98 F 02/28/2017 [place] Heart Rate 82 02/28/2017 MH [place] Systolic (mm Hg) 142 02/28/2017 [facility] [place] Diastolic (mm Hg) 70 02/28/2017 [place] Heart Rate 122 02/27/2017 MH [place] Systolic (mm Hg) 128 02/27/2017 MH [place] Diastolic (mm Hg) 85 02/27/2017 [place] Temperature Oral (F) 98.6 F 02/27/2017 [facility] Respitory Rate 18 02/27/2017 [facility] Height 167.64 cm 02/27/2017 [facility] BMI Calculated 39.3 02/27/2017 [facility] Weight 110.455 02/27/2017 [facility] Height 65.5 08/23/2014 Medical Grou p [...] Type Number For Provider Date Date Visit [facility] Lab Report [id number] Samson 01/17 01/17 Srini 6980 Medical Medical MD Group Group [facility] Office [id number] Samson 03/29 03/29 [place] Visit 1590 Medical Medical MD Group Group [facility] Office [id number] Samson 05/10 05/10 Srini Visit 5240 , Medical Medical MD Group Group [facility] Lab Report [id number] Samson 05/10 05/10 [place] 2930 [place]iko, Medical Medical MD Group Group [facility] Office [id number] Samson 08/23 08/23 [place] Visit 3330 Karent[place]iko, Medical Medical MD Group Group [facility] Emergency [id number] Spike 02/27 02/28 Srini Wenceslao /2016 [facility] Outpatient [id number] Ruy 04/03 04/04 [facility] Neurology Kre [facility] [place] Outpatient [id number] Ruy 05/18 Active [facility] Kre Srini MNA Outpatient [id number] Ruy 05/18 05/19 [facility] Neurology Kre [facility] [place] Outpatient [id number] Ruy 06/27 Active [facility] Kre [place] MNA Outpatient [id number] Ruy 06/27 06/28 [facility] Neurology Kre [facility] [place] Outpatient [id number] Ruy 08/08 Active [facility] Kre [place] MNA Outpatient [id number] Ruy 08/08 08/09 [facility] Neurology Kre [facility] [place] Outpatient [id number] Nadim 10/12 Active [facility] Therese Srini [facility] Outpatient [id number] Nadim 10/12 10/13 Gastroenter Therese /2019 Medic al ology [facility] Between [id number] 10/13 10/14 Gastroenter Visit /2019 Medic al ology [facility] Outpt Diag [id number] Nadim 10/30 10/31 [facility] Therese /2019 [facility] [place] Outpatient [id number] Ruy 12/04 Active [facility] Kre [place] MNA Outpatient [id number] Ruy 12/04 12/05 [facility]2019 [facility] [place] Outpatient [id number] Ruy 01/09 Active [facility] [place] MNA Outpatient [id number] Ruy 01/09 01/10 [facility] Neurology Kre /2019 Neuro [place] Outpatient [id number] Ruy 02/06 Active [facility] /2019 [place] MNA Outpatient [id number] Ruy 02/06 02/07 [facility] Neurology Kre /2019 Neuro [place] Outpatient [id number] Ruy 04/02 Active [facility] /2019 [place] Outpatient [id number] Ruy 05/23 Active [facility] /2019 Sr[place] Outpatient [id number] Ruy 05/23 Active [facility] /2019 [place] Procedures Procedure Code Date Perfomer Comments Source smoking/tobacco 14 01/17/2014 DONE Medica l cessation, patient Group education and counseling mammogram 28734 04/19/2013 [facility] vaginal Pap smear 51815 02/17/2013 Complete [facility] johnny results Group Assessment and Plan No Data Provided for This Section Plan of Care No Data Provided for This Section Social History Social History Date Source Social History [facility]Response 04/03/2019 [facility] Employment/School Status: Employed. Work/School description: [employer]. Smoking Status Current every day smoker; Type: Cigarett es; Exposure to Tobacco Smoke Unable to obtain; Cigarette Smoking Last 365 Days Yes; Reg Smoking Cessation Counseling No entered on: 02/07/20 Social History TypeResponse 04/03/2019 Lisa george Employment/School Status: Employed. Work/School description: [employer]. Smoking Status Current every day smoker; Lives with chau eone who smokes; Cigarette Smoking Last 365 Days Yes; Reg Smoking Cessation Counseling Yes entered on: 10/12/19 Social History TypeResponse 04/03/2019 ROCAEL Morris Employment/School Status: Employed. Work/School description: [employer]. Smoking Status Current every day smoker; Lives [...]
--- OUTSIDE RECORDS SUMMARY | 2020-03-24 18:34 | XMS REPORT | Clinical Summary ---
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
--- OUTSIDE RECORDS SUMMARY | 2020-03-24 18:37 | XMS REPORT | Continuity of Care Document ---
:1970 Author Organization [facility] t Address [address] [place] [id number] Care Team Providers Name Role Phone Chris WATSON Primary Care Physician KARIN KERN Attending Clinician Unavailable Karin Kern MD Attending Clinician Valentín Mac Attending Clinician Jorge Saleh Attending Clinician Jorge A Billy Attending Clinician Payers Payer Name Policy Type Policy Number Effective Date Expiration Date S luis antonioce [facility] REVIEWCDC xxxxxxxx [facility] REVIEWxxxxxxxxPO Merged with [facility] [id number] Center Problems Condition Condition Condition Status Onset Resolution Last Treating Co mments Source Name Details Category Date Date Treatment Clinician Date ABD PAIN Diagnosis Active 2017-02-27 M emoria - 17:40:00 l ABD PAIN 00:00: Juan F n 00 Active 02/27/2017 [facility] [place] TMJ Condition Active 2013-092014-08-23 Mem oria SYNDROME 2- 10:51:01 l TMJ 00:00: Srini SYNDROME 00 Active 08/23/2014 [facility] MEDIAL Condition Active 2013-092014-08-23 Mem oria MENISCUS 2-05 10:51:01 l TEAR, LEFT MEDIAL 00:00: Herm birgit MENISCUS 00 TEAR, LEFT Active 08/23/2014 [facility] POLYDIPSIA Condition Active 2014-08-23 Memoria 8- 10:51:01 l 00:00: [place] POLYDIPSIA 00 Active 05/10/2014 Condition [facility] HYPERTENSI Condition Active 2014-08-23 Memoria ON 01-17 10:51:01 l 00:00: [place] HYPERTENSI 00 ON Active 4 Condition 08/23/2014 Medical Group DYSLIPIDEM Condition Active 2014-08-23 Memoria IA 01-17 10:51:01 l 00:00: [place] DYSLIPIDEM 00 IA Active 4 Condition 08/23/2014 Medical Group ANXIETY Condition Active 2014-08-23 Me moria DEPRESSION - 10:51:01 l ANXIETY 00:00: Srini DEPRESSION 00 Active 01/17/2014 Condition [facility] OBESITY Condition Active 2014-08-23 Me moria - 10:51:01 l OBESITY 00:00: Srini 00 Active 01/17/2014 [facility] PHYSICAL Condition Active 2014-08-23 M emoria EXAMINATIO - 10:51:01 l N PHYSICAL 00:00: Juan F n EXAMINATIO 00 N Active 01/17/2014 Condition [facility] Dyslipidem Problem Active 2020-02-09 M emoria ia 01-17 23:58:52 l (disorder) 00:00: Juan F n Dyslipidem 00 ia (disorder) Active 01/17/2014 Problem 02/09/2020 Data migrated from [employer] on 02/18/15. Medical Group,[facility] her Neuro, [place],M H OPID [place] Hypertensi Problem Active 2020-02-09 M emoria ve 01-17 23:58:52 l disorder, 00:00: Srini systemic Hypertensi 00 arterial ve (disorder) disorder, systemic arterial (disorder) Active 01/17/2014 Problem 02/09/2020 Data migrated from [employer] on 02/18/15. Medical Group,[facility] her Neuro, [place],M H OPID [place] Mixed Problem Active 2020-02-09 Memor ia anxiety - 23:58:52 l and Mixed 00:00: [place] depressive anxiety 00 disorder and (disorder) depressive disorder (disorder) Active 01/17/2014 Problem 02/09/2020 Data migrated from [employer] on 02/18/15. Medical Group,[facility] her Neuro, [place],M H OPID [place] Obesity Problem Active 2020-02-09 Alexey farida (disorder) 01-17 23:58:52 l Obesity 00:00: Srini (disorder) 00 Active 01/17/2014 Problem 02/09/2020 Data migrated from [employer] on 02/18/15. Medical Group,[facility] her Neuro, [place],M H OPID [place] Diverticul Problem Resolve 2020-02-09 Memoria itis d 23:58:52 l (disorder) Juan F n Diverticul itis (disorder) Resolved Problem 02/09/2020 Medical Group,[facility] her Neuro, [place],M H OPID [place] Diabetes Problem Active 2020-02-09 Mem oria mellitus 23:58:52 l (disorder) Diabetes He rmann mellitus (disorder) Active Problem 02/09/2020 Medical Group,[facility] her Neuro, OPID [place] Headache Problem Active 2020-02-09 Mem oria (finding) 23:58:52 l Headache Juan F n (finding) Active Problem 02/09/2020 Medical Group,[facility] her Neuro, OPID [place] Hyperchole Problem Active 2020-02-09 M emoria sterolemia 23:58:52 l (disorder) Juan F n Hyperchole sterolemia (disorder) Active Problem 02/09/2020 Medical Group,[facility] her Neuro, [place],M H OPID [place] Lumbar Problem Active 2020-02-09 Memor ia radiculopa 23:58:52 l thy Lumbar [place] (disorder) radiculopa thy (disorder) Active Problem 02/09/2020 Medical Group,[facility] her Neuro, OPID [place] Depressive Problem Active 2020-02-09 M emoria disorder 23:58:52 l (disorder) Juan F n Depressive disorder (disorder) Active Problem 02/09/2020 Medical Group,[facility] her Neuro, [place],M H OPID [place] Myocardial Problem Active 2020-02-09 M emoria infarction 23:58:52 l (disorder) Juan F n Myocardial infarction (disorder) Active Problem 02/09/2020 Medical Group,[facility] her Neuro,[facility] OPID [place] Dysarthria Problem Active 2020-02-09 M emoria (finding) 23:58:52 l [place] Dysarthria (finding) Active Problem 02/09/2020 [facility] Paresthesi Problem Active 2020-02-09 M emoria a 23:58:52 l (finding) Srini Paresthesi a (finding) Active Problem 02/09/2020 [facility] Urinary Problem 2016-2017-03-02 2017-03-02 Memoria tract 02-27 00:42:19 00:42:19 l infection, Urinary 05:00: Her ley site not tract 00 specified infection, site not specified 02/27/2017 03/02/2017 [facility] History of Past Illness Condition Condition Condition Status Onset Resolution Last Treating Co mments Source Name Details Category Date Date Treatment Clinician Date Tear of Problem Resolve 2013-092020-02-09 2020-02-09 Memoria medial d 10-24 23:58:52 23:58:52 l meniscus Tear of 00:00: Alisia nn of knee medial 00 (disorder) meniscus of knee (disorder) Resolved 08/23/2014 Problem 02/09/2020 Data migrated from [employer] on 02/18/15. Medical Group,[facility] her Neuro, Puneet Antunez OPID [place] Temporoman Problem Resolve 2013-092020-02-09 2020-02-09 Memoria dibular d 10-24 23:58:52 23:58:52 l joint-pain 00:00: Juan F schmidt -dysfuncti Temporoman 00 on dibular syndrome joint-pain (disorder) -dysfuncti on syndrome (disorder) Resolved 08/23/2014 Problem 02/09/2020 Data migrated from [employer] on 02/18/15. Medical Group,[facility] her Neuro,Puneet Ocampo OPID [place] Excessive Problem Resolve 2013-2020-02-09 2020-02-09 Memoria thirst d 05-10 23:58:52 23:58:52 l (finding) 00:00: [place] Excessive 00 thirst (finding) Resolved 05/10/2014 Problem 02/09/2020 Data migrated from [employer] on 02/18/15. Medical Group,[facility] her Neuro,Puneet Ocampo OPID [place] Urinary Problem Resolve 2020-02-09 2020-02-09 Memoria tract d 03-29 23:58:52 23:58:52 l infectious Urinary 00:00: Her ley disease tract 00 (disorder) infectious disease (disorder) Resolved 03/29/2014 Problem 02/09/2020 Data migrated from [employer] on 04/04/15. Medical Group,[facility] her Neuro,Puneet Ocampo OPID [place] RHINITIS Condition Inactiv 2014-08-23 2014-08-23 Memoria e 03-29 10:51:01 10:51:01 l RHINITIS 00:00: Juan F n 00 Inactive 03/29/2014 Condition [facility] UTI Condition Inactiv 2014-08-23 2014-08-23 Memoria e 03-29 10:51:01 10:51:01 l UTI 00:00: [place] 00 Inactive 03/29/2014 Condition [facility] Allergies, Adverse Reactions, Alerts Allergy Allergy Status Severity Reaction(s) Onset Inactive Treating Comm ents Source Name Type Date Date Clinician Iodinate Drug Active Swelling [facility] d Allergy 5-26 [facility] Cont[facility] 00:00: [facility] 00 Center Iodine Propensi Active [place] And ty to 04-06 [facility] Iodide adverse 00:00: st Containi reaction 00 ng s to Products drug No Known No Known Active Memori a Medicati Medicati l on on Srini Coppola s s Family History Family Member Diagnosis Comments Start Date Stop Date Source Natural brother Cancer [place] [facility] ethodist Natural father Alzheimer's disease [facility] Natural father Hypertension [place] [facility] Natural mother Cancer [place] Me thodist Natural mother Hypertension [place] [facility] Social History Social Habit Start Date Stop Date Quantity Comments Source Sex Assigned At [facility] Social History 2019-04-03 2019-04-03 [facility] Rad padilla 18:52:55 18:52:55 Alcohol intake 2017-12-19 2017-12-19 Current [facility] thodist 00:00:00 00:00:00 non-drinker of alcohol (finding) Smoking Status Start Date Stop Date Source Social History 2017-02-27 23:48:32 [facility] Her ley Medications Ordered Filled Start Stop Current Ordering Indication Dosage Frequency Signature Comments Components Source Medication Medication Date Date Medication? Clinician (SIG) Name Name albuterol 2020- Yes 2{puff} Inhale [address] [facility] HFA 02-11-26 puffs by [facility] - (VENTOLIN 00:00: 23:59 mouth via Me dical HFA) 90 00 :00 inhaler Center mcg/actuati every 4 on inhaler (four) hours as needed for Wheezing. predniSONE 2019- No 50mg QD Take [address] [facility] (DELTASONE) 02-11- tablet (50 L ukes - 50 MG [...] No 2{puff} Inhale [address] [facility] HFA 02-11- puffs by [facility] (VENTOLIN 00:00: 00:00 mouth via Me dical HFA) 90 00 :00 inhaler Center mcg/actuati every 4 on inhaler (four) hours as needed for Wheezing. AZITHROmyci 2019- No Take [address] [facility] n -11 02-26 tablets [facility] - (ZITHROMAX) 00:00: 00:00 (500 [...] 00 30 cap, 3 Refill(s), other aripiprazol Yes 5 mg = 1 Me moria e 5 MG Oral 5-21 tab, PO, l Tablet 14:52: Daily, 0 Srini [Abilify] 00 Refill(s) Diclofenac 2020-0 Yes 2 gm, TOP, M emoria Sodium 0.01 4-23 BID, 0 l MG/MG 14:28: Refill(s) Srini Topical Gel 00 [Voltaren] Repatha 2020-0 Yes 140 mg, Memoria 4-23 SUB-Q, l 14:28: qMonth, 0 Refill(s) meloxicam 2019-0 Yes 15 mg, PO, Me moria 4-23 Daily, 0 l 14:25: Refill(s) Methocarbam 2019-0 Yes 0 Memori a ol 4-23 Refill(s) l 14:25: NovoLog 2020-0 Yes 25 unit, Memori a 4-23 SUB-Q, l 14:24: TID-Before [place] 00 Meals, 0 Refill(s) pregabalin 2019-0 Yes 75 mg = 1 Me moria 75 MG Oral 3-18 cap, PO, l Capsule 19:33: BID, # 60 Alisia nn [Lyrica] 00 cap, 3 Refill(s), Pharmacy: [facility][id number] repaglinide 2019-0 Yes 4 mg = 2 Me moria 2 mg oral 3-18 tab, PO, l tablet 19:17: TID-Before Alisia nn 00 Meals, 0 Refill(s) metFORMIN 2019-0 Yes 500 mg = 1 Me moria [...] 5 mg PO Daily, 0 Refill(s) Lipitor Yes 80 mg, PO, Alexey farida 7-16 [...] 7-16 Daily, 0 l 18:39: Refill(s) Metformin 0 Yes 500 mg, Memor ia 7-16 PO, [...] Yes 5mg QD Take 5 mg Damion bhaagt (NORVASC) 5 6-14 by mouth Meth gris [...] # 12 tab, 0 Refill(s) 24 HR 2016- Yes 500 mg = 1 Memori a Ciprofloxac 6-12 tab, PO, l in 500 MG 01:00: Daily, X 5 He rmann Extended 00 day, # 5 Release tab, 0 Tablet Refill(s) [Cipro] Benadryl 2017-0 No 50 mg, Memoria 6-12 Route: l 00:30: IVP, ONCE, [place] Dosing Weight 110.455, kg, Priority: STAT, Start date: 02/27/17 19:30:00 CDT, Stop date: 02/27/17 19:30:00 CDT Morphine 2017-0 No 4 mg, Memoria 611 Route: l 23:55: IVP, ONCE, Dosing Weight 110.455, kg, Priority: STAT, Start date: 02/27/17 18:55:00 CDT, Stop date: 02/27/17 18:55:00 CDT Zofran 2016- No 4 mg, Memoria 6-11 Route: l 23:55: IVP, Drug form: INJ, ONCE, Dosing Weight 110.455, kg, Priority: STAT, Start date: 02/27/17 18:55:00 CDT, Stop date: 02/27/17 18:55:00 CDT Saline 2016- No Notes: Memoria Flush 0.9% 6-11 (Same [...] moria BESY-BENAZE 2-05 l PRIL HCL 00:00: Srini 10-40 MG 00 CAPS DYAZIDE 2013-09 Yes one daily Memor ia 37.5-25 MG 2-05 l CAPS 00:00: [place] AMLODIPINE Yes one daily Me moria BESY-BENAZE 8-22 l PRIL HCL 00:00: Srini 5-40 MG 00 CAPS ATORVASTATI Yes one tablet Memoria N CALCIUM 7-11 every l 10 MG TABS 00:00: evening Herm birgit AMLODIPINE No One tablet M emoria BESY-BENAZE 7-11 every l PRIL HCL 00:00: morning. Alisia nn 5-20 MG 00 CAPS BACTRIM DS No one bid. Mem oria 800-160 MG 7-11 l TABS 00:00: Srini ATORVASTATI Yes one tablet Memoria N CALCIUM 7-11 every l 10 MG TABS 00:00: evening Herm birgit DIOVAN HCT No one daily Me moria 160-12.5 MG 5-01 l TABS 00:00: LAMICTAL 2013-0 Yes 1 tablet Memor ia 150 MG TABS 5-01 daily l 00:00: LEXAPRO 20 0 Yes 1 tablet Mem oria MG TABS 5-01 twice day l 00:00: ALPRAZOLAM 2013-0 Yes 1 tablet Mem oria 0.5 MG TABS 5-01 daily PRN l 00:00: LEXAPRO 20 0 Yes 1 tablet Mem oria MG TABS 5-01 twice day l 00:00: ALPRAZOLAM 0 Yes 1 tablet Mem oria 0.5 MG TABS 5-01 daily PRN l 00:00: DIOVAN HCT 0 No one daily Me moria 160-12.5 MG 5-01 l TABS 00:00: Vital Signs Vital Name Observation Time Observation Value Comments Source Systolic blood 2020-02-12 19:00:00 124 mm[Hg] [facility] Diastolic blood 2020-02-12 19:00:00 68 mm[Hg] [facility] Heart rate 2020-02-12 19:00:00 98 /min [facility] Respiratory rate 2020-02-12 19:00:00 19 /min [facility] Oxygen saturation in 2020-02-12 19:00:00 96 /min [facility] Arterial blood by Medical Ce nter Pulse oximetry Body temperature 2020-02-12 15:57:00 36.89 Ayse [facility] Body weight Measured 2020-02-12 15:57:00 107.956 kg [facility] Systolic (mm Hg) 2020-02-07 14:50:00 Alexey rial [place] Diastolic (mm Hg) 2020-02-07 14:50:00 Mem orial [place] Heart Rate 2020-02-07 14:50:00 [facility] 2020-02-07 14:50:00 Connie Jordan Height 2020-02-07 14:50:00 167.64 cm [facility] Weight 2020-02-07 14:50:00 [facility] BMI Calculated 2020-02-07 14:50:00 Memori al [place] Systolic (mm Hg) 2019-12-05 19:12:00 Alexey rial [place] Diastolic (mm Hg) 2019-12-05 19:12:00 Mem orial [place] Heart Rate 2019-12-05 19:12:00 Memorial [place] Respitory Rate 2019-12-05 19:12:00 Memori al [place] Height 2019-12-05 19:12:00 167.64 cm Memorial Srini Weight 2019-12-05 19:12:00 [facility] [place] BMI Calculated 2019-12-05 19:12:00 Memori al [place] Systolic (mm Hg) 2019-10-12 17:34:00 Alexey rial [place] Diastolic (mm Hg) 2019-10-12 17:34:00 Mem orial [place] Heart Rate 2019-10-12 17:34:00 Memorial [place] Height 2019-10-12 17:34:00 167.64 cm Memorial Srini Weight 2019-10-12 17:34:00 Memorial Srini BMI Calculated 2019-10-12 17:34:00 Memori al Srini Systolic (mm Hg) 2019-08-08 20:55:00 Alexey rial [place] Diastolic (mm Hg) 2019-08-08 20:55:00 Mem orial Srini Heart Rate 2019-08-08 20:55:00 Memorial [place] Respitory Rate 2019-08-08 20:55:00 Memori al Srini Height 2019-08-08 20:55:00 167.64 cm Memorial [place] Weight 2019-08-08 20:55:00 Memorial Srini BMI Calculated 2019-08-08 20:55:00 Memori al [place] Systolic (mm Hg) 2019-06-27 20:49:00 Alexey rial Srini Diastolic (mm Hg) 2019-06-27 20:49:00 Mem orial [place] Heart Rate 2019-06-27 20:49:00 Memorial [place] Respitory Rate 2019-06-27 20:49:00 Memori al [place] Height 2019-06-27 20:49:00 167.64 cm Memorial Srini Weight 2019-06-27 20:49:00 Memorial [place] BMI Calculated 2019-06-27 20:49:00 Memori al [place] Systolic (mm Hg) 2019-05-18 20:00:00 Alexey rial [place] Diastolic (mm Hg) 2019-05-18 20:00:00 Mem orial Srini Heart Rate 2019-05-18 20:00:00 Memorial Srini Respitory Rate 2019-05-18 20:00:00 Memori al Srini Height 2019-05-18 20:00:00 167.64 cm Memorial Srini Weight 2019-05-18 20:00:00 [facility] [place] BMI Calculated 2019-05-18 20:00:00 Memori al [place] Weight 2019-04-03 18:11:00 Memorial Srini BMI Calculated 2019-04-03 18:11:00 Memori al [place] Height 2019-04-03 18:11:00 167.64 cm Memorial Srini Heart Rate 2019-04-03 18:11:00 Memorial Srini Respitory Rate 2019-04-03 18:11:00 Memori al [place] Systolic (mm Hg) 2019-04-03 18:11:00 Alexey rial Srini Diastolic (mm Hg) 2019-04-03 18:11:00 Mem orial [place] Systolic (mm Hg) 2017-02-28 01:20:00 Alexey rial Srini Diastolic (mm Hg) 2017-02-28 01:20:00 Mem orial Srini Respitory Rate 2017-02-28 00:36:00 Memori al [place] Temperature Oral (F) 2017-02-28 00:36:00 98 F Memorial [place] Heart Rate 2017-02-28 00:36:00 [facility] [place] Systolic (mm Hg) 2017-02-28 00:36:00 Alexey rial Srini Diastolic (mm Hg) 2017-02-28 00:36:00 Mem orial Srini Heart Rate 2017-02-27 22:13:00 Memorial [place] Systolic (mm Hg) 2017-02-27 22:13:00 Alexey rial [place] Diastolic (mm Hg) 2017-02-27 22:13:00 Mem orial Srini Temperature Oral (F) 2017-02-27 22:13:00 98.6 F Memorial [place] Respitory Rate 2017-02-27 22:13:00 Memori al Srini Height 2017-02-27 22:13:00 167.64 cm Memorial Srini BMI Calculated 2017-02-27 22:13:00 Memori al Srini Weight 2017-02-27 22:13:00 Memorial Srini Height 2014-08-23 16:51:01 [facility] [place] Weight 2014-08-23 16:51:01 [facility] [place] Temperature Oral (F) 2014-08-23 16:51:01 98.1 F Memorial [place] Heart Rate 2014-08-23 16:51:01 Memorial Srini Systolic (mm Hg) 2014-08-23 16:51:01 Alexey rial Srini Diastolic (mm Hg) 2014-08-23 16:51:01 Mem orial Srini Weight 2014-05-10 15:26:33 Memorial Srini Temperature Oral (F) 2014-05-10 15:26:33 98.2 F Memorial [place] Heart Rate 2014-05-10 15:26:33 Memorial [place] Systolic (mm Hg) 2014-05-10 15:26:33 Alexey rial [place] Diastolic (mm Hg) 2014-05-10 15:26:33 Mem orial Srini Height 2014-05-10 15:26:33 Memorial Srini Weight 2014-03-29 15:53:52 [facility] [place] Temperature Oral (F) 2014-03-29 15:53:52 97.8 F Memorial Srini Heart Rate 2014-03-29 15:53:52 [facility] [place] Systolic (mm Hg) 2014-03-29 15:53:52 Alexey rial Srini Diastolic (mm Hg) 2014-03-29 15:53:52 Mem orial [place] Height 2014-01-17 14:43:32 Memorial [place] Weight 2014-01-17 14:43:32 [facility] [place] Temperature Oral (F) 2014-01-17 14:43:32 98.0 F Memorial Srini Heart Rate 2014-01-17 14:43:32 Memorial [place] Systolic (mm Hg) 2014-01-17 14:43:32 Alexey rial [place] Diastolic (mm Hg) 2014-01-17 14:43:32 Mem orial Srini Procedures Procedure Date / Time Performed Performing Clinician Sourc e XR CHEST 2 VIEWS 2020-02-12 17:30:00 Sean Kern [facility] SARS-COV2/RT-PCR ([facility] & 2020-02-12 17:15:[address] [facility] - REF LABS) [facility] Center B-TYPE NATRIURETIC 2020-02-12 17:15:00 Sean Kern [facility] FACTOR (BNP) [facility] BASIC METABOLIC PANEL 2020-02-12 17:15:00 Sean Kern [facility] (7) [facility] TROPONIN I 2020-02-12 17:15:00 Isaac, Sean Butlerbc [facility] CBC W/PLT COUNT & AUTO 2020-02-12 17:15:00 Sean Kern [facility] ECG 12-LEAD 2020-02-12 16:18:19 Unknown, Hl7 Doctor [facility] smoking/tobacco 2014-01-17 14:43:32 dEward ley cessation, patient education and counseling mammogram 2013-04-19 15:45:41 Edward ley vaginal Pap smear 2013-02-17 14:53:37 [facility] results Plan of Care Planned Activity Planned Date Details Comments Source Future Scheduled 2020-04-19 INFLUENZA VACCINE [facility] Test 00:00:00 [code = INFLUENZA VACCINE] Future Scheduled 2018 BREAST CANCER [facility] thodist Test 00:00:00 SCREENING [code = BREAST CANCER SCREENING] Future Scheduled 2018 COLONOSCOPY [facility]CRE[facility]ING [facility] Test 00:00:00 [code = COLONOSCOPY SCREENING] Future Scheduled 2018 SHINGLES VACCINES [facility] Test 00:00:00 (#1) [code = SHINGLES VACCINES (#1)] Future Scheduled 1989 Screening for [facility] thodist Test 00:00:00 malignant neoplasm of cervix (procedure) [code = 316641643] Encounters Start End Encounter Admission Attending Care Care Encounter Source Date/Time Date/Time Type Type Clinicians Facility Department ID 2020-02-07 2020-02-07 Outpatient DASHA Mac [id number] 09:30:00 23:59:59 Ruy 07 Valentín 2020-01-10 2020-01-10 Outpatient DASHA Mac [id number] 09:15:00 23:59:59 Ruy 06 Valentín 2019-12-05 2019-12-05 Outpatient DASHA Mac [id number] 13:45:00 23:59:59 Ruy 04 Valentín 2019-10-30 2019-10-30 Outpatient Therese, [id number] 08:26:00 23:59:00 Nadim Jorge [id number] 2019-10-13 2019-10-14 Outpatient [facility] [id number] 13:24:03 13:24:03 03 2019-10-12 2019-10-12 Outpatient Therese [facility] [id number] 11:00:00 23:59:59 Nadim Jorge 00 2019-08-08 2019-08-08 Outpatient Estefania, MISCHER MHMISCHER [id number] 14:45:00 23:59:59 Ruy 03 Valentín 2019-06-27 2019-06-27 Outpatient Estefania MISCHER MHMISCHER [id number] 15:45:00 23:59:59 Ruy 02 Valentín 2019-05-18 2019-05-18 Outpatient Estefania MISCHER MHMISCHER [id number] 14:30:00 23:59:59 Ruy Valentín 2019-04-03 2019-04-03 Outpatient Estefania, MISCHER MHMISCHER [id number] 13:00:00 23:59:59 Ruy 00 Valentín 2017-02-27 2017-02-27 Outpatient Wenceslao, PL [facility] [id number] 17:07:00 20:28:00 Spike Jules Results Test Description Test Time Test Comments Results Result Sour e Comments ECG 12 lead 2020-01-19 Interface, External Ris [facility] - 02/13/2020 6:29 Ashley es - 06:29:35 AM CDTVentricular Rate Me dical 94 BPMAtrial Rate 94 Cent er BPMP-R Interval 124 msQRS Duration 72 msQ-T Interval 378 msQTC Calculation(Bazett) 472 msP Valencia 5 degreesR Valencia -1 degreesT Valencia 23 degreesNormal sinus rhythmNormal ECGNo previous ECGs availableConfirmed by MD CB, AGUILA Colin ([id number]) on 02/13/2020 6:29:32 AM SARS-CoV2/RT-PCR (Symptomatic ONLY) 2020-02-12 19:30:00 Test Item Value Reference Range Interpretation Comme nts SARS-COV2/RT-PCR (test code = Not Detected Not Detected, Negative 15959-1) SARS-COV-2 PERFORMING LAB [facility] (test code = 22447-6) MARGARITA (test code = MARGARITA) Negative results [...] of the Act. Fact Sheet for Healthcare Providers:https://www.[employer]/Documents/Xpert%20Xpress %20SARS%20CoV-2/Fact%20Sheets /3023802%53TPOR-YTP-2%20HEAL THCARE%20PROVIDERS%20FACT%20S HEET.pdf Fact Sheet for Healthcare Patients:https://www.[employer] com/Documents/Xpert%20Xpress% 20SARS%20CoV-2/Fact%20Sheets/ 3023801%12GPPB-HZG-2%20PATIE NT%20FACT%20SHEET.pdf Performing Laboratory:[facility] [place] [place] [address] [facility] ([facility] REF [facility])2020-02-12 19:30:00 Test Item Value Reference Range Interpretation Comments SARS-COV2/RT-PCR (test Not Detected Not Detected, Negative code = 0878928) SARS-COV-2 PERFORMING LAB [facility] (test code = 8148432) Negative results do not preclude SARS-CoV-2 infection [...] of the Act.Fact Sheet for Healthcare Pro viders:https://www.[employer]/Documents/Xpert%20Xpress%20SARS%20CoV-2/Fact%20Sh eets/3023802%03XBKE-CTS-7%20HEALTHCARE%20PROVIDERS%20FACT%20SHEET.pdfFact Sheet for Healthcare Patients:https://www.[employer]/Documents/Xpert%20Xpress%20SARS%20CoV-2/Fact%20Sheets/3023801%20SARS-COV -2%20PATIENT%20FACT%20SHEET.pdfPerforming Laboratory:[facility], [place] [address]Oxvaffjo [id number] 18:17:00 Test Item Value Reference Range Interpretation Comments Troponin I (test code = <0.01 0-0.03 45826-1) MARGARITA (test code = MARGARITA) Troponin I [...] E Lab Interpretation (test Normal code = 40812-5) [id number] 18:17:00 Test Item Value Reference Range Interpretation [...] failure, acidosis, acute neurological disease, and persistent tachyarrhythmia.[employer] EB-type Natriuretic Factor (BNP)2020-02-12 18:10:00 Test Item Value Reference Range Interpretation Comments BNP (test code = 56908-3) 18 pg/mL 0-100 MARGARITA (test code = MARGARITA) [employer] E Lab Interpretation (test Normal code = 84360-3) [facility] NATRIURET[facility] FACTOR (BNP)2020-02-12 18:10:00 Test Item Value Reference Range Interpretation Comments B-TYPE NATRIURETIC PEPTIDE (BEAKER) 18 pg/mL 0-100 (test code = 700) [employer] [employer] EBasic Metabolic [id number] 18:07:00 Test Item Value Reference Range Interpretation Comments Sodium (test code = 139 meq/L 160-407 9535-2) Potassium (test code 3.8 meq/L 3.5-5.1 = 2823-3) Chloride (test code = 106 meq/L 98-107 2075-0) CO2 (test code = 25 meq/L 22-29 2028-9) BUN (test code = 10 mg/dL 7-21 3094-0) Creatinine (test code 0.70 mg/dL 0.57-1.25 = 2160-0) Glucose (test code = 184 mg/dL 70-105 H 2345-7) Calcium (test code = 8.8 mg/dL 8.4-10.2 17565-4) EGFR (test code = 107 mL/min/1.73 sq m INSUFF ICIENT 05991-8) CLINICAL DATA T O CALCULATE ESTIMATED GFR. MARGARITA (test code = MARGARITA) [employer] KRISTINA Sindi CHRIS Edel Lab Interpretation Abnormal (test code = 15247-1) [facility] METABOLIC [id number] 18:07:00 Test Item Value Reference Range Interpretation [...] DATA TO CALCU LATE m ESTIMATED GFR. [employer] KRISTINA Sindi CHRIS ERAD, CHEST, 2 [id number] 17:35:00Reason for exam:->WHEEZINGFINAL REPORT TECHNIQUE: Frontal and [...] [place] Verified Date/Time: 02/12/2020 17:35:52 Reading Location: [address] Transitional Reading Room XR chest 2 [id number] 17:35:00Interface, External Ris In - 02/12/2020 5:38 [...] MDReport Verified Date/Time: 02/12/2020 17:35:52 Reading Location: [address] Transitional Reading Room Electronicallysigned by: DARSHANA GRIGSBY MD on 02/12/2020 05:35 [facility] CBC with platelet count + automated [id number] 17:34:00 Test Item Value Reference Range Interpretation [...] 450 K/CU MM MPV (test code = 20217-4) 10.8 fL 9.4-12.3 nRBC (test code = [...] 2801) Lab Interpretation (test code = Abnormal 86163-5) [facility] W/PLT COUNT & AUTO [id number] 17:34:00 Test Item Value Reference Range Interpretation [...] PERCENT (BEAKER) (test code = 2801) CHEM [id number] 22:38:0095[facility] FMVEJ7723-82-21 22:38:0013 [facility] EGJYC0830-91-49 22:38:0010[facility]annCHE[facility] PANEL 2017-02-27 22:38:000.74[facility]ann[facility] NWELQ2531-67-16 22:38:0028[facility]ann[facility] BLIWV7498-38-80 22:38:003.6[facility] WZFGV8439-84-22 22:38:0081[facility]annCHE[facility] ESGYG5852-83-61 22:38:30108Zqgitqxk HermannCHEM TRITJ7360-44-22 22:38:000.3[facility]annCHE[facility] YISGZ9073-96-85 22:38:35895 [facility] SFIHJ0786-54-08 22:38:007.9[facility]annCHEM PANEL 2017-02-27 22:38:008.9[facility]annCHE[facility] EJYDB0438-74-35 22:38:52434Qmdahlql HermannCHEM VLIDC0328-54-20 22:38:003.9[facility]ann[facility] YKHQD9829-25-56 22:38:0029[facility] LPIQX5738-70-36 22:38:000.8[facility]annCHE[facility] JERDV9059-10-57 22:38:0010.9[facility]ann[facility] SQQFG6081-15-82 22:38:004.3 [facility] KQTCB1316-03-63 22:38:0014[facility]annCHEM PANEL 2017-02-27 22:38:17612Didmxdmc ClcrqcmCIOXPODFFPTXX6221-17-67 22:38:001[facility] WfnsbtoSZNNYZRLUI5384-51-38 22:38:0064.7[facility] CszjbyzACJNBUSCPQ4741-71-92 22:38:002.9[facility] OyhvoszWPVXKNMWDK1554-24-34 22:38:000.1[facility] Srini EGOINLHEQG1298-96-80 22:38:000.4[facility] LqnxslbGDXUELSNOI9828-02-20 22:38:000.9 [facility] QmepvflFHHGMNRJJY4757-15-31 22:38:007.8[facility]annHEMATOLOGY 2017-02-27 22:38:003.2[facility] EoigoxqKPYZIXOGXI4548-02-06 22:38:007.4[facility] DtdpvsqMDIWEOIZZQ6014-15-19 22:38:0024.1[facility] TwrlvujFEERIJGQBB6127-97-51 22:38:000.6[facility] FltqrjbQQVYXIOJIW2889-50-94 22:38:0040.4[facility] [place] LFTIOPMMRS3857-44-99 22:38:0013.9[facility] CenokkqIEHHRUKYST4702-54-61 22:38:00 4.61[facility] IqfdwakDLXMGCOAQE7538-74-41 22:38:0012.0[facility]annHEMATOLOGY 2017-02-27 22:38:008.1[facility] TikeoarLZYJAAGUBX7030-71-43 22:38:0013.9[facility] OusefnhTRRKCBYJLT1225-33-46 22:38:73982Fdtkgfvh FimdnekXFGMMXOWTN9846-19-73 22:38:0034.5[facility] IbwkhejNTVJCJRAZP1491-01-71 22:38:00 Test Item Value Reference Range Interpretation Comments MCH (test code = MCH) 30.2 pg 27.0-31.0 [facility] HsolozzQNPGQATELT4724-14-96 22:38:0087.5[facility]annURINE AND STOOL 2017-02-27 22:29:00See Note (02/27/17 5:29 PM)[facility] STOOL 2017-02-27 22:29:00Moderate *ABN*(02/27/17 5:29 PM)[facility] JPXRZ0874-53-87 22:29:004.0[facility] VZRIK6818-64-44 22:29:00See Note 1(02/27/17 5:29 PM)[facility] FCOMQ0213-52-67 22:29:00 Negative *NA*(02/27/17 5:29 PM)[facility] GOPQP8045-24-81 22:29:00 See Note (02/27/17 5:29 PM)[facility] OSYUZ5905-62-73 22:29:00 Large *ABN*(02/27/17 5:29 PM)[facility] ZBUOX5726-18-38 22:29:00 Slight Cloudy (02/27/17 5:29 PM)[facility] YGXAN3045-50-43 22:29:00>=1.030 *ABN*(02/27/17 5:29 PM)[facility] STOOL 2017-02-27 22:29:00 Test Item Value Reference Range Interpretation Comments UA pH (test code = UA pH) 5.5 1 5.0-8.0 [facility] VCZRH1577-08-07 22:29:00Orange *ABN*(02/27/17 5:29 PM) [facility] [id number] 22:29:00Negative (02/27/17 5:29 PM)[facility] HdqpyniCmdsuwhwn6649-89-19 16:20:005.5[facility] LxkgydjYvbbklcnk5172-36-86 16:20:12012Lcjypqap JwhntpaGwohbudup4470-77-69 16:20:60208Zyigsfhh [place] Wvhogvyco8884-27-71 16:20:0036[facility] TjeskqnSfwmrlvdl2205-25-33 16:20:0090 [facility] YixcukgRmdyuxoah7924-69-11 15:30:92651Lmufktyx HermannChemistry 2014-01-17 15:30:45035Rrpidllm YylltnuIwixmbxuv2729-82-23 15:30:0031[facility] FwkjwhxLjehturnk7788-40-63 15:30:00See Note mg/dLMemorial HermannChemistry 2014-01-17 15:30:87209 MEQ/LMemorial XgyidyoEbkkerwwp5586-20-63 15:30:004.6 MEQ/LMemorial IlpaxlqSyxmktbct4056-63-17 15:30:000.7[facility] HermannChemistry 2014-01-17 15:30:0015[facility] FqhfvkeHsdxtmrfi5765-40-65 15:30:00 Test Item Value Reference Range Interpretation Comments BUN/CREAT (test code = BUN/CREAT) 21 1 6-25 [facility] TiurqknMscdjhaxk4765-13-77 15:30:004.3[facility] HermannChemistry 2014-01-17 15:30:009.0[facility] LenltwxBxskpdtbn7669-52-33 15:30:0030[facility] FgvzdpyZfniplcfj6734-30-30 15:30:0012[facility] PtwqickOeqsusiwu9927-73-26 15:30:0073[facility] CrvkxdcMjmwwzrec0139-15-08 15:30:001.680[facility] Srini Uwwwpmznr5020-05-19 15:30:51876Gbcfkvsg ZfkyfwoJqtgtmyti7680-00-68 15:30:67794 Memorial KzveaniWwzkxnnzf5648-53-25 15:30:0031[facility]annChemistry 2014-01-17 15:30:00See Note mg/dLMemorial JercjazQydfyqpds1348-79-08 15:30:80024 MEQ/LMemorial AnhcdmfUodohjqyc0782-44-51 15:30:004.6 MEQ/LMemorial Srini Qfwxspfvu3928-20-04 15:30:000.7[facility] CxevlukIzvygudmb9628-55-03 15:30:0015 [facility] GoeesnvRxuqnelkr9100-10-33 15:30:00 Test Item Value Reference Range Interpretation Comments BUN/CREAT (test code = BUN/CREAT) 21 1 6-25 Memorial YdpvrptZtpukgsnf8474-62-61 15:30:004.3[facility] HermannChemistry 2014-01-17 15:30:009.0[facility] OnlltxaKtgetlohu7711-42-85 15:30:0030[facility] ZgeivpmPbdtwmkqi3483-17-50 15:30:0012[facility] HukjzeuBwvizskpz7625-14-46 15:30:0073[facility] YithahmTercacyae2650-58-51 15:30:001.680[facility] Srini Rbzoxdxmcj1417-21-97 15:30:0014.9[facility] MhzkokxZfswpzepjj0786-37-39 15:30:00 43.8[facility] PiohdzeXqjuaoqwzf3720-54-13 15:30:14130 K/CMMMemorial [place] Makkriufgg9289-49-45 15:30:0014.9[facility] ZlhajvvQsoonxkekw4453-20-99 15:30:00 43.8[facility] MoyvhvjNuiiwiinnt7477-84-32 15:30:65899 K/CMMMemorial HermannOb/Rn Navigator 2013-02-17 14:53:37CompleteMemorial HermannOb/Rqi5986-05-38 14:53:37Complete Memorial DpmpwhaZwznbvzqj1640-32-78 14:53:37CompleteMemorial HermannPathology 2013-02-17 14:53:37CompleteMemorial Valley [place]
[2020-03-24] MEDS ORDERED: MORPHINE 4 MG/ML SYR ONE ×2 (19:59→22:22)
[2020-03-24] MEDS ORDERED: ONDANSETRON 4 MG/2 ML VIAL ONE (19:59)
[2020-03-24] MEDS ORDERED: NA CHLORIDE 0.9% 2,000 ML ONE (20:00)
[2020-03-24 20:24] LABS: Absolute Lymphocytes (CBC) 1.5 K/uL (0.7-4.9); Basophils % 0.4 % (0-1.3); Hematocrit 38.3 % (36.0-45.0); Lymphocytes % 58.8 % (15.3-44.8); MPV 8.7 fL (7.6-11.3); RBC Red Blood Cell Count 4.45 M/uL (3.86-4.86)
[2020-03-24 20:29] LABS: Albumin 3.8 g/dL (3.4-5.0); Bilirubin Direct 0.1 mg/dL (0-0.2); Bilirubin Total 0.4 mg/dL (0.2-1.0); Potassium 4.2 mmol/L (3.5-5.1)
[2020-03-24 23:13] LABS: Blood Morphology Comment NOT SEEN (NOT SEEN); Platelet Estimate ADEQ; Urine White Blood Cell Casts OK
--- NOTE | 2020-03-24 23:28 | EDPHYS ---
Physician Documentation [facility] Name: Kelley Ordaz Age: 49 yrs Sex: Female : 1970 Arrival Date: 03/24/2020 Time: 17:52 Bed 7 Private MD: ED Physician Lyndon Leon HPI: 03/24 19:50 This 49 yrs old Female presents to ER via Wheelchair with complaints of pkl Abdominal Pain, Weakness. 19:50 The patient presents with abdominal pain in the lower abdomen. Onset: The pkl symptoms/episode began/occurred just prior to arrival, 3 hour(s) ago. The symptoms radiate to back. Associated signs and symptoms: Pertinent positives: nausea, weakness. The patient has experienced similar episodes in the past, several times. The patient has been recently been admitted at [facility], was discharged a couple of weeks ago, for similar complaints. Patient said she has H/O of diverticulitis. Was admitted here 2 weeks ago for similar complaints and D/C the next day.. 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 - Social history:: Smoking status: unknown. ROS: 19:55 Eyes: Negative for injury, pain, redness, and discharge, ENT: Negative for injury, pkl pain, and discharge, Neck: Negative for injury, pain, and swelling, Cardiovascular: Negative for chest pain, palpitations, and edema, Respiratory: Negative for shortness of breath, cough, wheezing, and pleuritic chest pain. 19:55 Abdomen/GI: Positive for abdominal pain, nausea, of the right lower quadrant and left lower quadrant. 19:55 Back: Positive for pain at rest. 19:55 : Negative for urinary symptoms. 19:55 MS/extremity: Negative for acute changes. 19:55 Skin: Negative for rash. 19:55 Neuro: Negative for altered mental status, loss of consciousness. Exam: 19:55 Head/Face: Normocephalic, atraumatic. Eyes: Pupils equal round and reactive to light, pkl extra-ocular motions intact. Lids and lashes normal. Conjunctiva and sclera are non-icteric and not injected. Cornea within normal limits. Periorbital areas with no swelling, redness, or edema. ENT: Nares patent. No nasal discharge, no septal abnormalities noted. Tympanic membranes are normal and external auditory canals are clear. Oropharynx with no redness, swelling, or masses, exudates, or evidence of obstruction, uvula midline. Mucous membranes moist. Neck: Trachea midline, no thyromegaly or masses palpated, and no cervical lymphadenopathy. Supple, full range of motion without nuchal rigidity, or vertebral point tenderness. No Meningismus. Chest/axilla: Normal chest wall appearance and motion. Nontender with no deformity. No lesions are appreciated. Cardiovascular: Regular rate and rhythm with a normal S1 and S2. No gallops, murmurs, or rubs. Normal PMI, no JVD. No pulse deficits. Respiratory: Lungs have equal breath sounds bilaterally, clear to auscultation and percussion. No rales, rhonchi or wheezes noted. No increased work of breathing, no retractions or nasal flaring. 19:55 Abdomen/GI: Bowel sounds: normal, Palpation: soft, mild abdominal tenderness, in the right lower quadrant and left lower quadrant. 19:55 Back: pain, that is moderate, of the lower back. 19:55 Musculoskeletal/extremity: Exam is negative for acute changes. 19:55 Skin: Exam negative for rash. 19:55 Neuro: Orientation: is normal, Mentation: is normal, Cranial nerves: grossly normal, Motor: is normal. Vital Signs: 18:27 BP 95 / 63; Pulse 98; Resp 20; Temp 98.6(O); Pulse Ox 98% on R/A; Weight 101.6 kg; sv Height 5 ft. 6 in. (167.64 cm); 20:32 BP 101 / 61; Pulse 81; Resp 16 S; Pulse Ox 97% on R/A; jd3 21:23 BP 92 / 47; Pulse 82; Resp 17 S; Pulse Ox 100% on R/A; jd3 22:07 BP 109 / 67; Pulse 78; Resp 15 S; Pulse Ox 96% on R/A; jd3 23:39 BP 105 / 51; Pulse 72; Resp 17 S; Pulse Ox 96% on R/A; jd3 18:27 Body Mass Index 36.15 (101.60 kg, 167.64 cm) sv MDM: 19:34 Patient medically screened. pkl 23:24 Data reviewed: vital signs, nurses notes, lab test result(s), radiologic studies, CT pkl scan. ED course: patient feeling better. Discussed lab. and CT Scan results with patient. Advised to keep her appt. with her oncologist this . patient understood instruction. 03/24 19:44 Order name: Basic Metabolic Panel; Complete Time: 20:32 pkl 03/24 19:44 Order name: CBC with Diff; Complete Time: 23:20 pkl 03/24 19:44 Order name: Hepatic Function; Complete Time: 20:32 pkl 03/24 19:44 Order name: Lipase; Complete Time: 20:32 pkl 03/24 23:13 Order name: CBC Smear Scan; Complete Time: 23:20 EDMS 03/24 19:44 Order name: IV Saline Lock; Complete Time: 20:07 pkl 03/24 19:44 Order name: Labs collected and sent; Complete Time: 20:07 pkl 03/24 19:49 Order name: Abdomen EDMS Administered Medications: 20:06 Drug: morphine 4 mg Route: IVP; Site: left antecubital; jd3 21:00 Follow up: Response: No adverse reaction; RASS: Alert and Calm (0) jd3 20:06 Drug: Zofran (Ondansetron) 4 mg Route: IVP; Site: left antecubital; jd3 21:00 Follow up: Response: No adverse reaction jd3 20:07 Drug: NS 0.9% 1000 ml Route: IV; Rate: 1000 ml; Site: left antecubital; jd3 21:00 Follow up: Response: No adverse reaction; IV Status: Completed infusion; IV Intake: jd3 1000ml 20:07 Drug: NS 0.9% 1000 ml Route: IV; Rate: 125 ml/hr; Site: left antecubital; jd3 23:43 Follow up: Response: No adverse reaction; IV Status: Order to discontinue infusion jd3 22:17 Drug: morphine 4 mg Route: IVP; Site: left antecubital; jd3 23:15 Follow up: Response: No adverse reaction; RASS: Alert and Calm (0) jd3 Disposition: 03/24/20 23:27 Discharged to Home. Impression: Abdominal pain. Advanced pancreatic cancer. - Condition is Stable. - Prescriptions for Tylenol- Codeine #3 300-30 mg Oral Tablet - take 2 tablets by ORAL route every 8 hours As needed; 30 tablet. Zofran 4 mg Oral Tablet - take 1 tablet by ORAL route every 12 hours As needed; 12 tablet. - Medication Reconciliation Form, Thank You Letter, Antibiotic Education, Prescription Opioid Use form. - Follow up: Private Physician; When: 2 - 3 days; Reason: Re-evaluation by your physician. - Problem is new. - Symptoms have improved. Signatures: Dispatcher [employer] Mayra Boykin RN RN sv Lam, Pin, MD MD pkChamp Calloway RN RN jd3 Corrections: (The following items were deleted from the chart) 19:49 19:47 Abdomen Pelvis W Con+CT.RAD.BRZ ordered. [facility] 03/25 00:05 03/24 23:27 03/24/2020 23:27 Discharged to Home. Impression: Abdominal pain. Advanced jd3 pancreatic cancer. Condition is Stable. Forms are Medication Reconciliation Form, Thank You Letter, Antibiotic Education, Prescription Opioid Use. Follow up: Private Physician; When: 2 - 3 days; Reason: Re-evaluation by your physician. Problem is new. Symptoms have improved. pkl
--- NOTE | 2020-03-24 23:28 | ER ---
Nurse's Notes [facility] Name: Kelley Ordaz Age: 49 yrs Sex: Female : 1970 Arrival Date: 03/24/2020 Time: 17:52 Bed 7 Private MD: Diagnosis: Abdominal pain. Advanced pancreatic cancer Presentation: 03/24 18:25 Chief complaint: Patient states: lower abd pain, nausea, lightheaded, generalized sv weakness 2 hours ago. Coronavirus screen: Proceed with normal triage. Patient denies a cough. Patient denies shortness of breath or difficulty breathing. Patient denies measured and/or subjective temperature greater than 100.4F prior to today's visit. Patient denies travel on a cruise ship or to a country the [facility] currently lists as an affected area. Patient denies contact with known and/or suspected case of COVID-19. Ebola Screen: No symptoms or risks identified at this time. Risk Assessment: Do you want to hurt yourself or someone else? Patient reports no desire to harm self or others. Onset of symptoms was March 24, 2020. 18:25 Method Of Arrival: Wheelchair sv 18:25 Acuity: DEJUAN 3 sv 18:27 Initial Sepsis Screen: Does the patient meet any 2 criteria? HR > 90 bpm. No. Patient's sv initial sepsis screen is negative. Does the patient have a suspected source of infection? Yes: Acute abdominal pain. Triage Assessment: 18:25 General: Appears in no apparent distress. uncomfortable, Behavior is calm, cooperative, sv appropriate for age. Pain: Complains of pain in right lower quadrant and left lower quadrant. Neuro: Level of Consciousness is awake, alert, obeys commands, Oriented to person, place, time, situation, Appropriate for age Reports weakness. Respiratory: Respiratory effort is even, unlabored. GI: Reports lower abdominal pain, nausea. DEAL[employer] REP: 23:39 LMP N/A - Irregular menses jd3 Historical: - Allergies: 18:27 Iodine (Respiratory distress); sv - PMHx: 18:27 High Cholesterol; Hypertension; CAD; Diverticulitis; Diabetes - NIDDM; Depression; sv Diabetes - IDDM; Myocardial infarction; Pancreatitis; Pancreatic cancer; - PSHx: 18:27 D \T\ C; Tubal ligation; Heart stents; TURP; Carpal Tunnel Repair; sv - Immunization history:: Adult Immunizations up to date. - Social history:: Smoking status: unknown. Screenin:46 Abuse screen: Denies threats or abuse. Nutritional screening: No deficits noted. jd3 Tuberculosis screening: No symptoms or risk factors identified. Fall Risk No IV (0 pts). Assessment: 19:43 General: Appears in no apparent distress. uncomfortable, Behavior is calm, cooperative, jd3 appropriate for age. Pain: Complains of pain in abdomen Quality of pain is described as aching, tender. Neuro: Level of Consciousness is awake, alert, obeys commands, Oriented to person, place, time, situation. Cardiovascular: Denies chest pain, Capillary refill < 3 seconds Patient's skin is warm and dry. Respiratory: Airway is patent Respiratory effort is even, unlabored, Respiratory pattern is regular, symmetrical, Denies cough, shortness of breath. GI: Abdomen is round non-distended, Abd is soft X 4 quads Abdomen is tender to palpation X 4 quads. Patient currently denies abdominal pain. : No signs and/or symptoms were reported regarding the genitourinary system. EENT: No signs and/or symptoms were reported regarding the EENT system. Derm: Skin is intact, Skin is dry, Skin is normal, Skin temperature is warm. Musculoskeletal: Circulation, motion, and sensation intact. Range of motion: intact in all extremities. 20:31 Reassessment: Patient and/or family updated on plan of care and expected duration. Pain jd3 level reassessed. Patient is alert, oriented x 3, equal unlabored respirations, skin warm/dry/pink. CT notified of pt finishing PO contrast. Patient states feeling better. 21:23 Reassessment: Patient appears in no apparent distress at this time. Patient and/or jd3 family updated on plan of care and expected duration. Pain level reassessed. Patient is alert, oriented x 3, equal unlabored respirations, skin warm/dry/pink. Patient states feeling better. 22:07 Reassessment: Patient and/or family updated on plan of care and expected duration. Pain jd3 level reassessed. Patient is alert, oriented x 3, equal unlabored respirations, skin warm/dry/pink. awaiting CT results, pt reporting returning pain, provider notified. 23:41 Reassessment: Patient appears in no apparent distress at this time. Patient and/or jd3 family updated on plan of care and expected duration. Pain level reassessed. Patient is alert, oriented x 3, equal unlabored respirations, skin warm/dry/pink. awaiting family to arrive for pt discharge. Patient states feeling better. Vital Signs: 18:27 BP 95 / 63; Pulse 98; Resp 20; Temp 98.6(O); Pulse Ox 98% on R/A; Weight 101.6 kg; sv Height 5 ft. 6 in. (167.64 cm); 20:32 BP 101 / 61; Pulse 81; Resp 16 S; Pulse Ox 97% on R/A; jd3 21:23 BP 92 / 47; Pulse 82; Resp 17 S; Pulse Ox 100% on R/A; jd3 22:07 BP 109 / 67; Pulse 78; Resp 15 S; Pulse Ox 96% on R/A; jd3 23:39 BP 105 / 51; Pulse 72; Resp 17 S; Pulse Ox 96% on R/A; jd3 18:27 Body Mass Index 36.15 (101.60 kg, 167.64 cm) sv ED Course: 17:52 Patient arrived in ED. mr 18:26 Triage completed. sv 18:27 Arm band placed on. sv 19:34 Lyndon Leon MD is Attending Physician. pkl 19:40 Champ Stiles, ABI is Primary Nurse. jd3 19:45 Patient has correct armband on for positive identification. Bed in low position. Call jd3 light in reach. Side rails up X 1. Pulse ox on. NIBP on. 20:02 Inserted saline lock: 20 gauge in left antecubital area, using aseptic technique. tt3 20:02 Initial lab(s) drawn, by me, sent to lab. tt3 22:09 Abdomen In Process Unspecified. EDMS 23:39 No provider procedures requiring assistance completed. IV discontinued, intact, jd3 bleeding controlled, No redness/swelling at site. Pressure dressing applied. Administered Medications: 20:06 Drug: morphine 4 mg Route: IVP; Site: left antecubital; jd3 21:00 Follow up: Response: No adverse reaction; RASS: Alert and Calm (0) jd3 20:06 Drug: Zofran (Ondansetron) 4 mg Route: IVP; Site: left antecubital; jd3 21:00 Follow up: Response: No adverse reaction jd3 20:07 Drug: NS 0.9% 1000 ml Route: IV; Rate: 1000 ml; Site: left antecubital; jd3 21:00 Follow up: Response: No adverse reaction; IV Status: Completed infusion; IV Intake: jd3 1000ml 20:07 Drug: NS 0.9% 1000 ml Route: IV; Rate: 125 ml/hr; Site: left antecubital; jd3 23:43 Follow up: Response: No adverse reaction; IV Status: Order to discontinue infusion jd3 22:17 Drug: morphine 4 mg Route: IVP; Site: left antecubital; jd3 23:15 Follow up: Response: No adverse reaction; RASS: Alert and Calm (0) jd3 Intake: 21:00 IV: 1000ml; Total: 1000ml. jd3 Outcome: 23:27 Discharge ordered by . pkzach 23:40 Condition: stable jd3 23:40 Discharge instructions given to patient, Instructed on discharge instructions, follow up and referral plans. medication usage, Demonstrated understanding of instructions, follow-up care, medications, Prescriptions given X 2. 07 00:05 Discharged to home ambulatory, with family. jd3 00:05 Patient left the ED. jd3 Signatures: Dispatcher [employer] EDMayra Mendiola RN RN sv Lam, Pin, MD MD pkl Rivera, Mary mr DaviesChamp RN RN jolesya Link, Manpreet tt3 Corrections: (The following items were deleted from the chart) 03/24 18:30 18:27 Initial Sepsis Screen: Does the patient meet any 2 criteria? HR > 90 bpm. No. sv Patient's initial sepsis screen is negative. Does the patient have a suspected source of infection? Yes: Acute abdominal pain sv 18:30 18:27 Pulse 98bpm; Resp 20bpm; Pulse Ox 98% RA; Temp 98.6F Oral; 101.6 kg; Height 5 ft. sv 6 in.; BMI: 36.1; sv 18:42 18:25 GI: Reports lower abdominal pain, sv sv 22:17 22:07 Reassessment: Patient and/or family updated on plan of care and expected jd3 duration. Pain level reassessed. Patient is alert, oriented x 3, equal unlabored respirations, skin warm/dry/pink. awaiting CT results Patient states feeling better. jd3 23:42 23:41 Reassessment: Patient appears in no apparent distress at this time. Patient jd3 and/or family updated on plan of care and expected duration. Pain level reassessed. Patient is alert, oriented x 3, equal unlabored respirations, skin warm/dry/pink. Patient states feeling better. jd3
[2020-03-25 00:44] VITALS: TEMP 98.6
[2020-03-25 00:46] VITALS: O2SAT 96
[2020-03-25 00:47] VITALS: BP 105/51
--- NOTE | 2020-03-25 12:25 | RAD REPORT ---
EXAM DESCRIPTION: CT - Abdomen Pelvis Wo Contrast - 03/25/2020 3:57 am CLINICAL HISTORY: ABD PAIN COMPARISON: 03/09/2020 TECHNIQUE: CT of the abdomen and pelvis without IV contrast. Evaluation of the solid organs and vasc ulature is suboptimal due to lack of IV contrast. FINDINGS: Lung Bases: The visualized lung bases are clear. Bones: Mild degenerative endplate spondylosis. Abdomen: Liver: The liver has normal size. Redemonstrated hypodensity in the right hepatic lobe is stable and nonspecific. Gallbladder: No calcified gallstones. Spleen, Pancreas, and Adrenal Glands: The spleen and adrenal glands are unremarkable. Redemonstrate d fullness involving the body of the pancreas with peripancreatic lymphadenopathy. No peripancreatic fluid collections. Kidneys: The kidneys have normal size without evidence of hydronephrosis. No obstructing ureteral johnny culi. Nonobstructing calculus in left kidney. Vasculature: Aortoiliac atherosclerosis. IVC is unremarkable. Stomach: The stomach and duodenum have normal course. Other: No free intraperitoneal air. No free fluid. Pelvis: Bladder: Urinary bladder is unremarkable. Bowel: No dilated loops of large or small bowel. Scattered diverticula throughout the colon. No per ipancreatic inflammatory changes identified on this study. Appendix: Normal appendix. Pelvis: Uterus is not enlarged. IMPRESSION: 1. Redemonstrated fullness involving the body of the pancreas with peripancreatic lympha denopathy. This would be compatible with previously stated history of pancreatic neoplasm. Superimpos ed mild acute pancreatitis could contribute to this appearance. Correlation with serum lipase recomme nded. 2. Diverticulosis without evidence of acute diverticulitis. 3. Redemonstrated stable somewhat linear indeterminate hypodensity in the right hepatic lobe. 4. Nonobstructing left nephrolithiasis. This exam was performed according to our departmental dose-optimization program, which includes autom ated exposure control, adjustment of the mA and/or kV according to patient size and/or use of iterati ve reconstruction technique. Electronically signed by: Jimbo Hernandez 03/24/2020 10:40 PM CDT Due to temporary technical issues with the PACS/Fluency reporting system, reports are being signed by the in house radiologist without review as a courtesy to ensure prompt reporting. The interpreting r adiologist is fully responsible for the content of the report.
== END 2020-03-25 00:05 | disposition home or self-care (01) ==
LOC: ER 17:49
DX: C25.9 Malignant neoplasm of pancreas, unspecified (principal); I10 Essential (primary) hypertension; Z95.818 Presence of other cardiac implants and grafts; Z88.8 Allergy status to other drugs, medicaments and biological substances
CPT/HCPCS: 96361; 85025; 80048; 36415; 80076; 83690; 74176; 96375; 96374; 99284; J7030; J2405

== ENCOUNTER 2020-04-07 21:32 | Observation (INO) | payer BC ==
--- OUTSIDE RECORDS SUMMARY | 2020-04-07 21:34 | XMS REPORT | Clinical Summary ---
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
--- OUTSIDE RECORDS SUMMARY | 2020-04-07 21:35 | XMS REPORT | Clinical Summary ---
:1970 Author Organization [facility] Address [address] [place] [address] Care Team Providers Name Role Phone Pcp, [...] Only General Internal Medicine 02/12/2020 Travel after 04/07/2019 Social History Tobacco Use Types Packs/Day Years [...] 378 ms QTC Calculation(Bazett) 472 ms P Burbank 5 degrees R Burbank -1 degrees T [place]urbank 23 degrees Normal sinus rhythm Normal ECG No previous ECGs available ECG 12-LEAD STAT 02/12/2020 4:18 PM CDT Resu lts for this procedure are in the results section . after 04/07/2019 Results XR chest 2 views (02/12/2020 5:30 PM CDT) Specimen Narrative Performed At FINAL REPORT [facility] TECHNIQUE: Frontal and lateral chest rad [...] MD Report Verified Date/Time:02/12/2020 17:35:52 Reading Location: [address] [facility] Room Procedure Note Interface, External Ris [...] Verified Date/Time: 02/12/2020 1 7:35:52 Reading Location: [address] [facility] Performing Organization Address City/State/Zipcode Phone Number [facility] SARS-CoV2/RT-PCR (Symptomatic ONLY) (02/12/2020 5:15 PM CDT) SARS-COV2/RT-PCR Not Detected Not Detected, Negative [facility] SARS-COV-2 PERFORMING LAB BSC [facility] Specimen Other Narrative Performed At Negative results do not preclude SARS-CoV-2 [facility] infection and should not be used as [...] the Act. Fact Sheet for Healthcare Providers: https://www.[employer]/Documents/Xpert%20Xpre ss%20SARS%20CoV-2/Fact%20Sheets/3023802%20SAR S-COV-2%20HEALTHCARE%20PROVIDERS%20FACT%20SHEE T.pdf Fact Sheet for Healthcare Patients: https://www.[employer]/Documents/Xpert%20Xpre ss%20SARS%20CoV-2/Fact%20Sheets/3023801%20SAR S-COV-2%20PATIENT%20FACT%20SHEET.pdf Performing Laboratory: [address] [place] [address] Performing Organization Address City/State/Zipcode Phone Number [address] [address] CENTER CBC with platelet count + automated diff (02/12/2020 5:15 PM CDT) WBC 19.8 (H) 3.5 - 10.5 K/L [facility] RBC 5.14 3.93 - 5.22 M/L [facility] Hemoglobin 14.5 11.2 - 15.7 GM/DL [facility] Hematocrit 45.1 (H) 34.1 - 44.9 % [facility] MCV 87.7 79.4 - 94.8 fL [facility] MCH 28.2 25.6 - 32.2 pg [facility] MCHC 32.2 32.2 - 35.5 GM/DL [facility] RDW 12.6 11.7 - 14.4 % [facility] Platelets 217 150 - 450 K/CU MM [facility] MPV 10.8 9.4 - 12.3 fL [facility] nRBC 0 0 - 0 /100 WBC [facility] % Neutros 91 % [facility] % Lymphs 5 % [facility] % Monos 3 % [facility] % Eos 0 % [facility] % Baso 0 % [facility] # Neutros 18.10 (H) 1.56 - 6.13 K/L [facility] # Lymphs 0.90 (L) 1.18 - 3.74 K/L [facility] # Monos 0.62 (H) 0.24 - 0.36 K/L [facility] # Eos 0.02 (L) 0.04 - 0.36 K/L [facility] # Baso 0.05 0.01 - 0.08 K/L [facility] Immature 1 0 - 1 % [facility] Granulocytes-Relative [facility]TER Specimen Blood Performing Organization Address [facility] Phone Number [address] [address] CENTER Troponin I (02/12/2020 5:15 PM CDT) Troponin I <0.01 0.00 - 0.03 ng/mL [facility] Specimen Blood Narrative Performed At Troponin I (TnI) levels must be interpreted [facility] in the context of the presenting symptoms and the clinical findings. Elevated TnI levels indicate myocardial damage, but are not specific for ischemic heart disease. Elevated TnI levels are seen in patients with other cardiac conditions (including myocarditis and congestive heart failure), and slight TnI elevations occur in patients with other conditions, including sepsis, renal failure, acidosis, acute neurological disease, and persistent tachyarrhythmia. Tank Cooper ID - ARIES E Performing Organization Address City/[facility] Phone Number [address] [address] CENTER B-type Natriuretic Factor (BNP) (02/12/2020 5:15 PM CDT) BNP 18 0 - 100 pg/mL [facility] Specimen Blood Narrative Performed At Tank Cooper ID - ARIES E [facility] Performing Organization Address City/[facility]/Zipcode Phone Number [address] [address] CENTER Basic Metabolic Panel (02/12/2020 5:15 PM CDT) Sodium 139 136 - 145 meq/L [facility] Potassium 3.8 3.5 - 5.1 meq/L [facility] Chloride 106 98 - 107 meq/L [facility] CO2 25 22 - 29 meq/L [facility] BUN 10 7 - 21 mg/dL [facility] Creatinine 0.70 0.57 - 1.25 mg/dL [facility] Glucose 184 (H) 70 - 105 mg/dL [facility] Calcium 8.8 8.4 - 10.2 mg/dL [facility] EGFR 107Comment: INSUFFICIENT mL/min/1.73 sq m [facility] CLINICAL DATA TO CALCULATE [facility] ESTIMATED GFR. Specimen Blood Narrative Performed At Tank Cooper ID - ARIES E [facility] [place] Performing Organization Address City/State/Zipcode Phone Number [facility] [address] [place] [address] CENTER ECG 12 lead (02/12/2020 4:18 PM CDT) Specimen Narrative Performed At Ventricular Rate 94 BPM GE MUSE Atrial Rate 94 BPM P-R Interval 124 ms QRS Duration 72 ms Q-T Interval 378 ms QTC Calculation(Bazett) 472 ms P Burbank 5 degrees R Burbank -1 degrees T Burbank 23 degrees Normal sinus rhythm Normal ECG No previous ECGs available Confirmed by MD VIVAR JOSEPH P ([id number]) on 0 6:29:32 AM Procedure Note Interface, External Ris In - 02/13/2020 6:29 AM CDT Ventricular Rate 94 BPM Atrial Rate 94 BPM P-R Interval 124 ms QRS Duration 72 ms Q-T Interval 378 ms QTC Calculation(Bazett) 472 ms P Burbank 5 degrees R Burbank -1 degrees T Burbank 23 degrees Normal sinus rhythm Normal ECG No previous ECGs available Confirmed by MD VIVAR JOSEPH P ([id number]) on 02/13/2020 6:29:32 AM Performing Organization Address City/State/Zipcode Phone Number [employer] after 04/07/2019 Insurance Payer Benefit Plan / Group Subscriber ID Type Phone A ddress CDC REVIEW CDC REVIEW xxxxxxxx [address] [place], [place] [phone]
--- OUTSIDE RECORDS SUMMARY | 2020-04-07 21:36 | XMS REPORT | Continuity of Care Document ---
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 Neuro, [facility] [place] Temporomandibular Resolved Problem 04/04/2020 Data H [id number] 014 migrate d Medical syndrome (disorder) from [facility]is Cent[facility] jamee on 02/18/15. Neuro, [facility] [place] POLYDIPSIA Active Condition 08/23/2014 014 [facility] Excessive thirst Resolved Problem 04/04/2020 Data (finding) 014 migrated Medical from [facility],Mis Cent[facility]ity jamee on 02/18/15. Neuro, [facility] [place] RHINITIS Inactive Condition 08/23/2014 014 [facility] UTI Inactive Condition 08/23/2014 014 [facility] Urinary tract Resolved Problem 04/04/2020 Data infectious disease 014 migrated M edical (disorder) from [facility]is Cent[facility] jamee on 04/04/15. Neuro [facility] [place] HYPERTENSION Active Condition 08/23/2014 014 [facility] DYSLIPIDEMIA Active Condition 08/23/2014 014 [facility] ANXIETY DEPRESSION Active Condition 08/23/2014 014 [facility] OBESITY Active Condition 08/23/2014 014 [facility] PHYSICAL EXAMINATION Active Condition 08/23/2014 014 [facility] Dyslipidemia Active Problem 04/04/2020 Data MH (disorder) 014 migrated Medical from [facility],Mis Centricity jamee on 02/18/15. Neuro,[facility], [facility] [place] Hypertensive disorder, Active Problem 04/04/2020 Data MH systemic arterial 014 migrated Me dical (disorder) from Group,Mis Centricity jamee on 02/18/15. Neuro,[facility], [facility] [place] Mixed anxiety and Active Problem 04/04/2020 Data M H depressive disorder 014 migrated Medical (disorder) from [facility] Centricity jamee on 02/18/15. Neuro,[facility] [place] Obesity (disorder) Active Problem 04/04/2020 Data 014 migrated Medical from [facility],Mis Centricity jamee on 02/18/15. Neuro,[facility] [place] Diabetes mellitus Active Problem 04/04/2020 M H (disorder) Medical Group,Mis jamee Neuro, [facility] [place] Diverticulitis Resolved Problem 04/04/2020 MH (disorder) [facility],Mis j[facility]e Neuro,[facility] [place] Headache (finding) Active Problem 04/04/2020 [facility], [facility] [place] Hypercholesterolemia Active Problem 04/04/2020 (disorder) [facility],Mis j[facility]e Neuro,[facility] [place] Lumbar radiculopathy Active Problem 04/04/2020 (disorder) Medical [facility],Mis j[facility] Neuro, [facility] [place] Depressive disorder Active Problem 04/04/2020 (disorder) Medical Group,Mis j[facility]e Neuro,[facility] [place] Myocardial infarction Active Problem 04/04/2020 MH (disorder) [facility],Mis j[facility]e Neuro, [facility] [place] Dysarthria (finding) Active Problem 04/04/2020 [facility] Paresthesia (finding) Active Problem 04/04/2020 [facility] Medications Medication Details Route Status [...] cap, 3 Refill(s) , Pharmacy: [id number] repaglinide 2 mg oral 4 mg = [...] Active 500 MG Extended 1 tab, 2017 [place] Release Tablet PO, [Cipro] Daily, X 5 day, # 5 tab, 0 Refill(s) Benadryl 50 mg, Inactive Route: 2017 [place] IVP, ONCE, Dosing Weight 110.455, kg, Priority: STAT, Start date: 02/27/17 19:30:00 CDT, Stop date: 02/27/17 19:30:00 CDT Morphine 4 mg, Inactive Route: 2016 [place] IVP, ONCE, Dosing Weight 110.455, kg, Priority: STAT, Start date: 02/27/17 18:55:00 CDT, Stop date: 02/27/17 18:55:00 CDT Zofran 4 mg, Inactive Route: 2016 [place] IVP, Drug form: INJ, ONCE, Dosing Weight 110.455, kg, Priority: STAT, Start date: 02/27/17 18:55:00 CDT, Stop date: 02/27/17 18:55:00 CDT Saline Flush 0.9% Notes: Inactive (Same as: 2016 [place] BD Posiflush ) AMLODIPINE one daily Active [...] PANEL eGFR 95 02/27 Result Comment: The [place] eGFR is calculated using the CKD-EPI formula. [...] PANEL ASPARTATE 13 0 - 37 02/27 [place] CHEM PANEL BUN 10 7 - 22 02/27 [place] CHEM PANEL Creatinine 0.74 0.50 - 06 MH Lvl 1.40 [place] CHEM PANEL ALANINE 28 0 - 65 02/27 AMINO [place] ASE CHEM PANEL Albumin Lvl 3.6 3.5 - 5.0 02/27 [place] CHEM PANEL Alk Phos 81 39 - 136 02/27 [place] CHEM PANEL Glucose Lvl 123 70 - 99 02/27 [place] CHEM PANEL Bili Total 0.3 0.2 - 1.3 02/27 [place] CHEM PANEL Sodium Lvl 143 135 - 145 02/27 [place] CHEM PANEL Total Protein 7.9 6.4 - 8.4 02/27 [place] CHEM PANEL Calcium Lvl 8.9 8.5 - 10.5 02/27 [place] CHEM PANEL Chloride Lvl 107 95 - 109 02/27 [place] CHEM PANEL Potassium Lvl 3.9 3.5 - 5.1 02/27 [place] CHEM PANEL CO2 29 24 - 32 02/27 [place] CHEM PANEL A/G Ratio 0.8 0.7 - 1.6 02/27 [place] CHEM PANEL AGAP 10.9 10.0 - 02/27 MH 20.0 [place] CHEM PANEL Globulin 4.3 2.7 - 4.2 02/27 [place] CHEM PANEL B/C Ratio 14 6 - 25 02/27 [place] CHEM PANEL Lipase Lvl 157 73 - 393 02/27 [place] ENDOCRINOLO hCG Tot 1 02/27 [place] HEMATOLOGY Segs 64.7 45.0 - 02/27 MH 75.0 [place] HEMATOLOGY Lymphocytes # 2.9 1.0 - 5.5 02/27 [place] HEMATOLOGY Basophils # 0.1 0.0 - 0.2 02/27 [place] HEMATOLOGY Eosinophils # 0.4 0.0 - 0.5 02/27 [place] HEMATOLOGY Monocytes # 0.9 0.0 - 0.8 02/27 [place] HEMATOLOGY Segs-Bands # 7.8 1.5 - 8.1 02/27 [place] HEMATOLOGY Eosinophils 3.2 0.0 - 4.0 02/27 [place] HEMATOLOGY Monocytes 7.4 2.0 - 12.0 02/27 [place] HEMATOLOGY Lymphocytes 24.1 20.0 - 02/27 MH 40.0 [place] HEMATOLOGY Basophils 0.6 0.0 - 1.0 02/27 [place] HEMATOLOGY Hct 40.4 36.0 - 02/27 MH 48.0 [place] HEMATOLOGY Hgb 13.9 12.0 - 02/27 MH 16.0 [place] HEMATOLOGY RBC X 10x6 4.61 4.20 - 02/27 MH 5.40 [place] HEMATOLOGY WBC X 10x3 12.0 3.7 - 10.4 02/27 [place] HEMATOLOGY MPV 8.1 7.4 - 10.4 02/27 [place] HEMATOLOGY RDW 13.9 11.5 - 02/27 MH 14.5 [place] HEMATOLOGY Platelet 279 133 - 450 02/27 [place] HEMATOLOGY MCHC 34.5 32.0 - 02/27 MH 36.0 [place] HEMATOLOGY MCH 30.2 27.0 - 02/27 MH 31.0 [place] HEMATOLOGY MCV 87.5 80.0 - 02/27 MH 98.0 [place] URINE AND UA Bacteria Moderate None Seen 02/27 STOOL /HPF /HPF /2016 [place] URINE AND UA Sq Epi Few /LPF Few /LPF 02/27 STOOL /2016 [place] URINE AND UA WBC 11-20 None Seen 02/27 STOOL /HPF /HPF /2016 [place] URINE AND UA RBC 21-50 0 - 2 02/27 STOOL /HPF [place] URINE AND UA Nitrite See Note Negative 02/27 STO[place] (02/27/17 5:29 PM) /2016 [place] URINE AND UA Leuk Est Moderate Negative 02/27 STOOL *ABN* /2016 [place] (02/27/17 5:29 PM) URINE AND UA 4.0 0.1 - 1.0 02/27 STOOL Urobilinogen /2016 [place] URINE AND UA Glucose See Note 1 Negative 02/27 Result STOOL (02/27/17 5:29 PM) /2016 Comment: Patricia and Unable to determine due to interference from color of urine.
17:57 cg URINE AND UA Ketones Negative Negative 02/27 STOOL *NA* /2016 [place] (02/27/17 5:29 PM) URINE AND UA Bili See Note Negative 02/27 STO[place] (02/27/17 5:29 PM) /2016 [place] URINE AND UA Blood Large Negative 02/27 STOOL *ABN* [place] (02/27/17 5:29 PM) URINE AND UA Protein >=300 Negative 02/27 STOOL mg/dL mg/dL [place] URINE AND UA Turbidity Slight Cloudy Clear 02/27 [place] (02/27/17 5:29 PM) /2016 [place] URINE AND UA Spec Grav >=1.030 <=1.030 02/27 STOOL *ABN* /2016 [place] (02/27/17 5:29 PM) URINE AND UA pH 5.5 5.0 - 8.0 02/27 STOOL /2016 [place] URINE AND UA Color [place] Yellow 02/27 STOOL *ABN* /2016 [place] (02/27/17 5:29 PM) URINE CHEM U Preg [...] 251 K/CMM 133 - 450 01/17 Medical [facility] Hematology HGB 14.9 12.0 - 01/17 16.0 /2013 Medical [facility] Hematology HCT 43.8 36.0 - 01/17 48.0 /2014 Medical [facility] Hematology PLATELETS 251 K/CMM 133 - 450 01/17 [facility] Mineral Mixer PAP SMEAR Complete 02/17 [facility] Mineral Mixer PAP SMEAR Complete 02/17 [facility] Pathology PAP SMEAR Complete 02/17 [facility] Pathology PAP SMEAR Complete 02/17 [facility] Pathology Reports No Data Provided for This Section Diagnostic Reports Report Value Date Source Abd Pancreatic Abd Pancreatic Protocol w/wo contrast CT 10/30/2019 8:41 [facility] UPHOLSTERER 10/30/2019 [facility] [place] Protocol w/wo contrast INDICATION: - hx of pancrea titis in Nov, admitted to [facility], cont to have upper abd pain, [...] CT abdomen and pelvis with contrast. 02/27/2017 [facility] contrast only CT HISTORY: Left lower quadrant [...] Comments Source Systolic (mm Hg) 142 02/07/2020 [facility] Roxy ro Diastolic (mm Hg) 99 02/07/2020 [facility] Ne uro Heart Rate 80 02/07/2020 [facility] Neuro Respitory Rate 16 02/07/2020 [facility] Neuro Height 167.64 cm 02/07/2020 [facility] Neuro Weight 108.182 02/07/2020 [facility] Neuro BMI Calculated 38.49 02/07/2020 [facility] Neuro Systolic (mm Hg) 132 12/05/2019 [facility] Roxy ro Diastolic (mm Hg) 77 12/05/2019 [facility] Ne uro Heart Rate 85 12/05/2019 [facility] Neuro Respitory Rate 16 12/05/2019 [facility] Neuro Height 167.64 cm 12/05/2019 [facility] Neuro Weight 111.818 12/05/2019 [facility] Neuro BMI Calculated 39.79 12/05/2019 [facility] Neuro Systolic (mm Hg) 137 10/12/2019 Medical [...] [facility] Heart [facility] 91 [facility]18[facility] Resp[facility] Rate 16 05/18/2019 [facility] [...] uro Systolic (mm Hg) 133 02/28/2017 MH [place] Diastolic (mm Hg) 63 02/28/2017 [place] Respitory Rate 18 02/28/2017 [place] Temperature Oral (F) 98 F 02/28/2017 [place] Heart Rate 82 02/28/2017 MH [place] Systolic (mm Hg) 142 02/28/2017 MH [place] Diastolic (mm Hg) 70 02/28/2017 [place] Heart Rate 122 02/27/2017 MH [place] Systolic (mm Hg) 128 02/27/2017 MH [place] Diastolic (mm Hg) 85 02/27/2017 [place] Temperature Oral (F) 98.6 F 02/27/2017 [facility] Respitory Rate 18 02/27/[address] [facility] Height 167.64 cm 02/27/[address] [facility] BMI Calculated 39.3 02/27/[address] [facility] Weight 110.455 02/27/[address] [facility] Height 65.5 08/23/2014 Medical Grou [...] Type Number For Provider Date Date Visit [facility] Lab Report [id number] Samson 01/17 01/17 Srini 6980 Medical Medical [facility] Office [id number] Samson 03/29 03/29 [place] Visit 1590 Medical Medical [facility] Office [id number] Samson 05/10 05/10 Sr[place] Visit 5240 , Medical Medical [facility] Group [facility] Lab Report [id number] Samson 05/10 05/10 [place] 2930 [place]arent[place]iko, Medical Medical [facility] Group [facility] Office [id number] Samson 08/23 08/23 [place] Visit 3330 [place], Medical Medical MD Group Group [facility] Emergency [id number] Spike 02/27 02/28 [place] Wenceslao /2016 [facility] MNA Outpatient [id number] Ruy 04/03 04/04 [facility] Neurology [facility] [place] Outpatient [id number] Ryu 05/18 Active [facility] Kre [place] MNA Outpatient [id number] Ruy 05/18 05/19 [facility] Neurology Kre [facility] [place] Outpatient [id number] Ruy 06/27 Active [facility] Kre [place] MNA Outpatient [id number] Ruy 06/27 06/28 [facility] Neurology Kre Neuro [place] Outpatient [id number] Ruy 08/08 Active [facility] Kre [place] MNA Outpatient [id number] Ruy 08/08 08/09 [facility] Neurology Kre Neuro [place] Outpatient [id number] Nadim 10/12 Active [facility] Therese [place] [facility] Outpatient [id number] Nadim 10/12 10/13 [facility] There[place] /2019 Medic al [facility]log[facility] [place] [facility] Between [id number] 10/13 10/14 Gastroenter Visit /2019 Medic al ology [facility] Outpt Diag [id number] Nadim 10/30 10/31 [facility] Outpatient Services Therese /2019 [facility] [place] Outpatient [id number] Ruy 12/04 Active [facility] Kre [place] [facility] Outpatient [id number] Ruy 12/04 12/05 [facility] /2019 [facility] [place] Outpatient [id number] Ruy 01/09 Active [facility] Kre Srini MNA Outpatient [id number] Ruy 01/09 01/10 [facility] [place] /2019 [facility] [place] Outpatient [id number] Ruy 02/06 [facility]2019 [place] [facility] Outpatient [id number] Ruy 02/06 02/07 [facility] [place] /2019 [facility] [place] Outpatient [id number] Ruy 04/02 Active [facility] [place] /2019 [place] MNA Ambulatory [id number] Ruy 04/02 04/02 [facility] [place] [facility] [place] Outpatient [id number] Ruy 05/23 Active [facility] [place]rell /2019 [place] Outpatient [id number] Ruy 05/23 Active [facility] Krell /2019 [place] Procedures Procedure Code Date Perfomer Comments Source smoking/tobacco 14 01/17/2014 [facility] cessation, patient Group education and counseling mammogram [id number] 04/19/2013 [facility] vaginal Pap smear 91808 02/17/2013 Complete [facility] johnny results Group Assessment and Plan No Data Provided for This Section Plan of Care No Data Provided for This Section Social History Social History Date Source Social History TypeResponse 04/03/2019 [facility] Employment/School Status: Employed. Work/School description: [employer]. Smoking Status Current every day smoker; Type: [...] ROCAEL Morris Employment/School Status: Employed. Work/School description: [employer]. Smoking Status Current every day smoker; Lives [...]
--- OUTSIDE RECORDS SUMMARY | 2020-04-07 21:37 | XMS REPORT | Summary of Care ---
:1970 Author Organization [facility] Neurology [place] Address [address] [place] [address]- phone Encounter HQ Varun_clemencia(FIN) [id number] Date(s): 04/02/20 - 04/02/20 [facility] [place] [address] [place] [address]- [phone] Attending Physician: Ruy Mac MD Referring Physician: [...] of knee6 08/23/14 Resolved Temporomandibular 08/23/14 Resolved [id number] Urinary tract infectious disease8 03/29/14 Resolved [...]
--- OUTSIDE RECORDS SUMMARY | 2020-04-07 21:39 | XMS REPORT | Continuity of Care Document ---
:1970 Author Organization [facility] t Address [address] [place] [id number] Care Team Providers Name Role Phone Chris WATSON Primary Care Physician Valentín Mac Attending Clinician KARIN KERN Attending Clinician Unavailable Karin Kern MD Attending Clinician Jorge Saleh Attending Clinician Jorge A Billy Attending Clinician Payers Payer Name Policy Type Policy Number Effective Date Expiration Date S shaun [facility] REVIEWCDC xxxxxxxx [facility] REVIEWxxxxxxxxPO [facility] [phone] Center Problems Condition Condition Condition Status Onset Resolution Last Treating Co mments Source Name Details Category Date Date Treatment Clinician Date ABD PAIN Diagnosis Active 2017-02-27 M emoria - 17:40:00 l ABD PAIN 00:00: Juan F n 00 Active 02/27/2017 [facility] Srini TMJ Condition Active 2013-092014-08-23 Mem oria SYNDROME 2- 10:51:01 l TMJ 00:00: [place] SYNDROME 00 Active 08/23/2014 [facility] MEDIAL Condition Active 2013-092014-08-23 Mem oria MENISCUS 2-05 10:51:01 l TEAR, LEFT MEDIAL 00:00: Herm birgit MENISCUS 00 TEAR, LEFT Active 08/23/2014 [facility] POLYDIPSIA Condition Active 2014-08-23 Memoria 8- 10:51:01 l 00:00: [place] POLYDIPSIA 00 Active 05/10/2014 Condition [facility] HYPERTENSI Condition Active 2014-08-23 Memoria ON 01-17 10:51:01 l 00:00: Srini HYPERTENSI 00 ON Active 4 Condition 08/23/2014 Medical Group DYSLIPIDEM Condition Active 2014-08-23 Memoria IA 01-17 10:51:01 l 00:00: Srini DYSLIPIDEM 00 IA Active 4 Condition 08/23/2014 Medical Group ANXIETY Condition Active 2014-08-23 Me moria DEPRESSION - 10:51:01 l ANXIETY 00:00: [place] DEPRESSION 00 Active 01/17/2014 Condition [facility] OBESITY Condition Active 2014-08-23 Me moria 5- 10:51:01 l OBESITY 00:00: Srini 00 Active 01/17/2014 [facility] PHYSICAL Condition Active 2014-08-23 M emoria EXAMINATIO - 10:51:01 l N PHYSICAL 00:00: Juan F n EXAMINATIO 00 N Active 01/17/2014 Condition [facility] Dyslipidem Problem Active 2020-04-04 M emoria ia 01-17 21:52:06 l (disorder) 00:00: Juan F n Dyslipidem 00 ia (disorder) Active 01/17/2014 Problem 04/04/2020 Data migrated from [employer] on 02/18/15. Medical Group,[facility] her Neuro, [place],M H OPID [place] Hypertensi Problem Active 2020-04-04 M emoria ve 01-17 21:52:06 l disorder, 00:00: Srini systemic Hypertensi 00 arterial ve (disorder) disorder, systemic arterial (disorder) Active 01/17/2014 Problem 04/04/2020 Data migrated from [employer] on 02/18/15. Medical Group,[facility] her Neuro, [place],[facility] [place] Mixed Problem Active 2020-04-04 Memor ia anxiety - 21:52:06 l and Mixed 00:00: Srini depressive anxiety 00 disorder and (disorder) depressive disorder (disorder) Active 01/17/2014 Problem 04/04/2020 Data migrated from [employer] on 02/18/15. Medical Group,[facility] her Neuro, [place],M H OP[facility] [place] Obesity Problem Active 2020-04-04 Alexey farida (disorder) 01-17 21:52:06 l Obesity 00:00: Srini (disorder) 00 Active 01/17/2014 Problem 04/04/2020 Data migrated from [employer] on 02/18/15. Medical Group,[facility] her Neuro, [place],[facility] H [facility] [place] Diverticul Problem Resolve 2020-04-04 Memoria itis d 21:52:06 l (disorder) Juan F n Diverticul itis (disorder) Resolved Problem 04/04/2020 Medical Group,[facility] her Neuro, [place],M H OPID [place] Diabetes Problem Active 2020-04-04 Mem oria mellitus 21:52:06 l (disorder) Diabetes He rmann mellitus (disorder) Active Problem 04/04/2020 Medical Group,[facility] her Neuro, OPID [place] Headache Problem Active 2020-04-04 Mem oria (finding) 21:52:06 l Headache Juan F n (finding) Active Problem 04/04/2020 Medical Group,[facility] her Neuro, OPID [place] Hyperchole Problem Active 2020-04-04 M emoria sterolemia 21:52:06 l (disorder) Juan F n Hyperchole sterolemia (disorder) Active Problem 04/04/2020 Medical Group,[facility] her Neuro, [place],M H OPID [place] Lumbar Problem Active 2020-04-04 Memor ia radiculopa 21:52:06 l thy Lumbar Srini (disorder) radiculopa thy (disorder) Active Problem 04/04/2020 Medical Group,[facility] her Neuro, OPID [place] Depressive Problem Active 2020-04-04 M emoria disorder 21:52:06 l (disorder) Juan F n Depressive disorder (disorder) Active Problem 04/04/2020 Medical Group,[facility] her Neuro, [place],M H OPID [place] Myocardial Problem Active 2020-04-04 M emoria infarction 21:52:06 l (disorder) Juan F n Myocardial infarction (disorder) Active Problem 04/04/2020 Medical Group,[facility] her Neuro,MH OPID [place] Dysarthria Problem Active 2020-04-04 M emoria (finding) 21:52:06 l Srini Dysarthria (finding) Active Problem 04/04/2020 [facility] Paresthesi Problem Active 2020-04-04 M emoria a 21:52:06 l (finding) [place] Paresthesi a (finding) Active Problem 04/04/2020 [facility] Urinary Problem 2017-0 2017-03-02 2017-03-02 Memoria tract 6- 00:42:19 00:42:19 l infection, Urinary 05:00: Her ley site not tract 00 specified infection, site not specified 02/27/2017 03/02/2017 [place] History of Past Illness Condition Condition Condition Status Onset Resolution Last Treating Co mments Source Name Details Category Date Date Treatment Clinician Date Tear of Problem Resolve 2013-092020-04-04 2020-04-04 Memoria medial d 2-05 21:52:06 21:52:06 l meniscus Tear of 00:00: Alisia nn of knee medial 00 (disorder) meniscus of knee (disorder) Resolved 08/23/2014 Problem 04/04/2020 Data migrated from [employer] on 02/18/15. Medical Group,[facility] her Neuro, Puneet Antunez OPID [place] Temporoman Problem Resolve 2013-092020-04-04 2020-04-04 Memoria dibular d 2-05 21:52:06 21:52:06 l joint-pain 00:00: Juan F schmidt -dysfuncti Temporoman 00 on dibular syndrome joint-pain (disorder) -dysfuncti on syndrome (disorder) Resolved 08/23/2014 Problem 04/04/2020 Data migrated from [employer] on 02/18/15. Medical Group,[facility] her Neuro,Puneet Ocampo OPID [place] Excessive Problem Resolve 2013-2020-04-04 2020-04-04 Memoria thirst d 8-22 21:52:06 21:52:06 l (finding) 00:00: [place] Excessive 00 thirst (finding) Resolved 05/10/2014 Problem 04/04/2020 Data migrated from [employer] on 02/18/15. Medical Group,[facility] her Neuro,ZANA Antunez,Puneet Leroy OPID [place] Urinary Problem Resolve 2020-04-04 2020-04-04 Memoria tract d 03-29 21:52:06 21:52:06 l infectious Urinary 00:00: Her ley disease tract 00 (disorder) infectious disease (disorder) Resolved 03/29/2014 Problem 04/04/2020 Data migrated from [employer] on 04/04/15. Medical Group,[facility] her Neuro,Puneet Ocampo OPID [place] RHINITIS Condition Inactiv 2014-08-23 2014-08-23 Memoria e 03-29 10:51:01 10:51:01 l RHINITIS 00:00: Juan F n 00 Inactive 03/29/2014 Condition [facility] UTI Condition Inactiv 2014-08-23 2014-08-23 Memoria e 03-29 10:51:01 10:51:01 l UTI 00:00: Srini 00 Inactive 03/29/2014 Condition [facility] Allergies, Adverse Reactions, Alerts Allergy Allergy Status Severity Reaction(s) Onset Inactive Treating Comm ents Source Name Type Date Date Clinician Iodinate Drug Active Swelling [facility] d Allergy 5-26 [facility] Iodine Propensi Active [place] And ty to 04-06 [facility] Iodide adverse 00:00: st Containi reaction 00 ng s to Products drug No Known No Known Active Memori a Medicati Medicati l on on Srini Coppola s s Family History Family Member Diagnosis Comments Start Date Stop Date Source Natural brother Cancer [place] M ethodist Natural father Alzheimer's disease H kade [employer] Natural father Hypertension [place] [facility] [employer] Natural mother Cancer [place] Me thodist Natural mother Hypertension [place] [employer] Social History Social Habit Start Date Stop Date Quantity Comments Source Sex Assigned At [facility] Social History 2019-04-03 2019-04-03 [facility] Rad padilla 18:52:55 18:52:55 Alcohol intake 2017-12-19 2017-12-19 Current [facility] thodist 00:00:00 00:00:00 non-drinker of alcohol (finding) Smoking Status Start Date Stop Date Source Social History 2017-02-27 23:48:32 [facility] Her ley Medications Ordered Filled Start [...] Memori a 4-23 SUB-Q, l 14:24: TID-Before Srini 00 Meals, 0 Refill(s) pregabalin 2019-0 Yes 75 mg = 1 Me moria 75 MG Oral 3-18 cap, PO, l Capsule 19:33: BID, # 60 Alisia nn [Lyrica] 00 cap, 3 Refill(s), Pharmacy: [id number] repaglinide 2019-0 Yes 4 mg = 2 [...] 18:39: Refill(s) Sertraline Yes 100 mg, Alexey fardia 7-16 PO, Daily, l 18:39: 0 Refill(s) [...] Memoria 6-12 Route: l 00:30: IVP, ONCE, Srini Dosing Weight 110.455, kg, Priority: STAT, Start [...] moria BESY-BENAZE 2-05 l PRIL HCL 00:00: [place] 10-40 MG 00 CAPS DYAZIDE 2013-09 Yes one daily Memor ia 37.5-25 MG 2-05 l CAPS 00:00: [place] AMLODIPINE Yes one daily Me moria BESY-BENAZE 8-22 l PRIL HCL 00:00: [place] 5-40 MG 00 CAPS ATORVASTATI Yes one [...] Source Systolic blood 2020-02-12 19:00:00 124 mm[Hg] [facility] Diastolic blood 2020-02-12 19:00:00 68 mm[Hg] [facility] Heart rate 2020-02-12 19:00:00 98 /min [facility] Respiratory rate 2020-02-12 19:00:00 19 /min [facility] Oxygen saturation in 2020-02-12 19:00:00 96 /min [facility] Arterial blood by Medical Ce nter Pulse oximetry Body temperature 2020-02-12 15:57:[address] [facility] Body weight Measured 2020-02-12 15:57:[address] [facility] Systolic (mm Hg) 2020-02-07 14:50:00 Alexey rial [place] Diastolic (mm Hg) 2020-02-07 14:50:00 Mem orial Srini Heart Rate 2020-02-07 14:50:00 [facility] 2020-02-07 14:50:00 Connie Jordan Height 2020-02-07 14:50:00 167.64 cm [facility] Weight 2020-02-07 14:50:00 [facility] BMI Calculated 2020-02-07 14:50:00 Memori al Srini Systolic (mm Hg) 2019-12-05 19:12:00 Alexey rial Srini Diastolic (mm Hg) 2019-12-05 19:12:00 Mem orial Srini Heart Rate 2019-12-05 19:12:00 [facility] [place] Respitory Rate 2019-12-05 19:12:00 Memori al [place] Height 2019-12-05 19:12:00 167.64 cm [facility] Sr[facility] Weight 2019-12-05 19:12:00 [facility] Sr[facility] BMI Calculated 2019-12-05 19:12:00 Memori al [place] Systolic (mm Hg) 2019-10-12 17:34:00 Alexey rial Srini Diastolic (mm Hg) 2019-10-12 17:34:00 Mem orial Srini Heart Rate 2019-10-12 17:34:00 [facility] [place] Height 2019-10-12 17:34:00 167.64 cm [facility] Weight 2019-10-12 17:34:00 [facility] Sr[facility] BMI Calculated 2019-10-12 17:34:00 Memori al Srini Systolic (mm Hg) 2019-08-08 20:55:00 Alexey rial Srini Diastolic (mm Hg) 2019-08-08 20:55:00 Mem orial Srini Heart Rate 2019-08-08 20:55:00 [facility] Respitory Rate 2019-08-08 20:55:00 Memori al Srini Height 2019-08-08 20:55:00 167.64 cm [facility] [place] Weight 2019-08-08 20:55:00 [facility] Sr[facility] BMI Calculated 2019-08-08 20:55:00 Memori al Srini Systolic (mm Hg) 2019-06-27 20:49:00 Alexey rial [place] Diastolic (mm Hg) 2019-06-27 20:49:00 Mem orial Srini Heart Rate 2019-06-27 20:49:00 [facility] [place] Respitory Rate 2019-06-27 20:49:00 Memori al [place] Height 2019-06-27 20:49:00 167.64 cm [facility] Sr[facility] Weight 2019-06-27 20:49:00 [facility] Sr[facility] BMI Calculated 2019-06-27 20:49:00 Memori al Srini Systolic (mm Hg) 2019-05-18 20:00:00 Alexey rial Srini Diastolic (mm Hg) 2019-05-18 20:00:00 Mem orial Srini Heart Rate 2019-05-18 20:00:00 [facility] [place] Respitory Rate 2019-05-18 20:00:00 Memori al [place] Height 2019-05-18 20:00:00 167.64 cm [facility] [place] Weight 2019-05-18 20:00:00 [facility] [place] BMI Calculated 2019-05-18 20:00:00 Memori al [place] Weight 2019-04-03 18:11:00 [facility] Sr[facility] BMI Calculated 2019-04-03 18:11:00 Memori al [place] Height 2019-04-03 18:11:00 167.64 cm [facility] Sr[facility] Heart Rate 2019-04-03 18:11:00 [facility] [place] Respitory Rate 2019-04-03 18:11:00 Memori al [place] Systolic (mm Hg) 2019-04-03 18:11:00 Alexey rial [place] Diastolic (mm Hg) 2019-04-03 18:11:00 Mem orial Srini Systolic (mm Hg) 2017-02-28 01:20:00 Alexey rial [place] Diastolic (mm Hg) 2017-02-28 01:20:00 Mem orial Srini Respitory Rate 2017-02-28 00:36:00 Memori al [place] Temperature Oral (F) 2017-02-28 00:36:00 98 F [facility] Sr[facility] Heart Rate 2017-02-28 00:36:00 [facility] [place] Systolic (mm Hg) 2017-02-28 00:36:00 Alexey rial Srini Diastolic (mm Hg) 2017-02-28 00:36:00 Mem orial Srini Heart Rate 2017-02-27 22:13:00 [facility] [place] Systolic (mm Hg) 2017-02-27 22:13:00 Alexey rial [place] Diastolic (mm Hg) 2017-02-27 22:13:00 Mem orial [place] Temperature Oral (F) 2017-02-27 22:13:00 98.6 F [facility] [place] Respitory Rate 2017-02-27 22:13:00 Memori al Srini Height 2017-02-27 22:13:00 167.64 cm [facility] Sr[facility] BMI Calculated 2017-02-27 22:13:00 Memori al Srini Weight 2017-02-27 22:13:00 [facility] [place] Height 2014-08-23 16:51:01 [facility] Weight 2014-08-23 16:51:01 [facility] Temperature Oral (F) 2014-08-23 16:51:01 98.1 F [facility] [place] Heart Rate 2014-08-23 16:51:01 [facility] [place] Systolic (mm Hg) 2014-08-23 16:51:01 Alexey rial Srini Diastolic (mm Hg) 2014-08-23 16:51:01 Mem orial [place] Weight 2014-05-10 15:26:33 [facility] [place] Temperature Oral (F) 2014-05-10 15:26:33 98.2 F [facility] [place] Heart Rate 2014-05-10 15:26:33 [facility] [place] Systolic (mm Hg) 2014-05-10 15:26:33 Alexey rial [place] Diastolic (mm Hg) 2014-05-10 15:26:33 Mem orial Srini Height 2014-05-10 15:26:33 [facility] [place] Weight 2014-03-29 15:53:52 [facility] Sr[facility] Temperature Oral (F) 2014-03-29 15:53:52 97.8 F [facility] Sr[facility] Heart Rate 2014-03-29 15:53:52 [facility] Systolic (mm Hg) 2014-03-29 15:53:52 Alexey rial Srini Diastolic (mm Hg) 2014-03-29 15:53:52 Mem orial [place] Height 2014-01-17 14:43:32 [facility] Weight 2014-01-17 14:43:32 [facility] [place] Temperature Oral (F) 2014-01-17 14:43:32 98.0 F [facility] [place] Heart Rate 2014-01-17 14:43:32 [facility] [place] Systolic (mm Hg) 2014-01-17 14:43:32 Alexey rial Srini Diastolic (mm Hg) 2014-01-17 14:43:32 Mem orial Srini Procedures Procedure Date / Time Performed Performing Clinician Sourc e XR CHEST 2 VIEWS 2020-02-12 17:30:00 Sean Kern [facility] SARS-COV2/RT-PCR ([facility] & 2020-02-12 17:15:00 Sean Kern [facility] - REF [facility]) [facility] Center B-TYPE NATRIURETIC 2020-02-12 17:15:[address] [facility] FACTOR (BNP) [facility] BASIC METABOLIC PANEL 2020-02-12 17:15:[address] [facility] (7) [facility] TROPONIN I 2020-02-12 17:15:00 Isaac, Sean Butlerbc [facility] CBC W/PLT COUNT & AUTO 2020-02-12 17:15:00 Sean Kern [facility] ECG 12-LEAD 2020-02-12 16:18:19 Unknown, Hl7 Doctor [facility] smoking/tobacco 2014-01-17 14:43:32 Edward ley cessation, patient education and counseling mammogram 2013-04-19 15:45:41 Edward ley vaginal Pap smear 2013-02-17 14:53:37 [facility] results Plan of Care Planned Activity Planned Date Details Comments Source Future Scheduled 2020-04-19 INFLUENZA VACCINE [place] [facility] Test 00:00:00 [code = INFLUENZA VACCINE] Future Scheduled 2018 BREAST CANCER [facility] thodist Test 00:00:00 SCREENING [code = BREAST CANCER SCREENING] Future Scheduled 2018 COLONOSCOPY [facility]ING [facility] Test 00:00:00 [code = COLONOSCOPY SCREENING] Future Scheduled 2018 SHINGLES VACCINES [place] [facility] Test 00:00:00 (#1) [code = SHINGLES VACCINES (#1)] Future Scheduled 1989 Screening for [facility] thodist Test 00:00:00 malignant neoplasm of cervix (procedure) [code = 637397893] Encounters Start End Encounter Admission Attending Care Care Encounter Source Date/Time Date/Time Type Type Clinicians Facility Department ID 2020-04-02 2020-04-02 Outpatient DASHA Mac [id number] 13:15:00 13:15:00 Ruy 05 Valentín 2020-02-07 2020-02-07 Outpatient DASHA Mac [id number] 09:30:00 23:59:59 Ruy 07 Valentín 2020-01-10 2020-01-10 Outpatient DASHA Mac [id number] 09:15:00 23:59:59 Ruy 06 Valentín 2019-12-05 2019-12-05 Outpatient Estefania, MHMISCHER MHMISCHER [id number] 13:45:00 23:59:59 Ruy 04 Valentín 2019-10-30 2019-10-30 Outpatient Therese [id number] 08:26:00 23:59:00 Nadim Jorge [id number] 2019-10-13 2019-10-14 Outpatient [facility] MG [id number] 13:24:03 13:24:03 2019-10-12 2019-10-12 Outpatient Therese [facility] [id number] 11:00:00 23:59:59 Nadim Jorge 00 2019-08-08 2019-08-08 Outpatient Estefania, MISCHER MHMISCHER [id number] 14:45:00 23:59:59 Ruy 03 Valentín 2019-06-27 2019-06-27 Outpatient Estefania MISCHER MHMISCHER [id number] 15:45:00 23:59:59 Ruy 02 Valentín 2019-05-18 2019-05-18 Outpatient Estefania, MISCHER MHMISCHER [id number] 14:30:00 23:59:59 Ruy Valentín 2019-04-03 2019-04-03 Outpatient Estefania, MISCHER MHMISCHER [id number] 13:00:00 23:59:59 Ruy 00 Valentín 2017-02-27 2017-02-27 Outpatient Wenceslao [facility] [id number] 17:07:00 20:28:00 Spike Jules Results Test Description Test Time Test Comments Results Result Sour e Comments ECG 12 lead 2020-01-19 Interface, External Ris [facility] - 02/13/2020 6:29 Ashley es - 06:29:35 AM CDTVentricular Rate Me dical 94 BPMAtrial Rate 94 Cent er BPMP-R Interval 124 msQRS Duration 72 msQ-T Interval 378 msQTC Calculation(Bazett) 472 msP Holly 5 degreesR Holly -1 degreesT Holly 23 degreesNormal sinus rhythmNormal ECGNo previous ECGs availableConfirmed by MD CB, AGUILA Colin ([id number]) on 02/13/2020 6:29:32 AM SARS-CoV2/RT-PCR (Symptomatic ONLY) 2020-02-12 19:30:00 Test Item Value Reference Range Interpretation Comme nts SARS-COV2/RT-PCR (test code = Not Detected Not Detected, Negative 28317-6) SARS-COV-[address] [facility] (test code = 73347-0) MARGARITA (test code = MARGARITA) Negative results [...] of the Act. Fact Sheet for Healthcare Providers:https://www.[employer]/Documents/Xpert%20Xpress %20SARS%20CoV-2/Fact%20Sheets /3023802%99WNGB-YGA-1%20HEAL THCARE%20PROVIDERS%20FACT%20S HEET.pdf Fact Sheet for Healthcare Patients:https://www.VirtualU/Documents/Xpert%20Xpress% 20SARS%20CoV-2/Fact%20Sheets/ 3023801%14DTGJ-STL-6%20PATIE NT%20FACT%20SHEET.pdf Performing Laboratory:[place] [address] [place] [address] [facility])2020-02-12 19:30:00 Test Item Value Reference Range Interpretation Comments SARS-COV2/RT-PCR (test Not Detected Not Detected, Negative code = 4757715) SARS-COV-[address] [facility] (test code = 3028848) Negative results do not preclude SARS-CoV-2 infection [...] of the Act.Fact Sheet for Healthcare Pro viders:https://www.[employer]/Documents/Xpert%20Xpress%20SARS%20CoV-2/Fact%20Sh eets/302-6282%83NRKG-WSS-8%20HEALTHCARE%20PROVIDERS%20FACT%20SHEET.pdfFact Sheet for Healthcare Patients:https://www.[employer] id.[employer]/Documents/Xpert%20Xpress%20SARS%20CoV-2/Fact%20Sheets/3023801%20SARS-COV -2%20PATIENT%20FACT%20SHEET.pdfPerforming Laboratory:[facility], [place] [address]Ioqtxlbe [id number] 18:17:00 Test Item Value Reference Range Interpretation Comments Troponin I (test code = <0.01 0-0.03 61072-7) MARGARITA (test code = MARGARITA) Troponin I [...] E Lab Interpretation (test Normal code = 18950-2) [facility] [id number] 18:17:00 Test Item Value Reference Range Interpretation [...] failure, acidosis, acute neurological disease, and persistent tachyarrhythmia.Sustainability Project Manager [facility] [place] EB-type Natriuretic Factor (BNP)2020-02-12 18:10:00 Test Item Value Reference Range Interpretation Comments BNP (test code = 93343-2) 18 pg/mL 0-100 MARGARITA (test code = MARGARITA) Sustainability Project Manager ID [place] E Lab Interpretation (test Normal code = 37026-5) [facility] NATRIURETIC FACTOR (BNP)2020-02-12 18:10:00 Test Item Value Reference Range Interpretation Comments B-TYPE NATRIURETIC PEPTIDE (BEAKER) 18 pg/mL 0-100 (test code = 700) Sustainability Project Manager [facility] [place] EBasic Metabolic [id number] 18:07:00 Test Item Value Reference Range Interpretation Comments Sodium (test code = 139 meq/L 220-870 1640-2) Potassium (test code 3.8 meq/L 3.5-5.1 = 2823-3) Chloride (test code = 106 meq/L 98-107 2075-0) CO2 (test code = 25 meq/L 22-29 2028-9) BUN (test code = 10 mg/dL 7-21 3094-0) Creatinine (test code 0.70 mg/dL 0.57-1.25 = 2160-0) Glucose (test code = 184 mg/dL 70-105 H 2345-7) Calcium (test code = 8.8 mg/dL 8.4-10.2 67292-4) EGFR (test code = 107 mL/min/1.73 sq m INSUFF ICIENT 61705-3) CLINICAL DATA T O CALCULATE ESTIMATED GFR. MARGARITA (test code = MARGARITA) Sustainability Project Manager KRISTINA [place] Lab Interpretation Abnormal (test code = 59830-1) [facility] METABOLIC [id number] 18:07:00 Test Item Value Reference Range Interpretation [...] DATA TO CALCU LATE m ESTIMATED GFR. Sustainability Project Manager KRISTINA CHRIS ERAD, CHEST, 2 [id number] 17:35:00Reason for exam:->WHEEZINGFINAL REPORT TECHNIQUE: Frontal and [...] MDReport Verified Date/Time: 02/12/2020 17:35:52 Reading Location: [facility] C0[facility] Transitional Reading Room XR chest 2 [id number] 17:35:00Interface, External Ris In - 02/12/2020 5:38 [...] infectious/inflammatory processes versus pulmonary edema Signed: Darshana Grigsbyeport Verified Date/Time: 02/12/2020 17:35:52 Reading Location: [facility] C0[facility] Transitional Reading Room Electronicallysigned by: DARSHANA GRIGSBY MD on 02/12/2020 05:35 [facility] CBC with platelet count + automated [id number] 17:34:00 Test Item Value Reference Range Interpretation [...] 450 K/CU MM MPV (test code = 55817-9) 10.8 fL 9.4-12.3 nRBC (test code = [...] 2801) Lab Interpretation (test code = Abnormal 23789-3) [facility] W/PLT COUNT & AUTO [id number] 17:34:00 Test Item Value Reference Range Interpretation [...] PERCENT (BEAKER) (test code = 2801) CHEM [id number] 22:38:0095[facility] [id number] 22:38:0013 [facility]ann[facility] [id number] 22:38:0010[facility]annCHEM PANEL 2017-02-27 22:38:000.74[facility]annCHEM [id number] 22:38:0028[facility]annCHEM [id number] 22:38:003.6[facility]annCHE[facility] [id number] 22:38:0081[facility]annCHEM [id number] 22:38:32432Itzgxyto HermannCHEM [id number] 22:38:000.3[facility]annCHE[facility] [id number] 22:38:41248 [facility] [id number] 22:38:007.9[facility]annCHEM PANEL 2017-02-27 22:38:008.9[facility]annCHEM [id number] 22:38:19907Hwyjwpib HermannCHEM [id number] 22:38:003.9[facility] HermannCHEM [id number] 22:38:0029[facility]annCHEM [id number] 22:38:000.8[facility]annCHEM [id number] 22:38:0010.9[facility]annCHEM [id number] 22:38:004.3 [facility]annCHE[facility] [id number] 22:38:0014[facility] HermannCHEM PANEL 2017-02-27 22:38:54531Dtwetnpt [id number] 22:38:001[facility] [id number] 22:38:0064.7[facility]orial [id number] 22:38:002.9[facility]orial [id number] 22:38:000.1[facility]ini [id number] 22:38:000.4[facility] UvuxrwkMJEBMSVNCR7696-42-68 22:38:000.9 [facility] DyonwnyWEXLXIXJPT6453-77-66 22:38:007.8[facility] HermannHEMATOLOGY 2017-02-27 22:38:003.2[facility] GbeyurfMMUHGMONRS6667-29-71 22:38:007.4[facility] XtrabykMOSGPZJZMF1735-78-74 22:38:0024.1[facility] ZizmlgdZHRTQYNDSR0020-89-90 22:38:000.6[facility] CimczaiMXPHJMSBCW4973-94-90 22:38:0040.4[facility] Srini CJOKEHQAFG9788-20-64 22:38:0013.9[facility] RmwjcofHOFCVLOIUE9772-62-05 22:38:00 4.61[facility] JziyfzlFNHFGVIAAT2977-69-78 22:38:0012.0[facility] HermannHEMATOLOGY 2017-02-27 22:38:008.1[facility] YvnrdfxEVRTBKZJDH9012-17-11 22:38:0013.9[facility] UgftyhcMMGWHDFHPR0249-03-72 22:38:39401Omvqzexa DenmsftLDRUBBTENL9213-77-32 22:38:0034.5[facility] YbuacvlCSFKJURKTD0348-19-97 22:38:00 Test Item Value Reference Range Interpretation Comments MCH (test code = MCH) 30.2 pg 27.0-31.0 [facility] RnizkxdZNHUAKCCFJ4938-57-71 22:38:0087.5[facility]annURINE AND STOOL 2017-02-27 22:29:00See Note (02/27/17 5:29 PM)[facility] 2017-02-27 22:29:00Moderate *ABN*(02/27/17 5:29 PM)[facility] XHCHX8777-27-85 22:29:004.0[facility] GKDCM8978-60-51 22:29:00See Note 1(02/27/17 5:29 PM)[facility] AHMYD2901-59-75 22:29:00 Negative *NA*(02/27/17 5:29 PM)[facility] QADKY5629-55-47 22:29:00 See Note (02/27/17 5:29 PM)[facility] YNWYI3585-12-72 22:29:00 Large *ABN*(02/27/17 5:29 PM)[facility] TSJBK4535-80-36 22:29:00 Slight Cloudy (02/27/17 5:29 PM)[facility] ETBZJ6986-95-48 22:29:00>=1.030 *ABN*(02/27/17 5:29 PM)[facility] STOOL 2017-02-27 22:29:00 Test Item Value Reference Range Interpretation Comments UA pH (test code = UA pH) 5.5 1 5.0-8.0 [facility] [id number] 22:29:00Orange *ABN*(02/27/17 5:29 PM) [facility] AEZT4135-76-98 22:29:00Negative (02/27/17 5:29 PM)[facility] QcxmobwQbhhzqtrx7050-81-36 16:20:005.5[facility] DonuzltKsvdnstfv1734-65-98 16:20:87127Nobehjwd YkmpkqlYhfomuwig3513-97-66 16:20:75618Ulqlings Srini Nffcnbuyh0852-36-47 16:20:0036[facility] YanithkOpkxijagm4510-80-36 16:20:0090 [facility] InxtdfaOwgcrayuq1368-47-06 15:30:31365Mwvonsom HermannChemistry 2014-01-17 15:30:32014Xnqnvbeh WsodshoXpawjqrsa1759-76-08 15:30:0031[facility] LpywiogWtqdetmkp6921-22-47 15:30:00See Note mg/dLMemorial HermannChemistry 2014-01-17 15:30:98014 MEQ/LMemorial IdukvimFwogebgbq0689-90-21 15:30:004.6 MEQ/LMemorial MhipkjhSdeyqrbom4140-88-63 15:30:000.7[facility] HermannChemistry 2014-01-17 15:30:0015[facility] XdlrqueAintsfxop7115-38-95 15:30:00 Test Item Value Reference Range Interpretation Comments BUN/CREAT (test code = BUN/CREAT) 21 1 6-25 [facility] FskgawdBzcrrsieh5895-38-54 15:30:004.3[facility] HermannChemistry 2014-01-17 15:30:009.0[facility] FgwabkiDplbtstvj1683-02-11 15:30:0030[facility] TzrijmlCfmucdaaq1693-88-35 15:30:0012[facility] RloquscQfhpawkpg8297-13-96 15:30:0073[facility] JzpflsoNycvbdpcl2840-58-68 15:30:001.680[facility] Srini Hgpxbgxgj9946-63-22 15:30:83071Huinqnub KfqlbakPtzjwrrne9803-75-90 15:30:71033 [facility] XvaujhgIowrwotvn1225-46-72 15:30:0031[facility] HermannChemistry 2014-01-17 15:30:00See Note mg/dLMemorial NqpvnuqKsmunurvh9861-52-24 15:30:23299 MEQ/LMemorial BakemquSzmcfexeu1821-25-30 15:30:004.6 MEQ/LMemorial Srini Puhvifvpb8676-12-08 15:30:000.7[facility] XttiylmTwhgvbgdo8449-65-60 15:30:0015 [facility] RllnrnqHlvtruhpg1184-50-66 15:30:00 Test Item Value Reference Range Interpretation Comments BUN/CREAT (test code = BUN/CREAT) 21 1 6-25 [facility] JhphwrsBdeovdmke4572-85-47 15:30:004.3[facility] HermannChemistry 2014-01-17 15:30:009.0[facility] XuwbhajMpwrmbyba5041-07-36 15:30:0030[facility] UqloqnhZwwahbktm8798-38-64 15:30:0012[facility] BuvbktwUeixgwiwd7290-95-83 15:30:0073[facility] MawmctoTiplnnxoo2060-16-83 15:30:001.680[facility] Srini Bnfzqvjufo9953-13-32 15:30:0014.9[facility] HfjwjsgNtoxdgnupz8480-67-92 15:30:00 43.8[facility] DxeapgkAmplkldovt4092-52-26 15:30:45761 K/CMMMemorial [place] Oggpbmmvjp9000-16-07 15:30:0014.9[facility] RgaztjzSkmozvqnzh2501-18-06 15:30:00 43.8[facility] EqjuwuoWbdgkwqxqe7696-53-12 15:30:85716 K/CMMMemorial HermannOb/Sales Commissions Analyst 2013-02-17 14:53:37CompleteMemorial HermannOb/Xmp0367-42-59 14:53:37Complete [facility] XanwofrCepvqsnhw5732-18-53 14:53:37CompleteMemorial HermannPathology 2013-02-17 14:53:37CompleteMemorial Srini
[2020-04-07] MEDS ORDERED: MORPHINE 4 MG/ML SYR ONE (22:22)
[2020-04-07] MEDS ORDERED: ONDANSETRON 4 MG/2 ML VIAL ONE (22:22)
[2020-04-07 22:33] LABS: Absolute Lymphocytes (CBC) 1.4 K/uL (0.7-4.9); Basophils % 0.8 % (0-1.3); Hematocrit 36.5 % (36.0-45.0); Lymphocytes % 30.3 % (15.3-44.8); MPV 9.2 fL (7.6-11.3); RBC Red Blood Cell Count 4.16 M/uL (3.86-4.86)
[2020-04-07 22:34] LABS: Protime INR 1.06
[2020-04-07 22:49] LABS: ALT/SGPT 103 U/L (12-78); AST/SGOT 33 U/L (15-37); Albumin 3.7 g/dL (3.4-5.0); Alkaline Phosphatase 72 U/L (45-117); BUN Blood Urea Nitrogen 15 mg/dL (7-18); Bicarbonate 26 mmol/L (21-32); Bilirubin Direct < 0.1 mg/dL (0-0.2); Bilirubin Total 0.3 mg/dL (0.2-1.0); Glucose Level 276 mg/dL (74-106); Magnesium 1.9 mg/dL (1.8-2.4); NT PRO-BNP 11 pg/mL (<125); Potassium 3.5 mmol/L (3.5-5.1); Protein, Total 7.3 g/dL (6.4-8.2); Sodium Level 141 mmol/L (136-145); Troponin (Emerg Dept Use Only) < 0.02 ng/mL (0.0-0.045)
[2020-04-08] MEDS ORDERED: NA CHLORIDE 0.9% 1,000 ML ONE (00:22)
[2020-04-08] MEDS ORDERED: ACETAMINOPHEN 500 MG TAB ONE (00:22)
--- NOTE | 2020-04-08 00:35 | ER ---
Nurse's Notes [facility] Name: Kelley Ordaz Age: 49 yrs Sex: Female : 1970 Arrival Date: 04/07/2020 Time: 21:35 Bed 14 Private MD: Diagnosis: Chest Pain Presentation: 04/07 21:47 Chief complaint: Patient states: Chest pain since noon today, states when the pain lp1 hits, her blood pressure rises; chest pain radiating to left arm, tingling; complaint of headache/pressure which was similar with previous RI. Coronavirus screen: Patient denies a cough. Patient denies shortness of breath or difficulty breathing. Patient denies measured and/or subjective temperature greater than 100.4F prior to today's visit. Patient denies travel on a cruise ship or to a country the [facility] currently lists as an affected area. Patient denies contact with known and/or suspected case of COVID-19. Proceed with normal triage. Ebola Screen: No symptoms or risks identified at this time. Initial Sepsis Screen: Does the patient meet any 2 criteria? No. Patient's initial sepsis screen is negative. Does the patient have a suspected source of infection? No. Patient's initial sepsis screen is negative. Risk Assessment: Do you want to hurt yourself or someone else? Patient reports no desire to harm self or others. Onset of symptoms was April 07, 2020 at 12:00. 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 lp1 Historical: - Allergies: 21:52 Iodine (Respiratory distress); lp1 21:52 Ciprofloxacin; lp1 - Home Meds: 21:52 Abilify 15 mg oral tab 0.5 tab once daily [Active]; lp1 21:55 amlodipine-olmesartan oral 1-20 oral 1 tab once daily [Active]; aspirin 81 mg Oral chew lp1 1 tab once daily [Active]; Plavix 75 mg Oral tab 1 tab once daily [Active]; Zetia 10 mg Oral tab 1 tab once daily [Active]; Lipitor 80 mg Oral tab once daily [Active]; metoprolol tartrate 25 mg Oral tab 2 times per day [Active]; Repatha SureClick subcutaneous every 2 wks [Active]; Novolog PenFill 100 unit/mL subcutaneous crtg 35 unit three times a day [Active]; Triseba SQ 60 unit daily [Active]; Vascepa 1 gram Oral cap three times a day [Active]; - PMHx: 21:52 CAD; Depression; Diabetes - IDDM; Diverticulitis; High Cholesterol; Hypertension; lp1 Myocardial infarction; pancreatic cancer; Pancreatitis; - PSHx: 21:52 Heart stents; Carpal Tunnel Repair; Cataracts; Tubal ligation; lp1 - Immunization history:: Adult Immunizations up to date. - Social history:: Smoking status: Patient reports the use of cigarette tobacco products, smokes one-half pack cigarettes per day. Screenin:21 Abuse screen: Denies threats or abuse. Nutritional screening: No deficits noted. jd3 Tuberculosis screening: No symptoms or risk factors identified. Fall Risk IV access (20 points). Ambulatory Aid- None/Bed Rest/Nurse Assist (0 pts). Gait- Normal/Bed Rest/Wheelchair (0 pts) Mental Status- Oriented to own ability (0 pts). Total Nguyen Fall Scale indicates No Risk (0-24 pts). Assessment: 22:19 General: Appears in no apparent distress. comfortable, Behavior is calm, cooperative, jd3 appropriate for age. Pain: Complains of pain in head and chest Pain does not radiate. Pain began gradually. Neuro: Level of Consciousness is awake, alert, obeys commands, Oriented to person, place, time, situation. Cardiovascular: Reports chest pain, Capillary refill < 3 seconds Patient's skin is warm and dry. Rhythm is regular. Respiratory: Airway is patent Respiratory effort is even, unlabored, Respiratory pattern is regular, symmetrical, Denies cough, shortness of breath. GI: No signs and/or symptoms were reported involving the gastrointestinal system. : No signs and/or symptoms were reported regarding the genitourinary system. EENT: No signs and/or symptoms were reported regarding the EENT system. Derm: Skin is intact, Skin is dry, Skin is normal, Skin temperature is warm. Musculoskeletal: Circulation, motion, and sensation intact. Range of motion: intact in all extremities. 22:46 Reassessment: Patient appears in no apparent distress at this time. Patient and/or jd3 family updated on plan of care and expected duration. Pain level reassessed. Patient is alert, oriented x 3, equal unlabored respirations, skin warm/dry/pink. 23:45 Reassessment: Patient appears in no apparent distress at this time. No changes from jd3 previously documented assessment. Patient and/or family updated on plan of care and expected duration. Pain level reassessed. Patient is alert, oriented x 3, equal unlabored respirations, skin warm/dry/pink. 04/08 00:28 Reassessment: Patient appears in no apparent distress at this time. Patient and/or jd3 family updated on plan of care and expected duration. Pain level reassessed. Patient is alert, oriented x 3, equal unlabored respirations, skin warm/dry/pink. reporting continued headache, provider notified, awaiting disposition. 01:37 Reassessment: Patient appears in no apparent distress at this time. No changes from jd3 previously documented assessment. Patient and/or family updated on plan of care and expected duration. Pain level reassessed. Patient is alert, oriented x 3, equal unlabored respirations, skin warm/dry/pink. awaiting admission. Vital Signs: 04/07 21:47 BP 153 / 77; Pulse 100; Resp 18; Pulse Ox 98% on R/A; Weight 99.79 kg; Height 5 ft. 6 lp1 in. (167.64 cm); Pain 5/10; 22:44 Temp 98.3(O); mt2 22:46 BP 112 / 54; Pulse 84; Resp 16 S; Pulse Ox 97% on R/A; jd3 23:44 BP 109 / 53; Pulse 85; Resp 17 S; Pulse Ox 97% on R/A; jd3 04/08 00:28 BP 126 / 65; Pulse 81; Resp 16 S; Pulse Ox 98% on R/A; jd3 01:38 BP 114 / 57; Pulse 78; Resp 16 S; Pulse Ox 96% on R/A; jd3 04/07 21:47 Body Mass Index 35.51 (99.79 kg, 167.64 cm) lp1 ED Course: 04/07 21:35 Patient arrived in ED. cf2 21:37 Ethan Jimenez MD is Attending Physician. mh7 21:49 Triage completed. lp1 21:49 Arm band placed on. lp1 21:53 EKG done, by ED staff, reviewed by Ethan Jimenez MD. ds4 21:55 Patient maintains SpO2 saturation greater than 95% on room air. lp1 21:57 Champ Stiles, RN is Primary Nurse. jd3 22:08 Inserted saline lock: 20 gauge in right antecubital area, using aseptic technique. jd3 Blood collected. 22:14 XRAY Chest (1 view) In Process Unspecified. EDMS 22:21 Patient has correct armband on for positive identification. Bed in low position. Call jd3 light in reach. Side rails up X 1. air sampling and monitoring on. Pulse ox on. NIBP on. 22:42 CT Head Brain wo Cont In Process Unspecified. EDMS 04/08 00:34 Balwinder Mercado is Hospitalizing Provider. 7 01:45 No provider procedures requiring assistance completed. Patient admitted, IV remains in jd3 place. Administered Medications: 04/07 22:18 Drug: morphine 4 mg Route: IVP; Site: right antecubital; jd3 22:50 Follow up: Response: No adverse reaction; RASS: Alert and Calm (0) jd3 22:18 Drug: Zofran (Ondansetron) 4 mg Route: IVP; Site: right antecubital; jd3 22:50 Follow up: Response: No adverse reaction jd3 04/08 00:26 Drug: NS 0.9% 1000 ml Route: IV; Rate: 1000 ml; Site: right antecubital; jd3 01:25 Follow up: Response: No adverse reaction; IV Status: Completed infusion; IV Intake: jd3 1000ml 00:27 Drug: Tylenol 1000 mg Route: PO; jd3 01:25 Follow up: Response: No adverse reaction jd3 00:45 Drug: Aspirin Chewable Tablet 162 mg Route: PO; jd3 01:45 Follow up: Response: No adverse reaction jd3 Intake: 01:25 IV: 1000ml; Total: 1000ml. jd3 Outcome: 00:34 Decision to Hospitalize by Provider. mh7 01:45 Condition: stable jd3 01:45 Instructed on the need for admit, Demonstrated understanding of instructions. 01:45 Admitted to Med/surg accompanied by tech, via stretcher, room 206, with chart, Report jd3 called to Azeem ALEX 01:58 Patient left the ED. jd3 Signatures: Dispatcher [facility] Dinah oJhnson RN RN lp1 Robert Mai ds4 Champ Stiles RN RN jd3 Radha Bowden cf2 Ethan Jimenez MD MD mh7 Nisreen Tee RN RN mt2 Corrections: (The following items were deleted from the chart) 04/07 21:55 21:52 Home Meds: amlodipine-olmesartan oral oral; lp1 lp1
--- NOTE | 2020-04-08 00:35 | EDPHYS ---
Physician Documentation [facility] Name: Kelley Ordaz Age: 49 yrs Sex: Female : 1970 Arrival Date: 04/07/2020 Time: 21:35 Bed 14 Private MD: ED Physician Ethan Jimenez HPI: 04/07 21:58 This 49 yrs old Female presents to ER via Wheelchair with complaints of Chest mh7 Pain, High Blood Pressure, Headache. 21:58 The patient or guardian reports chest pain that is located primarily in the substernal mh7 area. Onset: today. The pain does not radiate. Associated signs and symptoms: Pertinent positives: headache, Pertinent negatives: abdominal pain, cough, diaphoresis, dizziness, lower extremity pain, lower extremity swelling, lightheadedness, nausea, near syncope, palpitations, recent travel, shortness of breath, syncope, vomiting. The chest pain is described as sharp, tightness. Duration: The patient or guardian reports multiple episodes, that are intermittent, that wax and wane, with no pattern. Modifying factors: The symptoms are alleviated by nothing. the symptoms are aggravated by nothing. Severity of pain: At its worst the pain was moderate today, in the emergency department the pain has improved moderately. 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 lp1 Historical: - Allergies: 21:52 Iodine (Respiratory distress); lp1 21:52 Ciprofloxacin; lp1 - Home Meds: 21:52 Abilify 15 mg oral tab 0.5 tab once daily [Active]; lp1 21:55 amlodipine-olmesartan oral 1-20 oral 1 tab once daily [Active]; aspirin 81 mg Oral chew lp1 1 tab once daily [Active]; Plavix 75 mg Oral tab 1 tab once daily [Active]; Zetia 10 mg Oral tab 1 tab once daily [Active]; Lipitor 80 mg Oral tab once daily [Active]; metoprolol tartrate 25 mg Oral tab 2 times per day [Active]; Repatha SureClick subcutaneous every 2 wks [Active]; Novolog PenFill 100 unit/mL subcutaneous crtg 35 unit three times a day [Active]; Triseba SQ 60 unit daily [Active]; Vascepa 1 gram Oral cap three times a day [Active]; - PMHx: 21:52 CAD; Depression; Diabetes - IDDM; Diverticulitis; High Cholesterol; Hypertension; lp1 Myocardial infarction; pancreatic cancer; Pancreatitis; - PSHx: 21:52 Heart stents; Carpal Tunnel Repair; Cataracts; Tubal ligation; lp1 - Immunization history:: Adult Immunizations up to date. - Social history:: Smoking status: Patient reports the use of cigarette tobacco products, smokes one-half pack cigarettes per day. ROS: 21:58 Constitutional: Negative for fever, chills, and weight loss, Eyes: Negative for injury, mh7 pain, redness, and discharge, ENT: Negative for injury, pain, and discharge, Neck: Negative for injury, pain, and swelling, Respiratory: Negative for shortness of breath, cough, wheezing, and pleuritic chest pain, Abdomen/GI: Negative for abdominal pain, nausea, vomiting, diarrhea, and constipation, Back: Negative for injury and pain, : Negative for injury, bleeding, discharge, and swelling, MS/Extremity: Negative for injury and deformity, Skin: Negative for injury, rash, and discoloration, Psych: Negative for depression, anxiety, suicide ideation, homicidal ideation, and hallucinations, Allergy/Immunology: Negative for hives, rash, and allergies, Endocrine: Negative for neck swelling, polydipsia, polyuria, polyphagia, and marked weight changes, Hematologic/Lymphatic: Negative for swollen nodes, abnormal bleeding, and unusual bruising. Exam: 21:58 Constitutional: This is a well developed, well nourished patient who is awake, alert, mh7 and in no acute distress. Head/Face: Normocephalic, atraumatic. Eyes: Pupils equal round and reactive to light, extra-ocular motions intact. Lids and lashes normal. Conjunctiva and sclera are non-icteric and not injected. Cornea within normal limits. Periorbital areas with no swelling, redness, or edema. ENT: Nares patent. No nasal discharge, no septal abnormalities noted. Tympanic membranes are normal and external auditory canals are clear. Oropharynx with no redness, swelling, or masses, exudates, or evidence of obstruction, uvula midline. Mucous membranes moist. Neck: Trachea midline, no thyromegaly or masses palpated, and no cervical lymphadenopathy. Supple, full range of motion without nuchal rigidity, or vertebral point tenderness. No Meningismus. Chest/axilla: Normal chest wall appearance and motion. Nontender with no deformity. No lesions are appreciated. Cardiovascular: Regular rate and rhythm with a normal S1 and S2. No gallops, murmurs, or rubs. Normal PMI, no JVD. No pulse deficits. Respiratory: Lungs have equal breath sounds bilaterally, clear to auscultation and percussion. No rales, rhonchi or wheezes noted. No increased work of breathing, no retractions or nasal flaring. Abdomen/GI: Soft, non-tender, with normal bowel sounds. No distension or tympany. No guarding or rebound. No evidence of tenderness throughout. Back: No spinal tenderness. No costovertebral tenderness. Full range of motion. Skin: Warm, dry with normal turgor. Normal color with no rashes, no lesions, and no evidence of cellulitis. MS/ Extremity: Pulses equal, no cyanosis. Neurovascular intact. Full, normal range of motion. Neuro: Awake and alert, GCS 15, oriented to person, place, time, and situation. Cranial nerves II-XII grossly intact. Motor strength 5/5 in all extremities. Sensory grossly intact. Cerebellar exam normal. Normal gait. Psych: Awake, alert, with orientation to person, place and time. Behavior, mood, and affect are within normal limits. 22:26 ECG was reviewed by the Attending Physician. [facility] Vital Signs: 21:47 BP 153 / 77; Pulse 100; Resp 18; Pulse Ox 98% on R/A; Weight 99.79 kg; Height 5 ft. 6 lp1 in. (167.64 cm); Pain 5/10; 22:44 Temp 98.3(O); mt2 22:46 BP 112 / 54; Pulse 84; Resp 16 S; Pulse Ox 97% on R/A; jd3 23:44 BP 109 / 53; Pulse 85; Resp 17 S; Pulse Ox 97% on R/A; jd3 04/08 00:28 BP 126 / 65; Pulse 81; Resp 16 S; Pulse Ox 98% on R/A; jd3 01:38 BP 114 / 57; Pulse 78; Resp 16 S; Pulse Ox 96% on R/A; jd3 04/07 21:47 Body Mass Index 35.51 (99.79 kg, 167.64 cm) lp1 MDM: 04/07 21:55 Patient medically screened. [facility] 04/08 00:32 Differential diagnosis: acute myocardial infarction, acute pericarditis, anxiety, [facility] coronary artery disease chest wall pain, congestive heart failure costochondritis, pneumonia, pneumothorax. HEART Score: History: Moderately Suspicious (1), ECG: Normal (0), Age: > 45 and < 65 years (1), Risk Factors: > or = 3 Risk factors for atherosclerotic disease (2), [Hypercholesterolemia] [Hypertension] [DM] Troponin: < or = 1 x Normal Limit (0), Total Score = 4. Data reviewed: vital signs, nurses notes, old medical records, lab test result(s), cardiac enzymes, CBC, electrolytes, EKG, radiologic studies, CT scan, plain films. Data interpreted: Pulse oximetry: on room air is 98 %. Interpretation: normal. Counseling: I had a detailed discussion with the patient and/or guardian regarding: the historical points, exam findings, and any diagnostic results supporting the discharge/admit diagnosis, the presence of at least one elevated blood pressure reading (>120/80) during this emergency department visit, lab results, radiology results, the need for further work-up and treatment in the hospital. 04/07 21:55 Order name: Basic Metabolic Panel [facility] 04/07 21:55 Order name: CBC with Diff; Complete Time: 22:42 [facility] 04/07 21:55 Order name: LFT's; Complete Time: 22:55 [facility] 04/07 21:55 Order name: Magnesium; Complete Time: 22:55 [facility] 04/07 21:55 Order name: NT PRO-BNP; Complete Time: 22:55 [facility] 04/07 21:55 Order name: PT-INR; Complete Time: 22:42 [facility] 04/07 21:55 Order name: Troponin (emerg Dept Use Only); Complete Time: 22:55 [facility] 04/07 21:55 Order name: XRAY Chest (1 view) [facility] 04/07 21:56 Order name: CT Head Brain wo Cont [facility] 04/07 21:56 Order name: Basic Metabolic Panel; Complete Time: 22:55 EDMS 04/08 01:09 Order name: Urine Dipstick--Ancillary (enter results) tt3 04/07 21:55 Order name: EKG; Complete Time: 21:56 [facility] 04/07 21:55 Order name: Cardiac monitoring; Complete Time: :57 7 04/07 21:55 Order name: EKG - Nurse/Tech; Complete Time: :57 [facility] 04/07 21:55 Order name: IV Saline Lock; Complete Time: 22:18 7 04/07 21:55 Order name: Labs collected and sent; Complete Time: 22:18 7 04/07 21:55 Order name: O2 Per Protocol; Complete Time: :57 7 04/07 21:55 Order name: O2 Sat Monitoring; Complete Time: :57 7 04/07 21:57 Order name: Urine Dipstick-Ancillary (obtain specimen); Complete Time: 00:57 mh7 EC/20 22:26 Rate is 104 beats/min. Rhythm is regular, Sinus tachycardia. QRS [place] is Normal. [place] mh7 interval is normal. QRS interval is normal. QT interval is normal. No Q waves. T waves are Normal. No ST changes noted. Clinical impression: Sinus tachycardia. Administered Medications: 22:18 Drug: morphine 4 mg Route: IVP; Site: right antecubital; jd3 22:50 Follow up: Response: No adverse reaction; RASS: Alert and Calm (0) [facility] 22:18 Drug: Zofran (Ondansetron) 4 mg Route: IVP; Site: right antecubital; jd3 22:50 Follow up: Response: No adverse reaction [facility] 04/08 00:26 Drug: NS 0.9% 1000 ml Route: IV; Rate: 1000 ml; Site: right antecubital; jd3 01:25 Follow up: Response: No adverse reaction; IV Status: Completed infusion; IV Intake: jd3 1000ml 00:27 Drug: Tylenol 1000 mg Route: PO; jd3 01:25 Follow up: Response: No adverse reaction jd3 00:45 Drug: Aspirin Chewable Tablet 162 mg Route: PO; jd3 01:45 Follow up: Response: No adverse reaction jd3 Disposition: 04/08/20 00:34 Hospitalization ordered by Balwinder Mercado for Observation. Preliminary diagnosis is Chest Pain. - Bed requested for Telemetry/MedSurg (observation). - Status is Observation. jd3 - Condition is Stable. - Problem is new. - Symptoms have improved. Signatures: Dispatcher Briteseed EDNY Uzma Mejia RN RN mw Dinah Celeste RN RN lp1 Champ Stiles RN RN jd3 Ethan Jimenez MD MD 7 Corrections: (The following items were deleted from the chart) 04/07 21:55 21:52 Home Meds: amlodipine-olmesartan oral oral; lp1 lp1 04/08 01:15 00:34 Hospitalization Ordered by Balwinder Mercado for Observation. Preliminary diagnosis mw is Chest Pain. Bed requested for Telemetry/MedSurg (observation). Status is Observation. Condition is Stable. Problem is new. Symptoms have improved. mh7 01:58 01:15 04/08/2020 00:34 Hospitalization Ordered by Balwinder Mercado for Observation. jd3 Preliminary diagnosis is Chest Pain. Bed requested for Telemetry/MedSurg (observation). Status is Observation. Condition is Stable. Problem is new. Symptoms have improved. mw
[2020-04-08] MEDS ORDERED: ASPIRIN 81 MG CHEWABLE TABLET ONE (00:51)
--- NOTE | 2020-04-08 01:16 | P.HP ---
Certification for Inpatient Patient admitted to: Observation With expected LOS: <2 Midnights Practitioner: I am a practitioner with admitting privileges, knowledge of patient current condition, hospital course, and medical plan of care. Services: Services provided to patient in accordance with Admission requirements found in Title 42 Section 412.3 of the Code of Federal Regulations Patient History Date of Service: 04/08/20 Reason for admission: Chest pain History of Present Illness: 49-year-old woman with a history of pancreatic cancer on chemotherapy, history of MS in the past, history of cardiac stents 1 year ago presented emergency department with chest pain of onset yesterday in the afternoon, intermittent in nature, described as stabbing central chest pain, maximum intensity 7/10, no known aggravating or relieving factors, no associated palpitation and dizziness. The patient stated her blood pressure got elevated whenever the chest pain intensifies. Her initial troponin in the ED is negative. EKG demonstrates sinus bradycardia with no ischemic changes. Chest x-ray is unremarkable. Given patient high cardiac risk factors including personal history, she is placed under observation for ACS rule out. Allergies Iodine Allergy (Uncoded 07/02/19 03:25) Shortness of breath Home Medications: Aspirin [Aspirin EC 81 MG] 1 tab PO BEDTIME 06/21/19 Atorvastatin Calcium [Lipitor] 80 mg PO BEDTIME 06/21/19 Cholecalciferol (Vitamin D3) [Vitamin D3] 1 cap PO SEECOM 06/21/19 Clopidogrel Bisulfate [Plavix*] 1 tab PO DAILY 06/21/19 Ezetimibe 1 tab PO BEDTIME 06/21/19 Metformin HCl [Metformin HCl ER] 1 tab PO BID 06/21/19 Metoprolol Tartrate 1 tab PO BID 06/21/19 Pregabalin 1 cap PO DAILY 06/21/19 Amlodipine Bes/Olmesartan Med [Amlodipine-Olmesartan 5-40 mg] 1 each PO DAILY 07/02/19 Evolocumab [Repatha Sureclick] 1 ml SQ SEECOM 01/23/20 Insulin Aspart [Novolog Flexpen] 25 units SQ TID 01/23/20 Insulin Degludec [Tresiba Flextouch U-200] 60 units SQ BEDTIME 01/23/20 Icosapent Ethyl [Vascepa 1 gm Cap] 2 gm PO BID #120 cap 01/24/20 Aripiprazole [Abilify] 7.5 mg PO DAILY 03/09/20 Hydrocodone 5/APAP 325 [[place] 5/325*] 1 tab PO Q8H PRN 03/09/20 Ondansetron HCl [Zofran] 1 tab PO Q4H PRN 03/09/20 ARIPiprazole [Abilify*] 7.5 mg PO DAILY tab 03/10/20 Atorvastatin Calcium [Lipitor] 80 mg PO BEDTIME tab 03/10/20 levoFLOXacin [Levaquin*] 750 mg PO DAILY #5 tab 03/10/20 metroNIDAZOLE [Flagyl] 500 mg PO Q8H 5 Days #15 tablet 03/10/20 - Past Medical/Surgical History Diabetic: No -: HTN -: Diabetes mellitus type insulin-dependent -: Hyperlipidemia -: CAD with prior stent -: Fatty liver -: Obesity -: Chronic pain -: carpal tunnel repair -: tubal ligation -: Cardiac stents Psychosocial/ Personal History: Patient is - Family History Father -: Other (see notes) Notes: Alzeimehrs, aneursym Mother -: Hypertension, Cancer Notes: breast, colon - Social History Alcohol use: No CD- Drugs: No Caffeine use: Yes Review of Systems Other: Except as documented, all other systems reviewed and negative. Physical Examination - Physical Exam General: Alert, In no apparent distress, Oriented x3 HEENT: Atraumatic, Mucous membr. moist/pink, Sclerae nonicteric Neck: Supple, JVD not distended, No Thyromegaly Respiratory: Clear to auscultation bilaterally, Normal air movement Cardiovascular: No edema, Normal pulses, Regular rate/rhythm, Normal S1 S2 Gastrointestinal: Normal bowel sounds, Soft and benign, Non-distended, No tenderness Musculoskeletal: No swelling, No erythema Integumentary: No breakdown, No erythema Neurological: Normal speech, Normal strength at 5/5 x4 extr, Cranial nerves 3-12 intact - Studies Laboratory Data (last 24 hrs) 04/07/20 22:08: PT 12.5, INR 1.06 04/07/20 22:08: WBC 4.7 D, Hgb 12.5, Hct 36.5, Plt Count 403 D 04/07/20 22:08: Sodium 141, Potassium 3.5, BUN 15, Creatinine 1.07, Glucose 276 H, Magnesium 1.9, Total Bilirubin 0.3, AST 33, ALT 103 H, Alkaline Phosphatase 72 Assessment and Plan - Problems (Diagnosis) (1) History of MS (myocardial infarction) Current Visit: Yes Status: Acute (2) History of heart artery stent Current Visit: Yes Status: Acute (3) CAD (coronary artery disease) Current Visit: No Status: Acute (4) Chest pain Onset Date: 11/19/15 Current Visit: No Status: Acute (5) Pancreatic cancer Current Visit: No Status: Acute (6) Diabetes mellitus Onset Date: 12/20/16 Current Visit: No Status: Chronic - Plan Place under observation. Trend troponin Continue home dose aspirin, Plavix, metoprolol. Check lipid profile Cardiology consult Nuclear stress test pending troponin result. Lantus insulin and premeal insulin for glucose management. : - Advance Directives Does patient have a Living Will: No Does patient have a Durable POA for Healthcare: No
[2020-04-08] MEDS ORDERED: MORPHINE 4 MG/ML SYR IV PRN (01:49)
[2020-04-08] MEDS ORDERED: D50W 25 GM/50 ML SYRINGE/VIAL IV PRN ×2 (01:49)
[2020-04-08] MEDS ORDERED: GLUCAGON 1 MG/VIAL IM PRN ×2 (01:49)
[2020-04-08] MEDS ORDERED: NITROGLYCERIN 0.4 MG/TAB SL PRN (01:49)
[2020-04-08 02:15] VITALS: BMI 35.6
[2020-04-08 02:24] LABS: Urine Blood NEGATIVE (NEG); Urine Glucose 2+ (NEG); Urine Protein NEGATIVE (NEG); Urine Specific Gravity >1.030 (1.005-1.030); Urine pH 5.5 (5.0-7.0)
[2020-04-08 04:31] VITALS: O2SAT 96
--- NOTE | 2020-04-08 07:26 | RAD REPORT ---
EXAM DESCRIPTION: RAD - Chest Single View - 04/07/2020 10:13 pm CLINICAL HISTORY: CHEST PAIN COMPARISON: Single-view chest March 09, 2020 TECHNIQUE: AP portable chest image was obtained 04/07/2020 10:13 pm . FINDINGS: Lung volumes are low. No significant failure or volume overload. No focal mass, consolidat ion or peripheral ground-glass opacification clearly evident. Heart and vasculature are normal. No me asurable pleural effusion and no pneumothorax. No acute bony abnormality seen. No acute aortic findin gs suspected. IMPRESSION: No acute chest finding identifiable. Low lung volumes limit the examination. Repeat imaging with optimal inspiratory effort could be perfo rmed if there are persistent or progressive clinical findings.
[2020-04-08] MEDS: INSULIN -REGULAR HUMAN 50 UNIT/0.5 ML ML SQ SCH ×5 (07:30→12:11)
--- NOTE | 2020-04-08 07:54 | P.DS ---
Admission Date: 04/08/20 Discharge Date: 04/08/20 Disposition: ROUTINE DISCHARGE Discharge Condition: FAIR Reason for Admission: Chest pain - Problems (1) History of ID (myocardial infarction) Status: Acute (2) History of heart artery stent Status: Acute (3) CAD (coronary artery disease) Status: Acute (4) Chest pain Onset Date: 11/19/15 Status: Acute (5) Pancreatic cancer Status: Acute (6) Diabetes mellitus Onset Date: 12/20/16 Status: Chronic Brief History of Present Illness: 49-year-old woman with a history of pancreatic cancer on chemotherapy, history of ID in the past, history of cardiac stents 1 year ago presented emergency department with chest pain of onset yesterday in the afternoon, intermittent in nature, described as stabbing central chest pain, maximum intensity 7/10, no known aggravating or relieving factors, no associated palpitation and dizziness. The patient stated her blood pressure got elevated whenever the chest pain intensifies. Her initial troponin in the ED is negative. EKG demonstrates sinus bradycardia with no ischemic changes. Chest x-ray unremarkable. Given patient high cardiac risk factors including personal history, she was placed under observation for ACS rule out. Hospital Course: Patient was placed under observation in telemetry. Troponin trended x3 were negative. Nuclear stress test was performed and result was negative for ischemia. Patient was seen and evaluated by cardiology and deemed clinically stable for discharge. She was chest pain-free during hospitalization. Vital Signs/Physical Exam: Temp Pulse Resp BP Pulse Ox 96.8 F 80 16 124/58 L 98 04/08/20 03:03 04/08/20 03:03 04/08/20 03:03 04/08/20 03:03 04/08/20 03:03 General: Alert, In no apparent distress Neck: JVD not distended Respiratory: Clear to auscultation bilaterally, Normal air movement Cardiovascular: No edema, Regular rate/rhythm, Normal S1 S2 Gastrointestinal: Normal bowel sounds, Soft and benign, No tenderness Musculoskeletal: No swelling Laboratory Data at Discharge: WBC 4.7 K/uL (4.3-10.9) D 04/07/20 22:08 Hgb 12.5 g/dL (12.0-15.0) 04/07/20 22:08 Hct 36.5 % (36.0-45.0) 04/07/20 22:08 Plt Count 403 K/uL (152-406) D 04/07/20 22:08 PT 12.5 SECONDS (9.5-12.5) 04/07/20 22:08 INR 1.06 04/07/20 22:08 Sodium 141 mmol/L (136-145) 04/07/20 22:08 Potassium 3.5 mmol/L (3.5-5.1) 04/07/20 22:08 BUN 15 mg/dL (7-18) 04/07/20 22:08 Creatinine 1.07 mg/dL (0.55-1.3) 04/07/20 22:08 Glucose 276 mg/dL (74-106) H 04/07/20 22:08 Magnesium 1.9 mg/dL (1.8-2.4) 04/07/20 22:08 Total Bilirubin 0.3 mg/dL (0.2-1.0) 04/07/20 22:08 AST 33 U/L (15-37) 04/07/20 22:08 ALT 103 U/L (12-78) H 04/07/20 22:08 Alkaline Phosphatase 72 U/L (45-117) 04/07/20 22:08 Troponin I < 0.02 ng/mL (0.0-0.045) 04/08/20 06:07 Home Medications: Aspirin [Aspirin EC 81 MG] 1 tab PO DAILY 06/21/19 Clopidogrel Bisulfate [Plavix*] 1 tab PO DAILY 06/21/19 Ezetimibe 1 tab PO BEDTIME 06/21/19 Metformin HCl [Metformin HCl ER] 1 tab PO BID 06/21/19 Metoprolol Tartrate 1 tab PO BID 06/21/19 Amlodipine Bes/Olmesartan Med [Amlodipine-Olmesartan 5-40 mg] 1 each PO DAILY 07/02/19 Evolocumab [Repatha Sureclick] 1 ml SQ SEECOM 01/23/20 Insulin Aspart [Novolog Flexpen] 25 units SQ TID 01/23/20 Insulin Degludec [Tresiba Flextouch U-200] 60 units SQ BEDTIME 01/23/20 ARIPiprazole [Abilify*] 7.5 mg PO DAILY tab 03/10/20 Atorvastatin Calcium [Lipitor] 80 mg PO BEDTIME tab 03/10/20 Icosapent Ethyl [Vascepa 1 gm Cap] 1 gm PO TID 04/08/20 Nitroglycerin [Nitrostat*] 0.4 mg SL UD PRN #25 tab 04/08/20 New Medications: Nitroglycerin [Nitrostat*] 0.4 mg SL UD PRN #25 tab PRN Reason: Pain Scale 2-4 (Mild) Diet: ADA Activity: Ad rena Followup: Rasheed Romero MD [ACTIVE - CAN ADMIT] - 1-2 Weeks (Call to make an appointment. )
[2020-04-08] MEDS: METOPROLOL TAR 50 MG TAB PO SCH ×3 (09:00→12:11)
[2020-04-08] MEDS ORDERED: ASPIRIN EC 81 MG TAB PO SCH (09:00)
[2020-04-08] MEDS ORDERED: ENOXAPARIN 40 MG/0.4 ML SQ SCH (09:00)
[2020-04-08] MEDS ORDERED: REGADENOSON 0.4 MG/5 ML SYR IV ONE (09:12)
[2020-04-08] MEDS ORDERED: INSULIN GLARGINE 100 UNITS/ML SQ SCH (10:00)
[2020-04-08] MEDS ORDERED: MORPHINE 2 MG/ML SYR IV PRN (10:10)
--- NOTE | 2020-04-08 10:14 | EKG ---
Test Date: 2020-04-07 Test Time: 21:49:38 Cnc Lathe Machinist: ADRIANO MEASUREMENT RESULTS: Intervals: Rate: 104 AK: 132 QRSD: 68 QT: 340 QTc: 447 [place]: P: 50 AK: 132 QRS: 29 T: 37 INTERPRETIVE STATEMENTS: Sinus tachycardia Otherwise normal ECG Compared to ECG 03/09/2020 23:22:55 Sinus rhythm no longer present Electronically Signed On 04-08-20 10:13:48 CDT by Rasheed Romero
--- NOTE | 2020-04-08 11:56 | CON ---
Date of Consultation: 04/08/2020 Reason For Consultation: Atypical chest pain, hypertension, and headache. History Of Present Illness: Ms. Ordaz is 49-year-old woman who has had a history of depression, hyp ertension, dyslipidemia, diabetes. She has pancreatic cancer. She is on chemotherapy now by Dr. Baljeet fontana. She has had a history of RCA stent in 3 different locations in October of [address] Fabian. S he came in with atypical mid epigastric sharp stabbing chest pain, nonradiating, but in different loc ations intermittently, not exertional. Denied any PND, orthopnea, pedal edema, palpitations, or sync ope. Denied any nausea or vomiting or diaphoresis. Her EKG was unremarkable. Chest x-ray was unrem arkable. Troponin was negative. Past Medical History: As stated above. Allergies: SHE IS ALLERGIC TO IODINE AND CIPROFLOXACIN. Review of Systems: Negative. Social History: Negative. Family History: Noncontributory. Medications: At home include Zetia, Abilify, Lotrel, insulin, metformin, metoprolol, Vascepa, aspiri n Plavix, and Lipitor. Physical Examination: General: She weighed 221 pounds. She was very pleasant, in no acute distress this morning. No symp toms. Vital Signs: Stable, afebrile. HEENT: Negative. Neck: Supple. No bruit. Chest: Clear. Cardiac: Exam revealed a regular rhythm and rate. No murmurs, gallops, or rubs. Abdomen: Benign. Extremities: Revealed no clubbing, cyanosis, or edema. Diagnostic Data: Unremarkable. Impression And Plan: Atypical chest pain in a patient with history of hypertension, diabetes, dyslip idemia, recent stent in 2019 in October. She is due for another stress test and that is pending tocole rapp. Echocardiogram is pending as well. Her other problems including hypertension, diabetes, and dys lipidemia are well controlled. She is allergic to iodine. We will have to address that if we need t o do another catheterization. She has pancreatic cancer and chronic pancreatitis. She is on the almaz motherapy protocol by Dr. Karimi. We will continue to follow her. Her stress test is negative. She c an go home today. JL/JACKELINE Voice ID: [id number] Report ID: [id number]
[2020-04-08 12:01] VITALS: BP 149/67; TEMP 97.1
--- NOTE | 2020-04-08 12:26 | RAD REPORT ---
EXAM DESCRIPTION: NM - Rest Stress Cardiac Imaging - 04/08/2020 12:02 pm CLINICAL HISTORY: Chest pain COMPARISON: November 2015 TECHNIQUE: The patient was administered approximately 10 mCi of Tc 99m Sestamibi prior to resting SP ECT imaging of the heart. The patient was then administered approximately 30 mCi of Tc 99m Sestamibi following exercise or pharmacologic stress. Multiplanar SPECT images were reviewed. FINDINGS: The end diastolic volume is 93 ml, the end systolic volume is 38 ml, and the ejection frac tion is 60 %. Ventricular volumes and ejection fraction are similar to the prior study. Small area of decreased activity is seen in the anterior wall near the apex on stress imaging. This i s absent or less pronounced on the rest sequencing. A similar pattern was seen in 2016. It is unknown if the patient underwent any cardiac catheterization procedure to evaluate the suspected stress isch emia. A new moderately large area diminished activity in the inferolateral wall is present not clearly diff erent between rest and stress imaging. Moderately large area of decreased activity along the inferior wall near the base also noted and new from prior imaging. IMPRESSION: Small focus of suspected stress ischemia anterior wall near the apex is similar to the 2 016 study. It is unknown if the patient underwent any cardiac catheterization procedure that evaluate d this region. New fixed defect along the inferior wall and inferolateral wall when compared to 2016. These may be areas of scarring and can be correlated with EKG findings. Given the stable ventricular volumes and ejection fraction the new inferior wall findings are potenti ally artifact from the diaphragm. Ventricular volumes and ejection fraction are normal range in similar to 2016.
--- NOTE | 2020-04-09 08:21 | TREADPHA ---
DX: CORONARY ARTERY DISEASE WITH CHEST PAIN Date of Study: Ht: 5' 6 " Wt: 221 lb 3.2 oz Consulting Physician: FRANCHESKA MEDICATIONS: ASPIRIN, DEXTROSE, LOVENOX, LANTUS, NOVOLIN-R, LOPRESSOR, NITROSTAT HISTORY: 49 YEAR OLD FEMALE WITH HISTORY OF HYPERTENSION, INSULIN DEPENDENT DIABETES MELLITUS, HIGH CHOLESTEROL, MYOCARDIAL INFARCTION, STENTx3, PANCREATIC CANCER, ADMITTED FOR CHEST PAIN PHYSICIAL EXAMINATION: RESTING B.P.: 152/84 RESTING H.R.: 77 RESTING EKG: NORMAL. PROTOCOL: LEXISCAN EXERCISE TIME: 3:30 B.P. AT PEAK STRESS: 157/87 IMPRESSION: LEXISCAN STRESS TEST PERFORMED. CARDIOLITE INJECTED PER PROTOCOL. NO SUPRA VENTRICULAR TACHYCARDIA, NO VENTRICULAR TACHYCARDIA, NO ARRHYTHMIAS NOTED. PATIENT DENIED CHEST PAIN. RESPIRATIONS EVEN NON LABORED. TOLERATED WELL. SEE NUCLEAR MEDICINE REPORT.
--- NOTE | 2020-04-09 10:53 | RAD REPORT ---
EXAM DESCRIPTION: CT - Head Brain Wo Cont - 04/08/2020 3:13 am CLINICAL HISTORY: 49 years Female, HEADACHE TECHNIQUE: 5 mm axial images were obtained along with 3 mm reformatted coronal and sagittal images. This exam was performed according to our departmental dose-optimization program, which includes autom ated exposure control, adjustment of the mA and/or kV according to patient size and/or use of iterati ve reconstruction technique. COMPARISON: None. FINDINGS: No acute abnormal extracerebral fluid collections are demonstrated. The cortical sulci, ventricles, and cisterns are within normal limits. There are no areas of altered attenuation identified to suggest acute hemorrhage, infarction, or mass lesion. The visualized portions of the paranasal sinuses and mastoid air cells are clear. IMPRESSION: 1. Normal study. Electronically signed by: Curry Chang MD 04/07/2020 10:55 PM CDT Due to temporary technical issues with the PACS/Fluency reporting system, reports are being signed by the in house radiologist without review as a courtesy to ensure prompt reporting. The interpreting r adiologist is fully responsible for the content of the report.
== END 2020-04-08 14:50 | disposition home or self-care (01) ==
LOC: ER 21:32 → 4TH 04-08 01:46 → 2ND 04-08 01:47
PROVIDERS: ADMIT Internal Medicine; ATTEND Internal Medicine
DX: R07.89 Other chest pain (principal); I10 Essential (primary) hypertension; I25.10 Atherosclerotic heart disease of native coronary artery without angina pectoris; E11.9 Type 2 diabetes mellitus without complications; C25.9 Malignant neoplasm of pancreas, unspecified; K86.1 Other chronic pancreatitis; G89.29 Other chronic pain; E78.5 Hyperlipidemia, unspecified; K76.0 Fatty (change of) liver, not elsewhere classified; I25.2 Old myocardial infarction; F32.9 Major depressive disorder, single episode, unspecified; E66.9 Obesity, unspecified; Z68.35 Body mass index [BMI] 35.0-35.9, adult; F17.210 Nicotine dependence, cigarettes, uncomplicated; Z79.4 Long term (current) use of insulin; Z79.82 Long term (current) use of aspirin; Z79.02 Long term (current) use of antithrombotics/antiplatelets; Z91.041 Radiographic dye allergy status; Z95.5 Presence of coronary angioplasty implant and graft; Z80.3 Family history of malignant neoplasm of breast; Z80.0 Family history of malignant neoplasm of digestive organs; Z83.3 Family history of diabetes mellitus; Z82.49 Family history of ischemic heart disease and other diseases of the circulatory system
CPT/HCPCS: 96361; 93005; 93017; 85025; 80048; 36415; 83735; 85610; 82947 ×3; 80076; 81003; 84484 ×3; 83880; 70450; 71045; 94760 ×2; 78452; 96375; 96374; 99285; U0002; J2785; J7030; J2405; A9500; G0378 ×2; J1650

== ENCOUNTER 2020-05-23 14:23 | Emergency (ER) | payer BC ==
--- OUTSIDE RECORDS SUMMARY | 2020-05-23 14:26 | XMS REPORT | Clinical Summary ---
:1970 Author Organization [facility] Address [address] [place] [address] Care Team Providers Name Role Phone Onur Perez MD Primary Care Provider Allergies Active [...] 2018 SHINGLES VACCINES (#1) 2018 INFLUENZA VACCINE 06/19/2020 Results Not on fileafter 05/23/2019 Advance Directives For more information, please contact: [phone] Type Date Recorded Patient Crisis Nurse Explanati on Advance Directives, Living Will and Medical Power of Sil[place] Spotter
--- OUTSIDE RECORDS SUMMARY | 2020-05-23 14:27 | XMS REPORT | Clinical Summary ---
:1970 Author Organization [facility] Address [address] [place] [address] Care Team Providers Name Role Phone Pcp, [...] Only General Internal Medicine 02/12/2020 Travel after 05/23/2019 Social History Tobacco Use Types Packs/Day Years [...] 378 ms QTC Calculation(Bazett) 472 ms P [place] 5 degrees R [place] -1 degrees T [place] 23 degrees Normal sinus rhythm Normal ECG No previous ECGs available ECG 12-LEAD STAT 02/12/2020 4:18 PM CDT Resu lts for this procedure are in the results section . after 05/23/2019 Results XR chest 2 views (02/12/2020 5:30 [...] MD Report Verified Date/Time:02/12/2020 17:35:52 Reading Location: [address] [facility] Reading Room Procedure Note Interface, [...] Verified Date/Time: 02/12/2020 1 7:35:52 Reading Location: [address] [facility] Reading Room Performing Organization Address City/State/Zipcode Phone Number [facility] SARS-CoV2/RT-PCR (Symptomatic ONLY) (02/12/2020 5:15 PM CDT) SARS-COV2/RT-PCR Not Detected Not Detected, Negative [facility] SARS-COV-2 PERFORMING LAB [facility] Specimen Other Narrative Performed At Negative results do not preclude SARS-CoV-2 [facility] infection and should not be used as [...] the Act. Fact Sheet for Healthcare Providers: https://www.[employer]/Documents/Xpert%20Xpre ss%20SARS%20CoV-2/Fact%20Sheets/3023802%20SAR S-COV-2%20HEALTHCARE%20PROVIDERS%20FACT%20SHEE T.pdf Fact Sheet for Healthcare Patients: https://www.[employer]/Documents/Xpert%20Xpre ss%20SARS%20CoV-2/Fact%20Sheets/3023801%20SAR S-COV-2%20PATIENT%20FACT%20SHEET.pdf Performing Laboratory: [address] [place] [address] Performing Organization Address City/State/Zipcode Phone Number [address] [address] CENTER CBC with platelet count + automated diff (02/12/2020 5:15 PM CDT) WBC 19.8 (H) 3.5 - 10.5 K/L [facility] RBC 5.14 3.93 - 5.22 M/L [facility] Hemoglobin 14.5 11.2 - 15.7 GM/DL [facility] Hematocrit 45.1 (H) 34.1 - 44.9 % [facility] MCV 87.7 79.4 - 94.8 fL [facility] MCH 28.2 25.6 - 32.2 pg [facility] MCHC 32.2 32.2 - 35.5 GM/DL [facility] RDW 12.6 11.7 - 14.4 % [facility] Platelets 217 150 - 450 K/CU MM [facility] MPV 10.8 9.4 - 12.3 fL [facility] nRBC 0 0 - 0 /100 WBC [facility] % Neutros 91 % [facility] % Lymphs 5 % [facility] % Monos 3 % [facility] % Eos 0 % [facility] % Baso 0 % [facility] # Neutros 18.10 (H) 1.56 - 6.13 K/L [facility] # Lymphs 0.90 (L) 1.18 - 3.74 K/L [facility] # Monos 0.62 (H) 0.24 - 0.36 K/L [facility] # Eos 0.02 (L) 0.04 - 0.36 K/L [facility] # Baso 0.05 0.01 - 0.08 K/L [facility] Immature 1 0 - 1 % [facility] Granulocytes-Relative [facility] Specimen Blood Performing Organization Address [facility] Cent[facility] Phone Number [address] [address] CENTER Troponin I (02/12/2020 5:15 PM CDT) Troponin I <0.01 0.00 - 0.03 ng/mL [facility] Specimen Blood Narrative Performed At Troponin I (TnI) levels must be interpreted [facility] in the context of the presenting symptoms and the clinical findings. Elevated TnI levels indicate myocardial damage, but are not specific for ischemic heart disease. Elevated TnI levels are seen in patients with other cardiac conditions (including myocarditis and congestive heart failure), and slight TnI elevations occur in patients with other conditions, including sepsis, renal failure, acidosis, acute neurological disease, and persistent tachyarrhythmia. Direct Sales Consultant ID - ARIES E Performing Organization Address City/[facility] Cent[facility]ode Phone Number [address] [address] CENTER B-type Natriuretic Factor (BNP) (02/12/2020 5:15 PM CDT) BNP 18 0 - 100 pg/mL [facility] Specimen Blood Narrative Performed At Direct Sales Consultant ID - ARIES E [facility] Performing Organization Address City/[facility]/Zipcode Phone Number [address] [address] CENTER Basic Metabolic Panel (02/12/2020 5:15 PM CDT) Sodium 139 136 - 145 meq/L [facility] Potassium 3.8 3.5 - 5.1 meq/L [facility] Chloride 106 98 - 107 meq/L [facility] CO2 25 22 - 29 meq/L [facility] BUN 10 7 - 21 mg/dL [facility] Creatinine 0.70 0.57 - 1.25 mg/dL [facility] Glucose 184 (H) 70 - 105 mg/dL [facility] Calcium 8.8 8.4 - 10.2 mg/dL [facility] EGFR 107Comment: INSUFFICIENT mL/min/1.73 sq m [facility] CLINICAL DATA TO CALCULATE [facility] ESTIMATED GFR. Specimen Blood Narrative Performed At Direct Sales Consultant ID - ARIES E [facility] Performing Organization Address City/State/Zipcode Phone Number [facility] [address] [place] [address] CENTER ECG 12 lead (02/12/2020 4:18 PM CDT) Specimen Narrative Performed At Ventricular Rate 94 BPM GE MUSE Atrial Rate 94 BPM P-R Interval 124 ms QRS Duration 72 ms Q-T Interval 378 ms QTC Calculation(Bazett) 472 ms P [place] 5 degrees R [place] -1 degrees T [place] 23 degrees Normal sinus rhythm Normal ECG No previous ECGs available Confirmed by MD VIVAR JOSEPH P ([id number]) on 0 6:29:32 AM Procedure Note Interface, External Ris In - 02/13/2020 6:29 AM CDT Ventricular Rate 94 BPM Atrial Rate 94 BPM P-R Interval 124 ms QRS Duration 72 ms Q-T Interval 378 ms QTC Calculation(Bazett) 472 ms P [place] 5 degrees R [place] -1 degrees T [place] 23 degrees Normal sinus rhythm Normal ECG No previous ECGs available Confirmed by MD VIVAR JOSEPH P ([id number]) on 02/13/2020 6:29:32 AM Performing Organization Address City/State/Zipcode Phone Number [employer] after 05/23/2019 Insurance Payer Benefit Plan / Group Subscriber ID Type Phone A ddress CDC REVIEW CDC REVIEW xxxxxxxx [address] [place], [place] [phone]
--- OUTSIDE RECORDS SUMMARY | 2020-05-23 14:28 | XMS REPORT | Continuity of Care Document ---
:1970 Author Organization [employer] Care Team Providers Name Role Phone [employer] Unavailable Un available Problems Problem Status Onset Classification Date Comments Sourc e Date Reported Urinary tract 03/02/2017 infection, site not 017 [place] specified ABD PAIN Active [facility] 017 [place] TMJ SYNDROME Active Condition 08/23/2014 [facility]14 [facility] MEDIAL MENISCUS TEAR, Active Condition 08/23/2014 LEFT 014 [facility] Tear of medial Resolved Problem 04/04/2020 Data meniscus of knee 014 migrated Med ical (disorder) from [facility],Mis Centricity jamee on 02/18/15. [facility], [facility] [place] Temporomandibular Resolved Problem 04/04/2020 Data H [id number] 014 migrate d Medical syndrome (disorder) from [facility],Mis Centricity jamee on 02/18/15. [facility], [facility] [place] POLYDIPSIA Active Condition 08/23/2014 014 [facility] Excessive thirst Resolved Problem 04/04/2020 Data (finding) 014 migrated Medical from [facility],Mis Centricity jamee on 02/18/15. [facility], [facility] [place] RHINITIS Inactive Condition 08/23/2014 014 [facility] UTI Inactive Condition 08/23/2014 014 [facility] Urinary tract Resolved Problem 04/04/2020 Data infectious disease 014 migrated M edical (disorder) from [facility],Mis Centricity jamee on 04/04/15. Neuro [facility] [place] HYPERTENSION Active Condition 08/23/2014 014 [facility] DYSLIPIDEMIA Active Condition 08/23/2014 014 [facility] ANXIETY DEPRESSION Active Condition 08/23/2014 014 [facility] OBESITY Active Condition 08/23/2014 014 [facility] PHYSICAL EXAMINATION Active Condition 08/23/2014 014 [facility] Dyslipidemia Active Problem 04/04/2020 Data MH (disorder) 014 migrated Medical from [facility],Mis Centricity jamee on 02/18/15. Neuro,[facility], [facility] [place] Hypertensive disorder, Active Problem 04/04/2020 Data MH systemic arterial 014 migrated Me dical (disorder) from Group,Mis Centricity jamee on 02/18/15. Neuro,[facility], [facility] [place] Mixed anxiety and Active Problem 04/04/2020 Data M H depressive disorder 014 migrated Medical (disorder) from [facility]is Centricity jamee on 02/18/15. Neuro,[facility] [place] Obesity (disorder) Active Problem 04/04/2020 Data 014 migrated Medical from [facility],Mis Centricity jamee on 02/18/15. Neuro,[facility] [place] Diabetes mellitus Active Problem 04/04/2020 M H (disorder) Medical Group,Mis jamee Neuro, [facility] [place] Diverticulitis Resolved Problem 04/04/2020 MH (disorder) [facility],Mis jamee Neuro,[facility] [place] Headache (finding) Active Problem 04/04/2020 Medical Group,[facility], [facility] [place] Hypercholesterolemia Active Problem 04/04/2020 (disorder) Medical Group,Mis jamee Neuro,[facility] [place] Lumbar radiculopathy Active Problem 04/04/2020 (disorder) [facility],Mis j[facility] Neuro, [facility] [place] Depressive disorder Active Problem 04/04/2020 (disorder) Medical Group,Mis jamee Neuro,[facility] [place] Myocardial infarction Active Problem 04/04/2020 MH (disorder) [facility]is j[facility]e Neuro, [facility] [place] Dysarthria (finding) Active Problem 04/04/2020 [facility] [...] cap, 3 Refill(s) , Pharmacy: [id number] repaglinide 2 mg oral 4 mg = [...] Active 500 MG Extended 1 tab, 2017 [place] Release Tablet PO, [Cipro] Daily, X 5 day, # 5 tab, 0 Refill(s) Benadryl 50 mg, Inactive Route: 2017 [place] IVP, ONCE, Dosing Weight 110.455, kg, Priority: STAT, Start date: 02/27/17 19:30:00 CDT, Stop date: 02/27/17 19:30:00 CDT Morphine 4 mg, Inactive Route: 2016 [place] IVP, ONCE, Dosing Weight 110.455, kg, Priority: STAT, Start date: 02/27/17 18:55:00 CDT, Stop date: 02/27/17 18:55:00 CDT Zofran 4 mg, Inactive Route: 2016 [place] IVP, Drug form: INJ, ONCE, Dosing Weight 110.455, kg, Priority: STAT, Start date: 02/27/17 18:55:00 CDT, Stop date: 02/27/17 18:55:00 CDT Saline Flush 0.9% Notes: Inactive (Same as: 2016 [place] BD Posiflush ) AMLODIPINE one daily Active [...] PANEL eGFR 95 02/27 Result Comment: The [place] eGFR is calculated using the CKD-EPI formula. [...] PANEL ASPARTATE 13 0 - 37 02/27 [place] CHEM PANEL BUN 10 7 - 22 02/27 [place] CHEM PANEL Creatinine 0.74 0.50 - 06 MH Lvl 1.40 [place] CHEM PANEL ALANINE 28 0 - 65 02/27 AMINO [place] ASE CHEM PANEL Albumin Lvl 3.6 3.5 - 5.0 02/27 [place] CHEM PANEL Alk Phos 81 39 - 136 02/27 [place] CHEM PANEL Glucose Lvl 123 70 - 99 02/27 [place] CHEM PANEL Bili Total 0.3 0.2 - 1.3 02/27 [place] CHEM PANEL Sodium Lvl 143 135 - 145 02/27 [place] CHEM PANEL Total Protein 7.9 6.4 - 8.4 02/27 [place] CHEM PANEL Calcium Lvl 8.9 8.5 - 10.5 02/27 [place] CHEM PANEL Chloride Lvl 107 95 - 109 02/27 [place] CHEM PANEL Potassium Lvl 3.9 3.5 - 5.1 02/27 [place] CHEM PANEL CO2 29 24 - 32 02/27 [place] CHEM PANEL A/G Ratio 0.8 0.7 - 1.6 02/27 [place] CHEM PANEL AGAP 10.9 10.0 - 02/27 MH 20.0 [place] CHEM PANEL Globulin 4.3 2.7 - 4.2 02/27 [place] CHEM PANEL B/C Ratio 14 6 - 25 02/27 [place] CHEM PANEL Lipase Lvl 157 73 - 393 02/27 [place] ENDOCRINOLO hCG Tot 1 02/27 [place] HEMATOLOGY Segs 64.7 45.0 - 02/27 MH 75.0 [place] HEMATOLOGY Lymphocytes # 2.9 1.0 - 5.5 02/27 [place] HEMATOLOGY Basophils # 0.1 0.0 - 0.2 02/27 [place] HEMATOLOGY Eosinophils # 0.4 0.0 - 0.5 02/27 [place] HEMATOLOGY Monocytes # 0.9 0.0 - 0.8 02/27 [place] HEMATOLOGY Segs-Bands # 7.8 1.5 - 8.1 02/27 [place] HEMATOLOGY Eosinophils 3.2 0.0 - 4.0 02/27 [place] HEMATOLOGY Monocytes 7.4 2.0 - 12.0 02/27 [place] HEMATOLOGY Lymphocytes 24.1 20.0 - 02/27 MH 40.0 [place] HEMATOLOGY Basophils 0.6 0.0 - 1.0 02/27 [place] HEMATOLOGY Hct 40.4 36.0 - 02/27 MH 48.0 [place] HEMATOLOGY Hgb 13.9 12.0 - 02/27 MH 16.0 [place] HEMATOLOGY RBC X 10x6 4.61 4.20 - 02/27 MH 5.40 [place] HEMATOLOGY WBC X 10x3 12.0 3.7 - 10.4 02/27 [place] HEMATOLOGY MPV 8.1 7.4 - 10.4 02/27 [place] HEMATOLOGY RDW 13.9 11.5 - 02/27 MH 14.5 [place] HEMATOLOGY Platelet 279 133 - 450 02/27 [place] HEMATOLOGY MCHC 34.5 32.0 - 02/27 MH 36.0 [place] HEMATOLOGY MCH 30.2 27.0 - 02/27 MH 31.0 [place] HEMATOLOGY MCV 87.5 80.0 - 02/27 MH 98.0 [place] URINE AND UA Bacteria Moderate None Seen 02/27 STOOL /HPF /HPF /2016 [place] URINE AND UA Sq Epi Few /LPF Few /LPF 02/27 STOOL /2016 [place] URINE AND UA WBC 11-20 None Seen 02/27 STOOL /HPF /HPF /2016 [place] URINE AND UA RBC 21-50 0 - 2 02/27 STOOL /HPF [place] URINE AND UA Nitrite See Note Negative 02/27 STO[facility] (02/27/17 5:29 PM) /2016 [place] URINE AND UA Leuk Est Moderate Negative 02/27 STOOL *ABN* /2016 [place] (02/27/17 5:29 PM) URINE AND UA 4.0 0.1 - 1.0 02/27 STOOL Urobilinogen /2016 [place] URINE AND UA Glucose See Note 1 Negative 02/27 Result STO[facility] (02/27/17 5:29 PM) /2016 Comment: Patricia and Unable to determine due to interference from color of urine.
17:57 cg URINE AND UA Ketones Negative Negative 02/27 STOOL *NA* /2016 [place] (02/27/17 5:29 PM) URINE AND UA Bili See Note Negative 02/27 STOOL (02/27/17 5:29 PM) /2016 [place] URINE AND UA Blood Large Negative 02/27 STOOL *ABN* [place] (02/27/17 5:29 PM) URINE AND UA Protein >=300 Negative 02/27 STOOL mg/dL mg/dL [place] URINE AND UA Turbidity Slight Cloudy Clear 02/27 [facility] (02/27/17 5:29 PM) /2016 [place] URINE AND UA Spec Grav >=1.030 <=1.030 02/27 STOOL *ABN* /2016 [place] (02/27/17 5:29 PM) URINE AND UA pH 5.5 5.0 - 8.0 02/27 STOOL /2016 [place] URINE AND UA Color [place] Yellow 02/27 STOOL *ABN* /2016 [place] (02/27/17 5:29 PM) URINE CHEM U Preg [...] 251 K/CMM 133 - 450 01/17 [facility]emat[facility] HGB 14.9 12.0 - 01/17 16.0 /2013 [facility] HCT 43.8 36.0 - 01/17 48.0 /2014 [facility] Hematology PLATELETS 251 K/CMM 133 - 450 01/17 [facility] Paper [employer] 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 02/27/2017 [facility] contrast only CT HISTORY: Left lower quadrant [...] Comments Source Systolic (mm Hg) 142 02/07/2020 [facility] Diastolic (mm Hg) 99 02/07/2020 [facility] Ne uro Heart Rate 80 02/07/2020 [facility] Neuro Respitory Rate 16 02/07/2020 [facility] Neuro Height 167.64 cm 02/07/2020 [facility] Neuro Weight 108.182 02/07/2020 [facility] Neuro BMI Calculated 38.49 02/07/2020 [facility] Neuro Systolic (mm Hg) 132 12/05/2019 [facility] Roxy ro Diastolic (mm Hg) 77 12/05/2019 [facility] Ne uro Heart Rate 85 12/05/2019 [facility] Neuro Respitory Rate 16 12/05/2019 [facility] Neuro Height 167.64 cm 12/05/2019 [facility] Neuro Weight 111.818 12/05/2019 [facility] Neuro BMI Calculated 39.79 12/05/2019 [facility] Neuro Systolic (mm Hg) 137 10/12/2019 Medical [...] [facility] Heart [facility] 91 [facility]18[facility] Respitory Rate 16 05/18/2019 [facility] [...] uro Systolic (mm Hg) 133 02/28/2017 MH [place] Diastolic (mm Hg) 63 02/28/2017 [place] Respitory Rate 18 02/28/2017 [place] Temperature Oral (F) 98 F 02/28/2017 [place] Heart Rate 82 02/28/2017 MH [place] Systolic (mm Hg) 142 02/28/2017 MH [place] Diastolic (mm Hg) 70 02/28/2017 [place] Heart Rate 122 02/27/2017 MH [place] Systolic (mm Hg) 128 02/27/2017 MH [place] Diastolic (mm Hg) 85 02/27/2017 [place] Temperature Oral (F) 98.6 F 02/27/2017 [facility] Respitory Rate 18 02/27/2017 [facility] Height 167.64 cm 02/27/2017 [facility] BMI Calculated 39.3 02/27/2017 [facility] Weight 110.455 02/27/2017 [facility] Height 65.5 08/23/2014 [facility]ou [...] Type Number For Provider Date Date Visit [facility] Lab Report [id number] Samson 01/17 01/17 Srini 6980 [facility] Office [id number] Samson 03/29 03/29 [place] Visit 1590 [facility] Office [id number] Samson 05/10 05/10 Srini Visit 5240 , Medical [facility] Lab Report [id number] Samson 05/10 05/10 [place] 2930 [place], Medical [facility] Office [id number] Samson 08/23 08/23 [place] Visit 3330 [place], Medical [facility] Emergency [id number] Spike 02/27 02/28 Srini Wenceslao /2016 [facility]NA Outpatient [id number] Ruy 04/03 04/04 [facility] [place] Outpatient [id number] Ruy 05/18 Active [facility] Kre Srini MNA Outpatient [id number] Ruy 05/18 05/19 [facility] [place] Outpatient [id number] Ruy 06/27 Active [facility] [place] MNA Outpatient [id number] Ruy 06/27 06/28 [facility] [place] Outpatient [id number] Ruy 08/08 Active [facility] Srini MNA Outpatient [id number] Ruy 08/08 08/09 [facility] [place] Outpatient [id number] Nadim 10/12 Active [facility] Therese Srini [facility] Outpatient [id number] Nadim 10/12 10/13 [facility] Therese /2019 Medic al [facility] Between [id number] 10/13 10/14 Gastro[facility] Visit /2019 Medic al ology [facility] Outpt Diag [id number] Nadim 10/30 10/31 [facility] Therese /2019 [facility] [place] Outpatient [id number] Ruy 12/04 Active [facility] [place] [facility] Outpatient [id number] Ruy 12/04 12/05 [facility]2019 [facility] [place] Outpatient [id number] Ruy 01/09 Active [facility] Kre Srini [facility] Outpatient [id number] Ruy 01/09 01/10 [facility] [place] /2019 [facility] [place] Outpatient [id number] Ruy 02/06 [facility]2019 [place] [facility] Outpatient [id number] Ruy 02/06 02/07 [facility] [place]rell /2019 [facility] [place] Outpatient [id number] Ruy 04/02 Active [facility] Krell /2019 Srini [facility] Ambulatory [id number] Ruy 04/02 04/02 [facility] [place] Outpatient [id number] Ruy 05/23 Active [facility] Krell /2019 Srini Outpatient [id number] Ruy 05/23 Active [facility] Krell /2019 [place] Procedures Procedure Code Date Perfomer Comments Source smoking/tobacco 14 01/17/2014 [facility] l cessation, patient Group education and counseling mammogram 11455 04/19/2013 [facility] vaginal Pap smear 58913 02/17/2013 Complete [facility] johnny results Group Assessment and Plan No Data Provided for This Section Plan of Care No Data Provided for This Section Social History Social History Date Source Social History TypeResponse 04/03/2019 [facility] Employment/School Status: Employed. Work/School description: [employer]. Smoking Status Current every day smoker; Type: Cigarett es; Exposure to Tobacco Smoke Unable to obtain; Cigarette Smoking Last 365 Days Yes; Reg Smoking Cessation Counseling No entered on: 02/07/20 Social History TypeResponse 04/03/2019 Lisa george Employment/School Status: Employed. Work/School description: [employer]. Smoking Status Current every day smoker; Lives with chau eone who smokes; Cigarette Smoking Last 365 Days Yes; Reg Smoking Cessation Counseling Yes entered on: 10/12/19 Social History TypeResponse 04/03/2019 ROCAEL Morris Employment/School Status: Employed. Work/School description: [employer]. Smoking Status Current every day smoker; Lives [...]
--- OUTSIDE RECORDS SUMMARY | 2020-05-23 14:29 | XMS REPORT | Continuity of Care Document ---
:1970 Author Organization [facility] t Address [address] [place] [address] Care Team Providers Name Role Phone Onur Perez MD Primary Care Physician Valentín Mac Attending Clinician KARIN KERN Attending Clinician Unavailable Karin Kern MD Attending Clinician Jorge Saleh Attending Clinician Jorge A Billy Attending Clinician Payers Payer Name Policy Type Policy Number Effective Date Expiration Date S ource [facility] REVIEWCDC xxxxxxxx [facility] REVIEWxxxxxxxxPO [facility] [id number] Center Problems Condition Condition Condition Status Onset Resolution Last Treating Co mments Source Name Details Category Date Date Treatment Clinician Date ABD PAIN Diagnosis Active 2017-02-27 M emoria - 17:40:00 l ABD PAIN 00:00: Juan F n 00 Active 02/27/2017 [facility] Srini TMJ Condition Active 2013-092014-08-23 Mem oria SYNDROME 2-05 10:51:01 l TMJ 00:00: [place] SYNDROME 00 Active 08/23/2014 Condition [facility] MEDIAL Condition Active 2013-092014-08-23 Mem oria MENISCUS 2-05 10:51:01 l TEAR, LEFT MEDIAL 00:00: Herm birgit MENISCUS 00 TEAR, LEFT Active 08/23/2014 Condition [facility] POLYDIPSIA Condition Active 2014-08-23 Memoria 8- 10:51:01 l 00:00: [place] POLYDIPSIA 00 Active 05/10/2014 Condition [facility] HYPERTENSI Condition Active 2014-08-23 Memoria ON 01-17 10:51:01 l 00:00: Srini HYPERTENSI 00 ON Active 4 Condition 08/23/2014 Medical Group DYSLIPIDEM Condition Active 2014-08-23 Memoria IA 01-17 10:51:01 l 00:00: Srini DYSLIPIDEM 00 IA Active 4 Condition 08/23/2014 Medical Group ANXIETY Condition Active 2014-08-23 Me moria DEPRESSION - 10:51:01 l ANXIETY 00:00: [place] DEPRESSION 00 Active 01/17/2014 Condition [facility] OBESITY Condition Active 2014-08-23 Me moria 5- 10:51:01 l OBESITY 00:00: [place] 00 Active 01/17/2014 Condition [facility] PHYSICAL Condition Active 2014-08-23 M emoria EXAMINATIO - 10:51:01 l N PHYSICAL 00:00: Juan F n EXAMINATIO 00 N Active 01/17/2014 Condition [facility] Dyslipidem Problem Active 2020-04-04 M emoria ia 01-17 21:52:06 l (disorder) 00:00: Juan F n Dyslipidem 00 ia (disorder) Active 01/17/2014 Problem 04/04/2020 Data migrated from [employer] on 02/18/15. Medical Group,[facility] her Neuro, [place],[facility] [place] Hypertensi Problem Active 2020-04-04 M emoria ve 01-17 21:52:06 l disorder, 00:00: Srini systemic Hypertensi 00 arterial ve (disorder) disorder, systemic arterial (disorder) Active 01/17/2014 Problem 04/04/2020 Data migrated from [employer] on 02/18/15. Medical Group,[facility] her Neuro,[facility] [place],M [facility] [place] Mixed Problem Active 2020-04-04 Memor ia anxiety 5- 21:52:06 l and Mixed 00:00: [place] depressive anxiety 00 disorder and (disorder) depressive disorder (disorder) Active 01/17/2014 Problem 04/04/2020 Data migrated from [employer] on 02/18/15. Medical Group,[facility] her Neuro, [place],M H [facility] [place] Obesity Problem Active 2020-04-04 Alexey farida (disorder) 01-17 21:52:06 l Obesity 00:00: Srini (disorder) 00 Active 01/17/2014 Problem 04/04/2020 Data migrated from [employer]city on 02/18/15. Medical Group,[facility] her Neuro, [place],M H [facility] [place] Diverticul Problem Resolve 2020-04-04 Memoria itis d 21:52:06 l (disorder) Juan F n Diverticul itis (disorder) Resolved Problem 04/04/2020 Medical Group,[facility] her Neuro, [place],M H [facility] [place] Diabetes Problem Active 2020-04-04 Mem oria mellitus 21:52:06 l (disorder) Diabetes He rmann mellitus (disorder) Active Problem 04/04/2020 Medical Group,[facility] her Neuro, OP[facility] [place] Headache Problem Active 2020-04-04 Mem oria (finding) 21:52:06 l Headache Juan F n (finding) Active Problem 04/04/2020 Medical Group,[facility] her Neuro, [facility] [place] Hyperchole Problem Active 2020-04-04 M emoria sterolemia 21:52:06 l (disorder) Juan F n Hyperchole sterolemia (disorder) Active Problem 04/04/2020 Medical Group,[facility] her Neuro, [place],M H [facility] [place] Lumbar Problem Active 2020-04-04 Memor ia radiculopa 21:52:06 l thy Lumbar Srini (disorder) radiculopa thy (disorder) Active Problem 04/04/2020 Medical Group,[facility] her Neuro, [facility] [place] Depressive Problem Active 2020-04-04 M emoria disorder 21:52:06 l (disorder) Juan F n Depressive disorder (disorder) Active Problem 04/04/2020 Medical Group,[facility] her Neuro, [place],M H OP[facility] [place] Myocardial Problem Active 2020-04-04 M emoria infarction 21:52:06 l (disorder) Juan F n Myocardial infarction (disorder) Active Problem 04/04/2020 Medical Group,[facility] her Neuro,[facility] [place] Dysarthria Problem Active 2020-04-04 M emoria (finding) 21:52:06 l [place] Dysarthria (finding) Active Problem 04/04/2020 [facility] Paresthesi Problem Active 2020-04-04 M emoria a 21:52:06 l (finding) Srini Paresthesi a (finding) Active Problem 04/04/2020 [facility] Urinary Problem 2016-2017-03-02 2017-03-02 Memoria tract 6- 00:42:19 00:42:19 l [...] Resolved 08/23/2014 Problem 04/04/2020 Data migrated from [employer] on 02/18/15. 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 Medical Group,[facility] her Neuro,Puneet Ocampo OPID [place] Excessive Problem Resolve 2013-2020-04-04 2020-04-04 Memoria thirst d 8-22 21:52:06 21:52:06 l (finding) 00:00: [place] Excessive 00 thirst (finding) Resolved 05/10/2014 Problem 04/04/2020 Data migrated from [employer] on 02/18/15. Medical Group,[facility] her Neuro,Puneet Ocampo OPID [place] Urinary Problem Resolve 2020-04-04 2020-04-04 Memoria tract d 03-29 21:52:06 21:52:06 l infectious Urinary 00:00: Her ley disease tract 00 (disorder) infectious disease (disorder) Resolved 03/29/2014 Problem 04/04/2020 Data migrated from [employer] on 04/04/15. Medical Group,[facility] her Neuro,Puneet Ocampo OPID [place] RHINITIS Condition Inactiv 2014-08-23 2014-08-23 Memoria e [...] Date Date Clinician Iodinate Drug Active Swelling [facility] St d Allergy 5-26 [facility] 00:[facility]: [facility] 00 Center Iodine Propensi Active [place] And ty to 04-06 Method[facility] Iodide adverse 00:00: st Containi reaction 00 ng s to Products drug No Known No Known Active Memori a Medicati Medicati l on on Srini [place] Allergthang s s Family History Family Member Diagnosis Comments Start Date Stop Date Source Natural brother Cancer [place] M ethodist Natural father Alzheimer's disease H k[facility] Natural father Hypertension [place] [facility] Natural mother Cancer [place] Me thodist Natural mother Hypertension [place] [facility] Social History Social Habit Start Date Stop Date Quantity Comments Source Sex Assigned At [facility] Social History 2019-04-03 2019-04-03 [facility] Rad padilla 18:52:55 18:52:55 Alcohol intake 2017-12-19 2017-12-19 Current [facility] thodist 00:00:00 00:00:00 non-drinker of alcohol (finding) Smoking Status Start Date Stop Date Source Social History 2017-02-27 23:48:32 [facility] Medications Ordered Filled Start Stop Current Ordering Indication Dosage Frequency Signature Comments Components Source Medication Medication Date Date Medication? Clinician (SIG) Name Name albuterol 2020- No 2{puff} Inhale [address] [facility] [address] HFA 02-11- puffs by [facility] - (VENTOLIN 00:00: 23:59 mouth via Me dical HFA) 90 00 :00 inhaler Center mcg/actuati every 4 on inhaler (four) hours as needed for Wheezing. predniSONE 2019-2019- No 50mg QD Take [address] [facility] [...] tab, PO, l Tablet 14:52: Daily, 0 [place] [Abilify] 00 Refill(s) Diclofenac 2020-0 Yes 2 gm, TOP, M emoria Sodium 0.01 4-23 BID, 0 l MG/MG 14:28: Refill(s) [place] Topical Gel 00 [Voltaren] Repatha 2019-0 Yes 140 mg, Memoria 4-23 SUB-Q, l 14:28: qMonth, 0 [place] 00 Refill(s) meloxicam 2019-0 Yes 15 mg, PO, Me moria 4-23 Daily, 0 l 14:25: Refill(s) Methocarbam 2019-0 Yes 0 Memori a ol 4-23 Refill(s) l 14:25: [place] 00 NovoLog 2020-0 Yes 25 unit, Memori a 4-23 SUB-Q, l 14:24: TID-Before Srini 00 Meals, 0 Refill(s) pregabalin 2019- Yes 75 mg = 1 Me moria 75 MG Oral 3-18 cap, PO, l Capsule 19:33: BID, # 60 Alisia nn [Lyrica] 00 cap, 3 Refill(s), Pharmacy: [id number] repaglinide 2019-0 Yes 4 mg = 2 [...] Refill(s) Nitroglycer Yes See Memori a in 716 Instructio l 18:39: ns, 5 mg PO [...] # 12 tab, 0 Refill(s) 24 HR 2016-0 Yes 500 mg = 1 Memori a Ciprofloxac 6-12 tab, PO, l in 500 MG 01:00: Daily, X 5 He rmann Extended 00 day, # 5 Release tab, 0 Tablet Refill(s) [Cipro] Benadryl 2017-0 No 50 mg, Memoria 6-12 Route: l 00:30: IVP, ONCE, Dosing Weight 110.455, kg, Priority: STAT, Start date: 02/27/17 19:30:00 CDT, Stop date: 02/27/17 19:30:00 CDT Morphine 2017-0 No 4 mg, Memoria 6-11 Route: l 23:55: IVP, ONCE, Dosing Weight [...] ia 37.5-25 MG 2-05 l CAPS 00:00: [place] AMLODIPINE Yes one daily Me moria BESY-BENAZE 8-22 l PRIL HCL 00:00: [place] 5-40 MG 00 CAPS ATORVASTATI Yes one [...] TABS 5-01 daily l 00:00: LEXAPRO 20 2013-0 Yes 1 tablet Mem oria MG TABS 5-01 twice day l 00:00: ALPRAZOLAM 2013-0 Yes 1 tablet Mem oria 0.5 MG TABS 5-01 daily PRN l 00:00: LEXAPRO 20 2013-0 Yes 1 tablet Mem oria MG TABS 5-01 twice day l 00:00: ALPRAZOLAM 2013-0 Yes 1 tablet Mem oria 0.5 MG TABS 5-01 daily PRN l 00:00: DIOVAN HCT 2013-0 No one daily Me moria 160-12.5 MG 5-01 l TABS 00:00: Vital Signs Vital Name Observation Time Observation Value Comments Source Systolic blood 2020-02-12 19:00:00 124 mm[Hg] [facility] Diastolic blood 2020-02-12 19:00:00 68 mm[Hg] [facility] Heart rate 2020-02-12 19:00:00 98 /min [facility] Respiratory rate 2020-02-12 19:00:00 19 /min [facility] Oxygen saturation in 2020-02-12 19:00:00 96 /min [facility] Arterial blood by Medical Ce nter Pulse oximetry Body temperature 2020-02-12 15:57:00 36.89 Ayse [facility] Body weight Measured 2020-02-12 15:57:00 107.956 kg [facility] Systolic (mm Hg) 2020-02-07 14:50:00 Alexey Milligan Diastolic (mm Hg) 2020-02-07 14:50:00 Homer Milligan Heart Rate 2020-02-07 14:50:00 [facility] Respitory Rate 2020-02-07 14:50:00 Connie Jordan Height 2020-02-07 14:50:00 167.64 cm [facility] Weight 2020-02-07 14:50:00 [facility] BMI Calculated 2020-02-07 14:50:00 Memori al Srini Systolic (mm Hg) 2019-12-05 19:12:00 Alexey rial [place] Diastolic (mm Hg) 2019-12-05 19:12:00 Mem orial Srini Heart Rate 2019-12-05 19:12:00 [facility] [place] Respitory Rate 2019-12-05 19:12:00 Memori al [place] Height 2019-12-05 19:12:00 167.64 cm [facility] Srini Weight 2019-12-05 19:12:00 [facility] [place] BMI Calculated 2019-12-05 19:12:00 Memori al Srini Systolic (mm Hg) 2019-10-12 17:34:00 Alexey rial Srini Diastolic (mm Hg) 2019-10-12 17:34:00 Mem orial [place] Heart Rate 2019-10-12 17:34:00 [facility] Srini Height 2019-10-12 17:34:00 167.64 cm [facility] [place] Weight 2019-10-12 17:34:00 [facility] [place] BMI Calculated 2019-10-12 17:34:00 Memori al Srini Systolic (mm Hg) 2019-08-08 20:55:00 Alexey rial Srini Diastolic (mm Hg) 2019-08-08 20:55:00 Mem orial [place] Heart Rate 2019-08-08 20:55:00 [facility] [place] Respitory Rate 2019-08-08 20:55:00 Memori al [place] Height 2019-08-08 20:55:00 167.64 cm Memorial Srini Weight 2019-08-08 20:55:00 [facility] Srini BMI Calculated 2019-08-08 20:55:00 Memori al [place] Systolic (mm Hg) 2019-06-27 20:49:00 Alexey rial [place] Diastolic (mm Hg) 2019-06-27 20:49:00 Mem orial Srini Heart Rate 2019-06-27 20:49:00 [facility] Srini Respitory Rate 2019-06-27 20:49:00 Memori al [place] Height 2019-06-27 20:49:00 167.64 cm Memorial Srini Weight 2019-06-27 20:49:00 [facility] [place] BMI Calculated 2019-06-27 20:49:00 Memori al Srini Systolic (mm Hg) 2019-05-18 20:00:00 Alexey rial [place] Diastolic (mm Hg) 2019-05-18 20:00:00 Mem orial Srini Heart Rate 2019-05-18 20:00:00 [facility] Srini Respitory Rate 2019-05-18 20:00:00 Memori al [place] Height 2019-05-18 20:00:00 167.64 cm Memorial Srini Weight 2019-05-18 20:00:00 [facility] [place] BMI Calculated 2019-05-18 20:00:00 Memori al Srini Weight 2019-04-03 18:11:00 [facility] Srini BMI Calculated 2019-04-03 18:11:00 Memori al [place] Height 2019-04-03 18:11:00 167.64 cm [facility] Srini Heart Rate 2019-04-03 18:11:00 [facility] Srini Respitory Rate 2019-04-03 18:11:00 Memori al Srini Systolic (mm Hg) 2019-04-03 18:11:00 Alexey rial [place] Diastolic (mm Hg) 2019-04-03 18:11:00 Mem orial [place] Systolic (mm Hg) 2017-02-28 01:20:00 Alexey rial [place] Diastolic (mm Hg) 2017-02-28 01:20:00 Mem orial Srini Respitory Rate 2017-02-28 00:36:00 Memori al Srini Temperature Oral (F) 2017-02-28 00:36:00 98 F [facility] Srini Heart Rate 2017-02-28 00:36:00 [facility] Sr[facility] Systolic (mm Hg) 2017-02-28 00:36:00 Alexey rial Srini Diastolic (mm Hg) 2017-02-28 00:36:00 Mem orial [place] Heart Rate 2017-02-27 22:13:00 [facility] Srini Systolic (mm Hg) 2017-02-27 22:13:00 Alexey rial Srini Diastolic (mm Hg) 2017-02-27 22:13:00 Mem orial Srini Temperature Oral (F) 2017-02-27 22:13:00 98.6 F [facility] Srini Respitory Rate 2017-02-27 22:13:00 Memori al Srini Height 2017-02-27 22:13:00 167.64 cm [facility] Srini BMI Calculated 2017-02-27 22:13:00 Memori al Srini Weight 2017-02-27 22:13:00 [facility] [place] Height 2014-08-23 16:51:01 [facility] Srini Weight 2014-08-23 16:51:01 [facility] [place] Temperature Oral (F) 2014-08-23 16:51:01 98.1 F [facility] [place] Heart Rate 2014-08-23 16:51:01 [facility] [place] Systolic (mm Hg) 2014-08-23 16:51:01 Alexey rial Srini Diastolic (mm Hg) 2014-08-23 16:51:01 Mem orial Srini Weight 2014-05-10 15:26:33 [facility] [place] Temperature Oral (F) 2014-05-10 15:26:33 98.2 F [facility] [place] Heart Rate 2014-05-10 15:26:33 Memorial Srini Systolic (mm Hg) 2014-05-10 15:26:33 Alexey rial Srini Diastolic (mm Hg) 2014-05-10 15:26:33 Mem orial Srini Height 2014-05-10 15:26:33 [facility] Srini Weight 2014-03-29 15:53:52 [facility] Srini Temperature Oral (F) 2014-03-29 15:53:52 97.8 F [facility] [place] Heart Rate 2014-03-29 15:53:52 [facility] [place] Systolic (mm Hg) 2014-03-29 15:53:52 Alexey rial Srini Diastolic (mm Hg) 2014-03-29 15:53:52 Mem orial [place] Height 2014-01-17 14:43:32 Memorial Srini Weight 2014-01-17 14:43:32 [facility] [place] Temperature Oral (F) 2014-01-17 14:43:32 98.0 F [facility] [place] Heart Rate 2014-01-17 14:43:32 Memorial Srini Systolic (mm Hg) 2014-01-17 14:43:32 Alexey rial [place] Diastolic (mm Hg) 2014-01-17 14:43:32 Mem orial Srini Procedures Procedure Date / Time Performed Performing Clinician Sourc e XR CHEST 2 VIEWS 2020-02-12 17:30:00 Sean Kern [facility] SARS-COV2/RT-PCR ([facility] & 2020-02-12 17:15:00 [facility]ern [facility] B-TYPE NATRIURETIC 2020-02-12 17:15:[address] [facility] FACTOR (BNP) [facility] BASIC METABOLIC PANEL 2020-02-12 17:15:[address] [facility] (7) [facility] TROPONIN I 2020-02-12 17:15:00 Isaac Sean Butlerbc [facility] CBC W/PLT COUNT & AUTO 2020-02-12 17:15:00 Isaac Sean Butlerbc [facility] ECG 12-LEAD 2020-02-12 16:18:19 Unknown, Hl7 Doctor [facility] smoking/tobacco 2014-01-17 14:43:32 Edward ley cessation, patient education and counseling mammogram 2013-04-19 15:45:41 Edward ley vaginal Pap smear 2013-02-17 14:53:37 [facility] results Plan of Care Planned Activity Planned Date Details Comments Source Future Scheduled 2020-06-19 INFLUENZA VACCINE [place] [facility] 00:00:00 [code = INFLUENZA VACCINE] Future Scheduled 2018 BREAST CANCER [facility] thodist Test 00:00:00 SCREENING [code = BREAST CANCER SCREENING] Future Scheduled 2018 COLONOSCOPY SCREENING [facility] Test 00:00:00 [code = COLONOSCOPY SCREENING] Future Scheduled 2018 SHINGLES VACCINES [place] [facility] Test 00:00:00 (#1) [code = SHINGLES VACCINES (#1)] Future Scheduled 1989 Screening for [facility] thodist Test 00:00:00 malignant neoplasm of cervix (procedure) [code = 802087188] Encounters Start End Encounter Admission Attending Care Care Encounter Source Date/Time Date/Time Type Type Clinicians Facility Department ID 2020-04-02 2020-04-02 Outpatient DASHA Mac [id number] 13:15:00 13:15:00 Ruy 05 Valentín 2020-02-07 2020-02-07 Outpatient DASHA Mac [id number] 09:30:00 23:59:59 Ruy 07 Valentín 2020-01-10 2020-01-10 Outpatient DASHA Mac [id number] 09:15:00 23:59:59 Ruy 06 Valentín 2019-12-05 2019-12-05 Outpatient Estefania MISCHER MHMISCHER [id number] 13:45:00 23:59:59 Ruy 04 Valentín 2019-10-30 2019-10-30 Outpatient Therese [id number] 08:26:00 23:59:00 Nadim Jorge [id number] 2019-10-13 2019-10-14 Outpatient MG MG [id number] 13:24:03 13:24:03 2019-10-12 2019-10-12 Outpatient Therese [facility] [id number] 11:00:00 23:59:59 Nadim Jorge 00 2019-08-08 2019-08-08 Outpatient Estefania MISCHER MHMISCHER [id number] 14:45:00 23:59:59 Ruy 03 Valentín 2019-06-27 2019-06-27 Outpatient Estefania MISCHER MHMISCHER [id number] 15:45:00 23:59:59 Ruy Valentín 2019-05-18 2019-05-18 Outpatient Estefania MISCHER MHMISCHER [id number] 14:30:00 23:59:59 Ruy Valentín 2019-04-03 2019-04-03 Outpatient Estefania MISCHER MHMISCHER [id number] 13:00:00 23:59:59 Ruy 00 Valentín 2017-02-27 2017-02-27 Outpatient Wenceslao, MHPL MHPL [id number] 17:07:00 20:28:00 Spike Jules Results Test Description Test Time Test Comments Results Result Sour e Comments ECG 12 lead 2020-01-19 Interface, External Ris [facility] - 02/13/2020 6:29 Ashley es - 06:29:35 AM CDTVentricular Rate Me dical 94 BPMAtrial Rate 94 Cent er BPMP-R Interval 124 msQRS Duration 72 msQ-T Interval 378 msQTC Calculation(Bazett) 472 msP [place] 5 degreesR [place] -1 degreesT [place] 23 degreesNormal sinus rhythmNormal ECGNo previous ECGs availableConfirmed by MD CB, AGUILA Colin ([id number]) on 02/13/2020 6:29:32 AM SARS-CoV2/RT-PCR (Symptomatic ONLY) 2020-02-12 19:30:00 Test Item Value Reference Range Interpretation Comme nts SARS-COV2/RT-PCR (test code = Not Detected Not Detected, Negative 24975-0) SARS-COV-2 PERFORMING LAB [facility] (test code = 72792-8) MARGARITA (test code = MARGARITA) Negative results [...] of the Act. Fact Sheet for Healthcare Providers:https://www.VC VISION/Documents/Xpert%20Xpress %20SARS%20CoV-2/Fact%20Sheets /302-0932%84OLCK-MLK-0%20HEAL THCARE%20PROVIDERS%20FACT%20S HEET.pdf Fact Sheet for Healthcare Patients:https://www.Pencil You In/Documents/Xpert%20Xpress% 20SARS%20CoV-2/Fact%20Sheets/ 3023801%52AOTQ-AJI-2%20PATIE NT%20FACT%20SHEET.pdf Performing Laboratory:[place] [address] [place] [address] [facility] & REF LABS)2020-02-12 19:30:00 Test Item Value Reference Range Interpretation Comments SARS-COV2/RT-PCR (test Not Detected Not Detected, Negative code = 1406054) SARS-COV-2 PERFORMING LAB [facility] (test code = 1781928) Negative results do not preclude SARS-CoV-2 infection [...] of the Act.Fact Sheet for Healthcare Pro viders:https://www.twtMob.Death by Party/Documents/Xpert%20Xpress%20SARS%20CoV-2/Fact%20Sh eets/3023802%19ATYI-XZS-7%20HEALTHCARE%20PROVIDERS%20FACT%20SHEET.pdfFact Sheet for Healthcare Patients:https://www.Top Hand Rodeo Tour id.Death by Party/Documents/Xpert%20Xpress%20SARS%20CoV-2/Fact%20Sheets/3023801%20SARS-COV -2%20PATIENT%20FACT%20SHEET.pdfPerforming Laboratory:[facility] [facility], [place] [address]Nbboeycb [id number] 18:17:00 Test Item Value Reference Range Interpretation Comments Troponin I (test code = <0.01 0-0.03 48684-7) MARGARITA (test code = MARGARITA) Troponin I [...] E Lab Interpretation (test Normal code = 20160-3) [facility] [id number] 18:17:00 Test Item Value Reference Range Interpretation [...] failure, acidosis, acute neurological disease, and persistent tachyarrhythmia.[employer] EB-type Natriuretic Factor (BNP)2020-02-12 18:10:00 Test Item Value Reference Range Interpretation Comments BNP (test code = 37962-8) 18 pg/mL 0-100 MARGARITA (test code = MARGARITA) [employer] ID [employer] E Lab Interpretation (test Normal code = 96462-8) [facility] NATRIURET[facility] FACTOR (BNP)2020-02-12 18:10:00 Test Item Value Reference Range Interpretation Comments B-TYPE NATRIURETIC PEPTIDE (BEAKER) 18 pg/mL 0-100 (test code = 700) [employer] EBasic Metabolic [id number] 18:07:00 Test Item Value Reference Range Interpretation Comments Sodium (test code = 139 meq/L 567-335 4256-2) Potassium (test code 3.8 meq/L 3.5-5.1 = 2823-3) Chloride (test code = 106 meq/L 98-107 2075-0) CO2 (test code = 25 meq/L 22-29 8-9) BUN (test code = 10 mg/dL 7-21 3094-0) Creatinine (test code 0.70 mg/dL 0.57-1.25 = 2160-0) Glucose (test code = 184 mg/dL 70-105 H 2345-7) Calcium (test code = 8.8 mg/dL 8.4-10.2 31345-1) EGFR (test code = 107 mL/min/1.73 sq m INSUFF ICIENT 28407-9) CLINICAL DATA T O CALCULATE ESTIMATED GFR. MARGARITA (test code = MARGARITA) [employer] KRISTINA Hollingsworth Lab Interpretation Abnormal (test code = 99739-8) [facility] METABOLIC [id number] 18:07:00 Test Item Value Reference Range Interpretation [...] DATA TO CALCU LATE m ESTIMATED GFR. [employer] KRISTINA CHRIS ERAD, CHEST, 2 [id number] 17:35:00Reason for exam:->WHEEZINGFINAL REPORT TECHNIQUE: Frontal and [...] MDReport Verified Date/Time: 02/12/2020 17:35:52 Reading Location: [facility] C0[facility] Transitional Reading Room XR chest 2 [id number] 17:35:00Interface, External Ris In - 02/12/2020 5:38 [...] Grigsbyeport Verified Date/Time: 02/12/2020 17:35:52 Reading Location: [address] Transitional Reading Room Electronicallysigned by: DARSHANA GRIGSBY MD on 02/12/2020 05:35 [facility] CBC with platelet count + automated [id number] 17:34:00 Test Item Value Reference Range Interpretation [...] 450 K/CU MM MPV (test code = 55483-1) 10.8 fL 9.4-12.3 nRBC (test code = [...] 2801) Lab Interpretation (test code = Abnormal 81605-4) [facility] W/PLT COUNT & AUTO [id number] 17:34:00 Test Item Value Reference Range Interpretation [...] PERCENT (BEAKER) (test code = 2801) CHEM [id number] 22:38:0095[facility] [id number] 22:38:0013 [facility]annCHE[facility] [id number] 22:38:0010[facility]annCHEM PANEL 2017-02-27 22:38:000.74[facility]annCHEM [id number] 22:38:0028[facility]annCHEM [id number] 22:38:003.6[facility]ann[facility] [id number] 22:38:0081[facility]annCHEM [id number] 22:38:49827Pxeoskdb HermannCHEM [id number] 22:38:000.3[facility]annCHEM [id number] 22:38:52801 [facility] IGYPJ9495-42-97 22:38:007.9[facility] HermannCHEM PANEL 2017-02-27 22:38:008.9[facility]annCHEM XMUHH0178-08-88 22:38:86584Lrpmxvuh HermannCHEM PQCIY9128-26-85 22:38:003.9[facility] HermannCHEM BVUSZ7036-81-77 22:38:0029[facility] HermannCHEM HDUEG0592-01-57 22:38:000.8[facility]annCHEM KUPKU4386-44-36 22:38:0010.9[facility]annCHEM KZLQZ0016-56-35 22:38:004.3 [facility]annCHE[facility] VSJCD7878-58-01 22:38:0014[facility] HermannCHEM PANEL 2017-02-27 22:38:75873Ooiskzvw TklypmqKLJCTAZTDXPKR6715-42-15 22:38:001[facility] HthyhhlLHTFZMLWNN6508-74-95 22:38:0064.7[facility] QhzqwvePHVNTGOYOU1164-42-07 22:38:002.9[facility] QibvhmqMGYCXAEOYZ0130-03-55 22:38:000.1[facility] IPMMVNDAGS3939-82-74 22:38:000.4[facility] NrwojmaFWDDUYKKAZ5418-89-64 22:38:000.9 [facility] WynrlmsORZZKFZCFM0571-54-12 22:38:007.8[facility] HermannHEMATOLOGY 2017-02-27 22:38:003.2[facility] ZifrygjSEWIMELZWG4601-01-05 22:38:007.4[facility] PeqhyynRZXUSXARVQ2228-44-16 22:38:0024.1[facility] OuppzrxESBPRYEHCY5570-36-53 22:38:000.6[facility] MnqtjsdJBGCHLPZAN3904-09-21 22:38:0040.4[facility] MDMBLXKKPN1690-35-47 22:38:0013.9[facility] GidckwwCTCLHYZOBL5739-95-99 22:38:00 4.61[facility] UdhxzuyXIJOIQWNLU2389-04-20 22:38:0012.0[facility] HermannHEMATOLOGY 2017-02-27 22:38:008.1[facility] KukddnmPCBCZHKKZW7063-15-37 22:38:0013.9[facility] PiarpekLVGTRKEWLU6716-45-25 22:38:80204Dopixjyw SvomevjZYKCPRDUUF4945-16-12 22:38:0034.5[facility] HwfoxejWXWVUZDCOE9747-53-62 22:38:00 Test Item Value Reference Range Interpretation Comments MCH (test code = MCH) 30.2 pg 27.0-31.0 [facility] BvgsudpGWHVEMSUPT5971-09-05 22:38:0087.5[facility]annURINE AND STOOL 2017-02-27 22:29:00See Note (02/27/17 5:29 PM)[facility] STOOL 2017-02-27 22:29:00Moderate *ABN*(02/27/17 5:29 PM)[facility] LPRET8520-94-70 22:29:004.0[facility] AND KCFFY8971-54-04 22:29:00See Note 1(02/27/17 5:29 PM)[facility] AXVJC3627-69-94 22:29:00 Negative *NA*(02/27/17 5:29 PM)[facility] MHNVS1681-59-01 22:29:00 See Note (02/27/17 5:29 PM)[facility] MBOGU4858-12-05 22:29:00 Large *ABN*(02/27/17 5:29 PM)[facility] DXPGP5987-76-76 22:29:00 Slight Cloudy (02/27/17 5:29 PM)[facility] JGNZJ1906-40-87 22:29:00>=1.030 *ABN*(02/27/17 5:29 PM)[facility] STOOL 2017-02-27 22:29:00 Test Item Value Reference Range Interpretation Comments UA pH (test code = UA pH) 5.5 1 5.0-8.0 [facility] QBHEE8225-18-38 22:29:00Orange *ABN*(02/27/17 5:29 PM) [facility] OQMJ6815-23-92 22:29:00Negative (02/27/17 5:29 PM)[facility] JybahucXcueyqxlw6377-28-86 16:20:005.5[facility] TufxwlhKgqmrcqvy0059-54-17 16:20:03624Sbygmzoz ZrvrycmZgnwmokhd9976-31-36 16:20:18706Zwfszznz Srini Ggmbkkmod5446-64-54 16:20:0036[facility] TfdsmksGehqclrqp3191-61-13 16:20:0090 [facility] EbpnnczNkbefnhap0040-27-83 15:30:90603Nqgdawrr HermannChemistry 2014-01-17 15:30:66527Xlpudqqx ZbuhelyPgmsqnjgj6106-63-48 15:30:0031[facility] WkzbwkgUyxyxycfv6869-28-58 15:30:00See Note mg/dLMemorial HermannChemistry 2014-01-17 15:30:51058 MEQ/LMemorial HtxrrpbSthikqqcy4584-30-24 15:30:004.6 MEQ/LMemorial LczbnujZjskkhgrg6471-46-93 15:30:000.7[facility] HermannChemistry 2014-01-17 15:30:0015[facility] VqiclbmHehbmoupb8981-48-86 15:30:00 Test Item Value Reference Range Interpretation Comments BUN/CREAT (test code = BUN/CREAT) 21 1 -25 [facility] NkuqfryDcepoycnd1346-79-98 15:30:004.3[facility] HermannChemistry 2014-01-17 15:30:009.0[facility] CnujiztRijhvpuqr3258-36-67 15:30:0030[facility] RbxyaqgNiovpprnb3369-19-08 15:30:0012[facility] WsdmqkuQogmdxyet5433-15-85 15:30:0073[facility] JmdcacsNnbxtoaki8013-77-21 15:30:001.680[facility] Egtxgkxmx7486-00-11 15:30:32288Ltdacmjj WmwonyaAnsikwzru2442-79-66 15:30:73769 Memorial RdixfinAytaqndrs6829-67-89 15:30:0031[facility] HermannChemistry 2014-01-17 15:30:00See Note mg/dLMemorial QgyruaoQbigzwrtz6369-08-28 15:30:45892 MEQ/LMemorial ZodgpctIbmcqhlcg7651-19-42 15:30:004.6 MEQ/LMemorial Rsini Iymwagibe7383-49-59 15:30:000.7[facility] TpybugyWqymagrim4372-64-36 15:30:0015 [facility] MwhmbugXwetczinz0959-13-44 15:30:00 Test Item Value Reference Range Interpretation Comments BUN/CREAT (test code = BUN/CREAT) 21 1 6-25 [facility] YsdtrsyVzsijnixj7728-04-51 15:30:004.3[facility] HermannChemistry 2014-01-17 15:30:009.0[facility] DttpffvPfvvihqaj1377-06-43 15:30:0030[facility] IemjwnxTgbnwszua8293-06-30 15:30:0012Mem[facility] YluxukjQhlaewmsv5534-82-53 15:30:0073[facility] GchcpgyFvxrammmd5755-41-74 15:30:001.680[facility] Yqjhqbbowb0487-61-00 15:30:0014.9[facility] WmzzlliYjzidbrnrw2944-81-85 15:30:00 43.8[facility] DasdajmDnufzsftrw1569-99-12 15:30:91665 K/CMMMemorial Saint [facility]s Ypcpkzzsst2134-02-75 15:30:0014.9[facility] UejtrsaXrgmlmoxfn5319-26-28 15:30:00 43.8[facility] VhikzmnBasqtbcllt2949-28-52 15:30:23964 K/CMMMemorial HermannOb/Nail Making Machine Setter 2013-02-17 14:53:37CompleteMemorial HermannOb/Cxs7802-58-91 14:53:37Complete Memorial AghjejvYaowgvuql7598-91-90 14:53:37CompleteMemorial HermannPathology 2013-02-17 14:53:37CompleteMemorial Saint Pauls
--- NOTE | 2020-05-23 15:10 | EDPHYS ---
Physician Documentation [facility] Name: Kelley Ordaz Age: 49 yrs Sex: Female : 1970 Arrival Date: 05/23/2020 Time: 14:26 Bed 7 Private MD: ALICE Physician Navneet Taylor HPI: 05/23 15:12 This 49 yrs old Female presents to ER via Ambulatory with complaints of kb Abscess. 15:12 The patient presents with an abscess of the groin. Description: draining, erythematous, kb swollen. Onset: The symptoms/episode began/occurred 2 day(s) ago. Possible cause(s): unknown. Associated signs and symptoms: Pertinent positives: drainage, erythema, swelling, Pertinent negatives: fever. Modifying factors: the symptoms are alleviated by nothing, the symptoms are aggravated by nothing. Severity of symptoms: At their worst the symptoms were moderate, in the emergency department the symptoms are unchanged. The patient has experienced similar episodes in the past, a few times. The patient has not recently seen a physician. Pt reports abscess that started 2 days ago. States it opened up and started draining today, pt has history of MRSA. Historical: - Allergies: 14:35 Ciprofloxacin; sv 14:52 Iodine (Respiratory distress); IV iodine contrast; tw2 - Home Meds: 14:38 on chemotherapy [Active]; sv - PMHx: 14:35 Diverticulitis; Hypertension; Myocardial infarction; CAD; Depression; High Cholesterol; sv Diabetes - IDDM; pancreatic cancer; Pancreatitis; - PSHx: 14:35 Tubal ligation; Heart stents; Carpal Tunnel Repair; Cataracts; sv - Immunization history:: Adult Immunizations. - Social history:: Smoking status: . ROS: 15:11 Constitutional: Negative for fever, chills, and weight loss, Cardiovascular: Negative kb for chest pain, palpitations, and edema, Respiratory: Negative for shortness of breath, cough, wheezing, and pleuritic chest pain, Abdomen/GI: Negative for abdominal pain, nausea, vomiting, diarrhea, and constipation, Back: Negative for injury and pain, MS/Extremity: Negative for injury and deformity, Neuro: Negative for headache, weakness, numbness, tingling, and seizure. 15:11 Skin: Positive for abscess, of the groin. Exam: 15:11 Constitutional: This is a well developed, well nourished patient who is awake, alert, kb and in no acute distress. Head/Face: Normocephalic, atraumatic. Chest/axilla: Normal chest wall appearance and motion. Nontender with no deformity. No lesions are appreciated. Cardiovascular: Regular rate and rhythm with a normal S1 and S2. No gallops, murmurs, or rubs. Normal PMI, no JVD. No pulse deficits. Respiratory: Lungs have equal breath sounds bilaterally, clear to auscultation and percussion. No rales, rhonchi or wheezes noted. No increased work of breathing, no retractions or nasal flaring. Abdomen/GI: Soft, non-tender, with normal bowel sounds. No distension or tympany. No guarding or rebound. No evidence of tenderness throughout. MS/ Extremity: Pulses equal, no cyanosis. Neurovascular intact. Full, normal range of motion. Neuro: Awake and alert, GCS 15, oriented to person, place, time, and situation. Cranial nerves II-XII grossly intact. Motor strength 5/5 in all extremities. Sensory grossly intact. Cerebellar exam normal. Normal gait. 15:11 Skin: abscess, that is moderate sized, of the groin, with drainage, with induration, with surrounding cellulitis. Vital Signs: 14:35 BP 141 / 80; Pulse 110; Resp 20; Temp 99.2(O); Pulse Ox 98% ; Weight 96.62 kg; Height 5 sv ft. 6 in. (167.64 cm); 14:35 Body Mass Index 34.38 (96.62 kg, 167.64 cm) sv MDM: 14:45 Patient medically screened. kb 15:02 Data reviewed: vital signs, nurses notes. Data interpreted: Pulse oximetry: on room air kb is 98 %. Interpretation: normal. Counseling: I had a detailed discussion with the patient and/or guardian regarding: the historical points, exam findings, and any diagnostic results supporting the discharge/admit diagnosis, the need for outpatient follow up, a family practitioner, to return to the emergency department if symptoms worsen or persist or if there are any questions or concerns that arise at home. 15:16 ED course: Abscess open and draining. Able to express a small amount. Pt educated to kb use warm, moist compresses a few times per day, take antibiotics as prescribed and follow up with general surgery.. Administered Medications: 15:40 Drug: Bactrim (160 mg-800 mg (DS) 1 tablet Route: PO; ss 15:40 Drug: KeFLEX 500 mg Route: PO; ss Disposition: 05/24 11:11 Co-signature as Attending Physician, Navneet Taylor MD I agree with the assessment and ted plan of care. Disposition: 05/23/20 15:09 Discharged to Home. Impression: Cutaneous abscess of groin. - Condition is Stable. - Discharge Instructions: Skin Abscess, Kkyn-ic-Zmhv. - Prescriptions for Keflex 500 mg Oral Capsule - take 1 capsule by ORAL route every 8 hours for 10 days; 30 capsule. Bactrim DS 800- 160 mg Oral Tablet - take 1 tablet by ORAL route every 12 hours for 10 days; 20 tablet. - Medication Reconciliation Form, Thank You Letter, Antibiotic Education, Prescription Opioid Use form. - Follow up: Emergency Department; When: As needed; Reason: Worsening of condition. Follow up: Private Physician; When: 2 - 3 days; Reason: Recheck today's complaints, Continuance of care, Re-evaluation by your physician. Signatures: Dispatcher [employer] EDNM Jerica Jiang, RN SECURITY-C SERGIO-Mayra Conroy RN RN sv Anderson, Corey, MD MD cha Smirch, Shelby, RN RN ss Wise, Tara, RN RN tw2 Corrections: (The following items were deleted from the chart) 05/23 14:53 14:35 Allergies: Iodine (Respiratory distress); tw2 15:41 15:09 05/23/2020 15:09 Discharged to Home. Impression: Cutaneous abscess of groin. ss Condition is Stable. Forms are Medication Reconciliation Form, Thank You Letter, Antibiotic Education, Prescription Opioid Use. Follow up: Emergency Department; When: As needed; Reason: Worsening of condition. Follow up: Private Physician; When: 2 - 3 days; Reason: Recheck today's complaints, Continuance of care, Re-evaluation by your physician. kb
--- NOTE | 2020-05-23 15:10 | ER ---
Nurse's Notes [facility] Name: Kelley Ordaz Age: 49 yrs Sex: Female : 1970 Arrival Date: 05/23/2020 Time: 14:26 Bed 7 Private MD: Diagnosis: Cutaneous abscess of groin Presentation: 05/23 14:33 Chief complaint: Patient states: left groin abscess started 3 days ago and stated that sv it opened up on its own today with drainage. Coronavirus screen: Client denies travel out of the [place] in the last 14 days. At this time, the client does not indicate any symptoms associated with coronavirus-19. Ebola Screen: No symptoms or risks identified at this time. Risk Assessment: Do you want to hurt yourself or someone else? Patient reports no desire to harm self or others. Onset of symptoms was May 20, 2020. 14:33 Method Of Arrival: Ambulatory sv 14:33 Acuity: DEJUAN 3 sv 14:35 Initial Sepsis Screen: Does the patient meet any 2 criteria? HR > 90 bpm. No. Patient's sv initial sepsis screen is negative. Does the patient have a suspected source of infection? Yes: Skin breakdown/wound. Historical: - Allergies: 14:35 Ciprofloxacin; sv 14:52 Iodine (Respiratory distress); IV iodine contrast; tw2 - Home Meds: 14:38 on chemotherapy [Active]; sv - PMHx: 14:35 Diverticulitis; Hypertension; Myocardial infarction; CAD; Depression; High Cholesterol; sv Diabetes - IDDM; pancreatic cancer; Pancreatitis; - PSHx: 14:35 Tubal ligation; Heart stents; Carpal Tunnel Repair; Cataracts; sv - Immunization history:: Adult Immunizations. - Social history:: Smoking status: . Screenin:47 Abuse screen: Denies threats or abuse. Nutritional screening: No deficits noted. tw2 Tuberculosis screening: No symptoms or risk factors identified. Fall Risk None identified. Vital Signs: 14:35 BP 141 / 80; Pulse 110; Resp 20; Temp 99.2(O); Pulse Ox 98% ; Weight 96.62 kg; Height 5 sv ft. 6 in. (167.64 cm); 14:35 Body Mass Index 34.38 (96.62 kg, 167.64 cm) sv ED Course: 14: Patient arrived in ED. ag5 14:33 Arm band placed on. sv 14:34 Triage completed. sv 14:39 Placed in gown. Bed in low position. Pulse ox on. NIBP on. Warm blanket given. tw2 14:44 Jerica Jiang FNP-C is [facility]. kb 14:44 Navneet Taylor MD is Attending Physician. kb 14:46 Nancy Spann, RN is Primary Nurse. tw2 15:40 No provider procedures requiring assistance completed. Patient did not have IV access ss during this emergency room visit. Administered Medications: 15:40 Drug: Bactrim (160 mg-800 mg (DS) 1 tablet Route: PO; ss 15:40 Drug: KeFLEX 500 mg Route: PO; ss Outcome: 15:09 Discharge ordered by . kb 15:40 Discharged to home ambulatory. ss 15:40 Condition: good 15:40 Discharge instructions given to patient, Instructed on discharge instructions, follow up and referral plans. medication usage, Demonstrated understanding of instructions, follow-up care, medications, Prescriptions given X 2. 15:41 Patient left the ED. ss Signatures: Jerica Jiang FNP-C FNP-Mayra Conroy RN RN Shantal Le RN RN Nancy Spann RN RN tw2 Lorenza Blake ag5 Corrections: (The following items were deleted from the chart) 14:47 14:33 Chief complaint: Patient states: left groing abscess started 3 days ago and sv stated that it opened up on its own today with drainage. sv 14:53 14:35 Allergies: Iodine (Respiratory distress); sv tw2
[2020-05-23] MEDS ORDERED: CEPHALEXIN 250 MG CAP ONE (15:47)
[2020-05-23] MEDS ORDERED: SMZ./TMP. 800/160 MG TABLET ONE (15:48)
[2020-05-24 22:08] VITALS: BP 141/80; TEMP 99.2; O2SAT 98
== END 2020-05-23 15:41 | disposition home or self-care (01) ==
LOC: ER 14:23
DX: L02.214 Cutaneous abscess of groin (principal); I10 Essential (primary) hypertension; Z95.818 Presence of other cardiac implants and grafts; Z85.07 Personal history of malignant neoplasm of pancreas; Z88.1 Allergy status to other antibiotic agents; Z88.8 Allergy status to other drugs, medicaments and biological substances
CPT/HCPCS: 99283

== ENCOUNTER 2020-06-18 02:12 | Emergency (ER) | payer BC ==
--- OUTSIDE RECORDS SUMMARY | 2020-06-18 02:15 | XMS REPORT | Clinical Summary ---
:1970 Author Organization [facility] Address [address] [place] [address] Care Team Providers Name Role Phone Onur [...] Not on file Last Filed Vital Signs Not on file Plan of Treatment Health Maintenance Due Date Last Done Comments CERVICAL CANCER SCREENING 1989 BREAST CANCER SCREENING 2018 COLONOSCOPY SCREENING 2018 SHINGLES VACCINES (#1) 2018 INFLUENZA VACCINE 04/19/2020 Results Not on fileafter 06/18/2019 Advance Directives For more information, please contact: [phone] Type Date Recorded Patient Ip Litigation Associate Explanati on Advance Directives, Living Will and Medical Power of Fruit Checker
--- OUTSIDE RECORDS SUMMARY | 2020-06-18 02:15 | XMS REPORT | Clinical Summary ---
:1970 Author Organization [facility] Address [address] [place] [address] Care Team Providers Name Role Phone Pcp, [...] Only General Internal Medicine 02/12/2020 Travel after 06/18/2019 Social History Tobacco Use Types Packs/Day Years [...] 378 ms QTC Calculation(Bazett) 472 ms P [place] 5 degrees R [place] -1 degrees T [place] 23 degrees Normal sinus rhythm Normal ECG No previous ECGs available ECG 12-LEAD STAT 02/12/2020 4:18 PM CDT Resu lts for this procedure are in the results section . after 06/18/2019 Results XR chest 2 views (02/12/2020 5:30 PM CDT) Specimen Narrative Performed At FINAL REPORT [facility] TECHNIQUE: Frontal and lateral chest rad [...] MD Report Verified Date/Time:02/12/2020 17:35:52 Reading Location: [address] [facility] Procedure Note Interface, External Ris [...] Verified Date/Time: 02/12/2020 1 7:35:52 Reading Location: [address] [facility] Performing Organization Address City/State/Zipcode Phone Number [facility] SARS-CoV2/RT-PCR (Symptomatic ONLY) (02/12/2020 5:15 PM CDT) SARS-COV2/RT-PCR Not Detected Not Detected, Negative [facility] SARS-COV-2 PERFORMING LAB [facility] Specimen Other Narrative Performed At Negative results do not preclude SARS-CoV-2 [facility] infection and should not be used [...] the Act. Fact Sheet for Healthcare Providers: https://www.[employer]/Documents/Xpert%20Xpre ss%20SARS%20CoV-2/Fact%20Sheets/3023802%20SAR S-COV-2%20HEALTHCARE%20PROVIDERS%20FACT%20SHEE T.pdf Fact Sheet for Healthcare Patients: https://www.[employer]/Documents/Xpert%20Xpre ss%20SARS%20CoV-2/Fact%20Sheets/3023801%20SAR S-COV-2%20PATIENT%20FACT%20SHEET.pdf Performing Laboratory: [address] [place] [address] Performing Organization Address City/State/Zipcode Phone Number [address] [address] CENTER CBC with platelet count + automated diff (02/12/2020 5:15 PM CDT) WBC 19.8 (H) 3.5 - 10.5 K/L [facility] RBC 5.14 3.93 - 5.22 M/L [facility] Hemoglobin 14.5 11.2 - 15.7 GM/DL [facility] Hematocrit 45.1 (H) 34.1 - 44.9 % [facility] MCV 87.7 79.4 - 94.[address] [facility] MCH 28.2 25.6 - 32.[address] [facility] MCHC 32.2 32.2 - 35.5 GM/DL [facility] RDW 12.6 11.7 - 14.4 % [facility] Platelets 217 150 - 450 K/CU MM [facility] MPV 10.8 9.4 - 12.[address] [facility] nRBC 0 0 - 0 /[address] [facility] % Neutros 91 % [facility] % Lymphs 5 % [facility] % Monos 3 % [facility] % Eos 0 % [facility] % Baso 0 % [facility] # Neutros 18.10 (H) 1.56 - 6.13 K/L [facility] # Lymphs 0.90 (L) 1.18 - 3.74 K/L [facility] # Monos 0.62 (H) 0.24 - 0.36 K/L [facility] # Eos 0.02 (L) 0.04 - 0.36 K/L [facility] # Baso 0.05 0.01 - 0.08 K/L [facility] Immature 1 0 - 1 % [facility] Granulocytes-Relative [facility] Specimen Blood Performing Organization Address [facility] Phone Number [address] [address] CENTER Troponin I (02/12/2020 5:15 PM CDT) Troponin I <0.01 0.00 - 0.03 ng/mL [facility] Specimen Blood Narrative Performed At Troponin I (TnI) levels must be interpreted [facility] in the context of the presenting [...] acidosis, acute neurological disease, and persistent tachyarrhythmia. Electric Meter Reader ID - ARIES E Performing Organization Address City/[facility] Phone Number [address] [address] CENTER B-type Natriuretic Factor (BNP) (02/12/2020 5:15 PM CDT) BNP 18 0 - 100 pg/mL [facility] Specimen Blood Narrative Performed At Electric Meter Reader ID - ARIES E [facility] Performing Organization Address City/[facility]/Zipcode Phone Number [address] [address] CENTER Basic Metabolic Panel (02/12/2020 5:15 PM CDT) Sodium 139 136 - 145 meq/L [facility] Potassium 3.8 3.5 - 5.1 meq/L [facility] Chloride 106 98 - 107 meq/L [facility] CO2 25 22 - 29 meq/L [facility] BUN 10 7 - 21 mg/dL [facility] Creatinine 0.70 0.57 - 1.25 mg/dL [facility] Glucose 184 (H) 70 - 105 mg/dL [facility] Calcium 8.8 8.4 - 10.2 mg/dL [facility] H [facility] EGFR 107Comment: INSUFFICIENT mL/min/1.73 sq m [facility] DATA TO CALCULATE [facility] ESTIMATED GFR. Specimen Blood Narrative Performed At Electric Meter Reader ID - ARIES E [facility] Performing Organization Address City/State/Zipcode Phone Number [facility] [address] [place] [address] CENTER ECG 12 lead (02/12/2020 4:18 PM CDT) Specimen Narrative Performed At Ventricular Rate 94 BPM GE MUSE Atrial Rate 94 BPM P-R Interval 124 ms QRS Duration 72 ms Q-T Interval 378 ms QTC Calculation(Bazett) 472 ms P [place] 5 degrees R [place] -1 degrees T [place] 23 degrees Normal sinus rhythm Normal ECG No previous ECGs available Confirmed by MD VIVAR JOSEPH P ([id number]) on 0 6:29:32 AM Procedure Note Interface, External Ris In - 02/13/2020 6:29 AM CDT Ventricular Rate 94 BPM Atrial Rate 94 BPM P-R Interval 124 ms QRS Duration 72 ms Q-T Interval 378 ms QTC Calculation(Bazett) 472 ms P [place] 5 degrees R [place] -1 degrees T [place] 23 degrees Normal sinus rhythm Normal ECG No previous ECGs available Confirmed by MD VIVAR JOSEPH P ([id number]) on 02/13/2020 6:29:32 AM Performing Organization Address City/State/Zipcode Phone Number [employer] after 06/18/2019 Insurance Payer Benefit Plan / Group Subscriber ID Type Phone A ddress CDC REVIEW CDC REVIEW xxxxxxxx [address] [place], [place] [phone]
--- OUTSIDE RECORDS SUMMARY | 2020-06-18 02:17 | XMS REPORT | Summary of Care ---
:1970 Author Organization [facility] Address [address] [place] [address]- phone Encounter HQ Varun_clemencia(FIN) [id number] Date(s): 05/23/20 - 05/23/20 [facility] [address] [place] [address]- [phone] Attending Physician: Ruy Mac MD Referring Physician: [...] of knee6 08/23/14 Resolved Temporomandibular 08/23/14 Resolved aropm-lwgt-knwgleouhaa syndrome7 Urinary tract infectious disease8 03/29/14 Resolved [...]
--- OUTSIDE RECORDS SUMMARY | 2020-06-18 02:17 | XMS REPORT | Continuity of Care Document ---
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 Neuro, [facility] [place] Temporomandibular Resolved Problem 05/25/2020 Data H [id number] 014 migrate d Medical syndrome (disorder) from [facility],Mis Centricity jamee on 02/18/15. Neuro, [facility] [place] POLYDIPSIA Active Condition 08/23/2014 014 [facility] Excessive thirst Resolved Problem 05/25/2020 Data (finding) 014 migrated Medical from [facility],Mis Centricity jamee on 02/18/15. Neuro, [facility] [place] RHINITIS Inactive Condition 08/23/2014 014 [facility] UTI Inactive Condition 08/23/2014 014 [facility] Urinary tract Resolved Problem 05/25/2020 Data infectious disease 014 migrated M edical (disorder) from [facility] Cent[facility] jamee on 04/04/15. Neuro [facility] [place] HYPERTENSION Active Condition 08/23/2014 014 [facility] DYSLIPIDEMIA Active Condition 08/23/2014 014 [facility] ANXIETY DEPRESSION Active Condition 08/23/2014 014 [facility] OBESITY Active Condition 08/23/2014 014 [facility] PHYSICAL EXAMINATION Active Condition 08/23/2014 014 [facility] Dyslipidemia Active Problem 05/25/2020 Data MH (disorder) 014 migrated Medical from [facility],Mis Centricity jamee on 02/18/15. Neuro,[facility], [facility] [place] Hypertensive disorder, Active Problem 05/25/2020 Data MH systemic arterial 014 migrated Me dical (disorder) from [facility],Mis Centricity jamee on 02/18/15. Neuro,[facility], [facility] [place] Mixed anxiety and Active Problem 05/25/2020 Data M H depressive disorder 014 migrated Medical (disorder) from [facility],Mis Centricity jamee on 02/18/15. Neuro,[facility] [place] Obesity (disorder) Active Problem 05/25/2020 Data 014 migrated Medical from [facility],Mis Centricity jamee on 02/18/15. Neuro,[facility] [place] Diabetes mellitus Active Problem 05/25/2020 M H (disorder) Medical Group,Mis j[facility]e Neuro, [facility] [place] Diverticulitis Resolved Problem 05/25/2020 MH (disorder) [facility] Group,[facility]is [facility] Neuro,[facility] [place] Headache (finding) Active Problem 05/25/2020 Medical Group,[facility] Neuro, [facility] [place] Hypercholesterolemia Active Problem 05/25/2020 MH (disorder) [facility] Group,Mis j[facility] Neuro,[facility] [place] Lumbar radiculopathy Active Problem 05/25/2020 MH (disorder) [facility] Neuro, [facility] [place] Depressive disorder Active Problem 05/25/2020 MH (disorder) Medical Group,Mis j[facility] Neuro,[facility] [place] Myocardial infarction Active Problem 05/25/2020 MH (disorder) [facility] Neuro, [facility] [place] Dysarthria (finding) Active Problem 05/25/2020 [facility] Paresthesia (finding) Active Problem 05/25/2020 [facility] Medications Medication Details Route Status [...] cap, 3 Refill(s) , Pharmacy: [id number] repaglinide 2 mg oral 4 mg = [...] Active 500 MG Extended 1 tab, 2017 [place] Release Tablet PO, [Cipro] Daily, X 5 day, # 5 tab, 0 Refill(s) Benadryl 50 mg, Inactive Route: 2017 [place] IVP, ONCE, Dosing Weight 110.455, kg, Priority: STAT, Start date: 02/27/17 19:30:00 CDT, Stop date: 02/27/17 19:30:00 CDT Morphine 4 mg, Inactive Route: 2016 [place] IVP, ONCE, Dosing Weight 110.455, kg, Priority: STAT, Start date: 02/27/17 18:55:00 CDT, Stop date: 02/27/17 18:55:00 CDT Zofran 4 mg, Inactive Route: 2016 [place] IVP, Drug form: INJ, ONCE, Dosing Weight 110.455, kg, Priority: STAT, Start date: 02/27/17 18:55:00 CDT, Stop date: 02/27/17 18:55:00 CDT Saline Flush 0.9% Notes: Inactive (Same as: 2016 [place] BD Posiflush ) AMLODIPINE one daily Active [...] PANEL eGFR 95 02/27 Result Comment: The [place] eGFR is calculated using the CKD-EPI formula. [...] PANEL ASPARTATE 13 0 - 37 02/27 [place] CHEM PANEL BUN 10 7 - 22 02/27 [place] CHEM PANEL Creatinine 0.74 0.50 - 06 MH Lvl 1.40 [place] CHEM PANEL ALANINE 28 0 - 65 02/27 AMINO [place] ASE CHEM PANEL Albumin Lvl 3.6 3.5 - 5.0 02/27 [place] CHEM PANEL Alk Phos 81 39 - 136 02/27 [place] CHEM PANEL Glucose Lvl 123 70 - 99 02/27 [place] CHEM PANEL Bili Total 0.3 0.2 - 1.3 02/27 [place] CHEM PANEL Sodium Lvl 143 135 - 145 02/27 [place] CHEM PANEL Total Protein 7.9 6.4 - 8.4 02/27 [place] CHEM PANEL Calcium Lvl 8.9 8.5 - 10.5 02/27 [place] CHEM PANEL Chloride Lvl 107 95 - 109 02/27 [place] CHEM PANEL Potassium Lvl 3.9 3.5 - 5.1 02/27 [place] CHEM PANEL CO2 29 24 - 32 02/27 [place] CHEM PANEL A/G Ratio 0.8 0.7 - 1.6 02/27 [place] CHEM PANEL AGAP 10.9 10.0 - 02/27 MH 20.0 [place] CHEM PANEL Globulin 4.3 2.7 - 4.2 02/27 [place] CHEM PANEL B/C Ratio 14 6 - 25 02/27 [place] CHEM PANEL Lipase Lvl 157 73 - 393 02/27 [place] ENDOCRINOLO hCG Tot 1 02/27 [place] HEMATOLOGY Segs 64.7 45.0 - 02/27 MH 75.0 [place] HEMATOLOGY Lymphocytes # 2.9 1.0 - 5.5 02/27 [place] HEMATOLOGY Basophils # 0.1 0.0 - 0.2 02/27 [place] HEMATOLOGY Eosinophils # 0.4 0.0 - 0.5 02/27 [place] HEMATOLOGY Monocytes # 0.9 0.0 - 0.8 02/27 [place] HEMATOLOGY Segs-Bands # 7.8 1.5 - 8.1 02/27 [place] HEMATOLOGY Eosinophils 3.2 0.0 - 4.0 02/27 [place] HEMATOLOGY Monocytes 7.4 2.0 - 12.0 02/27 [place] HEMATOLOGY Lymphocytes 24.1 20.0 - 02/27 MH 40.0 [place] HEMATOLOGY Basophils 0.6 0.0 - 1.0 02/27 [place] HEMATOLOGY Hct 40.4 36.0 - 02/27 MH 48.0 [place] HEMATOLOGY Hgb 13.9 12.0 - 02/27 MH 16.0 [place] HEMATOLOGY RBC X 10x6 4.61 4.20 - 02/27 MH 5.40 [place] HEMATOLOGY WBC X 10x3 12.0 3.7 - 10.4 02/27 [place] HEMATOLOGY MPV 8.1 7.4 - 10.4 02/27 [place] HEMATOLOGY RDW 13.9 11.5 - 02/27 MH 14.5 [place] HEMATOLOGY Platelet 279 133 - 450 02/27 [place] HEMATOLOGY MCHC 34.5 32.0 - 02/27 MH 36.0 [place] HEMATOLOGY MCH 30.2 27.0 - 02/27 MH 31.0 [place] HEMATOLOGY MCV 87.5 80.0 - 02/27 MH 98.0 [place] URINE AND UA Bacteria Moderate None Seen 02/27 STOOL /HPF /HPF /2016 [place] URINE AND UA Sq Epi Few /LPF Few /LPF 02/27 STOOL /2016 [place] URINE AND UA WBC 11-20 None Seen 02/27 STOOL /HPF /HPF /2016 [place] URINE AND UA RBC 21-50 0 - 2 02/27 STOOL /HPF [place] URINE AND UA Nitrite See Note Negative 02/27 STOOL (02/27/17 5:29 PM) /2016 [place] URINE AND UA Leuk Est Moderate Negative 02/27 STOOL *ABN* /2016 [place] (02/27/17 5:29 PM) URINE AND UA 4.0 0.1 - 1.0 02/27 STOOL Urobilinogen /2016 [place] URINE AND UA Glucose See Note 1 Negative 02/27 Result STOOL (02/27/17 5:29 PM) /2016 Comment: Patricia and Unable to determine due to interference from color of urine.
17:57 cg URINE AND UA Ketones Negative Negative 02/27 STOOL *NA* /2016 [place] (02/27/17 5:29 PM) URINE AND UA Bili See Note Negative 02/27 STOOL (02/27/17 5:29 PM) /2016 [place] URINE AND UA Blood Large Negative 02/27 STOOL *ABN* [place] (02/27/17 5:29 PM) URINE AND UA Protein >=300 Negative 02/27 STOOL mg/dL mg/dL [place] URINE AND UA Turbidity Slight Cloudy Clear 02/27 STOOL (02/27/17 5:29 PM) /2016 [place] URINE AND UA Spec Grav >=1.030 <=1.030 02/27 STOOL *ABN* /2016 [place] (02/27/17 5:29 PM) URINE AND UA pH 5.5 5.0 - 8.0 02/27 STOOL /2016 [place] URINE AND UA Color [place] Yellow 02/27 STOOL *ABN* /2016 [place] (02/27/17 5:29 PM) URINE CHEM U Preg [...] 133 - 450 01/17 Medical [facility] HGB 14.9 12.0 - 01/17 16.0 /2013 Medical [facility] HCT 43.8 36.0 - 01/17 48.0 /2014 Medical [facility] PLATELETS 251 K/CMM 133 - 450 01/17 [facility] Group Professor/Nurse Anesthetist PAP SMEAR Complete 02/17 [facility] Group Professor/Nurse Anesthetist PAP SMEAR Complete 02/17 [facility] Group Pathology PAP SMEAR Complete 02/17 [facility] Pathology PAP SMEAR Complete 02/17 [facility] Pathology Reports No Data Provided for This Section Diagnostic Reports Report Value Date Source Abd Pancreatic Abd Pancreatic Protocol w/wo contrast CT 10/30/2019 8:41 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 02/27/[address] [facility] contrast only CT HISTORY: Left lower [...] Comments Source Systolic (mm Hg) 142 02/07/2020 [facility] Roxy ro Diastolic (mm Hg) 99 02/07/2020 [facility] Ne uro Heart Rate 80 02/07/2020 [facility] Neuro Respitory Rate 16 02/07/2020 [facility] Neuro Height 167.64 cm 02/07/2020 [facility] Neuro Weight 108.182 02/07/2020 [facility] Neuro BMI Calculated 38.49 02/07/2020 [facility] Neuro Systolic (mm Hg) 132 12/05/2019 [facility] Roxy ro Diastolic (mm Hg) 77 12/05/2019 [facility] Ne uro Heart Rate 85 12/05/2019 [facility] Neuro Respitory Rate 16 12/05/2019 [facility] Neuro Height 167.64 cm 12/05/2019 [facility] Neuro Weight 111.818 12/05/2019 [facility] Neuro BMI Calculated 39.79 12/05/2019 [facility] Neuro Systolic (mm Hg) 137 10/12/2019 Medical [...] [facility] Heart Rate 91 05[facility]18/2019 [facility] Respitory Rate 16 05/18/2019 [facility] [...] uro Systolic (mm Hg) 133 02/28/2017 MH [place] Diastolic (mm Hg) 63 02/28/2017 [place] Respitory Rate 18 02/28/2017 [place] Temperature Oral (F) 98 F 02/28/2017 [place] Heart Rate 82 02/28/2017 MH [place] Systolic (mm Hg) 142 02/28/2017 MH [place] Diastolic (mm Hg) 70 02/28/2017 [place] Heart Rate 122 02/27/2017 MH [place] Systolic (mm Hg) 128 02/27/2017 MH [place] Diastolic (mm Hg) 85 02/27/2017 [place] Temperature Oral (F) 98.6 F 02/27/2017 [facility] Respitory Rate 18 02/27/2017 [facility] Height 167.64 cm 02/27/2017 [facility] BMI Calculated 39.3 02/27/2017 [facility] Weight 110.455 02/27/2017 [facility] Height 65.5 08/23/2014 Medical Grou [...] Type Number For Provider Date Date Visit [facility] Lab Report [id number] Samson 01/17 01/17 Srini 6980 Medical Medical [facility] Office [id number] Samson 03/29 03/29 Srini Visit 1590 Medical Medical MD [facility] Group [facility] Office [id number] Samson 05/10 05/10 [place] Visit 5240 , Medical Medical MD Group Group [facility] Lab Report [id number] Samson 05/10 05/10 [place] 2930 [place], Medical Medical MD Group Group [facility] Office [id number] Samson 08/23 08/23 [place] Visit 3330 [place], Medical Medical MD Group Group [facility] Emergency [id number] Spike 02/27 02/28 [place] Wenceslao /2016 [facility] MNA Outpatient [id number] Ruy 04/03 04/04 [facility] Neurology Kre [facility] [place] Outpatient [id number] Ruy 05/18 Active [facility] Kre [facility] MNA Outpatient [id number] Ruy 05/18 05/19 [facility] Neurology Kre Neuro [place] Outpatient [id number] Ruy 06/27 Active [facility] Kre [place] MNA Outpatient [id number] Ruy 06/27 06/28 [facility] Neurology Kre Neuro [place] Outpatient [id number] Ruy 08/08 Active [facility] Kre [place] MNA Outpatient [id number] Ruy 08/08 08/09 [facility] Neurology Kre Neuro [place] Outpatient [id number] Nadim 10/12 Active [facility] [place] [facility] Outpatient [id number] Nadim 10/12 10/13 G[facility]enter [place] /2019 Medic al olog[facility] [place] [facility] Between [id number] 10/13 10/14 Gastroenter Visit /2019 Medic al ology [facility] Outpt Diag [id number] Nadim 10/30 10/31 [facility] Outpatient Services [place] /2019 [facility] [place] Outpatient [id number] Ruy 12/04 Active [facility] Kre Srini MNA Outpatient [id number] Ruy 12/04 12/05 [facility]2019 Neuro [place] Outpatient [id number] Ruy 01/09 Active [facility] Kre Srini MNA Outpatient [id number] Ruy 01/09 01/10 [facility] K[place] /2019 Neuro [place] Outpatient [id number] Ruy 02/06 [facility]2020 [place] [facility]NA Outpatient [id number] Ruy 02/06 02/07 [facility] [place] /2019 Neuro [place] Outpatient [id number] Ruy 04/02 Active [facility] /2020 [place] [facility]NA Ambulatory [id number] Ruy 04/02 04/02 [facility] Pre-Reg [place] /2019 Neuro [place] Outpatient [id number] Ruy 05/23 Active [facility]2020 [facility] Outpatient [id number] Ruy 05/23 Active [facility] /2019 [place] MNA Ambulatory [id number] Ruy 05/23 05/23 [facility] Pre-Reg [place] /2019 Neuro [place] MNA Ambulatory [id number] Ruy 05/23 05/23 [facility] Pre-Reg [place] /2019 Neuro [place] Procedures Procedure Code Date Perfomer Comments Source smoking/tobacco 14 01/17/2014 [facility] l cessation, patient Group education and counseling mammogram 97250 04/19/2013 [facility] vaginal Pap smear 70608 02/17/2013 [facility] johnny results Group Assessment and Plan No [...] entered on: 02/07/20 Social History TypeResponse 04/03/2019 Medical Fermin george Employment/School Status: Employed. Work/School description: [employer]. [...] entered on: 10/12/19 Social History TypeResponse 02/27/2017 ZANA Antunez Smoking Status Current every day smoker; Lives with chau mesa who smokes; Cigarette Smoking Last 365 Days Yes; Reg Smoking Cessation Counseling Yes Family History No Data Provided for This Section Advance Directives No Data Provided for This Section Functional Status No Data Provided for This Section
--- OUTSIDE RECORDS SUMMARY | 2020-06-18 02:17 | XMS REPORT | Summary of Care ---
:1970 Author Organization [facility] Neurology [place] Address [address] [place] [address]- phone Encounter HQ Varun_clemencia(FIN) [id number] Date(s): 05/23/20 - 05/23/20 [facility] [address] [place] [address]- [phone] Attending Physician: Ruy Mac MD Referring Physician: [...] of knee6 08/23/14 Resolved Temporomandibular 08/23/14 Resolved [id number] syndrome7 Urinary tract infectious disease8 03/29/14 Resolved [...]
--- OUTSIDE RECORDS SUMMARY | 2020-06-18 02:19 | XMS REPORT | Continuity of Care Document ---
:1970 Author Organization [facility] t Address [address] [place] [id number] Care Team Providers Name Role Phone Onur Perez MD Primary Care Physician Valentín Mac Attending Clinician KARIN KERN Attending Clinician Unavailable Karin Kern MD Attending Clinician Jorge Saleh Attending Clinician Jorge A Billy Attending Clinician Payers Payer Name Policy Type Policy Number Effective Date Expiration Date S ource [facility] REVIEWCDC xxxxxxxx [facility] REVIEWxxxxxxxxPO [facility] [id number] Center Problems Condition Condition Condition Status Onset Resolution Last Treating Co mments Source Name Details Category Date Date Treatment Clinician Date ABD PAIN Diagnosis Active 2017-02-27 M emoria - 17:40:00 l ABD PAIN 00:00: Juan F n 00 Active 02/27/2017 [facility] Srini TMJ Condition Active 2013-092014-08-23 Mem oria SYNDROME 2-05 10:51:01 l TMJ 00:00: [place] SYNDROME 00 Active 08/23/2014 [facility] MEDIAL Condition Active 2013-092014-08-23 Mem oria MENISCUS 2-05 10:51:01 l TEAR, LEFT MEDIAL 00:00: Herm birgit MENISCUS 00 TEAR, LEFT Active 08/23/2014 [facility] POLYDIPSIA Condition Active 2014-08-23 Memoria 8- 10:51:01 l 00:00: [place] POLYDIPSIA 00 Active 05/10/2014 Condition [facility] HYPERTENSI Condition Active 2014-08-23 Memoria ON 01-17 10:51:01 l 00:00: Srini HYPERTENSI 00 ON Active 4 Condition 08/23/2014 Medical Group DYSLIPIDEM Condition Active 2014-08-23 Memoria IA 01-17 10:51:01 l 00:00: [place] DYSLIPIDEM 00 IA Active 4 Condition 08/23/2014 [...] Condition [facility] Dyslipidem Problem Active 2020-05-25 M emoria ia 01-17 21:16:56 l (disorder) 00:00: Juan F n Dyslipidem 00 ia (disorder) Active 01/17/2014 Problem 05/25/2020 Data migrated from [employer] on 02/18/15. Medical Group,[facility] her [facility], [place],[facility] H OP[facility] [place] Hypertensi Problem Active 2020-05-25 M emoria ve 01-17 21:16:56 l disorder, 00:00: Srini systemic Hypertensi 00 arterial ve (disorder) disorder, systemic arterial (disorder) Active 01/17/2014 Problem 05/25/2020 Data migrated from [employer] on 02/18/15. Medical Group,[facility] [place],[facility] [place] Mixed Problem Active 2020-05-25 Memor ia anxiety - 21:16:56 l and Mixed 00:00: [place] depressive anxiety 00 disorder and (disorder) depressive disorder (disorder) Active 01/17/2014 Problem 05/25/2020 Data migrated from [employer] on 02/18/15. Medical Group,[facility] her [facility], [place],[facility] [place] Obesity Problem Active 2020-05-25 Alexey farida (disorder) 01-17 21:16:56 l Obesity 00:00: Srini (disorder) 00 Active 01/17/2014 Problem 05/25/2020 Data migrated from [employer] on 02/18/15. Medical Group,[facility] her [facility], [place],[facility] [place] Diverticul Problem Resolve 2020-05-25 Memoria itis d 21:16:56 l (disorder) Juan F n Diverticul itis (disorder) Resolved Problem 05/25/2020 Medical Group,[facility], [place],[facility] [place] Diabetes Problem Active 2020-05-25 Mem oria mellitus 21:16:56 l (disorder) Diabetes He rmann mellitus (disorder) Active Problem 05/25/2020 Medical Group,[facility], OP[facility] [place] Headache Problem Active 2020-05-25 Mem oria (finding) 21:16:56 l Headache Juan F n (finding) Active Problem 05/25/2020 Medical Group,[facility], [facility] [place] Hyperchole Problem Active 2020-05-25 M emoria sterolemia 21:16:56 l (disorder) Juan F n Hyperchole sterolemia (disorder) Active Problem 05/25/2020 Medical Group,[facility], [place],[facility] H [facility] [place] Lumbar Problem Active 2020-05-25 Memor ia radiculopa 21:16:56 l thy Lumbar [place] (disorder) radiculopa thy (disorder) Active Problem 05/25/2020 Medical Group,[facility], [facility] [place] Depressive Problem Active 2020-05-25 M emoria disorder 21:16:56 l (disorder) Juan F n Depressive disorder (disorder) Active Problem 05/25/2020 Medical Group,[facility], [place],[facility] [place] Myocardial Problem Active 2020-05-25 M emoria infarction 21:16:56 l (disorder) Juan F n Myocardial infarction (disorder) Active Problem 05/25/2020 Medical Group,[facility],MH OPID [place] Dysarthria Problem Active 2020-05-25 M emoria (finding) 21:16:56 l [place] Dysarthria (finding) Active Problem 05/25/2020 [facility] Paresthesi Problem Active 2020-05-25 M emoria a 21:16:56 l (finding) Srini Paresthesi a (finding) Active Problem 05/25/2020 [facility] Urinary Problem 2016-2017-03-02 2017-03-02 Memoria tract 6- 00:42:19 00:42:19 l infection, Urinary 05:00: Her ley site not tract 00 specified infection, site not specified 02/27/2017 03/02/2017 [place] History of Past Illness Condition Condition Condition Status Onset Resolution Last Treating Co mments Source Name Details Category Date Date Treatment Clinician Date Tear of Problem Resolve 2013-092020-05-25 2020-05-25 Memoria medial d 2-05 21:16:56 21:16:56 l meniscus Tear of 00:00: Alisia nn of knee medial 00 (disorder) meniscus of knee (disorder) Resolved 08/23/2014 Problem 05/25/2020 Data migrated from [employer] on 02/18/15. Medical Group,[facility], Puneet Antunez OPID [place] Temporoman Problem Resolve 2013-092020-05-25 2020-05-25 Memoria dibular d 2-05 21:16:56 21:16:56 l joint-pain 00:00: Juan F n -dysfuncti Temporoman 00 on dibular syndrome joint-pain (disorder) -dysfuncti on syndrome (disorder) Resolved 08/23/2014 Problem 05/25/2020 Data migrated from [employer] on 02/18/15. Medical Group,[facility] her Neuro,Puneet Ocampo OPID [place] Excessive Problem Resolve 2013-2020-05-25 2020-05-25 Memoria thirst d 8-22 21:16:56 21:16:56 l (finding) 00:00: [place] Excessive 00 thirst (finding) Resolved 05/10/2014 Problem 05/25/2020 Data migrated from [employer] on 02/18/15. Medical Group,[facility] her Neuro,Puneet Ocampo OPID [place] Urinary Problem Resolve 2020-05-25 2020-05-25 Memoria tract d 03-29 21:16:56 21:16:56 l infectious Urinary 00:00: Her ley disease tract 00 (disorder) infectious disease (disorder) Resolved 03/29/2014 Problem 05/25/2020 Data migrated from [employer] on 04/04/15. Medical Group,[facility],Puneet Ocampo OPID [place] RHINITIS Condition Inactiv 2014-08-23 2014-08-23 Memoria e 03-29 10:51:01 10:51:01 l RHINITIS 00:00: Juan F n 00 Inactive 03/29/2014 Condition [facility] UTI Condition Inactiv 2014-08-23 2014-08-23 Memoria e 03-29 10:51:01 10:51:01 l UTI 00:00: [place] 00 Inactive 03/29/2014 Condition [facility] Allergies, Adverse Reactions, Alerts Allergy Allergy Status Severity Reaction(s) Onset Inactive Treating Comm ents Source Name Type Date Date Clinician Iodinate Drug Active Swelling [facility] St d Allergy 5-26 [facility] Cont[facility] 00:00: [facility] 00 Center Iodine Propensi Active [place] And ty to 04-06 [facility] Iodide adverse 00:00: st Containi reaction 00 ng s to Products drug No Known No Known Active Memori a Medicati Medicati l on on Srini Allergthang Allergthang s s Family History Family Member Diagnosis Comments Start Date Stop Date Source Natural brother Cancer Jayesh Teixeira ethodist Natural father Alzheimer's disease [facility] Natural father Hypertension [facility] Natural mother Cancer [facility] Natural mother Hypertension [facility] Social History Social Habit Start Date Stop Date Quantity Comments Source Sex Assigned At [facility] Social History 2019-04-03 2019-04-03 [facility] Rad padilla 18:52:55 18:52:55 Tobacco use and 2017-12-19 2017-12-19 Never used Jayesh Teixeira ethodist exposure 00:00:00 00:00:00 Alcohol intake 2017-12-19 2017-12-19 Current [facility] thodist 00:00:00 00:00:00 non-drinker of alcohol (finding) Smoking Status Start Date Stop Date Source Social History 2017-02-27 23:48:32 [facility] ley Medications Ordered Filled Start Stop Current Ordering Indication Dosage Frequency Signature Comments Components Source Medication Medication Date Date Medication? Clinician (SIG) Name Name albuterol No 2{puff} Inhale [address] [facility] HFA 02-11 puffs by [facility] - (VENTOLIN 00:00: 23:59 mouth via Me dical HFA) 90 00 :00 inhaler Center mcg/actuati every 4 on inhaler (four) hours as needed for Wheezing. predniSONE No 50mg QD Take [address] [facility] (DELTASONE) 02-11 tablet (50 L ukes - 50 MG 00:00: 23:59 mg total) Medica l tablet 00 :00 by mouth Center daily for 5 days. AZITHROmyci No Take [address] [facility] n 02-11 tablets [facility] - (ZITHROMAX) 00:00: 23:59 (500 mg Me dical 250 MG 00 :00 total) by Center tablet mouth daily for 1 day, THEN 1 tablet (250 mg total) daily for 4 days. Take by mouth as directed.. albuterol No 2{puff} Inhale [address] [facility] [address] HFA 02-11- puffs by [facility] - (VENTOLIN 00:00: 00:00 mouth via Me dical HFA) 90 00 :00 inhaler Center mcg/actuati every 4 on inhaler (four) hours as needed for Wheezing. AZITHROmyci 2019- No Take [address] [facility] n -11 02- tablets [facility] - (ZITHROMAX) 00:00: 00:00 (500 mg Me dical 250 MG 00 :00 total) by Center tablet mouth daily for 1 day, THEN 1 tablet (250 mg total) daily for 4 days. Take by mouth as directed.. pregabalin Yes 75 mg = 1 Me moria 75 MG Oral 5-21 cap, PO, l Capsule 15:03: Daily, # Juan F n [Lyrica] 00 30 cap, 3 Refill(s), other aripiprazol 2020-0 Yes 5 mg = 1 Me moria e 5 MG Oral 5-21 tab, PO, l Tablet 14:52: Daily, 0 [Abilify] Refill(s) Diclofenac 2020-0 Yes 2 gm, TOP, M emoria Sodium 0.01 4-23 BID, 0 l MG/MG 14:28: Refill(s) Topical Gel [Voltaren] Repatha 2020-0 Yes 140 mg, Memoria 4-23 SUB-Q, l 14:28: qMonth, 0 Refill(s) meloxicam 2019-0 Yes 15 mg, PO, Me moria 4-23 Daily, 0 l 14:25: Refill(s) Methocarbam 2019-0 Yes 0 Memori a ol 4-23 Refill(s) l 14:25: NovoLog 2020-0 Yes 25 unit, Memori a 4-23 SUB-Q, l 14:24: TID-Before Meals, 0 Refill(s) pregabalin 2019-0 Yes 75 mg = 1 Me moria 75 MG Oral 3-18 cap, PO, l Capsule 19:33: BID, # 60 Alisia nn [Lyrica] 00 cap, 3 Refill(s), Pharmacy: [id number] repaglinide 2019-0 Yes 4 mg = 2 [...] nn [Lyrica] 16 cap, 3 Refill(s) pregabalin 2019 Yes 75 mg = 1 Me moria 75 MG Oral 8-30 cap, PO, l Capsule 20:43: BID, # 60 Alisia nn [Lyrica] 00 cap, 2 Refill(s) ezetimibe Yes 10 mg = 1 Mem oria 7-16 tab, PO, l 18:39: Daily, # [place] 00 30 tab, 0 Refill(s) Nitroglycer Yes [...] [place] (VIBRA-TABS 7-17 BID WITH Meth grsi ) 100 MG 00:00: FOOD. st tablet 00 sulfamethox Yes TAKE 1 [place] azole-trime 7-14 TABLET BY Met hodi thoprim 00:00: MOUTH st (BACTRIM 00 EVERY 12 DS) 800-160 HOURS FOR mg per 10 DAYS tablet lamoTRIgine Yes 200mg QD Take 200 [place] (LaMICtal) 7-12 mg by Methodi 200 MG 00:00: mouth once st tablet 00 daily. sertraline 2017-0 Yes 100mg QD Take 100 [place] (ZOLOFT) 7-12 mg by Methodi 100 MG 00:00: mouth once st tablet 00 daily. ALPRAZolam 2017- Yes TAKE 1 [place] (NIRAVAM) 6-21 TABLET BY Metho di 0.5 MG 00:00: MOUTH ONCE st disintegrat 00 A DAY ing tablet NEEDED ciprofloxac 2017-0 Yes QD Take by Serena fritzroxana in, 6-19 mouth once Methodi mixture, 00:00: daily. st (CIPRO XR) 00 500 mg 24 hr tablet telmisartan 2017-0 Yes 80mg QD Take 80 mg [facility] (MICARDIS) 6-15 by mouth Metho di 80 MG 00:00: once st tablet 00 daily. amLODIPine 2017-0 Yes 5mg QD Take 5 mg Ho ol[place] (NORVASC) 5 6-14 by mouth Meth gris [...] 00:00: once st capsule 00 daily. tramadol 2017- Yes 50 mg = 1 Alexey farida hydrochlori 6-12 tab, PO, l de 50 MG 01:01: Q6H, PRN Alisia nn Oral Tablet 00 Pain, X 3 day, # 12 tab, 0 Refill(s) 24 HR 2017- Yes 500 mg = 1 Memori a Ciprofloxac 6-12 tab, PO, l in 500 MG 01:00: Daily, X 5 He rmann Extended 00 day, # 5 Release tab, 0 Tablet Refill(s) [Cipro] Benadryl 2017- No 50 mg, Memoria 6-12 Route: l 00:30: IVP, ONCE, Srini Dosing Weight 110.455, kg, Priority: STAT, Start date: 02/27/17 19:30:00 CDT, Stop date: 02/27/17 19:30:00 CDT Morphine 2017-0 No 4 mg, Memoria 6-11 Route: l 23:55: IVP, ONCE, Dosing Weight 110.455, kg, Priority: STAT, Start date: 02/27/17 18:55:00 CDT, Stop date: 02/27/17 18:55:00 CDT Zofran 2017-0 No 4 mg, Memoria 6-11 Route: [...] moria BESY-BENAZE 2-05 l PRIL HCL 00:00: [place] 10-40 MG 00 CAPS DYAZIDE 2013-09 Yes one daily Memor ia 37.5-25 MG 2-05 l CAPS 00:00: [place] 00 AMLODIPINE Yes one daily Me moria BESY-BENAZE 8-22 l PRIL HCL 00:00: [place] 5-40 MG 00 CAPS ATORVASTATI Yes one tablet Memoria N CALCIUM 7-11 every l 10 MG TABS 00:00: evening Herm birgit AMLODIPINE No One tablet M emoria BESY-BENAZE 7-11 every l PRIL HCL 00:00: morning. Alisia nn 5-20 MG 00 CAPS BACTRIM DS No one bid. Mem oria 800-160 MG 7-11 l TABS 00:00: [place] ATORVASTATI Yes one tablet Memoria N CALCIUM 7-11 every l 10 MG TABS 00:00: evening Herm birgit 00 DIOVAN HCT 0 No one daily Me moria 160-12.5 MG 5-01 l TABS 00:00: LAMICTAL 0 Yes 1 tablet Memor ia 150 MG TABS 5-01 daily l 00:00: LEXAPRO 20 Yes 1 tablet Mem oria MG TABS 5-01 twice day l 00:00: ALPRAZOLAM Yes 1 tablet Mem oria 0.5 MG TABS 5-01 daily PRN l 00:00: LEXAPRO 20 Yes 1 tablet Mem oria MG TABS 5-01 twice day l 00:00: ALPRAZOLAM Yes 1 tablet Mem oria 0.5 MG TABS 5-01 daily PRN l 00:00: DIOVAN HCT No one daily Me moria 160-12.5 MG 5-01 l TABS 00:00: Vital Signs Vital Name Observation Time Observation Value Comments Source Systolic blood 2020-02-12 19:00:00 124 mm[Hg] [facility] Diastolic blood 2020-02-12 19:00:00 68 mm[Hg] [facility] Heart rate 2020-02-12 19:00:00 98 /min [facility] Respiratory rate 2020-02-12 19:00:00 19 /min [facility] Oxygen saturation in 2020-02-12 19:00:00 96 /min [facility] Arterial blood by Medical Ce nter Pulse oximetry Body temperature 2020-02-12 15:57:00 36.89 Ayse [facility] Body weight Measured 2020-02-12 15:57:00 107.956 kg [facility] Systolic (mm Hg) 2020-02-07 14:50:00 Alexey rial [place] Diastolic (mm Hg) 2020-02-07 14:50:00 Mem orial Srini Heart Rate 2020-02-07 14:50:[address] [facility] Respitory Rate 2020-02-07 14:50:00 Memori al Srini Height 2020-02-07 14:50:00 167.64 cm [facility] [place] Weight 2020-02-07 14:50:00 [facility] Srini BMI Calculated 2020-02-07 14:50:00 Memori al [place] Systolic (mm Hg) 2019-12-05 19:12:00 Alexey rial Srini Diastolic (mm Hg) 2019-12-05 19:12:00 Mem orial [place] Heart Rate 2019-12-05 19:12:00 [facility] [place] Respitory Rate 2019-12-05 19:12:00 Memori al Srini Height 2019-12-05 19:12:00 167.64 cm [facility] [place] Weight 2019-12-05 19:12:00 [facility] [place] BMI Calculated 2019-12-05 19:12:00 Memori al Srini Systolic (mm Hg) 2019-10-12 17:34:00 Alexey rial [place] Diastolic (mm Hg) 2019-10-12 17:34:00 Mem orial Srini Heart Rate 2019-10-12 17:34:00 Memorial Srini Height 2019-10-12 17:34:00 167.64 cm [facility] [place] Weight 2019-10-12 17:34:00 [facility] Srini BMI Calculated 2019-10-12 17:34:00 Memori al [place] Systolic (mm Hg) 2019-08-08 20:55:00 Alexey rial Srini Diastolic (mm Hg) 2019-08-08 20:55:00 Mem orial [place] Heart Rate 2019-08-08 20:55:00 Memorial Srini Respitory Rate 2019-08-08 20:55:00 Memori al Srini Height 2019-08-08 20:55:00 167.64 cm [facility] [place] Weight 2019-08-08 20:55:00 [facility] Srini BMI Calculated 2019-08-08 20:55:00 Memori al [place] Systolic (mm Hg) 2019-06-27 20:49:00 Alexey rial [place] Diastolic (mm Hg) 2019-06-27 20:49:00 Mem orial Srini Heart Rate 2019-06-27 20:49:00 [facility] [place] Respitory Rate 2019-06-27 20:49:00 Memori al Srini Height 2019-06-27 20:49:00 167.64 cm Memorial Srini Weight 2019-06-27 20:49:00 [facility] [place] BMI Calculated 2019-06-27 20:49:00 Memori al [place] Systolic (mm Hg) 2019-05-18 20:00:00 Alexey rial Srini Diastolic (mm Hg) 2019-05-18 20:00:00 Mem orial Srini Heart Rate 2019-05-18 20:00:00 Memorial Srini Respitory Rate 2019-05-18 20:00:00 Memori al Srini Height 2019-05-18 20:00:00 167.64 cm Memorial Srini Weight 2019-05-18 20:00:00 [facility] [place] BMI Calculated 2019-05-18 20:00:00 Memori al Srini Weight 2019-04-03 18:11:00 [facility] Srini BMI Calculated 2019-04-03 18:11:00 Memori al [place] Height 2019-04-03 18:11:00 167.64 cm [facility] [place] Heart Rate 2019-04-03 18:11:00 [facility] [place] Respitory Rate 2019-04-03 18:11:00 Memori al [place] Systolic (mm Hg) 2019-04-03 18:11:00 Alexey rial [place] Diastolic (mm Hg) 2019-04-03 18:11:00 Mem orial [place] Systolic (mm Hg) 2017-02-28 01:20:00 Alexey rial [place] Diastolic (mm Hg) 2017-02-28 01:20:00 Mem orial Srini Respitory Rate 2017-02-28 00:36:00 Memori al [place] Temperature Oral (F) 2017-02-28 00:36:00 98 F [facility] Srini Heart Rate 2017-02-28 00:36:00 [facility] Systolic (mm Hg) 2017-02-28 00:36:00 Alexey rial [place] Diastolic (mm Hg) 2017-02-28 00:36:00 Mem orial [place] Heart Rate 2017-02-27 22:13:00 [facility] [place] Systolic (mm Hg) 2017-02-27 22:13:00 Alexey rial Srini Diastolic (mm Hg) 2017-02-27 22:13:00 Mem orial [place] Temperature Oral (F) 2017-02-27 22:13:00 98.6 F [facility] [place] Respitory Rate 2017-02-27 22:13:00 Memori al [place] Height 2017-02-27 22:13:00 167.64 cm Memorial Srini BMI Calculated 2017-02-27 22:13:00 Memori al Srini Weight 2017-02-27 22:13:00 [facility] [place] Height 2014-08-23 16:51:01 [facility] Srini Weight 2014-08-23 16:51:01 [facility] Srini Temperature Oral (F) 2014-08-23 16:51:01 98.1 F [facility] Sr[facility] Heart Rate 2014-08-23 16:51:01 [facility] Srini Systolic (mm Hg) 2014-08-23 16:51:01 Alexey rial [place] Diastolic (mm Hg) 2014-08-23 16:51:01 Mem orial [place] Weight 2014-05-10 15:26:33 Memorial Srini Temperature Oral (F) 2014-05-10 15:26:33 98.2 F [facility] [place] Heart Rate 2014-05-10 15:26:33 [facility] [place] Systolic (mm Hg) 2014-05-10 15:26:33 Alexey rial Srini Diastolic (mm Hg) 2014-05-10 15:26:33 Mem orial Srini Height 2014-05-10 15:26:33 [facility] [place] Weight 2014-03-29 15:53:52 [facility] Srini Temperature Oral (F) 2014-03-29 15:53:52 97.8 F [facility]ini Heart Rate 2014-03-29 15:53:52 [facility] [place] Systolic (mm Hg) 2014-03-29 15:53:52 Alexey rial Srini Diastolic (mm Hg) 2014-03-29 15:53:52 Mem orial Srini Height 2014-01-17 14:43:32 [facility] [place] Weight 2014-01-17 14:43:32 [facility] [place] Temperature Oral (F) 2014-01-17 14:43:32 98.0 F [facility] [place] Heart Rate 2014-01-17 14:43:32 [facility] Srini Systolic (mm Hg) 2014-01-17 14:43:32 Alexey rial [place] Diastolic (mm Hg) 2014-01-17 14:43:32 Mem orial [place] Procedures Procedure Date / Time Performed Performing Clinician Sourc e XR CHEST 2 VIEWS 2020-02-12 17:30:00 Sean Kern [facility] SARS-COV2/RT-PCR ([facility] & 2020-02-12 17:15:00 Sean Kern Darrell eptr [facility] - REF LABS) [facility] B-TYPE NATRIURETIC 2020-02-12 17:15:00 Sean Kern [facility] - FACTOR (BNP) [facility] BASIC METABOLIC PANEL 2020-02-12 17:15:00 Isaac Sean Butlerbc [facility] - (7) [facility] TROPONIN I 2020-02-12 17:15:00 Sean Kern [facility] CBC W/PLT COUNT & AUTO 2020-02-12 17:15:00 Sean Kern [facility] DIFFERENTIAL [facility] ECG 12-LEAD 2020-02-12 16:18:19 Unknown, Hl7 Doctor [facility] smoking/tobacco 2014-01-17 14:43:32 [facility] ley cessation, patient education and counseling mammogram 2013-04-19 15:45:41 [facility] vaginal Pap smear 2013-02-17 14:53:37 [facility] results Plan of Care Planned Activity Planned Date Details Comments Source Future Scheduled 2020-04-19 [facility]FL[facility]ENZA VACCINE [facility] Test 00:00:00 [code = INFLUENZA VACCINE] Future Scheduled 2018 BREAST CANCER [facility] thodist Test 00:00:00 SCREENING [code = BREAST CANCER SCREENING] Future Scheduled 2018 COLONOSCOPY SCREENING [facility] Test 00:00:00 [code = COLONOSCOPY SCREENING] Future Scheduled 2018 SHINGLES VACCINES [facility] Test 00:00:00 (#1) [code = SHINGLES VACCINES (#1)] Future Scheduled 1989 Screening for [facility] thodist Test 00:00:00 malignant neoplasm of cervix (procedure) [code = 022604333] Encounters Start End Encounter Admission Attending Care Care Encounter Source Date/Time Date/Time Type Type Clinicians Facility Department ID 2020-05-23 2020-05-23 Outpatient DASHA Mac [id number] 09:15:00 09:15:00 Ruy 08 Valentín 2020-05-23 2020-05-23 Outpatient DASHA Mac [id number] 09:15:00 09:15:00 Ruy 09 Valentín 2020-04-02 2020-04-02 Outpatient Estefania, MHMISCHER MHMISCHER [id number] 13:15:00 13:15:00 Ruy 05 Valentín 2020-02-07 2020-02-07 Outpatient Estefania, MHMISCHER MHMISCHER [id number] 09:30:00 23:59:59 Ruy Valentín 2020-01-10 2020-01-10 Outpatient Estefania MHMISCHER MHMISCHER [id number] 09:15:00 23:59:59 Ruy Valentín 2019-12-05 2019-12-05 Outpatient Estefania, MHMISCHER MHMISCHER [id number] 13:45:00 23:59:59 Ruy Valentín 2019-10-30 2019-10-30 Outpatient Therese, [id number] 08:26:00 23:59:00 Nadim Jorge [id number] 2019-10-13 2019-10-14 Outpatient [facility] [id number] 13:24:03 13:24:03 2019-10-12 2019-10-12 Outpatient Therese, MG MG [id number] 11:00:00 23:59:59 Nadim Jorge 00 2019-08-08 2019-08-08 Outpatient Estefania, MHMISCHER MHMISCHER [id number] 14:45:00 23:59:59 Ruy 03 Valentín 2019-06-27 2019-06-27 Outpatient Estefania, MHMISCHER MHMISCHER [id number] 15:45:00 23:59:59 Ruy Valentín 2019-05-18 2019-05-18 Outpatient Estefania, MHMISCHER MHMISCHER [id number] 14:30:00 23:59:59 Ruy Valentín 2019-04-03 2019-04-03 Outpatient Estefania, MHMISCHER MHMISCHER [id number] 13:00:00 23:59:59 Ruy 00 Valentín 2017-02-27 2017-02-27 Outpatient MICKEY Billy [facility] [id number] 17:07:00 20:28:00 Spike Samayoa Jorge A Results Test Description Test Time Test Comments Results Result Sourc e Comments ECG 12 lead 2020-01-19 Interface, External Ris [facility] In - 02/13/2020 6:29 Ashley es - 06:29:35 AM CDTVentricular Rate Me dical 94 BPMAtrial Rate 94 Cent er BPMP-R Interval 124 msQRS Duration 72 msQ-T Interval 378 msQTC Calculation(Bazett) 472 msP [place] 5 degreesR [place] -1 degreesT [place] 23 degreesNormal sinus rhythmNormal ECGNo previous ECGs availableConfirmed by MD CB, AGUILA Colin ([id number]) on 02/13/2020 6:29:32 AM SARS-CoV2/RT-PCR (Symptomatic ONLY) 2020-02-12 19:30:00 Test Item Value Reference Range Interpretation Comme nts SARS-COV2/RT-PCR (test code = Not Detected Not Detected, Negative 29312-8) SARS-COV-2 PERFORMING LAB [facility] (test code = 38249-9) MARGARITA (test code = MARGARITA) Negative results [...] of the Act. Fact Sheet for Healthcare Providers:https://www.LoveLive.TV .[employer]/Documents/Xpert%20Xpress %20SARS%20CoV-2/Fact%20Sheets /302-3802%13PLZA-DWI-8%20HEAL THCARE%20PROVIDERS%20FACT%20S HEET.pdf Fact Sheet for Healthcare Patients:https://www.[employer]/Documents/Xpert%20Xpress% 20SARS%20CoV-2/Fact%20Sheets/ 302-3801%19QBSB-PSM-6%20PATIE NT%20FACT%20SHEET.pdf Performing Laboratory:[place] [address] [place], [place] [address] [place], [place] [address]ARS-COV2/RT-PCR ([facility] & REF LABS)2020-02-12 19:30:00 Test Item Value Reference Range Interpretation Comments SARS-COV2/RT-PCR (test Not Detected Not Detected, Negative code = 6574378) SARS-COV-2 PERFORMING LAB [facility] (test code = 1909013) Negative results do not preclude SARS-CoV-2 infection [...] of the Act.Fact Sheet for Healthcare Pro viders:https://www.[employer]/Documents/Xpert%20Xpress%20SARS%20CoV-2/Fact%20Sh eets/[email or web address]%68NLXJ-VOE-7%20HEALTHCARE%20PROVIDERS%20FACT%20SHEET.pdfFact Sheet for Healthcare Patients:[email or web address]/Xpert%20Xpress%20SARS%20CoV-2/Fact%20Sheets/302-9641%20SARS-COV -2%20PATIENT%20FACT%20SHEET.pdfPerforming Laboratory:[facility], [place] [address]Otuyemmt [id number] 18:17:00 Test Item Value Reference Range Interpretation Comments Troponin I (test code = <0.01 0-0.03 91034-6) MARGARITA (test code = MARGARITA) Troponin I [...] E Lab Interpretation (test Normal code = 79293-0) [facility] [id number] 18:17:00 Test Item Value Reference Range Interpretation [...] failure, acidosis, acute neurological disease, and persistent tachyarrhythmia.Data Processing Operator ID - ARIES EB-type Natriuretic Factor (BNP)2020-02-12 18:10:00 Test Item Value Reference Range Interpretation Comments BNP (test code = 47708-2) 18 pg/mL 0-100 MARGARITA (test code = MARGARITA) Data Processing Operator ID - ARIES E Lab Interpretation (test Normal code = 81611-3) [facility]BNP)2020-02-12 18:10:00 Test Item Value Reference Range Interpretation Comments B-TYPE NATRIURETIC PEPTIDE (BEAKER) 18 pg/mL 0-100 (test code = 700) Data Processing Operator KRISTINA CHRIS EBasic Metabolic [id number] 18:07:00 Test Item Value Reference Range Interpretation Comments Sodium (test code = 139 meq/L 198-282 4637-2) Potassium (test code 3.8 meq/L 3.5-5.1 = 2823-3) Chloride (test code = 106 meq/L 98-107 2075-0) CO2 (test code = 25 meq/L 22-29 2028-9) BUN (test code = 10 mg/dL 7-21 3094-0) Creatinine (test code 0.70 mg/dL 0.57-1.25 = 2160-0) Glucose (test code = 184 mg/dL 70-105 H 2345-7) Calcium (test code = 8.8 mg/dL 8.4-10.2 08894-8) EGFR (test code = 107 mL/min/1.73 sq m INSUFF ICIENT 25901-4) CLINICAL DATA T O CALCULATE ESTIMATED GFR. MARGARITA (test code = MARGARITA) Data Processing Operator KRISTINA CHRIS E Lab Interpretation Abnormal (test code = 11623-3) [facility] METABOLIC [id number] 18:07:00 Test Item Value Reference Range Interpretation [...] DATA TO CALCU LATE m ESTIMATED GFR. Data Processing Operator ID - ARIES ERAD, CHEST, 2 [id number] 17:35:00Reason for exam:->WHEEZINGFINAL REPORT TECHNIQUE: Frontal and [...] MDReport Verified Date/Time: 02/12/2020 17:35:52 Reading Location: [address] Transitional Reading Room XR chest 2 [id number] 17:35:00Interface, External Ris In - 02/12/2020 5:38 [...] Grigsbyeport Verified Date/Time: 02/12/2020 17:35:52 Reading Location: [facility] C0[facility] Transitional Reading Room Electronicallysigned by: DARSHANA GRIGSBY MD on 02/12/2020 05:35 [facility] CBC with platelet count + automated [id number] 17:34:00 Test Item Value Reference Range Interpretation [...] 450 K/CU MM MPV (test code = 63080-5) 10.8 fL 9.4-12.3 nRBC (test code = [...] 2801) Lab Interpretation (test code = Abnormal 40780-9) [facility] W/PLT COUNT & AUTO [id number] 17:34:00 Test Item Value Reference Range Interpretation [...] PERCENT (BEAKER) (test code = 2801) CHEM [id number] 22:38:0095[facility]annCHEM HCKND7008-66-90 22:38:0013 [facility] HermannCHEM QUEOA9148-85-19 22:38:0010[facility] HermannCHEM PANEL 2017-02-27 22:38:000.74[facility] HermannCHEM SONGD7453-11-36 22:38:0028[facility] HermannCHEM TUHHH9671-87-91 22:38:003.6[facility] HermannCHEM XCSVZ3107-85-23 22:38:0081[facility] HermannCHEM TAXYU2732-22-53 22:38:90348Dkbqltiz HermannCHEM WQWTH0999-54-73 22:38:000.3[facility] HermannCHEM GKVUU4145-29-02 22:38:14906 [facility]annCHEM ZENTO3786-00-69 22:38:007.9[facility] HermannCHEM PANEL 2017-02-27 22:38:008.9[facility] HermannCHEM IWGAQ3713-81-77 22:38:41370Uflsdadr HermannCHEM YSVMG1336-97-09 22:38:003.9[facility] HermannCHEM MNYXH1136-85-09 22:38:0029[facility] HermannCHEM VSVCI3171-29-20 22:38:000.8[facility] HermannCHEM GHNNP1851-36-78 22:38:0010.9[facility] HermannCHEM RPQQP0061-98-04 22:38:004.3 [facility]annCHEM LTPID9930-61-82 22:38:0014[facility] HermannCHEM PANEL 2017-02-27 22:38:12484Myjejlps XrbgbcpLMTVCKAGXLDTC2656-33-79 22:38:001[facility] JrbxhfyBPKAIBQBAE5636-81-49 22:38:0064.7[facility] BzcvvtrAWXSQSLZDP1519-71-83 22:38:002.9[facility] SvuhgsvDPTGZJJHGX2030-39-51 22:38:000.1[facility] IPNIGYOCUV0986-46-95 22:38:000.4[facility] AbaofjpYOEOSEJBTC0665-01-28 22:38:000.9 [facility] SwcbxhmBFGURIPFYL3799-23-77 22:38:007.8[facility] HermannHEMATOLOGY 2017-02-27 22:38:003.2[facility] TbawryhOJQICSQKPN7128-91-35 22:38:007.4[facility] NbbpsnvTDNWTPZKRX6572-61-21 22:38:0024.1[facility] IyatyfqYNIIXCPZDF5124-65-62 22:38:000.6[facility] FccfmodCJMWTKJXEQ4145-83-75 22:38:0040.4[facility] LKLXBMXVDB5368-73-27 22:38:0013.9[facility] NeuncbyTGEHHXCZQI7204-44-61 22:38:00 4.61[facility] WopxjpqNCVUODNGGC4708-95-75 22:38:0012.0[facility] HermannHEMATOLOGY 2017-02-27 22:38:008.1[facility] LebyzjsPNLEZTRNUO5316-68-28 22:38:0013.9[facility] GnceslrQVHPBHKSYG9325-30-92 22:38:12172Abvrgexh GzduzumNQITKEBITR5589-12-02 22:38:0034.5[facility] BqecajuCXNBJNMLOI9532-86-14 22:38:00 Test Item Value Reference Range Interpretation Comments MCH (test code = MCH) 30.2 pg 27.0-31.0 [facility] SxconyzOLVHDJQUHI8259-61-67 22:38:0087.5[facility] HermannURINE AND STOOL 2017-02-27 22:29:00See Note (02/27/17 5:29 PM)[facility]ann[facility]INE AND STOOL 2017-02-27 22:29:00Moderate *ABN*(02/27/17 5:29 PM)[facility] AND IUYSG2437-67-51 22:29:004.0[facility]ann[facility] AND VVRVC7002-62-11 22:29:00See Note 1(02/27/17 5:29 PM)[facility] AND XLTAB1239-34-63 22:29:00 Negative *NA*(02/27/17 5:29 PM)[facility] AND KQRJM7452-27-37 22:29:00 See Note (02/27/17 5:29 PM)[facility] AND XFMNT6573-96-53 22:29:00 Large *ABN*(02/27/17 5:29 PM)[facility] AND BCJLH0132-72-47 22:29:00 Slight Cloudy (02/27/17 5:29 PM)[facility] AND PBVMZ7434-89-00 22:29:00>=1.030 *ABN*(02/27/17 5:29 PM)[facility] AND STOOL 2017-02-27 22:29:00 Test Item Value Reference Range Interpretation Comments UA pH (test code = UA pH) 5.5 1 5.0-8.0 [facility]ann[facility] AND PCGEY5657-46-00 22:29:00Orange *ABN*(02/27/17 5:29 PM) [facility]annURINE KWHP0875-22-06 22:29:00Negative (02/27/17 5:29 PM)[facility] IpcdtzfRabhlfatp8496-88-01 16:20:005.5[facility] PmzrtccBqcdrszvh5478-42-22 16:20:62257Znbvxikn UvfrpehUywamnsle7837-49-66 16:20:64471Wlyqldbh Srini Qbwjeilaw8070-70-52 16:20:0036[facility] JrmssohDhorjeqdr5211-64-09 16:20:0090 [facility] TofpjcfPfkigpxss6592-22-00 15:30:86818Omtpuisd HermannChemistry 2014-01-17 15:30:51825Aphkfgup UcgtxhwPwgjllctj3214-66-65 15:30:0031[facility] CkxqptzCenkkpisb0668-59-70 15:30:00See Note mg/dLMemorial HermannChemistry 2014-01-17 15:30:57542 MEQ/LMemorial WqcxmtmGcdsijbqx2042-50-54 15:30:004.6 MEQ/LMemorial ZzamjmbKfqlstyye2522-12-63 15:30:000.7[facility] HermannChemistry 2014-01-17 15:30:0015[facility] JzgdemaKpiszcvqt9280-64-18 15:30:00 Test Item Value Reference Range Interpretation Comments BUN/CREAT (test code = BUN/CREAT) 21 1 6-25 Memorial DnfbowcLdxsqxlvs7544-65-50 15:30:004.3[facility] HermannChemistry 2014-01-17 15:30:009.0[facility] CrajdzuIibiulobn6881-47-35 15:30:0030[facility] BwxingePqlhlutzw2669-90-23 15:30:0012[facility] XbyfhdoJvgsjtofg5777-74-81 15:30:0073[facility] TfzvxyrAmoqidird0629-81-93 15:30:001.680[facility] Ecnerwppl4827-63-86 15:30:46312Ffhxbuge XoikylcDwswoimra9493-97-12 15:30:55378 [facility] VrbxyqaOcvnuzwso4426-64-99 15:30:0031[facility] HermannChemistry 2014-01-17 15:30:00See Note mg/dLMemorial EcydvkkRobkpqyef4978-99-73 15:30:69802 MEQ/LMemorial PjlhopfMomnmjvtn0395-16-16 15:30:004.6 MEQ/L[facility] [place] Wmorvkkom1463-60-24 15:30:000.7[facility] KyzqjewRufivczoo9370-66-82 15:30:0015 Memorial OstxltcXotvzpwch4548-87-04 15:30:00 Test Item Value Reference Range Interpretation Comments BUN/CREAT (test code = BUN/CREAT) 21 1 6-25 Memorial AxkbnbfRajzfmtom1924-18-01 15:30:004.3[facility] HermannChemistry 2014-01-17 15:30:009.0[facility] AxwpehyOmpkujnih9351-75-18 15:30:0030[facility] ZbnvvfjDyguzqcsm3154-01-11 15:30:0012Mem[facility] HtikyfhUdpkmmsdv8872-25-73 15:30:0073Mem[facility] PoaqvzkVlbslmlwt0860-77-38 15:30:001.680[facility] Srini Uosovhzduf4927-94-16 15:30:0014.9[facility] PzyedfxGdzfnmplhm3038-65-29 15:30:00 43.8[facility] DqzejroXqnoudmlcr6143-36-77 15:30:58463 K/CMMMemorial Srini Ogvxikpyzf2129-82-51 15:30:0014.9Memorial TxoefnbFkrfaiytqj1159-77-80 15:30:00 43.8[facility] QxayctjNhgfvuxpxv7546-53-67 15:30:57648 K/CMMMemorial HermannOb/Metal Work Duct Installer 2013-02-17 14:53:37CompleteMemorial HermannOb/Ite7485-73-02 14:53:37Complete [facility] LfeopghRkxojgyir8231-14-36 14:53:37CompleteMemorial HermannPathology 2013-02-17 14:53:37CompleteMemorial Srini
[2020-06-18] MEDS ORDERED: NA CHLORIDE 0.9% 500 ML ONE (02:42)
[2020-06-18] MEDS ORDERED: ONDANSETRON 4 MG/2 ML VIAL ONE (02:42)
[2020-06-18] MEDS ORDERED: MORPHINE 4 MG/ML SYR ONE ×2 (02:42→03:51)
[2020-06-18 03:03] LABS: Absolute Lymphocytes (CBC) 2.3 K/uL (0.7-4.9); Basophils % 0.6 % (0-1.3); Hematocrit 39.6 % (36.0-45.0); Lymphocytes % 20.5 % (15.3-44.8); MPV 8.9 fL (7.6-11.3); RBC Red Blood Cell Count 4.27 M/uL (3.86-4.86)
[2020-06-18 03:11] LABS: Albumin 3.9 g/dL (3.4-5.0); Bilirubin Direct 0.1 mg/dL (0-0.2); Bilirubin Total 0.5 mg/dL (0.2-1.0); Potassium 3.5 mmol/L (3.5-5.1); Protein, Total 7.8 g/dL (6.4-8.2)
[2020-06-18] MEDS ORDERED: PROMETHAZINE INJ 25 MG/ML AMP ONE (03:50)
--- NOTE | 2020-06-18 04:07 | ER ---
Nurse's Notes [facility] Name: Kelley Ordaz Age: 49 yrs Sex: Female : 1970 Arrival Date: 06/18/2020 Time: 02:13 Bed 6 Private MD: Diagnosis: Pancreatic cancer;Other chronic pancreatitis Presentation: 06/18 02:20 Chief complaint: Patient states: I am feeling nauseated, having abdominal pain and back rr5 pain, started last week on and off it gets worst today. I took norco and put lidocaine patch on my back but it did not work. 02:20 Coronavirus screen: Client denies travel out of the [place] in the last 14 days. At this rr5 time, the client does not indicate any symptoms associated with coronavirus-19. Ebola Screen: Patient negative for fever greater than or equal to 101.5 degrees Fahrenheit, and additional compatible Ebola Virus Disease symptoms Patient denies exposure to infectious person. Patient denies travel to an Ebola-affected area in the 21 days before illness onset. Initial Sepsis Screen: Does the patient meet any 2 criteria? No. Patient's initial sepsis screen is negative. Does the patient have a suspected source of infection? Yes: Acute abdominal pain. Risk Assessment: Do you want to hurt yourself or someone else? Patient reports no desire to harm self or others. 02:20 Method Of Arrival: Ambulatory rr5 02:20 Acuity: DEJUAN 3 rr5 02:20 Onset of symptoms was May 2020. 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 mg2 Historical: - Allergies: 02:20 Ciprofloxacin; rr5 02:20 Iodine (Respiratory distress); IV iodine contrast; rr5 - Home Meds: 02:20 Abilify 15 mg Oral tab 0.5 tab once daily [Active]; aspirin 81 mg Oral chew 1 tab once rr5 daily [Active]; amlodipine-olmesartan 1-20 Oral 1 tab once daily [Active]; Lipitor 80 mg Oral tab once daily [Active]; metoprolol tartrate 25 mg Oral tab 2 times per day [Active]; Novolog PenFill 100 unit/mL subcutaneous crtg 35 unit three times a day [Active]; Plavix 75 mg Oral tab 1 tab once daily [Active]; Repatha SureClick subcutaneous every 2 wks [Active]; Triseba SQ 60 unit daily [Active]; on chemotherapy [Active]; Vascepa 1 gram Oral cap three times a day [Active]; Zetia 10 mg Oral tab 1 tab once daily [Active]; - PMHx: 02:20 CAD; Depression; Diabetes - IDDM; Diverticulitis; High Cholesterol; Hypertension; rr5 Myocardial infarction; pancreatic cancer; Pancreatitis; - PSHx: 02:20 Carpal Tunnel Repair; cataract surgery; Tubal ligation; rr5 - Immunization history:: Adult Immunizations up to date. - Social history:: Smoking status: Patient reports the use of cigarette tobacco products, smokes one-half pack cigarettes per day, Patient/guardian denies using alcohol, street drugs. - Family history:: not pertinent. - Hospitalizations: : No recent hospitalization is reported. Screenin:21 Abuse screen: Denies threats or abuse. Denies injuries from another. Nutritional mg2 screening: No deficits noted. Tuberculosis screening: No symptoms or risk factors identified. Fall Risk None identified. Assessment: 02:20 General: Appears in no apparent distress. comfortable, Behavior is calm, cooperative. mg2 Pain: Complains of pain in back and abdomen. Neuro: Level of Consciousness is awake, alert, obeys commands, Oriented to person, place, time, situation. Cardiovascular: Capillary refill < 3 seconds Patient's skin is warm and dry. Respiratory: Airway is patent Respiratory effort is even, unlabored, Respiratory pattern is regular, symmetrical. GI: Bowel sounds present X 4 quads. Abd is soft. GI: Reports nausea, vomiting. EENT: No signs and/or symptoms were reported regarding the EENT system. Derm: Skin is intact, is healthy with good turgor, Skin is pink, warm \T\ dry. normal. Musculoskeletal: Circulation, motion, and sensation intact. Capillary refill < 3 seconds. 03:33 Reassessment: Patient appears in no apparent distress at this time. Patient and/or mg2 family updated on plan of care and expected duration. Pain level reassessed. Patient is alert, oriented x 3, equal unlabored respirations, skin warm/dry/pink. 03:33 Reassessment: ED provider aware patient still complaining of abdominal pain and nausea rr5 with order made and carried out. Vital Signs: 02:20 BP 174 / 85; Pulse 96; Resp 19; Temp 97.2; Pulse Ox 97% ; Weight 97.52 kg; Height 5 ft. rr5 6 in. (167.64 cm); Pain 8/10; 03:33 BP 140 / 76; Pulse 75; Resp 18; Pulse Ox 96% on R/A; mg2 03:34 BP 140 / 76; Pulse 90; Resp 16; Pulse Ox 99% ; rr5 02:20 Body Mass Index 34.70 (97.52 kg, 167.64 cm) rr5 ED Course: 02:13 Patient arrived in ED. ag3 02:14 Jermaine Brock, RN is Primary Nurse. rr5 02:14 Michael Santamaria MD is Attending Physician. rn 02:22 Patient has correct armband on for positive identification. Pulse ox on. NIBP on. mg2 02:25 Triage completed. rr5 02:30 Inserted saline lock: 20 gauge in right antecubital area, using aseptic technique. mg2 Blood collected. 02:33 No provider procedures requiring assistance completed. mg2 02:34 Arm band placed on. mg2 02:56 CT Abd/Pelvis - Without Contrast In Process Unspecified. EDMS 04:15 IV discontinued, intact, bleeding controlled, No redness/swelling at site. Pressure mg2 dressing applied. Administered Medications: 02:32 Drug: NS 0.9% 500 ml Route: IV; Rate: bolus; Site: right antecubital; mg2 04:07 Follow up: Response: No adverse reaction; IV Status: Completed infusion; IV Intake: mg2 500ml 02:33 Drug: morphine 4 mg Route: IVP; Site: right antecubital; mg2 03:30 Follow up: Response: No adverse reaction; RASS: Alert and Calm (0) rr5 02:33 Drug: Zofran (Ondansetron) 4 mg Route: IVP; Site: right antecubital; mg2 03:30 Follow up: Response: No adverse reaction; Nausea unchanged rr5 03:40 Drug: Phenergan 12.5 mg Route: IVP; Site: right antecubital; rr5 04:07 Follow up: Response: No adverse reaction; Marked relief of symptoms mg2 03:42 Drug: morphine 4 mg {Note: rass 0.} Route: IVP; Site: right antecubital; rr5 04:07 Follow up: Response: No adverse reaction mg2 Intake: 04:07 IV: 500ml; Total: 500ml. mg2 Outcome: 04:06 Discharge ordered by . rn 04:16 Discharged to home ambulatory. mg2 04:16 Condition: stable 04:16 Discharge instructions given to patient, Instructed on discharge instructions, follow up and referral plans. medication usage, Demonstrated understanding of instructions, follow-up care, medications, Prescriptions given X 2. 04:16 Patient left the ED. mg2 Signatures: Dispatcher [employer] EDMS Michael Santamaria MD MD rn Gardose, Michele, RN RN mg2 Talya Gale ag3 Jermaine Brock, RN RN rr5
--- NOTE | 2020-06-18 04:07 | EDPHYS ---
Physician Documentation [facility] Name: Kelley Ordaz Age: 49 yrs Sex: Female : 1970 Arrival Date: 06/18/2020 Time: 02:13 Bed 6 Private MD: ED Physician Michael Santamaria HPI: 06/18 02:28 This 49 yrs old Female presents to ER via Ambulatory with complaints of rn Abdominal Pain, Back Pain. 02:28 The patient presents with abdominal pain in the epigastric area. Onset: The rn symptoms/episode began/occurred 1 week(s) ago. The symptoms radiate to back. Associated signs and symptoms: none. Pertinent negatives: blood in stools, fever, vomiting. The symptoms are described as intermittent, sharp. Modifying factors: The symptoms are alleviated by nothing, the symptoms are aggravated by touching the area. Severity of pain: At its worst the pain was moderate in the emergency department the pain is unchanged. The patient has experienced similar episodes in the past. Reports has pancreatic cancer, off chemo for 1 month, + epigastric and back pain similar to previous episodes of pancreatitis. NO fever. No vomiting. NO diarrhea. . 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 mg2 Historical: - Allergies: 02:20 Ciprofloxacin; rr5 02:20 Iodine (Respiratory distress); IV iodine contrast; rr5 - Home Meds: 02:20 Abilify 15 mg Oral tab 0.5 tab once daily [Active]; aspirin 81 mg Oral chew 1 tab once rr5 daily [Active]; amlodipine-olmesartan 1-20 Oral 1 tab once daily [Active]; Lipitor 80 mg Oral tab once daily [Active]; metoprolol tartrate 25 mg Oral tab 2 times per day [Active]; Novolog PenFill 100 unit/mL subcutaneous crtg 35 unit three times a day [Active]; Plavix 75 mg Oral tab 1 tab once daily [Active]; Repatha SureClick subcutaneous every 2 wks [Active]; Triseba SQ 60 unit daily [Active]; on chemotherapy [Active]; Vascepa 1 gram Oral cap three times a day [Active]; Zetia 10 mg Oral tab 1 tab once daily [Active]; - PMHx: 02:20 CAD; Depression; Diabetes - IDDM; Diverticulitis; High Cholesterol; Hypertension; rr5 Myocardial infarction; pancreatic cancer; Pancreatitis; - PSHx: 02:20 Carpal Tunnel Repair; cataract surgery; Tubal ligation; rr5 - Immunization history:: Adult Immunizations up to date. - Social history:: Smoking status: Patient reports the use of cigarette tobacco products, smokes one-half pack cigarettes per day, Patient/guardian denies using alcohol, street drugs. - Family history:: not pertinent. - Hospitalizations: : No recent hospitalization is reported. ROS: 02:28 Constitutional: Negative for fever, chills, and weight loss, Eyes: Negative for injury, rn pain, redness, and discharge, Cardiovascular: Negative for chest pain, palpitations, and edema, Respiratory: Negative for shortness of breath, cough, wheezing, and pleuritic chest pain, Abdomen/GI: Negative for nausea, vomiting, diarrhea, and constipation, Back: Negative for injury MS/Extremity: Negative for injury and deformity, Skin: Negative for injury, rash, and discoloration, Neuro: Negative for headache, weakness, numbness, tingling, and seizure. Exam: 02:28 Constitutional: This is a well developed, well nourished patient who is awake, alert, rn and in no acute distress. Head/Face: Normocephalic, atraumatic. Cardiovascular: Regular rate and rhythm. No pulse deficits. Respiratory: Speaking full sentences, unlabored. Abdomen/GI: soft, mild epigastric tenderness, no rebound Back: No spinal tenderness. No costovertebral tenderness. Full range of motion. Skin: Warm, dry MS/ Extremity: Pulses equal, no cyanosis. Neurovascular intact. Full, normal range of motion. Equal circumference. Neuro: Awake and alert, GCS 15 Vital Signs: 02:20 BP 174 / 85; Pulse 96; Resp 19; Temp 97.2; Pulse Ox 97% ; Weight 97.52 kg; Height 5 ft. rr5 6 in. (167.64 cm); Pain 8/10; 03:33 BP 140 / 76; Pulse 75; Resp 18; Pulse Ox 96% on R/A; mg2 03:34 BP 140 / 76; Pulse 90; Resp 16; Pulse Ox 99% ; rr5 02:20 Body Mass Index 34.70 (97.52 kg, 167.64 cm) rr5 MDM: 02:15 Patient medically screened. rn 03:40 Differential diagnosis: gastritis, gastroesophageal reflux disease, non-specific abd rn pain, pancreatitis, Peptic Ulcer Disease, pancreatic cancer. Data reviewed: vital signs, nurses notes, lab test result(s), radiologic studies, CT scan, and as a result, I will discharge patient. Counseling: I had a detailed discussion with the patient and/or guardian regarding: the historical points, exam findings, and any diagnostic results supporting the discharge/admit diagnosis, lab results, radiology results, the need for outpatient follow up, to return to the emergency department if symptoms worsen or persist or if there are any questions or concerns that arise at home. Response to treatment: the patient's symptoms have markedly improved after treatment, and as a result, I will discharge patient. Special discussion: Based on the patient's Hx, exam, and Dx evaluation, there is no indication for emergent surgery or inpatient Tx. It is understood by the patient/guardian that if the Sx's persist or worsen they need to return immediately for re-evaluation. I discussed with the patient/guardian in detail that at this point there is no indication for admission to the hospital. It is understood, however, that if the symptoms persist or worsen the patient needs to return immediately for re-evaluation. ED course: No acute changes/findings on CT abdomen, + slight pauly-pancreatic inflammation and pancreatic cancer. Will try and get better pain control and plan for dc home with pcp and oncology f/u. . 06/18 02:27 Order name: Basic Metabolic Panel; Complete Time: 03:14 rn 06/18 02:27 Order name: CBC with Diff; Complete Time: 03: rn 06/18 02:27 Order name: Hepatic Function; Complete Time: 03: rn 06/18 02:27 Order name: Lipase; Complete Time: 03: rn 06/18 02:27 Order name: CT Abd/Pelvis - Without Contrast rn 06/18 02:27 Order name: IV Saline Lock; Complete Time: rn 06/18 02: Order name: Labs collected and sent; Complete Time: : rn Administered Medications: 02:32 Drug: NS 0.9% 500 ml Route: IV; Rate: bolus; Site: right antecubital; mg2 04:07 Follow up: Response: No adverse reaction; IV Status: Completed infusion; IV Intake: mg2 500ml 02:33 Drug: morphine 4 mg Route: IVP; Site: right antecubital; mg2 03:30 Follow up: Response: No adverse reaction; RASS: Alert and Calm (0) rr5 02:33 Drug: Zofran (Ondansetron) 4 mg Route: IVP; Site: right antecubital; mg2 03:30 Follow up: Response: No adverse reaction; Nausea unchanged rr5 03:40 Drug: Phenergan 12.5 mg Route: IVP; Site: right antecubital; rr5 04:07 Follow up: Response: No adverse reaction; Marked relief of symptoms mg2 03:42 Drug: morphine 4 mg {Note: rass 0.} Route: IVP; Site: right antecubital; rr5 04:07 Follow up: Response: No adverse reaction mg2 Disposition: 06/18/20 04:06 Discharged to Home. Impression: Pancreatic cancer, Other chronic pancreatitis. - Condition is Stable. - Discharge Instructions: Acute Pancreatitis, Chronic Pancreatitis. - Prescriptions for Zofran ODT 4 mg Oral tablet,disintegrating - place 1 tablet by TRANSLINGUAL route every 8 hours As needed; 20 tablet. - Medication Reconciliation Form, Thank You Letter, Antibiotic Education, Prescription Opioid Use form. - Follow up: Private Physician; When: As needed; Reason: Recheck today's complaints, Re-evaluation by your physician. - Problem is an ongoing problem. - Symptoms have improved. Signatures: Dispatcher [employer] EDMichael Nix MD MD rn Gardose, Michele, RN RN mg2 Jermaine Brock RN RN rr5 Corrections: (The following items were deleted from the chart) 04:16 04:06 06/18/2020 04:06 Discharged to Home. Impression: Pancreatic cancer; Other chronic mg2 pancreatitis. Condition is Stable. Discharge Instructions: Acute Pancreatitis, Chronic Pancreatitis. Prescriptions for Zofran ODT 4 mg Oral tablet,disintegrating - place 1 tablet by TRANSLINGUAL route every 8 hours As needed; 20 tablet. and Forms are Medication Reconciliation Form, Thank You Letter, Antibiotic Education, Prescription Opioid Use. Follow up: Private Physician; When: As needed; Reason: Recheck today's complaints, Re-evaluation by your physician. Problem is an ongoing problem. Symptoms have improved. rn
[2020-06-18 04:29] VITALS: TEMP 97.2
[2020-06-18 04:30] VITALS: BP 140/76
[2020-06-18 04:32] VITALS: O2SAT 99
--- NOTE | 2020-06-18 11:38 | RAD REPORT ---
EXAM DESCRIPTION: CT ABDOMEN AND PELVIS WITHOUT CONTRAST CLINICAL HISTORY: Hx of pancreatic cancer, off chemo for 1 month;Abd pain COMPARISON: 03/24/2020 TECHNIQUE: CT of the abdomen and pelvis without IV contrast. Evaluation of the solid organs and vasc ulature is suboptimal due to lack of IV contrast. FINDINGS: Lung Bases: The visualized lung bases are clear. Bones: Mild degenerative endplate spondylosis and facet arthropathy. Abdomen: Liver: The liver has normal size and decreased density. Linear hypodensity in the right hepatic lobe is stable. Gallbladder: No calcified gallstones. Spleen, Pancreas, and Adrenal Glands: Splenomegaly. Mild enlargement of the body of the pancreas wi th mild adjacent inflammatory change. Kidneys: The kidneys have normal size without evidence of hydronephrosis. No obstructing ureteral johnny culi. Focal calcification in interpolar left kidney. Vasculature: Aortoiliac atherosclerosis. IVC is unremarkable. Stomach: The stomach and duodenum have normal course. Other: No free intraperitoneal air. No free fluid or lymphadenopathy. Pelvis: Bladder: Urinary bladder is unremarkable. Bowel: No dilated loops of large or small bowel. Scattered diverticula colon. Appendix: Normal appendix. Pelvis: Uterus is not enlarged. IMPRESSION: 1. Mild fullness involving the pancreatic body compatible with known pancreatic neoplasm . Minimal adjacent inflammatory change. This could be seen with mild superimposed acute pancreatitis. 2. Nonobstructing left nephrolithiasis. 3. Stable linear hypodensity in the right hepatic lobe. 4. Hepatic steatosis. 5. Diverticulosis without evidence of acute diverticulitis. 6. Splenomegaly. This exam was performed according to our departmental dose-optimization program, which includes autom ated exposure control, adjustment of the mA and/or kV according to patient size and/or use of iterati ve reconstruction technique. Electronically signed by: Jimbo Hernandez 06/18/2020 3:11 AM CDT Due to temporary technical issues with the PACS/Fluency reporting system, reports are being signed by the in house radiologist without review as a courtesy to ensure prompt reporting. The interpreting r adiologist is fully responsible for the content of the report.
== END 2020-06-18 04:16 | disposition home or self-care (01) ==
LOC: ER 02:12
DX: C25.9 Malignant neoplasm of pancreas, unspecified (principal); K86.1 Other chronic pancreatitis; I10 Essential (primary) hypertension; E11.9 Type 2 diabetes mellitus without complications; Z79.4 Long term (current) use of insulin; F32.9 Major depressive disorder, single episode, unspecified; Z79.01 Long term (current) use of anticoagulants; Z79.82 Long term (current) use of aspirin; Z88.1 Allergy status to other antibiotic agents; Z91.048 Other nonmedicinal substance allergy status
CPT/HCPCS: 96361; 85025; 80048; 36415; 80076; 83690; 74176; 96375; 96374; 99284; J2550; J7040; J2405